=== PATIENT | female | born 1995 | race Caucasian/White ===

== ENCOUNTER → 2016-06-05 | Outpatient (CLI) | payer OTHER ==
[~2016-06-05] MED LIST: ATV5X PO; BCPILLS PO; CALC500C73 PO; CHOL1CAP85 PO; EPP3/2 IM; ERGO500037 PO; GLGKIT INJ; INSPMPNVLG; INSPMPNVLG SQ; LINA1CAP PO; LORA-741 PO; LXT PO; MRLP527 PO; MULT1CHW44 PO; ONDA-63 PO; RANI150T2 PO; SIME80CH PO; VITAMIN D2 PO; VNTHFA/IN INH; VTMD PO
[2016-06-06 07:33] LABS: ESTIMATED AVERAGE GLUCOSE 206 mg/dl; HA1C FLAG Normal (Normal)
== END | disposition home or self-care (01) ==
LOC: C.LAB1850 14:31
PROVIDERS: ATTEND Internal Medicine Endocrinology, Diabetes & Metabolism
DX: E10.9 Type 1 diabetes mellitus without complications (principal)

== ENCOUNTER 2016-06-08 11:22 | Emergency (ER) | payer OTHER ==
[~2016-06-08] VITALS: Ht 162.6 cm; Wt 57.8 kg
[2016-06-08 11:26] VITALS: TEMP 37; Ht 162.6 cm; Wt 57.8 kg
[2016-06-08] MEDS ORDERED: NovoLIN-R INSULIN PER UNIT CHARGE IV STA (11:55)
[2016-06-08] MEDS ORDERED: SODIUM CHLORIDE 0.9% 1000ML 1,000 ML IV STA ×2 (11:55)
[2016-06-08 12:14] LABS: HEMATOCRIT 40.7 % (37-47); MEAN CELL VOLUME 85.5 fL (80-100); MEAN CORPUSCULAR HEMOGLOBIN 30.5 pg (25-34); MEAN CORPUSCULAR HGB CONC 35.6 g/dl (32-36); MEAN PLATELET VOLUME 11.8 fL (7.4-10.4); PLATELET COUNT 300 K/uL (130-400); RED BLOOD COUNT 4.76 M/uL (4.2-5.4); WHITE BLOOD COUNT 8.63 K/uL (4.8-10.8)
[2016-06-08 12:28] LABS: BETA-HYDROXYBUTYRATE 17.44 mg/dL (0.2-2.81); CALCIUM 8.7 mg/dl (8.5-10.1); POTASSIUM 4.1 mmol/L (3.5-5.1)
[2016-06-08 12:31] LABS: BUN/CREATININE RATIO 11.2 (10-20)
[2016-06-08 12:33] LABS: VEN BLD GAS O2 SATURATION 93.7 %; VEN BLOOD GAS BASE EXCESS -1.9 mmol/L
[2016-06-08 13:07] LABS: URINE APPEARANCE CLEAR (CLEAR); URINE BILIRUBIN NEG (NEG); URINE COLOR YELLOW; URINE NITRITE NEG (NEG); URINE SPECIFIC GRAVITY 1.035 (1.000-1.030); UROBILINOGEN NEG (NEG)
[2016-06-08 13:30] LABS: MANUAL MICROSCOPIC REQUIRED? NO; REVIEW REQ? NO
[2016-06-08 15:52] VITALS: BP 99/64; PULSE 78; O2SAT 98
[2016-06-08] MEDS ORDERED: INSPMPNVLG SQ (17:12)
--- NOTE | 2016-06-08 17:26 | EMERGENCY ROOM VISIT NOTE ---
History Report prepared by Jesúsiblino: Red Conroy Under the Supervision of: Dr. Mick Escudero M.D. First contact with patient: 11:52 Chief Complaint: HYPERGLYCEMIA Stated Complaint: ELEVATED BLOOD SUGAR AND KETONES Nursing Triage Summary: Noted occlusion in insulin pump around 1000 this am. Adjusted pump and checked bsg. Came to ED to help with elevated bsg. HX DM 1. History of Present Illness The patient is a 20 year old female who presents to the Emergency Room with complaints of acute hyperglycemia since this morning. The patient found that her insulin pump was not functioning this morning. She changed her cartridge, checked the tubing, and changed her cannula. The patient noticed an air bubble in the tubing. The patient did not check her blood sugar last night. The patient checked her sugar this morning when her pump was not functioning, which was 505. The patient is otherwise feeling nauseous and disoriented. She did not take any extra insulin. The patient admits that she has not been keeping up with her fluids. The patient has a history of Gilbert Syndrome. Source of History: patient Onset: this morning Position: other (blood sugar) Symptom Intensity: BSG 505 Quality: other (hyperglycemia) Timing: other (acute) Associated Symptoms: + nausea Review of Systems See HPI for pertinent positives & negatives. A total of 10 systems reviewed and were otherwise negative. Past Medical & Surgical Medical Problems: (1) Anxiety (2) Bipolar 1 disorder (3) Celiac disease (4) Type I diabetes mellitus Surgical Problems: (1) Hx of cataract surgery Family History Cancer Diabetes mellitus FHx: celiac disease Gallbladder disease Heart disease Hypertension Seizures Social History Smoking Status: Never Smoker Alcohol Use: none Drug Use: none Marital Status: single Housing Status: lives with roommate Occupation Status: [employer] student Current/Historical Medications Scheduled Control Pills ( Control Pills), 1 TAB PO DAILY Insulin Aspart (novoLOG INSULIN PUMP ), 1 EA SQ UD Ranitidine HCl (Ranitidine HCl), 150-300 MG PO HS Scheduled PRN Epinephrine (Epipen), 0.3 MG IM UD PRN for ALLERGIC REACTION Glucagon (Glucagon Emergency Kit), 1 MG INJ UD PRN for HYPOGLYCEMIA PROTOCOL Lorazepam (Ativan), 0.5 MG PO Q6H PRN for Anxiety Ondansetron (Ondansetron HCl), 8 MG PO Q8 PRN for Nausea Allergies Coded Allergies: Cashew (Verified Allergy, Severe, ANAPHYLAXIS, 06/08/16) Gluten (Verified Allergy, Severe, CELIAC'S DISEASE, 06/08/16) Peanut (Verified Allergy, Severe, ANAPHYLAXIS, 06/08/16) Penicillins (Verified Allergy, Severe, ANAPHYLAXIS, 06/08/16) SHELL FISH (Verified Allergy, Severe, ANAPHYLAXIS, 06/08/16) Milk (Unverified Allergy, Unknown, SENSITIVITY, 06/08/16) Oxcarbazepine (Verified Allergy, Unknown, Rash,hives and itchiness., ) Soy Allergy (Unverified Allergy, Unknown, , 06/08/16) Physical Exam Vital Signs Date Time Temp Pulse Resp B/P Pulse Ox O2 Delivery O2 Flow Rate FiO2 06/08/16 15:52 78 16 99/64 98 Room Air 06/08/16 14:45 76 16 106/61 98 Room Air 06/08/16 13:15 86 16 102/64 97 Room Air 06/08/16 11:26 37.0 114 18 111/76 96 Room Air Physical Exam GENERAL: Patient is in no acute distress. HEENT: No acute trauma, normocephalic atraumatic, mucous membranes moist, no nasal congestion, no scleral icterus. NECK: No stridor, no adenopathy, no meningismus, trachea is midline. LUNGS: Clear to auscultation bilaterally, no wheeze, no rhonchi, breath sounds equal. HEART: Without murmurs gallops or rubs, regular rate and rhythm. ABDOMEN: Soft, nontender, bowel sounds positive, no hernias, no peritonitis. EXTREMITIES: No cyanosis or edema, full range of motion of all the joints without pain or difficulty, no signs for acute trauma. NEUROLOGIC: Oriented x 3, no acute motor or sensory deficits, no focal weakness. SKIN: No rash, no jaundice, no diaphoresis. Medical Decision & Procedures Laboratory Results 06/08/16 11:45 06/08/16 11:45 Test 06/08/16 11:45 06/08/16 12:14 06/08/16 12:39 06/08/16 15:18 Red Blood Count 4.76 M/uL (4.2-5.4) Mean Corpuscular Volume 85.5 fL (80-100) Mean Corpuscular Hemoglobin 30.5 pg (25-34) Mean Corpuscular Hemoglobin Concent 35.6 g/dl (32-36) RDW Standard Deviation 36.1 fL (36.4-46.3) RDW Coefficient of Variation 11.7 % (11.5-14.5) Mean Platelet Volume 11.8 fL (7.4-10.4) Anion Gap 15.0 mmol/L (3-11) Est Creatinine Clear Calc Drug Dose 76.9 ml/min Estimated GFR () 93.3 Estimated GFR (Non- 80.5 BUN/Creatinine Ratio 11.2 (10-20) Calcium Level 8.7 mg/dl (8.5-10.1) Beta-Hydroxybutyric Acid 17.44 mg/dL (0.2-2.81) Venous Blood pH 7.45 (7.36-7.41) Venous Blood Partial Pressure CO2 31 mmHg (38.0-50.0) Venous Blood Partial Pressure O2 69 mmHg Venous Blood HCO3 21 mmol/L Venous Blood Oxygen Saturation 93.7 % Venous Blood Base Excess -1.9 mmol/L Urine Color YELLOW Urine Appearance CLEAR (CLEAR) Urine pH 5.0 (4.5-7.5) Urine Specific [place] 1.035 (1.000-1.030) Urine Protein NEG (NEG) Urine Glucose (UA) 3+ (NEG) Urine Ketones 3+ (NEG) Urine Occult Blood NEG (NEG) Urine Nitrite NEG (NEG) Urine Bilirubin NEG (NEG) Urine Urobilinogen NEG (NEG) Urine Leukocyte Esterase NEG (NEG) Bedside Glucose 204 mg/dl (70-90) Laboratory results reviewed by me. Medications Administered Medications (Trade) Dose Ordered Sig/Freddy Route Start Time Stop Time Status Last Admin Dose Admin Sodium Chloride 1,000 ml @ 999 mls/hr Q1H1M STAT IV 06/08/16 11:55 06/08/16 12:55 DC 06/08/16 11:55 999 MLS/HR Sodium Chloride (Nss 1000ml) 1,000 ml @ 125 mls/hr Q8H STAT IV 06/08/16 11:55 06/08/16 16:35 DC 06/08/16 13:14 125 MLS/HR Insulin Human Regular (novoLIN-R U-100 PER UNIT) 10 units NOW STAT IV 06/08/16 11:55 06/08/16 11:59 DC 06/08/16 12:29 10 UNITS ED Course 1155: The patient was evaluated in room C1b. A complete history and physical exam was performed. 1155: Insulin Human Regular 10 units IV, NSS 100 ml @ 125 mls/hr, NSS 1000 ml @ 999 mls/hr. 1350: The patient is doing okay. We will keep her basal rate of insulin going. She requested something to eat. 1440: The patient is still doing well. 1545: Reassessed the patient. She is doing well. Discussed the findings with her. She verbalized understanding and agreement of the treatment plan. The patient is ready for discharge. Medical Decision Differential diagnosis includes dehydration, electrolyte imbalance, hyperglycemia, infection, DKA. There is no leukocytosis or anemia. No kidney failure. Sugar was elevated at over 400. Urinalysis showed ketones, no signs of infection. VBG does not show acidosis. The patient received IV saline, IV insulin. Her sugar is now in the upper 100s and low 200s, repeat BSGs confirmed a reasonable value. The patient has restarted her insulin pump at her basal rate. She did eat a meal here. She feels markedly improved and does think she can be discharged home. I do think discharge is reasonable. The patient's insulin pump was malfunctioning, as result her sugar angelia, things are now controlled, she is being discharged home. Impression Primary Impression: Hyperglycemia Additional Impression: Dehydration Scribe Attestation The scribe's documentation has been prepared under my direction and personally reviewed by me in its entirety. I confirm that the note above accurately reflects all work, treatment, procedures, and medical decision making performed by me. Departure Information Dispostion Home / Self-Care Referrals Jorge Mancera D.O.Int.Med. (PCP) Forms HOME CARE DOCUMENTATION FORM, IMPORTANT VISIT INFORMATION, WORK / SCHOOL INSTRUCTIONS Patient Instructions My [facility] [employer] Additional Instructions keep close watch on your sugar for the next 2 days more fluids today to increase your hydration return to the ER for vomiting, fever, or worsening sugar values Problem Qualifiers
[2016-06-08] MEDS ORDERED: LORA-741 PO (18:57)
[2016-07-31] MEDS ORDERED: GLGKIT INJ (15:25)
[2016-07-31] MEDS ORDERED: ONDA-63 PO (15:25)
[2016-07-31] MEDS ORDERED: RANI150T2 PO (15:25)
[2016-07-31] MEDS ORDERED: EPP3/2 IM (17:13)
[2016-07-31] MEDS ORDERED: VNTHFA/IN INH (18:16)
[2016-07-31] MEDS ORDERED: INSPMPNVLG (18:16)
[2016-11-27] MEDS ORDERED: LINA1CAP PO (16:44)
== END 2016-06-08 16:01 | disposition home or self-care (01) ==
LOC: C.EDB 11:24 → C.EDC 16:01
DX: E10.65 Type 1 diabetes mellitus with hyperglycemia (principal); E86.0 Dehydration; F41.9 Anxiety disorder, unspecified; F31.9 Bipolar disorder, unspecified; K90.0 Celiac disease; Z96.41 Presence of insulin pump (external) (internal)

== ENCOUNTER 2016-07-27 20:53 | Emergency (ER) | payer OTHER ==
[~2016-07-27] VITALS: Ht 162.6 cm; Wt 59.5 kg
[~2016-07-27 20:53] MED LIST changes: -ATV5X PO; -BCPILLS PO; -CALC500C73 PO; -CHOL1CAP85 PO; -EPP3/2 IM; -ERGO500037 PO; -GLGKIT INJ; -INSPMPNVLG; -LINA1CAP PO; -LXT PO; -MRLP527 PO; -MULT1CHW44 PO; -ONDA-63 PO; -RANI150T2 PO; -SIME80CH PO; -VITAMIN D2 PO; -VNTHFA/IN INH; -VTMD PO
[2016-07-27 20:59] VITALS: TEMP 37; Ht 162.6 cm; Wt 59.5 kg
[2016-07-27] MEDS ORDERED: LXT PO (21:19)
[2016-07-27] MEDS ORDERED: SODIUM CHLORIDE 0.9% 1000ML 1,000 ML IV ONE (22:00)
[2016-07-27 23:06] LABS: BASO % 0.4 %; BASO ABS # 0.03 K/uL (0-0.2); COMPLETE YES; EOS % 1.3 %; HEMATOCRIT 38.7 % (37-47); IG% 0.1 %; LYMPH % 22.4 %; LYMPH ABS # 1.73 K/uL (1.2-3.4); MEAN CELL VOLUME 90.2 fL (80-100); MEAN CORPUSCULAR HEMOGLOBIN 31.5 pg (25-34); MEAN CORPUSCULAR HGB CONC 34.9 g/dl (32-36); MEAN PLATELET VOLUME 10.8 fL (7.4-10.4); MONO % 14.2 %; NEUT % 61.6 %; PLATELET COUNT 287 K/uL (130-400); RED BLOOD COUNT 4.29 M/uL (4.2-5.4); WHITE BLOOD COUNT 7.73 K/uL (4.8-10.8)
[2016-07-27 23:06] LABS: URINE APPEARANCE CLEAR (CLEAR); URINE BILIRUBIN NEG (NEG); URINE COLOR DK YELLOW; URINE EPITHELIAL CELL AUTO >30 /lpf (0-5); URINE NITRITE NEG (NEG); URINE SPECIFIC GRAVITY 1.034 (1.000-1.030); UROBILINOGEN NEG (NEG); ZZUR CULT IF INDIC CLEAN CATCH YES
[2016-07-27 23:07] LABS: MANUAL MICROSCOPIC REQUIRED? NO; REVIEW REQ? YES
[2016-07-27 23:23] LABS: BLOOD UREA NITROGEN 12 mg/dl (7-18); CREATININE 0.59 mg/dl (0.60-1.20); GLUCOSE 112 mg/dl (70-99)
[2016-07-27 23:24] LABS: ALT/SGPT 17 U/L (12-78); AST/SGOT 10 U/L (15-37); CARBON DIOXIDE 31 mmol/L (21-32); CHLORIDE 108 mmol/L (98-107); MAGNESIUM 1.9 mg/dl (1.8-2.4); POTASSIUM 3.9 mmol/L (3.5-5.1); SODIUM 144 mmol/L (136-145)
[2016-07-27 23:27] LABS: CALCIUM 8.4 mg/dl (8.5-10.1)
[2016-07-27 23:34] LABS: ALB/GLOB RATIO 1.3 (0.9-2); ALKALINE PHOSPHATASE 65 U/L (45-117)
[2016-07-27 23:49] LABS: ACETAMINOPHEN < 2 ug/ml (10-30)
[2016-07-28 00:19] VITALS: BP 109/68; PULSE 71; O2SAT 98
[2016-07-28 01:20] LABS: BENZODIAZEPINE, URINE NEG (NEG); COCAINE,URINE NEG (NEG); PHENCYCLIDINE, URINE NEG (NEG)
--- NOTE | 2016-07-28 04:51 | EMERGENCY ROOM VISIT NOTE ---
History First contact with patient: 21:40 Chief Complaint: OVERDOSE (INTENTIONAL) Stated Complaint: LAXATIVE ABUSE, History of Present Illness The patient is a 21 year old female who presents to the Emergency Room with complaints of intentional laxative use today. The patient states that she has had some increased stressors this week. She states that she had an email this afternoon that worsened her anxiety, and she began taking an [id number] laxative. She states that she took 3 pills 6 hours ago and 5 pills 3 hours ago. The patient has not had vomiting or diarrhea at this point. She does use laxatives on a somewhat regular basis for history of diabetic gastroparesis. She does have her pill bottle with her, and it appears that she took a generic Senokot. The patient was not trying to harm herself and she does not have suicidal or homicidal ideation. She has outpatient counseling twice weekly, as well as monthly psychiatry visits. She does have Ativan that she will use when necessary. The patient has not been ill recently. She denies chance of . She is without additional symptoms. She rates her discomfort a 0/ 10. Review of Systems More than 10 systems were reviewed and otherwise negative with the exception of history of present illness. Past Medical/Surgical History Medical Problems: (1) Anxiety (2) Bipolar 1 disorder (3) Celiac disease (4) Type I diabetes mellitus Surgical Problems: (1) Hx of cataract surgery Family History Cancer Diabetes mellitus FHx: celiac disease Gallbladder disease Heart disease Hypertension Seizures Social History Smoking Status: Former Smoker Alcohol Use: none Drug Use: none Marital Status: single Housing Status: lives with roommate Occupation Status: [employer] student Current/Historical Medications Scheduled Control Pills ( Control Pills), 1 TAB PO DAILY Calcium Carbonate (Calcium), 4 TABS PO DAILY Insulin Aspart (novoLOG INSULIN PUMP ), 1 EA SQ UD Laxative (Laxative), 1 TAB PO DIRECTED Multiple Vitamins W/ Minerals (Airborne Gummies), 2 TAB PO DAILY Ranitidine HCl (Ranitidine HCl), 150-300 MG PO HS Scheduled PRN Epinephrine (Epipen), 0.3 MG IM UD PRN for ALLERGIC REACTION Glucagon (Glucagon Emergency Kit), 1 MG INJ UD PRN for HYPOGLYCEMIA PROTOCOL Lorazepam (Ativan), 0.5 MG PO Q6H PRN for Anxiety Ondansetron (Ondansetron HCl), 8 MG PO Q8 PRN for Nausea Allergies Coded Allergies: Cashew (Verified Allergy, Severe, ANAPHYLAXIS, 07/27/16) Gluten (Verified Allergy, Severe, CELIAC'S DISEASE, 07/27/16) Peanut (Verified Allergy, Severe, ANAPHYLAXIS, 07/27/16) Penicillins (Verified Allergy, Severe, ANAPHYLAXIS, 07/27/16) SHELL FISH (Verified Allergy, Severe, ANAPHYLAXIS, 07/27/16) Milk (Unverified Allergy, Unknown, SENSITIVITY, 07/27/16) Oxcarbazepine (Verified Allergy, Unknown, Rash,hives and itchiness., ) Soy Allergy (Unverified Allergy, Unknown, , 07/27/16) Physical Exam Vital Signs Date Time Temp Pulse Resp B/P Pulse Ox O2 Delivery O2 Flow Rate FiO2 07/28/16 00:19 71 16 109/68 98 07/27/16 20:59 37.0 113 18 108/74 97 Room Air Physical Exam VITALS: Vitals are noted on the nurse's note and reviewed by myself. Vital signs stable. GENERAL: Well-developed, well-nourished, white female, who is in no acute distress and resting comfortably. Patient is cooperative with the examination. HEAD: Normocephalic atraumatic. EARS: External ear normal. External auditory canals clear, tympanic membranes pearly curry without erythema or effusion bilaterally. EYES: Pupils equal round and reactive to light and accommodation. Conjunctivae without injection, sclerae without icterus. Extraocular movements intact. NOSE: Patent, turbinates without inflammation or discharge. MOUTH: Mucous membranes moist. Tonsils are not enlarged. Pharynx without erythema, blood, or exudate. Uvula midline. Airway patent. NECK: Supple without nuchal rigidity. No lymphadenopathy. No thyromegaly. Cervical spine is nontender. HEART: Regular rate and rhythm without murmurs gallops or rubs. LUNGS: Clear to auscultation bilaterally without wheezes, rales or rhonchi. No retractions or accessory muscle use. ABDOMEN: Positive normal bowel sounds x 4. Soft, nontender, without masses or organomegaly. No guarding or rebound tenderness. MUSCULOSKELETAL: No muscle atrophy, erythema, or edema noted. Full range of motion without joint tenderness in all extremities. No tenderness to palpation. Normal gait. Strength 5/5 throughout. NEURO: Patient was alert and oriented to person place and time. CN II through XII grossly intact. Deep tendon reflexes 2+ throughout. No focal neurological deficits SKIN: The skin was without rashes, erythema, edema, or bruising. Capillary reflex less than 2 seconds. Medical Decision & Procedures Laboratory Results 07/27/16 22:47 Red Blood Count 4.29, Mean Corpuscular Volume 90.2, Mean Corpuscular Hemoglobin 31.5, Mean Corpuscular Hemoglobin Concent 34.9, Mean Platelet Volume 10.8, Neutrophils (%) (Auto) 61.6, Lymphocytes (%) (Auto) 22.4, Monocytes (%) (Auto) 14.2, Eosinophils (%) (Auto) 1.3, Basophils (%) (Auto) 0.4, Neutrophils # (Auto ) 4.76, Lymphocytes # (Auto) 1.73, Monocytes # (Auto) 1.10, Eosinophils # (Auto ) 0.10, Basophils # (Auto) 0.03 07/27/16 22:47 Test 07/27/16 22:10 07/27/16 22:47 07/27/16 22:58 Urine Color DK YELLOW Urine Appearance CLEAR (CLEAR) Urine pH 6.0 (4.5-7.5) Urine Specific [place] 1.034 (1.000-1.030) Urine Protein NEG (NEG) Urine Glucose (UA) NEG (NEG) Urine Ketones TRACE (NEG) Urine Occult Blood NEG (NEG) Urine Nitrite NEG (NEG) Urine Bilirubin NEG (NEG) Urine Urobilinogen NEG (NEG) Urine Leukocyte Esterase SMALL (NEG) Urine WBC (Auto) 5-10 /hpf (0-5) Urine RBC (Auto) 0-4 /hpf (0-4) Urine Hyaline Casts (Auto) 1-5 /lpf (0-5) Urine Epithelial Cells (Auto) >30 /lpf (0-5) Urine Bacteria (Auto) 1+ (NEG) Urine Test NEG (NEG) Urine Opiates Screen NEG (NEG) Urine Methadone, Qualitative NEG (NEG) Urine Barbiturates NEG (NEG) Urine Phencyclidine (PCP) Level NEG (NEG) Ur Amphetamine/Methamphetamine NEG (NEG) MDMA (Ecstasy) Screen NEG (NEG) Urine Benzodiazepines Screen NEG (NEG) Urine Cocaine Metabolite NEG (NEG) Urine Marijuana (THC) NEG (NEG) White Blood Count 7.73 K/uL (4.8-10.8) Red Blood Count 4.29 M/uL (4.2-5.4) Hemoglobin 13.5 g/dL (12.0-16.0) Hematocrit 38.7 % (37-47) Mean Corpuscular Volume 90.2 fL (80-100) Mean Corpuscular Hemoglobin 31.5 pg (25-34) Mean Corpuscular Hemoglobin Concent 34.9 g/dl (32-36) Platelet Count 287 K/uL (130-400) Mean Platelet Volume 10.8 fL (7.4-10.4) Neutrophils (%) (Auto) 61.6 % Lymphocytes (%) (Auto) 22.4 % Monocytes (%) (Auto) 14.2 % Eosinophils (%) (Auto) 1.3 % Basophils (%) (Auto) 0.4 % Neutrophils # (Auto) 4.76 K/uL (1.4-6.5) Lymphocytes # (Auto) 1.73 K/uL (1.2-3.4) Monocytes # (Auto) 1.10 K/uL (0.11-0.59) Eosinophils # (Auto) 0.10 K/uL (0-0.5) Basophils # (Auto) 0.03 K/uL (0-0.2) RDW Standard Deviation 40.9 fL (36.4-46.3) RDW Coefficient of Variation 12.4 % (11.5-14.5) Immature Granulocyte % (Auto) 0.1 % Immature Granulocyte # (Auto) 0.01 K/uL (0.00-0.02) Anion Gap 5.0 mmol/L (3-11) Est Creatinine Clear Calc Drug Dose 129.2 ml/min Estimated GFR () > 150.0 Estimated GFR (Non- 130.1 BUN/Creatinine Ratio 21.0 (10-20) Calcium Level 8.4 mg/dl (8.5-10.1) Magnesium Level 1.9 mg/dl (1.8-2.4) Total Bilirubin 1.4 mg/dl (0.2-1) Aspartate Amino Transf (AST/SGOT) 10 U/L (15-37) Alanine Aminotransferase (ALT/SGPT) 17 U/L (12-78) Alkaline Phosphatase 65 U/L (45-117) Total Protein 7.3 gm/dl (6.4-8.2) Albumin 4.1 gm/dl (3.4-5.0) Globulin 3.2 gm/dl (2.5-4.0) Albumin/Globulin Ratio 1.3 (0.9-2) Thyroid Stimulating Hormone (TSH) 1.890 uIu/ml (0.300-4.500) Salicylates Level < 1.7 mg/dl (2.8-20) Acetaminophen Level < 2 ug/ml (10-30) Ethyl Alcohol mg/dL < 3.0 mg/dl (0-3) Bedside Glucose 100 mg/dl (70-90) Medications Administered Medications (Trade) Dose Ordered Sig/Freddy Route Start Time Stop Time Status Last Admin Dose Admin Sodium Chloride (Nss 1000ml) 1,000 ml @ 999 mls/hr Q1H1M ONCE IV 07/27/16 22:00 07/27/16 23:00 DC 07/27/16 22:58 999 MLS/HR ED Course Physical exam and history were performed. Nursing notes and EMR were reviewed. Patient appears to have taken 8 [id number] Senokot over the past 6 hours. This was not a suicidal attempt or attempt to harm herself. The patient uses laxatives due to her history of diabetic gastroparesis, and she states that she had increased anxiety today. She does not appear toxic on examination. IV access was established and labs were obtained. The patient was hydrated with normal saline. Despite taking a laxative she has not had a bowel movement. I did contact [facility], who recommended hydration and normal blood work. The patient's blood work is as above and was reviewed. She does not have a significant elevated white blood cell count or gross anemia, bandemia, or significant electrolyte imbalance. Transaminases are nondiagnostic. Tylenol and salicylate levels are negative. TSH is euthyroid. Alcohol is negative. Drug of abuse screen was also negative. At this point the patient was felt to be medically cleared. I did engage the emergency department psychiatric casework manager, who also evaluated the patient. The patient does contract for safety, and is not felt to be at high risk for self-harm. She does have appropriate outpatient services, and otherwise medically appears well. I recommended the patient drink plenty of fluids and remain well hydrated, as she will likely have a bowel movement later tonight. The patient was thoroughly evaluated back to the ER with any new, worsening, or concerning symptoms. She is to follow with her counselor and psychiatrist as scheduled next week. She voiced understanding of this and rated her discomfort a 0/10 at the time of departure. The chart was completed utilizing [employer] Voice Recognition Software. Grammatical errors, random word insertions, pronoun errors, and incomplete sentences are an occasional consequence of this system due to software limitations, ambient noise, and hardware issues. Any formal questions or concerns about the content, text, or information contained within the body of this dictation should be directly addressed to the provider for clarification. . Medical Decision Differential diagnosis: Etiologies such as mood disorder, infection, hypoglycemia, electrolyte abnormalities, cardiac sources, intracerebral event, toxicologic, neurologic, as well as others were entertained. Impression Primary Impression: Medication overdose Departure Information Referrals Jorge Mancera D.O.Int.Med. (PCP) Patient Instructions [facility]
[2016-07-31] MEDS ORDERED: ONDA-63 PO (15:25)
[2016-07-31] MEDS ORDERED: GLGKIT INJ (15:25)
[2016-07-31] MEDS ORDERED: RANI150T2 PO (15:25)
[2016-07-31] MEDS ORDERED: EPP3/2 IM (17:13)
[2016-07-31] MEDS ORDERED: VNTHFA/IN INH (18:16)
[2016-07-31] MEDS ORDERED: INSPMPNVLG (18:16)
[2016-11-27] MEDS ORDERED: LINA1CAP PO (16:44)
== END 2016-07-28 00:20 | disposition home or self-care (01) ==
LOC: C.EDB 20:53
DX: T47.4X1A Poisoning by other laxatives, accidental (unintentional), initial encounter (principal); F41.9 Anxiety disorder, unspecified; F31.9 Bipolar disorder, unspecified; K90.0 Celiac disease; Z98.49 Cataract extraction status, unspecified eye; Z83.3 Family history of diabetes mellitus; Z82.49 Family history of ischemic heart disease and other diseases of the circulatory system; Z82.0 Family history of epilepsy and other diseases of the nervous system; Z87.891 Personal history of nicotine dependence; Z79.3 Long term (current) use of hormonal contraceptives; Z79.4 Long term (current) use of insulin; Z79.899 Other long term (current) drug therapy; E10.43 Type 1 diabetes mellitus with diabetic autonomic (poly)neuropathy

== ENCOUNTER 2016-07-31 17:18 | Inpatient (IN) | payer OTHER ==
[~2016-07-31] VITALS: Ht 162.6 cm; Wt 60.6 kg
[~2016-07-31 17:18] MED LIST changes: +LXT PO
[2016-07-31] MEDS ORDERED: SODIUM CHLORIDE 0.9% 1000ML 1,000 ML IV STA ×2 (17:52→18:38)
--- NOTE | 2016-07-31 17:54 | EMERGENCY ROOM VISIT NOTE ---
History Report prepared by Jere: Karen Triana Under the Supervision of: Dr. Chau Nix M.D. First contact with patient: 17:43 Chief Complaint: HYPERGLYCEMIA Stated Complaint: NAUSEA, HYPERGLYCEMIA, DIZZY, COLD Nursing Triage Summary: Pt states got a "high" reading, has an insulin pump. Reports large amount of ketones. "[place] off this morning, but I also have a cold." Denies emesis. History of Present Illness The patient is a 21 year old female who presents to the Emergency Room with complaints of persistent hyperglycemia. The patient is a Type 1 diabetic. She reports a high reading K 12 PRINCIPAL. She does have an insulin pump. The patient mentions that she noticed large amount of ketones in her urine today. Associated symptoms include "feeling off" and being unable to regulate her temperature. She adds that she has also been experiencing cold symptoms over the past week. These symptoms include a cough and congestion. The patient has been a diabetic for 8 years. She has experienced DKA 2 times in the past. Last episode of DKA was 2 1/2 years ago. The patient denies vomiting, syncope, diarrhea, rashes, and any additional associated symptoms. Source of History: patient Onset: K 12 PRINCIPAL Position: other (Global ) Timing: other (Persistent) Modifying Factors (Relieving): other (None) Associated Symptoms: No diarrhea, No rash, No vomiting Review of Systems See HPI for pertinent positives & negatives. A total of 10 systems reviewed and were otherwise negative. Past Medical & Surgical Medical Problems: (1) Anxiety (2) Bipolar 1 disorder (3) Celiac disease (4) Type I diabetes mellitus Surgical Problems: (1) Hx of cataract surgery Family History Cancer Diabetes mellitus FHx: celiac disease Gallbladder disease Heart disease Hypertension Seizures Social History Smoking Status: Never Smoker Alcohol Use: none Drug Use: none Marital Status: single Housing Status: lives with roommate Occupation Status: student Current/Historical Medications Scheduled Control Pills ( Control Pills), 1 TAB PO DAILY Calcium Carbonate (Calcium), 2,000 MG PO DAILY Ergocalciferol (Vitamin D), 50,000 INTER.UNIT PO Q2 WEEKS Insulin Aspart (novoLOG INSULIN PUMP ), 1 EA N/A UD Multiple Vitamins W/ Minerals (Airborne Gummies), 2 TABS PO DAILY Ranitidine HCl (Ranitidine HCl), 150-300 MG PO HS Scheduled PRN Albuterol Hfa (Ventolin Hfa), 2 PUFFS INH UD PRN for Prior to Exercise Epinephrine (Epipen), 0.3 MG IM UD PRN for ALLERGIC REACTION Glucagon (Glucagon Emergency Kit), 1 MG INJ UD PRN for HYPOGLYCEMIA PROTOCOL Lorazepam (Lorazepam), 0.5 MG PO DAILY PRN for Anxiety Ondansetron (Ondansetron HCl), 8 MG PO Q8 PRN for Nausea Polyethylene (Polyethylene Glycol 3350), 17 GM PO DAILY PRN for Constipation Allergies Coded Allergies: Cashew (Verified Allergy, Severe, ANAPHYLAXIS, 07/27/16) Gluten (Verified Allergy, Severe, CELIAC'S DISEASE, 07/27/16) Peanut (Verified Allergy, Severe, ANAPHYLAXIS, 07/27/16) Penicillins (Verified Allergy, Severe, ANAPHYLAXIS, 07/27/16) SHELL FISH (Verified Allergy, Severe, ANAPHYLAXIS, 07/27/16) Milk (Unverified Allergy, Unknown, SENSITIVITY, 07/27/16) Oxcarbazepine (Verified Allergy, Unknown, Rash,hives and itchiness., ) Soy Allergy (Unverified Allergy, Unknown, , 07/27/16) Physical Exam Vital Signs Date Time Temp Pulse Resp B/P Pulse Ox O2 Delivery O2 Flow Rate FiO2 07/31/16 18:36 109 07/31/16 18:33 109 20 115/66 98 Room Air 07/31/16 17:36 36.9 114 20 106/66 96 Room Air Physical Exam GENERAL: Patient is mildly anxious appearing and in no acute distress. HEENT: No acute trauma, normocephalic atraumatic, mucous membranes dry, no nasal congestion, no scleral icterus. NECK: No stridor, no adenopathy, no meningismus, trachea is midline. LUNGS: No dyspnea. Clear to auscultation and equal bilaterally. No wheeze, no rhonchi. HEART: Tachycardic, regular rhythm. No murmurs, rubs, gallops appreciated. ABDOMEN: Soft, nontender, bowel sounds positive, no masses appreciated, no peritonitis. BACK: No midline tenderness, no CVA tenderness EXTREMITIES: Normal motion all extremities, no cyanosis, no edema. NEUROLOGIC: Alert and oriented, no acute motor or sensory deficits, no focal weakness, cranial nerves grossly intact. SKIN: No rash, no jaundice, no diaphoresis. Medical Decision & Procedures ER Provider Diagnostic Interpretation: X ray results are stated below per my interpretation and the radiologist's interpretation. SINGLE VIEW CHEST CLINICAL HISTORY: Generalized weakness. FINDINGS: An AP, portable, upright chest radiograph is compared to study dated 08/27/2015 and correlated with chest CT dated 01/23/2016. The cardiomediastinal silhouette is unremarkable. The lungs and pleural spaces are clear. No pneumothorax is seen. The bony thorax is grossly intact. IMPRESSION: No active disease in the chest. Electronically signed by: Mick Jin M.D. 07/31/2016 6:22 PM Dictated Date/Time: 07/31/2016 6:21 PM Laboratory Results 07/31/16 18:10 Red Blood Count 4.23, Mean Corpuscular Volume 90.1, Mean Corpuscular Hemoglobin 31.2, Mean Corpuscular Hemoglobin Concent 34.6, Mean Platelet Volume 11.4, Neutrophils (%) (Auto) 78.8, Lymphocytes (%) (Auto) 13.0, Monocytes (%) (Auto) 7.6, Eosinophils (%) (Auto) 0.1, Basophils (%) (Auto) 0.4, Neutrophils # (Auto) 6.29, Lymphocytes # (Auto) 1.04, Monocytes # (Auto) 0.61, Eosinophils # (Auto) 0.01, Basophils # (Auto) 0.03 07/31/16 18:10 Test 07/31/16 17:52 07/31/16 18:10 07/31/16 18:15 07/31/16 18:18 Creatine Kinase MB Ratio (0-3.0) White Blood Count 7.99 K/uL (4.8-10.8) Red Blood Count 4.23 M/uL (4.2-5.4) Hemoglobin 13.2 g/dL (12.0-16.0) Hematocrit 38.1 % (37-47) Mean Corpuscular Volume 90.1 fL (80-100) Mean Corpuscular Hemoglobin 31.2 pg (25-34) Mean Corpuscular Hemoglobin Concent 34.6 g/dl (32-36) Platelet Count 279 K/uL (130-400) Mean Platelet Volume 11.4 fL (7.4-10.4) Neutrophils (%) (Auto) 78.8 % Lymphocytes (%) (Auto) 13.0 % Monocytes (%) (Auto) 7.6 % Eosinophils (%) (Auto) 0.1 % Basophils (%) (Auto) 0.4 % Neutrophils # (Auto) 6.29 K/uL (1.4-6.5) Lymphocytes # (Auto) 1.04 K/uL (1.2-3.4) Monocytes # (Auto) 0.61 K/uL (0.11-0.59) Eosinophils # (Auto) 0.01 K/uL (0-0.5) Basophils # (Auto) 0.03 K/uL (0-0.2) RDW Standard Deviation 40.5 fL (36.4-46.3) RDW Coefficient of Variation 12.3 % (11.5-14.5) Immature Granulocyte % (Auto) 0.1 % Immature Granulocyte # (Auto) 0.01 K/uL (0.00-0.02) Est Creatinine Clear Calc Drug Dose 69.3 ml/min Estimated GFR () 82.5 Estimated GFR (Non- 71.2 BUN/Creatinine Ratio 25.1 (10-20) Estimated Average Glucose 194 mg/dl Hemoglobin A1c 8.4 % (4.5-5.6) Calcium Level 9.3 mg/dl (8.5-10.1) Phosphorus Level 3.5 mg/dl (2.5-4.9) Magnesium Level 1.9 mg/dl (1.8-2.4) Total Bilirubin 2.6 mg/dl (0.2-1) Direct Bilirubin 0.4 mg/dl (0-0.2) Aspartate Amino Transf (AST/SGOT) 28 U/L (15-37) Alanine Aminotransferase (ALT/SGPT) 25 U/L (12-78) Alkaline Phosphatase 104 U/L (45-117) Creatine Kinase MB < 0.5 ng/ml (0.5-3.6) Troponin I < 0.015 ng/ml (0-0.045) Total Protein 7.9 gm/dl (6.4-8.2) Albumin 4.2 gm/dl (3.4-5.0) Lipase 63 U/L (73-393) Beta-Hydroxybutyric Acid 61.95 mg/dL (0.2-2.81) Influenza Type A Antigen Neg for Influ A (NEG) Influenza Type B Antigen Neg for Influ B (NEG) Bedside Lactic Acid Venous 1.43 mmol/L (0.90-1.70) Test 07/31/16 18:19 07/31/16 18:25 07/31/16 18:30 Arterial Blood pH 7.33 (7.35-7.45) Arterial Blood Partial Pressure CO2 28 mmHg (35-46) Arterial Blood Partial Pressure O2 106 mm/Hg (80-95) Arterial Blood HCO3 14 mmol/L (19-24) Arterial Blood Oxygen Saturation 97.9 % (90-95) Arterial Blood Base Excess -10.1 mEq/L (-9-1.8) Arterial Blood Gas Delivery RA Todd Test POS (POS) Bedside Hemoglobin 13.6 g/dl (12.0-16.0) Bedside Hematocrit 40 % (37-47) Bedside Sodium 127 mEq/L (135-144) Bedside Potassium 4.9 mEq/L (3.3-5.0) Bedside Chloride 97 mEq/L (101-112) Bedside Total CO2 14 mEq/l (24-31) Anion Gap 22.0 mmol/L (16-25) Bedside Blood Urea Nitrogen 25 mg/dl (7-18) Bedside Creatinine 0.6 mg/dl (0.6-1.3) Bedside Glucose (other) 680 mg/dl (70-99) Bedside Ionized Calcium (Jameel) 1.15 mmol/l (1.12-1.32) Urine Color YELLOW Urine Appearance CLEAR (CLEAR) Urine pH 5.0 (4.5-7.5) Urine Specific [place] 1.027 (1.000-1.030) Urine Protein NEG (NEG) Urine Glucose (UA) 3+ (NEG) Urine Ketones 4+ (NEG) Urine Occult Blood TRACE (NEG) Urine Nitrite NEG (NEG) Urine Bilirubin NEG (NEG) Urine Urobilinogen NEG (NEG) Urine Leukocyte Esterase NEG (NEG) Urine WBC (Auto) 1-5 /hpf (0-5) Urine RBC (Auto) 0-4 /hpf (0-4) Urine Hyaline Casts (Auto) 1-5 /lpf (0-5) Urine Epithelial Cells (Auto) 20-30 /lpf (0-5) Urine Bacteria (Auto) 1+ (NEG) Urine Test NEG (NEG) Laboratory results as reviewed by me. Medications Administered Medications (Trade) Dose Ordered Sig/Freddy Route Start Time Stop Time Status Last Admin Dose Admin Sodium Chloride 1,000 ml @ 999 mls/hr Q1H1M STAT IV 07/31/16 17:52 07/31/16 18:52 DC 07/31/16 18:30 999 MLS/HR Sodium Chloride (Nss 1000ml) 1,000 ml @ 999 mls/hr Q1H1M STAT IV 07/31/16 18:38 07/31/16 19:38 DC 07/31/16 19:06 999 MLS/HR ECG Indication: nausea, toxicologic Rate (beats per minute): 103 Rhythm: sinus tachycardia Findings: no acute ischemic change, no ectopy ED Course 1744: The patient was evaluated in room C4. A complete history and physical exam was performed. 1751: Ordered Sodium Chloride 1,000 ml @ 999 mls/hr IV. 1758: Nursing supervisor costuming received a call warning that the patient has a history of bipolar disorder and eating disorder. She has previously skipped insulin doses in an attempt to lose weight. 1837: Ordered Sodium Chloride 1,000 ml @ 999 mls/hr IV. 1917: Discussed the patient's case with Dr. Quiñones ([facility] [place] The patient will be evaluated for further treatment and disposition. 1920: Dr. Quiñones ([facility] [place] is in room. Medical Decision Differential diagnosis include but are not limited to: Infection, dehydration, DKA, hyperglycemia, electrolyte imbalance. 21 yr old female with h/o DMI who has had previous episodes DKA a few years ago. Notes URI with rapid worsening of not feeling well over last 12-24 hours. Dehydrated appearing. BG > 600, Bicarb 14, mild acidosis on abg. Na consistent with hyperglycemia. Given IV fluids to initially convert and defer insulin gtt to hospitalist service. Not septic appearing. No clear evidence of bacterial infection. Stable throughout ED stay. Will need to come in for further work-up and management. Consults Time Called: 1905 Consulting Physician: Dr. Quiñones ([facility] [place]) Returned Call: 1917 Discussed the patient's case with Dr. Quiñones ([facility] [place] The patient will be evaluated for further treatment and disposition. Impression Primary Impression: DKA (diabetic ketoacidoses) Additional Impression: Dehydration Scribe Attestation The scribe's documentation has been prepared under my direction and personally reviewed by me in its entirety. I confirm that the note above accurately reflects all work, treatment, procedures, and medical decision making performed by me. Departure Information Dispostion Being Evaluated By Hospitalist Jorge Huynh D.O.Int.Med. (PCP) Patient Instructions My [facility] Problem Qualifiers Primary Impression: DKA (diabetic ketoacidoses) Diabetes mellitus type: type 1 Diabetes mellitus complication detail: without coma Qualified Codes: E10.10 - Type 1 diabetes mellitus with ketoacidosis without coma
[2016-07-31] MEDS ORDERED: MRLP527 PO (18:16)
[2016-07-31] MEDS ORDERED: VTMD PO (18:16)
[2016-07-31] MEDS ORDERED: ATV5X PO (18:16)
--- NOTE | 2016-07-31 18:23 | DIAGNOSTIC IMAGING REPORT ---
SINGLE VIEW CHEST CLINICAL HISTORY: Generalized weakness. FINDINGS: An AP, portable, upright chest radiograph is compared to study dated 08/27/2015 and correlated with chest CT dated 01/23/2016. The cardiomediastinal silhouette is unremarkable. The lungs and pleural spaces are clear. No pneumothorax is seen. The bony thorax is grossly intact. IMPRESSION: No active disease in the chest. Electronically signed by: Mick Jin M.D. 07/31/2016 6:22 PM Dictated Date/Time: 07/31/2016 6:21 PM
[2016-07-31 18:28] LABS: BASO % 0.4 %; BASO ABS # 0.03 K/uL (0-0.2); COMPLETE YES; EOS % 0.1 %; HEMATOCRIT 38.1 % (37-47); IG% 0.1 %; LYMPH ABS # 1.04 K/uL (1.2-3.4); MEAN CELL VOLUME 90.1 fL (80-100); MEAN CORPUSCULAR HEMOGLOBIN 31.2 pg (25-34); MEAN CORPUSCULAR HGB CONC 34.6 g/dl (32-36); MEAN PLATELET VOLUME 11.4 fL (7.4-10.4); MONO % 7.6 %; NEUT % 78.8 %; PLATELET COUNT 279 K/uL (130-400); RED BLOOD COUNT 4.23 M/uL (4.2-5.4); WHITE BLOOD COUNT 7.99 K/uL (4.8-10.8)
[2016-07-31 18:30] LABS: ARTERIAL BLD GAS O2 SATURATION 97.9 % (90-95); ARTERIAL BLOOD GAS BASE EXCESS -10.1 mEq/L (-9-1.8); ARTERIAL BLOOD GAS HCO3 14 mmol/L (19-24); ARTERIAL BLOOD GAS PO2 106 mm/Hg (80-95); ARTERIAL BLOOD GAS pH 7.33 (7.35-7.45)
[2016-07-31 18:31] LABS: ALLEN TEST POS (POS); O2 ADMINISTRATION RA
[2016-07-31 18:58] LABS: ALKALINE PHOSPHATASE 104 U/L (45-117); ALT/SGPT 25 U/L (12-78); AST/SGOT 28 U/L (15-37); BLOOD UREA NITROGEN 28 mg/dl (7-18); BUN/CREATININE RATIO 25.1 (10-20); CALCIUM 9.3 mg/dl (8.5-10.1); CARBON DIOXIDE 15 mmol/L (21-32); CHLORIDE 93 mmol/L (98-107); GLUCOSE 688 mg/dl (70-99); MAGNESIUM 1.9 mg/dl (1.8-2.4); PHOSPHORUS 3.5 mg/dl (2.5-4.9); POTASSIUM 4.8 mmol/L (3.5-5.1); SODIUM 128 mmol/L (136-145)
[2016-07-31] MEDS ORDERED: BCPILLS PO (18:58)
[2016-07-31 19:01] LABS: URINE APPEARANCE CLEAR (CLEAR); URINE BILIRUBIN NEG (NEG); URINE COLOR YELLOW; URINE EPITHELIAL CELL AUTO 20-30 /lpf (0-5); URINE NITRITE NEG (NEG); URINE SPECIFIC GRAVITY 1.027 (1.000-1.030); UROBILINOGEN NEG (NEG); ZZUR CULT IF INDIC CLEAN CATCH YES
[2016-07-31 19:18] LABS: MANUAL MICROSCOPIC REQUIRED? NO; REVIEW REQ? NO
[2016-07-31] MEDS ORDERED: NovoLIN-R INSULIN PER UNIT CHARGE IV STA (19:28)
[2016-07-31] MEDS ORDERED: GLUCOSE 40% GEL 15 GM TUBE PO PRN (19:30)
[2016-07-31] MEDS ORDERED: ALBUTEROL HFA 8 GM INHALER INH PRN (19:30)
[2016-07-31] MEDS ORDERED: ACETAMINOPHEN 325 MG TAB PO PRN (19:30)
[2016-07-31] MEDS ORDERED: DEXTROSE 50% 50 ML SYR IV PRN (19:30)
[2016-07-31] MEDS ORDERED: GLUCAGON FOR INJ 1 MG VIAL SQ PRN (19:30)
[2016-07-31] MEDS ORDERED: POLYETHYLENE (MIRALAX) 17 GM PACK PO PRN (19:30)
[2016-07-31] MEDS ORDERED: LORAZEPAM 0.5 MG TAB PO PRN (19:30)
[2016-07-31] MEDS ORDERED: NovoLOG INSULIN PUMP SCH (19:30)
[2016-07-31] MEDS ORDERED: ZOLPIDEM TARTRATE 5 MG TAB PO PRN (19:30)
[2016-07-31] MEDS ORDERED: GLUCOSE 10 TABS/TUBE PO PRN (19:30)
[2016-07-31 20:02] LABS: ISTAT CREATININE 0.6 mg/dl (0.6-1.3); ISTAT HEMOGLOBIN 13.6 g/dl (12.0-16.0); ISTAT IONIZED CALCIUM 1.15 mmol/l (1.12-1.32)
[2016-07-31 20:03] LABS: BETA-HYDROXYBUTYRATE 61.95 mg/dL (0.2-2.81)
[2016-07-31] MEDS: NSS + 20MEQ KCL 1000ML 1,000 ML IV SCH (20:29)
[2016-07-31] MEDS: LEVOFLOXACIN / D5W 500 MG in PREMIXED IN D5W 100 ML IV SCH (20:39)
[2016-07-31] MEDS ORDERED: LEVAQUIN 500MG / 100ML D5W ONE (20:40)
[2016-07-31] MEDS ORDERED: INSULIN REGULAR 10 UNITS in SYRINGE 9.9 ML IV SCH (20:45)
[2016-07-31 20:51] LABS: ESTIMATED AVERAGE GLUCOSE 194 mg/dl; HA1C FLAG Normal (Normal)
[2016-07-31] MEDS ORDERED: CALC500C73 PO (21:19)
[2016-07-31] MEDS ORDERED: MULT1CHW44 PO (21:19)
[2016-07-31] MEDS: CALCIUM 600MG + VIT D 400 IU TAB PO SCH (22:07)
[2016-07-31] MEDS: RANITIDINE HCL 150 MG TAB PO SCH (22:08)
--- NOTE | 2016-07-31 22:09 | History and Physical ---
History & Physical Date & Time of Service: Jul 31, 2016 at 22:09 Chief Complaint: Celiac Disease, Chronic Constipation Primary Care Physician: Jorge Mancera D.O.Int.Med. History of Present Illness Source: patient The patient is a 21-year-old female who presents to the emergency department after noting her blood sugars becoming very elevated in the outpatient setting with no obvious signs of infection. 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 Upon arrival in the emergency department today, blood sugar was 688, she felt very dehydrated, and was referred for evaluation for admission. Her main symptoms today are that of generalized weakness. Past Medical/Surgical History Medical Problems: (1) Anxiety Status: Chronic (2) Bipolar 1 disorder Status: Chronic (3) Celiac disease Status: Chronic (4) Type I diabetes mellitus Status: Chronic Surgical Problems: (1) Hx of cataract surgery Status: Resolved Family History Cancer Diabetes mellitus FHx: celiac disease Gallbladder disease Heart disease Hypertension Seizures Social History Smoking Status: Current Every Day Smoker Drug Use: none Marital Status: single Occupational Status: [employer] student Multi-Drug Resistant Organisms History of MDRO: No Allergies Coded Allergies: Cashew (Verified Allergy, Severe, ANAPHYLAXIS, 07/27/16) Gluten (Verified Allergy, Severe, CELIAC'S DISEASE, 07/27/16) Peanut (Verified Allergy, Severe, ANAPHYLAXIS, 07/27/16) Penicillins (Verified Allergy, Severe, ANAPHYLAXIS, 07/27/16) SHELL FISH (Verified Allergy, Severe, ANAPHYLAXIS, 07/27/16) Milk (Unverified Allergy, Unknown, SENSITIVITY, 07/27/16) Oxcarbazepine (Verified Allergy, Unknown, Rash,hives and itchiness., ) Soy Allergy (Unverified Allergy, Unknown, , 07/27/16) Home Medications Scheduled Control Pills ( Control Pills), 1 TAB PO DAILY Calcium Carbonate (Calcium), 2,000 MG PO DAILY Ergocalciferol (Vitamin D), 50,000 INTER.UNIT PO Q2 WEEKS Insulin Aspart (novoLOG INSULIN PUMP ), 1 EA N/A UD Multiple Vitamins W/ Minerals (Airborne Gummies), 2 TABS PO DAILY Ranitidine HCl (Ranitidine HCl), 150-300 MG PO HS Scheduled PRN Albuterol Hfa (Ventolin Hfa), 2 PUFFS INH UD PRN for Prior to Exercise Epinephrine (Epipen), 0.3 MG IM UD PRN for ALLERGIC REACTION Glucagon (Glucagon Emergency Kit), 1 MG INJ UD PRN for HYPOGLYCEMIA PROTOCOL Lorazepam (Lorazepam), 0.5 MG PO DAILY PRN for Anxiety Ondansetron (Ondansetron HCl), 8 MG PO Q8 PRN for Nausea Polyethylene (Polyethylene Glycol 3350), 17 GM PO DAILY PRN for Constipation Review of Systems The patient denies chest pain, palpitations, shortness of breath, cough, lower extremity swelling, vision change, hearing change, sore throat, fevers, chills, sweats, weight change, fatigue, nausea, vomiting, abdominal pain, pelvic pain, blood in urine or stool, dysuria, urinary frequency or urgency, lightheadedness , dizziness, headache, memory loss, rash, abnormal bruising or bleeding, imbalance, focal weakness, numbness or tingling in arms or legs, arthralgias or myalgias, back or neck pain, night sweats, or allergy symptoms. The review of systems is otherwise negative other than for that already noted above, and at least 10 systems have been reviewed. Physical Exam The patient is awake, well-developed and adequately nourished, alert and oriented 3, normocephalic and atraumatic, lying in bed and in no acute distress. HEENT--PERRL, EOMI, mucous membranes and oropharynx dry. Neck--supple, no JVD or bruits, thyroid normal, trachea midline, no adenopathy. Heart--tachycardic and regular, no extra beats, no murmurs, rubs or gallops. Lungs--clear bilaterally with good air movement, no respiratory distress, no accessory muscle use. Abdomen--normal bowel sounds and soft, nontender and nondistended, no hernias or masses, no organomegaly. Extremities--no cyanosis, clubbing or edema. There are good distal pulses b/l. Dermatologic--normal skin turgor, normal color, warm and dry, no abnormal lymph nodes, no rash. Neurologic--cranial nerves II through XII grossly intact, motor and sensory examination normal. Rheumatologic--normal range of motion, nontender, muscles and joints. Psychiatric--normal affect. Diagnostics Diagnostic Radiology Patient Name: MAYA MEYERS Unit Number: [id number] Dictated: 07/31/161820 Transcribed: 07/31/161820 EV Printed Date/Time: [~ rep prt dt]/[~ rep prt tm] [~ rep ct labl] - [~ rep ct ivnm] [facility] [place] [address] Dictated: 07/31/161820 Transcribed: 07/31/161820 EV Printed Date/Time: [~ rep prt dt]/[~ rep prt tm] [~ rep ct labl] - [~ rep ct ivnm] SINGLE VIEW CHEST CLINICAL HISTORY: Generalized weakness. FINDINGS: An AP, portable, upright chest radiograph is compared to study dated 08/27/2015 and correlated with chest CT dated 01/23/2016. The cardiomediastinal silhouette is unremarkable. The lungs and pleural spaces are clear. No pneumothorax is seen. The bony thorax is grossly intact. IMPRESSION: No active disease in the chest. Electronically signed by: Mick Jin M.D. 07/31/2016 6:22 PM Dictated Date/Time: 07/31/2016 6:21 PM The status of this report is Signed. Draft = Not yet reviewed or approved by Radiologist. Signed = Reviewed and approved by Radiologist. <AttendingPhy></AttendingPhy> <FamilyPhy>Jorge Mancera D.O.Int.Med.</ FamilyPhy> <PrimaryPhy>Jorge Mancera D.O.Int.Med.</PrimaryPhy> <UnitNumber> [id number]</UnitNumber> <VisitNumber>[id number]</VisitNumber> <PatientName> MAYA MEYERS</PatientName> <DateOfBirth>1995</DateOfBirth> <Location> [facility]</Location> <ServiceDate>07/31/16</ServiceDate> <MNE>ESINDI</MNE> < OrderingPhy>Chau Nxi M.D.</OrderingPhy> <OrderingPhyMNE>f rep ord dr mne</OrderingPhyMNE> <DictatingPhyMNE>f rep dict dr loja</DictatingPhyMNE> < CCListMNE>f rep ct freedom</CCListMNE> <AdmittingPhyMNE>f pt admit dr loja</ AdmittingPhyMNE> <AttendingPhyMNE>f pt attend dr loja</AttendingPhyMNE> <ConsultingPhyMNE>f pt consult dr loja</ConsultingPhyMNE> <FamilyPhyMNE>f pt fam dr loja</FamilyPhyMNE> <OtherPhyMNE>f pt other dr loja</OtherPhyMNE> < PrimaryPhyMNE>f pt prim care dr loja</PrimaryPhyMNE> <ReferringPhyMNE>f pt referring dr loja</ReferringPhyMNE> Impression Assessment and Plan Diabetic ketoacidosis/type 1 diabetes mellitus--patient's blood sugars were relatively normal 3 days ago, and she has no active signs of infection. I will have her continue to use her insulin pump. We'll give her 10 units of Regular Insulin IV now, place her on normal saline potassium chloride 20 milliequivalents at 250 ML's per hour. Follow blood sugar one hour later was 356. At this point, the patient will get Accu-Cheks every 2 hours, and will be allowed to adjust her blood sugars with her insulin pump. We will continue to watch her for active signs of infection. She did later on reported that she did start to develop some occasional green discharge when she blows her nose. She will therefore be started on levofloxacin 500 mg IV every 24 hours. Pseudohyponatremia--secondary to hyperglycemia. We'll follow serial BMP and magnesium levels. Celiac disease/gluten sensitive enteropathy--her diet should be that of diabetic and gluten free. Asthma--we'll have albuterol HFA available to use when necessary. Next GERD--continue ranitidine at 300 mg by mouth at bedtime. Level of Care Telemetry Advanced Directives Existing Advance Directive: No Existing Living Will: No Existing Power of Tentmaker: No Resuscitation Status FULL RESUSCITATION VTE Prophylaxis Risk Level: Low
[2016-08-01] VITALS (10 sets, daily range): BP systolic 81–113; BP diastolic 46–69; PULSE 98–121; TEMP 36.7–36.9; O2SAT 98–100; BMI 22.3
[2016-08-01] MEDS: NSS + 20MEQ KCL 1000ML 1,000 ML IV SCH ×3 (01:03→08:11)
[2016-08-01] MEDS: INSULIN ASPART 100 UNITS/ML 3 ML PEN SC SCH ×7 (02:22→21:00)
[2016-08-01] MEDS: ONDANSETRON INJ 2 MG/ML 2 ML VIAL IV PRN ×2 (02:22→08:48)
[2016-08-01] MEDS: CALCIUM 600MG + VIT D 400 IU TAB PO SCH ×2 (08:11→21:22)
[2016-08-01] MEDS ORDERED: DKA GOAL RANGE 150-250 mg/dl 1 EA ONE (08:30)
[2016-08-01] MEDS ORDERED: INSULIN IV INFUSION PROTOCOL SCH (08:37)
--- NOTE | 2016-08-01 08:37 | Family Medicine Progress Note ---
Progress Note Date of Service Aug 01, 2016. Subjective Pt evaluation today including: conversation w/ patient, physical exam, chart review, lab review, review of studies, conversation w/ [employer] consultant (Dr Morgan) , review of inpatient medication list Voiding: no voiding problems Patient was drowsy when seen this morning and complaining of abdominal pain and nausea. She has had URI Sx for the last few days with diarrhea and has been unable to control her glucose levels with her insulin pump. She called her [employer] who advise checking her urine ketones which were high therefore recommended going to the ER. She denies possibility of being and urine test was negative. She notes last admission for DKA was 2 years previously. Constitutional: No chills, No fever Respiratory: + cough, No dyspnea at rest, No dyspnea on exertion, No hemoptysis, No shortness of breath, No sputum, No wheezing Cardiovascular: No chest pain Abdomen: + diarrhea, + nausea, + pain, + vomiting, No GI bleeding, No constipation Musculoskeletal: + muscle pain (generlized sensitivity), No joint pain Female : No dysuria, No hematuria, No urinary frequency Psychiatric: + anxiety Heme: No abnormal bleeding/bruising All Other Systems: Reviewed and Negative Medications Current Inpatient Medications Medications (Trade) Dose Ordered Sig/Freddy Route Start Time Stop Time Status Last Admin Dose Admin Potassium Chloride/Sodium Chloride (Nss + 20meq KCl 1000ml) 1,000 ml @ 250 mls/hr Q4H IV 07/31/16 20:15 08/30/16 20:14 08/01/16 08:11 250 MLS/HR Acetaminophen (Tylenol Tab) 650 mg Q4H PRN PO 07/31/16 19:30 08/30/16 19:29 08/01/16 08:10 650 MG Ondansetron HCl 4 mg 4 mg Q6H PRN IV 07/31/16 19:30 08/30/16 19:29 08/01/16 02:22 4 MG Pantoprazole Sodium/Syringe (Protonix Inj/ Syringe) 10 ml @ 5 mls/min DAILY@11 IV 08/01/16 11:00 08/31/16 10:59 Insulin Aspart (novoLOG ASPART) SLIDING SCALE If C... Q2H SC 08/01/16 02:00 08/31/16 01:59 Future Hold 08/01/16 05:58 1.04 UNITS Glucose (Glucose 40% Gel) UD PRN PO 07/31/16 19:30 08/30/16 19:29 Glucose (Glucose Chew Tab) 1 tabs UD PRN PO 07/31/16 19:30 08/30/16 19:29 Dextrose (Dextrose 50% 50ML Syringe) 50 ml UD PRN IV 07/31/16 19:30 08/30/16 19:29 Glucagon (Glucagon Inj) 1 mg UD PRN SQ 07/31/16 19:30 08/30/16 19:29 Albuterol (Ventolin Hfa Inhaler) 2 puffs UD PRN INH 07/31/16 19:30 08/30/16 19:29 Insulin Aspart (novoLOG INSULIN PUMP) 1 ea UD N/A 07/31/16 19:30 08/30/16 19:29 Lorazepam (Ativan Tab) 0.5 mg DAILY PRN PO 07/31/16 19:30 08/30/16 19:29 Ranitidine HCl (zANTac TAB) 300 mg HS PO 07/31/16 21:00 08/30/16 20:59 07/31/16 22:08 300 MG Miscellaneous Information (Order Awaiting Action) 1 ea QS N/A 08/01/16 00:00 08/31/16 00:00 Miscellaneous Information (Order Awaiting Action) 1 ea QS N/A 08/01/16 00:00 08/31/16 00:00 Calcium/Vitamin D (Caltrate Plus Tab) 1 tab BID PO 07/31/16 21:00 08/30/16 20:59 08/01/16 08:11 1 TAB Polyethylene 17 gm 17 gm DAILY PRN PO 07/31/16 19:30 08/30/16 19:29 Levofloxacin/Prmx (Levaquin / D5W/ Premixed D5W) 100 ml @ 100 mls/hr Q24H IV 07/31/16 21:00 08/07/16 20:59 07/31/16 20:39 100 MLS/HR Miscellaneous (Insulin Protocol Dka Goal Range) 1 ea ONE ONCE N/A 08/01/16 08:30 08/01/16 08:31 UNV Insulin Human Regular (Insulin IV Infusion Protocol) 1 ea NOW STAT N/A 08/01/16 08:25 08/01/16 08:26 UNV Objective Vital Signs Date Time Temp Pulse Resp B/P Pulse Ox O2 Delivery O2 Flow Rate FiO2 08/01/16 07:20 36.9 121 22 100/58 98 Room Air 08/01/16 04:00 36.8 104 18 92/56 98 Room Air 08/01/16 04:00 Room Air 08/01/16 02:28 36.7 106 18 81/46 Room Air 08/01/16 01:27 101 20 91/55 100 08/01/16 00:26 105 20 92/53 100 Room Air 07/31/16 21:41 109 07/31/16 21:38 109 20 83/38 100 Room Air 07/31/16 20:30 104 20 93/50 100 Room Air 07/31/16 18:36 109 07/31/16 18:33 109 20 115/66 98 Room Air 07/31/16 17:36 36.9 114 20 106/66 96 Room Air Physical Exam General Appearance: + moderate distress (abdominal pain and nausea) Eyes: normal inspection (pupils equal) Neck: supple, no adenopathy, no JVD Respiratory/Chest: chest non-tender, lungs clear, normal breath sounds, no respiratory distress, no accessory muscle use Cardiovascular: no edema, no murmur, + tachycardia Abdomen: normal bowel sounds, soft Extremities: no pedal edema, no calf tenderness, normal capillary refill Neurologic/Psychiatric: no motor/sensory deficits (moving all 4 limbs), alert, normal mood/affect, oriented x 3 Skin: normal color, warm/dry, no rash Laboratory Results Test 07/31/16 17:52 07/31/16 18:10 07/31/16 18:15 07/31/16 18:18 Creatine Kinase MB Ratio (0-3.0) RDW Standard Deviation 40.5 fL (36.4-46.3) RDW Coefficient of Variation 12.3 % (11.5-14.5) White Blood Count 7.99 K/uL (4.8-10.8) Red Blood Count 4.23 M/uL (4.2-5.4) Hemoglobin 13.2 g/dL (12.0-16.0) Hematocrit 38.1 % (37-47) Mean Corpuscular Volume 90.1 fL (80-100) Mean Corpuscular Hemoglobin 31.2 pg (25-34) Mean Corpuscular Hemoglobin Concent 34.6 g/dl (32-36) Platelet Count 279 K/uL (130-400) Mean Platelet Volume 11.4 fL (7.4-10.4) Neutrophils (%) (Auto) 78.8 % Lymphocytes (%) (Auto) 13.0 % Monocytes (%) (Auto) 7.6 % Eosinophils (%) (Auto) 0.1 % Basophils (%) (Auto) 0.4 % Neutrophils # (Auto) 6.29 K/uL (1.4-6.5) Lymphocytes # (Auto) 1.04 K/uL (1.2-3.4) Monocytes # (Auto) 0.61 K/uL (0.11-0.59) Eosinophils # (Auto) 0.01 K/uL (0-0.5) Basophils # (Auto) 0.03 K/uL (0-0.2) Immature Granulocyte % (Auto) 0.1 % Immature Granulocyte # (Auto) 0.01 K/uL (0.00-0.02) Est Creatinine Clear Calc Drug Dose 69.3 ml/min Estimated Average Glucose 194 mg/dl Hemoglobin A1c 8.4 % (4.5-5.6) Creatine Kinase MB < 0.5 ng/ml (0.5-3.6) Troponin I < 0.015 ng/ml (0-0.045) Lipase 63 U/L (73-393) Beta-Hydroxybutyric Acid 61.95 mg/dL (0.2-2.81) Influenza Type A Antigen Neg for Influ A (NEG) Influenza Type B Antigen Neg for Influ B (NEG) Bedside Lactic Acid Venous 1.43 mmol/L (0.90-1.70) Test 07/31/16 18:19 07/31/16 18:25 07/31/16 18:30 08/01/16 04:44 Arterial Blood pH 7.33 (7.35-7.45) Arterial Blood Partial Pressure CO2 28 mmHg (35-46) Arterial Blood Partial Pressure O2 106 mm/Hg (80-95) Arterial Blood HCO3 14 mmol/L (19-24) Arterial Blood Oxygen Saturation 97.9 % (90-95) Arterial Blood Base Excess -10.1 mEq/L (-9-1.8) Arterial Blood Gas Delivery RA Todd Test POS (POS) Bedside Hemoglobin 13.6 g/dl (12.0-16.0) Bedside Hematocrit 40 % (37-47) Bedside Sodium 127 mEq/L (135-144) Bedside Potassium 4.9 mEq/L (3.3-5.0) Bedside Chloride 97 mEq/L (101-112) Bedside Total CO2 14 mEq/l (24-31) Bedside Blood Urea Nitrogen 25 mg/dl (7-18) Bedside Creatinine 0.6 mg/dl (0.6-1.3) Bedside Glucose (other) 680 mg/dl (70-99) Bedside Ionized Calcium (Jameel) 1.15 mmol/l (1.12-1.32) Urine Color YELLOW Urine Appearance CLEAR (CLEAR) Urine pH 5.0 (4.5-7.5) Urine Specific [place] 1.027 (1.000-1.030) Urine Protein NEG (NEG) Urine Glucose (UA) 3+ (NEG) Urine Ketones 4+ (NEG) Urine Occult Blood TRACE (NEG) Urine Nitrite NEG (NEG) Urine Bilirubin NEG (NEG) Urine Urobilinogen NEG (NEG) Urine Leukocyte Esterase NEG (NEG) Urine WBC (Auto) 1-5 /hpf (0-5) Urine RBC (Auto) 0-4 /hpf (0-4) Urine Hyaline Casts (Auto) 1-5 /lpf (0-5) Urine Epithelial Cells (Auto) 20-30 /lpf (0-5) Urine Bacteria (Auto) 1+ (NEG) Urine Test NEG (NEG) Test 08/01/16 07:37 08/01/16 08:24 08/01/16 08:29 Bedside Glucose 364 mg/dl (70-90) Assessment and Plan 21 yo female with T1DM (insulin pump) presented to the ER with DKA. Glucose 688. beta hydroxybutyric acid 61.95 HbA1C 8.8. pH 7.33. She has had recent URI with cough, nasal congestion + gastroenteritis symptoms with diarrhea possibly the cause of this. Patient was assessed around 8:20am at which point she was having abdominal pain with nausea and reports she is unable to control her levels with the insulin pump. She was awake and alert but slightly drowsy. She was feeling quite dry. Stat VBG and BMP with insulin IV sliding scale ordered. NSS + KCl 20 meq 250 MLS /HR running at that time. I continued on my rounds and it unfortunately appeared she refused these interventions because she was feeling unwell. By the time I returned with my attending around 10:10am she had eventually had her labs and repeat VBG pH was 7.03. She had not yet started the insulin sliding scale at this time. NSS bolus given. Additional IV site requested. Potassium from BMP came back at 8.3. EKG stat showed no hyperkalemic changes. Calcium gluconate 10 ml 10 % stat. Insulin second bolus of 10 units stat ordered. Patient was discussed with [employer] Dr Morgan given worsening DKA and hyperkalemia and advised transfer to ICU. Diabetic ketoacidosis / Type 1 diabetes - consult tag meter operator - Continue insulin sliding scale - NSS bolus, further fluids as per - no need for bicarb currently but will closely follow pH - suspect on the IV insulin her anion gap will close and can be transitioned back to her insulin pump tomorrow Hyperkalemia - 8.3 - calcium gluconate given for cardiac protection - Insulin IV bolus 10 units, continue insulin IV drip - BMP stat ordered, will be transferring to ICU for Q2H checks URI, gastroenteritis, leukocytosis - monitor for watery stool, leukocytosis on admission likely stress related but covered for pneumonia with Levaquin, continue currently due to critical illness , can probably by stopped if patient has rapid recovery and if BC negative - Follow up blood cultures Non acute issues; Hx celiac disease - gluten free diet when back on diet GERD - on ranitidine at home but suspect unable to take PO meds currently, continue IV pantoprazole VTE Prophylaxis - Heparin 5000 units Q8H SQ Code - Full Disposition - transfer to ICU History Resident Physician Supervision Note: I was present with Dr. Gould during the history and exam. I discussed the case with the resident and agree with the findings and plan as documented in the note. Any exceptions or clarifications are listed here. Pt seen and examined at bedside. Presently, feels malaise and fatigue, as well as diffuse aching abdominal pain and nausea without vomiting since admission. The patient had initially been refusing any further intervention beyond IVF ( 20meq K+) including lab studies and insulin drip. Upon arrival, intervention and completion of lab studies, the patient's K+ was 8.2. Her clinical picture was unchanged. An EKG was reviewed. CaGluc and insulin bolus atop the drip was instituted and an tag meter operator consult was called at that time for close monitoring and glucose control. General Appearance: WD/WN, mild distress Eye Exam: bilateral eye EOMI, bilateral eye PERRL Neck: non-tender, full range of motion, supple Respiratory: chest non-tender, lungs clear, normal breath sounds, no respiratory distress Cardiovascular: normal peripheral pulses, regular rate, rhythm, no edema, no murmur Gastrointestinal: normal bowel sounds, no organomegaly, guarding, tenderness ( diffuse moderate) Neurologic/Psychiatric: immigration officer II-XII nml as tested, no motor/sensory deficits, alert, normal mood/affect, oriented x 3 Skin Characteristics: normal color, warm/dry Assessment/Plan 21 y/o female h/o type 1 DM presents with DKA DKA in the setting of type 1 DM, uncontrolled w/ gastroparesis - tag meter operator consult, input appreciated - insulin drip per protocol - BMP q2hrs - will transition when acidosis/gap resolves and glucose improves Hyperkalemia - stat CaGluc and insulin bolus as noted above, s/p 2L NS bolus - aggressive hydration w/ IVF - BMP q2h - continue insulin drip Anxiety - ativan PRN Resident Tracking Resident Involvement: Resident Care Provided Care Provided: Adult Hospital Medicine
[2016-08-01 09:16] LABS: VEN BLOOD GAS BASE EXCESS -21.6 mmol/L
[2016-08-01 09:25] LABS: MAGNESIUM 1.8 mg/dl (1.8-2.4); PHOSPHORUS 2.7 mg/dl (2.5-4.9)
[2016-08-01] MEDS ORDERED: SODIUM CHLORIDE 0.9% 1000ML 1,000 ML IV STA (10:17)
[2016-08-01] MEDS ORDERED: INSULIN HUMAN REGULAR IV BOLUS 1.5 UNIT in SYRINGE 0 ML IV ONE (10:20)
[2016-08-01 10:30] LABS: HEMATOCRIT 38.8 % (37-47); MEAN CELL VOLUME 91.1 fL (80-100); MEAN CORPUSCULAR HEMOGLOBIN 30.8 pg (25-34); MEAN CORPUSCULAR HGB CONC 33.8 g/dl (32-36); MEAN PLATELET VOLUME 11.1 fL (7.4-10.4); PLATELET COUNT 380 K/uL (130-400); RED BLOOD COUNT 4.26 M/uL (4.2-5.4); WHITE BLOOD COUNT 22.39 K/uL (4.8-10.8)
[2016-08-01] MEDS ORDERED: MODERATE STRESS LEVEL ONE (10:30)
[2016-08-01 10:34] LABS: BASO % 0.1 %; BASO ABS # 0.03 K/uL (0-0.2); COMPLETE YES; IG% 0.5 %; LYMPH ABS # 0.67 K/uL (1.2-3.4); MONO % 4.6 %; NEUT % 91.8 %
[2016-08-01] MEDS: INSULIN REGULAR 250 UNITS in SODIUM CHLORIDE 0.9% 250ML 250 ML IV SCH (10:42)
[2016-08-01 10:47] LABS: BUN/CREATININE RATIO 16.5 (10-20); CALCIUM 8.6 mg/dl (8.5-10.1); CREATININE 1.1 mg/dl (0.60-1.20); MAGNESIUM 1.7 mg/dl (1.8-2.4)
[2016-08-01 10:48] LABS: POTASSIUM 8.2 mmol/L (3.5-5.1)
[2016-08-01] MEDS ORDERED: PANTOprazole INJ 40 MG in SYRINGE 0 ML IV SCH (11:00)
[2016-08-01] MEDS ORDERED: LACTATED RINGER'S 1000ML 1,000 ML IV SCH (11:00)
[2016-08-01] MEDS ORDERED: CALCIUM GLUCONATE 10% 1,000 MG in SODIUM CHLORIDE 0.9% 50ML 50 ML IV ONE (11:10)
[2016-08-01] MEDS ORDERED: NURSING VERBAL MED ORDER STA (11:12)
[2016-08-01] MEDS ORDERED: INSULIN HUMAN REGULAR PER UNIT 10 UNITS in SYRINGE 9.9 ML IV ONE (11:20)
[2016-08-01 11:36] LABS: BETA-HYDROXYBUTYRATE 78.36 mg/dL (0.2-2.81)
[2016-08-01 11:55] LABS: BLOOD UREA NITROGEN 18 mg/dl (7-18); BUN/CREATININE RATIO 20.8 (10-20); CALCIUM 7.6 mg/dl (8.5-10.1); CARBON DIOXIDE < 5 mmol/L (21-32); CHLORIDE 115 mmol/L (98-107); CREATININE 0.84 mg/dl (0.60-1.20); GLUCOSE 373 mg/dl (70-99); POTASSIUM 7.1 mmol/L (3.5-5.1); SODIUM 136 mmol/L (136-145)
[2016-08-01] MEDS ORDERED: NURSING VERBAL MED ORDER ONE ×3 (12:15→19:15)
[2016-08-01] MEDS ORDERED: SODIUM CHLORIDE 0.45% 1000ML 1,000 ML IV SCH (14:15)
[2016-08-01] MEDS ORDERED: D5W AND 1/2NSS 1,000 ML IV SCH (16:30)
[2016-08-01 16:36] LABS: VEN BLD GAS O2 SATURATION 67.7 %; VEN BLOOD GAS BASE EXCESS -19.4 mmol/L
[2016-08-01] MEDS: D5W AND 1/2NSS 1,000 ML IV SCH ×3 (16:55→21:28)
[2016-08-01 17:10] LABS: BUN/CREATININE RATIO 17.8 (10-20); CALCIUM 8.4 mg/dl (8.5-10.1); CREATININE 0.88 mg/dl (0.60-1.20); POTASSIUM 6.1 mmol/L (3.5-5.1)
[2016-08-01 17:18] LABS: BUN/CREATININE RATIO 15.4 (10-20); CALCIUM 8.4 mg/dl (8.5-10.1); CREATININE 0.94 mg/dl (0.60-1.20)
[2016-08-01 17:30] LABS: MAGNESIUM 1.7 mg/dl (1.8-2.4); PHOSPHORUS 2.8 mg/dl (2.5-4.9); POTASSIUM 6.4 mmol/L (3.5-5.1)
[2016-08-01 18:16] LABS: VEN BLD GAS O2 SATURATION 76.3 %; VEN BLOOD GAS BASE EXCESS -16.8 mmol/L
[2016-08-01 18:30] LABS: BUN/CREATININE RATIO 12.9 (10-20); CALCIUM 8.2 mg/dl (8.5-10.1); CREATININE 0.95 mg/dl (0.60-1.20); MAGNESIUM 1.7 mg/dl (1.8-2.4); PHOSPHORUS 2.6 mg/dl (2.5-4.9); POTASSIUM 5.6 mmol/L (3.5-5.1)
--- NOTE | 2016-08-01 20:07 | Critical Care Consultation ---
Critical Care Consultation Date of Consultation: Aug 01, 2016. Attending Physician: Edwin Rocha MD Reason for Consultation: Diabetic ketoacidosis History of Present Illness Patient is a pleasant 21-year-old female, with a background history of type 1 diabetes on an insulin pump who was admitted to the emergency department last night due to worsening URI symptoms. Since his ability going on 3 days prior to arrival. She notes symptoms such as cough, nasal congestion, sore throat and poor appetite. She denies having measured fevers, but does say that she felt warm on occasion. She states that her appetite and been quite poor. She denies shortness of breath, chest pain, palpitations, syncope. She denied abdominal pain or vomiting, but does state that she did have some low-grade nausea initially that did seem to have progressed over the 3 days. She stated that she had mild diarrhea for that same duration. He denies new urinary symptoms. She did continue to use her insulin pump during her acute illness and states that she was giving herself bolus doses of insulin during meals. However on the day of arrival her symptoms progressively got worse and on one occasion she checked her sugar and it read as 'high'. She did call the endocrinology educator at [facility], who instructed her to check ketones. Ketones came back as ' large', and she was told medially to go to the emergency department for further evaluation. On arrival in the emergency room she was treated with 2 L normal saline bolus and was diagnosed with DKA. Blood sugar was greater than 600 and she had an elevated anion gap with positive beta hydroxybutyrate. On admission she was treated with 10 units of regular insulin which brought her blood sugars to under 400. She notes that at this point she was told she go back to her insulin pump to manage her blood sugars and to bring in further down. Once being put back on her pump however, she is unable she was unable to bring her blood sugars down adequately using her own and throat the overnight period, she reports feeling increasing nausea, dizziness, and right-sided abdominal pain. At this point hospitalist service re-bolused her with 1 L of lactated Ringer's and 1 L normal saline. She was transferred to the ICU for further management She notes that this is her 3rd admission for DKA in her lifetime. Last admission was 2 years ago. She currently follows in Dr. Schwab's clinic. Of note she does admit to abusing laxatives in an attempt to lose weight. Does state that stressful situations bring on the urge to take laxatives. She notes that she does feel overweight. As recently admitted for laxative overdose. Patient states that she's had psychosocial stressors in her life recently, though failed to elaborate specific cause. Past Medical/Surgical History - Type 1 diabetes - Diabetic gastroparesis - Osteopenia - Vitamin D deficiency - Focal nodular hyperplasia of the liver - Amblyopia - Reactive airway disease Surgical history - Bilateral cataract with scar tissue resection - Surgical correction of exotropia Family History Cancer Diabetes mellitus FHx: celiac disease Gallbladder disease Heart disease Hypertension Seizures Social History Smoking Status: Former Smoker Drug Use: none Marital Status: single Housing Status: lives with roommate Occupation Status: student Allergies Coded Allergies: Cashew (Verified Allergy, Severe, ANAPHYLAXIS, 07/27/16) Gluten (Verified Allergy, Severe, CELIAC'S DISEASE, 07/27/16) Peanut (Verified Allergy, Severe, ANAPHYLAXIS, 07/27/16) Penicillins (Verified Allergy, Severe, ANAPHYLAXIS, 07/27/16) SHELL FISH (Verified Allergy, Severe, ANAPHYLAXIS, 07/27/16) Milk (Unverified Allergy, Unknown, SENSITIVITY, 07/27/16) Oxcarbazepine (Verified Allergy, Unknown, Rash,hives and itchiness., ) Soy Allergy (Unverified Allergy, Unknown, , 07/27/16) Home Medications Scheduled Control Pills ( Control Pills), 1 TAB PO DAILY Calcium Carbonate (Calcium), 2,000 MG PO DAILY Ergocalciferol (Vitamin D), 50,000 INTER.UNIT PO Q2 WEEKS Insulin Aspart (novoLOG INSULIN PUMP ), 1 EA N/A UD Multiple Vitamins W/ Minerals (Airborne Gummies), 2 TABS PO DAILY Ranitidine HCl (Ranitidine HCl), 150-300 MG PO HS Scheduled PRN Albuterol Hfa (Ventolin Hfa), 2 PUFFS INH UD PRN for Prior to Exercise Epinephrine (Epipen), 0.3 MG IM UD PRN for ALLERGIC REACTION Glucagon (Glucagon Emergency Kit), 1 MG INJ UD PRN for HYPOGLYCEMIA PROTOCOL Lorazepam (Lorazepam), 0.5 MG PO DAILY PRN for Anxiety Ondansetron (Ondansetron HCl), 8 MG PO Q8 PRN for Nausea Polyethylene (Polyethylene Glycol 3350), 17 GM PO DAILY PRN for Constipation Current Inpatient Medications Current Inpatient Medications Medications (Trade) Dose Ordered Sig/Freddy Route Start Time Stop Time Status Last Admin Dose Admin Acetaminophen (Tylenol Tab) 650 mg Q4H PRN PO 07/31/16 19:30 08/30/16 19:29 08/01/16 08:10 650 MG Ondansetron HCl 4 mg 4 mg Q6H PRN IV 07/31/16 19:30 08/30/16 19:29 08/01/16 08:48 4 MG Pantoprazole Sodium/Syringe (Protonix Inj/ Syringe) 10 ml @ 5 mls/min DAILY@11 IV 08/01/16 11:00 08/31/16 10:59 08/01/16 11:57 5 MLS/MIN Insulin Aspart (novoLOG ASPART) SLIDING SCALE If C... Q2H SC 08/01/16 02:00 08/31/16 01:59 Future Hold 08/01/16 05:58 1.04 UNITS Glucose (Glucose 40% Gel) UD PRN PO 07/31/16 19:30 08/30/16 19:29 Glucose (Glucose Chew Tab) 1 tabs UD PRN PO 07/31/16 19:30 08/30/16 19:29 Dextrose (Dextrose 50% 50ML Syringe) 50 ml UD PRN IV 07/31/16 19:30 08/30/16 19:29 Glucagon (Glucagon Inj) 1 mg UD PRN SQ 07/31/16 19:30 08/30/16 19:29 Albuterol (Ventolin Hfa Inhaler) 2 puffs UD PRN INH 07/31/16 19:30 08/30/16 19:29 Insulin Aspart (novoLOG INSULIN PUMP) 1 ea UD N/A 07/31/16 19:30 08/30/16 19:29 Future Hold Lorazepam (Ativan Tab) 0.5 mg DAILY PRN PO 07/31/16 19:30 08/30/16 19:29 Ranitidine HCl (zANTac TAB) 300 mg HS PO 07/31/16 21:00 08/30/16 20:59 07/31/16 22:08 300 MG Miscellaneous Information (Order Awaiting Action) 1 ea QS N/A 08/01/16 00:00 08/31/16 00:00 Miscellaneous Information (Order Awaiting Action) 1 ea QS N/A 08/01/16 00:00 08/31/16 00:00 Calcium/Vitamin D (Caltrate Plus Tab) 1 tab BID PO 07/31/16 21:00 08/30/16 20:59 08/01/16 08:11 1 TAB Polyethylene 17 gm 17 gm DAILY PRN PO 07/31/16 19:30 08/30/16 19:29 Levofloxacin 500 mg/Prmx 100 ml @ 100 mls/hr Q24H IV 07/31/16 21:00 08/07/16 20:59 07/31/16 20:39 100 MLS/HR Insulin Human Regular/Sodium Chloride (novoLIN-R/Nss 250ml) 252.5 ml @ 0 mls/hr DAILY@1130 IV 08/01/16 10:30 08/31/16 10:29 08/01/16 10:42 1.4 MLS/HR Insulin Aspart SLIDING SCALE PCHS SC 08/01/16 12:53 08/31/16 12:59 Dextrose/Sodium Chloride (D5W And 1/2nss) 1,000 ml @ 150 mls/hr Q6H40M IV 08/01/16 16:45 08/31/16 16:44 08/01/16 16:55 150 MLS/HR Review of Systems Temp review systems is otherwise negative unless stated above Physical Exam Date Time Temp Pulse Resp B/P Pulse Ox O2 Delivery O2 Flow Rate FiO2 08/01/16 18:17 98 20 88/50 100 Room Air 08/01/16 16:00 Room Air 08/01/16 16:00 108 20 96/57 100 Room Air 08/01/16 14:03 101 24 94/55 100 Room Air 08/01/16 12:00 36.8 118 24 113/69 100 Room Air 08/01/16 08:00 Room Air 08/01/16 07:20 36.9 121 22 100/58 98 Room Air 08/01/16 04:00 36.8 104 18 92/56 98 Room Air 08/01/16 04:00 Room Air 08/01/16 02:28 36.7 106 18 81/46 Room Air 08/01/16 01:27 101 20 91/55 100 08/01/16 00:26 105 20 92/53 100 Room Air 07/31/16 21:41 109 07/31/16 21:38 109 20 83/38 100 Room Air 07/31/16 20:30 104 20 93/50 100 Room Air General Appearance: mild distress Head: normocephalic, atraumatic Eyes: PERRLA, EOMI ENT: normal ear exam, normal nasal exam, normal dental exam, other (dry mucous membranes) Neck: normal range of motion, no tenderness, supple, no lymphadenopathy, no meningismus, no nuchal rigidity Respiratory: breath sounds normal, clear to auscultation, no respiratory distress Cardiovasular: regular rate/rhythm, normal S1S2, no murmur, no gallop, no JVD, other (tachycardic, rate 100-110) Abdomen: non tender, normal bowel sounds, no rebound Upper Extremities: no edema, no deformity Lower Extremities: no edema, no deformity Neuro: alert, oriented x 3, normal speech Psychiatric: normal affect Laboratory Results Last 24 Hours Test 07/31/16 21:36 08/01/16 00:17 08/01/16 01:57 08/01/16 04:00 Bedside Glucose 365 mg/dl 279 mg/dl 366 mg/dl 333 mg/dl Test 08/01/16 05:50 08/01/16 07:37 08/01/16 08:52 08/01/16 09:49 Bedside Glucose 326 mg/dl 364 mg/dl 419 mg/dl Venous Blood pH 7.06 Venous Blood Partial Pressure CO2 26 mmHg Venous Blood Partial Pressure O2 39 mmHg Venous Blood HCO3 7 mmol/L Venous Blood Oxygen Saturation 64.0 % Venous Blood Base Excess -21.6 mmol/L Phosphorus Level 2.7 mg/dl Magnesium Level 1.8 mg/dl Test 08/01/16 09:55 08/01/16 11:25 08/01/16 11:53 08/01/16 13:00 White Blood Count 22.39 K/uL Red Blood Count 4.26 M/uL Hemoglobin 13.1 g/dL Hematocrit 38.8 % Mean Corpuscular Volume 91.1 fL Mean Corpuscular Hemoglobin 30.8 pg Mean Corpuscular Hemoglobin Concent 33.8 g/dl Platelet Count 380 K/uL Mean Platelet Volume 11.1 fL Neutrophils (%) (Auto) 91.8 % Lymphocytes (%) (Auto) 3.0 % Monocytes (%) (Auto) 4.6 % Eosinophils (%) (Auto) 0.0 % Basophils (%) (Auto) 0.1 % Neutrophils # (Auto) 20.54 K/uL Lymphocytes # (Auto) 0.67 K/uL Monocytes # (Auto) 1.03 K/uL Eosinophils # (Auto) 0.00 K/uL Basophils # (Auto) 0.03 K/uL RDW Standard Deviation 40.5 fL RDW Coefficient of Variation 12.1 % Immature Granulocyte % (Auto) 0.5 % Immature Granulocyte # (Auto) 0.12 K/uL Sodium Level 134 mmol/L 136 mmol/L Potassium Level 8.2 mmol/L 7.1 mmol/L Chloride Level 110 mmol/L 115 mmol/L Carbon Dioxide Level 6 mmol/L < 5 mmol/L Anion Gap 18.0 mmol/L 17.0 mmol/L Blood Urea Nitrogen 18 mg/dl 18 mg/dl Creatinine 1.10 mg/dl 0.84 mg/dl Est Creatinine Clear Calc Drug Dose 69.3 ml/min 90.8 ml/min Estimated GFR () 82.5 114.3 Estimated GFR (Non- 71.2 98.7 BUN/Creatinine Ratio 16.5 20.8 Random Glucose 434 mg/dl 373 mg/dl Calcium Level 8.6 mg/dl 7.6 mg/dl Magnesium Level 1.7 mg/dl Total Bilirubin 1.4 mg/dl Direct Bilirubin 0.2 mg/dl Aspartate Amino Transf (AST/SGOT) 24 U/L Alanine Aminotransferase (ALT/SGPT) 23 U/L Alkaline Phosphatase 90 U/L Total Protein 7.1 gm/dl Albumin 3.8 gm/dl Beta-Hydroxybutyric Acid 78.36 mg/dL 73.00 mg/dL Venous Blood pH 7.00 Bedside Glucose 352 mg/dl 292 mg/dl Test 08/01/16 14:11 08/01/16 14:50 08/01/16 15:23 08/01/16 16:14 Bedside Glucose 248 mg/dl 201 mg/dl 206 mg/dl Venous Blood pH 7.10 Sodium Level 137 mmol/L Potassium Level 6.1 mmol/L Chloride Level 115 mmol/L Carbon Dioxide Level 7 mmol/L Anion Gap 15.0 mmol/L Blood Urea Nitrogen 16 mg/dl Creatinine 0.88 mg/dl Est Creatinine Clear Calc Drug Dose 86.6 ml/min Estimated GFR () 108.1 Estimated GFR (Non- 93.3 BUN/Creatinine Ratio 17.8 Random Glucose 249 mg/dl Calcium Level 8.4 mg/dl Test 08/01/16 16:19 08/01/16 17:05 08/01/16 17:55 08/01/16 18:01 Venous Blood pH 7.12 7.20 Venous Blood Partial Pressure CO2 27 mmHg 25 mmHg Venous Blood Partial Pressure O2 36 mmHg 41 mmHg Venous Blood HCO3 8 mmol/L 10 mmol/L Venous Blood Oxygen Saturation 67.7 % 76.3 % Venous Blood Base Excess -19.4 mmol/L -16.8 mmol/L Sodium Level 137 mmol/L 137 mmol/L Potassium Level 6.4 mmol/L 5.6 mmol/L Chloride Level 114 mmol/L 114 mmol/L Carbon Dioxide Level 8 mmol/L 10 mmol/L Anion Gap 15.0 mmol/L 13.0 mmol/L Blood Urea Nitrogen 15 mg/dl 12 mg/dl Creatinine 0.94 mg/dl 0.95 mg/dl Est Creatinine Clear Calc Drug Dose 81.1 ml/min 80.3 ml/min Estimated GFR () 99.8 98.5 Estimated GFR (Non- 86.1 85.0 BUN/Creatinine Ratio 15.4 12.9 Random Glucose 227 mg/dl 247 mg/dl Calcium Level 8.4 mg/dl 8.2 mg/dl Phosphorus Level 2.8 mg/dl 2.6 mg/dl Magnesium Level 1.7 mg/dl 1.7 mg/dl Bedside Glucose 220 mg/dl 229 mg/dl Diagnostic Results SINGLE VIEW CHEST CLINICAL HISTORY: Generalized weakness. FINDINGS: An AP, portable, upright chest radiograph is compared to study dated 08/27/2015 and correlated with chest CT dated 01/23/2016. The cardiomediastinal silhouette is unremarkable. The lungs and pleural spaces are clear. No pneumothorax is seen. The bony thorax is grossly intact. IMPRESSION: No active disease in the chest. Electronically signed by: Mick Jin M.D. 07/31/2016 6:22 PM Dictated Date/Time: 07/31/2016 6:21 PM Assessment & Plan The 21-year-old female with a history of type 1 diabetes, presents with an acute DKA. The patient unfortunately was not able to control DKA by use of her pump alone. As such, emergent decision was made up on the floor this morning to start an insulin infusion to transfer the patient down to the intensive care unit for DKA management and hemodynamic monitoring. She does note history of laxative overuse for the purposes of losing weight. Insulin also has a tendency to promote weight gain and I suspect with her at this may put her at risk of not taking her insulin appropriately. One might consider the possibility of an underlying infection given leukocytosis and tachycardia on arrival. However review of the UA, chest x-ray were both normal , so I think an infective etiology to her presentation is less likely. Her problem list includes: - Diabetic ketoacidosis - Type 1 diabetes mellitus, uncontrolled - Severe hyperkalemia - Celiac disease - Gastroparesis - Vitamin D deficiency - Osteopenia - History of laxative abuse Our plan for her is follows NEUROLOGICAL - GCS 15 - CAM-ICU negative - Continue to monitor with serial examinations daily - Anxiety Lorazepam 0.5 mg IV every 4 when necessary CARDIOVASCULAR - MAP ranging 65-70; patient does have some borderline blood pressures roughly 90/60's but holding steady - Patient is tachycardic with a rate 100-110 - This is likely secondary to intravascular volume depletion - Patient did receive 1 L of lactated Ringer's and 1 L of normal saline up on the floors prior to arrival in the ICU - The patient is currently on half-normal saline with D5 at a rate of 250 ml/ hr RESPIRATORY - Respiratory rate of 20-24; patient saturated 100% on room air - History of reactive airway disease No wheezing on clinical exam Continue albuterol inhaler when necessary for shortness of breath or wheezing GASTROINTESTINAL - Diet: Nothing by mouth - GI prophylaxis: Hold at this time, would anticipate being able to start feeding the patient within the next 24 hours History of celiac disease - 2 with gluten-free diet when patient is able to tolerate by mouth Focal nodular hyperplasia - Per patient this is monitored elsewhere History of laxative abuse - Patient currently has polyethylene glycol ordered; cautious use only as indicated for constipation GERD - Resume Zantac when patient can tolerate by mouth RENAL/GENITOURINARY/ENDOCRINE Type I Diabetes Mellitus - She does note taking excess amounts of laxatives for the purpose of weight loss and I suspect this may have been a trigger for her DKA presentation - HbA1c 8.4 reflecting lack of control - Patient received 1 L lactated Ringer's and 1 L of normal saline this morning, for a total of 2 L of fluids. Patient does remain tachycardic with borderline blood pressure. Likely needs further fluid resuscitation - Patient currently on insulin infusion if concurrent 0.45% NSS @ @250 ML per hour to provide additional fluid - Most recent labs NA 137, K3.6 chloride 114, bicarbonate 10, anion gap 13, BUN 12, creatinine 0.95, BSG 247 - Goals to allow for bridging with subcutaneous regimen for pump - Serum blood sugar less than 200; and on gap less than 12; bicarbonate greater than 15; venous pH 7.3 - Patient currently not meeting indications - Plan this evening will be to continue insulin infusion and IV fluids - Continue with serial labs: BMP, mag , phosphorus, VBG, hourly Accu-Cheks - Will not start insulin pump tonight; weight until morning; when it can be done and ended directly observe setting with daytime team Hyperkalemia - Noted this morning to be 8.2 - AGC reviewed, there is no evidence of acute EKG changes secondary to hyperkalemia - She was treated with calcium gluconate and 10 units of regular insulin IV - Improving, last BMP shows potassium is now 5 HEME/INFECTIOUS DISEASE - WBC 22 - Hemoglobin 13; hematocrit 38 - Platelets 380 - Patient is noted to have a leukocytosis with tachycardia; meets SIRS criteria - However, there is no clear nidus for infection, UA is negative, chest x-ray is negative for infection, lactate is within normal limits - I don't seen an indication to treat with antibiotics given lack of apparent nidus; leukocytosis likely reflects a stress reaction to DKA - Blood cultures are pending and we'll reassess daily; will check a pro- calcitonin DVT PROPHYLAXIS - Patient has normal renal function at this time though is in the window of being at risk given ongoing DKA - Heparin 5000 3 times a day CODE STATUS - Level I Code DISPOSITION - Remain in ICU overnight; will attempt to bridge with subcutaneous/pump tomorrow - Reassess need for OT and PT orders as clinical status improves Resident Physician Supervision Note: Dr. Cueva was resident physician during care of patient. I separately evaluated patient and did history and exam. I discussed the case with the resident and generally agree with the findings and plan. Type I diabetic with gastroenteritis presenting with worsening DKA. Pump was not able to provide adequate insulin coverage requires volume expansion. Insulin should also treat her severe hyperkalemia. I have personally spent 35 minutes of critical care time in the direct management of this patient. This is a life/limb threatening event. This includes time spent evaluating patient, direct bedside care, chart review, placing orders, interpretation of diagnostic studies, discussion with consultants, patient, and family members, as well as other required patient management activities. This time is exclusive of all separately billable procedures, and teaching time and separate from and in addition to any other critical care service time. Documented By: Darian Morgan DO Procedure Note Procedure Date Aug 01, 2016. Procedure Description Procedure Name: Limited right upper quadrant ultrasound Procedure time out: side/site verified, patient ID confirmed, correct procedure Consent obtained: verbal Time of procedure: 14:00 Performed by: attending Indications: diagnostic (right upper quadrant pain concerning for acute cholecystitis) Contraindications: none Description: Limited right upper quadrant ultrasound revealed a 3.1 cm nodular mass adjacent to the gallbladder. The patient did not exhibit a Benedict's sign the gallbladder wall was not thickened, the distance was approximately 0.14 cm. There was no pericholecystic fluid. Impression: Normal Limited right upper quadrant ultrasound without evidence of acute cholecystitis. Complications: none Patient tolerated procedure: well Post-procedure vital signs: reviewed and stable
[2016-08-01 20:09] LABS: VEN BLD GAS O2 SATURATION 86.3 %; VEN BLOOD GAS BASE EXCESS -14.1 mmol/L
[2016-08-01] MEDS ORDERED: MAGNESIUM SULFATE 1GM / D5W 1 GM in PREMIXED IN D5W 100 ML IV STA (20:25)
[2016-08-01 20:44] LABS: BUN/CREATININE RATIO 11.6 (10-20); CALCIUM 7.9 mg/dl (8.5-10.1); CREATININE 0.94 mg/dl (0.60-1.20); MAGNESIUM 1.5 mg/dl (1.8-2.4); PHOSPHORUS 2.4 mg/dl (2.5-4.9); POTASSIUM 5.2 mmol/L (3.5-5.1)
[2016-08-01] MEDS: LEVOFLOXACIN / D5W 500 MG in PREMIXED IN D5W 100 ML IV SCH (21:21)
[2016-08-01] MEDS: RANITIDINE HCL 150 MG TAB PO SCH (21:23)
[2016-08-01 22:28] LABS: VEN BLD GAS O2 SATURATION 77.4 %; VEN BLOOD GAS BASE EXCESS -12.8 mmol/L
[2016-08-01 22:31] LABS: INR 1.3 (0.9-1.1); PROTHROMBIN TIME (PATIENT) 13.5 SECONDS (9.0-12.0)
[2016-08-01 22:44] LABS: BUN/CREATININE RATIO 10.2 (10-20); CALCIUM 7.9 mg/dl (8.5-10.1); CREATININE 0.97 mg/dl (0.60-1.20); POTASSIUM 4.4 mmol/L (3.5-5.1)
[2016-08-01 22:55] LABS: BETA-HYDROXYBUTYRATE 18.55 mg/dL (0.2-2.81)
--- NOTE | 2016-08-01 23:50 | History and Physical ---
History & Physical Date & Time of Service: Aug 01, 2016 at 23:47 Chief Complaint: Dka Diabetic Ketoacidoses Primary Care Physician: Jorge Mancera D.OJaeInt.Med. History of Present Illness History and Physical Patient Name: MAYA MEYERS Admit Date: [facility] Rec: [id number] Att Phy: Jorge Mancera D.O.Int.Med. Acct ID: [id number] Alyssa Phy: Jorge Mancera D.O.Int.Med. Date: 1995 Fam Phy: Jorge Mancera D.O.Int.Med. Age: 21 Location: [facility] Sex: F Room/Bed: CC: Jorge Mancera D.O.Int.MedPaul Barrios M.D. *NOTICE TO RECEIVING CONSTITUTION PARTY/AGENCY This information is strictly Confidential and protected under [place] law. [place] law prohibits you from making any further disclosure of this information unless further disclosure is expressly permitted by the written consent of the person to whom it pertains or is authorized by law. A general authorization for the release of medical or other information is not sufficient for this purpose. Hospital accepts no responsibility if the information is made available to any other person, INCLUDING THE PATIENT. History & Physical Date & Time of Service: Jul 31, 2016 at 22:09 Chief Complaint: Celiac Disease, Chronic Constipation Primary Care Physician: Jorge Mancera D.O.Int.Med. History of Present Illness Source: patient The patient is a 21-year-old female who presents to the emergency department after noting her blood sugars becoming very elevated in the outpatient setting with no obvious signs of infection. 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 Upon arrival in the emergency department today, blood sugar was 688, she felt very dehydrated, and was referred for evaluation for admission. Her main symptoms today are that of generalized weakness. Past Medical/Surgical History Medical Problems: (1) Anxiety Status: Chronic (2) Bipolar 1 disorder Status: Chronic (3) Celiac disease Status: Chronic (4) Type I diabetes mellitus Status: Chronic Surgical Problems: (1) Hx of cataract surgery Status: Resolved Family History Cancer Diabetes mellitus FHx: celiac disease Gallbladder disease Heart disease Hypertension Seizures Social History Smoking Status: Current Every Day Smoker Drug Use: none Marital Status: single Occupational Status: [employer] student Multi-Drug Resistant Organisms History of MDRO: No Allergies Coded Allergies: Cashew (Verified Allergy, Severe, ANAPHYLAXIS, 07/27/16) Gluten (Verified Allergy, Severe, CELIAC'S DISEASE, 07/27/16) Peanut (Verified Allergy, Severe, ANAPHYLAXIS, 07/27/16) Penicillins (Verified Allergy, Severe, ANAPHYLAXIS, 07/27/16) SHELL FISH (Verified Allergy, Severe, ANAPHYLAXIS, 07/27/16) Milk (Unverified Allergy, Unknown, SENSITIVITY, 07/27/16) Oxcarbazepine (Verified Allergy, Unknown, Rash,hives and itchiness., ) Soy Allergy (Unverified Allergy, Unknown, , 07/27/16) Home Medications Scheduled Control Pills ( Control Pills), 1 TAB PO DAILY Calcium Carbonate (Calcium), 2,000 MG PO DAILY Ergocalciferol (Vitamin D), 50,000 INTER.UNIT PO Q2 WEEKS Insulin Aspart (novoLOG INSULIN PUMP ), 1 EA N/A UD Multiple Vitamins W/ Minerals (Airborne Gummies), 2 TABS PO DAILY Ranitidine HCl (Ranitidine HCl), 150-300 MG PO HS Scheduled PRN Albuterol Hfa (Ventolin Hfa), 2 PUFFS INH UD PRN for Prior to Exercise Epinephrine (Epipen), 0.3 MG IM UD PRN for ALLERGIC REACTION Glucagon (Glucagon Emergency Kit), 1 MG INJ UD PRN for HYPOGLYCEMIA PROTOCOL Lorazepam (Lorazepam), 0.5 MG PO DAILY PRN for Anxiety Ondansetron (Ondansetron HCl), 8 MG PO Q8 PRN for Nausea Polyethylene (Polyethylene Glycol 3350), 17 GM PO DAILY PRN for Constipation Review of Systems The patient denies chest pain, palpitations, shortness of breath, cough, lower extremity swelling, vision change, hearing change, sore throat, fevers, chills, sweats, weight change, fatigue, nausea, vomiting, abdominal pain, pelvic pain, blood in urine or stool, dysuria, urinary frequency or urgency, lightheadedness , dizziness, headache, memory loss, rash, abnormal bruising or bleeding, imbalance, focal weakness, numbness or tingling in arms or legs, arthralgias or myalgias, back or neck pain, night sweats, or allergy symptoms. The review of systems is otherwise negative other than for that already noted above, and at least 10 systems have been reviewed. Physical Exam The patient is awake, well-developed and adequately nourished, alert and oriented 3, normocephalic and atraumatic, lying in bed and in no acute distress. HEENT--PERRL, EOMI, mucous membranes and oropharynx dry. Neck--supple, no JVD or bruits, thyroid normal, trachea midline, no adenopathy. Heart--tachycardic and regular, no extra beats, no murmurs, rubs or gallops. Lungs--clear bilaterally with good air movement, no respiratory distress, no accessory muscle use. Abdomen--normal bowel sounds and soft, nontender and nondistended, no hernias or masses, no organomegaly. Extremities--no cyanosis, clubbing or edema. There are good distal pulses b/l. Dermatologic--normal skin turgor, normal color, warm and dry, no abnormal lymph nodes, no rash. Neurologic--cranial nerves II through XII grossly intact, motor and sensory examination normal. Rheumatologic--normal range of motion, nontender, muscles and joints. Psychiatric--normal affect. Diagnostics Diagnostic Radiology Patient Name: MAYA MEYERS Unit Number: [id number] Dictated: 07/31/161820 Transcribed: 07/31/161820 EV Printed Date/Time: / - [facility] Radiology Department [place] [id number] Dictated: 07/31/161820 Transcribed: 07/31/161820 EV Printed Date/Time: / - SINGLE VIEW CHEST CLINICAL HISTORY: Generalized weakness. FINDINGS: An AP, portable, upright chest radiograph is compared to study dated 08/27/2015 and correlated with chest CT dated 01/23/2016. The cardiomediastinal silhouette is unremarkable. The lungs and pleural spaces are clear. No pneumothorax is seen. The bony thorax is grossly intact. IMPRESSION: No active disease in the chest. Electronically signed by: Mick Jin M.D. 07/31/2016 6:22 PM Dictated Date/Time: 07/31/2016 6:21 PM The status of this report is Signed. Draft = Not yet reviewed or approved by Radiologist. Signed = Reviewed and approved by Radiologist. <AttendingPhy></AttendingPhy> <FamilyPhy>Jorge Mancera D.O.Int.Med.</ FamilyPhy> <PrimaryPhy>Jorge Mancera D.O.Int.Med.</PrimaryPhy> <UnitNumber> [id number]</UnitNumber> <VisitNumber>[id number]</VisitNumber> <PatientName> MAYA MEYERS Janet</PatientName> <DateOfBirth>1995</DateOfBirth> <Location> [facility]</Location> <ServiceDate>07/31/16</ServiceDate> <MNE>ESINDI</MNE> < OrderingPhy>Chau Nix M.D.</OrderingPhy> <OrderingPhyMNE>f rep ord dr loja</OrderingPhyMNE> <DictatingPhyMNE>f rep dict dr loja</DictatingPhyMNE> < CCListMNE>f rep ct mnlino</CCListMNE> <AdmittingPhyMNE>f pt admit dr loja</ AdmittingPhyMNE> <AttendingPhyMNE>f pt attend dr loja</AttendingPhyMNE> <ConsultingPhyMNE>f pt consult dr loja</ConsultingPhyMNE> <FamilyPhyMNE>f pt fam dr loja</FamilyPhyMNE> <OtherPhyMNE>f pt other dr loja</OtherPhyMNE> < PrimaryPhyMNE>f pt prim care dr loja</PrimaryPhyMNE> <ReferringPhyMNE>f pt referring dr loja</ReferringPhyMNE> Impression Assessment and Plan Diabetic ketoacidosis/type 1 diabetes mellitus--patient's blood sugars were relatively normal 3 days ago, and she has no active signs of infection. I will have her continue to use her insulin pump. We'll give her 10 units of Regular Insulin IV now, place her on normal saline potassium chloride 20 milliequivalents at 250 ML's per hour. Follow blood sugar one hour later was 356. At this point, the patient will get Accu-Cheks every 2 hours, and will be allowed to adjust her blood sugars with her insulin pump. We will continue to watch her for active signs of infection. She did later on reported that she did start to develop some occasional green discharge when she blows her nose. She will therefore be started on levofloxacin 500 mg IV every 24 hours. Pseudohyponatremia--secondary to hyperglycemia. We'll follow serial BMP and magnesium levels. Celiac disease/gluten sensitive enteropathy--her diet should be that of diabetic and gluten free. Asthma--we'll have albuterol HFA available to use when necessary. Next GERD--continue ranitidine at 300 mg by mouth at bedtime. Level of Care Telemetry Advanced Directives Existing Advance Directive: No Existing Living Will: No Existing Power of Iv Rn: No Resuscitation Status FULL RESUSCITATION VTE Prophylaxis Risk Level: Low Signed: Signed: The status of this report is Draft * If report status is Draft, the document has not been finalized by the responsible provider. MNE: [facility] History and Physical Template <AttendingPhy>Jorge Mancera D.O.Int.Med.</AttendingPhy><EDPhy></EDPhy> < FamilyPhy>Jorge Mancera D.O.Int.Med.</FamilyPhy> <PrimaryPhy>Jorge Mancera D.O.Int.Med.</PrimaryPhy><UnitNumber>[id number]</UnitNumber><VisitNumber> [id number]</VisitNumber><PatientName>AMANNUBIAMAYA Gonzales</PatientName>< DateOfBirth>1995</DateOfBirth><Age>21</Age><Location>[facility]</Location>< ServiceDate></ServiceDate><CC>Jorge Mancera D.O.Int.MedPaul Barrios M.D.</CC><MNE>ACUTEMED</MNE> Past Medical/Surgical History Medical Problems: (1) Anxiety Status: Chronic (2) Bipolar 1 disorder Status: Chronic (3) Celiac disease Status: Chronic (4) Type I diabetes mellitus Status: Chronic Surgical Problems: (1) Hx of cataract surgery Status: Resolved Family History Cancer Diabetes mellitus FHx: celiac disease Gallbladder disease Heart disease Hypertension Seizures Social History Smoking Status: Former Smoker Drug Use: none Marital Status: single Occupational Status: student Allergies Coded Allergies: Cashew (Verified Allergy, Severe, ANAPHYLAXIS, 07/27/16) Gluten (Verified Allergy, Severe, CELIAC'S DISEASE, 07/27/16) Peanut (Verified Allergy, Severe, ANAPHYLAXIS, 07/27/16) Penicillins (Verified Allergy, Severe, ANAPHYLAXIS, 07/27/16) SHELL FISH (Verified Allergy, Severe, ANAPHYLAXIS, 07/27/16) Milk (Unverified Allergy, Unknown, SENSITIVITY, 07/27/16) Oxcarbazepine (Verified Allergy, Unknown, Rash,hives and itchiness., ) Soy Allergy (Unverified Allergy, Unknown, , 07/27/16) Home Medications Scheduled Control Pills ( Control Pills), 1 TAB PO DAILY Calcium Carbonate (Calcium), 2,000 MG PO DAILY Ergocalciferol (Vitamin D), 50,000 INTER.UNIT PO Q2 WEEKS Insulin Aspart (novoLOG INSULIN PUMP ), 1 EA N/A UD Multiple Vitamins W/ Minerals (Airborne Gummies), 2 TABS PO DAILY Ranitidine HCl (Ranitidine HCl), 150-300 MG PO HS Scheduled PRN Albuterol Hfa (Ventolin Hfa), 2 PUFFS INH UD PRN for Prior to Exercise Epinephrine (Epipen), 0.3 MG IM UD PRN for ALLERGIC REACTION Glucagon (Glucagon Emergency Kit), 1 MG INJ UD PRN for HYPOGLYCEMIA PROTOCOL Lorazepam (Lorazepam), 0.5 MG PO DAILY PRN for Anxiety Ondansetron (Ondansetron HCl), 8 MG PO Q8 PRN for Nausea Polyethylene (Polyethylene Glycol 3350), 17 GM PO DAILY PRN for Constipation Physical Exam Vital Signs Date Time Temp Pulse Resp B/P Pulse Ox O2 Delivery O2 Flow Rate FiO2 08/01/16 22:00 106 23 111/53 99 Room Air 08/01/16 21:07 101 21 106/52 99 Room Air 08/01/16 21:06 100 98/51 100 Room Air 08/01/16 20:00 Room Air 08/01/16 18:17 98 20 88/50 100 Room Air 08/01/16 16:00 Room Air 08/01/16 16:00 108 20 96/57 100 Room Air 08/01/16 14:03 101 24 94/55 100 Room Air 08/01/16 12:00 36.8 118 24 113/69 100 Room Air 08/01/16 08:00 Room Air 08/01/16 07:20 36.9 121 22 100/58 98 Room Air 08/01/16 04:00 36.8 104 18 92/56 98 Room Air 08/01/16 04:00 Room Air 08/01/16 02:28 36.7 106 18 81/46 Room Air 08/01/16 01:27 101 20 91/55 100 08/01/16 00:26 105 20 92/53 100 Room Air Diagnostics Laboratory Results Results Past 24 Hours Test 08/01/16 00:17 08/01/16 01:57 08/01/16 04:00 08/01/16 05:50 Range/Units Bedside Glucose 279 366 333 326 70-90 mg/dl Test 08/01/16 07:37 08/01/16 08:52 08/01/16 09:49 08/01/16 09:55 Range/Units Bedside Glucose 364 419 70-90 mg/dl Venous Blood pH 7.06 7.36-7.41 Venous Blood Partial Pressure CO2 26 38.0-50.0 mmHg Venous Blood Partial Pressure O2 39 mmHg Venous Blood HCO3 7 mmol/L Venous Blood Oxygen Saturation 64.0 % Venous Blood Base Excess -21.6 mmol/L Phosphorus Level 2.7 2.5-4.9 mg/dl Magnesium Level 1.8 1.7 1.8-2.4 mg/dl White Blood Count 22.39 4.8-10.8 K/uL Red Blood Count 4.26 4.2-5.4 M/uL Hemoglobin 13.1 12.0-16.0 g/dL Hematocrit 38.8 37-47 % Mean Corpuscular Volume 91.1 80-100 fL Mean Corpuscular Hemoglobin 30.8 25-34 pg Mean Corpuscular Hemoglobin Concent 33.8 32-36 g/dl Platelet Count 380 130-400 K/uL Mean Platelet Volume 11.1 7.4-10.4 fL Neutrophils (%) (Auto) 91.8 % Lymphocytes (%) (Auto) 3.0 % Monocytes (%) (Auto) 4.6 % Eosinophils (%) (Auto) 0.0 % Basophils (%) (Auto) 0.1 % Neutrophils # (Auto) 20.54 1.4-6.5 K/uL Lymphocytes # (Auto) 0.67 1.2-3.4 K/uL Monocytes # (Auto) 1.03 0.11-0.59 K/uL Eosinophils # (Auto) 0.00 0-0.5 K/uL Basophils # (Auto) 0.03 0-0.2 K/uL RDW Standard Deviation 40.5 36.4-46.3 fL RDW Coefficient of Variation 12.1 11.5-14.5 % Immature Granulocyte % (Auto) 0.5 % Immature Granulocyte # (Auto) 0.12 0.00-0.02 K/uL Sodium Level 134 136-145 mmol/L Potassium Level 8.2 3.5-5.1 mmol/L Chloride Level 110 98-107 mmol/L Carbon Dioxide Level 6 21-32 mmol/L Anion Gap 18.0 3-11 mmol/L Blood Urea Nitrogen 18 7-18 mg/dl Creatinine 1.10 0.60-1.20 mg/dl Est Creatinine Clear Calc Drug Dose 69.3 ml/min Estimated GFR () 82.5 Estimated GFR (Non- 71.2 BUN/Creatinine Ratio 16.5 10-20 Random Glucose 434 70-99 mg/dl Calcium Level 8.6 8.5-10.1 mg/dl Total Bilirubin 1.4 0.2-1 mg/dl Direct Bilirubin 0.2 0-0.2 mg/dl Aspartate Amino Transf (AST/SGOT) 24 15-37 U/L Alanine Aminotransferase (ALT/SGPT) 23 12-78 U/L Alkaline Phosphatase 90 45-117 U/L Total Protein 7.1 6.4-8.2 gm/dl Albumin 3.8 3.4-5.0 gm/dl Beta-Hydroxybutyric Acid 78.36 0.2-2.81 mg/dL Test 08/01/16 11:25 08/01/16 11:53 08/01/16 13:00 08/01/16 14:11 Range/Units Venous Blood pH 7.00 7.36-7.41 Sodium Level 136 136-145 mmol/L Potassium Level 7.1 3.5-5.1 mmol/L Chloride Level 115 98-107 mmol/L Carbon Dioxide Level < 5 21-32 mmol/L Anion Gap 17.0 3-11 mmol/L Blood Urea Nitrogen 18 7-18 mg/dl Creatinine 0.84 0.60-1.20 mg/dl Est Creatinine Clear Calc Drug Dose 90.8 ml/min Estimated GFR () 114.3 Estimated GFR (Non- 98.7 BUN/Creatinine Ratio 20.8 10-20 Random Glucose 373 70-99 mg/dl Calcium Level 7.6 8.5-10.1 mg/dl Beta-Hydroxybutyric Acid 73.00 0.2-2.81 mg/dL Bedside Glucose 352 292 248 70-90 mg/dl Test 08/01/16 14:50 08/01/16 15:23 08/01/16 16:14 08/01/16 16:19 Range/Units Venous Blood pH 7.10 7.12 7.36-7.41 Sodium Level 137 137 136-145 mmol/L Potassium Level 6.1 6.4 3.5-5.1 mmol/L Chloride Level 115 114 98-107 mmol/L Carbon Dioxide Level 7 8 21-32 mmol/L Anion Gap 15.0 15.0 3-11 mmol/L Blood Urea Nitrogen 16 15 7-18 mg/dl Creatinine 0.88 0.94 0.60-1.20 mg/dl Est Creatinine Clear Calc Drug Dose 86.6 81.1 ml/min Estimated GFR () 108.1 99.8 Estimated GFR (Non- 93.3 86.1 BUN/Creatinine Ratio 17.8 15.4 10-20 Random Glucose 249 227 70-99 mg/dl Calcium Level 8.4 8.4 8.5-10.1 mg/dl Bedside Glucose 201 206 70-90 mg/dl Venous Blood Partial Pressure CO2 27 38.0-50.0 mmHg Venous Blood Partial Pressure O2 36 mmHg Venous Blood HCO3 8 mmol/L Venous Blood Oxygen Saturation 67.7 % Venous Blood Base Excess -19.4 mmol/L Phosphorus Level 2.8 2.5-4.9 mg/dl Magnesium Level 1.7 1.8-2.4 mg/dl Test 08/01/16 17:05 08/01/16 17:55 08/01/16 18:01 08/01/16 19:46 Range/Units Bedside Glucose 220 229 70-90 mg/dl Venous Blood pH 7.20 7.25 7.36-7.41 Venous Blood Partial Pressure CO2 25 27 38.0-50.0 mmHg Venous Blood Partial Pressure O2 41 52 mmHg Venous Blood HCO3 10 12 mmol/L Venous Blood Oxygen Saturation 76.3 86.3 % Venous Blood Base Excess -16.8 -14.1 mmol/L Sodium Level 137 137 136-145 mmol/L Potassium Level 5.6 5.2 3.5-5.1 mmol/L Chloride Level 114 114 98-107 mmol/L Carbon Dioxide Level 10 12 21-32 mmol/L Anion Gap 13.0 11.0 3-11 mmol/L Blood Urea Nitrogen 12 11 7-18 mg/dl Creatinine 0.95 0.94 0.60-1.20 mg/dl Est Creatinine Clear Calc Drug Dose 80.3 81.1 ml/min Estimated GFR () 98.5 99.8 Estimated GFR (Non- 85.0 86.1 BUN/Creatinine Ratio 12.9 11.6 10-20 Random Glucose 247 279 70-99 mg/dl Calcium Level 8.2 7.9 8.5-10.1 mg/dl Phosphorus Level 2.6 2.4 2.5-4.9 mg/dl Magnesium Level 1.7 1.5 1.8-2.4 mg/dl Test 08/01/16 20:25 08/01/16 21:33 08/01/16 22:03 08/01/16 22:44 Range/Units Bedside Glucose 253 300 324 70-90 mg/dl Prothrombin Time 13.5 9.0-12.0 SECONDS Prothromb Time International Ratio 1.3 0.9-1.1 Venous Blood pH 7.26 7.36-7.41 Venous Blood Partial Pressure CO2 30 38.0-50.0 mmHg Venous Blood Partial Pressure O2 43 mmHg Venous Blood HCO3 13 mmol/L Venous Blood Oxygen Saturation 77.4 % Venous Blood Base Excess -12.8 mmol/L Sodium Level 137 136-145 mmol/L Potassium Level 4.4 3.5-5.1 mmol/L Chloride Level 113 98-107 mmol/L Carbon Dioxide Level 15 21-32 mmol/L Anion Gap 9.0 3-11 mmol/L Blood Urea Nitrogen 10 7-18 mg/dl Creatinine 0.97 0.60-1.20 mg/dl Est Creatinine Clear Calc Drug Dose 78.6 ml/min Estimated GFR () 96.1 Estimated GFR (Non- 82.9 BUN/Creatinine Ratio 10.2 10-20 Random Glucose 344 70-99 mg/dl Calcium Level 7.9 8.5-10.1 mg/dl Beta-Hydroxybutyric Acid 18.55 0.2-2.81 mg/dL Procalcitonin 2.64 0-0.5 ng/mL Impression Advanced Directives Existing Living Will: No Existing Power of Iv Rn: No VTE Prophylaxis VTE Risk Assessment Done? Y/N: Yes Risk Level: Low
[2016-08-02] VITALS (13 sets, daily range): BP systolic 11–133; BP diastolic 37–93; PULSE 75–106; TEMP 36.9–37.1; O2SAT 97–100; Ht 162.6 cm; Wt 60.6 kg
[2016-08-02 00:13] LABS: VEN BLOOD GAS BASE EXCESS -11.8 mmol/L
[2016-08-02 00:30] LABS: BUN/CREATININE RATIO 8.6 (10-20); CALCIUM 7.8 mg/dl (8.5-10.1); CREATININE 0.96 mg/dl (0.60-1.20); POTASSIUM 4.2 mmol/L (3.5-5.1)
[2016-08-02 00:46] LABS: BETA-HYDROXYBUTYRATE 8.05 mg/dL (0.2-2.81)
[2016-08-02] MEDS: D5W AND 1/2NSS + 20MEQ KCL 1,000 ML IV SCH ×5 (01:26→21:21)
[2016-08-02 05:12] LABS: VEN BLD GAS O2 SATURATION 92.4 %; VEN BLOOD GAS BASE EXCESS -10.7 mmol/L
[2016-08-02 05:30] LABS: INR 1.3 (0.9-1.1); PROTHROMBIN TIME (PATIENT) 13.6 SECONDS (9.0-12.0)
[2016-08-02 05:48] LABS: BASO % 0.2 %; BASO ABS # 0.02 K/uL (0-0.2); COMPLETE YES; EOS % 0.3 %; HEMATOCRIT 30.8 % (37-47); IG% 0.2 %; LYMPH % 19.7 %; LYMPH ABS # 2.16 K/uL (1.2-3.4); MEAN CELL VOLUME 89.3 fL (80-100); MEAN CORPUSCULAR HEMOGLOBIN 30.4 pg (25-34); MEAN CORPUSCULAR HGB CONC 34.1 g/dl (32-36); MEAN PLATELET VOLUME 10.9 fL (7.4-10.4); MONO % 9.5 %; NEUT % 70.1 %; PLATELET COUNT 256 K/uL (130-400); RED BLOOD COUNT 3.45 M/uL (4.2-5.4); WHITE BLOOD COUNT 10.94 K/uL (4.8-10.8)
[2016-08-02] MEDS: HEPARIN SOD 5000 UNIT/0.5 ML CARP SQ SCH ×2 (06:00→18:00)
[2016-08-02 06:03] LABS: BUN/CREATININE RATIO 7.5 (10-20); CALCIUM 7.9 mg/dl (8.5-10.1); CREATININE 0.92 mg/dl (0.60-1.20); MAGNESIUM 1.5 mg/dl (1.8-2.4); POTASSIUM 4.2 mmol/L (3.5-5.1)
[2016-08-02 06:22] LABS: ALB/GLOB RATIO 1.1 (0.9-2); BETA-HYDROXYBUTYRATE 2.73 mg/dL (0.2-2.81)
[2016-08-02 06:30] LABS: PHOSPHORUS 1.3 mg/dl (2.5-4.9)
[2016-08-02] MEDS ORDERED: SODIUM PHOSPHATE 3 MMOL/1 ML INFUSION IV STA (06:34)
[2016-08-02] MEDS ORDERED: SODIUM PHOSPHATE INJ 30 MMOL in SODIUM CHLORIDE 0.9% 500ML 500 ML IV SCH (07:15)
[2016-08-02] MEDS: INSULIN ASPART 100 UNITS/ML 3 ML PEN SC SCH ×4 (07:16→20:21)
--- NOTE | 2016-08-02 08:47 | Family Medicine Progress Note ---
Progress Note Date of Service Aug 02, 2016. Subjective Pt evaluation today including: conversation w/ patient, physical exam, chart review, lab review, review of studies, review of inpatient medication list Feels much improved this morning. Reduced abdominal pain and nausea but not completely resolved. Slight light headedness when she first gets up but otherwise doing well. No coughing, shortness of breath, chest pain. Not yet had a BM. All Other Systems: Reviewed and Negative Medications Current Inpatient Medications Medications (Trade) Dose Ordered Sig/Freddy Route Start Time Stop Time Status Last Admin Dose Admin Acetaminophen (Tylenol Tab) 650 mg Q4H PRN PO 07/31/16 19:30 08/30/16 19:29 08/01/16 08:10 650 MG Ondansetron HCl 4 mg 4 mg Q6H PRN IV 07/31/16 19:30 08/30/16 19:29 08/01/16 08:48 4 MG Pantoprazole Sodium/Syringe (Protonix Inj/ Syringe) 10 ml @ 5 mls/min DAILY@11 IV 08/01/16 11:00 08/31/16 10:59 08/01/16 11:57 5 MLS/MIN Insulin Aspart (novoLOG ASPART) SLIDING SCALE If C... Q2H SC 08/01/16 02:00 08/31/16 01:59 Future Hold 08/01/16 05:58 1.04 UNITS Glucose (Glucose 40% Gel) UD PRN PO 07/31/16 19:30 08/30/16 19:29 Glucose (Glucose Chew Tab) 1 tabs UD PRN PO 07/31/16 19:30 08/30/16 19:29 Dextrose (Dextrose 50% 50ML Syringe) 50 ml UD PRN IV 07/31/16 19:30 08/30/16 19:29 Glucagon (Glucagon Inj) 1 mg UD PRN SQ 07/31/16 19:30 08/30/16 19:29 Albuterol (Ventolin Hfa Inhaler) 2 puffs UD PRN INH 07/31/16 19:30 08/30/16 19:29 Insulin Aspart (novoLOG INSULIN PUMP) 1 ea UD N/A 07/31/16 19:30 08/30/16 19:29 Future Hold Lorazepam (Ativan Tab) 0.5 mg DAILY PRN PO 07/31/16 19:30 08/30/16 19:29 Ranitidine HCl (zANTac TAB) 300 mg HS PO 07/31/16 21:00 08/30/16 20:59 08/01/16 21:23 300 MG Miscellaneous Information (Order Awaiting Action) 1 ea QS N/A 08/01/16 00:00 08/31/16 00:00 Miscellaneous Information (Order Awaiting Action) 1 ea QS N/A 08/01/16 00:00 08/31/16 00:00 Calcium/Vitamin D (Caltrate Plus Tab) 1 tab BID PO 07/31/16 21:00 08/30/16 20:59 08/01/16 21:22 1 TAB Polyethylene 17 gm 17 gm DAILY PRN PO 07/31/16 19:30 08/30/16 19:29 Levofloxacin 500 mg/Prmx 100 ml @ 100 mls/hr Q24H IV 07/31/16 21:00 08/07/16 20:59 Future Hold 08/01/16 21:21 100 MLS/HR Insulin Human Regular/Sodium Chloride (novoLIN-R/Nss 250ml) 252.5 ml @ 0 mls/hr DAILY@1130 IV 08/01/16 10:30 08/31/16 10:29 08/01/16 10:42 1.4 MLS/HR Insulin Aspart (novoLOG ASPART) SLIDING SCALE PCHS SC 08/01/16 12:53 08/31/16 12:59 Heparin Sodium (Porcine) 5000 unit 5,000 unit Q12H SQ 08/02/16 06:00 09/01/16 05:59 Potassium Chloride/Dextrose/ Sod Cl 1,000 ml @ 250 mls/hr Q4H IV 08/02/16 01:30 09/01/16 01:29 08/02/16 05:26 250 MLS/HR Sodium Phosphate/ Sodium Chloride (Sodium Phosphate Inj/Nss 500ml) 510 ml @ 102 mls/hr TODAY@0715 IV 08/02/16 07:15 08/02/16 12:14 08/02/16 07:56 102 MLS/HR Objective Vital Signs Date Time Temp Pulse Resp B/P Pulse Ox O2 Delivery O2 Flow Rate FiO2 08/02/16 08:00 87 20 99/60 98 08/02/16 08:00 Room Air 08/02/16 06:00 92 13 90/37 98 08/02/16 04:00 Room Air 08/02/16 04:00 85 18 88/53 98 Room Air 08/02/16 03:00 90 18 96/49 98 Room Air 08/02/16 02:03 106 24 98/78 99 Room Air 08/02/16 01:00 92 18 92/44 97 Room Air 08/02/16 00:05 Room Air 08/02/16 00:00 101 15 88/38 98 Room Air 08/01/16 22:00 106 23 111/53 99 Room Air 08/01/16 21:07 101 21 106/52 99 Room Air 08/01/16 21:06 100 98/51 100 Room Air 08/01/16 20:00 Room Air 08/01/16 18:17 98 20 88/50 100 Room Air 08/01/16 16:00 Room Air 08/01/16 16:00 108 20 96/57 100 Room Air 08/01/16 14:03 101 24 94/55 100 Room Air 08/01/16 12:00 36.8 118 24 113/69 100 Room Air Physical Exam General Appearance: WD/WN, no apparent distress Eyes: normal inspection (pupils equal) Neck: supple, no JVD Respiratory/Chest: chest non-tender, lungs clear, normal breath sounds, no respiratory distress, no accessory muscle use Cardiovascular: regular rate, rhythm, no murmur Abdomen: normal bowel sounds, soft, + tenderness (mild without rebound or guarding) Extremities: no pedal edema, no calf tenderness, normal capillary refill Neurologic/Psychiatric: supervisor byproducts II-XII nml as tested, no motor/sensory deficits, alert, normal mood/affect, oriented x 3 Skin: normal color, warm/dry, no rash Laboratory Results 08/02/16 05:04 Red Blood Count 3.45, Mean Corpuscular Volume 89.3, Mean Corpuscular Hemoglobin 30.4, Mean Corpuscular Hemoglobin Concent 34.1, Mean Platelet Volume 10.9, Neutrophils (%) (Auto) 70.1, Lymphocytes (%) (Auto) 19.7, Monocytes (%) (Auto) 9.5, Eosinophils (%) (Auto) 0.3, Basophils (%) (Auto) 0.2, Neutrophils # (Auto) 7.67, Lymphocytes # (Auto) 2.16, Monocytes # (Auto) 1.04, Eosinophils # (Auto) 0.03, Basophils # (Auto) 0.02 08/02/16 05:04 Test 08/01/16 09:55 08/01/16 22:03 08/02/16 04:58 08/02/16 05:04 Direct Bilirubin 0.2 mg/dl (0-0.2) Procalcitonin 2.64 ng/mL (0-0.5) Prothrombin Time 13.6 SECONDS (9.0-12.0) Prothromb Time International Ratio 1.3 (0.9-1.1) Venous Blood pH 7.29 (7.36-7.41) Venous Blood Partial Pressure CO2 32 mmHg (38.0-50.0) Venous Blood Partial Pressure O2 67 mmHg Venous Blood HCO3 15 mmol/L Venous Blood Oxygen Saturation 92.4 % Venous Blood Base Excess -10.7 mmol/L White Blood Count 10.94 K/uL (4.8-10.8) Red Blood Count 3.45 M/uL (4.2-5.4) Hemoglobin 10.5 g/dL (12.0-16.0) Hematocrit 30.8 % (37-47) Mean Corpuscular Volume 89.3 fL (80-100) Mean Corpuscular Hemoglobin 30.4 pg (25-34) Mean Corpuscular Hemoglobin Concent 34.1 g/dl (32-36) Platelet Count 256 K/uL (130-400) Mean Platelet Volume 10.9 fL (7.4-10.4) Neutrophils (%) (Auto) 70.1 % Lymphocytes (%) (Auto) 19.7 % Monocytes (%) (Auto) 9.5 % Eosinophils (%) (Auto) 0.3 % Basophils (%) (Auto) 0.2 % Neutrophils # (Auto) 7.67 K/uL (1.4-6.5) Lymphocytes # (Auto) 2.16 K/uL (1.2-3.4) Monocytes # (Auto) 1.04 K/uL (0.11-0.59) Eosinophils # (Auto) 0.03 K/uL (0-0.5) Basophils # (Auto) 0.02 K/uL (0-0.2) RDW Standard Deviation 40.2 fL (36.4-46.3) RDW Coefficient of Variation 12.4 % (11.5-14.5) Immature Granulocyte % (Auto) 0.2 % Immature Granulocyte # (Auto) 0.02 K/uL (0.00-0.02) Anion Gap 8.0 mmol/L (3-11) Est Creatinine Clear Calc Drug Dose 82.9 ml/min Estimated GFR () 102.4 Estimated GFR (Non- 88.4 BUN/Creatinine Ratio 7.5 (10-20) Calcium Level 7.9 mg/dl (8.5-10.1) Phosphorus Level 1.3 mg/dl (2.5-4.9) Magnesium Level 1.5 mg/dl (1.8-2.4) Total Bilirubin 1.4 mg/dl (0.2-1) Aspartate Amino Transf (AST/SGOT) 15 U/L (15-37) Alanine Aminotransferase (ALT/SGPT) 16 U/L (12-78) Alkaline Phosphatase 57 U/L (45-117) Total Protein 5.2 gm/dl (6.4-8.2) Albumin 2.7 gm/dl (3.4-5.0) Globulin 2.5 gm/dl (2.5-4.0) Albumin/Globulin Ratio 1.1 (0.9-2) Beta-Hydroxybutyric Acid 2.73 mg/dL (0.2-2.81) Test 08/02/16 08:18 Bedside Glucose 223 mg/dl (70-90) Assessment and Plan 21 yo female with T1DM (insulin pump) presented to the ER with DKA. Glucose 688. beta hydroxybutyric acid 61.95 HbA1C 8.8. pH 7.33. She has had recent URI with cough, nasal congestion + gastroenteritis symptoms with diarrhea possibly the cause of this. Diabetic ketoacidosis / Type 1 diabetes - anion gap closed overnight - switch to basal bolus insulin - she wishes to use SQ insulin instead of her pump for the first day - Continue IVF - switch to insulin pump tomorrow Hyperkalemia - resolved 4.2 Hypophosphatemia - 30 mmol sodium phos replacement given Hypomagnesemia - 2g Mg Sulphate IV - BMP, PO, Mg in afternoon URI, gastroenteritis, leukocytosis - blood cultures negative, stop Levaquin Non acute issues; Hx celiac disease - gluten free diet when back on diet GERD - on ranitidine at home but suspect unable to take PO meds currently, continue IV pantoprazole VTE Prophylaxis - Heparin 5000 units Q8H SQ Code - Full Disposition - transfer to ICU Resident Tracking Resident Involvement: Resident Care Provided Care Provided: Adult Hospital Medicine History Resident Physician Supervision Note: I was present with Dr. Gould during the history and exam. I discussed the case with the resident and agree with the findings and plan as documented in the note. Any exceptions or clarifications are listed here. Pt seen and examined at bedside. Pt reports improvement in diffuse abdominal pain at this time. Has had IV site changes with difficulty in placement. Discussed with patient in detail her history of insulin omission and laxative use. She states that she has omitted doses of insulin repeatedly in the past because of concern regarding gaining weight, and this has resulted in admissions for keturia in the past. She also reports near daily laxative use as both a patch for the gastroparesis and an effort to control her weight. She states that her habits and focus on body image resulted from her care as a child when her parents would use laxatives to ameliorate the symptoms of hyperglycemia and she believes that if she were to be thin and happy and have friends, she wouldn't have diabetes any more. I have encouraged her to modify these behaviors and discussed at length their potential consequences. I have encouraged her to seek further therapy for her laxative abuse and to address her feelings of insecurity regarding her medical conditions. Per her description, she carries no mental health diagnosis in regards to the circumstances described above. General Appearance: WD/WN, no apparent distress Respiratory: chest non-tender, lungs clear, normal breath sounds, no respiratory distress Cardiovascular: normal peripheral pulses, regular rate, rhythm, no edema, no murmur Gastrointestinal: normal bowel sounds, non tender, soft, no organomegaly Assessment/Plan 21 y/o female h/o type 1 DM presents with DKA DKA in the setting of type 1 DM, uncontrolled w/ gastroparesis - transition to telemetry - transition from insulin drip to lantus/aspart - repeat BMP and CBC at 1700 Laxative abuse - encouraged seeking of therapy and rehab for underlying issue Infectious process - cultures negative, d/c levofloxacin Hyperkalemia - resolved Hypokalemia - replete gently and recheck BMP in AM Hypomagnesemia - repleted, recheck in AM Hypophosphatemia - repleted, recheck in AM Anxiety - ativan PRN
[2016-08-02] MEDS ORDERED: INSULIN GLARGINE SOLOSTAR 100 UNITS/ML 3 ML PEN SC ONE (10:00)
[2016-08-02] MEDS: CALCIUM 600MG + VIT D 400 IU TAB PO SCH ×2 (10:10→20:37)
[2016-08-02] MEDS ORDERED: MAGNESIUM SULFATE 1GM / D5W 1 GM in PREMIXED IN D5W 100 ML IV ONE (11:30)
[2016-08-02] MEDS: INSULIN REGULAR 250 UNITS in SODIUM CHLORIDE 0.9% 250ML 250 ML IV SCH (12:08)
[2016-08-02] MEDS ORDERED: [UNRECOGNIZED DRUG - REMARK] ONE (16:15)
[2016-08-02 18:07] LABS: BUN/CREATININE RATIO 4.8 (10-20); CREATININE 0.67 mg/dl (0.60-1.20); MAGNESIUM 1.6 mg/dl (1.8-2.4); POTASSIUM 3.4 mmol/L (3.5-5.1)
[2016-08-02 18:10] LABS: ALB/GLOB RATIO 1.1 (0.9-2); PHOSPHORUS 1.8 mg/dl (2.5-4.9)
[2016-08-02] MEDS ORDERED: POTASSIUM PHOS 3 MMOL/1 ML INFUSION IV STA (20:16)
[2016-08-02] MEDS ORDERED: MAGNESIUM SULFATE 1GM / D5W 1 GM in PREMIXED IN D5W 100 ML IV STA (20:23)
[2016-08-02] MEDS ORDERED: POTASSIUM PHOSPHATE INJ 15 MMOL in SODIUM CHLORIDE 0.9% 250ML 250 ML IV SCH (20:30)
[2016-08-02] MEDS: RANITIDINE HCL 150 MG TAB PO SCH (20:36)
[2016-08-03] VITALS: O2SAT 100
[2016-08-03] MEDS: D5W AND 1/2NSS + 20MEQ KCL 1,000 ML IV SCH ×2 (04:31→10:53)
[2016-08-03] MEDS: INSULIN ASPART 100 UNITS/ML 3 ML PEN SC SCH ×3 (04:35→08:54)
[2016-08-03] MEDS: HEPARIN SOD 5000 UNIT/0.5 ML CARP SQ SCH ×2 (05:57→17:57)
[2016-08-03 07:19] VITALS: BP 108/74; PULSE 67; TEMP 36.6; O2SAT 99
[2016-08-03 07:38] LABS: HEMATOCRIT 30.8 % (37-47); MEAN CELL VOLUME 87.3 fL (80-100); MEAN CORPUSCULAR HEMOGLOBIN 30.6 pg (25-34); MEAN CORPUSCULAR HGB CONC 35.1 g/dl (32-36); MEAN PLATELET VOLUME 10.6 fL (7.4-10.4); PLATELET COUNT 233 K/uL (130-400); RED BLOOD COUNT 3.53 M/uL (4.2-5.4); WHITE BLOOD COUNT 5.57 K/uL (4.8-10.8)
[2016-08-03] MEDS: CALCIUM 600MG + VIT D 400 IU TAB PO SCH ×2 (07:48→19:41)
[2016-08-03 08:12] LABS: BUN/CREATININE RATIO 3.6 (10-20); CALCIUM 7.5 mg/dl (8.5-10.1); CREATININE 0.75 mg/dl (0.60-1.20); MAGNESIUM 1.7 mg/dl (1.8-2.4); POTASSIUM 3.9 mmol/L (3.5-5.1)
[2016-08-03 08:15] LABS: ALB/GLOB RATIO 1.1 (0.9-2); PHOSPHORUS 2.3 mg/dl (2.5-4.9)
[2016-08-03 08:29] LABS: COMPLETE YES; LYMPHOCYTE % 28.7 %; NEUTROPHILS % 59.1 %
[2016-08-03 08:30] VITALS: O2SAT 99
[2016-08-03] MEDS ORDERED: POTASSIUM PHOS 3 MMOL/1 ML INFUSION IV STA ×2 (10:53→18:55)
[2016-08-03] MEDS ORDERED: NovoLOG INSULIN PUMP SCH (11:00)
[2016-08-03] MEDS ORDERED: INSULIN ASPART 100 UNITS/ML VIAL SC PRN (11:00)
[2016-08-03] MEDS ORDERED: POTASSIUM PHOSPHATE INJ 9 MMOL in SODIUM CHLORIDE 0.9% 250ML 250 ML IV SCH (11:15)
[2016-08-03] MEDS ORDERED: MAGNESIUM SULFATE 1GM / D5W 1 GM in PREMIXED IN D5W 100 ML IV ONE (11:15)
[2016-08-03] MEDS: NovoLOG INSULIN PUMP SCH ×3 (12:36→20:48)
[2016-08-03 15:34] VITALS: BP 108/75; PULSE 73; TEMP 36.6; O2SAT 97
--- NOTE | 2016-08-03 16:44 | Discharge Instructions ---
Discharge Instructions Date of Service Aug 03, 2016. Admission Reason for Admission: Dka Diabetic Ketoacidoses Discharge Discharge Diagnosis / Problem: Diabetic Ketoacidosis Discharge Goals Goal(s): Improve disease control, Improve nutritional status Activity Recommendations Activity Limitations: resume your previous activity . Instructions / Follow-Up Instructions / Follow-Up You were admitted for diabetic ketoacidosis. You have now been transitioned back to your insulin pump and you should continue your previous insulin regimen bolus dosing. On discussion with Luis Eduardo Roe at the diabetes clinic we recommend you change the correction factor to 50 but continue on the same carbohydrate coverage. Follow up with the diabetic clinic with Luis Eduardo Roe PA-C as previously arranged on Saturday. [facility], [address], [place] [address] Current Hospital Diet Patient's current hospital diet: Diabetes Type 1 Diet, Low Fiber Diet, Low Fat Diet, Gluten Free Diet Discharge Diet Recommended Diet: Diabetes Type 1 Diet, Low Fiber Diet, Low Fat Diet, Gluten Free Diet Pending Studies Studies pending at discharge: no Laboratory Results Hemoglobin A1c Test 07/31/16 18:10 Range/Units Estimated Average Glucose 194 mg/dl Hemoglobin A1c 8.4 H 4.5-5.6 % Medical Emergencies . Who to Call and When: Medical Emergencies: If at any time you feel your situation is an emergency, please call 911 immediately. . Non-Emergent Contact Non-Emergency issues call your: Specialist (Filter Tank Operator) Contact Number: . . "Provider Documentation" section prepared by Saúl Gould. VTE Core Measure Inpt VTE Proph given/why not?: Refusal of treatmnt by pt
[2016-08-03 17:57] LABS: BUN/CREATININE RATIO 7.8 (10-20); CALCIUM 8.3 mg/dl (8.5-10.1); CREATININE 0.67 mg/dl (0.60-1.20); MAGNESIUM 1.6 mg/dl (1.8-2.4); POTASSIUM 3.6 mmol/L (3.5-5.1)
[2016-08-03 17:58] LABS: PHOSPHORUS 2.1 mg/dl (2.5-4.9)
[2016-08-03] MEDS: MAGNESIUM SULFATE 1GM / D5W 1 GM in PREMIXED IN D5W 100 ML IV SCH ×2 (19:40→20:56)
[2016-08-03] MEDS: POT PHOSPHATE MONOBASIC W/ SOD TAB PO SCH (19:41)
[2016-08-03] MEDS: MAGNESIUM OXIDE 400 MG TAB PO SCH (19:41)
[2016-08-03] MEDS ORDERED: POTASSIUM PHOSPHATE INJ 15 MMOL in SODIUM CHLORIDE 0.9% 250ML 250 ML IV SCH (20:30)
[2016-08-03] MEDS: RANITIDINE HCL 150 MG TAB PO SCH (20:56)
--- NOTE | 2016-08-03 20:59 | Family Medicine Progress Note ---
Progress Note Date of Service Aug 03, 2016. Subjective Pt evaluation today including: conversation w/ patient, physical exam, chart review, lab review, review of studies, review of inpatient medication list Voiding: no voiding problems Feeling better today. No problems using insulin pump and glucose levels well controlled. All Other Systems: Reviewed and Negative Medications Current Inpatient Medications Medications (Trade) Dose Ordered Sig/Freddy Route Start Time Stop Time Status Last Admin Dose Admin Acetaminophen (Tylenol Tab) 650 mg Q4H PRN PO 07/31/16 19:30 08/30/16 19:29 08/01/16 08:10 650 MG Ondansetron HCl (Zofran Inj) 4 mg Q6H PRN IV 07/31/16 19:30 08/30/16 19:29 08/01/16 08:48 4 MG Glucose (Glucose 40% Gel) UD PRN PO 07/31/16 19:30 08/30/16 19:29 Glucose (Glucose Chew Tab) 1 tabs UD PRN PO 07/31/16 19:30 08/30/16 19:29 Dextrose (Dextrose 50% 50ML Syringe) 50 ml UD PRN IV 07/31/16 19:30 08/30/16 19:29 Glucagon (Glucagon Inj) 1 mg UD PRN SQ 07/31/16 19:30 08/30/16 19:29 Albuterol (Ventolin Hfa Inhaler) 2 puffs UD PRN INH 07/31/16 19:30 08/30/16 19:29 Lorazepam (Ativan Tab) 0.5 mg DAILY PRN PO 07/31/16 19:30 08/30/16 19:29 Ranitidine HCl (zANTac TAB) 300 mg HS PO 07/31/16 21:00 08/30/16 20:59 08/02/16 20:36 300 MG Miscellaneous Information (Order Awaiting Action) 1 ea QS N/A 08/01/16 00:00 08/31/16 00:00 Miscellaneous Information (Order Awaiting Action) 1 ea QS N/A 08/01/16 00:00 08/31/16 00:00 Calcium/Vitamin D (Caltrate Plus Tab) 1 tab BID PO 07/31/16 21:00 08/30/16 20:59 08/03/16 07:48 1 TAB Polyethylene (Miralax Powder Packet) 17 gm DAILY PRN PO 07/31/16 19:30 08/30/16 19:29 Heparin Sodium (Porcine) (Heparin Sq 5000 Unit/0.5ml) 5,000 unit Q12H SQ 08/02/16 06:00 09/01/16 05:59 Heparin Sodium (Porcine) (Heparin 10 Unit/ ml 5 ml Flush) 5 ml PRN PRN FLUSH 08/02/16 17:45 09/01/16 17:44 08/03/16 17:26 5 ML Insulin Aspart (novoLOG INSULIN PUMP) 1 ea ACHS N/A 08/03/16 11:00 09/02/16 10:59 08/03/16 17:57 1 EA Insulin Aspart (novoLOG ASPART) SLIDING SCALE PRN PRN SC 08/03/16 11:00 09/02/16 10:59 Potassium Phosphate (Potassium Phosphate Replacement) 15 mmol NOW STAT IV 08/03/16 18:55 08/03/16 18:56 UNV Magnesium Oxide 400 mg 400 mg BID PO 08/03/16 20:00 09/02/16 19:59 UNV Magnesium Sulfate/ Prmx (Magnesium Sulfate/Premixed D5W) 100 ml @ 100 mls/hr NOW STAT IV 08/03/16 18:55 08/03/16 19:54 UNV Potassium/ Phosphorus/Sodium (Phospha 250 Neutral 155-852-130 Mg) 1 tab QID PO 08/03/16 20:00 09/02/16 19:59 UNV Objective Vital Signs Date Time Temp Pulse Resp B/P Pulse Ox O2 Delivery O2 Flow Rate FiO2 08/03/16 16:00 Room Air 08/03/16 15:34 36.6 73 20 108/75 97 Room Air 08/03/16 08:30 99 Room Air 08/03/16 07:19 36.6 67 16 108/74 99 Room Air 08/03/16 00:00 100 Room Air 08/02/16 23:43 36.9 75 20 102/69 100 Room Air 08/02/16 20:57 37.1 80 16 98 08/02/16 20:25 37.1 80 16 133/93 98 Room Air Physical Exam General Appearance: WD/WN, no apparent distress Respiratory/Chest: lungs clear, normal breath sounds, no respiratory distress, no accessory muscle use Cardiovascular: regular rate, rhythm, no murmur Abdomen: normal bowel sounds, non tender, soft Neurologic/Psychiatric: alert, oriented x 3 Laboratory Results 08/03/16 07:16 Red Blood Count 3.53, Mean Corpuscular Volume 87.3, Mean Corpuscular Hemoglobin 30.6, Mean Corpuscular Hemoglobin Concent 35.1, Mean Platelet Volume 10.6 08/03/16 17:23 Test 08/03/16 07:16 08/03/16 16:23 08/03/16 17:23 White Blood Count 5.57 K/uL (4.8-10.8) Red Blood Count 3.53 M/uL (4.2-5.4) Hemoglobin 10.8 g/dL (12.0-16.0) Hematocrit 30.8 % (37-47) Mean Corpuscular Volume 87.3 fL (80-100) Mean Corpuscular Hemoglobin 30.6 pg (25-34) Mean Corpuscular Hemoglobin Concent 35.1 g/dl (32-36) Platelet Count 233 K/uL (130-400) Mean Platelet Volume 10.6 fL (7.4-10.4) RDW Standard Deviation 40.5 fL (36.4-46.3) RDW Coefficient of Variation 12.6 % (11.5-14.5) Neutrophils % (Manual) 59.1 % Lymphocytes % (Manual) 28.7 % Monocytes % (Manual) 12.2 % Neutrophils # (Manual) 3.29 K/uL (1.4-6.5) Total Absolute Neutrophils 3.29 K/uL (1.4-6.5) Lymphocytes # (Manual) 1.60 K/uL (1.2-3.4) Total Absolute Lymphocytes 1.60 K/uL (1.2-3.4) Monocytes # (Manual) 0.68 K/uL (0.11-0.59) Activated Partial Thromboplast Time 27.1 SECONDS (21.0-31.0) Partial Thromboplastin Ratio 1.0 Total Bilirubin 1.0 mg/dl (0.2-1) Aspartate Amino Transf (AST/SGOT) 22 U/L (15-37) Alanine Aminotransferase (ALT/SGPT) 21 U/L (12-78) Alkaline Phosphatase 55 U/L (45-117) Total Protein 5.0 gm/dl (6.4-8.2) Albumin 2.6 gm/dl (3.4-5.0) Globulin 2.4 gm/dl (2.5-4.0) Albumin/Globulin Ratio 1.1 (0.9-2) Bedside Glucose 140 mg/dl (70-90) Anion Gap 7.0 mmol/L (3-11) Est Creatinine Clear Calc Drug Dose 113.8 ml/min Estimated GFR () 144.6 Estimated GFR (Non- 124.8 BUN/Creatinine Ratio 7.8 (10-20) Calcium Level 8.3 mg/dl (8.5-10.1) Phosphorus Level 2.1 mg/dl (2.5-4.9) Magnesium Level 1.6 mg/dl (1.8-2.4) Assessment and Plan 21 yo female with T1DM (insulin pump) presented to the ER with DKA. Glucose 688. beta hydroxybutyric acid 61.95 HbA1C 8.8. pH 7.33. She has had recent URI with cough, nasal congestion + gastroenteritis symptoms with diarrhea possibly the cause of this. Diabetic ketoacidosis / Type 1 diabetes - anion gap closed overnight - converted to her insulin pump today but changed correction from 80 to 50, carb 1:7 on advice of Luis Eduardo Roe PA-C. 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 Recommend inpatient rehab but she feels she is unable to go to this due to university/financial commitments. Borderline personality disorder with previous suicidal ideation/attempt - no current suicidal or harmful thoughts - one suicidal attempt in the past aged 15 - previous bipolar diagnosis and tried multiple SSRIs and mood stabilizers in the past - does not wish to speak to psych on this admission and has good support outpatient network Hyperkalemia - resolved 3.6, repeat BMP in morning Hypophosphatemia - repeat phosphate down after replacement, replace with 15 mmol K Phos and 8mmol tablets QID overnight Hypomagnesemia - repeat Mg 1.6 down after replacement, replace with 2g IV and mag oxide 400mg BID overnight, repeat in morning Non acute issues; Hx celiac disease - gluten free diet GERD - continue ranitidine VTE Prophylaxis - Heparin 5000 units Q8H SQ, patient currently refusing but is young and ambulatory therefore low risk Code - Full Disposition - Replace Phos and Mg overnight with oral and IV medications, keep inpatient as risk of hypophosphatemia with increasing food and insulin intake. She is also a high risk patient due to history of laxative abuse and insulin omission, aim home tomorrow Resident Tracking Resident Involvement: Resident Care Provided Care Provided: Adult Hospital Medicine History Resident Physician Supervision Note: I was present with Dr. Gould during the history and exam. I discussed the case with the resident and agree with the findings and plan as documented in the note. Any exceptions or clarifications are listed here. Pt seen and examined at bedside. Abdominal pain resolved. Tolerating insulin pump at present with parameters. Reviewed recommendations re: rehab and laxative abuse w/ friend present at patient's request and with permission to disclose psychiatry details. General Appearance: WD/WN, no apparent distress Respiratory: chest non-tender, lungs clear, normal breath sounds, no respiratory distress Cardiovascular: normal peripheral pulses, regular rate, rhythm, no edema, no murmur Gastrointestinal: normal bowel sounds, non tender, soft, no organomegaly Assessment/Plan 21 y/o female h/o type 1 DM presents with DKA DKA in the setting of type 1 DM, uncontrolled w/ gastroparesis - insulin mgmt by pump, repeat BMP and CBC at 1700 Laxative abuse - encouraged seeking of therapy and rehab for underlying issue Hypokalemia - replete and recheck BMP in AM Hypomagnesemia - replete, recheck in AM Hypophosphatemia - replete, recheck in AM Anxiety - ativan PRN Dispo: discharge when BMP Mg/PO4 stable, likely AM
[2016-08-04 00:13] VITALS: BP 120/80; PULSE 62; TEMP 36.8; O2SAT 99
[2016-08-04] MEDS: NovoLOG INSULIN PUMP SCH ×2 (06:30→11:00)
[2016-08-04 07:47] LABS: BLOOD UREA NITROGEN 5 mg/dl (7-18); BUN/CREATININE RATIO 11.1 (10-20); CALCIUM 7.7 mg/dl (8.5-10.1); CARBON DIOXIDE 25 mmol/L (21-32); CHLORIDE 115 mmol/L (98-107); CREATININE 0.46 mg/dl (0.60-1.20); GLUCOSE 54 mg/dl (70-99); MAGNESIUM 1.9 mg/dl (1.8-2.4); POTASSIUM 3.2 mmol/L (3.5-5.1); SODIUM 148 mmol/L (136-145)
[2016-08-04 07:56] LABS: PHOSPHORUS 3.9 mg/dl (2.5-4.9)
[2016-08-04 08:00] VITALS: BP 101/64; PULSE 66; TEMP 36.6; O2SAT 98
[2016-08-04] MEDS: MAGNESIUM OXIDE 400 MG TAB PO SCH (08:17)
[2016-08-04] MEDS: CALCIUM 600MG + VIT D 400 IU TAB PO SCH (08:17)
[2016-08-04] MEDS: POT PHOSPHATE MONOBASIC W/ SOD TAB PO SCH ×2 (08:17→12:20)
--- NOTE | 2016-08-04 12:48 | Discharge Summary ---
Discharge Summary Date of Service Aug 04, 2016. Discharge Summary Admission Date: Jul 31, 2016 at 19:27 Discharge Date: Aug 03, 2016 Discharge Disposition: Home Principal Diagnosis: Diabetic ketoacidosis Procedures: None Vaccinations: None Consultations: None Medication Reconciliation Continued Medications: Albuterol Hfa (Ventolin Hfa) 200 Puffs/06572 Mcg Aers 2 PUFFS INH UD PRN for Prior to Exercise INHALE 2 PUFFS 30 MINUTES PRIOR TO EXERCISE Control Pills ( Control Pills) Tab 1 TAB PO DAILY, TAB Calcium Carbonate (Calcium) 500 Mg Chw 2000 MG PO DAILY Epinephrine (Epipen) 0.3 Mg/0.3 Ml Inj 0.3 MG IM UD PRN for ALLERGIC REACTION Ergocalciferol (Vitamin D) 50,000 Interunit Cap 42891 INTER.UNIT PO Q2 WEEKS Glucagon (Glucagon Emergency Kit) 1 Mg Kit 1 MG INJ UD PRN for HYPOGLYCEMIA PROTOCOL Insulin Aspart (novoLOG INSULIN PUMP ) 1 Ea Inj 1 EA N/A UD, EA Lorazepam (Lorazepam) 0.5 Mg Tab 0.5 MG PO DAILY PRN for Anxiety Multiple Vitamins W/ Minerals (Airborne Gummies) 1 Chw Chw 2 TABS PO DAILY Ondansetron (Ondansetron HCl) 8 Mg Tab 8 MG PO Q8 PRN for Nausea Polyethylene (Polyethylene Glycol 3350) 527 Gm Soln 17 GM PO DAILY PRN for Constipation MIX 1 CAPFUL (17GM) IN 8 OUNCES OF WATER, JUICE, OR TEA AND DRINK DAILY IF NEEDED Ranitidine HCl (Ranitidine HCl) 150 Mg Tab 150-300 MG PO HS Admission Information HPI (per Admitting provider): 21-year-old female with history of insulin dependent diabetes presented to the emergency department after she noted elevated blood sugar readings in the setting of a recent upper respiratory tract infection.. Upon arrival to the emergency department her blood sugars found to be 688 mm grams per deciliter. The patient complained of generalized weakness. Her lab work was consistent with diabetic ketoacidosis and she was subsequently admitted to the hospital. In the emergency department she was treated with 2 L of normal saline bolus. The blood sugar as noted was greater than 600 with an elevated anion gap and a positive beta hydroxybutyrate. She was given 10 units of regular insulin which brought her blood sugars to less than 400 mg/dL. She was then converted back to her insulin pump however her blood glucose levels became elevated; she was re -bolused with 1 L of normal saline and admitted to the ICU. Hospital Course The patient was admitted to the intensive care unit. Insulin infusion was started and her gap closed. Electrolytes were closely monitored and she was transferred to the general medical floor. After being transferred to the general medical floor, the patient describes some generalized abdominal pain and nausea. There is difficulty obtaining IV access and as a result a midline was placed. Dr. Knight discussed with patient in detail her history of insulin omission and laxative use. The patient stated that she has omitted doses of insulin repeatedly in the past because of concern regarding gaining weight, and this has resulted in admissions for ketonuria in the past. She also reported near daily laxative use as both a patch for the gastroparesis and an effort to control her weight. She stated that her habits and focus on body image resulted from her care as a child when her parents would use laxatives to ameliorate the symptoms of hyperglycemia and she believes that if she were to be thin and happy and have friends, she wouldn't have diabetes any more. She was encouraged her to modify these behaviors and discussed at length their potential consequences. 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 The patient's magnesium, phosphorus, and potassium were supplemented. Her abdominal discomfort resolved and she began consuming her usual meals without any nausea or vomiting. On the day of discharge, she denied complaints. She did note that her menstrual cycle began overnight but otherwise she was feeling quite well. Adjustments were made to her insulin pump; basal rate is the same but she now will get 1 unit for every 50 mg/dL over her target versus the 1 unit for 80 mg/ dL prior to admission. The patient is comfortable with this change. She has all the necessary supplies and testing of Jodi at home to continue close monitoring. Additionally the patient has an appointment with her endocrinology office next Saturday; this is a previously scheduled appointment but also cervical hospital follow-up. We discussed the signs and symptoms of both hypoglycemia and hyperglycemia and the need to return to the emergency department. I also discussed the need to follow-up with her primary care physician, consider possible referral to the eating disorders clinic at the [facility]. Total time spent on discharge = This includes examination of the patient, discharge planning, medication reconciliation, and communication with other providers. Discharge Instructions As noted above Follow-up with endocrinology on Saturday of next week. Lab work Saturday or Saturday of next week to include a basic metabolic profile, magnesium, and phosphorus.
[2016-08-04 13:22] VITALS: BP 101/64; PULSE 66; TEMP 36.6; O2SAT 98
[2017-02-10] MEDS ORDERED: GLGKIT INJ (15:25)
[2017-02-10] MEDS ORDERED: RANI150T2 PO (15:25)
[2017-02-10] MEDS ORDERED: ONDA-63 PO (15:25)
[2017-02-10] MEDS ORDERED: LINA1CAP PO (16:44)
[2017-02-10] MEDS ORDERED: EPP3/2 IM (17:13)
[2017-02-10] MEDS ORDERED: VNTHFA/IN INH (18:16)
[2017-02-10] MEDS ORDERED: INSPMPNVLG (18:16)
== END 2016-08-04 13:45 | disposition home or self-care (01) | DRG 638 ==
LOC: ENRESERVTM → ENRESERVDT → C.EDB 17:19 → C.EDINP 19:27 → EEVIPCON 19:27 → C.MED 08-01 01:31 → C.MSICU 08-01 11:28 → EDBEDREQSVC 08-01 11:37 → C.4E 08-02 21:14
PROVIDERS: ADMIT Hospitalist; ATTEND Family Medicine
PROC: 05H533Z Insertion of Infusion Device into Right Subclavian Vein, Percutaneous Approach (ICD-10-PCS; principal; 2016-08-02)
DX: E10.10 Type 1 diabetes mellitus with ketoacidosis without coma (principal); E87.1 Hypo-osmolality and hyponatremia; J06.9 Acute upper respiratory infection, unspecified; E87.5 Hyperkalemia; E87.6 Hypokalemia; E83.42 Hypomagnesemia; E83.39 Other disorders of phosphorus metabolism; R00.0 Tachycardia, unspecified; K52.9 Noninfective gastroenteritis and colitis, unspecified; E10.43 Type 1 diabetes mellitus with diabetic autonomic (poly)neuropathy; K31.84 Gastroparesis; K90.0 Celiac disease; K21.9 Gastro-esophageal reflux disease without esophagitis; J45.909 Unspecified asthma, uncomplicated; M85.80 Other specified disorders of bone density and structure, unspecified site; F41.9 Anxiety disorder, unspecified; F60.3 Borderline personality disorder; F31.9 Bipolar disorder, unspecified; F55.2 Abuse of laxatives; Z53.29 Procedure and treatment not carried out because of patient's decision for other reasons; Z91.14 Patient's other noncompliance with medication regimen; Z96.41 Presence of insulin pump (external) (internal); Z87.891 Personal history of nicotine dependence; Z79.3 Long term (current) use of hormonal contraceptives; Z79.899 Other long term (current) drug therapy

== ENCOUNTER → 2016-08-06 | Outpatient (CLI) | payer OTHER ==
[~2016-08-06] MED LIST changes: +ATV5X PO; +BCPILLS PO; +CALC500C73 PO; +CHOL1CAP85 PO; +EPP3/2 IM; +ERGO500037 PO; +GLGKIT INJ; +INSPMPNVLG; -INSPMPNVLG SQ; +LINA1CAP PO; -LORA-741 PO; -LXT PO; +MRLP527 PO; +MULT1CHW44 PO; +ONDA-63 PO; +RANI150T2 PO; +SIME80CH PO; +SIME80CH12 PO; +VITAMIN D2 PO; +VNTHFA/IN INH; +VTMD PO; +ZLF/50 PO; +[UNRECOGNIZED DRUG - REMARK] INH
[2016-08-06 19:36] LABS: BLOOD UREA NITROGEN 13 mg/dl (7-18); BUN/CREATININE RATIO 20.3 (10-20); CALCIUM 8.3 mg/dl (8.5-10.1); CARBON DIOXIDE 29 mmol/L (21-32); CHLORIDE 105 mmol/L (98-107); CREATININE 0.64 mg/dl (0.60-1.20); GLUCOSE 109 mg/dl (70-99); MAGNESIUM 1.7 mg/dl (1.8-2.4); PHOSPHORUS 3.4 mg/dl (2.5-4.9); POTASSIUM 3.6 mmol/L (3.5-5.1); SODIUM 144 mmol/L (136-145)
== END | disposition home or self-care (01) ==
LOC: C.LAB 17:46
PROVIDERS: ATTEND Family Medicine
DX: E11.9 Type 2 diabetes mellitus without complications (principal)

== ENCOUNTER → 2016-11-21 | Outpatient (CLI) | payer OTHER ==
[2016-11-21 12:36] LABS: BLOOD UREA NITROGEN 8 mg/dl (7-18); BUN/CREATININE RATIO 11.1 (10-20); CALCIUM 8.8 mg/dl (8.5-10.1); CARBON DIOXIDE 28 mmol/L (21-32); CHLORIDE 105 mmol/L (98-107); CREATININE 0.76 mg/dl (0.60-1.20); GLUCOSE 302 mg/dl (70-99); POTASSIUM 4.5 mmol/L (3.5-5.1); SODIUM 137 mmol/L (136-145)
[2016-11-21 12:48] LABS: BETA-HYDROXYBUTYRATE 1.22 mg/dL (0.2-2.81)
[2016-11-21 13:01] LABS: ESTIMATED AVERAGE GLUCOSE 194 mg/dl; HA1C FLAG Normal (Normal)
[2016-11-21 13:08] LABS: RATIO 11.8 mcg/mg (0-30.0)
--- NOTE | 2016-11-29 12:14 | CODING QUERY MEDICAL NECESSITY ---
CQSUPPORTING DIAGNOSIS NEEDED A supporting diagnosis is required for the test/procedure performed on this patient in order for us to be reimbursed by the patient's insurance. Please provide a supporting diagnosis for the following test/procedure listed below next to the test name along with your signature. *If there is no additional diagnosis for this patient that would support the following test/procedure please document that below next to the test/procedure. Test(s)/Procedure(s) that require a supporting diagnosis: DOS 11/21/16 GLYCATED HEMOGLOBIN TEST ORDERED BY OZIEL MURRAY Provider Signature: Date: Thank you Ebonie Santillan Health Information Management Once completed, please kindly fax back to [phone] For questions please call [phone]
--- NOTE | 2016-11-29 12:19 | CODING QUERY MEDICAL NECESSITY ---
CQSUPPORTING DIAGNOSIS NEEDED A supporting diagnosis is required for the test/procedure performed on this patient in order for us to be reimbursed by the patient's insurance. Please provide a supporting diagnosis for the following test/procedure listed below next to the test name along with your signature. *If there is no additional diagnosis for this patient that would support the following test/procedure please document that below next to the test/procedure. Test(s)/Procedure(s) that require a supporting diagnosis: DOS 11/21/16 VITAMIN D TEST ORDERED BY OZIEL FAJARDO Provider Signature: Date: Thank you Ebonie Santillan Health Information Management Once completed, please kindly fax back to [phone] For questions please call [phone]
== END | disposition home or self-care (01) ==
LOC: C.LAB1850 10:53
PROVIDERS: ATTEND Physician Assistant
DX: E10.9 Type 1 diabetes mellitus without complications (principal); K76.89 Other specified diseases of liver; K90.0 Celiac disease; E55.9 Vitamin D deficiency, unspecified

== ENCOUNTER → 2016-11-22 | Outpatient (CLI) | payer OTHER ==
[~2016-11-22] MED LIST changes: +GADOXETATE DISODIUM (NON-WT BASED PROCEDURE) IV PRN
--- NOTE | 2016-11-22 21:09 | DIAGNOSTIC IMAGING REPORT ---
MRI OF THE ABDOMEN WITH AND WITHOUT CONTRAST LIVER PROTOCOL CLINICAL HISTORY: Focal nodular hyperplasia. COMPARISON STUDY: MRI of the abdomen October 31, [address] of the abdomen and pelvis April 10, 2016. TECHNIQUE: Utilizing a 1.5 Mabel magnet and dedicated coil, multiplanar, multiecho imaging of the abdomen was performed pre and postcontrast administration. Injection of 10 cc of Eovist IV was uneventful. Post contrast imaging was performed with dynamic enhancement. 20 minute delayed phase imaging was performed. FINDINGS: The liver morphology is normal. A 1.6 cm lesion along the falciform ligament which demonstrates loss of signal on the out of phase sequence is unchanged and consistent with focal fat. No hypervascular hepatic lesions are identified. The hypervascular focus shown on December 24, 2014 is not hypervascular on this exam. A subtle hypointense focus within segment 4 is shown on axial image 31 of 88 on the arterial phase sequence. This is less conspicuous than on exam of October 31, 2015. This is isointense to the remainder of the liver on the other pulsing sequences and has benign imaging characteristics. This is isointense to liver on the 20 minute delayed phase images. There is no biliary or pancreatic ductal dilatation. The spleen, adrenal glands and pancreas are normal. There is no abdominal adenopathy or ascites. IMPRESSION: 1. No suspicious hepatic lesions. 2. 1.6 cm lesion along the falciform ligament which is unchanged and reflects focal fat. 3. The previously described segment 4 focus is less conspicuous on this exam and does not appear to represent focal nodular hyperplasia. This has benign characteristics. No further imaging follow-up for the liver is necessary. Electronically signed by: Allen Rodríguez M.D. 11/22/2016 9:07 PM Dictated Date/Time: 11/22/2016 8:46 PM
== END ==
LOC: C.MRI 18:06
PROVIDERS: ATTEND Physician Assistant
DX: K76.89 Other specified diseases of liver (principal)

== ENCOUNTER 2016-11-27 15:43 | Emergency (ER) | payer OTHER ==
[~2016-11-27] VITALS: Ht 162.6 cm; Wt 58.1 kg
[~2016-11-27 15:43] MED LIST changes: -CHOL1CAP85 PO; -EPP3/2 IM; -ERGO500037 PO; -GADOXETATE DISODIUM (NON-WT BASED PROCEDURE) IV PRN; -GLGKIT INJ; -INSPMPNVLG; -LINA1CAP PO; -ONDA-63 PO; -RANI150T2 PO; -SIME80CH PO; -SIME80CH12 PO; -VITAMIN D2 PO; -VNTHFA/IN INH; -ZLF/50 PO; -[UNRECOGNIZED DRUG - REMARK] INH
[2016-11-27 15:48] VITALS: TEMP 36.7; Ht 162.6 cm; Wt 58.1 kg
[2016-11-27] MEDS ORDERED: SODIUM CHLORIDE 0.9% 1000ML 1,000 ML IV STA ×2 (16:10→17:56)
[2016-11-27] MEDS ORDERED: SODIUM CHLORIDE 0.9% 1000ML 1,000 ML IV ONE (16:10)
--- NOTE | 2016-11-27 16:17 | EMERGENCY ROOM VISIT NOTE ---
History First contact with patient: 15:56 Chief Complaint: HYPERGLYCEMIA Stated Complaint: HYPERGLYCEMIA Z600 - KETOSIS - HEARTBURN - NAUSEA History of Present Illness The patient is a 21 year old female who presents to the Emergency Room with complaints of hyperglycemia. The patient has a history of diabetes. She states that she has an insulin pump. The patient states that her blood sugar read high this morning and she had breakfast and took her insulin and showered and it still read high. She used her ketone test strips at home and states it was positive. This prompted her to come to the emergency department. The patient has a history of medication noncompliance. She was admitted in July for DKA. She states that on the 5th of this month she was discharged from an inpatient stay for an eating disorder at [place]. She admits that she is not 100% compliant with her insulin. She denies any suicidal or homicidal ideation. She denies any fevers. She denies any abdominal pain, nausea or vomiting. Review of Systems A 10 system review of systems was completed with positives and pertinent negatives listed in the HPI. Past Medical/Surgical History Medical Problems: (1) Anxiety (2) Bipolar 1 disorder (3) Celiac disease (4) Type I diabetes mellitus Surgical Problems: (1) Hx of cataract surgery Family History Cancer Diabetes mellitus FHx: celiac disease Gallbladder disease Heart disease Hypertension Seizures Social History Smoking Status: Never Smoker Alcohol Use: none Drug Use: none Marital Status: single Housing Status: lives with roommate Occupation Status: student Current/Historical Medications Scheduled Calcium Carbonate (Calcium), 2,000 MG PO DAILY Ergocalciferol (Vitamin D 79736 Unit), 50,000 UNIT PO [id number] Insulin Aspart (novoLOG INSULIN PUMP ), 1 EA N/A UD Linaclotide (Linzess), 145 MCG PO QAM Multiple Vitamins W/ Minerals (Airborne Gummies), 2 TABS PO DAILY Ranitidine HCl (Ranitidine HCl), 150-300 MG PO HS Simethicone (Gas-X), 80 MG PO PC & HS [Vitamin D2], 1.25 MG PO WK Scheduled PRN Albuterol Hfa (Ventolin Hfa), 2 PUFFS INH UD PRN for Prior to Exercise Epinephrine (Epipen), 0.3 MG IM UD PRN for ALLERGIC REACTION Glucagon (Glucagon Emergency Kit), 1 MG INJ UD PRN for HYPOGLYCEMIA PROTOCOL Lorazepam (Lorazepam), 0.5 MG PO DAILY PRN for Anxiety Ondansetron (Ondansetron HCl), 8 MG PO Q8 PRN for Nausea Physical Exam Vital Signs Date Time Temp Pulse Resp B/P (MAP) Pulse Ox O2 Delivery O2 Flow Rate FiO2 11/27/16 19:30 93 100/67 98 Room Air 11/27/16 18:01 81 16 112/67 100 Room Air 11/27/16 17:24 77 16 Room Air 11/27/16 17:22 67 11/27/16 15:48 36.7 92 18 120/76 96 Room Air Physical Exam VITALS: Vitals are noted on the nurse's note and reviewed by myself. Vital signs stable. GENERAL: This is a 21-year-old female, in no acute distress, nondiaphoretic, well-developed well-nourished. SKIN: The skin was without rashes, erythema, edema, or bruising. There is no tenting of the skin. Capillary reflex less than 2 seconds. HEAD: Normocephalic atraumatic. EARS: The external ears are normal in appearance. EYES: Pupils equal round and reactive to light and accommodation. Conjunctivae without injection, sclerae without icterus. Extraocular movements intact. NOSE: Patent, turbinates without inflammation or discharge. MOUTH: Mucous membranes moist. Airway patent. Tongue does not deviate. NECK: Supple without nuchal rigidity. No JVD. HEART: Regular rate and rhythm without murmurs gallops or rubs. LUNGS: Clear to auscultation bilaterally without wheezes, rales or rhonchi. No retractions or accessory muscle use. ABDOMEN: Positive bowel sounds x 4. Soft, nontender, without masses or organomegaly. Benedict sign negative. MUSCULOSKELETAL: No muscle atrophy, erythema, or edema noted. Full range of motion in all extremities. Strength 5/5 throughout. NEURO: Patient was alert and oriented to person place and time. No focal neurological deficits. Medical Decision & Procedures ER Provider Diagnostic Interpretation: CHEST ONE VIEW PORTABLE CLINICAL HISTORY: 21 years-old Female presenting with hyperglycemia. TECHNIQUE: Portable upright AP view of the chest was obtained. COMPARISON: 07/31/2016. FINDINGS: Cardiomediastinal silhouette normal. Lungs and pleural spaces clear. Osseous structures and upper abdomen normal. IMPRESSION: 1. No acute cardiopulmonary disease. Laboratory Results 11/27/16 16:52 Red Blood Count 4.40, Mean Corpuscular Volume 89.8, Mean Corpuscular Hemoglobin 30.5, Mean Corpuscular Hemoglobin Concent 33.9, Mean Platelet Volume 12.0, Neutrophils (%) (Auto) 81.6, Lymphocytes (%) (Auto) 11.9, Monocytes (%) (Auto) 5.6, Eosinophils (%) (Auto) 0.2, Basophils (%) (Auto) 0.4, Neutrophils # (Auto) 8.90, Lymphocytes # (Auto) 1.30, Monocytes # (Auto) 0.61, Eosinophils # (Auto) 0.02, Basophils # (Auto) 0.04 11/27/16 16:52 Test 11/27/16 16:45 11/27/16 16:52 11/27/16 17:48 11/27/16 19:01 Urine Color YELLOW Urine Appearance CLEAR (CLEAR) Urine pH 6.0 (4.5-7.5) Urine Specific Stanton 1.028 (1.000-1.030) Urine Protein NEG (NEG) Urine Glucose (UA) 3+ (NEG) Urine Ketones 2+ (NEG) Urine Occult Blood NEG (NEG) Urine Nitrite NEG (NEG) Urine Bilirubin NEG (NEG) Urine Urobilinogen NEG (NEG) Urine Leukocyte Esterase NEG (NEG) Urine WBC (Auto) 1-5 /hpf (0-5) Urine RBC (Auto) 0-4 /hpf (0-4) Urine Hyaline Casts (Auto) 1-5 /lpf (0-5) Urine Epithelial Cells (Auto) 10-20 /lpf (0-5) Urine Bacteria (Auto) NEG (NEG) White Blood Count 10.90 K/uL (4.8-10.8) Red Blood Count 4.40 M/uL (4.2-5.4) Hemoglobin 13.4 g/dL (12.0-16.0) Hematocrit 39.5 % (37-47) Mean Corpuscular Volume 89.8 fL (80-100) Mean Corpuscular Hemoglobin 30.5 pg (25-34) Mean Corpuscular Hemoglobin Concent 33.9 g/dl (32-36) Platelet Count 184 K/uL (130-400) Mean Platelet Volume 12.0 fL (7.4-10.4) Neutrophils (%) (Auto) 81.6 % Lymphocytes (%) (Auto) 11.9 % Monocytes (%) (Auto) 5.6 % Eosinophils (%) (Auto) 0.2 % Basophils (%) (Auto) 0.4 % Neutrophils # (Auto) 8.90 K/uL (1.4-6.5) Lymphocytes # (Auto) 1.30 K/uL (1.2-3.4) Monocytes # (Auto) 0.61 K/uL (0.11-0.59) Eosinophils # (Auto) 0.02 K/uL (0-0.5) Basophils # (Auto) 0.04 K/uL (0-0.2) RDW Standard Deviation 41.1 fL (36.4-46.3) RDW Coefficient of Variation 12.5 % (11.5-14.5) Immature Granulocyte % (Auto) 0.3 % Immature Granulocyte # (Auto) 0.03 K/uL (0.00-0.02) Anion Gap 8.0 mmol/L (3-11) Est Creatinine Clear Calc Drug Dose 76.2 ml/min Estimated GFR () 92.6 Estimated GFR (Non- 79.9 BUN/Creatinine Ratio 17.9 (10-20) Calcium Level 9.0 mg/dl (8.5-10.1) Total Bilirubin 1.9 mg/dl (0.2-1) Aspartate Amino Transf (AST/SGOT) 23 U/L (15-37) Alanine Aminotransferase (ALT/SGPT) 19 U/L (12-78) Alkaline Phosphatase 92 U/L (45-117) Total Protein 7.2 gm/dl (6.4-8.2) Albumin 3.9 gm/dl (3.4-5.0) Globulin 3.3 gm/dl (2.5-4.0) Albumin/Globulin Ratio 1.2 (0.9-2) Beta-Hydroxybutyric Acid 18.64 mg/dL (0.2-2.81) Chemistry Specimen Hemolysis Arterial Blood pH 7.42 (7.35-7.45) Arterial Blood Partial Pressure CO2 32 mmHg (35-46) Arterial Blood Partial Pressure O2 113 mm/Hg (80-95) Arterial Blood HCO3 20 mmol/L (19-24) Arterial Blood Oxygen Saturation 98.3 % (90-95) Arterial Blood Base Excess -3.5 mEq/L (-9-1.8) Arterial Blood Gas Delivery ROOM AIR Todd Test POS (POS) Bedside Glucose 345 mg/dl (70-90) Medications Administered Medications (Trade) Dose Ordered Sig/Freddy Route Start Time Stop Time Status Last Admin Dose Admin Sodium Chloride 1,000 ml @ 0 mls/hr Q0M ONCE IV 11/27/16 16:10 11/27/16 16:13 DC 11/27/16 17:16 9,999 MLS/HR Sodium Chloride 1,000 ml @ 999 mls/hr Q1H1M STAT IV 11/27/16 16:10 11/27/16 17:10 DC 11/27/16 17:15 999 MLS/HR Insulin Human Regular (novoLIN-R U-100 PER UNIT) 10 units NOW STAT IV 11/27/16 16:54 11/27/16 16:55 DC 11/27/16 17:15 10 UNITS Sodium Chloride 1,000 ml @ 999 mls/hr Q1H1M STAT IV 11/27/16 17:56 11/27/16 18:56 DC 11/27/16 17:56 999 MLS/HR Insulin Human Regular (novoLIN-R U-100 PER UNIT) 10 units NOW STAT SC 11/27/16 17:56 11/27/16 17:57 DC 11/27/16 18:09 10 UNITS Procedure The patient was monitored on a landscape laborer. They maintained a normal sinus rhythm without ectopy. ECG Indication: nausea Rate (beats per minute): 64 Rhythm: normal sinus Findings: no acute ischemic change Change: no significant change ED Course The patient was seen and examined. Previous visits were reviewed. The patient does not have a fever. She is a very mild leukocytosis of 10.9. She does not have any significant electrolyte abnormality. Beta hydroxybutyric acid was elevated 18.64. The patient's bicarbonate is normal. Her potassium is normal. Her initial glucose was 678. Urinalysis reveals 2+ urine ketones. Her pH on arterial blood gas was 7.42. The patient was hydrated with normal saline solution 2 L She was given 10 mg IV regular insulin and her glucose improved from 678-507 She was given additional 10 units subcutaneous and her glucose improved to 345 The patient is a noncompliant diabetic. She has a diagnosis of any disorder not otherwise specified. She does not take her insulin because she is concerned that it will make her gain weight. The patient is quite adamant that she is not trying to hurt herself. She does admit that she is not 100% compliant with her insulin and insulin pump. The patient does not seem to be ketotic at this time and does not have an anion gap. The patient was treated as above and her glucose had improved significantly. I am, however, concerned about the patient's noncompliance. She could not assure me that she will adhere to her regimen 100%. She was discharged discharged at the beginning of this month from an inpatient stay for her eating disorder. I discussed the case with the hospitalist service for potential admission given her hyperglycemia noncompliance. Dr. Cook evaluated the patient and felt that she is stable for discharge. The patient has her insulin pump and parts but does not have the NovoLog vial. I spoke with the pharmacist. He stated he would send the vial down. Case management had been consulted and a psychiatric evaluation was requested. At the time of sign out, psychiatric evaluation was pending. The case was signed out to Florentino Montemayor Pa-C. please see his dictation for disposition. The case was initially discussed with Dr. Escudero and then Dr. Vega who both agree with the assessment and treatment plan Medical Decision The differential diagnosis includes dehydration, urinary tract infection, DKA, medical noncompliance, hypokalemia, hyperglycemia, among others Blood Pressure Screening Patient's blood pressure: Normal blood pressure Blood pressure disposition: Did not require urgent referral Impression Primary Impression: Diabetes mellitus with hyperglycemia Additional Impression: Medical non-compliance Departure Information Referrals Tamara PalomoPJaeAJae (PCP) Patient Instructions Diabetes Half-Way Complications, ED Hyperglycemia Diabetic, My [facility] Additional Instructions Take your medication as prescribed and directed. Follow up with your family doctor and specialists Return with worsening symptoms Problem Qualifiers
[2016-11-27] MEDS ORDERED: CHOL1CAP85 PO (16:37)
[2016-11-27] MEDS ORDERED: SIME80CH PO (16:37)
[2016-11-27] MEDS ORDERED: ERGO500037 PO (16:37)
[2016-11-27] MEDS ORDERED: VITAMIN D2 PO (16:44)
--- NOTE | 2016-11-27 16:44 | DIAGNOSTIC IMAGING REPORT ---
CHEST ONE VIEW PORTABLE CLINICAL HISTORY: 21 years-old Female presenting with hyperglycemia. TECHNIQUE: Portable upright AP view of the chest was obtained. COMPARISON: 07/31/2016. FINDINGS: Cardiomediastinal silhouette normal. Lungs and pleural spaces clear. Osseous structures and upper abdomen normal. IMPRESSION: 1. No acute cardiopulmonary disease. Electronically signed by: Nayan Lin M.D. 11/27/2016 4:43 PM Dictated Date/Time: 11/27/2016 4:42 PM
[2016-11-27] MEDS ORDERED: NovoLIN-R INSULIN PER UNIT CHARGE IV STA (16:54)
[2016-11-27 16:56] LABS: URINE APPEARANCE CLEAR (CLEAR); URINE BILIRUBIN NEG (NEG); URINE COLOR YELLOW; URINE NITRITE NEG (NEG); URINE SPECIFIC GRAVITY 1.028 (1.000-1.030); UROBILINOGEN NEG (NEG); ZZUR CULT IF INDIC CLEAN CATCH NO
[2016-11-27 16:57] LABS: REVIEW REQ? NO
[2016-11-27 16:58] LABS: MANUAL MICROSCOPIC REQUIRED? NO
[2016-11-27 17:03] LABS: BASO % 0.4 %; BASO ABS # 0.04 K/uL (0-0.2); COMPLETE YES; EOS % 0.2 %; HEMATOCRIT 39.5 % (37-47); IG% 0.3 %; LYMPH % 11.9 %; MEAN CELL VOLUME 89.8 fL (80-100); MEAN CORPUSCULAR HEMOGLOBIN 30.5 pg (25-34); MEAN CORPUSCULAR HGB CONC 33.9 g/dl (32-36); MONO % 5.6 %; NEUT % 81.6 %; PLATELET COUNT 184 K/uL (130-400)
[2016-11-27 17:44] LABS: ALB/GLOB RATIO 1.2 (0.9-2); BETA-HYDROXYBUTYRATE 18.64 mg/dL (0.2-2.81); BUN/CREATININE RATIO 17.9 (10-20); POTASSIUM 4.9 mmol/L (3.5-5.1)
[2016-11-27] MEDS ORDERED: NovoLIN-R INSULIN PER UNIT CHARGE SC STA (17:56)
[2016-11-27 18:00] LABS: ARTERIAL BLD GAS O2 SATURATION 98.3 % (90-95); ARTERIAL BLOOD GAS BASE EXCESS -3.5 mEq/L (-9-1.8); ARTERIAL BLOOD GAS HCO3 20 mmol/L (19-24); ARTERIAL BLOOD GAS PO2 113 mm/Hg (80-95); ARTERIAL BLOOD GAS pH 7.42 (7.35-7.45)
[2016-11-27 18:05] LABS: ALLEN TEST POS (POS); O2 ADMINISTRATION ROOM AIR
[2016-11-27] MEDS ORDERED: INSULIN ASPART 100 UNITS/ML 3 ML PEN SC STA (19:11)
[2016-11-27] MEDS ORDERED: INSULIN ASPART 100 UNITS/ML VIAL SC SCH (19:30)
[2016-11-27 20:48] VITALS: BP 92/63; PULSE 89; O2SAT 98
[2017-02-10] MEDS ORDERED: RANI150T2 PO (15:25)
[2017-02-10] MEDS ORDERED: ONDA-63 PO (15:25)
[2017-02-10] MEDS ORDERED: GLGKIT INJ (15:25)
[2017-02-10] MEDS ORDERED: LINA1CAP PO (16:44)
[2017-02-10] MEDS ORDERED: EPP3/2 IM (17:13)
[2017-02-10] MEDS ORDERED: VNTHFA/IN INH (18:16)
[2017-02-10] MEDS ORDERED: INSPMPNVLG (18:16)
== END 2016-11-27 20:50 | disposition home or self-care (01) ==
LOC: C.EDB 15:45 → C.EDA 20:50
DX: E10.65 Type 1 diabetes mellitus with hyperglycemia (principal); F41.9 Anxiety disorder, unspecified; F31.9 Bipolar disorder, unspecified; K90.0 Celiac disease; Z83.3 Family history of diabetes mellitus; Z82.49 Family history of ischemic heart disease and other diseases of the circulatory system; Z82.0 Family history of epilepsy and other diseases of the nervous system; Z79.4 Long term (current) use of insulin

== ENCOUNTER → 2016-11-29 | Outpatient (CLI) | payer OTHER ==
[~2016-11-29] MED LIST changes: +EPP3/2 IM; +ERGO500037 PO; +GLGKIT INJ; +INSPMPNVLG; +LINA1CAP PO; -MRLP527 PO; +ONDA-63 PO; +RANI150T2 PO; +SIME80CH PO; +SIME80CH12 PO; +VITAMIN D2 PO; +VNTHFA/IN INH; -VTMD PO; +ZLF/50 PO; +[UNRECOGNIZED DRUG - REMARK] INH
== END | disposition home or self-care (01) ==
LOC: C.PAPS 15:18
PROVIDERS: ATTEND Obstetrics & Gynecology
DX: Z01.419 Encounter for gynecological examination (general) (routine) without abnormal findings (principal)

== ENCOUNTER → 2017-01-22 | Outpatient (CLI) | payer OTHER ==
[2017-01-22 10:55] LABS: BASO % 0.5 %; BASO ABS # 0.04 K/uL (0-0.2); COMPLETE YES; EOS % 1.6 %; HEMATOCRIT 42.3 % (37-47); IG% 0.1 %; LYMPH % 28.1 %; LYMPH ABS # 2.22 K/uL (1.2-3.4); MEAN CELL VOLUME 89.8 fL (80-100); MEAN CORPUSCULAR HEMOGLOBIN 31.2 pg (25-34); MEAN CORPUSCULAR HGB CONC 34.8 g/dl (32-36); MEAN PLATELET VOLUME 12.1 fL (7.4-10.4); MONO % 9.6 %; NEUT % 60.1 %; PLATELET COUNT 313 K/uL (130-400); RED BLOOD COUNT 4.71 M/uL (4.2-5.4)
[2017-01-22 11:15] LABS: BLOOD UREA NITROGEN 18 mg/dl (7-18); CALCIUM 9.1 mg/dl (8.5-10.1); CARBON DIOXIDE 28 mmol/L (21-32); CHLORIDE 102 mmol/L (98-107); GLUCOSE 179 mg/dl (70-99); POTASSIUM 4.3 mmol/L (3.5-5.1); SODIUM 137 mmol/L (136-145)
[2017-01-22 11:26] LABS: ALB/GLOB RATIO 1.1 (0.9-2); ALKALINE PHOSPHATASE 68 U/L (45-117); ALT/SGPT 17 U/L (12-78); AST/SGOT 14 U/L (15-37); CHOLESTEROL 144 mg/dl (0-200); CHOLESTEROL/HDL RATIO 2.4; HDL CHOLESTEROL 59 mg/dl; LDL CHOLESTEROL CALCULATED 59 mg/dl; TRIGLYCERIDES 129 mg/dl (0-150); VERY LOW DENSITY LIPOPROT CALC 26 mg/dl
== END | disposition home or self-care (01) ==
LOC: C.LABBC 07:17
PROVIDERS: ATTEND Physician Assistant
DX: Z00.00 Encounter for general adult medical examination without abnormal findings (principal); E10.9 Type 1 diabetes mellitus without complications; K90.0 Celiac disease; E55.9 Vitamin D deficiency, unspecified; M85.80 Other specified disorders of bone density and structure, unspecified site; E80.4 Gilbert syndrome

== ENCOUNTER 2017-02-10 21:04 | Emergency (ER) | payer OTHER ==
[~2017-02-10] VITALS: Ht 162.6 cm; Wt 56.4 kg
[~2017-02-10 21:04] MED LIST changes: -BCPILLS PO; -SIME80CH12 PO; -ZLF/50 PO; -[UNRECOGNIZED DRUG - REMARK] INH
[2017-02-10 21:15] VITALS: Ht 162.6 cm; Wt 56.4 kg
[2017-02-10] MEDS ORDERED: SODIUM CHLORIDE 0.9% 1000ML 1,000 ML, SODIUM CHLORIDE 0.9% 1000ML 1,000 ML IV ONE (22:00)
[2017-02-10 22:16] LABS: URINE APPEARANCE CLEAR (CLEAR); URINE BILIRUBIN NEG (NEG); URINE COLOR YELLOW; URINE NITRITE NEG (NEG); URINE PH 5.5 (4.5-7.5); URINE SPECIFIC GRAVITY 1.039 (1.000-1.030); UROBILINOGEN NEG (NEG); ZZUR CULT IF INDIC CLEAN CATCH NO
[2017-02-10 22:19] LABS: MANUAL MICROSCOPIC REQUIRED? NO; REVIEW REQ? NO
[2017-02-10 22:26] LABS: BASO % 0.4 %; BASO ABS # 0.03 K/uL (0-0.2); COMPLETE YES; EOS % 0.6 %; HEMATOCRIT 37.8 % (37-47); IG% 0.2 %; LYMPH % 16.1 %; LYMPH ABS # 1.32 K/uL (1.2-3.4); MEAN CELL VOLUME 88.1 fL (80-100); MEAN CORPUSCULAR HGB CONC 35.2 g/dl (32-36); MEAN PLATELET VOLUME 11.4 fL (7.4-10.4); NEUT % 73.7 %; PLATELET COUNT 265 K/uL (130-400); RED BLOOD COUNT 4.29 M/uL (4.2-5.4); WHITE BLOOD COUNT 8.19 K/uL (4.8-10.8)
[2017-02-10 22:51] LABS: BUN/CREATININE RATIO 21.1 (10-20); CALCIUM 9.1 mg/dl (8.5-10.1); CREATININE 0.92 mg/dl (0.60-1.20); POTASSIUM 4.2 mmol/L (3.5-5.1)
[2017-02-10] MEDS ORDERED: ZLF/50 PO (22:54)
[2017-02-10] MEDS ORDERED: SIME80CH12 PO (22:54)
[2017-02-10] MEDS ORDERED: BCPILLS PO (22:54)
[2017-02-10 22:55] LABS: VENOUS BLOOD GAS PCO2 37 mmHg (38.0-50.0); VENOUS BLOOD GAS PO2 22 mmHg
[2017-02-10] MEDS ORDERED: [UNRECOGNIZED DRUG - REMARK] INH (22:55)
[2017-02-10 22:57] LABS: VEN BLD GAS O2 SATURATION < 60.0 %
[2017-02-10 23:02] LABS: BETA-HYDROXYBUTYRATE 16.02 mg/dL (0.2-2.81)
[2017-02-10] MEDS ORDERED: NovoLIN-R INSULIN PER UNIT CHARGE IV STA (23:37)
[2017-02-11 00:52] VITALS: BP 95/65; PULSE 78; TEMP 37; O2SAT 99
--- NOTE | 2017-02-11 04:16 | EMERGENCY ROOM VISIT NOTE ---
History First contact with patient: 21:45 Chief Complaint: HYPERGLYCEMIA Stated Complaint: HYPERGLYCEMIA, LG KETONES, MILD NAUSEA, UTI? Nursing Triage Summary: Pt reports she has an Insulin pump. She thinks the injection site bent today and now her Blood sugar is 598. Pt has ketones and does not feel good. History of Present Illness The patient is a 21 year old female who presents to the Emergency Room with complaints of elevated blood sugar at home. The patient is a type I diabetic and uses an insulin pump. The patient changed her site first thing this morning , and started feeling well this evening. She reports excessive urination and thirst. The patient checked her blood sugar tonight about one hour ago, and states it was 598. She replaced the tubing and site of her insulin pump, which appears to be functioning appropriately. The patient has not had recent fever or chills. No recent illness. She rates her current discomfort a 2/10. Review of Systems More than 10 systems were reviewed and otherwise negative with the exception of history of present illness. Past Medical/Surgical History Medical Problems: (1) Anxiety (2) Bipolar 1 disorder (3) Celiac disease (4) Type I diabetes mellitus Surgical Problems: (1) Hx of cataract surgery Family History Cancer Diabetes mellitus FHx: celiac disease Gallbladder disease Heart disease Hypertension Seizures Social History Smoking Status: Former Smoker Alcohol Use: none Drug Use: none Marital Status: single Housing Status: lives with roommate Occupation Status: student Current/Historical Medications Scheduled Control Pills ( Control Pills), 1 TAB PO DAILY Insulin Aspart (novoLOG INSULIN PUMP ), 1 EA N/A UD Linaclotide (Linzess), 145 MCG PO QAM Ranitidine HCl (Ranitidine HCl), 300 MG PO HS Sertraline HCl (Sertraline HCl), 50 MG PO HS Simethicone (Mylicon), 80 MG PO PCHS [Unknown Inhaler], 2 PUFFS INH QAM Scheduled PRN Albuterol Hfa (Ventolin Hfa), 2 PUFFS INH UD PRN for Prior to Exercise Epinephrine (Epipen), 0.3 MG IM UD PRN for ALLERGIC REACTION Glucagon (Glucagon Emergency Kit), 1 MG INJ UD PRN for HYPOGLYCEMIA PROTOCOL Ondansetron (Ondansetron HCl), 8 MG PO Q8 PRN for Nausea Physical Exam Vital Signs Date Time Temp Pulse Resp B/P (MAP) Pulse Ox O2 Delivery O2 Flow Rate FiO2 02/11/17 00:52 37.0 78 18 95/65 99 02/10/17 22:52 80 18 117/70 97 Room Air 02/10/17 21:15 37.0 106 20 106/70 97 Room Air Physical Exam VITALS: Vitals are noted on the nurse's note and reviewed by myself. Vital signs stable. GENERAL: Well-developed, well-nourished, white female, who is in no acute distress and resting comfortably. Patient is cooperative with the examination. MOUTH: Mucous membranes mildly dry. Tonsils are not enlarged. Pharynx without erythema, blood, or exudate. Uvula midline. Airway patent. NECK: Supple without nuchal rigidity. No lymphadenopathy. No thyromegaly. Cervical spine is nontender. HEART: Regular rate and rhythm without murmurs gallops or rubs. LUNGS: Clear to auscultation bilaterally without wheezes, rales or rhonchi. No retractions or accessory muscle use. ABDOMEN: Positive normal bowel sounds x 4. Soft, nontender, without masses or organomegaly. No guarding or rebound tenderness. MUSCULOSKELETAL: No muscle atrophy, erythema, or edema noted. Full range of motion without joint tenderness in all extremities. No tenderness to palpation. Normal gait. Strength 5/5 throughout. Medical Decision & Procedures Laboratory Results 02/10/17 22:10 Red Blood Count 4.29, Mean Corpuscular Volume 88.1, Mean Corpuscular Hemoglobin 31.0, Mean Corpuscular Hemoglobin Concent 35.2, Mean Platelet Volume 11.4, Neutrophils (%) (Auto) 73.7, Lymphocytes (%) (Auto) 16.1, Monocytes (%) (Auto) 9.0, Eosinophils (%) (Auto) 0.6, Basophils (%) (Auto) 0.4, Neutrophils # (Auto) 6.03, Lymphocytes # (Auto) 1.32, Monocytes # (Auto) 0.74, Eosinophils # (Auto) 0.05, Basophils # (Auto) 0.03 02/10/17 22:10 Test 02/10/17 22:05 02/10/17 22:10 02/10/17 22:48 02/11/17 00:20 Urine Color YELLOW Urine Appearance CLEAR (CLEAR) Urine pH 5.5 (4.5-7.5) Urine Specific [place] 1.039 (1.000-1.030) Urine Protein NEG (NEG) Urine Glucose (UA) 3+ (NEG) Urine Ketones 3+ (NEG) Urine Occult Blood NEG (NEG) Urine Nitrite NEG (NEG) Urine Bilirubin NEG (NEG) Urine Urobilinogen NEG (NEG) Urine Leukocyte Esterase NEG (NEG) Urine Test NEG (NEG) White Blood Count 8.19 K/uL (4.8-10.8) Red Blood Count 4.29 M/uL (4.2-5.4) Hemoglobin 13.3 g/dL (12.0-16.0) Hematocrit 37.8 % (37-47) Mean Corpuscular Volume 88.1 fL (80-100) Mean Corpuscular Hemoglobin 31.0 pg (25-34) Mean Corpuscular Hemoglobin Concent 35.2 g/dl (32-36) Platelet Count 265 K/uL (130-400) Mean Platelet Volume 11.4 fL (7.4-10.4) Neutrophils (%) (Auto) 73.7 % Lymphocytes (%) (Auto) 16.1 % Monocytes (%) (Auto) 9.0 % Eosinophils (%) (Auto) 0.6 % Basophils (%) (Auto) 0.4 % Neutrophils # (Auto) 6.03 K/uL (1.4-6.5) Lymphocytes # (Auto) 1.32 K/uL (1.2-3.4) Monocytes # (Auto) 0.74 K/uL (0.11-0.59) Eosinophils # (Auto) 0.05 K/uL (0-0.5) Basophils # (Auto) 0.03 K/uL (0-0.2) RDW Standard Deviation 37.5 fL (36.4-46.3) RDW Coefficient of Variation 11.7 % (11.5-14.5) Immature Granulocyte % (Auto) 0.2 % Immature Granulocyte # (Auto) 0.02 K/uL (0.00-0.02) Anion Gap 9.0 mmol/L (3-11) Est Creatinine Clear Calc Drug Dose 82.9 ml/min Estimated GFR () 102.4 Estimated GFR (Non- 88.4 BUN/Creatinine Ratio 21.1 (10-20) Calcium Level 9.1 mg/dl (8.5-10.1) Total Bilirubin 2.0 mg/dl (0.2-1) Aspartate Amino Transf (AST/SGOT) 20 U/L (15-37) Alanine Aminotransferase (ALT/SGPT) 21 U/L (12-78) Alkaline Phosphatase 81 U/L (45-117) Total Protein 7.7 gm/dl (6.4-8.2) Albumin 3.8 gm/dl (3.4-5.0) Globulin 3.9 gm/dl (2.5-4.0) Albumin/Globulin Ratio 1.0 (0.9-2) Lipase 142 U/L (73-393) Beta-Hydroxybutyric Acid 16.02 mg/dL (0.2-2.81) Venous Blood pH 7.43 (7.36-7.41) Venous Blood Partial Pressure CO2 37 mmHg (38.0-50.0) Venous Blood Partial Pressure O2 22 mmHg Venous Blood HCO3 24 mmol/L Venous Blood Oxygen Saturation < 60.0 % Venous Blood Base Excess 0.0 mEq/L Bedside Glucose 251 mg/dl (70-90) Medications Administered Medications (Trade) Dose Ordered Sig/Freddy Route Start Time Stop Time Status Last Admin Dose Admin Sodium Chloride/ Sodium Chloride 2,000 ml @ 999 mls/hr Q2H1M ONCE IV 02/10/17 22:00 02/11/17 00:00 DC 02/10/17 22:13 999 MLS/HR Insulin Human Regular (novoLIN-R U-100 PER UNIT) 10 units NOW STAT IV 02/10/17 23:37 02/10/17 23:38 DC 02/10/17 23:43 10 UNITS ED Course Physical exam and history were performed. Nursing notes, EMR, and Medication List were personally reviewed. Patient appears to have elevated glucose levels at home after malfunction of her insulin pump. The patient does not appear toxic on examination. IV access was established and labs were obtained. The patient was hydrated with 2 L normal saline. The patient's blood work is as above and was reviewed. She had initial bed side glucose levels greater than 500. She does not have a significant elevated white blood cell count or additional gross electrolyte imbalance. She was not acidotic, but was ketotic. Because of this we did provide her 10 mg IV regular insulin. Recheck of her sugar showed a decrease to the mid 200s. Overall the patient does appear well for discharge home. She had been monitored for sometime here in the department and I suspect her elevated blood sugar is secondary to the insulin pump malfunction. The patient is to follow with her primary care physician with any ongoing symptoms. She was otherwise invited back to the ER with any new, worsening, or concerning symptoms. The chart was completed utilizing [employer] Speech Voice Recognition Software. Grammatical errors, random word insertions, pronoun errors, and incomplete sentences are an occasional consequence of this system due to software limitations, ambient noise, and hardware issues. Any formal questions or concerns about the content, text, or information contained within the body of this dictation should be directly addressed to the provider for clarification. . Medical Decision Differential diagnosis: Etiologies such as metabolic, infection, hypo/hyperglycemia, electrolyte abnormalities, cardiac sources, intracerebral event, toxicologic, neurologic, as well as others were entertained. Impression Primary Impression: Hyperglycemia Departure Information Dispostion Home / Self-Care Condition GOOD Forms HOME CARE DOCUMENTATION FORM, School Instructions, Additional Instructions: Patient was seen and evaluated in the emergency department for medica care. Return to school on 02/12/2017. Please excuse. IMPORTANT VISIT INFORMATION Patient Instructions My [facility] Additional Instructions You were seen and evaluated today on an emergency basis only. This is not a substitute for, or an effort to provide, complete comprehensive medical care. It is not possible to recognize and treat all injuries or illnesses in a single emergency department visit. For this reason it is recommended that you followup with your primary care physician this week for ongoing care and evaluation. Continue to monitor your blood glucose at home. Drink plenty of water and remain well hydrated. You are welcome to return to the emergency department anytime with new, worsening, or concerning symptoms. School Instructions Additional School Instructions: Patient was seen and evaluated in the emergency department for medical care. Return to school on 02/12/2017. Please excuse.
== END 2017-02-11 00:52 | disposition home or self-care (01) ==
LOC: C.EDB 21:06 → C.EDC 02-11 00:52
DX: T85.614A Breakdown (mechanical) of insulin pump, initial encounter (principal); Y84.8 Other medical procedures as the cause of abnormal reaction of the patient, or of later complication, without mention of misadventure at the time of the procedure; E10.65 Type 1 diabetes mellitus with hyperglycemia; K90.0 Celiac disease; F41.9 Anxiety disorder, unspecified; F31.9 Bipolar disorder, unspecified; Z96.41 Presence of insulin pump (external) (internal); Z98.49 Cataract extraction status, unspecified eye; Z80.9 Family history of malignant neoplasm, unspecified; Z82.49 Family history of ischemic heart disease and other diseases of the circulatory system; Z82.0 Family history of epilepsy and other diseases of the nervous system; Z87.891 Personal history of nicotine dependence; Z79.4 Long term (current) use of insulin; Z79.899 Other long term (current) drug therapy

== ENCOUNTER → 2017-02-20 | Outpatient (CLI) | payer OTHER ==
[~2017-02-20] MED LIST changes: -ATV5X PO; +BCPILLS PO; -CALC500C73 PO; -ERGO500037 PO; -MULT1CHW44 PO; -SIME80CH PO; +SIME80CH12 PO; -VITAMIN D2 PO; +ZLF/50 PO; +[UNRECOGNIZED DRUG - REMARK] INH
[2017-02-20 11:50] LABS: THYROID STIMULATING HORMONE 2.65 uIu/ml (0.300-4.500)
[2017-02-20 12:20] LABS: ESTIMATED AVERAGE GLUCOSE 209 mg/dl; HA1C FLAG Normal (Normal)
[2017-02-21 14:22] LABS: MICROSOMAL AB 2 IU/ML (<9)
== END | disposition home or self-care (01) ==
LOC: C.LABBC 08:18
PROVIDERS: ATTEND Physician Assistant
DX: E10.9 Type 1 diabetes mellitus without complications (principal)

== ENCOUNTER → 2017-03-21 | Outpatient (CLI) | payer OTHER | END | disposition home or self-care (01) | LOC: C.MAMM 07:48 | PROVIDERS: ATTEND Physician Assistant | DX: K90.0 Celiac disease (principal); M85.89 Other specified disorders of bone density and structure, multiple sites ==

== ENCOUNTER 2017-04-30 12:45 | Emergency (ER) | payer OTHER ==
[~2017-04-30] VITALS: Ht 162.6 cm; Wt 57.3 kg
[~2017-04-30 12:45] MED LIST changes: -SIME80CH12 PO; +SIME80CH13 PO
[2017-04-30 13:07] VITALS: Ht 162.6 cm; Wt 57.3 kg
[2017-04-30] MEDS ORDERED: GI COCKTAIL PO ONE (14:15)
[2017-04-30] MEDS ORDERED: ALUMINUM/MAGNESIUM SUSP 30 ML UDC ONE (14:16)
[2017-04-30] MEDS ORDERED: LIDOCAINE HCL 2% VISC SOLN 20 ML UDC ONE (14:17)
[2017-04-30] MEDS ORDERED: MOME16.7 INH (14:37)
[2017-04-30] MEDS ORDERED: NAPR1TAB9 PO (14:37)
[2017-04-30] MEDS ORDERED: CLR10 PO (14:37)
[2017-04-30] MEDS ORDERED: CALC600T37 PO (14:37)
[2017-04-30] MEDS ORDERED: LINA72CA PO (14:37)
[2017-04-30] MEDS ORDERED: ZLF/100 PO (14:37)
--- NOTE | 2017-04-30 14:40 | DIAGNOSTIC IMAGING REPORT ---
LEFT FOOT 3 VIEWS HISTORY: L 2nd and 5th toe pain COMPARISON: None. FINDINGS: There is no fracture or dislocation. Soft tissues are unremarkable. No radiopaque foreign bodies. No erosions identified. The Lisfranc joint is intact. IMPRESSION: Unremarkable left foot. Electronically signed by: Roger Myrick M.D. 04/30/2017 2:38 PM Dictated Date/Time: 04/30/2017 2:29 PM
[2017-04-30 16:02] VITALS: BP 88/57; PULSE 97; TEMP 36.7; O2SAT 96
--- NOTE | 2017-05-01 10:40 | EMERGENCY ROOM VISIT NOTE ---
ED Visit Note First contact with patient: 13:57 Chief Complaint: Left toe pain. History of Present Illness: Ms. Cota is a 21-year-old white female who ambulates into the ED complaining of left second and fifth toe pain and heartburn. Patient reports that yesterday she dropped a wine bottle on her left second toe and then a few hours later she stopped the fifth toe on a piece of furniture. She goes on to report that since her injuries she is taken 4 Aleve tablets for her pain. Then as she was getting in the car to come to the hospital she developed heartburn; she describes this as an epigastric burning sensation that goes through the chest and into the posterior pharyngeal area. Currently she describes her toe pain as a sharp and throbbing sensations over both toes. She rates her discomfort 4/10. Her pain is nonradiating. Her pain worsens with the push off phase of ambulation and palpation. She has not identified any alleviating factors related to the pain. She denies any associated ankle pain, other foot pain, toe weakness/numbness/tingling. Currently she describes her burning sensation as previously noted in the epigastric area extending into the posterior pharyngeal area. She rates this discomfort 6/10. She has not identified any aggravating or alleviating factors related to this discomfort. She has not taken any medication for this discomfort prior to arrival at the hospital. She denies any associated symptoms including fevers, chills, sweats, skin eruptions, skin color changes, upper respiratory tract symptoms, difficulty swallowing, voice changes, cough, wheezing, shortness of breath, nausea, vomiting. Review of Systems: As noted above in history of present illness. 8 body systems were reviewed and found to be negative as noted above. Past Medical History: Celiac disease, gastroparesis, diabetes, asthma, pneumonia , dyspepsia, anxiety, bipolar disorder, unspecified eye surgery. Current Medications: Medications Dose Route/Sig Max Daily Dose Days Date Category Dose Instructions Aleve (Naproxen) 220 Mg Tab 440 Mg PO DAILY PRN 04/30/17 Reported Claritin (Loratadine) 10 Mg Tab 10 Mg PO DAILY 04/30/17 Reported Calcium 600 Mg Tab 600 Mg PO DAILY 04/30/17 Reported Asmanex Hfa (Mometasone Furoate (Inhalation) 100 Mcg/Act Aer 1 Puff INH DAILY PRN 04/30/17 Reported Linzess (Linaclotide) 72 Mcg Cap 72 Mcg PO DAILY 04/30/17 Reported Sertraline HCl 100 Mg Tab 100 Mg PO DAILY 04/30/17 Reported Control Pills (Miscellaneous) Tab 1 Tab PO DAILY 02/10/17 Reported novoLOG INSULIN PUMP (Insulin Aspart) 1 Ea Inj 1 Ea N/A UD 07/31/16 Reported Ventolin Hfa (Albuterol) 200 Puffs/51073 Mcg Aers 2 Puffs INH UD PRN 07/31/16 Reported INHALE 2 PUFFS 30 MINUTES PRIOR TO EXERCISE Ranitidine HCl 150 Mg Tab 150 Mg PO HS 12/31/15 Reported Glucagon Emergency Kit (Glucagon) 1 Mg Kit 1 Mg INJ UD PRN 12/31/15 Reported Epipen (Epinephrine) 0.3 Mg/0.3 Ml Inj 0.3 Mg IM UD PRN 12/23/14 Reported Allergies to Medications: Penicillin, oxcarbazepine. Social History: Patient is not employed; she feels safe in her home environment ; she denies tobacco use and admits to alcohol use. Physical Examination: Vital Signs: Date Time Temp Pulse Resp B/P (MAP) Pulse Ox O2 Delivery O2 Flow Rate FiO2 04/30/17 16:02 36.7 97 14 88/57 96 04/30/17 13:32 36.7 97 14 88/57 96 Room Air 04/30/17 13:07 36.7 97 14 120/83 96 Room Air GENERAL: 21-year-old female in mild distress due to pain, nontoxic-appearing, afebrile and hemodynamically stable. NEUROLOGICAL: Awake, alert and oriented to person, place and time. Answering questions appropriately and following commands. Normal gait. Good hand eye coordination. SKIN: Warm, dry and pink. No soft tissue open trauma noted. HEENT: Atraumatic and normocephalic. No drainage from naris. Oral cavity moist and pink. Airway patent. Uvula is midline. Pharynx is nonerythematous or edematous. Speech normal. No lymphadenopathy. Trachea midline. No jugular venous distention. THORAX: Lungs sounds are clear to auscultation and equal bilaterally with symmetrical chest wall. No wheezing, rales or rhonchi. HEART: Regular rate and rhythm. No gallops, rubs or murmurs are appreciated. ABDOMEN: Flat and soft with mild tenderness in the epigastric area. Positive bowel sounds in all quadrants. No guarding, rigidity or organomegaly. EXTREMITIES: Moves all extremities well on command and with purpose. All distal neurovascular statuses are intact and equal bilaterally. No calf tenderness or cords. Left Foot: No gross bony deformities. Mild tenderness over the second toe with a small blood blister on the tip of the toe. Mild tenderness over the PIP and DIP joints without bony deformity or crepitus. Skin was warm and pink and capillary refill was brisk and she was able to distinguish light sensations through all dermatomes of the toe. Fifth toe shows no gross bony deformities. There is tenderness throughout the toe with mild swelling but no bruising. I do not appreciate any bony crepitus. Skin was warm and pink and capillary refill is brisk. She is able to distinguish light sensations through all dermatomes of the little toe. ED Course: Patient is assessed as noted above. Patient's medication list was reviewed. Left Foot X-Rays: Was read by myself and the radiologist showing no acute fractures or dislocations. Patient was given a GI cocktail for her heartburn; she was offered Tylenol for her other pain and refused. Patient was placed in a postop shoe. Patient was educated about today's findings and instructed on her treatment plan ; she verbalized understanding and agreement with this plan. Clinical Impression: Pain in the left toes. Gastric reflux. Disposition: Patient discharged home in stable condition; prior to departure she was feeling much better and rated her overall discomfort 1/10. Plan: Patient was encouraged use 650 mg of acetaminophen every 6 hours as needed for pain in the avoid NSAIDs as well as other stomach irritants. Patient was encouraged to continue her ranitidine as prescribed. Other comfort measures including ice, rest and postop shoe were discussed with the patient. Patient was encouraged to follow-up with her PCP and/or her step down specialist for her reflux. Patient was encouraged to follow-up with business development specialist if no improvement over toe pain in 6-7 days. Patient was encouraged return ED for worsening toe pain, worsening reflux, abdominal pain, vomiting, bloody stools, bloody vomiting or any new/concerning symptoms.
== END 2017-04-30 16:03 | disposition home or self-care (01) ==
LOC: C.EDB 12:47 → C.EDD 16:03
DX: M79.675 Pain in left toe(s) (principal); K21.9 Gastro-esophageal reflux disease without esophagitis; E11.9 Type 2 diabetes mellitus without complications; K90.0 Celiac disease; F31.9 Bipolar disorder, unspecified; J45.909 Unspecified asthma, uncomplicated; Z79.3 Long term (current) use of hormonal contraceptives; Z79.4 Long term (current) use of insulin; Z79.899 Other long term (current) drug therapy; Z87.01 Personal history of pneumonia (recurrent); Z87.19 Personal history of other diseases of the digestive system

== ENCOUNTER → 2017-05-29 | Outpatient (CLI) | payer OTHER ==
[~2017-05-29] MED LIST changes: +CALC600T37 PO; +CLR10 PO; -LINA1CAP PO; +LINA72CA PO; +MOME16.7 INH; +NAPR1TAB9 PO; -ONDA-63 PO; -SIME80CH13 PO; +ZLF/100 PO; -ZLF/50 PO; -[UNRECOGNIZED DRUG - REMARK] INH
[2017-05-30 06:46] LABS: HEMOGLOBIN A1C 11.9 % (4.5-5.6)
== END | disposition home or self-care (01) ==
LOC: C.LAB1850 16:37
PROVIDERS: ATTEND Physician Assistant Medical
DX: E10.9 Type 1 diabetes mellitus without complications (principal); E55.9 Vitamin D deficiency, unspecified

== ENCOUNTER → 2017-08-27 | Outpatient (CLI) | payer OTHER ==
[2017-08-27 09:58] LABS: HEMOGLOBIN A1C 11.4 % (4.5-5.6)
== END | disposition home or self-care (01) ==
LOC: C.LAB 07:48
PROVIDERS: ATTEND Physician Assistant
DX: E10.65 Type 1 diabetes mellitus with hyperglycemia (principal)

== ENCOUNTER → 2017-11-21 | Outpatient (CLI) | payer OTHER ==
[~2017-11-21] MED LIST changes: +ALBU18002 INH; +CHOL2000 PO; +FLUT0.15 INH; +GADAVIST IV PRN; +LORA-741 PO; -MOME16.7 INH; -NAPR1TAB9 PO; +ONDA8TAB12 PO; +PRLSR20 PO; +PROP1TAB PO
--- NOTE | 2017-11-21 09:34 | DIAGNOSTIC IMAGING REPORT ---
MRI OF THE BRAIN WITHOUT AND WITH IV CONTRAST CLINICAL HISTORY: Headaches. History of head trauma. COMPARISON STUDY: Head CT November 15, 2017. TECHNIQUE: Utilizing a 1.5 Mabel magnet and dedicated coil, multiplanar, multiecho imaging of the brain was performed pre and postcontrast administration. IV administration of 6 mL of Gadavist contrast was uneventful. FINDINGS: There are no foci of restricted diffusion. No acute intracranial hemorrhage, midline shift or mass effect is present. Brain volume is normal. Ventricular system is normal. Basilar cisterns are patent. Flow-voids for the major intracranial vessels are present. There is no intracranial mass or pathologic enhancement. Note is made of a 4 mm T2 hyperintense focus within the right matter of the right frontal lobe shown on coronal FLAIR image . No additional foci of signal abnormality are present. No intracranial masses noted. Note is made of a developmental venous anomaly within the right internal capsule. Calvarial signal is maintained. Orbits and sinuses are unremarkable. There is no fluid within mastoid air cells. IMPRESSION: 1. No acute intracranial findings. 2. No intracranial mass. 3. Developmental venous anomaly within the right internal capsule, a finding of no clinical significance. 4. Punctate white matter T2 hyperintense focus within the right frontal lobe which is of doubtful significance. Electronically signed by: Allen Rodríguez M.D. 11/21/2017 9:33 AM Dictated Date/Time: 11/21/2017 9:23 AM
== END | disposition home or self-care (01) ==
LOC: C.MRIBC 08:36
PROVIDERS: ATTEND Physician Assistant
DX: R51 Headache (principal)

== ENCOUNTER → 2017-11-27 | Outpatient (CLI) | payer OTHER ==
[~2017-11-27] MED LIST changes: -GADAVIST IV PRN
--- NOTE | 2017-11-27 13:04 | DIAGNOSTIC IMAGING REPORT ---
Nuclear gastric emptying study: CLINICAL HISTORY: Diabetic gastroparesis associated with type 1 diabetes. COMPARISON STUDY: Gastric emptying study December 14, 2015. TECHNIQUE: Following the oral administration of 1.1 mCi of technetium 99m sulfur colloid in egg sandwich and 8 ounces of water, static abdominal images were obtained anteriorly and posteriorly at 0 minutes, 1 hour, 2 hour, and 4 hour time intervals. Gastric emptying was calculated utilizing the geometric mean method. FINDINGS: There is approximately 75% gastric activity remaining at the 1 hour time interval (normal is less than 90%), 40% at the 2 hour time interval (normal is less than 60%), and 4% remaining at the 4 hour time interval (normal is less than 10%). IMPRESSION: No evidence for delayed gastric emptying. Electronically signed by: Allen Rodríguez M.D. 11/27/2017 1:03 PM Dictated Date/Time: 11/27/2017 1:02 PM
== END | disposition home or self-care (01) ==
LOC: C.NUCL 08:14
PROVIDERS: ATTEND Physician Assistant
DX: E10.43 Type 1 diabetes mellitus with diabetic autonomic (poly)neuropathy (principal)

== ENCOUNTER → 2017-12-19 | Outpatient (CLI) | payer OTHER ==
[2017-12-20 06:36] LABS: HEMOGLOBIN A1C 10.7 % (4.5-5.6)
== END | disposition home or self-care (01) ==
LOC: C.LABBC 14:18
PROVIDERS: ATTEND Physician Assistant
DX: E10.65 Type 1 diabetes mellitus with hyperglycemia (principal)

== ENCOUNTER → 2017-12-27 | Outpatient (CLI) | payer OTHER ==
--- NOTE | 2017-12-27 12:05 | DIAGNOSTIC IMAGING REPORT ---
LUMBAR SPINE W/O CONTRAST CLINICAL HISTORY: 22 years-old Female presenting with M54.16 Lumbar radiculopathy. TECHNIQUE: Multisequence, multiplanar MR imaging of the lumbar spine was performed without the use of intravenous contrast. IV contrast: None. COMPARISON: CT of abdomen pelvis from 04/10/2016. FINDINGS: Localizer images: Unremarkable. Normal lumbar lordosis. Vertebral bodies maintain normal height, alignment, and bone marrow signal intensity. Intervertebral discs preserved. No annular fissures. No disc bulges. No neural foraminal or spinal canal narrowing. No epidural collection. Spinal cord ends in good position at the superior endplate of L1. Cauda equina normal in morphology. Paraspinal musculature normal without evidence of edema. Remaining visualized structures demonstrate a suspected small intramural uterine fibroid. Moderate stool burden in the rectum. IMPRESSION: Normal MR examination of the lumbar spine. No spinal canal or neural foraminal stenosis. Electronically signed by: Nayan Lin M.D. 12/27/2017 12:04 PM Dictated Date/Time: 12/27/2017 11:59 AM
--- NOTE | 2017-12-27 12:38 | DIAGNOSTIC IMAGING REPORT ---
MRI OF THE CERVICAL SPINE WITHOUT IV CONTRAST CLINICAL HISTORY: Cervical radiculopathy. COMPARISON STUDY: No priors. TECHNIQUE: MRI of the cervical spine is performed utilizing various T1 and T2 sequences in the axial and sagittal planes. IV contrast was not administered for this examination. FINDINGS: Cervical spine: Vertebral body height and alignment are maintained throughout the cervical spine. Normal marrow signal intensity is preserved throughout the visualized bony structures. The atlantodental articulation is maintained. The spinous processes are intact. No destructive osseous lesion is seen. Intervertebral discs: Normal in height and signal intensity. Spinal cord: The cervical spinal cord is normal in morphology and signal intensity. C2-C3: Unremarkable. C3-C4: Unremarkable. C4-C5: Unremarkable. C5-C6: Unremarkable. C6-C7: Unremarkable. C7-T1: Unremarkable. Soft tissues: The prevertebral and paraspinous soft tissues are normal in appearance. Brain parenchyma: The partially imaged brain parenchyma at the skull base is within normal limits. IMPRESSION: 1. There is no disc herniation, central canal stenosis, or neural foraminal narrowing seen throughout the cervical spine. 2. No destructive bony process is identified. Dictated: 12/27/2017 11:54 AM Transcribed: 12/27/2017 12:37 PM LAUR[facility] Electronically signed by: Mick Jin M.D. 12/27/2017 12:47 PM Dictated Date/Time: 12/27/2017 11:54 AM
== END | disposition home or self-care (01) ==
LOC: C.MRIBC 10:02
PROVIDERS: ATTEND Physician Assistant
DX: M54.16 Radiculopathy, lumbar region (principal)

== ENCOUNTER 2019-04-25 18:09 | Inpatient (IN) ==
[2019-04-25] MEDS ORDERED: SODIUM CHLORIDE 0.9% 1000ML 1,000 ML IV ONE (18:31)
[2019-04-25] MEDS ORDERED: ONDANSETRON INJ 2 MG/ML 2 ML VIAL IV STA (18:31)
[2019-04-25 18:59] LABS: Appearance Urine Clear (Clear); Bilirubin Urine Negative (Negative); Blood Urine Negative (Negative); Color Urine Yellow; Glucose Urine UA 3+ (Negative); Leukocyte Esterase Urine Negative (Negative); Nitrite Urine Negative (Negative); Protein Urine Negative (Negative); Specific Gravity Urine 1.035 (1.000-1.030); Urobilinogen Urine Negative (Negative)
[2019-04-25] MEDS ORDERED: NovoLIN-R INSULIN PER UNIT CHARGE IV STA (19:09)
[2019-04-25 19:13] LABS: Basophils # (auto) 0.05 K/uL (0-0.2); Basophils % (auto) 0.7 %; Eosinophils # (auto) 0.12 K/uL (0-0.5); Eosinophils % (auto) 1.6 %; Immature Granulocytes # (auto) 0.01 K/uL (0.00-0.02); Immature Granulocytes % (auto) 0.1 %; Lymphocytes # (auto) 2.02 K/uL (1.2-3.4); Lymphocytes % (auto) 27.3 %; Mean Corpuscular Hemoglobin 30.5 pg (25-34); Mean Corpuscular Hgb Conc 34.7 g/dL (32-36); Mean Platelet Volume 10.9 fL (7.4-10.4); Monocytes # (auto) 0.77 K/uL (0.11-0.59); Monocytes % (auto) 10.4 %; Neutrophils # (auto) 4.42 K/uL (1.4-6.5); Neutrophils % (auto) 59.9 %; Platelet Count 340 K/uL (130-400); RDW Coefficient of Variation 11.9 % (11.5-14.5); RDW Standard Deviation 38.1 fL (36.4-46.3); White Blood Count 7.39 K/uL (4.8-10.8)
[2019-04-25 19:17] LABS: Pregnancy Test, Urine Negative (Negative)
[2019-04-25 19:21] LABS: Ketones Urine 4+ (Negative)
[2019-04-25 19:40] LABS: Alanine Aminotransferase 22 U/L (12-78); Albumin Globulin Ratio 0.8 (0.9-2); Albumin Level 3.6 gm/dl (3.4-5.0); Alkaline Phosphatase 123 U/L (45-117); Aspartate Aminotransferase 13 U/L (15-37); Blood Urea Nitrogen 16 mg/dl (7-18); Calcium 9.4 mg/dl (8.5-10.1); Carbon Dioxide 17 mmol/L (21-32); Chloride 99 mmol/L (98-107); Globulin 4.3 gm/dl (2.5-4.0); Glucose 496 mg/dl (70-99); Lipase 102 U/L (73-393); Potassium 4.3 mmol/L (3.5-5.1); Sodium 130 mmol/L (136-145); Total Protein 7.9 gm/dl (6.4-8.2)
[2019-04-25] MEDS ORDERED: ED DKA INSULIN DRIP ONE (19:46)
[2019-04-25] MEDS ORDERED: GLUCOSE 40% GEL 15 GM TUBE PO PRN ×2 (19:46→22:45)
[2019-04-25] MEDS ORDERED: GLUCAGON FOR INJ 1 MG VIAL SQ PRN (19:46)
[2019-04-25] MEDS ORDERED: GLUCOSE 10 TABS/TUBE PO PRN ×2 (19:46→22:45)
[2019-04-25] MEDS ORDERED: DEXTROSE 50% 50 ML SYRINGE IV PRN ×2 (19:46→22:45)
[2019-04-25] MEDS ORDERED: CARBOHYDRATES FOR HYPOGLYCEMIA PO PRN ×2 (19:46→22:45)
[2019-04-25] MEDS ORDERED: DKA GOAL RANGE 150-250 mg/dl ONE ×2 (19:46→22:09)
[2019-04-25] MEDS ORDERED: SODIUM CHLORIDE 0.9% 1000ML 1,000 ML IV SCH (20:15)
[2019-04-25] MEDS: INSULIN REGULAR 250 UNITS in SODIUM CHLORIDE 0.9% 247.5 ML IV SCH (20:16)
[2019-04-25 20:58] LABS: Magnesium 1.4 mg/dl (1.8-2.4)
[2019-04-25] MEDS ORDERED: INSULIN ASPART 100 UNITS/ML 3 ML PEN SC SCH (21:00)
[2019-04-25 21:01] LABS: Base Excess VBG -8.3 mEq/L; HCO3 VBG 17 mmol/L; Oxygen Saturation VBG < 60.0 %; PCO2 VBG 36 mmHg (38-50); PO2 VBG 69 mmHg
[2019-04-25] MEDS ORDERED: PENDING 1/2NSS+20mEq KCL IVF SCH (22:00)
[2019-04-25] MEDS ORDERED: PENDING D5 1/2NS+20mEq KCL IVF SCH (22:00)
--- NOTE | 2019-04-25 22:07 | History & Physical Report ---
Date of Service April 25, 2019 Assessment & Plan (1) DKA (diabetic ketoacidosis): Patient with type 1 diabetes, insulin pump in place, presenting with DKA. pH = 7.3, anion gap = 14, blood sugar on arrival = 496. Patient appears comfortable and is relatively asymptomatic. She is afebrile and hemodynamically stable, nontoxic in appearance. Admit to PCU Continue IV fluid with Normosol at 125 mL/h Insulin drip per DKA protocol Q. hourly blood glucose monitoring Labs every 4 hours to monitor gap Consult diabetes education Present on Admission?: Yes (2) Gastroparesis: Patient with history of gastroparesis secondary to her diabetes. She reports that her symptoms are typically relieved with Zofran. She does not seem to be on any promotility agents at home. Continue Zofran as needed Consider Reglan as needed if nausea persists Present on Admission?: Yes (3) Depression with anxiety: Patient reports history of depression, anxiety and borderline personality disorder as well as body image issues with an active eating disorder. She is in therapy for these issues. -Continue home Ativan 0.5mg po daily. It does not appear that patient is on a SSRI/SNRI or mood stabilizer. -Continued Psychiatric followup Present on Admission?: Yes (4) Chronic constipation: Chronic. Patient with recent diarrhea We will hold Linzess for now as patient has been having diarrhea Continue to monitor Present on Admission?: Yes (5) Asthma: Patient with history of asthma. Presently denies cough/shortness of breath. Pulmonary exam is unremarkable Continue loratadine daily Continue albuterol as needed Present on Admission?: Yes (6) Acid reflux disease: Chronic. Stable. Continue omeprazole p.o. daily F/E/N -hydration with Normosol, monitor electrolytes and replete as needed, n.p.o. for now Prophylaxislow risk for DVT Codefull Dispositionadmit to PCU Present on Admission?: Yes History of Present Illness Chief Complaint: DKA Primary Care Provider: Tamara Palomo PA-C [place] is a 23-year-old female with history of type 1 d iabetes presenting with DKA. Patient states that she woke Saturday morning at 0300 with nausea/vomiting and diarrhea. Symptoms persisted throughout the day. She took Zofran and diclofenac for pain. She reports increased thirst as well as persistent nausea as well as increased nausea after meals. Diarrhea has resolved. Patient has history of gastroparesis and restricts herself largely to pured diet with minced meats. She had a continuous glucose monitor in the past however, that is no longer in place. She reports that there was a delay in the delivery of her diabetic testing supplies, therefore, she was unable to check her blood sugar since Saturday. She has an insulin pump in place and reports that she has given herself a couple extra boluses of insulin over the last few days. She presents today in mild DKA. Blood sugar = 496, anion gap = 14, beta hydroxybutyrate positive at 43.1. UA is positive for glucose and ketones. Patient with poorly controlled diabetes, last hemoglobin A1c = 12.8 ER course: Insulin drip and normal saline solution Allergies Allergy/AdvReac Type Severity Reaction Status Date / Time cashew nut Allergy Severe ANAPHYLAXIS Verified 04/25/19 18:41 gluten Allergy Severe CELIAC'S Verified 04/25/19 18:41 DISEASE peanut Allergy Severe ANAPHYLAXIS Verified 04/25/19 18:41 Penicillins Allergy Severe ANAPHYLAXIS Verified 04/25/19 18:41 shellfish derived Allergy Severe ANAPHYLAXIS Verified 04/25/19 18:41 apple Allergy Intermediate THROAT Verified 04/25/19 18:41 SWELLS house dust Allergy Intermediate Hives Verified 04/25/19 18:41 oxcarbazepine Allergy Intermediate Rash,hives Verified 04/25/19 18:41 and itchiness. milk Allergy Unknown SENSITIVITY Verified 04/25/19 18:41 lactose AdvReac Intermediate Gatrointestinal Verified 04/25/19 18:41 Upset sumatriptan [From Imitrex] AdvReac Intermediate INTENSIFIES Verified 04/25/19 18:41 HEADACHE Home Medications Home Medications Medication Instructions Recorded Confirmed Type epinephrine 0.3 mg/0.3 mL 0.3 mg IM DIRECTED PRN 01/21/18 04/25/19 History injection, auto-injector fluticasone propionate 50 1 sprays INTNAS DAILY PRN 01/21/18 04/25/19 History mcg/actuation nasal spray,suspension lorazepam 0.5 mg tablet 0.5 mg PO DAILY 01/21/18 04/25/19 History ondansetron HCl 8 mg tablet 8 mg PO DAILY PRN tab 01/21/18 04/25/19 History diclofenac sodium 50 mg 50 mg PO DIRECTED PRN tab 01/22/18 04/25/19 History tablet,delayed release eszopiclone 1 mg tablet 1 mg PO HS PRN tab MDD 1 MG 01/22/18 04/25/19 History insulin glargine 100 unit/mL (3 19 units SQ DAILY PRN ml 11/26/18 04/25/19 History mL) subcutaneous pen vitamin E succinate 400 unit tablet 400 units PO DAILY tab 11/26/18 04/25/19 History acetone (urine) test #100 ea 03/23/19 04/22/19 Rx insulin aspart U-100 100 100 See Rx Instructions SQ DAILY #30 ml 03/23/19 04/25/19 Rx unit/mL subcutaneous solution omeprazole 40 mg PO DAILYBB 03/23/19 04/25/19 History linaclotide 145 mcg capsule 145 mcg PO DAILY #30 cap 03/24/19 04/25/19 Rx albuterol sulfate 90 mcg/actuation 2 puffs INH Q4H PRN #18 gm 03/27/19 04/25/19 Rx aerosol inhaler inhalational spacing device #1 ea 03/27/19 04/22/19 Rx cholecalciferol (vitamin D3) See Rx Instructions PO .COMPLEX 04/01/19 04/25/19 Rx 50,000 unit tablet #14 tab loratadine 10 mg tablet 10 mg PO DAILY #30 tab 04/16/19 04/25/19 Rx fluticasone propionate [Flovent 1 puff INHALATION BID 04/25/19 04/25/19 History HFA] propranolol 60 mg PO HS 04/25/19 04/25/19 History Past Med/Surg History Medical History (Updated 04/25/19 @ 22:20 by Tata Bates DO) Acid reflux disease Adverse food reaction Allergic rhinitis Anxiety (Chronic) Asthma (Chronic) Bipolar 1 disorder (Chronic) Body image disorder Borderline personality disorder Cataract (lens) fragments in eye following cataract surgery, bilateral (Acute) Cervical pain (Chronic) Cervical radiculopathy Chronic constipation Depression (Chronic) Depression with anxiety (Chronic) Diabetes Diabetes mellitus type 1, uncontrolled (Chronic) Diabetic gastroparesis associated with type 1 diabetes mellitus Gilbert's syndrome IBS (irritable bowel syndrome) Lazy eye of right side (Acute) Low bone mass (Chronic) Lumbar pain (Chronic) Lumbar radiculopathy Migraines (Chronic) Vitamin D deficiency (Chronic) Surgical History (Updated 04/25/19 @ 22:13 by Tata Bates DO) History of cataract surgery Social History Preferred Language: Croatian Communication Ability: Effective Hearing Ability: Normal Last Sorter Required: No marital status: Single Current Living Situation: Alone current occupational status: employed current occupation: Part-time- [employer] Feels Safe at Home: Yes Smoking Status: Never smoker Hx Alcohol Use: Yes (OCC) Alcohol type: beer and wine Hx Substance Use: No Review of Systems Review of Systems: All systems reviewed & are unremarkable except as noted in HPI & below Patient denies fever/chills/malaise/body aches. Denies chest pain/shortness of breath/palpitations/cough/wheeze. Denies abdominal pain. Physical Exam Physical Exam: General: patient resting comfortably, NAD, non-toxic in appearance, AA&O x 4 Skin: warm, dry, intact, no rashes or lesions HEENT: NC/AT, PERRL, EOMI, anicteric sclera, conjunctiva without injection, external ear normal to inspection and nontender, nares patent, moist mucus me mbranes, dentition intact, no oropharyngeal lesions, neck supple, trachea midline, no LAD, no thyromegaly, no JVD Heart: +S1/S2, regular, no m/r/g Lungs: equal air entry bilaterally, no rales/rhonchi/wheezes Abd: +BS, soft, NT/ND, no masses/organomegaly/ascites Ext: warm, 2+ pulses in UE/LE bilaterally, no clubbing/cyanosis or edema Neuro: nonfocal, patient AA&O x 4, speech intact, no facial droop, moving all extremities on command with equal strength 5/5 Results & Data Vital Signs (Past 12 Hours) Vital Signs Temp Pulse Pulse Resp BP BP Pulse Ox 04/25/19 21:23 97 H 18 91/66 L 97 04/25/19 20:22 83 18 98/73 L 99 04/25/19 19:10 85 16 102/67 97 04/25/19 18:35 97 04/25/19 18:13 37.1 C 99 H 16 101/67 97 Laboratory Results Lab Results 04/25/19 04/25/19 04/25/19 Range/Units 18:44 18:44 19:02 WBC (4.8-10.8) K/uL RBC (4.2-5.4) M/uL Hgb (12.0-16.0) g/dL Hct (37-47) % MCV (80-100) fL MCH (25-34) pg MCHC (32-36) g/dL RDW Std Deviation (36.4-46.3) fL RDW Coeff of Keanu (11.5-14.5) % Plt Count (130-400) K/uL MPV (7.4-10.4) fL Immature Gran % (Auto) % Neut % (Auto) % Lymph % (Auto) % [place] % (Auto) % Eos % (Auto) % Baso % (Auto) % Immature Gran # (Auto) (0.00-0.02) K/uL Neut # (Auto) (1.4-6.5) K/uL Lymph # (Auto) (1.2-3.4) K/uL [place] # (Auto) (0.11-0.59) K/uL Eos # (Auto) (0-0.5) K/uL Baso # (Auto) (0-0.2) K/uL VBG pH (7.36-7.41) VBG pCO2 (38-50) mmHg VBG pO2 mmHg VBG HCO3 mmol/L VBG O2 Saturation % VBG Base Excess mEq/L Barometric Pressure mm/Hg Sodium (136-145) mmol/L Potassium (3.5-5.1) mmol/L Chloride (98-107) mmol/L Carbon Dioxide (21-32) mmol/L Anion Gap (3-11) BUN (7-18) mg/dl Creatinine (0.6-1.2) mg/dl Est Cr Clr Drug Dosing ml/min Est GFR ( Amer) Est GFR (Non-Af Amer) BUN/Creatinine Ratio (10-20) Glucose (70-99) mg/dl POC Glucose 520 H* (70-99) Calcium (8.5-10.1) mg/dl Phosphorus (2.5-4.9) mg/dl Magnesium (1.8-2.4) mg/dl Total Bilirubin (0.2-1) mg/dl AST (15-37) U/L ALT (12-78) U/L Alkaline Phosphatase (45-117) U/L Total Protein (6.4-8.2) gm/dl Albumin (3.4-5.0) gm/dl Globulin (2.5-4.0) gm/dl Albumin/Globulin Ratio (0.9-2) Lipase (73-393) U/L Beta-Hydroxybutyric Acd (0.2-2.81) mg/dl Urine Color Yellow Urine Appearance Clear (Clear) Urine pH 5.0 (4.5-7.5) Ur Specific [place] 1.035 H (1.000-1.030) Urine Protein Negative (Negative) Urine Glucose (UA) 3+ H (Negative) Urine Ketones 4+ H (Negative) Urine Blood Negative (Negative) Urine Nitrite Negative (Negative) Urine Bilirubin Negative (Negative) Urine Urobilinogen Negative (Negative) Ur Leukocyte Esterase Negative (Negative) Urine Test Negative (Negative) 04/25/19 04/25/19 04/25/19 Range/Units 19:04 19:05 19:05 WBC 7.39 (4.8-10.8) K/uL RBC 4.65 (4.2-5.4) M/uL Hgb 14.2 (12.0-16.0) g/dL Hct 40.9 (37-47) % MCV 88.0 (80-100) fL MCH 30.5 (25-34) pg MCHC 34.7 (32-36) g/dL RDW Std Deviation 38.1 (36.4-46.3) fL RDW Coeff of Keanu 11.9 (11.5-14.5) % Plt Count 340 (130-400) K/uL MPV 10.9 H (7.4-10.4) fL Immature Gran % (Auto) 0.1 % Neut % (Auto) 59.9 % Lymph % (Auto) 27.3 % [place] % (Auto) 10.4 % Eos % (Auto) 1.6 % Baso % (Auto) 0.7 % Immature Gran # (Auto) 0.01 (0.00-0.02) K/uL Neut # (Auto) 4.42 (1.4-6.5) K/uL Lymph # (Auto) 2.02 (1.2-3.4) K/uL [place] # (Auto) 0.77 H (0.11-0.59) K/uL Eos # (Auto) 0.12 (0-0.5) K/uL Baso # (Auto) 0.05 (0-0.2) K/uL VBG pH (7.36-7.41) VBG pCO2 (38-50) mmHg VBG pO2 mmHg VBG HCO3 mmol/L VBG O2 Saturation % VBG Base Excess mEq/L Barometric Pressure mm/Hg Sodium 130 L (136-145) mmol/L Potassium 4.3 (3.5-5.1) mmol/L Chloride 99 (98-107) mmol/L Carbon Dioxide 17 L (21-32) mmol/L Anion Gap 14.0 H (3-11) BUN 16 (7-18) mg/dl Creatinine 0.87 (0.6-1.2) mg/dl Est Cr Clr Drug Dosing 86.1 ml/min Est GFR ( Amer) 108.1 Est GFR (Non-Af Amer) 93.2 BUN/Creatinine Ratio 18.0 (10-20) Glucose 496 H* (70-99) mg/dl POC Glucose 453 H* (70-99) Calcium 9.4 (8.5-10.1) mg/dl Phosphorus 4.0 (2.5-4.9) mg/dl Magnesium 1.4 L (1.8-2.4) mg/dl Total Bilirubin 1.0 (0.2-1) mg/dl AST 13 L (15-37) U/L ALT 22 (12-78) U/L Alkaline Phosphatase 123 H (45-117) U/L Total Protein 7.9 (6.4-8.2) gm/dl Albumin 3.6 (3.4-5.0) gm/dl Globulin 4.3 H (2.5-4.0) gm/dl Albumin/Globulin Ratio 0.8 L (0.9-2) Lipase 102 (73-393) U/L Beta-Hydroxybutyric Acd 43.10 H (0.2-2.81) mg/dl Urine Color Urine Appearance (Clear) Urine pH (4.5-7.5) Ur Specific [place] (1.000-1.030) Urine Protein (Negative) Urine Glucose (UA) (Negative) Urine Ketones (Negative) Urine Blood (Negative) Urine Nitrite (Negative) Urine Bilirubin (Negative) Urine Urobilinogen (Negative) Ur Leukocyte Esterase (Negative) Urine Test (Negative) 04/25/19 04/25/19 04/25/19 Range/Units 20:14 20:51 21:13 WBC (4.8-10.8) K/uL RBC (4.2-5.4) M/uL Hgb (12.0-16.0) g/dL Hct (37-47) % MCV (80-100) fL MCH (25-34) pg MCHC (32-36) g/dL RDW Std Deviation (36.4-46.3) fL RDW Coeff of Keanu (11.5-14.5) % Plt Count (130-400) K/uL MPV (7.4-10.4) fL Immature Gran % (Auto) % Neut % (Auto) % Lymph % (Auto) % [place] % (Auto) % Eos % (Auto) % Baso % (Auto) % Immature Gran # (Auto) (0.00-0.02) K/uL Neut # (Auto) (1.4-6.5) K/uL Lymph # (Auto) (1.2-3.4) K/uL [place] # (Auto) (0.11-0.59) K/uL Eos # (Auto) (0-0.5) K/uL Baso # (Auto) (0-0.2) K/uL VBG pH 7.30 L (7.36-7.41) VBG pCO2 36 L (38-50) mmHg VBG pO2 69 mmHg VBG HCO3 17 mmol/L VBG O2 Saturation < 60.0 % VBG Base Excess -8.3 mEq/L Barometric Pressure 741.8 mm/Hg Sodium (136-145) mmol/L Potassium (3.5-5.1) mmol/L Chloride (98-107) mmol/L Carbon Dioxide (21-32) mmol/L Anion Gap (3-11) BUN (7-18) mg/dl Creatinine (0.6-1.2) mg/dl Est Cr Clr Drug Dosing ml/min Est GFR ( Amer) Est GFR (Non-Af Amer) BUN/Creatinine Ratio (10-20) Glucose (70-99) mg/dl POC Glucose 358 H* 319 H* (70-99) Calcium (8.5-10.1) mg/dl Phosphorus (2.5-4.9) mg/dl Magnesium (1.8-2.4) mg/dl Total Bilirubin (0.2-1) mg/dl AST (15-37) U/L ALT (12-78) U/L Alkaline Phosphatase (45-117) U/L Total Protein (6.4-8.2) gm/dl Albumin (3.4-5.0) gm/dl Globulin (2.5-4.0) gm/dl Albumin/Globulin Ratio (0.9-2) Lipase (73-393) U/L Beta-Hydroxybutyric Acd (0.2-2.81) mg/dl Urine Color Urine Appearance (Clear) Urine pH (4.5-7.5) Ur Specific [place] (1.000-1.030) Urine Protein (Negative) Urine Glucose (UA) (Negative) Urine Ketones (Negative) Urine Blood (Negative) Urine Nitrite (Negative) Urine Bilirubin (Negative) Urine Urobilinogen (Negative) Ur Leukocyte Esterase (Negative) Urine Test (Negative) Code Status & VTE Plan Code Status Full code PG Care Time/CCT Total # of Minutes Spent Total Time Spent with Patient: Total time spent is greater than 50% in coordination of care (as documented) at patient's floor/unit and/or counseling patient: (1) DKA (diabetic ketoacidosis) Diabetes mellitus complication detail: without coma Diabetes mellitus type: type 1 Qualified Code(s): E10.10 - Type 1 diabetes mellitus with ketoacidosis without coma (2) Asthma Asthma severity: mild Asthma persistence: intermittent Asthma complication type: uncomplicated Qualified Code(s): J45.20 - Mild intermittent asthma, uncomplicated (3) Acid reflux disease Esophagitis presence: esophagitis presence not specified Qualified Code(s): K21.9 - Gastro-esophageal reflux disease without esophagitis
[2019-04-25] MEDS ORDERED: ACETAMINOPHEN 325 MG TAB PO PRN (22:09)
[2019-04-25] MEDS ORDERED: ESZOPICLONE 1 MG TAB PO PRN (22:09)
[2019-04-25] MEDS ORDERED: ONDANSETRON INJ 2 MG/ML 2 ML VIAL IV PRN (22:09)
[2019-04-25] MEDS ORDERED: INSULIN REGULAR 250 UNITS in SODIUM CHLORIDE 0.9% 247.5 ML IV SCH (22:09)
[2019-04-25] MEDS ORDERED: NORMOSOL-R 1,000 ML IV SCH (22:09)
[2019-04-25] MEDS ORDERED: FLUTICASONE PROPIONATE NA SPR 16 GM BTL NAE PRN (22:09)
[2019-04-25] MEDS ORDERED: DC ALL PREVIOUSLY ORDERED DIABETES MEDS ONE (22:09)
[2019-04-25] MEDS ORDERED: ALBUTEROL HFA 8 GM INHALER INH PRN (22:09)
[2019-04-25] MEDS ORDERED: DICLOFENAC SODIUM 25 MG TABDR PO PRN (22:27)
[2019-04-25] MEDS ORDERED: GLUCAGON FOR INJ 1 MG VIAL IM PRN (22:45)
[2019-04-25 22:48] LABS: BUN Creatinine Ratio 19.3 (10-20); Calcium 8.7 mg/dl (8.5-10.1); Creatinine Clr Calc Pharmacy 94.8 ml/min; Magnesium 1.3 mg/dl (1.8-2.4)
[2019-04-25 22:49] LABS: Phosphorus 2.5 mg/dl (2.5-4.9); Potassium 3.6 mmol/L (3.5-5.1)
[2019-04-25] MEDS: D5W AND 1/2NSS + 20MEQ KCL 20 MEQ/1,000 ML BAG IV SCH (23:14)
[2019-04-25] MEDS: FLUTICASONE HFA 220 MCG INHALER INH SCH (23:15)
[2019-04-25] MEDS: PROPRANOLOL HCL 60 MG LA CAP PO SCH (23:16)
[2019-04-25] MEDS ORDERED: MAGNESIUM SULFATE / D5W 1 GM/100 ML BAG IV ONE (23:45)
[2019-04-26 02:32] LABS: BUN Creatinine Ratio 20.8 (10-20); Blood Urea Nitrogen 13 mg/dl (7-18); Carbon Dioxide 20 mmol/L (21-32); Chloride 107 mmol/L (98-107); Glucose 240 mg/dl (70-99); Magnesium 1.6 mg/dl (1.8-2.4); Potassium 3.8 mmol/L (3.5-5.1); Sodium 135 mmol/L (136-145)
[2019-04-26 02:43] LABS: Phosphorus 3.4 mg/dl (2.5-4.9)
[2019-04-26] MEDS ORDERED: MAGNESIUM SULFATE / D5W 1 GM/100 ML BAG IV ONE (03:30)
[2019-04-26 06:35] LABS: BUN Creatinine Ratio 17.1 (10-20); Creatinine Clr Calc Pharmacy 108.6 ml/min; Est GFR (African American) 141.2; Est GFR (Non-African American) 121.8; Magnesium 1.8 mg/dl (1.8-2.4); Phosphorus 3.3 mg/dl (2.5-4.9)
[2019-04-26] MEDS: D5W AND 1/2NSS + 20MEQ KCL 20 MEQ/1,000 ML BAG IV SCH (06:38)
[2019-04-26] MEDS: PANTOprazole 40 MG TAB PO SCH (06:39)
[2019-04-26] MEDS: INSULIN ASPART 100 UNITS/ML 3 ML PEN SC SCH ×4 (08:41→21:38)
[2019-04-26] MEDS ORDERED: PHARMACY GLYCEMIC MGMT CONSULT PRN (08:58)
[2019-04-26] MEDS ORDERED: NON-FORMULARY MEDICATION (Linaclotide [Linzess] 145 MCG) PO SCH (09:00)
[2019-04-26] MEDS ORDERED: [UNRECOGNIZED DRUG - OTHER] PO SCH (09:00)
[2019-04-26] MEDS: LORazepam 0.5 MG TAB PO SCH (09:37)
[2019-04-26] MEDS: FLUTICASONE HFA 220 MCG INHALER INH SCH ×2 (09:37→21:34)
[2019-04-26] MEDS: LORATADINE 10 MG TAB PO SCH (09:37)
[2019-04-26 10:26] LABS: BUN Creatinine Ratio 14.1 (10-20); Calcium 8.2 mg/dl (8.5-10.1); Creatinine Clr Calc Pharmacy 118.9 ml/min; Est GFR (African American) 145.5; Est GFR (Non-African American) 125.5; Magnesium 1.6 mg/dl (1.8-2.4); Potassium 4.2 mmol/L (3.5-5.1)
[2019-04-26 10:27] LABS: Phosphorus 2.9 mg/dl (2.5-4.9)
[2019-04-26] MEDS ORDERED: INSULIN GLARGINE SOLOSTAR 100 UNITS/ML 3 ML PEN SC ONE (11:00)
[2019-04-26] MEDS: MAGNESIUM SULFATE / D5W 1 GM/100 ML BAG IV SCH ×4 (12:40→22:30)
--- NOTE | 2019-04-26 13:11 | Emergency Department Note ---
Entered by Kasey Sands acting as a scribe for Ryder Bryant MD History of Present Illness General Chief complaint: Nausea Stated complaint: MILD-MODERATE NAUSEA, UNABLE TO EAT OR DRINK MUCH Time Seen by Provider: 04/25/19 18:17 History of Present Illness Provider complaint: nausea Onset (ago): day(s) 3 Pain Consistency: + other (episode) Maximum Pain Intensity: 0 Quality: + other (nausea) Relieved By: + medication (Zofran) Exacerbated By: + eating Associated symptoms: + denies other symptoms (recent travel, antibiotic use, sick contact, abdominal pain, alcohol use, stream/well water ingestion), + nausea/vomiting and + other (diarrhea, concern for DKA but blood sugar was 289, not eating much, lost Zofran prescription 2 days ago) The patient is a 23 year old white female w/ PMHx of acid reflux disease, IBS, diabetes, and anxiety who presents to the ED w/ CC of an episode of nausea beginning 3 days ago. The patient states that she woke up on Saturday and had 2 episodes of vomiting and diarrhea. The patient states that she was concerned for DKA so she went to her PCP and her sugar levels were 289. The patient states that she took anti-nausea and migraine medication after her appointment and slept the rest of the day. The patient states that ever since Saturday, she has nausea that is exacerbated by eating. The patient states that she has not been eating much because she is afraid that she will vomit or have diarrhea. The patient states that Zofran has helped her nausea, but she lost her prescription while at work 2 days ago. The patient denies recent travel, antibiotic use, sick contact, abdominal pain, alcohol use and stream/well water ingestion. Home Medications Home Medications Medication Instructions Recorded Confirmed Type epinephrine 0.3 mg/0.3 mL 0.3 mg IM DIRECTED PRN 01/21/18 04/25/19 History injection, auto-injector fluticasone propionate 50 1 sprays INTNAS DAILY PRN 01/21/18 04/25/19 History mcg/actuation nasal spray,suspension lorazepam 0.5 mg tablet 0.5 mg PO DAILY 01/21/18 04/25/19 History ondansetron HCl 8 mg tablet 8 mg PO DAILY PRN tab 01/21/18 04/25/19 History diclofenac sodium 50 mg 50 mg PO DIRECTED PRN tab 01/22/18 04/25/19 History tablet,delayed release eszopiclone 1 mg tablet 1 mg PO HS PRN tab MDD 1 MG 01/22/18 04/25/19 History insulin glargine 100 unit/mL (3 19 units SQ DAILY PRN ml 11/26/18 04/25/19 History mL) subcutaneous pen vitamin E succinate 400 unit tablet 400 units PO DAILY tab 11/26/18 04/25/19 History acetone (urine) test #100 ea 03/23/19 04/22/19 Rx insulin aspart U-100 100 100 See Rx Instructions SQ DAILY #30 ml 03/23/1904/06 Rx unit/mL subcutaneous solution omeprazole 40 mg PO DAILYBB 03/23/19 04/25/19 History linaclotide 145 mcg capsule 145 mcg PO DAILY #30 cap 03/24/19 04/25/19 Rx albuterol sulfate 90 mcg/actuation 2 puffs INH Q4H PRN #18 gm 03/27/19 04/25/19 Rx aerosol inhaler inhalational spacing device #1 ea 03/27/19 04/22/19 Rx cholecalciferol (vitamin D3) See Rx Instructions PO .COMPLEX 04/01/19 04/25/19 Rx 50,000 unit tablet #14 tab loratadine 10 mg tablet 10 mg PO DAILY #30 tab 04/16/19 04/25/19 Rx fluticasone propionate [Flovent 1 puff INHALATION BID 04/25/19 04/25/19 History HFA] propranolol 60 mg PO HS 04/25/19 04/25/19 History Allergies Allergy/AdvReac Type Severity Reaction Status Date / Time cashew nut Allergy Severe ANAPHYLAXIS Verified 04/25/19 18:41 gluten Allergy Severe CELIAC'S Verified 04/25/19 18:41 DISEASE peanut Allergy Severe ANAPHYLAXIS Verified 04/25/19 18:41 Penicillins Allergy Severe ANAPHYLAXIS Verified 04/25/19 18:41 shellfish derived Allergy Severe ANAPHYLAXIS Verified 04/25/19 18:41 apple Allergy Intermediate THROAT Verified 04/25/19 18:41 SWELLS house dust Allergy Intermediate Hives Verified 04/25/19 18:41 oxcarbazepine Allergy Intermediate Rash,hives Verified 04/25/19 18:41 and itchiness. milk Allergy Unknown SENSITIVITY Verified 04/25/19 18:41 lactose AdvReac Intermediate Gatrointestinal Verified 04/25/19 18:41 Upset sumatriptan [From Imitrex] AdvReac Intermediate INTENSIFIES Verified 04/25/19 18:41 HEADACHE Past Med/Surg History Medical History (Updated 04/25/19 @ 22:20 by Tata Bates DO) Acid reflux disease Adverse food reaction Allergic rhinitis Anxiety (Chronic) Asthma (Chronic) Bipolar 1 disorder (Chronic) Body image disorder Borderline personality disorder Cataract (lens) fragments in eye following cataract surgery, bilateral (Acute) Cervical pain (Chronic) Cervical radiculopathy Chronic constipation Depression (Chronic) Depression with anxiety (Chronic) Diabetes Diabetes mellitus type 1, uncontrolled (Chronic) Diabetic gastroparesis associated with type 1 diabetes mellitus Gilbert's syndrome IBS (irritable bowel syndrome) Lazy eye of right side (Acute) Low bone mass (Chronic) Lumbar pain (Chronic) Lumbar radiculopathy Migraines (Chronic) Vitamin D deficiency (Chronic) Surgical History (Updated 04/25/19 @ 22:13 by Tata Bates DO) History of cataract surgery Social History Preferred Language: [place] Communication Ability: Effective Hearing Ability: Normal Rental Management Trainee Required: No Beliefs That Will Affect Care: None marital status: Single Current Living Situation: Alone current occupational status: employed current occupation: Part-time- [employer] Other Information That Helps Us Care for You: No Feels Safe at Home: Yes Safety Concerns: Feels Safe At This Time Smoking Status: Never smoker Do You Dip or Chew Tobacco: No ; Second Hand Ex posure: No ; Tobacco Cessation Education Requested by Patient: No Hx Alcohol Use: No Hx Substance Use: No Review of Systems See HPI for pertinent positives & negatives. and A total of 10 systems reviewed and were otherwise negative Physical Exam Vital Signs Vital Signs - 24 hr 04/25/19 18:13 04/25/19 18:35 04/25/19 19:10 Temperature 37.1 C Temperature Source Oral Pulse Rate 99 H Pulse Rate [Apical] 85 Respiratory Rate 16 16 Respiratory Effort / Characteristics Non-Labored Respiratory Depth Normal Blood Pressure 101/67 Blood Pressure [Left Arm] 102/67 Blood Pressure Mean 78 Blood Pressure Mean [Left Arm] 78 Pulse Oximetry 97 97 97 Oxygen Delivery Method Room Air Room Air Sepsis Recent Fever Within 48 Hours No Sepsis New/Unexplained Change in Mental Status No Sepsis Action Taken by Nursing No Action Required 04/25/19 20:22 Temperature Temperature Source Pulse Rate Pulse Rate [Apical] 83 Respiratory Rate 18 Respiratory Effort / Characteristics Non-Labored Spontaneous Respiratory Depth Normal Blood Pressure Blood Pressure [Left Arm] 98/73 L Blood Pressure Mean Blood Pressure Mean [Left Arm] 81 Pulse Oximetry 99 Oxygen Delivery Method Room Air Sepsis Recent Fever Within 48 Hours Sepsis New/Unexplained Change in Mental Status Sepsis Action Taken by Nursing GENERAL: NAD, non-toxic. EYE EXAM: Normal conjunctiva. PERRL, no anisocoria and EOM's grossly intact w/o pain. OROPHARYNX: Dry mucous membranes. Grossly normal dentition. NECK: Supple, no nuchal rigidity, no adenopathy, non-tender. No signs of meningismus. LUNGS: Clear to auscultation. Normal chest wall mechanics. HEART: NSR, no MRG. ABDOMEN: Abdomen soft, non-tender, normo-active bowel sounds, no masses, no rebound or guarding. BACK: No CVA TTP. SKIN: No rashes and no bruising. UPPER EXTREMITIES: Upper extremities are grossly normal. LOWER EXTREMITIES: No pitting edema. No calf pain. Insulin pump to the left posterior thigh without redness, swelling or drainage. NEURO EXAM: A&O x3, cranial nerves II-XII grossly intact, normal speech, moves all 4 extremities on command w/o issue. Course Course 182: Past medical records reviewed. The patient was evaluated in room C10. A complete history and physical exam was performed. 1830: The patient was put on a quality assurance monitor body at this time. 1957: I discussed the patient's case with Dr. Deluca [facility] Hospitalist. She will evaluate the patient for further management. Consultations Consultation #1: I discussed the patient's case with Dr. Deluca [facility] Hospitalist. She will evaluate the patient for further management. Time: 19:58 Administered Medications Dextrose (Dextrose 50%) 25 - 50 ml IV UD PRN; Protocol PRN Reason: Hypoglycemia Protocol Stop: 05/25/19 22:44 Last Admin: 04/26/19 01:09 Dose: 25 ml Documented by: [id number] Fluticasone Propionate (Flovent Hfa 220mcg) 1 puffs INH BID RANDOLPH Stop: 05/25/19 22:08 Last Admin: 04/26/19 09:37 Dose: 1 puffs Documented by: [id number] Admin: 04/25/19 23:15 Dose: 1 puffs Documented by: [id number] Insulin Human Regular 250 (units/ Sodium Chloride) 250 mls @ 2 mls/hr IV .Q24H RANDOLPH; Protocol Stop: 05/25/19 19:59 Last Titration: 04/26/19 10:34 Dose: 2 units/hr, 2 mls/hr Documented by: [id number] Cosigned by: [id number] Titration: 04/26/19 08:42 Dose: 2 units/hr, 2 mls/hr Documented by: [id number] Cosigned by: [id number] Titration: 04/26/19 07:30 Dose: 2 units/hr, 2 mls/hr Documented by: [id number] Cosigned by: [id number] Titration: 04/26/19 07:15 Dose: 0 units/hr, 0 mls/hr Documented by: [id number] Cosigned by: [id number] Titration: 04/26/19 06:55 Dose: 0 units/hr, 0 mls/hr Documented by: [id number] Cosigned by: [id number] Titration: 04/26/19 06:37 Dose: 0 units/hr, 0 mls/hr Documented by: [id number] Cosigned by: [id number] Titration: 04/26/19 04:30 Dose: 2.5 units/hr, 2.5 mls/hr Documented by: [id number] Cosigned by: [id number] Titration: 04/26/19 03:30 Dose: 2.5 units/hr, 2.5 mls/hr Documented by: [id number] Cosigned by: [id number] Titration: 04/26/19 02:32 Dose: 2.5 units/hr, 2.5 mls/hr Documented by: [id number] Cosigned by: [id number] Titration: 04/26/19 01:26 Dose: 2.5 units/hr, 2.5 mls/hr Documented by: [id number] Cosigned by: [id number] Titration: 04/26/19 01:07 Dose: 0 units/hr, 0 mls/hr Documented by: [id number] Cosigned by: [id number] Titration: 04/26/19 00:44 Dose: 0 units/hr, 0 mls/hr Documented by: [id number] Cosigned by: [id number] Titration: 04/26/19 00:27 Dose: 0 units/hr, 0 mls/hr Documented by: [id number] Cosigned by: [id number] Titration: 04/26/19 00:05 Dose: 0 units/hr, 0 mls/hr Documented by: [id number] Cosigned by: [id number] Titration: 04/25/19 23:00 Dose: 4.1 units/hr, 4.1 mls/hr Documented by: [id number] Cosigned by: [id number] Titration: 04/25/19 22:26 Dose: 0 units/hr, 0 mls/hr Documented by: [id number] Cosigned by: [id number] Admin: 04/25/19 20:16 Dose: 6.3 units/hr, 6.3 mls/hr Documented by: [id number] Cosigned by: [id number] Potassium Chloride/Dextrose/Sod Cl (D5w And 1/2nss + 20meq Kcl) 20 meq in 1,000 mls @ 125 mls/hr IV .Q8H RANDOLPH Stop: 05/25/19 22:44 Last Admin: 04/26/19 06:38 Dose: 125 mls/hr Documented by: [id number] Infusion: 04/26/19 06:38 Dose: 125 mls/hr Documented by: [id number] Admin: 04/25/19 23:14 Dose: 125 mls/hr Documented by: [id number] Magnesium Sulfate/Dextrose (Magnesium Sulfate / D5w) 1 gm in 100 mls @ 100 mls/hr IV Q1H RANDOLPH Stop: 04/26/19 14:29 Last Admin: 04/26/19 12:40 Dose: 100 mls/hr Documented by: [id number] Insulin Aspart (Novolog Flexpen) 0 units SC ACHS RANDOLPH Stop: 04/26/19 16:29 Last Admin: 04/26/19 08:41 Dose: Not Given Documented by: [id number] Cosigned by: [id number] Loratadine (Claritin) 10 mg PO DAILY RANDOLPH Stop: 05/26/19 08:59 Last Admin: 04/26/19 09:37 Dose: 10 mg Documented by: [id number] Lorazepam (Ativan) 0.5 mg PO DAILY RANDOLPH Stop: 05/26/19 08:59 Last Admin: 04/26/19 09:37 Dose: 0.5 mg Documented by: [id number] Pantoprazole Sodium (Protonix) 40 mg PO DAILYBB [facility] Stop: 05/26/19 06:29 Last Admin: 04/26/19 06:39 Dose: 40 mg Documented by: [id number] Propranolol HCl (Inderal La) 60 mg PO HS [facility] Stop: 05/25/19 22:29 Last Admin: 04/25/19 23:16 Dose: Not Given Documented by: [id number] Discontinued Medications Sodium Chloride (Nss 1000ml) 1,000 mls @ 999 mls/hr IV .Q1H1M ONE Stop: 04/25/19 19:31 Last Infusion: 04/26/19 09:22 Dose: 0 mls/hr Documented by: [id number] Admin: 04/25/19 19:06 Dose: 999 mls/hr Documented by: [id number] Magnesium Sulfate/Dextrose (Magnesium Sulfate / D5w) 1 gm in 100 mls @ 100 mls/hr IV ONE ONE Stop: 04/26/19 00:44 Last Infusion: 04/26/19 01:58 Dose: 0 mls/hr Documented by: [id number] Admin: 04/25/19 23:53 Dose: 100 mls/hr Documented by: [id number] Magnesium Sulfate/Dextrose (Magnesium Sulfate / D5w) 1 gm in 100 mls @ 100 mls/hr IV ONE ONE Stop: 04/26/19 04:29 Last Infusion: 04/26/19 04:46 Dose: 0 mls/hr Documented by: [id number] Admin: 04/26/19 03:46 Dose: 100 mls/hr Documented by: [id number] Insulin Glargine (Lantus Solostar Pen) 15 units SC ONCE ONE Stop: 04/26/19 11:01 Last Admin: 04/26/19 10:44 Dose: 15 units Documented by: [id number] Cosigned by: [id number] Insulin Human Regular (Novolin R U-100 Per Unit) 5 units IV NOW STA Stop: 04/25/19 19:10 Last Admin: 04/25/19 19:15 Dose: 5 units Documented by: [id number] Cosigned by: [id number] Ondansetron HCl (Zofran) 4 mg IV NOW STA Stop: 04/25/19 18:32 Last Admin: 04/25/19 19:06 Dose: 4 mg Documented by: [id number] Critical Care Time Critical Care Time: Yes Total Critical Care Time: 55 I have personally spent 55 minutes of critical care time in direct management of this patient. This includes bedside care, interpretation of diagnostic studies, and testing, discussion with consultants, patient, and family members, and other require inpatient management activities of [facility]. This 55 minutes is in excess of all separately billable procedures. Medical Decision Making Differential Diagnosis Differential diagnosis: Etiologies such as gastroenteritis, food borne illness, infections, appendicitis, diverticulitis, inflammatory bowel disease, obstruction, GI bleed, biliary pathology, cardiac process, intracranial process, as well as others were entertained. Medical Records Attestation: I reviewed the patient's medical records. Home Medications Current Medication List: was personally reviewed by me Laboratory Data Attestation: I reviewed the patient's lab results. Result diagrams: 04/25/19 19:05 04/26/19 09:51 Lab Results 04/25/19 04/25/19 04/25/19 Range/Units 18:44 18:44 19:02 WBC (4.8-10.8) K/uL RBC (4.2-5.4) M/uL Hgb (12.0-16.0) g/dL Hct (37-47) % MCV (80-100) fL MCH (25-34) pg MCHC (32-36) g/dL RDW Std Deviation (36.4-46.3) fL RDW Coeff of Keanu (11.5-14.5) % Plt Count (130-400) K/uL MPV (7.4-10.4) fL Immature Gran % (Auto) % Neut % (Auto) % Lymph % (Auto) % [place] % (Auto) % Eos % (Auto) % Baso % (Auto) % Immature Gran # (Auto) (0.00-0.02) K/uL Neut # (Auto) (1.4-6.5) K/uL Lymph # (Auto) (1.2-3.4) K/uL [place] # (Auto) (0.11-0.59) K/uL Eos # (Auto) (0-0.5) K/uL Baso # (Auto) (0-0.2) K/uL Sodium (136-145) mmol/L Potassium (3.5-5.1) mmol/L Chloride (98-107) mmol/L Carbon Dioxide (21-32) mmol/L Anion Gap (3-11) BUN (7-18) mg/dl Creatinine (0.6-1.2) mg/dl Est Cr Clr Drug Dosing ml/min Est GFR ( Amer) Est GFR (Non-Af Amer) BUN/Creatinine Ratio (10-20) Glucose (70-99) mg/dl POC Glucose 520 H* (70-99) Calcium (8.5-10.1) mg/dl Phosphorus (2.5-4.9) mg/dl Magnesium (1.8-2.4) mg/dl Total Bilirubin (0.2-1) mg/dl AST (15-37) U/L ALT (12-78) U/L Alkaline Phosphatase (45-117) U/L Total Protein (6.4-8.2) gm/dl Albumin (3.4-5.0) gm/dl Globulin (2.5-4.0) gm/dl Albumin/Globulin Ratio (0.9-2) Lipase (73-393) U/L Beta-Hydroxybutyric Acd (0.2-2.81) mg/dl Urine Color Yellow Urine Appearance Clear (Clear) Urine pH 5.0 (4.5-7.5) Ur Specific [place] 1.035 H (1.000-1.030) Urine Protein Negative (Negative) Urine Glucose (UA) 3+ H (Negative) Urine Ketones 4+ H (Negative) Urine Blood Negative (Negative) Urine Nitrite Negative (Negative) Urine Bilirubin Negative (Negative) Urine Urobilinogen Negative (Negative) Ur Leukocyte Esterase Negative (Negative) Urine Test Negative (Negative) 04/25/19 04/25/19 04/25/19 Range/Units 19:04 19:05 19:05 WBC 7.39 (4.8-10.8) K/uL RBC 4.65 (4.2-5.4) M/uL Hgb 14.2 (12.0-16.0) g/dL Hct 40.9 (37-47) % MCV 88.0 (80-100) fL MCH 30.5 (25-34) pg MCHC 34.7 (32-36) g/dL RDW Std Deviation 38.1 (36.4-46.3) fL RDW Coeff of Keanu 11.9 (11.5-14.5) % Plt Count 340 (130-400) K/uL MPV 10.9 H (7.4-10.4) fL Immature Gran % (Auto) 0.1 % Neut % (Auto) 59.9 % Lymph % (Auto) 27.3 % [place] % (Auto) 10.4 % Eos % (Auto) 1.6 % Baso % (Auto) 0.7 % Immature Gran # (Auto) 0.01 (0.00-0.02) K/uL Neut # (Auto) 4.42 (1.4-6.5) K/uL Lymph # (Auto) 2.02 (1.2-3.4) K/uL [place] # (Auto) 0.77 H (0.11-0.59) K/uL Eos # (Auto) 0.12 (0-0.5) K/uL Baso # (Auto) 0.05 (0-0.2) K/uL Sodium 130 L (136-145) mmol/L Potassium 4.3 (3.5-5.1) mmol/L Chloride 99 (98-107) mmol/L Carbon Dioxide 17 L (21-32) mmol/L Anion Gap 14.0 H (3-11) BUN 16 (7-18) mg/dl Creatinine 0.87 (0.6-1.2) mg/dl Est Cr Clr Drug Dosing 86.1 ml/min Est GFR ( Amer) 108.1 Est GFR (Non-Af Amer) 93.2 BUN/Creatinine Ratio 18.0 (10-20) Glucose 496 H* (70-99) mg/dl POC Glucose 453 H* (70-99) Calcium 9.4 (8.5-10.1) mg/dl Phosphorus 4.0 (2.5-4.9) mg/dl Magnesium 1.4 L (1.8-2.4) mg/dl Total Bilirubin 1.0 (0.2-1) mg/dl AST 13 L (15-37) U/L ALT 22 (12-78) U/L Alkaline Phosphatase 123 H (45-117) U/L Total Protein 7.9 (6.4-8.2) gm/dl Albumin 3.6 (3.4-5.0) gm/dl Globulin 4.3 H (2.5-4.0) gm/dl Albumin/Globulin Ratio 0.8 L (0.9-2) Lipase 102 (73-393) U/L Beta-Hydroxybutyric Acd 43.10 H (0.2-2.81) mg/dl Urine Color Urine Appearance (Clear) Urine pH (4.5-7.5) Ur Specific [place] (1.000-1.030) Urine Protein (Negative) Urine Glucose (UA) (Negative) Urine Ketones (Negative) Urine Blood (Negative) Urine Nitrite (Negative) Urine Bilirubin (Negative) Urine Urobilinogen (Negative) Ur Leukocyte Esterase (Negative) Urine Test (Negative) 04/25/19 Range/Units 20:14 WBC (4.8-10.8) K/uL RBC (4.2-5.4) M/uL Hgb (12.0-16.0) g/dL Hct (37-47) % MCV (80-100) fL MCH (25-34) pg MCHC (32-36) g/dL RDW Std Deviation (36.4-46.3) fL RDW Coeff of Keanu (11.5-14.5) % Plt Count (130-400) K/uL MPV (7.4-10.4) fL Immature Gran % (Auto) % Neut % (Auto) % Lymph % (Auto) % [place] % (Auto) % Eos % (Auto) % Baso % (Auto) % Immature Gran # (Auto) (0.00-0.02) K/uL Neut # (Auto) (1.4-6.5) K/uL Lymph # (Auto) (1.2-3.4) K/uL [place] # (Auto) (0.11-0.59) K/uL Eos # (Auto) (0-0.5) K/uL Baso # (Auto) (0-0.2) K/uL Sodium (136-145) mmol/L Potassium (3.5-5.1) mmol/L Chloride (98-107) mmol/L Carbon Dioxide (21-32) mmol/L Anion Gap (3-11) BUN (7-18) mg/dl Creatinine (0.6-1.2) mg/dl Est Cr Clr Drug Dosing ml/min Est GFR ( Amer) Est GFR (Non-Af Amer) BUN/Creatinine Ratio (10-20) Glucose (70-99) mg/dl POC Glucose 358 H* (70-99) Calcium (8.5-10.1) mg/dl Phosphorus (2.5-4.9) mg/dl Magnesium (1.8-2.4) mg/dl Total Bilirubin (0.2-1) mg/dl AST (15-37) U/L ALT (12-78) U/L Alkaline Phosphatase (45-117) U/L Total Protein (6.4-8.2) gm/dl Albumin (3.4-5.0) gm/dl Globulin (2.5-4.0) gm/dl Albumin/Globulin Ratio (0.9-2) Lipase (73-393) U/L Beta-Hydroxybutyric Acd (0.2-2.81) mg/dl Urine Color Urine Appearance (Clear) Urine pH (4.5-7.5) Ur Specific [place] (1.000-1.030) Urine Protein (Negative) Urine Glucose (UA) (Negative) Urine Ketones (Negative) Urine Blood (Negative) Urine Nitrite (Negative) Urine Bilirubin (Negative) Urine Urobilinogen (Negative) Ur Leukocyte Esterase (Negative) Urine Test (Negative) Blood Pressure Blood Pressure Findings: Normal blood pressure Blood Pressure Disposition: did not require urgent referral MDM Narrative Patient was seen and evaluated the bedside. The patient does relate that she is an insulin-dependent diabetic and has had some worsening nausea over the last several days. The patient felt this way earlier in the week and did see her primary care physician at which point patient's blood sugar was in the 200s. The patient not checked her sugar since then. BSG was 520. Patient did a blood work completed along with IV fluids IV insulin and additional blood work was obtained. Was concern initially for DKA. Potassium is normal. The patient do es have pseudohyponatremia given the patient's elevated blood glucose. Given the elevated anion gap and low bicarb insulin drip was started. I did order order a VBG. I did speak the on-call hospitalist agreed to further evaluate treat the patient. Patient was subsequently admitted to the medicine service. Impression & Plan DKA (diabetic ketoacidosis), Dehydration, Nausea Discharge Plan Visit Data *Final* Discharge Date/Time: 04/25/19 21:23 Chief Complaint: Nausea Stated Complaint: MILD-MODERATE NAUSEA, UNABLE TO EAT OR DRINK MUCH ED Provider: Ryder Bryant Discharge Problem: DKA (diabetic ketoacidosis), Dehydration, Nausea Patient Disposition: Admitted As Inpatient Discharge Instructions Interventions: ED Discharge Assessment Last Done: 04/25/19 21:23 Discharge Problem: DKA (diabetic ketoacidosis) Qualifiers: Diabetes mellitus type: type 1 Diabetes mellitus complication detail: without coma Qualified Code(s): E10.10 - Type 1 diabetes mellitus with ketoacidosis without coma The scribe's documentation has been prepared under my direction and personally reviewed by me in its entirety. I confirm that the note above accurately reflects all work, treatment, procedures, and medical decision making performed by me.
--- NOTE | 2019-04-26 13:47 | Pharmacy Report ---
Glycemic Control Consultation - Date of Service April 26, 2019 - Scope Scope: Glycemic Pharmacist consulted by Josefina Sanderson PA-C on 04/26/19 for glycemic control and to write orders per [facility] inpatient glycemic control protocol - Objective Weight: 63.9 kg Accuchecks BSG (last 24hrs): 04/25/19 04/25/19 04/25/19 19:02 19:04 19:05 Glucose 496 H* POC Glucose 520 H* 453 H* 04/25/19 04/25/19 04/25/19 20:14 21:13 22:19 Glucose POC Glucose 358 H* 319 H* 212 H 04/25/19 04/26/19 04/26/19 22:20 00:02 00:20 Glucose 211 H POC Glucose 124 H 135 H 04/26/19 04/26/19 04/26/19 00:43 01:01 01:25 Glucose POC Glucose 142 H 138 H 226 H 04/26/19 04/26/19 04/26/19 02:03 02:28 03:32 Glucose 240 H POC Glucose 217 H 192 H 04/26/19 04/26/19 04/26/19 04:31 05:54 06:31 Glucose 142 H POC Glucose 165 H 127 H 04/26/19 04/26/19 04/26/19 06:54 07:13 07:26 Glucose POC Glucose 123 H 128 H 142 H 04/26/19 04/26/19 04/26/19 08:38 09:39 09:51 Glucose 201 H POC Glucose 158 H 191 H 04/26/19 04/26/19 10:30 12:32 Glucose POC Glucose 170 H 179 H Laboratory Data (last 24hrs): 04/25/19 04/25/19 04/26/19 19:05 22:20 02:03 Potassium 4.3 3.6 D 3.8 Carbon Dioxide 17 L 22 20 L Anion Gap 14.0 H 8.0 8.0 Creatinine 0.87 0.79 0.64 Est Cr Clr Drug Dosing 86.1 94.8 117.0 Beta-Hydroxybutyric Acd 43.10 H 04/26/19 04/26/19 05:54 09:51 Potassium 4.0 4.2 Carbon Dioxide 25 23 Anion Gap 3.0 6.0 Creatinine 0.69 0.63 Est Cr Clr Drug Dosing 108.6 118.9 Beta-Hydroxybutyric Acd - Recent Pertinent Medications Outpatient Anti-diabetic Regimen: * Novolog pump * 7373-9517 0.8 units/hr * 4209-2293 0.85 units/hr * 6986-7657 0.76 units/hr * 7912-4778 0.76 units/hr * 3954-7659 0.8 units/hr * CR = 8 * CR = 45 (50 from 0900 onwards) * if pump fails, patient to use Lantus 19 units daily + CR of 8 * A1c = 12.8 % 03/18/19 Risk Factors for Insulin Resistance: * IVF: D51/2NS at 125 cc/hr subsequently d/c'ed at around 1300 * Diet: diet started at lunch time - Assessment & Plan Assessment & Plan: ASSESSMENT: * Ms Cota is a 23 y/o F with a PMH of T1DM with an elevated HbA1C. Patient admitted in DKA. Continuous glucose monitor stopped working last week and patient did not use her meter at home to check blood sugars. Became sick with N/V/D on Saturday. She has gastroparesis. Subsequently admitted in DKA. * Pharmacy was consulted this morning. Patient started on insulin infusion and electrolytes had normalized. Patient's infusion running around 2 units/hr this morning. After conversation with patient, it was determined that she has had much difficult with diet - she consumes a pureed diet. She has hypoglycemia at 1000 and 1400. She has struggled in the past with not using insulin when blood sugars are high to prevent weight gain. Patient's HbA1C most likely inflated due to this. She will take all insulin we give her. * Since patient has been having low blood sugars, I am concerned that 19 units may be too aggressive. PLUS patient's PO intake is variable at this point. Will use 15 units for now. Loosely base CF/CR on home regimen. Stop insulin infusion prior to dinner. * life educator in to see patient and discuss transition with pump from basal bolus. Patient does not have anyone to bring supplies in. PLAN FOR INPATIENT GLYCEMIC CONTROL: * Basal insulin * Lantus 15 units SQ x 1 * Bolus insulin * NovoLog per scale ACHS or Q6hrs while NPO * Goal Range: Low 120 mg/dL - High 160 mg/dL * Correction Factor: 45 mg/dL/unit * Nutritional / Prandial insulin per carb ratio of 1 unit per 10 grams CHO consumed * Please note that the plan above was derived based on current level of insulin resistance and hospital stress. These recommendations are appropriate for inpatient admission only. Plan of care upon discharge will need to be reassessed to avoid potential outpatient hypo/hyperglycemia. Thank you.
[2019-04-26 14:49] LABS: BUN Creatinine Ratio 10.8 (10-20); Calcium 8.4 mg/dl (8.5-10.1); Est GFR (African American) 148.7; Est GFR (Non-African American) 128.3
[2019-04-26 15:09] LABS: Phosphorus 1.9 mg/dl (2.5-4.9)
--- NOTE | 2019-04-26 15:10 | Hospitalist Progress Note ---
Date of Service April 26, 2019 Assessment & Plan (1) DKA (diabetic ketoacidosis): * Improving, gap closed, glucose controlled * Secondary to noncompliance with meds. No evidence of infection * Patient with type 1 diabetes, insulin pump in place, presenting with DKA. pH = 7.3, anion gap = 14, blood sugar on arrival = 496. Patient appears comfortable and is relatively asymptomatic. She is afebrile and hemodynamically stable, nontoxic in appearance. * Given IVF with Normosol at 125ml/hr and then converted to D5W + 1/2NS w/ KCl, Insulin gtt, Q1h bs checks, labs q4h -- IVF discontinued, but if patient not taking in adequate PO, will have to resume * Diabetes education -- most recent A1c 12.8 -- some component of non-compliance as patient does not want to gain weight * Pharmacy consult for glycemic management * As blood sugars less than 200 since this morning, will transition from insulin gtt to basal/bolus insulin -- patient will need to go home with basal/bolus until able to use insulin pump * pH 7.41, anion gap 8.0 * Continue to monitor and replace lytes as needed (2) Gastroparesis: * Patient with history of gastroparesis secondary to her diabetes. She reports that her symptoms are typically relieved with Zofran. She does not seem to be on any promotility agents at home. * Continue Zofran as needed * Consider Reglan as needed if nausea persists (3) Depression with anxiety: * Patient reports history of depression, anxiety and borderline personality disorder as well as body image issues with an active eating disorder. She is in therapy for these issues. Seems that sugars run on high side in order to prevent weight gain. * Continue home Ativan 0.5mg po daily. It does not appear that patient is on a SSRI/SNRI or mood stabilizer. * Continued Psychiatric followup (4) Chronic constipation: * Chronic. Patient with recent diarrhea * Hold Linzess for now * Continue to monitor (5) Asthma: * Patient with history of asthma. Presently denies cough/shortness of breath. Pulmonary exam is unremarkable * Continue loratadine daily * Continue albuterol as needed (6) Acid reflux disease: * Chronic. Stable. * Continue omeprazole p.o. daily -- may contribute to low mag (7) Hypomagnesemia: * Chronic- patient states her mother also suffers from low magnesium * Of note, patient has been taking omeprazole over the past year -- may be contributing * If continues to be low in AM, would consider addition of PO supplements but would be cautious as to not worsen diarrhea * Mag 1.6 -- given additional 2gm today -- continue to monitor q4h (8) Hypophosphatemia: * Mag 1.3 on admit - given IV replacement * Most recent 1.6 -- give additional replacement * Continue to monitor (9) DVT prophylaxis: * Low risk -- ambulation encouraged Dispo: discharge in Am with basal/bolus until she is able to transfer to pump Supervising Physician Co-Signing Physician Notes PA Supervision Note: I did not personally see or examine the patient today, but I verified all patel points of OZIEL Sanderson's assessment and plan with the following exceptions/additions: None Subjective Patient evaluate in bed this morning. States she had last checked her BSG at appointment on Saturday, and had no received her device equipment in the mail yet due to delay in delivery. Patient denies any continued nausea, vomiting or diarrhea. Appetite and would like to eat. States she ran out of equipment for her pump and the last time she checked her sugar was Saturday at her dr appt. She has been giving herself bolus dosing since that time with worsening of diarrhea and nausea which caused her come to the hospital. Denies chest pain, shortness of breath, n/v/d, fever, chills, dysuria at this time. Medical equipment to be delivered tomorrow. Review of Systems Review of Systems: All systems reviewed & are unremarkable except as noted in HPI & below Physical Exam Constitutional: WD/WN, vitals as above no acute distress Eyes: + anicteric sclerae and PERRL ENMT: mm pink, moist Respiratory: normal respiratory effort, lungs clear to auscultation Cardiovascular: RRR, no murmur, no edema Gastrointestinal (Abdomen): Percussion/Palpation: + abdomen tender (minimal tenderness diffusely); no guarding, abdomen not rigid and no hepatosplenomegaly bs present in all quadrants, hypoactive Skin: left upper back scar from biopsy Neurologic: moves all extremities and awake Speech / Cognition: normal speech Psychiatric: Orientation: alert and oriented x 3 Lymphatic: no cervical or axillary lymphadenopathy Results & Data Vital Signs (Past 12 Hours) Vital Signs Temp Pulse Resp BP Pulse Ox 04/26/19 12:10 36.9 C 78 16 109/68 96 04/26/19 07:15 36.7 C 75 18 94/60 L 98 04/26/19 03:30 36.8 C 78 18 91/51 L 96 Laboratory Results 04/26/19 04/26/19 04/26/19 Range/Units 14:32 14:11 14:11 WBC (4.8-10.8) K/uL RBC (4.2-5.4) M/uL Hgb (12.0-16.0) g/dL Hct (37-47) % MCV (80-100) fL MCH (25-34) pg MCHC (32-36) g/dL RDW Std Deviation (36.4-46.3) fL RDW Coeff of Keanu (11.5-14.5) % Plt Count (130-400) K/uL MPV (7.4-10.4) fL Immature Gran % (Auto) % Neut % (Auto) % Lymph % (Auto) % [place] % (Auto) % Eos % (Auto) % Baso % (Auto) % Immature Gran # (Auto) (0.00-0.02) K/uL Neut # (Auto) (1.4-6.5) K/uL Lymph # (Auto) (1.2-3.4) K/uL [place] # (Auto) (0.11-0.59) K/uL Eos # (Auto) (0-0.5) K/uL Baso # (Auto) (0-0.2) K/uL VBG pH 7.41 (7.36-7.41) VBG pCO2 (38-50) mmHg VBG pO2 mmHg VBG HCO3 mmol/L VBG O2 Saturation % VBG Base Excess mEq/L Barometric Pressure mm/Hg Sodium 137 (136-145) mmol/L Potassium (3.5-5.1) mmol/L Chloride 107 (98-107) mmol/L Carbon Dioxide 22 (21-32) mmol/L Anion Gap 8.0 (3-11) BUN 6 L (7-18) mg/dl Creatinine 0.59 L (0.6-1.2) mg/dl Est Cr Clr Drug Dosing 127.0 ml/min Est GFR ( Amer) 148.7 Est GFR (Non-Af Amer) 128.3 BUN/Creatinine Ratio 10.8 (10-20) Glucose 203 H (70-99) mg/dl POC Glucose 198 H (70-99) Estimat Average Glucose Hemoglobin A1c Calcium 8.4 L (8.5-10.1) mg/dl Phosphorus 1.9 L D (2.5-4.9) mg/dl Magnesium (1.8-2.4) mg/dl Total Bilirubin (0.2-1) mg/dl AST (15-37) U/L ALT (12-78) U/L Alkaline Phosphatase (45-117) U/L Total Protein (6.4-8.2) gm/dl Albumin (3.4-5.0) gm/dl Globulin (2.5-4.0) gm/dl Albumin/Globulin Ratio (0.9-2) Lipase (73-393) U/L Beta-Hydroxybutyric Acd (0.2-2.81) mg/dl Urine Color Urine Appearance (Clear) Urine pH (4.5-7.5) Ur Specific Damon (1.000-1.030) Urine Protein (Negative) Urine Glucose (UA) (Negative) Urine Ketones (Negative) Urine Blood (Negative) Urine Nitrite (Negative) Urine Bilirubin (Negative) Urine Urobilinogen (Negative) Ur Leukocyte Esterase (Negative) Urine Test (Negative) 04/26/19 04/26/19 04/26/19 Range/Units 12:32 10:30 09:51 WBC (4.8-10.8) K/uL RBC (4.2-5.4) M/uL Hgb (12.0-16.0) g/dL Hct (37-47) % MCV (80-100) fL MCH (25-34) pg MCHC (32-36) g/dL RDW Std Deviation (36.4-46.3) fL RDW Coeff of Keanu (11.5-14.5) % Plt Count (130-400) K/uL MPV (7.4-10.4) fL Immature Gran % (Auto) % Neut % (Auto) % Lymph % (Auto) % [place] % (Auto) % Eos % (Auto) % Baso % (Auto) % Immature Gran # (Auto) (0.00-0.02) K/uL Neut # (Auto) (1.4-6.5) K/uL Lymph # (Auto) (1.2-3.4) K/uL [place] # (Auto) (0.11-0.59) K/uL Eos # (Auto) (0-0.5) K/uL Baso # (Auto) (0-0.2) K/uL VBG pH 7.41 (7.36-7.41) VBG pCO2 (38-50) mmHg VBG pO2 mmHg VBG HCO3 mmol/L VBG O2 Saturation % VBG Base Excess mEq/L Barometric Pressure mm/Hg Sodium (136-145) mmol/L Potassium (3.5-5.1) mmol/L Chloride (98-107) mmol/L Carbon Dioxide (21-32) mmol/L Anion Gap (3-11) BUN (7-18) mg/dl Creatinine (0.6-1.2) mg/dl Est Cr Clr Drug Dosing ml/min Est GFR ( Amer) Est GFR (Non-Af Amer) BUN/Creatinine Ratio (10-20) Glucose (70-99) mg/dl POC Glucose 179 H 170 H (70-99) Estimat Average Glucose Hemoglobin A1c Calcium (8.5-10.1) mg/dl Phosphorus (2.5-4.9) mg/dl Magnesium (1.8-2.4) mg/dl Total Bilirubin (0.2-1) mg/dl AST (15-37) U/L ALT (12-78) U/L Alkaline Phosphatase (45-117) U/L Total Protein (6.4-8.2) gm/dl Albumin (3.4-5.0) gm/dl Globulin (2.5-4.0) gm/dl Albumin/Globulin Ratio (0.9-2) Lipase (73-393) U/L Beta-Hydroxybutyric Acd (0.2-2.81) mg/dl Urine Color Urine Appearance (Clear) Urine pH (4.5-7.5) Ur Specific Damon (1.000-1.030) Urine Protein (Negative) Urine Glucose (UA) (Negative) Urine Ketones (Negative) Urine Blood (Negative) Urine Nitrite (Negative) Urine Bilirubin (Negative) Urine Urobilinogen (Negative) Ur Leukocyte Esterase (Negative) Urine Test (Negative) 04/26/19 04/26/19 04/26/19 Range/Units 09:51 09:39 08:38 WBC (4.8-10.8) K/uL RBC (4.2-5.4) M/uL Hgb (12.0-16.0) g/dL Hct (37-47) % MCV (80-100) fL MCH (25-34) pg MCHC (32-36) g/dL RDW Std Deviation (36.4-46.3) fL RDW Coeff of Keanu (11.5-14.5) % Plt Count (130-400) K/uL MPV (7.4-10.4) fL Immature Gran % (Auto) % Neut % (Auto) % Lymph % (Auto) % [place] % (Auto) % Eos % (Auto) % Baso % (Auto) % Immature Gran # (Auto) (0.00-0.02) K/uL Neut # (Auto) (1.4-6.5) K/uL Lymph # (Auto) (1.2-3.4) K/uL [place] # (Auto) (0.11-0.59) K/uL Eos # (Auto) (0-0.5) K/uL Baso # (Auto) (0-0.2) K/uL VBG pH (7.36-7.41) VBG pCO2 (38-50) mmHg VBG pO2 mmHg VBG HCO3 mmol/L VBG O2 Saturation % VBG Base Excess mEq/L Barometric Pressure mm/Hg Sodium 137 (136-145) mmol/L Potassium 4.2 (3.5-5.1) mmol/L Chloride 108 H (98-107) mmol/L Carbon Dioxide 23 (21-32) mmol/L Anion Gap 6.0 (3-11) BUN 9 (7-18) mg/dl Creatinine 0.63 (0.6-1.2) mg/dl Est Cr Clr Drug Dosing 118.9 ml/min Est GFR ( Amer) 145.5 Est GFR (Non-Af Amer) 125.5 BUN/Creatinine Ratio 14.1 (10-20) Glucose 201 H (70-99) mg/dl POC Glucose 191 H 158 H (70-99) Estimat Average Glucose Hemoglobin A1c Calcium 8.2 L (8.5-10.1) mg/dl Phosphorus 2.9 (2.5-4.9) mg/dl Magnesium 1.6 L (1.8-2.4) mg/dl Total Bilirubin (0.2-1) mg/dl AST (15-37) U/L ALT (12-78) U/L Alkaline Phosphatase (45-117) U/L Total Protein (6.4-8.2) gm/dl Albumin (3.4-5.0) gm/dl Globulin (2.5-4.0) gm/dl Albumin/Globulin Ratio (0.9-2) Lipase (73-393) U/L Beta-Hydroxybutyric Acd (0.2-2.81) mg/dl Urine Color Urine Appearance (Clear) Urine pH (4.5-7.5) Ur Specific Damon (1.000-1.030) Urine Protein (Negative) Urine Glucose (UA) (Negative) Urine Ketones (Negative) Urine Blood (Negative) Urine Nitrite (Negative) Urine Bilirubin (Negative) Urine Urobilinogen (Negative) Ur Leukocyte Esterase (Negative) Urine Test (Negative) 04/26/19 04/26/19 04/26/19 Range/Units 07:26 07:13 06:54 WBC (4.8-10.8) K/uL RBC (4.2-5.4) M/uL Hgb (12.0-16.0) g/dL Hct (37-47) % MCV (80-100) fL MCH (25-34) pg MCHC (32-36) g/dL RDW Std Deviation (36.4-46.3) fL RDW Coeff of Keanu (11.5-14.5) % Plt Count (130-400) K/uL MPV (7.4-10.4) fL Immature Gran % (Auto) % Neut % (Auto) % Lymph % (Auto) % [place] % (Auto) % Eos % (Auto) % Baso % (Auto) % Immature Gran # (Auto) (0.00-0.02) K/uL Neut # (Auto) (1.4-6.5) K/uL Lymph # (Auto) (1.2-3.4) K/uL [place] # (Auto) (0.11-0.59) K/uL Eos # (Auto) (0-0.5) K/uL Baso # (Auto) (0-0.2) K/uL VBG pH (7.36-7.41) VBG pCO2 (38-50) mmHg VBG pO2 mmHg VBG HCO3 mmol/L VBG O2 Saturation % VBG Base Excess mEq/L Barometric Pressure mm/Hg Sodium (136-145) mmol/L Potassium (3.5-5.1) mmol/L Chloride (98-107) mmol/L Carbon Dioxide (21-32) mmol/L Anion Gap (3-11) BUN (7-18) mg/dl Creatinine (0.6-1.2) mg/dl Est Cr Clr Drug Dosing ml/min Est GFR ( Amer) Est GFR (Non-Af Amer) BUN/Creatinine Ratio (10-20) Glucose (70-99) mg/dl POC Glucose 142 H 128 H 123 H (70-99) Estimat Average Glucose Hemoglobin A1c Calcium (8.5-10.1) mg/dl Phosphorus (2.5-4.9) mg/dl Magnesium (1.8-2.4) mg/dl Total Bilirubin (0.2-1) mg/dl AST (15-37) U/L ALT (12-78) U/L Alkaline Phosphatase (45-117) U/L Total Protein (6.4-8.2) gm/dl Albumin (3.4-5.0) gm/dl Globulin (2.5-4.0) gm/dl Albumin/Globulin Ratio (0.9-2) Lipase (73-393) U/L Beta-Hydroxybutyric Acd (0.2-2.81) mg/dl Urine Color Urine Appearance (Clear) Urine pH (4.5-7.5) Ur Specific Damon (1.000-1.030) Urine Protein (Negative) Urine Glucose (UA) (Negative) Urine Ketones (Negative) Urine Blood (Negative) Urine Nitrite (Negative) Urine Bilirubin (Negative) Urine Urobilinogen (Negative) Ur Leukocyte Esterase (Negative) Urine Test (Negative) 04/26/19 04/26/19 04/26/19 Range/Units 06:31 05:54 05:54 WBC (4.8-10.8) K/uL RBC (4.2-5.4) M/uL Hgb (12.0-16.0) g/dL Hct (37-47) % MCV (80-100) fL MCH (25-34) pg MCHC (32-36) g/dL RDW Std Deviation (36.4-46.3) fL RDW Coeff of Keanu (11.5-14.5) % Plt Count (130-400) K/uL MPV (7.4-10.4) fL Immature Gran % (Auto) % Neut % (Auto) % Lymph % (Auto) % [place] % (Auto) % Eos % (Auto) % Baso % (Auto) % Immature Gran # (Auto) (0.00-0.02) K/uL Neut # (Auto) (1.4-6.5) K/uL Lymph # (Auto) (1.2-3.4) K/uL [place] # (Auto) (0.11-0.59) K/uL Eos # (Auto) (0-0.5) K/uL Baso # (Auto) (0-0.2) K/uL VBG pH 7.33 L (7.36-7.41) VBG pCO2 (38-50) mmHg VBG pO2 mmHg VBG HCO3 mmol/L VBG O2 Saturation % VBG Base Excess mEq/L Barometric Pressure mm/Hg Sodium 137 (136-145) mmol/L Potassium 4.0 (3.5-5.1) mmol/L Chloride 109 H (98-107) mmol/L Carbon Dioxide 25 (21-32) mmol/L Anion Gap 3.0 (3-11) BUN 12 (7-18) mg/dl Creatinine 0.69 (0.6-1.2) mg/dl Est Cr Clr Drug Dosing 108.6 ml/min Est GFR ( Amer) 141.2 Est GFR (Non-Af Amer) 121.8 BUN/Creatinine Ratio 17.1 (10-20) Glucose 142 H (70-99) mg/dl POC Glucose 127 H (70-99) Estimat Average Glucose Hemoglobin A1c Calcium 8.0 L (8.5-10.1) mg/dl Phosphorus 3.3 (2.5-4.9) mg/dl Magnesium 1.8 (1.8-2.4) mg/dl Total Bilirubin (0.2-1) mg/dl AST (15-37) U/L ALT (12-78) U/L Alkaline Phosphatase (45-117) U/L Total Protein (6.4-8.2) gm/dl Albumin (3.4-5.0) gm/dl Globulin (2.5-4.0) gm/dl Albumin/Globulin Ratio (0.9-2) Lipase (73-393) U/L Beta-Hydroxybutyric Acd (0.2-2.81) mg/dl Urine Color Urine Appearance (Clear) Urine pH (4.5-7.5) Ur Specific Damon (1.000-1.030) Urine Protein (Negative) Urine Glucose (UA) (Negative) Urine Ketones (Negative) Urine Blood (Negative) Urine Nitrite (Negative) Urine Bilirubin (Negative) Urine Urobilinogen (Negative) Ur Leukocyte Esterase (Negative) Urine Test (Negative) 04/26/19 04/26/19 04/26/19 Range/Units 04:31 03:32 02:28 WBC (4.8-10.8) K/uL RBC (4.2-5.4) M/uL Hgb (12.0-16.0) g/dL Hct (37-47) % MCV (80-100) fL MCH (25-34) pg MCHC (32-36) g/dL RDW Std Deviation (36.4-46.3) fL RDW Coeff of Keanu (11.5-14.5) % Plt Count (130-400) K/uL MPV (7.4-10.4) fL Immature Gran % (Auto) % Neut % (Auto) % Lymph % (Auto) % [place] % (Auto) % Eos % (Auto) % Baso % (Auto) % Immature Gran # (Auto) (0.00-0.02) K/uL Neut # (Auto) (1.4-6.5) K/uL Lymph # (Auto) (1.2-3.4) K/uL [place] # (Auto) (0.11-0.59) K/uL Eos # (Auto) (0-0.5) K/uL Baso # (Auto) (0-0.2) K/uL VBG pH (7.36-7.41) VBG pCO2 (38-50) mmHg VBG pO2 mmHg VBG HCO3 mmol/L VBG O2 Saturation % VBG Base Excess mEq/L Barometric Pressure mm/Hg Sodium (136-145) mmol/L Potassium (3.5-5.1) mmol/L Chloride (98-107) mmol/L Carbon Dioxide (21-32) mmol/L Anion Gap (3-11) BUN (7-18) mg/dl Creatinine (0.6-1.2) mg/dl Est Cr Clr Drug Dosing ml/min Est GFR ( Amer) Est GFR (Non-Af Amer) BUN/Creatinine Ratio (10-20) Glucose (70-99) mg/dl POC Glucose 165 H 192 H 217 H (70-99) Estimat Average Glucose Hemoglobin A1c Calcium (8.5-10.1) mg/dl Phosphorus (2.5-4.9) mg/dl Magnesium (1.8-2.4) mg/dl Total Bilirubin (0.2-1) mg/dl AST (15-37) U/L ALT (12-78) U/L Alkaline Phosphatase (45-117) U/L Total Protein (6.4-8.2) gm/dl Albumin (3.4-5.0) gm/dl Globulin (2.5-4.0) gm/dl Albumin/Globulin Ratio (0.9-2) Lipase (73-393) U/L Beta-Hydroxybutyric Acd (0.2-2.81) mg/dl Urine Color Urine Appearance (Clear) Urine pH (4.5-7.5) Ur Specific Damon (1.000-1.030) Urine Protein (Negative) Urine Glucose (UA) (Negative) Urine Ketones (Negative) Urine Blood (Negative) Urine Nitrite (Negative) Urine Bilirubin (Negative) Urine Urobilinogen (Negative) Ur Leukocyte Esterase (Negative) Urine Test (Negative) 04/26/19 04/26/19 04/26/19 Range/Units 02:03 02:03 01:25 WBC (4.8-10.8) K/uL RBC (4.2-5.4) M/uL Hgb (12.0-16.0) g/dL Hct (37-47) % MCV (80-100) fL MCH (25-34) pg MCHC (32-36) g/dL RDW Std Deviation (36.4-46.3) fL RDW Coeff of Keanu (11.5-14.5) % Plt Count (130-400) K/uL MPV (7.4-10.4) fL Immature Gran % (Auto) % Neut % (Auto) % Lymph % (Auto) % [place] % (Auto) % Eos % (Auto) % Baso % (Auto) % Immature Gran # (Auto) (0.00-0.02) K/uL Neut # (Auto) (1.4-6.5) K/uL Lymph # (Auto) (1.2-3.4) K/uL [place] # (Auto) (0.11-0.59) K/uL Eos # (Auto) (0-0.5) K/uL Baso # (Auto) (0-0.2) K/uL VBG pH 7.33 L (7.36-7.41) VBG pCO2 (38-50) mmHg VBG pO2 mmHg VBG HCO3 mmol/L VBG O2 Saturation % VBG Base Excess mEq/L Barometric Pressure mm/Hg Sodium 135 L (136-145) mmol/L Potassium 3.8 (3.5-5.1) mmol/L Chloride 107 (98-107) mmol/L Carbon Dioxide 20 L (21-32) mmol/L Anion Gap 8.0 (3-11) BUN 13 (7-18) mg/dl Creatinine 0.64 (0.6-1.2) mg/dl Est Cr Clr Drug Dosing 117.0 ml/min Est GFR ( Amer) 144.8 Est GFR (Non-Af Amer) 124.9 BUN/Creatinine Ratio 20.8 H (10-20) Glucose 240 H (70-99) mg/dl POC Glucose 226 H (70-99) Estimat Average Glucose Hemoglobin A1c Calcium 8.0 L (8.5-10.1) mg/dl Phosphorus 3.4 (2.5-4.9) mg/dl Magnesium 1.6 L (1.8-2.4) mg/dl Total Bilirubin (0.2-1) mg/dl AST (15-37) U/L ALT (12-78) U/L Alkaline Phosphatase (45-117) U/L Total Protein (6.4-8.2) gm/dl Albumin (3.4-5.0) gm/dl Globulin (2.5-4.0) gm/dl Albumin/Globulin Ratio (0.9-2) Lipase (73-393) U/L Beta-Hydroxybutyric Acd (0.2-2.81) mg/dl Urine Color Urine Appearance (Clear) Urine pH (4.5-7.5) Ur Specific Damon (1.000-1.030) Urine Protein (Negative) Urine Glucose (UA) (Negative) Urine Ketones (Negative) Urine Blood (Negative) Urine Nitrite (Negative) Urine Bilirubin (Negative) Urine Urobilinogen (Negative) Ur Leukocyte Esterase (Negative) Urine Test (Negative) 04/26/19 04/26/19 04/26/19 Range/Units 01:01 00:43 00:20 WBC (4.8-10.8) K/uL RBC (4.2-5.4) M/uL Hgb (12.0-16.0) g/dL Hct (37-47) % MCV (80-100) fL MCH (25-34) pg MCHC (32-36) g/dL RDW Std Deviation (36.4-46.3) fL RDW Coeff of Keanu (11.5-14.5) % Plt Count (130-400) K/uL MPV (7.4-10.4) fL Immature Gran % (Auto) % Neut % (Auto) % Lymph % (Auto) % [place] % (Auto) % Eos % (Auto) % Baso % (Auto) % Immature Gran # (Auto) (0.00-0.02) K/uL Neut # (Auto) (1.4-6.5) K/uL Lymph # (Auto) (1.2-3.4) K/uL [place] # (Auto) (0.11-0.59) K/uL Eos # (Auto) (0-0.5) K/uL Baso # (Auto) (0-0.2) K/uL VBG pH (7.36-7.41) VBG pCO2 (38-50) mmHg VBG pO2 mmHg VBG HCO3 mmol/L VBG O2 Saturation % VBG Base Excess mEq/L Barometric Pressure mm/Hg Sodium (136-145) mmol/L Potassium (3.5-5.1) mmol/L Chloride (98-107) mmol/L Carbon Dioxide (21-32) mmol/L Anion Gap (3-11) BUN (7-18) mg/dl Creatinine (0.6-1.2) mg/dl Est Cr Clr Drug Dosing ml/min Est GFR ( Amer) Est GFR (Non-Af Amer) BUN/Creatinine Ratio (10-20) Glucose (70-99) mg/dl POC Glucose 138 H 142 H 135 H (70-99) Estimat Average Glucose Hemoglobin A1c Calcium (8.5-10.1) mg/dl Phosphorus (2.5-4.9) mg/dl Magnesium (1.8-2.4) mg/dl Total Bilirubin (0.2-1) mg/dl AST (15-37) U/L ALT (12-78) U/L Alkaline Phosphatase (45-117) U/L Total Protein (6.4-8.2) gm/dl Albumin (3.4-5.0) gm/dl Globulin (2.5-4.0) gm/dl Albumin/Globulin Ratio (0.9-2) Lipase (73-393) U/L Beta-Hydroxybutyric Acd (0.2-2.81) mg/dl Urine Color Urine Appearance (Clear) Urine pH (4.5-7.5) Ur Specific Damon (1.000-1.030) Urine Protein (Negative) Urine Glucose (UA) (Negative) Urine Ketones (Negative) Urine Blood (Negative) Urine Nitrite (Negative) Urine Bilirubin (Negative) Urine Urobilinogen (Negative) Ur Leukocyte Esterase (Negative) Urine Test (Negative) 04/26/19 04/25/19 04/25/19 Range/Units 00:02 22:20 22:20 WBC (4.8-10.8) K/uL RBC (4.2-5.4) M/uL Hgb (12.0-16.0) g/dL Hct (37-47) % MCV (80-100) fL MCH (25-34) pg MCHC (32-36) g/dL RDW Std Deviation (36.4-46.3) fL RDW Coeff of Keanu (11.5-14.5) % Plt Count (130-400) K/uL MPV (7.4-10.4) fL Immature Gran % (Auto) % Neut % (Auto) % Lymph % (Auto) % [place] % (Auto) % Eos % (Auto) % Baso % (Auto) % Immature Gran # (Auto) (0.00-0.02) K/uL Neut # (Auto) (1.4-6.5) K/uL Lymph # (Auto) (1.2-3.4) K/uL [place] # (Auto) (0.11-0.59) K/uL Eos # (Auto) (0-0.5) K/uL Baso # (Auto) (0-0.2) K/uL VBG pH 7.34 L (7.36-7.41) VBG pCO2 (38-50) mmHg VBG pO2 mmHg VBG HCO3 mmol/L VBG O2 Saturation % VBG Base Excess mEq/L Barometric Pressure mm/Hg Sodium 137 D (136-145) mmol/L Potassium 3.6 D (3.5-5.1) mmol/L Chloride 107 (98-107) mmol/L Carbon Dioxide 22 (21-32) mmol/L Anion Gap 8.0 (3-11) BUN 15 (7-18) mg/dl Creatinine 0.79 (0.6-1.2) mg/dl Est Cr Clr Drug Dosing 94.8 ml/min Est GFR ( Amer) 121.4 Est GFR (Non-Af Amer) 104.8 BUN/Creatinine Ratio 19.3 (10-20) Glucose 211 H (70-99) mg/dl POC Glucose 124 H (70-99) Estimat Average Glucose Hemoglobin A1c Calcium 8.7 (8.5-10.1) mg/dl Phosphorus 2.5 D (2.5-4.9) mg/dl Magnesium 1.3 L (1.8-2.4) mg/dl Total Bilirubin (0.2-1) mg/dl AST (15-37) U/L ALT (12-78) U/L Alkaline Phosphatase (45-117) U/L Total Protein (6.4-8.2) gm/dl Albumin (3.4-5.0) gm/dl Globulin (2.5-4.0) gm/dl Albumin/Globulin Ratio (0.9-2) Lipase (73-393) U/L Beta-Hydroxybutyric Acd (0.2-2.81) mg/dl Urine Color Urine Appearance (Clear) Urine pH (4.5-7.5) Ur Specific Damon (1.000-1.030) Urine Protein (Negative) Urine Glucose (UA) (Negative) Urine Ketones (Negative) Urine Blood (Negative) Urine Nitrite (Negative) Urine Bilirubin (Negative) Urine Urobilinogen (Negative) Ur Leukocyte Esterase (Negative) Urine Test (Negative) 04/25/19 04/25/19 04/25/19 Range/Units 22:19 21:13 20:51 WBC (4.8-10.8) K/uL RBC (4.2-5.4) M/uL Hgb (12.0-16.0) g/dL Hct (37-47) % MCV (80-100) fL MCH (25-34) pg MCHC (32-36) g/dL RDW Std Deviation (36.4-46.3) fL RDW Coeff of Keanu (11.5-14.5) % Plt Count (130-400) K/uL MPV (7.4-10.4) fL Immature Gran % (Auto) % Neut % (Auto) % Lymph % (Auto) % Piute % (Auto) % Eos % (Auto) % Baso % (Auto) % Immature Gran # (Auto) (0.00-0.02) K/uL Neut # (Auto) (1.4-6.5) K/uL Lymph # (Auto) (1.2-3.4) K/uL Piute # (Auto) (0.11-0.59) K/uL Eos # (Auto) (0-0.5) K/uL Baso # (Auto) (0-0.2) K/uL VBG pH 7.30 L (7.36-7.41) VBG pCO2 36 L (38-50) mmHg VBG pO2 69 mmHg VBG HCO3 17 mmol/L VBG O2 Saturation < 60.0 % VBG Base Excess -8.3 mEq/L Barometric Pressure 741.8 mm/Hg Sodium (136-145) mmol/L Potassium (3.5-5.1) mmol/L Chloride (98-107) mmol/L Carbon Dioxide (21-32) mmol/L Anion Gap (3-11) BUN (7-18) mg/dl Creatinine (0.6-1.2) mg/dl Est Cr Clr Drug Dosing ml/min Est GFR ( Amer) Est GFR (Non-Af Amer) BUN/Creatinine Ratio (10-20) Glucose (70-99) mg/dl POC Glucose 212 H 319 H* (70-99) Estimat Average Glucose Hemoglobin A1c Calcium (8.5-10.1) mg/dl Phosphorus (2.5-4.9) mg/dl Magnesium (1.8-2.4) mg/dl Total Bilirubin (0.2-1) mg/dl AST (15-37) U/L ALT (12-78) U/L Alkaline Phosphatase (45-117) U/L Total Protein (6.4-8.2) gm/dl Albumin (3.4-5.0) gm/dl Globulin (2.5-4.0) gm/dl Albumin/Globulin Ratio (0.9-2) Lipase (73-393) U/L Beta-Hydroxybutyric Acd (0.2-2.81) mg/dl Urine Color Urine Appearance (Clear) Urine pH (4.5-7.5) Ur Specific Damon (1.000-1.030) Urine Protein (Negative) Urine Glucose (UA) (Negative) Urine Ketones (Negative) Urine Blood (Negative) Urine Nitrite (Negative) Urine Bilirubin (Negative) Urine Urobilinogen (Negative) Ur Leukocyte Esterase (Negative) Urine Test (Negative) 04/25/19 04/25/19 04/25/19 Range/Units 20:14 19:05 19:05 WBC (4.8-10.8) K/uL RBC (4.2-5.4) M/uL Hgb (12.0-16.0) g/dL Hct (37-47) % MCV (80-100) fL MCH (25-34) pg MCHC (32-36) g/dL RDW Std Deviation (36.4-46.3) fL RDW Coeff of Keanu (11.5-14.5) % Plt Count (130-400) K/uL MPV (7.4-10.4) fL Immature Gran % (Auto) % Neut % (Auto) % Lymph % (Auto) % Piute % (Auto) % Eos % (Auto) % Baso % (Auto) % Immature Gran # (Auto) (0.00-0.02) K/uL Neut # (Auto) (1.4-6.5) K/uL Lymph # (Auto) (1.2-3.4) K/uL Piute # (Auto) (0.11-0.59) K/uL Eos # (Auto) (0-0.5) K/uL Baso # (Auto) (0-0.2) K/uL VBG pH (7.36-7.41) VBG pCO2 (38-50) mmHg VBG pO2 mmHg VBG HCO3 mmol/L VBG O2 Saturation % VBG Base Excess mEq/L Barometric Pressure mm/Hg Sodium 130 L (136-145) mmol/L Potassium 4.3 (3.5-5.1) mmol/L Chloride 99 (98-107) mmol/L Carbon Dioxide 17 L (21-32) mmol/L Anion Gap 14.0 H (3-11) BUN 16 (7-18) mg/dl Creatinine 0.87 (0.6-1.2) mg/dl Est Cr Clr Drug Dosing 86.1 ml/min Est GFR ( Amer) 108.1 Est GFR (Non-Af Amer) 93.2 BUN/Creatinine Ratio 18.0 (10-20) Glucose 496 H* (70-99) mg/dl POC Glucose 358 H* (70-99) Estimat Average Glucose Pending Hemoglobin A1c Pending Calcium 9.4 (8.5-10.1) mg/dl Phosphorus 4.0 (2.5-4.9) mg/dl Magnesium 1.4 L (1.8-2.4) mg/dl Total Bilirubin 1.0 (0.2-1) mg/dl AST 13 L (15-37) U/L ALT 22 (12-78) U/L Alkaline Phosphatase 123 H (45-117) U/L Total Protein 7.9 (6.4-8.2) gm/dl Albumin 3.6 (3.4-5.0) gm/dl Globulin 4.3 H (2.5-4.0) gm/dl Albumin/Globulin Ratio 0.8 L (0.9-2) Lipase 102 (73-393) U/L Beta-Hydroxybutyric Acd 43.10 H (0.2-2.81) mg/dl Urine Color Urine Appearance (Clear) Urine pH (4.5-7.5) Ur Specific Damon (1.000-1.030) Urine Protein (Negative) Urine Glucose (UA) (Negative) Urine Ketones (Negative) Urine Blood (Negative) Urine Nitrite (Negative) Urine Bilirubin (Negative) Urine Urobilinogen (Negative) Ur Leukocyte Esterase (Negative) Urine Test (Negative) 04/25/19 04/25/19 04/25/19 Range/Units 19:05 19:04 19:02 WBC 7.39 (4.8-10.8) K/uL RBC 4.65 (4.2-5.4) M/uL Hgb 14.2 (12.0-16.0) g/dL Hct 40.9 (37-47) % MCV 88.0 (80-100) fL MCH 30.5 (25-34) pg MCHC 34.7 (32-36) g/dL RDW Std Deviation 38.1 (36.4-46.3) fL RDW Coeff of Keanu 11.9 (11.5-14.5) % Plt Count 340 (130-400) K/uL MPV 10.9 H (7.4-10.4) fL Immature Gran % (Auto) 0.1 % Neut % (Auto) 59.9 % Lymph % (Auto) 27.3 % Piute % (Auto) 10.4 % Eos % (Auto) 1.6 % Baso % (Auto) 0.7 % Immature Gran # (Auto) 0.01 (0.00-0.02) K/uL Neut # (Auto) 4.42 (1.4-6.5) K/uL Lymph # (Auto) 2.02 (1.2-3.4) K/uL Piute # (Auto) 0.77 H (0.11-0.59) K/uL Eos # (Auto) 0.12 (0-0.5) K/uL Baso # (Auto) 0.05 (0-0.2) K/uL VBG pH (7.36-7.41) VBG pCO2 (38-50) mmHg VBG pO2 mmHg VBG HCO3 mmol/L VBG O2 Saturation % VBG Base Excess mEq/L Barometric Pressure mm/Hg Sodium (136-145) mmol/L Potassium (3.5-5.1) mmol/L Chloride (98-107) mmol/L Carbon Dioxide (21-32) mmol/L Anion Gap (3-11) BUN (7-18) mg/dl Creatinine (0.6-1.2) mg/dl Est Cr Clr Drug Dosing ml/min Est GFR ( Amer) Est GFR (Non-Af Amer) BUN/Creatinine Ratio (10-20) Glucose (70-99) mg/dl POC Glucose 453 H* 520 H* (70-99) Estimat Average Glucose Hemoglobin A1c Calcium (8.5-10.1) mg/dl Phosphorus (2.5-4.9) mg/dl Magnesium (1.8-2.4) mg/dl Total Bilirubin (0.2-1) mg/dl AST (15-37) U/L ALT (12-78) U/L Alkaline Phosphatase (45-117) U/L Total Protein (6.4-8.2) gm/dl Albumin (3.4-5.0) gm/dl Globulin (2.5-4.0) gm/dl Albumin/Globulin Ratio (0.9-2) Lipase (73-393) U/L Beta-Hydroxybutyric Acd (0.2-2.81) mg/dl Urine Color Urine Appearance (Clear) Urine pH (4.5-7.5) Ur Specific Damon (1.000-1.030) Urine Protein (Negative) Urine Glucose (UA) (Negative) Urine Ketones (Negative) Urine Blood (Negative) Urine Nitrite (Negative) Urine Bilirubin (Negative) Urine Urobilinogen (Negative) Ur Leukocyte Esterase (Negative) Urine Test (Negative) 04/25/19 04/25/19 Range/Units 18:44 18:44 WBC (4.8-10.8) K/uL RBC (4.2-5.4) M/uL Hgb (12.0-16.0) g/dL Hct (37-47) % MCV (80-100) fL MCH (25-34) pg MCHC (32-36) g/dL RDW Std Deviation (36.4-46.3) fL RDW Coeff of Keanu (11.5-14.5) % Plt Count (130-400) K/uL MPV (7.4-10.4) fL Immature Gran % (Auto) % Neut % (Auto) % Lymph % (Auto) % Piute % (Auto) % Eos % (Auto) % Baso % (Auto) % Immature Gran # (Auto) (0.00-0.02) K/uL Neut # (Auto) (1.4-6.5) K/uL Lymph # (Auto) (1.2-3.4) K/uL Piute # (Auto) (0.11-0.59) K/uL Eos # (Auto) (0-0.5) K/uL Baso # (Auto) (0-0.2) K/uL VBG pH (7.36-7.41) VBG pCO2 (38-50) mmHg VBG pO2 mmHg VBG HCO3 mmol/L VBG O2 Saturation % VBG Base Excess mEq/L Barometric Pressure mm/Hg Sodium (136-145) mmol/L Potassium (3.5-5.1) mmol/L Chloride (98-107) mmol/L Carbon Dioxide (21-32) mmol/L Anion Gap (3-11) BUN (7-18) mg/dl Creatinine (0.6-1.2) mg/dl Est Cr Clr Drug Dosing ml/min Est GFR ( Amer) Est GFR (Non-Af Amer) BUN/Creatinine Ratio (10-20) Glucose (70-99) mg/dl POC Glucose (70-99) Estimat Average Glucose Hemoglobin A1c Calcium (8.5-10.1) mg/dl Phosphorus (2.5-4.9) mg/dl Magnesium (1.8-2.4) mg/dl Total Bilirubin (0.2-1) mg/dl AST (15-37) U/L ALT (12-78) U/L Alkaline Phosphatase (45-117) U/L Total Protein (6.4-8.2) gm/dl Albumin (3.4-5.0) gm/dl Globulin (2.5-4.0) gm/dl Albumin/Globulin Ratio (0.9-2) Lipase (73-393) U/L Beta-Hydroxybutyric Acd (0.2-2.81) mg/dl Urine Color Yellow Urine Appearance Clear (Clear) Urine pH 5.0 (4.5-7.5) Ur Specific Damon 1.035 H (1.000-1.030) Urine Protein Negative (Negative) Urine Glucose (UA) 3+ H (Negative) Urine Ketones 4+ H (Negative) Urine Blood Negative (Negative) Urine Nitrite Negative (Negative) Urine Bilirubin Negative (Negative) Urine Urobilinogen Negative (Negative) Ur Leukocyte Esterase Negative (Negative) Urine Test Negative (Negative) PG Care Time/CCT Total # of Minutes Spent Total Time Spent with Patient: Total time spent is greater than 50% in coordination of care (as documented) at patient's floor/unit and/or counseling patient: (1) DKA (diabetic ketoacidosis) Diabetes mellitus complication detail: without coma Diabetes mellitus type: type 1 Qualified Code(s): E10.10 - Type 1 diabetes mellitus with ketoacidosis without coma (2) Acid reflux disease Esophagitis presence: esophagitis presence not specified Qualified Code(s): K21.9 - Gastro-esophageal reflux disease without esophagitis (3) Asthma Asthma complication type: uncomplicated Asthma persistence: intermittent Asthma severity: mild Qualified Code(s): J45.20 - Mild intermittent asthma, uncomplicated
[2019-04-26] MEDS ORDERED: POTASSIUM PHOS 3 MMOL/1 ML INFUSION IV STA (15:16)
[2019-04-26 15:29] LABS: Potassium 3.9 mmol/L (3.5-5.1)
[2019-04-26 15:30] LABS: Magnesium 2.2 mg/dl (1.8-2.4)
[2019-04-26] MEDS ORDERED: POTASSIUM PHOSPHATE 15 MMOL in SODIUM CHLORIDE 0.9% 250 ML IV ONE (15:45)
[2019-04-26] MEDS ORDERED: DC IV INSULIN INFUSION 1 EA DEVI ONE (16:30)
[2019-04-26] MEDS ORDERED: POTASSIUM CHLORIDE 20 MEQ TABCR PO STA (16:53)
[2019-04-26 18:27] LABS: BUN Creatinine Ratio 8.1 (10-20); Calcium 8.3 mg/dl (8.5-10.1); Creatinine Clr Calc Pharmacy 93.6 ml/min; Est GFR (African American) 119.6; Est GFR (Non-African American) 103.2; Magnesium 1.6 mg/dl (1.8-2.4); Potassium 4.3 mmol/L (3.5-5.1)
[2019-04-26 18:28] LABS: Phosphorus 3.5 mg/dl (2.5-4.9)
[2019-04-26] MEDS: PROPRANOLOL HCL 60 MG LA CAP PO SCH (21:34)
[2019-04-27 07:06] LABS: Estimated Average Glucose 263 mg/dl; Hemoglobin A1C 10.8 % (4.5-5.6)
[2019-04-27] MEDS: INSULIN ASPART 100 UNITS/ML 3 ML PEN SC SCH ×4 (07:40→16:49)
[2019-04-27] MEDS ORDERED: INSULIN HUMAN REGULAR IV BOLUS 3 UNITS in SYRINGE 0 ML IV ONE (08:00)
[2019-04-27] MEDS ORDERED: INSULIN GLARGINE SOLOSTAR 100 UNITS/ML 3 ML PEN SC SCH (08:00)
[2019-04-27] MEDS: INSULIN REGULAR 250 UNITS in SODIUM CHLORIDE 0.9% 247.5 ML IV SCH (08:16)
[2019-04-27] MEDS: FLUTICASONE HFA 220 MCG INHALER INH SCH (08:23)
[2019-04-27] MEDS: LORATADINE 10 MG TAB PO SCH (08:23)
[2019-04-27] MEDS: PANTOprazole 40 MG TAB PO SCH (08:23)
[2019-04-27] MEDS: LORazepam 0.5 MG TAB PO SCH (08:28)
[2019-04-27] MEDS ORDERED: CHOLECALCIFEROL (VITAMIN D) 400 UNITS TABLET PO SCH (09:00)
[2019-04-27 09:04] LABS: Creatinine Clr Calc Pharmacy 89.2 ml/min; Est GFR (African American) 112.7; Est GFR (Non-African American) 97.3; Potassium 4.4 mmol/L (3.5-5.1)
[2019-04-27 09:18] LABS: Beta-Hydroxybutyrate 16.55 mg/dl (0.2-2.81)
--- NOTE | 2019-04-27 13:50 | Pharmacy Report ---
Glycemic Control Progress Note - Date of Service April 27, 2019 - Scope Glycemic Pharmacist consulted for glycemic control to write orders per [facility] inpatient glycemic control protocol. - Objective Accuchecks BSG(last 24 hours):: 04/26/19 04/26/19 04/26/19 14:11 14:32 15:56 Glucose 203 H POC Glucose 198 H 209 H 04/26/19 04/26/19 04/26/19 16:44 18:02 19:52 Glucose 280 H POC Glucose 194 H 240 H 04/27/19 04/27/19 04/27/19 07:21 07:23 08:29 Glucose 440 H* POC Glucose 501 H* 498 H* 04/27/19 04/27/19 09:22 11:31 Glucose POC Glucose 341 H* 283 H HbA1c:: Hemoglobin A1c 10.8 % (4.5-5.6) H 04/25/19 19:05 - Recent Pertinent Medications The patient is currently receiving: * Basal insulin: Lantus 15 units every 24 hours * Correctional Insulin: Novolog Correction per scale ACHS Goal Range: Low 140 mg/dL - High 180 mg/dL Correction Factor: 45 mg/dL/unit * Prandial insulin: Per carb ratio of 1 unit per 10 grams CHO consumed - Outpatient Anti-Diabetic Meds insulin pump see note from 04/26/19 for settings - Assessment & Plan ASSESSMENT: * See progress note from 04/26/19 for more background info, in short: * Pt receiving SQ basal bolus insulin regimen for hyperglycemia secondary to baseline DM (outpatient regimen on hold). * Patient is currently receiving an average of 26 units of insulin per day + insulin infusion until 1630 on 04/26/19 * 15 units of basal insulin * 11 units of prandial/correctional insulin * BSGs ranging 135 - 280 mg/dl over the past 24hrs * Changes needed to insulin regimen: * AM Fasting BSG = 480 mg/dl. This is above goal range for patient based on inpatient targets and co-morbidities. Therefore Basal insulin will be increased back to home dose of 19 units of basal. * Post-prandial BSGs are decreasing appropriately today therefore will continue. * Total daily dose = ~30-50 units depending on PO intake. PLAN FOR INPATIENT GLYCEMIC CONTROL: * Increasing Lantus to 19 units SQ daily * Continuing correction factor of 45 mg/dl/unit * Continuing carb ratio of 1 unit per 10 grams CHO consumed * Continuing goal range of Low 120 mg/dL - High 160 mg/dL RECOMMENDATIONS FOR DISCHARGE: * Patient follows closely with special events planner. HbA1C is improving. Recommend to continue to follow-up with them. * Please note that the plan above was derived based on current level of insulin resistance and hospital stress. These recommendations are appropriate for inpatient admission only. Plan of care upon discharge will need to be reassessed to avoid potential outpatient hypo/hyperglycemia. Thank you.
--- NOTE | 2019-04-27 15:03 | Discharge Summary ---
Date of Service April 27, 2019 Admission HPI Per Admitting Provider Bon Cota is a 23-year-old female with history of type 1 diabetes presenting with DKA. Patient states that she woke Saturday morning at 0300 with nausea/vomiting and diarrhea. Symptoms persisted throughout the day. She took Zofran and diclofenac for pain. She reports increased thirst as well as persistent nausea as well as increased nausea after meals. Diarrhea has resolved. Patient has history of gastroparesis and restricts herself largely to pured diet with minced meats. She had a continuous glucose monitor in the past however, that is no longer in place. She reports that there was a delay in the delivery of her diabetic testing supplies, therefore, she was unable to check her blood sugar since Saturday. She has an insulin pump in place and reports that she has given herself a couple extra boluses of insulin over the last few days. She presents today in mild DKA. Blood sugar = 496, anion gap = 14, beta hydroxybutyrate positive at 43.1. UA is positive for glucose and ketones. Patient with poorly controlled diabetes, last hemoglobin A1c = 12.8 ER course: Insulin drip and normal saline solution Principal Diagnosis DKA Discharge Exam Constitutional WD/WN, vitals as above Respiratory normal respiratory effort, lungs clear to auscultation Cardiovascular RRR, no murmur, no edema Gastrointestinal (Abdomen) Inspection/Auscultation: abdomen normal to inspection and normal bowel sounds; abdomen not distended Percussion/Palpation: + abdomen tender; + abdomen not soft Musculoskeletal no cyanosis or clubbing, extremities motor strength 5/5 Skin no rashes, warm and dry Neurologic moves all extremities and awake Psychiatric A+Ox3, euthymic affect Discharge Data Allergies Allergy/AdvReac Type Severity Reaction Status Date / Time gluten Allergy Severe CELIAC'S Verified 04/25/19 18:41 DISEASE Penicillins Allergy Severe ANAPHYLAXIS Verified 04/25/19 18:41 shellfish derived Allergy Severe ANAPHYLAXIS Verified 04/25/19 18:41 apple Allergy Intermediate THROAT Verified 04/25/19 18:41 SWELLS house dust Allergy Intermediate Hives Verified 04/25/19 18:41 oxcarbazepine Allergy Intermediate Rash,hives Verified 04/25/19 18:41 and itchiness. milk Allergy Unknown SENSITIVITY Verified 04/25/19 18:41 lactose AdvReac Intermediate Gatrointestinal Verified 04/25/19 18:41 Upset sumatriptan [From Imitrex] AdvReac Intermediate INTENSIFIES Verified 04/25/19 18:41 HEADACHE Consultations 04/25/19 19:52 ED Decision to Admit Stat Hospital Course (1) DKA (diabetic ketoacidosis): * Improving, gap closed, glucose controlled * Secondary to home monitoring difficulty - patient has a continuous blood sugar monitor at home which was not working. She has anxiety around self sticking for blood sugar tests and so was not checking her sugars. * Patient with type 1 diabetes, insulin pump in place, presenting with DKA. pH = 7.3, anion gap = 14, blood sugar on arrival = 496. ed, but if patient not taking in adequate PO, will have to resume * Diabetes education -- A1c 10.8 which is an improvement -- some component of non-compliance as patient does not want to gain weight * Pharmacy consult for glycemic management * transitioned off of insulin gtt 04/26 * Discussed discharge plans - patient has received notification that her blood sugar monitor was delivered to her house. She has all necessary diabetic supplies including back up insulin and syringes and testing strips. No change to her current regimen as DKA was a result of compliance issues. She will wait to start her basal dosing until tomorrow after 24 hours from last insulin glargine dosing. (2) Gastroparesis: * Patient with history of gastroparesis secondary to her diabetes. She reports that her symptoms are typically relieved with Zofran. She does not seem to be on any promotility agents at home (3) Depression with anxiety: * Patient reports history of depression, anxiety and borderline personality disorder as well as body image issues with an active eating disorder. She is in therapy for these issues. Seems that sugars run on high side in order to prevent weight gain. * Continue home Ativan 0.5mg po daily. It does not appear that patient is on a SSRI/SNRI or mood stabilizer. * Continued Psychiatric followup (4) Chronic constipation: * Chronic. Patient with recent diarrhea * Held Linzess for diarrhea on admission, can resume on discharge (5) Asthma: * Patient with history of asthma. Presently denies cough/shortness of breath. Pulmonary exam is unremarkable * Continue loratadine daily * Continue albuterol as needed (6) Acid reflux disease: * Chronic. Stable. * Continue omeprazole p.o. daily -- may contribute to low mag (7) Hypomagnesemia: * Chronic- patient states her mother also suffers from low magnesium * Of note, patient has been taking omeprazole over the past year -- may be contributing * Mag 1.6 -- give another 2gm today and start po supplementation * follow up with outpatient provider (8) Hypophosphatemia: resolved (9) DVT prophylaxis: * Low risk -- ambulation encouraged Dispo: discharge to home Total Time Total Time Spent Total Time Spent (In Minutes): greater than 30 minutes Discharge Plan Discharge Items Patient Disposition: Home - Self-Care Reason For Visit: DKA Discharge Diagnosis: DKA Activity: Resume your previous activity Non-emergency contact: Primary Care Provider Call non-emergency contact if: you have any medication questions and your symptoms worsen Follow-up/Referrals: [facility] [place] [facility] [place] (Please, follow up at [facility]. *A nurse from this office will call you to arrange this appoitnment. The office is located in [address] of [facility], next to [facility]. If you have any questions, call the office at [phone].) Tamara Palomo PA-C [Primary Care Provider] - 05/04/19 11:00 am (Please, follow up with Tamara Palomo on SaturdayMay 04 at 11:00 am. *If you need to change this appointment, call the office at [phone].) Diet: Carb Consistent or DM2 and Gluten Free Addtl Attending Provider Instructions: (1) DKA (diabetic ketoacidosis): Resume your insulin pump and home glucose monitoring as usual except you should hold your basal dosing until tomorrow to account for the dose of insulin glargine today given at 8:30 am. Please let your provider know if your sugars are running above 250 or below 70. Please make sure you are checking your blood sugars before meals and before bed with a glucometer if your glucose monitor is not working again so that you can maintain controls of your blood sugars. Your A1c was 10.8 (2) Hypomagnesemia: Please take 400 mg of magnesium twice per day. Please tell your provider if this causes diarrhea Pending Studies at Discharge: No Stand-Alone Forms: My [facility], Smoking Cessation Medications and DC Order Prescriptions: New magnesium oxide 400 mg (241.3 mg magnesium) Tablet 400 mg PO BID Qty: 60 RF: 0 cholecalciferol (vitamin D3) [Vitamin D3] 10 mcg (400 unit) Tablet 400 unit PO QAM Qty: 30 RF: 0 Continued ondansetron HCl [Zofran] 8 mg tablet 8 mg PO DAILY PRN (Reason: Nausea) RF: 0 lorazepam [Ativan] 0.5 mg tablet 0.5 mg PO DAILY RF: 0 epinephrine [EpiPen] 0.3 mg/0.3 mL auto-injector 0.3 mg IM DIRECTED PRN (Reason: Anaphylaxis) RF: 0 fluticasone propionate [Flonase Allergy Relief] 50 mcg/actuation spray,suspension 1 sprays INTNAS DAILY PRN (Reason: Allergy Symptoms) RF: 0 diclofenac sodium 50 mg tablet,delayed release (DR/EC) 50 mg PO DIRECTED PRN (Reason: Migraine Headache) RF: 0 eszopiclone [Lunesta] 1 mg tablet 1 mg PO HS MDD 1 MG PRN (Reason: Sleep) RF: 0 Basaglar KwikPen U-100 Insulin 100 unit/mL (3 mL) insulin pen 19 units SQ DAILY PRN (Reason: Novolog Pump Failure) RF: 0 Novolog U-100 Insulin aspart 100 unit/mL solution See Rx Instructions SQ DAILY Qty: 30 RF: 5 (DME) Ketostix strip See Rx Instructions .ROUTE .MEDSUPPLY Qty: 100 RF: 2 cholecalciferol (vitamin D3) 50,000 unit tablet See Rx Instructions PO .COMPLEX Qty: 14 RF: 0 loratadine [Claritin] 10 mg tablet 10 mg PO DAILY Qty: 30 RF: 6 vitamin E succinate 400 unit tablet 400 units PO DAILY RF: 0 albuterol sulfate [Ventolin HFA] 90 mcg/actuation HFA aerosol inhaler 2 puffs INH Q4H PRN (Reason: Shortness Of Breath Or Wheezing) Qty: 18 RF: 5 (DME) Aerochamber MV spacer See Rx Instructions .ROUTE .MEDSUPPLY Qty: 1 RF: 0 Linzess 145 mcg capsule 145 mcg PO DAILY Qty: 30 RF: 11 omeprazole 40 mg capsule,delayed release(DR/EC) 40 mg PO DAILYBB RF: 0 Flovent HFA 220 mcg/actuation HFA aerosol inhaler 1 puff INHALATION BID RF: 0 propranolol 60 mg capsule,extended release 24 hr 60 mg PO HS RF: 0 Discharge Orders: Discharge Order (Routine); Ordered 04/27/19 Ordered By: Amelie Aparicio Admission Data Admit Date/Time: 04/25/19 20:51 Attending Provider: Enrike Ayala Admit Provider: Tata Bates Primary Care Provider: Tamara Palomo Other Providers: Enrike Ayala Supervising Physician Co-Signing Physician Notes I supervised Amelie Aparicio NP on this patient's care. I examined the patient today independently of her. I discussed the plan of care with her with the plan being as written in her note except for any following changes/exceptions: None. In no distress today. Gets into trouble because she won't check her sugar with fingersticks when her continuous glucose monitor stops working. Discussed that this isn't a great idea. She is hoping to get a needle-less glucose testing device, but isn't sure if her insurance will pay for it. I encouraged her to keep up with her insulin regimen whether or not her monitor is working and do fingersticks as needed.
[2019-04-27] MEDS ORDERED: MAGNESIUM OXIDE 400 MG TAB PO SCH (15:15)
[2019-04-27 15:53] VITALS: PULSE 84; TEMP 97.9; O2SAT 96
[2019-04-27] MEDS: MAGNESIUM SULFATE / D5W 1 GM/100 ML BAG IV SCH ×2 (16:01→16:51)
[2019-04-27 16:39] VITALS: BP 105/65
[2019-05-05 06:07] LABS: Est GFR (Non-African American) 120.8
[2019-05-05 06:08] LABS: Est GFR (African American) 145.7; Est GFR (Non-African American) 125.7
[2019-05-05 06:09] LABS: Hematocrit (blood only) 40.9 % (37-52); Hemoglobin 14.2 g/dL (12.0-18.0); Red Blood Count 4.65 M/uL (4.2-6.1)
[2019-05-05 06:09] LABS: Est GFR (African American) > 150.0
== END 2019-04-27 18:39 | disposition home or self-care (01) | DRG 639 ==
LOC: EDSEX → ED 18:09 → 2E 20:51 → SUATTDRO 20:51 → 2E 21:23

== ENCOUNTER 2019-11-18 17:04 | Inpatient (IN) ==
[2019-11-18 18:02] LABS: Appearance Urine Clear (Clear); Bacteria Urine Automated 2+ (Negative); Bilirubin Urine Negative (Negative); Blood Urine Negative (Negative); Color Urine Yellow; Epithelial Cell Urine Auto >30 /lpf (0-5); Glucose Urine UA Trace (Negative); Ketones Urine Negative (Negative); Leukocyte Esterase Urine 3+ (Negative); Nitrite Urine Negative (Negative); Protein Urine Negative (Negative); Urobilinogen Urine Negative (Negative)
[2019-11-18 18:19] LABS: Basophils # (auto) 0.03 K/uL (0-0.2); Basophils % (auto) 0.4 %; Eosinophils % (auto) 1.4 %; Hematocrit (blood only) 41.6 % (37-47); Hemoglobin 14.6 g/dL (12.0-16.0); Immature Granulocytes # (auto) 0.01 K/uL (0.00-0.02); Immature Granulocytes % (auto) 0.1 %; Lymphocytes # (auto) 2.32 K/uL (1.2-3.4); Lymphocytes % (auto) 32.9 %; Mean Corpuscular Hemoglobin 31.1 pg (25-34); Mean Corpuscular Hgb Conc 35.1 g/dL (32-36); Mean Corpuscular Volume 88.5 fL (80-100); Mean Platelet Volume 11.5 fL (7.4-10.4); Monocytes # (auto) 0.72 K/uL (0.11-0.59); Monocytes % (auto) 10.2 %; Neutrophils # (auto) 3.87 K/uL (1.4-6.5); Platelet Count 286 K/uL (130-400); RDW Coefficient of Variation 11.9 % (11.5-14.5); RDW Standard Deviation 38.2 fL (36.4-46.3); White Blood Count 7.05 K/uL (4.8-10.8)
[2019-11-18 18:35] LABS: Alanine Aminotransferase 16 U/L (12-78); Albumin Level 3.8 gm/dl (3.4-5.0); Aspartate Aminotransferase 12 U/L (15-37); Blood Urea Nitrogen 5 mg/dl (7-18); Calcium 8.8 mg/dl (8.5-10.1); Carbon Dioxide 29 mmol/L (21-32); Chloride 108 mmol/L (98-107); Est GFR (African American) 134.9; Est GFR (Non-African American) 116.4; Glucose 154 mg/dl (70-99); Potassium 4.3 mmol/L (3.5-5.1); Sodium 142 mmol/L (136-145)
[2019-11-18 18:46] LABS: Alkaline Phosphatase 89 U/L (45-117); Bilirubin,Total 1.7 mg/dl (0.2-1); Globulin 3.8 gm/dl (2.5-4.0); Total Protein 7.6 gm/dl (6.4-8.2)
[2019-11-18 18:58] LABS: Acetaminophen < 2 ug/ml (10-30); Salicylate < 1.7 mg/dl (2.8-20)
[2019-11-18 19:05] LABS: Amphetamines+Metham, Urine Neg (Neg); Barbiturates, Urine Neg (Neg); Benzodiazepine, Urine Neg (Neg); Cocaine, Urine Neg (Neg); MDMA (Ecstacy), Urine Neg (Neg); Methadone, Urine Neg (Neg); Opiate, Urine Neg (Neg); Phencyclidine, Urine Neg (Neg)
--- NOTE | 2019-11-18 19:23 | Emergency Department Note ---
Impression & Plan Mood disorder, Suicidal ideation ED Provider Note INFORMANT: [Patient] ED PROVIDER(S): Florentino Bernal MD CHIEF COMPLAINT: Suicidal PLAN: Disposition: Admitted Condition: [Good] MEDICAL DECISION MAKING: Patient presented with ongoing suicidal ideation that has escalated. Her outpatient therapist referred her to the emergency department for evaluation and inpatient treatment. The patient is voluntary. She has been admitted before, once here, and once that [place]. The patient had an unremarkable CBC and chemistry panel. Slight hyperglycemia although she is a diabetic. The patient toxicology screen was unremarkable. She does have an abnormal findings on urinalysis but has no urinary symptoms. Urine culture will be performed. The patient notes an ongoing long history with migraines. She notes a migraine currently but denies any changes and declines any medication for this. Given the suicidal ideation and her psychiatric history coupled with a concern from her outpatient provider inpatient treatment was felt to be most appropriate. The patient was evaluated by the ED psychiatric transplant case manager. Referrals made. Patient was accepted by [address] [place] [address] for inpatient treatment. Triage Nursing notes reviewed and agree them. Vital Signs: reviewed and remarkable for [no significant abnormalities] Differential diagnosis: Mood disorder, infection, hypoglycemia, electrolyte abnormalities, cardiac sources, intracerebral event, toxicologic, trauma, neurologic, as well as other pathologies. Diagnostics interpreted by me: Imaging studies: Deferred Consultation(s): [none] HPI: The patient is a 24 year old female who presents to the Emergency Room with complaints of suicidal ideation. This started several weeks ago and is is escalating. The patient also notes the following associated symptoms, recurrent migraines and fluctuating blood sugars. The patient is a type I diabetic. She has a history of mood disorder and has been admitted twice before. Her outpatient therapist was concerned by her escalating suicide ideation and directed her to the emergency department for inpatient treatment. The patient is voluntary at this point. The patient does have a history of migraines and does note having migraines on a daily basis. She feels that the stress she is under is contributing to the migraines. The patient has found no relieving factors. Current pain is rated as 4/10. Pt denies LOC, fevers, chills, diaphoresis, visual changes, neck pain, chest pain, breathing difficulties, nausea, vomiting, abdominal pain, back pain, melena, hematochezia, urinary symptoms, numbness, weakness, lymphadenopathy, rash, or other complaints. ROS: See above HPI for pertinent positives & negatives. A total of [10] systems reviewed and were otherwise negative. PAST MEDICAL HISTORY:[See Below] bipolar disorder, IBS, diabetes PAST SURGICAL HISTORY:[See Below] FAMILY HISTORY:[See Below] SOCIAL HISTORY:[See Below] single HOME MEDICATIONS:[See Below] ALLERGIES:[See Below] VITALS:[See Below] PHYSICAL EXAMINATION: GENERAL: Awake, alert, well appearing, no distress HENT: Normocephalic, atraumatic. EYES: PERRL. EOMI. Normal conjunctiva. Sclera non-icteric. NECK: Supple. Normal inspection. No nuchal rigidity. FROM. No JVD or bruit. RESPIRATORY: Clear. Breath sounds equal. No wheezes. No rhonchi. Normal respiratory effort. CARDIAC: Normal rate. Regular rhythm. No murmurs. No rubs. No JVD. ABDOMEN: Soft, non distended. No tenderness to palpation. No rebound or guarding. No masses. MUSCULOSKELETAL: Unremarkable. No edema. No discoloration. Gross motor strength symmetric. NEURO: Cranial nerves 2-12 grossly intact. Normal sensorium. No sensory or motor deficits noted. Speech normal. No pronator drift. SKIN: No rash or jaundice noted. LYMPH: No adenopathy. PSYCH: Flat affect, depressed mood. Positive suicidal ideation by overdose of pills. No homicidal ideation. ED COURSE: [Critical Care:] [None] Florentino Bernal MD Past Med/Surg History Medical History (Updated 11/18/19 @ 19:19 by Florentino Bernal MD) Acid reflux disease (~2013) Allergic rhinitis Asthma (Chronic) Bipolar 1 disorder (Chronic) Followed by [facility] Body image disorder (Chronic) Borderline personality disorder Cataract (lens) fragments in eye following cataract surgery, bilateral Celiac disease Depression with anxiety (Chronic) Diabetic gastroparesis associated with type 1 diabetes mellitus (~2017) Gilbert's syndrome IBS (irritable bowel syndrome) Irritable bowel syndrome with constipation Lazy eye of right side (Acute) Low bone mass Lumbar radiculopathy Migraines (Chronic) Vitamin D deficiency Surgical History History of cataract surgery Social History (Updated 11/12/19 @ 13:45 by Kalani L Brobeck) Preferred Language: Greenlandic Communication Ability: Effective Hearing Ability: Normal 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 Required: No Beliefs That Will Affect Care: None marital status: Single Current Living Situation: Alone current occupational status: employed current occupation: [employer] Feels Safe at Home: Yes Smoking Status: Never smoker Tobacco Type: cigars ; Age Started Using Tobacco: 18 ; Age Quit Using Tobacco: 20 ; Cigarettes Per Day: 1 per month ; Second Hand Exposure: Yes ; Hx Alcohol Use: Yes Alcohol type: beer and wine Alcohol Intake Frequency: Rarely Hx Substance Use: Yes Childhood Exposure to Second-Hand Smoke: Yes caffeine: Yes Dental Care, Regularly: Yes Physical Activity Frequency: 3-4 Times per Week Physical Activity Frequency Comment: walks Seatbelt Use: always Sunscreen Use: Yes (when in the sun for an extended time) Allergies Allergies Allergy/AdvReac Type Severity Reaction Status Date / Time gluten Allergy Severe CELIAC'S Verified 11/12/19 13:36 DISEASE Penicillins Allergy Severe ANAPHYLAXIS Verified 11/12/19 13:36 shellfish derived Allergy Severe ANAPHYLAXIS Verified 11/12/19 13:36 apple Allergy Intermediate THROAT Verified 11/12/19 13:36 SWELLS house dust Allergy Intermediate Hives Verified 11/12/19 13:36 oxcarbazepine Allergy Intermediate Rash,hives Verified 11/12/19 13:36 and itchiness. milk Allergy Unknown SENSITIVITY Verified 11/12/19 13:36 lactose AdvReac Intermediate Gatrointestinal Verified 11/12/19 13:36 Upset sumatriptan [From Imitrex] AdvReac Intermediate INTENSIFIES Verified 11/12/19 13:36 HEADACHE Home Meds Home Medications Medication Instructions Recorded Confirmed lorazepam 0.5 mg tablet 0.5 mg PO DAILY PRN 01/21/18 11/18/19 ondansetron HCl 8 mg tablet 8 mg PO DAILY PRN tab 01/21/18 11/18/19 insulin glargine 100 unit/mL (3 19 units SQ DAILY PRN ml 11/26/18 11/18/19 mL) subcutaneous pen Flovent HFA 1 puff INHALATION BID 04/25/19 11/18/19 sertraline 100 mg PO DAILY 07/01/19 11/18/19 Previous Rx's Medication Instructions Recorded acetone (urine) test #100 ea 03/23/19 insulin aspart U-100 100 unit/mL See Rx Instructions SQ DAILY #30 ml 03/23/19 subcutaneous solution linaclotide 145 mcg capsule 145 mcg PO DAILY #30 cap 03/24/19 albuterol sulfate 90 mcg/actuation 2 puffs INH Q4H PRN #18 gm 03/27/19 aerosol inhaler inhalational spacing device #1 ea 03/27/19 cholecalciferol (vitamin D3) 1,250 See Rx Instructions PO .COMPLEX 04/01/19 mcg (50,000 unit) tablet #14 tab azelastine 137 mcg (0.1 %) nasal 2 spray INTNAS DAILY #30 ml 06/26/19 spray aerosol glucagon HCl 1 mg solution for 1 mg IM Q20M PRN #1 ea 07/06/19 injection omeprazole 40 mg capsule,delayed See Rx Instructions .ROUTE 07/13/19 release .COMPLEX #90 capsule propranolol 60 mg capsule,24 60 mg PO HS #90 cap 08/05/19 hr,extended release epinephrine 0.3 mg/0.3 mL 0.3 mg IM DIRECTED PRN #2 ea 09/11/19 injection, auto-injector ketorolac 10 mg tablet 10 mg PO Q6H PRN #6 tab 11/12/19 Results & Data (ED) Vital Signs Vital Signs - 24 hr 11/18/19 17:13 11/18/19 20:39 Temperature 37 C Temperature Source Oral Pulse Rate 88 Pulse Rate [Finger] 69 Respiratory Rate 18 17 Respiratory Effort / Characteristics Non-Labored Respiratory Depth Normal Blood Pressure 103/73 Blood Pressure [Left Arm] 99/67 L Blood Pressure Mean 83 Blood Pressure Mean [Left Arm] 77 Pulse Oximetry 97 99 Oxygen Delivery Method Room Air Room Air Sepsis Recent Fever Within 48 Hours No Sepsis New/Unexplained Change in Mental Status No Sepsis Action Taken by Nursing No Action Required Laboratory Data Result diagrams: 11/18/19 18:01 11/18/19 18:01 Lab Results 11/18/19 11/18/19 11/18/19 Range/Units 17:30 17:30 18:01 WBC 7.05 (4.8-10.8) K/uL RBC 4.70 (4.2-5.4) M/uL Hgb 14.6 (12.0-16.0) g/dL Hct 41.6 (37-47) % MCV 88.5 (80-100) fL MCH 31.1 (25-34) pg MCHC 35.1 (32-36) g/dL RDW Std Deviation 38.2 (36.4-46.3) fL RDW Coeff of Keanu 11.9 (11.5-14.5) % Plt Count 286 (130-400) K/uL MPV 11.5 H (7.4-10.4) fL Immature Gran % (Auto) 0.1 % Neut % (Auto) 55.0 % Lymph % (Auto) 32.9 % [place] % (Auto) 10.2 % Eos % (Auto) 1.4 % Baso % (Auto) 0.4 % Neut # (Auto) 3.87 (1.4-6.5) K/uL Lymph # (Auto) 2.32 (1.2-3.4) K/uL [place] # (Auto) 0.72 H (0.11-0.59) K/uL Eos # (Auto) 0.10 (0-0.5) K/uL Baso # (Auto) 0.03 (0-0.2) K/uL Immature Gran # (Auto) 0.01 (0.00-0.02) K/uL Sodium (136-145) mmol/L Potassium (3.5-5.1) mmol/L Chloride (98-107) mmol/L Carbon Dioxide (21-32) mmol/L Anion Gap (3-11) BUN (7-18) mg/dl Creatinine (0.6-1.2) mg/dl Est Cr Clr Drug Dosing Est GFR ( Amer) Est GFR (Non-Af Amer) BUN/Creatinine Ratio (10-20) Glucose (70-99) mg/dl Calcium (8.5-10.1) mg/dl Total Bilirubin (0.2-1) mg/dl AST (15-37) U/L ALT (12-78) U/L Alkaline Phosphatase (45-117) U/L Total Protein (6.4-8.2) gm/dl Albumin (3.4-5.0) gm/dl Globulin (2.5-4.0) gm/dl Albumin/Globulin Ratio (0.9-2) TSH (0.300-4.500) uIu/ml Urine Color Yellow Urine Appearance Clear (Clear) Urine pH 8.0 H (4.5-7.5) Ur Specific [place] 1.010 (1.000-1.030) Urine Protein Negative (Negative) Urine Glucose (UA) Trace H (Negative) Urine Ketones Negative (Negative) Urine Blood Negative (Negative) Urine Nitrite Negative (Negative) Urine Bilirubin Negative (Negative) Urine Urobilinogen Negative (Negative) Ur Leukocyte Esterase 3+ H (Negative) Urine WBC (Auto) 5-10 H (0-5) /hpf Urine RBC (Auto) 5-10 H (0-4) /hpf U Hyaline Cast (Auto) 1-5 (0-5) /lpf U Epithel Cells (Auto) >30 H (0-5) /lpf Urine Bacteria (Auto) 2+ H (Negative) Salicylates (2.8-20) mg/dl Urine Opiates Screen Neg (Neg) Ur Methadone, Qual Neg (Neg) Acetaminophen (10-30) ug/ml Urine Barbiturates Neg (Neg) Ur Phencyclidine (PCP) Neg (Neg) U Amphetamin/Meth Scrn Neg (Neg) MDMA (Ecstasy) Screen Neg (Neg) U Benzodiazepines Scrn Neg (Neg) Ur Cocaine Metabolite Neg (Neg) U Marijuana (THC) Screen Neg (Neg) Ethyl Alcohol mg/dL (0-3) mg/dl 11/18/19 11/18/19 11/18/19 Range/Units 18:01 18:01 18:01 WBC (4.8-10.8) K/uL RBC (4.2-5.4) M/uL Hgb (12.0-16.0) g/dL Hct (37-47) % MCV (80-100) fL MCH (25-34) pg MCHC (32-36) g/dL RDW Std Deviation (36.4-46.3) fL RDW Coeff of Keanu (11.5-14.5) % Plt Count (130-400) K/uL MPV (7.4-10.4) fL Immature Gran % (Auto) % Neut % (Auto) % Lymph % (Auto) % [place] % (Auto) % Eos % (Auto) % Baso % (Auto) % Neut # (Auto) (1.4-6.5) K/uL Lymph # (Auto) (1.2-3.4) K/uL [place] # (Auto) (0.11-0.59) K/uL Eos # (Auto) (0-0.5) K/uL Baso # (Auto) (0-0.2) K/uL Immature Gran # (Auto) (0.00-0.02) K/uL Sodium 142 (136-145) mmol/L Potassium 4.3 (3.5-5.1) mmol/L Chloride 108 H (98-107) mmol/L Carbon Dioxide 29 (21-32) mmol/L Anion Gap 5.0 (3-11) BUN 5 L (7-18) mg/dl Creatinine 0.72 (0.6-1.2) mg/dl Est Cr Clr Drug Dosing Not Reportable Est GFR ( Amer) 134.9 Est GFR (Non-Af Amer) 116.4 BUN/Creatinine Ratio 7.0 L (10-20) Glucose 154 H (70-99) mg/dl Calcium 8.8 (8.5-10.1) mg/dl Total Bilirubin 1.7 H (0.2-1) mg/dl AST 12 L (15-37) U/L ALT 16 (12-78) U/L Alkaline Phosphatase 89 (45-117) U/L Total Protein 7.6 (6.4-8.2) gm/dl Albumin 3.8 (3.4-5.0) gm/dl Globulin 3.8 (2.5-4.0) gm/dl Albumin/Globulin Ratio 1.0 (0.9-2) TSH 2.380 (0.300-4.500) uIu/ml Urine Color Urine Appearance (Clear) Urine pH (4.5-7.5) Ur Specific [place] (1.000-1.030) Urine Protein (Negative) Urine Glucose (UA) (Negative) Urine Ketones (Negative) Urine Blood (Negative) Urine Nitrite (Negative) Urine Bilirubin (Negative) Urine Urobilinogen (Negative) Ur Leukocyte Esterase (Negative) Urine WBC (Auto) (0-5) /hpf Urine RBC (Auto) (0-4) /hpf U Hyaline Cast (Auto) (0-5) /lpf U Epithel Cells (Auto) (0-5) /lpf Urine Bacteria (Auto) (Negative) Salicylates < 1.7 L (2.8-20) mg/dl Urine Opiates Screen (Neg) Ur Methadone, Qual (Neg) Acetaminophen < 2 L (10-30) ug/ml Urine Barbiturates (Neg) Ur Phencyclidine (PCP) (Neg) U Amphetamin/Meth Scrn (Neg) MDMA (Ecstasy) Screen (Neg) U Benzodiazepines Scrn (Neg) Ur Cocaine Metabolite (Neg) U Marijuana (THC) Screen (Neg) Ethyl Alcohol mg/dL < 3.0 (0-3) mg/dl Discharge Plan Visit Data Chief Complaint: Mental Health Evaluation Stated Complaint: MENTAL HEALTH EVAL ED Provider: Florentino Bernal Discharge Problem: Mood disorder, Suicidal ideation Discharge Instructions Interventions: ED Discharge Assessment Last Done: 11/18/19 21:04
[2019-11-18] MEDS ORDERED: ACETAMINOPHEN 325 MG TAB PO PRN (20:25)
[2019-11-18] MEDS ORDERED: SODIUM CHLORIDE 0.65% NA SOLN 45 ML (OCEAN) PRN (20:25)
[2019-11-18] MEDS ORDERED: BISMUTH SUBSALICYLATE PER ML OMNICELL CHARGE PO PRN (20:25)
[2019-11-18] MEDS ORDERED: ALUMINUM/MAGNESIUM SUSP 30 ML UDC PO PRN (20:25)
[2019-11-18] MEDS ORDERED: MAGNESIUM HYDROXIDE SUSP 30 ML UDC PO PRN (20:25)
[2019-11-18] MEDS ORDERED: NON-FORMULARY MEDICATION (Glucagon Hcl [Glucagon (Hcl) Emergency Kit] 1 MG) IM PRN (21:23)
[2019-11-18] MEDS ORDERED: ALBUTEROL HFA 8 GM INHALER INH PRN (21:23)
[2019-11-18] MEDS ORDERED: ONDANSETRON 8MG OD TAB PO PRN (21:23)
[2019-11-18] MEDS ORDERED: LORazepam 0.5 MG TAB PO PRN (21:23)
[2019-11-18] MEDS ORDERED: PHARMACY GLYCEMIC MGMT CONSULT PRN (22:32)
[2019-11-18] MEDS: PROPRANOLOL HCL 60 MG LA CAP PO SCH (22:44)
[2019-11-18] MEDS ORDERED: INSULIN GLARGINE SOLOSTAR 100 UNITS/ML 3 ML PEN SC ONE (22:45)
[2019-11-18] MEDS: INSULIN ASPART 100 UNITS/ML 3 ML PEN SC SCH (22:54)
[2019-11-19] MEDS: LINZESS: ORDER AWAITING ACTION SCH ×2 (01:43→09:28)
[2019-11-19] MEDS: AZELASTINE: ORDER AWAITING ACTION SCH ×2 (01:43→09:27)
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
[2019-11-19] MEDS ORDERED: PHARMACY GLYCEMIC MGMT CONSULT STA (08:30)
[2019-11-19] MEDS ORDERED: SERTRALINE HCL 50 MG TABLET PO SCH (09:00)
[2019-11-19] MEDS ORDERED: INSULIN GLARGINE SOLOSTAR 100 UNITS/ML 3 ML PEN SC SCH ×2 (09:00)
[2019-11-19] MEDS ORDERED: SERTRALINE HCL 100 MG TABLET PO SCH (09:00)
[2019-11-19] MEDS: INSULIN ASPART 100 UNITS/ML 3 ML PEN SC SCH ×4 (09:15→21:10)
[2019-11-19] MEDS: PANTOprazole 40 MG TAB PO SCH (09:17)
[2019-11-19] MEDS: FLUTICASONE FUROATE 200MCG 14 PUFFS/INHALER INH SCH (09:18)
--- NOTE | 2019-11-19 11:13 | Pharmacy Report ---
Glycemic Control Consultation - Date of Service November 19, 2019 - Scope Scope: Glycemic Pharmacist consulted for glycemic control and to write orders per [facility] inpatient glycemic control protocol. - Objective Weight: 59 kg Accuchecks BSG (last 24hrs): 11/18/19 11/18/19 11/19/19 18:01 22:52 08:04 Glucose 154 H POC Glucose 168 H 374 H* 11/19/19 08:07 Glucose POC Glucose 379 H* Laboratory Data (last 24hrs): 11/18/19 18:01 Potassium 4.3 Carbon Dioxide 29 Anion Gap 5.0 Creatinine 0.72 Est Cr Clr Drug Dosing Not Reportable - Recent Pertinent Medications Outpatient Anti-diabetic Regimen: * Novolog pump; CF of 45 and CR of 8 ; goal 110 00-04 ; 0.9 units/hr 04-09 ; 0.75 units/hr 09-12 ; 0.8 units/hr 12-18 ; 0.85 units/hr 18-21 ; 0.8 units/hr 21-00 ; 0.95 units/hr * A1c = 9.0 % 10/13/19 Risk Factors for Insulin Resistance: * Diet: t1dm - Assessment & Plan Assessment & Plan: ASSESSMENT: * 24 year old admitted to [facility]. Type 1 diabetic managed on novolog pump at home. Follows [facility] * Transitioned off insulin pump last night / given 10 units of basal insulin to help with transition * Appears home insulin pump is ~20 units/day of basal / fasting BSG this AM elevated at 379, likely due to not enough basal given last evening * Plan to given 15 units x 1 now - will add scale for Lantus for HS if BSGs still elevated PLAN FOR INPATIENT GLYCEMIC CONTROL: * Basal insulin * Lantus 15 x 1 * Lantus HS 0 units for BSG < 220, 5 units for BSG 220 or greater * Bolus insulin * NovoLog per scale ACHS or Q6hrs while NPO * Goal Range: Low 110 mg/dL - High 140 mg/dL * Correction Factor: 45 mg/dL/unit * Nutritional / Prandial insulin per carb ratio of 1 unit per 8 grams CHO consumed * Please note that the plan above was derived based on current level of insulin resistance and hospital stress. These recommendations are appropriate for inpatient admission only. Plan of care upon discharge will need to be reassessed to avoid potential outpatient hypo/hyperglycemia. Thank you.
--- NOTE | 2019-11-19 11:18 | Pharmacy Report ---
Pharmacy Glycemic Short Note 2 - Date of Service November 19, 2019 - Glycemic Short BSG Results (Last 24 hours): 11/18/19 11/18/19 11/19/19 18:01 22:52 08:04 Glucose 154 H POC Glucose 168 H 374 H* 11/19/19 08:07 Glucose POC Glucose 379 H* OUTPATIENT ANTIDIABETIC REGIMEN: * ASSESSMENT: * PLAN FOR INPATIENT GLYCEMIC CONTROL: * Hold outpatient oral diabetes medications * Basal insulin * Lantus [] units SQ BID * Bolus insulin * NovoLog per scale ACHS or Q6hrs while NPO * Goal Range: Low [] mg/dL - High [] mg/dL * Correction Factor: [] mg/dL/unit * Nutritional / Prandial insulin per carb ratio of 1 unit per [] grams CHO consumed PLAN FOR DISCHARGE: *
[2019-11-19] MEDS ORDERED: KETOROLAC TROMETHAMINE 10 MG TABLET PO PRN (12:53)
[2019-11-19] MEDS ORDERED: KETOROLAC TROMETHAMINE 10 MG TABLET PO ONE (13:00)
[2019-11-19] MEDS: PROPRANOLOL HCL 60 MG LA CAP PO SCH (21:05)
[2019-11-19] MEDS: INSULIN GLARGINE SOLOSTAR 100 UNITS/ML 3 ML PEN SC SCH (21:06)
[2019-11-20] MEDS: AZELASTINE: ORDER AWAITING ACTION SCH ×2 (00:23→09:00)
[2019-11-20] MEDS: LINZESS: ORDER AWAITING ACTION SCH ×2 (00:23→09:01)
[2019-11-20] MEDS: PANTOprazole 40 MG TAB PO SCH (08:55)
[2019-11-20] MEDS: FLUTICASONE FUROATE 200MCG 14 PUFFS/INHALER INH SCH (08:56)
[2019-11-20] MEDS: INSULIN ASPART 100 UNITS/ML 3 ML PEN SC SCH ×4 (08:57→20:57)
[2019-11-20] MEDS ORDERED: SERTRALINE HCL 50 MG TABLET PO SCH (09:00)
--- NOTE | 2019-11-20 09:03 | Psychiatric Progress Note ---
Date of Service November 20, 2019 Impression / Recommendations Impression 24-year-old single individual, biologically female but identifies as non-binary - preferring pronouns "they", "them", and "their". Pt lives alone in [place], has a history of borderline personality disorder and is in DBT at the [facility] psych clinic, as well as depression, anxiety NOS, eating disorder, self-injurious behavior, and chronic suicidality who presents on referral from their DBT therapist after endorsing active suicidal thoughts with a plan to overdose, having made a goodbye video on their phone yesterday. They endorsed multiple psychosocial stressors which have contributed to worsening mood in the past week, poor support, and feels overwhelmed by stressors. Pt has been noncompliant with their SSRI, and has not been taking it for weeks-months. Pt signed in voluntarily for treatment, and sertraline has been resumed in addition to prescription for as needed Ativan. Pt has a history of trauma but appears to be benefiting from DBT, coordination with outpatient clinicians will be helpful. Pt is participating appropriately in group programming, but continues to endorse episodes of active SI and remains unable to contract for safety outside of the inpatient hospital setting. Inpatient treatment is medically necessary due to the severity of symptoms and risk for suicide if discharge. (1) Suicidal ideation: 11/18 -continue voluntary hospitalization, suicide checks for safety. -SI is chronic, with a longstanding plan to overdose and access to multiple medications as well as a bottle of Tylenol they have specifically for that purpose. Ideally, safety plan would involve someone else holding medications during periods of instability; unfortunately, pt states they have no supports and that there is no one they would be willing to involve in her safety plan. Pt is in DBT and outpatient therapist is aware of chronic SI. 11/19 - Reports mild improvement in severity of SI, but thoughts continue with greater intensity than patient feels they could safely manage outside of the hospital setting - Recognizes complete resolution of SI is likely not an obtainable goal during this acute hospitalization, given history of chronic SI for most of their life; however, feels SI continues to be too active to be able to contract for safety if discharged (2) Borderline personality disorder: 11/18 -coordinate care with outpatient clinicians at the [facility], and obtain records to clarify diagnoses. -Consistent boundaries. Continue DBT upon discharge. 11/19 - Demonstrating decent insight into BPD diagnosis and behavioral tendencies related to this condition. - Continue DBT groups and individual counseling (3) Depression with anxiety: 11/18 -patient reports sertraline has been beneficial in the past, but has been noncompliant with it recently. Resume 50 mg daily and titrate as tolerated. Psychoeducation provided regarding importance of medication adherence for optimal effect, and potential for need for a higher dose to adequately treat anxiety. Pt has been diagnosed with anxiety NOS in the past, with symptoms of NESHA, panic, and PTSD. -Continue home dose of lorazepam as needed. 11/19 - Titrate sertraline to 100mg starting tomorrow morning - would recommend target dose of at least 150mg, patient reports being on that dose for only a few weeks before stopping medications. Need for additional titration can be discussed with outpatient psychiatric provider - Reports mild improvement in episodes of heightened anxiety; however, baseline anxiety remains a 11/12 (10=most intense) - Discussed utilization of hydroxyzine as needed for anxiety/sleep - adjust dosing as needed, patient reports history of excessive sedation. Lorazepam remains available as needed - Pt openly discusses history of "dissociation" and "flashbacks", often triggered by childhood memories - treatment trajectory remains appropriate, but higher suspicion of PTSD is present (4) Eating disorder: 11/18 -history of diagnosis of eating disorder NOS, recently restricting with 10 pound weight loss. Although not a focus of treatment here, will provide education regarding the importance of good nutrition for optimal functioning and health, monitor p.o. intake. -Vital signs stable, no electrolyte abnormalities (5) Type I diabetes mellitus: 11/18 -continue home medications, diabetic/gluten-free diet, and consult diabetic pharmacist. (6) Migraines: 11/18 -acetaminophen as needed, if ineffective may use Toradol. Patient reports a bad reaction to Imitrex. -Follow-up with neurology (appointment scheduled next month). 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 Chief Complaint "Yesterday wasn't horrendous, I just noticed a lot of anxiety." Review of Systems Notes Constitutional: reports fatigue and poor sleep last evening Cardiovascular: denied Respiratory: denied Gastrointestinal: denied Neurological: denied Psychiatric: denies symptoms other than stated above Total of at least 10 systems reviewed, pertinent positives as above and in HPI. Sleep Information Total Hours of Sleep: 5.25 Meal Information Percent Meal Consumed - Breakfast: 100 Percent Meal Consumed - Lunch: 100 Percent Meal Consumed - Dinner: 75 Subjective Subjective [Documentation in this particular progress note will reflect patient's non- binary gender status - preferred pronouns are "they", "them", and "their"]. Patient was seen & assessed and interval progress reviewed with treatment team. Staff report the patient has been attending group programming and participating appropriately. Pt is noted to be somewhat withdrawn, but has opened up to staff during individual sessions. Pt was seen today to assess progress since admission. Pt states that they continue to have difficulty sleeping, which is not a new issue. Pt notes that "yesterday wasn't horrendous, I just noticed a lot of anxiety." Pt states that anxiety at baseline is "a 7 out of 10" (10=most intense), but states that it has continued to be elevated beyond that level re lated to numerous stressors. Pt states that they are committed to titrating sertraline to an effective dose, but recognizes that it may take several weeks before benefits are observed. Pt does report frustration related to treatment, stating they are not seeing the anticipated benefit of their numerous treatment efforts which often leads the patient to feeling defeated. We discussed recommendation to continue to lean further into treatment during those periods of time rather than withdraw. Pt states that there are no identifiable supports outside of their profession network. Pt states even their therapist is new to them and they are still working to build rapport. Pt remains committed to treatment at this time, and is willing to follow-up with currently established providers as recommended. Pt is agreeable with increasing sertraline to 100mg daily starting tomorrow morning. Pt does inquire about medications to assist with episodic anxiety, and use of hydroxyzine and home prescription for lorazepam were reviewed. Pt does endorse ongoing SI, primarily passive but with episodes of active thoughts with plan to overdose. Pt is able to reasonably discuss that a goal for complete resolution of SI is unlikely during this hospitalization, but does feel that current thoughts continue to be too severe to allow the patient to be able to contract for safety outside of the hospital at this time. Pt denied additional needs or concerns at this time. Physical Exam Psychiatric Orientation: alert, oriented x 3 and cooperative (and pleasant ) Apperance: appropriately dressed (casually; wearing jeans and a flannel shirt), appropriately groomed (wearing corrective lenses, numerous facial and ear piercings) and appeared stated age Eye Contact: good eye contact Motor Behavior: steady gait and station and no abnormal motor movements Speech: normal rate/rhythm/volume of speech Affect: + anxious affect and mood congruent with affect Mood: + depressed mood and + anxious mood ("The anxiety is still a lot higher than I'm used to") Thought Process: goal directed thought process, clear/coherent thought process and thought association intact Thought Content: reality based without delusions, + hopelessness (episodically, generally linked with SI), + worthlessness and + loneliness (reporting limited to no outpatient supports) Suicidal Thoughts: + reports suicidal thoughts and + reports suicidal plan (co nsistent plan to overdose on medications) Pt reports SI is more passive overall, but they continue to experience episodes of active SI on the unit. Unable to contract for safety outside of the hospital setting. Homicidal Thoughts: denies homicidal thoughts Hallucinations: no auditory hallucinations and no visual hallucinations Cognition: recent memory grossly intact, attention grossly intact and language grossly intact Estimated Intelligence: consistent with education level Insight: good insight Judgement: + fair judgement Vital Signs (Past 24 Hours) Last Vital Signs Temp 36.6 C 11/20/19 05:49 Pulse 98 H 11/20/19 05:49 Resp 16 11/20/19 05:49 BP 104/66 11/20/19 05:49 Pulse Ox 99 11/18/19 21:31 Results & Data ([facility]) Laboratory Results Laboratory Results - last 24 hr 11/19/19 11/19/19 11/19/19 12:33 16:57 19:49 POC Glucose 164 H 202 H 63 L* 11/19/19 11/19/19 11/20/19 19:51 20:17 08:28 POC Glucose 64 L* 126 H 268 H Current Inpatient Medications Current Inpatient Medications: Current Inpatient Medications Acetaminophen (Tylenol) 650 mg PO Q4H PRN PRN Reason: Headache or Minor Fever Stop: 12/18/19 20:24 Al Hydrox/Mg Hydrox/Simethicone (Maalox) 30 ml PO Q4H PRN PRN Reason: GI Upset Stop: 12/18/19 20:24 Albuterol (Ventolin Hfa) 2 puffs INH Q4H PRN PRN Reason: Shortness Of Breath Or Wheezing Stop: 12/18/19 21:22 Bismuth Subsalicylate (Kaopectate) 15 ml PO PRN PRN PRN Reason: Loose Stool Stop: 12/18/19 20:24 Fluticasone Furoate (Arnuity Ellipta 200mcg) 1 puffs INH DAILY RANDOLPH Stop: 12/19/19 08:59 Last Admin: 11/20/19 08:56 Dose: 1 puffs Documented by: Hydroxyzine HCl (Vistaril) 50 mg PO HSZ PRN PRN Reason: Insomnia Stop: 12/18/19 20:24 Hydroxyzine HCl (Vistaril) 25 mg PO Q4H PRN PRN Reason: Anxiety Stop: 12/18/19 20:24 Insulin Aspart (Novolog Flexpen) 0 units SC ACHS [facility]; Protocol Stop: 12/18/19 22:44 Last Admin: 11/20/19 08:57 Dose: 9 units Documented by: Insulin Glargine (Lantus Solostar Pen) 15 units SC QAM [facility]; Protocol Stop: 12/19/19 08:59 Last Admin: 11/19/19 09:17 Dose: 15 units Documented by: Insulin Glargine (Lantus Solostar Pen) 0 units SC HS [facility]; Protocol Stop: 12/19/19 21:59 Last Admin: 11/19/19 21:06 Dose: Not Given Documented by: Ketorolac Tromethamine (Toradol) 10 mg PO Q6H PRN PRN Reason: pain Stop: 11/24/19 12:52 Lorazepam (Ativan) 0.5 mg PO HS PRN PRN Reason: Anxiety Stop: 12/18/19 21:22 Magnesium Hydroxide (Milk Of Magnesia) 30 ml PO DAILY PRN PRN Reason: Constipation Stop: 12/18/19 20:24 Miscellaneous (Order Awaiting Action) 1 ea N/A QS RANDOLPH Stop: 12/19/19 00:00 Last Admin: 11/20/19 09:00 Dose: Not Given Documented by: Miscellaneous (Order Awaiting Action) 1 ea N/A QS RANDOLPH Stop: 12/19/19 00:00 Last Admin: 11/20/19 09:01 Dose: Not Given Documented by: Miscellaneous Information (Consult Glycemic Management Pharmacy) 1 ea N/A UD PRN PRN Reason: Consult Stop: 12/18/19 22:31 Ondansetron HCl (Zofran Odt) 8 mg PO DAILY PRN PRN Reason: Nausea Stop: 12/18/19 21:22 Pantoprazole Sodium (Protonix) 40 mg PO DAILY RANDOLPH Stop: 12/19/19 08:59 Last Admin: 11/20/19 08:55 Dose: 40 mg Documented by: Propranolol HCl (Inderal La) 60 mg PO HS RANDOLPH Stop: 12/18/19 21:59 Last Admin: 11/19/19 21:05 Dose: 60 mg Documented by: Sertraline HCl (Zoloft) 50 mg PO DAILY RANDOLPH Stop: 12/20/19 08:59 Last Admin: 11/20/19 08:55 Dose: 50 mg Documented by: Sodium Chloride (Dunlo Nasal) 1 - 2 sprays NA PRN PRN PRN Reason: Nasal Dryness/Congestion Stop: 12/18/19 20:24 Mental Health & Subst Abuse Tx Therapist Name of Therapist: Cary Levin Post Discharge Appointments Primary Care Physician Name Of Family Doctor: Dr. Darian Murray and Tamara Palomo PA-C Other #1: Name of Aftercare Appointment: [facility] - DBT Group Phone Number of Aftercare Appointment: [phone] Date of Aftercare Appointment: 11/25/19 Time of Aftercare Appointment: 3:30 p.m. Aftercare Appointment Comment: [address] [facility], [place] [address]
[2019-11-20] MEDS ORDERED: LORazepam 0.5 MG TAB PO PRN (09:47)
[2019-11-20] MEDS ORDERED: INSULIN GLARGINE SOLOSTAR 100 UNITS/ML 3 ML PEN SC ONE (11:30)
--- NOTE | 2019-11-20 14:32 | Pharmacy Report ---
Pharmacy Glycemic Short Note 2 - Date of Service November 20, 2019 - Glycemic Short BSG Results (Last 24 hours): 11/19/19 11/19/19 11/19/19 16:57 19:49 19:51 POC Glucose 202 H 63 L* 64 L* 11/19/19 11/20/19 11/20/19 20:17 08:28 13:00 POC Glucose 126 H 268 H 230 H OUTPATIENT ANTIDIABETIC REGIMEN: * Novolog pump; CF of 45 and CR of 8 ; goal 110 00-04 ; 0.9 units/hr 04-09 ; 0.75 units/hr 09-12 ; 0.8 units/hr 12-18 ; 0.85 units/hr 18-21 ; 0.8 units/hr 21-00 ; 0.95 units/hr * A1c = 9.0 % 10/13/19 ASSESSMENT: 11/20/19 * Fasting blood sugar 268mg/dl this AM, increase basal to home dose of 20 units daily (given late today at 1300). * Patient did have hypoglycemia yesterday prior to HS check, possibly d/t gastroparesis and analog insulin use, will consider changing Novolog to Regular insulin if this happens again. 11/19/19 * 24 year old admitted to [facility]. Type 1 diabetic managed on novolog pump at home. Follows [facility] * Transitioned off insulin pump last night / given 10 units of basal insulin to help with transition * Appears home insulin pump is ~20 units/day of basal / fasting BSG this AM elevated at 379, likely due to not enough basal given last evening * Plan to given 15 units x 1 now - will add scale for Lantus for HS if BSGs still elevated PLAN FOR INPATIENT GLYCEMIC CONTROL: * Basal insulin - increase * Lantus 20 units SQ daily * Bolus insulin * NovoLog per scale ACHS or Q6hrs while NPO * Goal Range: Low 110 mg/dL - High 140 mg/dL * Correction Factor: 45 mg/dL/unit * Nutritional / Prandial insulin per carb ratio of 1 unit per 8 grams CHO consumed
[2019-11-20] MEDS: INSULIN GLARGINE SOLOSTAR 100 UNITS/ML 3 ML PEN SC SCH (21:00)
[2019-11-20] MEDS: PROPRANOLOL HCL 60 MG LA CAP PO SCH (21:02)
[2019-11-21] MEDS ORDERED: SERTRALINE HCL 100 MG TABLET PO SCH (09:00)
[2019-11-21] MEDS: FLUTICASONE FUROATE 200MCG 14 PUFFS/INHALER INH SCH (09:35)
[2019-11-21] MEDS: PANTOprazole 40 MG TAB PO SCH (09:35)
[2019-11-21] MEDS: INSULIN GLARGINE SOLOSTAR 100 UNITS/ML 3 ML PEN SC SCH (09:38)
[2019-11-21] MEDS: INSULIN ASPART 100 UNITS/ML 3 ML PEN SC SCH ×4 (09:39→21:12)
--- NOTE | 2019-11-21 10:37 | Psychiatric Progress Note ---
Date of Service November 21, 2019 Impression / Recommendations Impression 24-year-old single individual, biologically female but identifies as non-binary - preferring pronouns "they", "them", and "their," and goes by "Minh," who lives alone in [place], has a history of borderline personality disorder and is in DBT at the [facility] psych clinic, as well as depression, anxiety NOS, eating disorder, self-injurious behavior, and chronic suicidality. Referred by DBT therapist after endorsing active suicidal thoughts with a plan to overdose, and making a goodbye video on their phone. They endorsed multiple psychosocial stressors which have contributed to worsening mood in the past week, poor support, and feels overwhelmed by stressors. Pt has been noncompliant with sertraline, and has not been taking it for weeks-months. Sertraline has been resumed in addition to prn Ativan and hydroxyzine. Pt is participating appropriately in group programming, but continues to endorse SI and remains unable to contract for safety outside of the inpatient hospital setting. Inpatient treatment is medically necessary due to the severity of symptoms and risk for suicide if discharged. (1) Suicidal ideation: 11/18 -continue voluntary hospitalization, suicide checks for safety. -SI is chronic, with a longstanding plan to overdose and access to multiple medications as well as a bottle of Tylenol they have specifically for that purpose. Ideally, safety plan would involve someone else holding medications during periods of instability; unfortunately, pt states they have no supports and that there is no one they would be willing to involve in a safety plan. Pt is in DBT and outpatient therapist is aware of chronic SI. 11/19 - Reports mild improvement in severity of SI, but thoughts continue with greater intensity than patient feels they could safely manage outside of the hospital setting - Recognizes complete resolution of SI is likely not an obtainable goal during this acute hospitalization, given history of chronic SI for most of their life; however, feels SI continues to be too active to be able to contract for safety if discharged 11/20 -Suicidal thoughts and urges to self injure continue, patient working on coping strategies. (2) Borderline personality disorder: 11/18 -coordinate care with outpatient clinicians at the [facility] psych clinic, and obtain records to clarify diagnoses. -Consistent boundaries. Continue DBT upon discharge. 11/19 - Demonstrating decent insight into BPD diagnosis and behavioral tendencies related to this condition. - Continue DBT groups and individual counseling (3) Depression with anxiety: 11/18 -patient reports sertraline has been beneficial in the past, but has been noncompliant with it recently. Resume 50 mg daily and titrate as tolerated. Psychoeducation provided regarding importance of medication adherence for optimal effect, and potential for need for a higher dose to adequately treat anxiety. Pt has been diagnosed with anxiety NOS in the past, with symptoms of NESHA, panic, and PTSD. -Continue home dose of lorazepam as needed. 11/19 - Titrate sertraline to 100mg starting tomorrow morning - would recommend target dose of at least 150mg, patient reports being on that dose for only a few weeks before stopping medications. Need for additional titration can be discussed with outpatient psychiatric provider - Reports mild improvement in episodes of heightened anxiety; however, baseline anxiety remains a 11/12 (10=most intense) - Discussed utilization of hydroxyzine as needed for anxiety/sleep - adjust dosing as needed, patient reports history of excessive sedation. Lorazepam remains available as needed - Pt openly discusses history of "dissociation" and "flashbacks", often tri ggered by childhood memories - treatment trajectory remains appropriate, but higher suspicion of PTSD is present 11/20 -Sertraline increased to 100 mg daily, consider further titration over the next several days. Continue lorazepam and hydroxyzine as needed. (4) Eating disorder: 11/18 -history of diagnosis of eating disorder NOS, recently restricting with 10 pound weight loss. Although not a focus of treatment here, will provide education regarding the importance of good nutrition for optimal functioning and health, monitor p.o. intake. -Vital signs stable, no electrolyte abnormalities 11/20 -eating well here, continue to focus on good nutrition for optimal functioning, mentally and physically. (5) Type I diabetes mellitus: 11/18 -continue home medications, diabetic/gluten-free diet, and consult diabetic pharmacist. (6) Migraines: 11/18 -acetaminophen as needed, if ineffective may use Toradol. Patient reports a bad reaction to Imitrex. -Follow-up with neurology (appointment scheduled next month). 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 Chief Complaint "I'm here (sighs loudly)". Review of Systems Notes Daily mild headaches, improved with caffeine Sleep Information Total Hours of Sleep: 7.5 Meal Information Percent Meal Consumed - Breakfast: 100 Percent Meal Consumed - Lunch: 100 Percent Meal Consumed - Dinner: 75 Subjective Subjective Patient was seen & assessed and interval progress reviewed with nursing and social work. Staff report the patient has been struggling on the unit, left group because a peer was talking about the devil which was overwhelming, and expressed concerns about the potential for getting into confrontations with peers. Reported to treatment goal of working on managing anxiety, attending all groups and working on discharge safety plan. Having frequent one-to-one sessions with staff, talked about seeing the world in black and white and a tendency to jump from one crisis to another. Talked about pattern of stopping medications when feeling "worthless," which then precipitates a diabetic and/or psychiatric crisis. On my assessment, patient reports feeling overwhelmed by the other patients, "triggered" by a patient expressing persecutory beliefs, related to fear of anger. Notes "my instinct is to run, hide," and feels the need "a timeout, space." Also reports a difficult conversation with employer, who wanted to know why patient was in the hospital, which they felt uncomfortable about. Sleep was better with hydroxyzine 25 mg, felt able to relax and fall asleep better, but woke up overnight and was unable to fall asleep after being awoken for vital signs this morning. Tolerating sertraline 100 mg daily well. Physical Exam Psychiatric Orientation: alert, oriented x 3 and cooperative Apperance: appropriately dressed, appropriately groomed and appeared stated age Petite, dressed in black pants and a black "[place]" t-shirt. Long brown hair that appears clean and brushed, facial piercings, wearing glasses, seated in no acute distress on the edge of the bed. Eye Contact: + fair eye contact Motor Behavior: steady gait and station and no abnormal motor movements Speech: normal rate/rhythm/volume of speech Affect: + depressed affect, + anxious affect and mood congruent with affect Mood: + depressed mood and + anxious mood Thought Process: goal directed thought process Thought Content: + cognitive distortions Suicidal Thoughts: + reports suicidal thoughts Ongoing suicidal thoughts and urges to self injure, but has not acted on them here. Homicidal Thoughts: denies homicidal thoughts Hallucinations: no auditory hallucinations and no visual hallucinations Cognition: recent memory grossly intact, attention grossly intact and language grossly intact Estimated Intelligence: consistent with education level Insight: + fair insight Judgement: + fair judgement Vital Signs (Past 24 Hours) Last Vital Signs Temp 36.7 C 11/21/19 06:31 Pulse 68 11/21/19 06:32 Resp 18 11/21/19 06:31 BP 84/56 L 11/21/19 06:32 Pulse Ox 99 11/18/19 21:31 Results & Data ([facility]) Laboratory Results Laboratory Results - last 24 hr 11/20/19 11/20/19 11/20/19 13:00 16:36 20:49 POC Glucose 230 H 89 155 H 11/21/19 08:02 POC Glucose 197 H Current Inpatient Medications Current Inpatient Medications: Current Inpatient Medications Acetaminophen (Tylenol) 650 mg PO Q4H PRN PRN Reason: Headache or Minor Fever Stop: 12/18/19 20:24 Al Hydrox/Mg Hydrox/Simethicone (Maalox) 30 ml PO Q4H PRN PRN Reason: GI Upset Stop: 12/18/19 20:24 Albuterol (Ventolin Hfa) 2 puffs INH Q4H PRN PRN Reason: Shortness Of Breath Or Wheezing Stop: 12/18/19 21:22 Bismuth Subsalicylate (Kaopectate) 15 ml PO PRN PRN PRN Reason: Loose Stool Stop: 12/18/19 20:24 Fluticasone Furoate (Arnuity Ellipta 200mcg) 1 puffs INH DAILY [facility] Stop: 12/19/19 08:59 Last Admin: 11/21/19 09:35 Dose: 1 puffs Documented by: Hydroxyzine HCl (Vistaril) 50 mg PO HSZ PRN PRN Reason: Insomnia Stop: 12/18/19 20:24 Last Admin: 11/20/19 21:03 Dose: 50 mg Documented by: Hydroxyzine HCl (Vistaril) 25 mg PO Q4H PRN PRN Reason: Anxiety Stop: 12/18/19 20:24 Insulin Aspart (Novolog Flexpen) 0 units SC ACHS [facility]; Protocol Stop: 12/18/19 22:44 Last Admin: 11/21/19 09:39 Dose: 10 units Documented by: Insulin Glargine (Lantus Solostar Pen) 20 units SC QAM [facility]; Protocol Stop: 12/21/19 08:59 Last Admin: 11/21/19 09:38 Dose: 20 units Documented by: Ketorolac Tromethamine (Toradol) 10 mg PO Q6H PRN PRN Reason: pain Stop: 11/24/19 12:52 Lorazepam (Ativan) 0.5 mg PO DAILY PRN PRN Reason: Anxiety Stop: 12/18/19 21:22 Magnesium Hydroxide (Milk Of Magnesia) 30 ml PO DAILY PRN PRN Reason: Constipation Stop: 12/18/19 20:24 Miscellaneous Information (Consult Glycemic Management Pharmacy) 1 ea N/A UD PRN PRN Reason: Consult Stop: 12/18/19 22:31 Ondansetron HCl (Zofran Odt) 8 mg PO DAILY PRN PRN Reason: Nausea Stop: 12/18/19 21:22 Pantoprazole Sodium (Protonix) 40 mg PO DAILY [facility] Stop: 12/19/19 08:59 Last Admin: 11/21/19 09:35 Dose: 40 mg Documented by: Propranolol HCl (Inderal La) 60 mg PO HS [facility] Stop: 12/18/19 21:59 Last Admin: 11/20/19 21:02 Dose: 60 mg Documented by: Sertraline HCl (Zoloft) 100 mg PO DAILY [facility] Stop: 12/21/19 08:59 Last Admin: 11/21/19 09:35 Dose: 100 mg Documented by: Sodium Chloride (Story Nasal) 1 - 2 sprays NA PRN PRN PRN Reason: Nasal Dryness/Congestion Stop: 12/18/19 20:24 Mental Health & Subst Abuse Tx Psychiatrist Name of Psychiatrist: [facility] - Dr. Sahu Psychiatrist's Date of Appointment with Psychiatrist: 12/01/19 Time of Appointment with Psychiatrist: 9:00 a.m. Psychiatric Appointment Comment: [address] [place] [address] Therapist Name of Therapist: [facility] - Cary Levin Therapist's Date of Therapist Appointment: 11/26/19 Time of Therapist Appointment: 3:00 p.m. Therapy Appointment Comment: [address] [place] [address] Post Discharge Appointments Primary Care Physician [place] Of [place] [facility] [place] Darian Murray Primary Care Provider Appointment Comment: [address] [place] [address] Contact Information Discharge Discharge [address]: [address] [place] [id number]
[2019-11-21] MEDS ORDERED: GLUCAGON FOR INJ 1 MG VIAL IM PRN (12:45)
[2019-11-21] MEDS ORDERED: GLUCOSE 10 TABS/TUBE PO PRN (12:45)
[2019-11-21] MEDS ORDERED: CARBOHYDRATES FOR HYPOGLYCEMIA PO PRN (12:45)
[2019-11-21] MEDS ORDERED: INSULIN HUMAN REGULAR SC SCH (12:45)
[2019-11-21] MEDS ORDERED: DEXTROSE 50% 50 ML SYRINGE IV PRN (12:45)
[2019-11-21] MEDS ORDERED: GLUCOSE 40% GEL 15 GM TUBE PO PRN (12:45)
--- NOTE | 2019-11-21 15:07 | Pharmacy Report ---
Pharmacy Glycemic Short Note 2 - Date of Service November 21, 2019 - Glycemic Short BSG Results (Last 24 hours): 11/20/19 11/20/19 11/21/19 16:36 20:49 08:02 POC Glucose 89 155 H 197 H 11/21/19 11/21/19 11/21/19 12:13 12:32 14:40 POC Glucose 60 L* 85 97 OUTPATIENT ANTIDIABETIC REGIMEN: * Novolog pump; CF of 45 and CR of 8 ; goal 110 00-04 ; 0.9 units/hr 04-09 ; 0.75 units/hr 09-12 ; 0.8 units/hr 12-18 ; 0.85 units/hr 18-21 ; 0.8 units/hr 21-00 ; 0.95 units/hr * A1c = 9.0 % 10/13/19 ASSESSMENT: 11/21/19 * Fasting BSG continues to improve at 197 mg/dL this AM, continue home basal dose * Lunch time BSG trending down to 60 mg/dl - per nurse patient given orange juice and on recheck 85 mg/dL , loosened CR slightly 11/20/19 * Fasting blood sugar 268mg/dl this AM, increase basal to home dose of 20 units daily (given late today at 1300). * Patient did have hypoglycemia yesterday prior to HS check, possibly d/t gastroparesis and analog insulin use, will consider changing Novolog to Regular insulin if this happens again. 11/19/19 * 24 year old admitted to [facility]. Type 1 diabetic managed on novolog pump at home. Follows [facility] * Transitioned off insulin pump last night / given 10 units of basal insulin to help with transition * Appears home insulin pump is ~20 units/day of basal / fasting BSG this AM elevated at 379, likely due to not enough basal given last evening * Plan to given 15 units x 1 now - will add scale for Lantus for HS if BSGs still elevated PLAN FOR INPATIENT GLYCEMIC CONTROL: * Basal insulin - continue * Lantus 20 units SQ daily * Bolus insulin - loosen * NovoLog per scale ACHS or Q6hrs while NPO * Goal Range: Low 110 mg/dL - High 140 mg/dL * Correction Factor: 45 mg/dL/unit * Nutritional / Prandial insulin per carb ratio of 1 unit per 10 grams CHO consumed
[2019-11-21] MEDS: PROPRANOLOL HCL 60 MG LA CAP PO SCH (21:15)
--- NOTE | 2019-11-22 08:34 | Psychiatric Progress Note ---
Date of Service November 22, 2019 Impression / Recommendations Impression 24-year-old single individual, biologically female but identifies as non-binary - preferring pronouns "they", "them", and "their," and goes by "Minh," who lives alone in [place], has a history of borderline personality disorder and is in DBT at the [facility] psych clinic, as well as depression, anxiety NOS, eating disorder, self-injurious behavior, and chronic suicidality. Referred by DBT therapist after endorsing active suicidal thoughts with a plan to overdose, and making a goodbye video. Patient endorsed multiple psychosocial stressors which have contributed to worsening mood in the past week, poor support, and feeling overwhelmed by stressors. Chronic medication noncompliance with sertraline, and had not been taking it for weeks-months. Sertraline was resumed in addition to prn Ativan and hydroxyzine. Patient is participating appropriately in group programming, but continues to endorse SI and remains unable to contract for safety outside of the inpatient hospital setting. Inpatient treatment is medically necessary due to the severity of symptoms and risk for suicide if discharged. (1) Suicidal ideation: 11/18 -continue voluntary hospitalization, suicide checks for safety. -SI is chronic, with a longstanding plan to overdose and access to multiple medications as well as a bottle of Tylenol they have specifically for that purpose. Ideally, safety plan would involve someone else holding medications during periods of instability; unfortunately, pt states they have no supports and that there is no one they would be willing to involve in a safety plan. Pt is in DBT and outpatient therapist is aware of chronic SI. 11/19 - Reports mild improvement in severity of SI, but thoughts continue with greater intensity than patient feels they could safely manage outside of the hospital setting - Recognizes complete resolution of SI is likely not an obtainable goal during this acute hospitalization, given history of chronic SI for most of their life; however, feels SI continues to be too active to be able to contract for safety if discharged 11/20 -Suicidal thoughts and urges to self injure continue, patient working on coping strategies. (2) Borderline personality disorder: 11/18 -coordinate care with outpatient clinicians at the [facility] psych clinic, and obtain records to clarify diagnoses. -Consistent boundaries. Continue DBT upon discharge. 11/19 - Demonstrating decent insight into BPD diagnosis and behavioral tendencies related to this condition. - Continue DBT groups and individual counseling (3) Depression with anxiety: 11/18 -patient reports sertraline has been beneficial in the past, but has been noncompliant with it recently. Resume 50 mg daily and titrate as tolerated. Psychoeducation provided regarding importance of medication adherence for optimal effect, and potential for need for a higher dose to adequately treat anxiety. Pt has been diagnosed with anxiety NOS in the past, with symptoms of NESHA, panic, and PTSD. -Continue home dose of lorazepam as needed. 11/19 - Titrate sertraline to 100mg starting tomorrow morning - would recommend target dose of at least 150mg, patient reports being on that dose for only a few weeks before stopping medications. Need for additional titration can be discussed with outpatient psychiatric provider - Reports mild improvement in episodes of heightened anxiety; however, baseline anxiety remains a 11/12 (10=most intense) - Discussed utilization of hydroxyzine as needed for anxiety/sleep - adjust dosing as needed, patient reports history of excessive sedation. Lorazepam remains available as needed - Pt openly discusses history of "dissociation" and "flashbacks", often siobhan ered by childhood memories - treatment trajectory remains appropriate, but higher suspicion of PTSD is present 11/20 -Sertraline increased to 100 mg daily, consider further titration over the next several days. Continue lorazepam and hydroxyzine as needed. 11/21 -Reduce sertraline to 75 mg at patient's request due to concerns for nausea. Continue to offer ondansetron as needed (4) Eating disorder: 11/18 -history of diagnosis of eating disorder NOS, recently restricting with 10 pound weight loss. Although not a focus of treatment here, will provide education regarding the importance of good nutrition for optimal functioning and health, monitor p.o. intake. -Vital signs stable, no electrolyte abnormalities 11/20 -eating well here, continue to focus on good nutrition for optimal functioning, mentally and physically. 11/21 -patient would benefit from working with a zipper measurer; states she has seen one at [facility] but treatment was not eating disorder focused. (5) Type I diabetes mellitus: 11/18 -continue home medications, diabetic/gluten-free diet, and consult diabetic pharmacist. (6) Migraines: 11/18 -acetaminophen as needed, if ineffective may use Toradol. Patient reports a bad reaction to Imitrex. -Follow-up with neurology (appointment scheduled next month). 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 Chief Complaint " Just more BS from other patients". Review of Systems Sleep Information Total Hours of Sleep: 6.5 Meal Information Percent Meal Consumed - Breakfast: 100 Percent Meal Consumed - Lunch: 50 Percent Meal Consumed - Dinner: 60 Subjective Subjective Patient was seen & assessed and interval progress reviewed with nursing and social work. Staff report the patient continues to report SI and although feels safe in the hospital, does not feel safe outside the hospital. Her aunt called the unit, as she had called the police and reported the patient missing. They spoke on the phone, but patient did not want to involve and in treatment and would not allow staff to talk to her. Axel also called and the patient did not want to talk to her and didn't want staff to talk to her. The patient reported nausea, glucose was 60, and received ondansetron 8 mg. The patient had an individual counseling session and reported feeling emotionally and physically anxious and exhausted, discussed difficult childhood with no support from family, and current lack of supports/friends. Requested another one-to-one session last evening, and wanted to discuss emotions after a male patient asked if she was single, which the patient felt was inappropriate. Staff assisted with practicing assertiveness and to confront the peer, and patient was able to talk to the peer, but did not feel that he understood. Requested and received hydroxyzine 25 mg last night. On my assessment, the patient reports anxiety related to interactions with peers, some of whom she feels have inappropriate behavior. Reported feeling stuck as wants to communicate better, but often does not do this as fears that emotions will be dismissed or rejected, saying people "make me feel guilty for even bringing up an issue of another person," so then holds it in and feels worse. Reports anxiety about food, stating she does not like food to touch, "I hate it," and it bothers her if other people's food is touching as well. If food is touching on the plate, she will not eat any of it, and notes she did not eat most of her dinner because of this. She says she is eating more here than she would at home as she does not want to have to stay in the hospital longer. States "I just want to be in average 24-year-old." Request to decrease sertraline to 75 mg due to concerns for nausea. Discussed frustration that there are many groups and programs available through the [place], but only for [facility] students, so patient cannot access them, and feels this is not fair. Physical Exam Psychiatric Orientation: alert, oriented x 3 and cooperative Apperance: appropriately dressed, appropriately groomed and appeared stated age Casually dressed in black pants and a black shirt. Long brown hair that is appears clean and brushed. Wearing glasses, multiple facial piercings. Eye Contact: + fair eye contact Motor Behavior: steady gait and station and no abnormal motor movements Speech: normal rate/rhythm/volume of speech Affect: + depressed affect, + anxious affect and mood congruent with affect Mood: + depressed mood and + anxious mood Thought Process: goal directed thought process Thought Content: + cognitive distortions, + hopelessness, + worthlessness and + loneliness Suicidal Thoughts: + reports suicidal thoughts Homicidal Thoughts: denies homicidal thoughts Hallucinations: no auditory hallucinations Cognition: recent memory grossly intact, attention grossly intact and language grossly intact Insight: + fair insight Judgement: + fair judgement Vital Signs (Past 24 Hours) Last Vital Signs Temp 36.7 C 11/22/19 06:42 Pulse 90 11/22/19 06:42 Resp 18 11/22/19 06:42 BP 93/61 L 11/22/19 06:42 Pulse Ox 99 11/18/19 21:31 Results & Data ([facility]) Laboratory Results Laboratory Results - last 24 hr 11/21/19 11/21/19 11/21/19 12:13 12:32 14:40 POC Glucose 60 L* 85 97 11/21/19 11/21/19 11/22/19 16:55 20:51 08:27 POC Glucose 98 101 H 179 H Current Inpatient Medications Current Inpatient Medications: Current Inpatient Medications Acetaminophen (Tylenol) 650 mg PO Q4H PRN PRN Reason: Headache or Minor Fever Stop: 12/18/19 20:24 Al Hydrox/Mg Hydrox/Simethicone (Maalox) 30 ml PO Q4H PRN PRN Reason: GI Upset Stop: 12/18/19 20:24 Albuterol (Ventolin Hfa) 2 puffs INH Q4H PRN PRN Reason: Shortness Of Breath Or Wheezing Stop: 12/18/19 21:22 Bismuth Subsalicylate (Kaopectate) 15 ml PO PRN PRN PRN Reason: Loose Stool Stop: 12/18/19 20:24 Dextrose (Dextrose 50%) 25 - 50 ml IV UD PRN; Protocol PRN Reason: Hypoglycemia Protocol Stop: 12/21/19 12:44 Fluticasone Furoate (Arnuity Ellipta 200mcg) 1 puffs INH DAILY [facility] Stop: 12/19/19 08:59 Last Admin: 11/21/19 09:35 Dose: 1 puffs Documented by: Glucagon (Glucagen) 1 mg IM UD PRN; Protocol PRN Reason: Hypoglycemia Protocol Stop: 12/21/19 12:44 Glucose (Glucose 40%) 15 - 30 gm PO UD PRN; Protocol PRN Reason: Hypoglycemia Protocol Stop: 12/21/19 12:44 Glucose (Dex4 Glucose) 4 - 8 tabs PO UD PRN; Protocol PRN Reason: Hypoglycemia Protocol Stop: 12/21/19 12:44 Hydroxyzine HCl (Vistaril) 50 mg PO HSZ PRN PRN Reason: Insomnia Stop: 12/18/19 20:24 Last Admin: 11/20/19 21:03 Dose: 50 mg Documented by: Hydroxyzine HCl (Vistaril) 25 mg PO Q4H PRN PRN Reason: Anxiety Stop: 12/18/19 20:24 Last Admin: 11/21/19 22:19 Dose: 25 mg Documented by: Insulin Aspart (Novolog Flexpen) 0 units SC ACHS [facility]; Protocol Stop: 12/21/19 12:29 Last Admin: 11/21/19 21:12 Dose: 2 units Documented by: Insulin Glargine (Lantus Solostar Pen) 20 units SC [facility]; Protocol Stop: 12/21/19 08:59 Last Admin: 11/21/19 09:38 Dose: 20 units Documented by: Ketorolac Tromethamine (Toradol) 10 mg PO Q6H PRN PRN Reason: pain Stop: 11/24/19 12:52 Lorazepam (Ativan) 0.5 mg PO DAILY PRN PRN Reason: Anxiety Stop: 12/18/19 21:22 Magnesium Hydroxide (Milk Of Magnesia) 30 ml PO DAILY PRN PRN Reason: Constipation Stop: 12/18/19 20:24 Miscellaneous (Carbohydrates For Hypoglycemia) 15 - 30 gm PO UD PRN PRN Reason: Hypoglycemia Treatment Stop: 12/21/19 12:44 Miscellaneous Information (Consult Glycemic Management Pharmacy) 1 ea N/A UD PRN PRN Reason: Consult Stop: 12/18/19 22:31 Ondansetron HCl (Zofran Odt) 8 mg PO DAILY PRN PRN Reason: Nausea Stop: 12/18/19 21:22 Last Admin: 11/21/19 12:29 Dose: 8 mg Documented by: Pantoprazole Sodium (Protonix) 40 mg PO DAILY [facility] Stop: 12/19/19 08:59 Last Admin: 11/21/19 09:35 Dose: 40 mg Documented by: Propranolol HCl (Inderal La) 60 mg PO HS [facility] Stop: 12/18/19 21:59 Last Admin: 11/21/19 21:15 Dose: 60 mg Documented by: Sertraline HCl (Zoloft) 100 mg PO DAILY [facility] Stop: 12/21/19 08:59 Last Admin: 11/21/19 09:35 Dose: 100 mg Documented by: Sodium Chloride (Honomu Nasal) 1 - 2 sprays NA PRN PRN PRN Reason: Nasal Dryness/Congestion Stop: 12/18/19 20:24 Mental Health & Subst Abuse Tx Psychiatrist Name of Psychiatrist: [facility] - Dr. Adelina Rosarioist's Date of Appointment with Psychiatrist: 12/01/19 Time of Appointment with Psychiatrist: 9:00 a.m. Psychiatric Appointment Comment: [address] [place] [phone] Therapist Name of Therapist: [facility] - [facility] Levin Therapist's Date of Therapist Appointment: 11/26/19 Time of Therapist Appointment: 3:00 p.m. Therapy Appointment Comment: [address] [facility], [place] [address] Post Discharge Appointments Primary Care Physician Name Of Family Doctor: TARAH Murray Primary Care Provider Appointment Comment: [address] [place] [address] Contact Information Discharge Discharge Address: [address] [place] [address], [place] [address]
[2019-11-22] MEDS: FLUTICASONE FUROATE 200MCG 14 PUFFS/INHALER INH SCH (09:31)
[2019-11-22] MEDS: PANTOprazole 40 MG TAB PO SCH (09:31)
[2019-11-22] MEDS: SERTRALINE HCL 50 MG TABLET PO SCH (09:32)
[2019-11-22] MEDS: INSULIN ASPART 100 UNITS/ML 3 ML PEN SC SCH ×4 (09:33→22:00)
[2019-11-22] MEDS: INSULIN GLARGINE SOLOSTAR 100 UNITS/ML 3 ML PEN SC SCH (09:37)
--- NOTE | 2019-11-22 09:38 | Pharmacy Report ---
Pharmacy Glycemic Short Note 2 - Date of Service November 22, 2019 - Glycemic Short BSG Results (Last 24 hours): 11/21/19 11/21/19 11/21/19 12:13 12:32 14:40 POC Glucose 60 L* 85 97 11/21/19 11/21/19 11/22/19 16:55 20:51 08:27 POC Glucose 98 101 H 179 H OUTPATIENT ANTIDIABETIC REGIMEN: * Novolog pump; CF of 45 and CR of 8 ; goal 110 00-04 ; 0.9 units/hr 04-09 ; 0.75 units/hr 09-12 ; 0.8 units/hr 12-18 ; 0.85 units/hr 18-21 ; 0.8 units/hr 21-00 ; 0.95 units/hr * A1c = 9.0 % 10/13/19 ASSESSMENT: 11/22/19 * Patient required 34 units of insulin yesterday, of which 20 were basal insulin * Fasting BSG slightly improved to 179 mg/dL this AM, continues home basal * BSGs yesterday on lower end of range will loosen CR this AM with breakfast. Unclear why BSG had been lower at lunch yesterday, however hopefully loosening CR at breakfast will help to prevent this * Patient with gastroparesis so had originally tried to change to regular insulin yesterday, however patient refusing to use. States she thinks she was on it before once in the past and had trouble with managing BSGs 11/21/19 * Fasting BSG continues to improve at 197 mg/dL this AM, continue home basal dose * Lunch time BSG trending down to 60 mg/dl - per nurse patient given orange juice and on recheck 85 mg/dL , loosened CR slightly 11/20/19 * Fasting blood sugar 268mg/dl this AM, increase basal to home dose of 20 units daily (given late today at 1300). * Patient did have hypoglycemia yesterday prior to HS check, possibly d/t gastroparesis and analog insulin use, will consider changing Novolog to Regular insulin if this happens again. PLAN FOR INPATIENT GLYCEMIC CONTROL: * Basal insulin - continue * Lantus 20 units SQ daily * Bolus insulin - loosen * NovoLog per scale ACHS or Q6hrs while NPO * Goal Range: Low 110 mg/dL - High 140 mg/dL * Correction Factor: 45 mg/dL/unit * Nutritional / Prandial insulin per carb ratio of 1 unit per 12 grams CHO consumed - tighten back to 10 at lunch DISCHARGE PLAN: * A1C = 9% on 10/12, goal <7% * Follows [facility] Endocrinology for diabetes management, last appt 10/12/19 - would resume home novolog pump on discharge as long as no contraindications and recommend continued care Endocrinology for further management
[2019-11-22] MEDS: PROPRANOLOL HCL 60 MG LA CAP PO SCH (23:17)
[2019-11-23] MEDS: FLUTICASONE FUROATE 200MCG 14 PUFFS/INHALER INH SCH (09:01)
[2019-11-23] MEDS: INSULIN GLARGINE SOLOSTAR 100 UNITS/ML 3 ML PEN SC SCH (09:01)
[2019-11-23] MEDS: PANTOprazole 40 MG TAB PO SCH (09:02)
[2019-11-23] MEDS: SERTRALINE HCL 50 MG TABLET PO SCH (09:03)
[2019-11-23] MEDS: INSULIN ASPART 100 UNITS/ML 3 ML PEN SC SCH ×4 (09:04→22:14)
--- NOTE | 2019-11-23 09:37 | Psychiatric Progress Note ---
Date of Service November 23, 2019 Impression / Recommendations Impression 24-year-old single individual, biologically female but identifies as non-binary - preferring pronouns "they", "them", and "their," and goes by "Yola," who lives alone in [place], has a history of borderline personality disorder and is in DBT at the [facility] psych clinic, as well as depression, anxiety NOS, eating disorder, self-injurious behavior, and chronic suicidality. Referred by DBT therapist after endorsing active suicidal thoughts with a plan to overdose, and making a goodbye video. Patient endorsed multiple psychosocial stressors which have contributed to worsening mood in the past week, poor support, and feeling overwhelmed by stressors. Chronic medication noncompliance with sertraline, and had not been taking it for weeks-months. Sertraline was resumed in addition to prn Ativan and hydroxyzine. Patient is participating appropriately in group programming, but continues to endorse SI and remains unable to contract for safety outside of the inpatient hospital setting. Inpatient treatment is medically necessary due to the severity of symptoms and risk for suicide if discharged. (1) Suicidal ideation: 11/18 -continue voluntary hospitalization, suicide checks for safety. -SI is chronic, with a longstanding plan to overdose and access to multiple medications as well as a bottle of Tylenol they have specifically for that purpose. Ideally, safety plan would involve someone else holding medications during periods of instability; unfortunately, pt states they have no supports and that there is no one they would be willing to involve in a safety plan. Pt is in DBT and outpatient therapist is aware of chronic SI. 11/19 - Reports mild improvement in severity of SI, but thoughts continue with greater intensity than patient feels they could safely manage outside of the hospital setting - Recognizes complete resolution of SI is likely not an obtainable goal during this acute hospitalization, given history of chronic SI for most of their life; however, feels SI continues to be too active to be able to contract for safety if discharged 11/20 -Suicidal thoughts and urges to self injure continue, patient working on coping strategies. 11/22 - Pt able to come to staff this morning and present items they had considered using to self-harm (several long socks, toothbrush, hairbrush). Pt continues to experience intermittent active SI - States they are able to contract for safety here in the hospital, but is not so sure they would be able to avoid potentially harmful items/medications if they were discharged (2) Borderline personality disorder: 11/18 -coordinate care with outpatient clinicians at the [facility] psych clinic, and obtain records to clarify diagnoses. -Consistent boundaries. Continue DBT upon discharge. 11/19 - Demonstrating decent insight into BPD diagnosis and behavioral tendencies related to this condition. - Continue DBT groups and individual counseling (3) Depression with anxiety: 11/18 -patient reports sertraline has been beneficial in the past, but has been noncompliant with it recently. Resume 50 mg daily and titrate as tolerated. Psychoeducation provided regarding importance of medication adherence for optimal effect, and potential for need for a higher dose to adequately treat anxiety. Pt has been diagnosed with anxiety NOS in the past, with symptoms of NESHA, panic, and PTSD. -Continue home dose of lorazepam as needed. 11/19 - Titrate sertraline to 100mg starting tomorrow morning - would recommend target dose of at least 150mg, patient reports being on that dose for only a few weeks before stopping medications. Need for additional titration can be discussed with outpatient psychiatric provider - Reports mild improvement in episodes of heightened anxiety; however, baseline anxiety remains a 11/12 (10=most intense) - Discussed utilization of hydroxyzine as needed for anxiety/sleep - adjust dosi ng as needed, patient reports history of excessive sedation. Lorazepam remains available as needed - Pt openly discusses history of "dissociation" and "flashbacks", often triggered by childhood memories - treatment trajectory remains appropriate, but higher suspicion of PTSD is present 11/20 -Sertraline increased to 100 mg daily, consider further titration over the next several days. Continue lorazepam and hydroxyzine as needed. 11/21 -Reduce sertraline to 75 mg at patient's request due to concerns for nausea. Continue to offer ondansetron as needed 11/22 - Reports resolution of nausea, requesting and willing to increase sertraline back to 100mg tomorrow morning. Pt continues to have prn ondansetron available as needed - Discussed indications to request prn medication for anxiety, and will reduce hydroxyzine daytime dosing to 10mg q4h prn as patient reports one barrier to requesting the medication has been the concern it will be overly sedating - HS dosing reduced to 25mg qHS with one repeat dose available is needed - Pt continues to endorse suicidality with inability to contract for safety outside of the hospital setting. They have been processing during 1:1 sessions with counselors. - Self-harm urges are ongoing, patient able to present concerning items to staff. (4) Eating disorder: 11/18 -history of diagnosis of eating disorder NOS, recently restricting with 10 pound weight loss. Although not a focus of treatment here, will provide education regarding the importance of good nutrition for optimal functioning and health, monitor p.o. intake. -Vital signs stable, no electrolyte abnormalities 11/20 -eating well here, continue to focus on good nutrition for optimal functioning, mentally and physically. 11/21 -patient would benefit from working with a packing machine inspector; states they has seen one at [facility] but treatment was not eating disorder focused. (5) Type I diabetes mellitus: 11/18 -continue home medications, diabetic/gluten-free diet, and consult diabetic pharmacist. (6) Migraines: 11/18 -acetaminophen as needed, if ineffective may use Toradol. Patient reports a bad reaction to Imitrex. -Follow-up with neurology (appointment scheduled next month). 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 Chief Complaint "It was a long weekend." Review of Systems Notes Constitutional: denied Cardiovascular: denied Respiratory: denied Gastrointestinal: reports resolution of nausea; constipation since day of admission Neurological: denied Psychiatric: denies symptoms other than stated above Total of at least 10 systems reviewed, pertinent positives as above and in HPI. Sleep Information Total Hours of Sleep: 5.5 Meal Information Percent Meal Consumed - Breakfast: 80 Percent Meal Consumed - Lunch: 70 Percent Meal Consumed - Dinner: 50 Subjective Subjective [Documentation in this particular progress note will reflect patient's non-b inary gender status - preferred pronouns are "they", "them", and "their"]. Patient was seen & assessed and interval progress reviewed with treatment team. Staff report the patient had received numerous 1:1 counseling sessions over the weekend. Continues to struggle with distorted thoughts consistent with BPD, simultaneously reporting desire to have a support network, and then verbalizing frustrations when people overstep 'boundaries' and attempt to offer support. Pt was seen today to assess progress since admission. It was reported to this provider by staff that the patient had verbalized thoughts to use items in their room to harm themselves, and also had self-injured by scratching their upper thigh with their fingernails. Pt had handed staff numerous socks with reported thoughts to tie them together to hang themselves. At time of interaction with this provider, the patient states the thoughts are more passive and not associated at this time with feelings of hopelessness - "just there." Pt states they feeling "it was a long weekend", but did appreciate several 1:1 sessions with staff. They state they felt they have been able to dive deeper into some topics that have been discussed during their DBT groups, which has been helpful. Pt specifically mentions feeling that many of their coping skills are related to having not allowed themselves to grieve certain situations, but also that "radical acceptance" is very hard. Pt states they have difficulty "just accepting things to be the way they are, and being ok with that." Pt admits they are now tolerating medications, but does report difficulty knowing when to request as needed medication for anxiety. Pt states the idea of a "traffic light" or "[id number]" has been discussed in their DBT group when it comes to identifying escalating emotions. We discussed further evaluation of this work, with intent to determine at what stage patient may consider addition a medication to their 'toolbox' of coping skills/interventions. In order to facilitate this, daytime dosing of hydroxyzine was reduced - as patient reported concern for taking a medication that may lead to excessive fatigue. Pt does req uest to increase sertraline back to 100mg tomorrow morning, as they report nausea has resolved. Pt continues to be unable to contract for safety outside of the inpatient setting. They did request prn dosing of Colace, related to being unable to get non-formulary Linzess. Otherwise, the patient denied additional needs or concerns at this time. Physical Exam Psychiatric Orientation: alert, oriented x 3 and cooperative Apperance: appropriately dressed (casually, in t-shirt and jeans), appropriately groomed (long brown hair, appears clean - multiple facial piercings) and appeared stated age Eye Contact: good eye contact Motor Behavior: no abnormal motor movements (observed while seated at table) Speech: normal rate/rhythm/volume of speech Affect: + blunted affect Mood: + depressed mood and + anxious mood Thought Process: goal directed thought process, clear/coherent thought process and thought association intact Thought Content: no hopelessness (at time of encounter, but is present intermittently ) Suicidal Thoughts: + reports suicidal thoughts, + reports suicidal plan and + reports suicidal intent Pt presented numerous socks to staff this morning, having verbalize SI with thoughts to tie them together to hang self. Pt able to contract for safety on the unit after items were removed from room Homicidal Thoughts: denies homicidal thoughts Hallucinations: no auditory hallucinations and no visual hallucinations Cognition: recent memory grossly intact, attention grossly intact and language grossly intact Estimated Intelligence: consistent with education level Insight: + fair insight Judgement: + fair judgement Vital Signs (Past 24 Hours) Last Vital Signs Temp 36.7 C 11/23/19 06:34 Pulse 92 H 11/23/19 06:35 Resp 18 11/23/19 06:34 BP 93/62 L 11/23/19 06:35 Pulse Ox 99 11/18/19 21:31 Results & Data ([facility]) Laboratory Results Laboratory Results - last 24 hr 11/22/19 11/22/19 11/22/19 12:26 15:20 15:33 POC Glucose 219 H 68 L* 108 H 11/22/19 11/22/19 11/23/19 17:24 20:37 08:28 POC Glucose 90 248 H 210 H Current Inpatient Medications Current Inpatient Medications: Current Inpatient Medications Acetaminophen (Tylenol) 650 mg PO Q4H PRN PRN Reason: Headache or Minor Fever Stop: 12/18/19 20:24 Al Hydrox/Mg Hydrox/Simethicone (Maalox) 30 ml PO Q4H PRN PRN Reason: GI Upset Stop: 12/18/19 20:24 Albuterol (Ventolin Hfa) 2 puffs INH Q4H PRN PRN Reason: Shortness Of Breath Or Wheezing Stop: 12/18/19 21:22 Bismuth Subsalicylate (Kaopectate) 15 ml PO PRN PRN PRN Reason: Loose Stool Stop: 12/18/19 20:24 Dextrose (Dextrose 50%) 25 - 50 ml IV UD PRN; Protocol PRN Reason: Hypoglycemia Protocol Stop: 12/21/19 12:44 Fluticasone Furoate (Arnuity Ellipta 200mcg) 1 puffs INH DAILY RANDOLPH Stop: 12/19/19 08:59 Last Admin: 11/23/19 09:01 Dose: 1 puffs Documented by: Glucagon (Glucagen) 1 mg IM UD PRN; Protocol PRN Reason: Hypoglycemia Protocol Stop: 12/21/19 12:44 Glucose (Glucose 40%) 15 - 30 gm PO UD PRN; Protocol PRN Reason: Hypoglycemia Protocol Stop: 12/21/19 12:44 Glucose (Dex4 Glucose) 4 - 8 tabs PO UD PRN; Protocol PRN Reason: Hypoglycemia Protocol Stop: 12/21/19 12:44 Hydroxyzine HCl (Vistaril) 50 mg PO HSZ PRN PRN Reason: Insomnia Stop: 12/18/19 20:24 Last Admin: 11/20/19 21:03 Dose: 50 mg Documented by: Hydroxyzine HCl (Vistaril) 25 mg PO Q4H PRN PRN Reason: Anxiety Stop: 12/18/19 20:24 Last Admin: 11/22/19 22:02 Dose: 25 mg Documented by: Insulin Aspart (Novolog Flexpen) 0 units SC [facility]; Protocol Stop: 12/21/19 12:29 Last Admin: 11/23/19 09:04 Dose: 7 units Documented by: Insulin Glargine (Lantus Solostar Pen) 20 units SC [facility]; Protocol Stop: 12/21/19 08:59 Last Admin: 11/23/19 09:01 Dose: 20 units Documented by: Ketorolac Tromethamine (Toradol) 10 mg PO Q6H PRN PRN Reason: pain Stop: 11/24/19 12:52 Lorazepam (Ativan) 0.5 mg PO DAILY PRN PRN Reason: Anxiety Stop: 12/18/19 21:22 Magnesium Hydroxide (Milk Of Magnesia) 30 ml PO DAILY PRN PRN Reason: Constipation Stop: 12/18/19 20:24 Miscellaneous (Carbohydrates For Hypoglycemia) 15 - 30 gm PO UD PRN PRN Reason: Hypoglycemia Treatment Stop: 12/21/19 12:44 Miscellaneous Information (Consult Glycemic Management Pharmacy) 1 ea N/A UD PRN PRN Reason: Consult Stop: 12/18/19 22:31 Ondansetron HCl (Zofran Odt) 8 mg PO DAILY PRN PRN Reason: Nausea Stop: 12/18/19 21:22 Last Admin: 11/21/19 12:29 Dose: 8 mg Documented by: Pantoprazole Sodium (Protonix) 40 mg PO DAILY RANDOLPH Stop: 12/19/19 08:59 Last Admin: 11/23/19 09:02 Dose: 40 mg Documented by: Propranolol HCl (Inderal La) 60 mg PO HS RANDOLPH Stop: 12/18/19 21:59 Last Admin: 11/22/19 23:17 Dose: 60 mg Documented by: Sertraline HCl (Zoloft) 75 mg PO DAILY RANDOLPH Stop: 12/22/19 09:14 Last Admin: 11/23/19 09:03 Dose: 75 mg Documented by: Sodium Chloride (Clayton Nasal) 1 - 2 sprays NA PRN PRN PRN Reason: Nasal Dryness/Congestion Stop: 12/18/19 20:24 Mental Health & Subst Abuse Tx Psychiatrist Name of Psychiatrist: [facility] - Dr. Sahu Psychiatrist's Date of Appointment with Psychiatrist: 12/01/19 Time of Appointment with Psychiatrist: 9:00 a.m. Psychiatric Appointment Comment: [address] [place] [address] Therapist Name of Therapist: [facility] - Cary Levin Therapist's Date of Therapist Appointment: 11/26/19 Time of Therapist Appointment: 3:00 p.m. Therapy Appointment Comment: [address] [place] [address] Post Discharge Appointments Primary Care Physician Name Of Family Doctor: [facility] - Dr. Darian Murray Primary Care Provider Appointment Comment: [address] [place] [address] Other #1: Name of Aftercare Appointment: [facility] - DBT Group Phone Number of Aftercare Appointment: [phone] Date of Aftercare Appointment: 11/25/19 Time of Aftercare Appointment: 3:30 p.m. Aftercare Appointment Comment: [address] [facility], [place] [address] Contact Information Discharge Discharge Address: [address] [place] [address], [place] [address]
[2019-11-23] MEDS ORDERED: hydrOXYzine HCl 10 MG TAB PO PRN (12:05)
[2019-11-23] MEDS: PROPRANOLOL HCL 60 MG LA CAP PO SCH (22:02)
[2019-11-24] MEDS: SERTRALINE HCL 100 MG TABLET PO SCH (09:11)
[2019-11-24] MEDS: DOCUSATE SODIUM 100 MG CAP PO PRN ×2 (09:11→21:01)
[2019-11-24] MEDS: PANTOprazole 40 MG TAB PO SCH (09:11)
[2019-11-24] MEDS: FLUTICASONE FUROATE 200MCG 14 PUFFS/INHALER INH SCH (09:11)
[2019-11-24] MEDS: INSULIN GLARGINE SOLOSTAR 100 UNITS/ML 3 ML PEN SC SCH (09:28)
[2019-11-24] MEDS: INSULIN ASPART 100 UNITS/ML 3 ML PEN SC SCH ×4 (09:30→21:08)
--- NOTE | 2019-11-24 11:13 | Psychiatric Progress Note ---
Date of Service November 24, 2019 Impression / Recommendations Impression 24-year-old single individual, biologically female but identifies as non-binary - preferring pronouns "they", "them", and "their," and goes by "Yola," who lives alone in [place], has a history of borderline personality disorder and is in DBT at the [facility] psych clinic, as well as depression, anxiety NOS, eating disorder, self-injurious behavior, and chronic suicidality. Referred by DBT therapist after endorsing active suicidal thoughts with a plan to overdose, and making a goodbye video. Patient endorsed multiple psychosocial stressors which have contributed to worsening mood in the past week, poor support, and feeling overwhelmed by stressors. Chronic medication noncompliance with sertraline, and had not been taking it for weeks-months. Sertraline was resumed in addition to prn Ativan and hydroxyzine. Patient is participating appropriately in group programming, but continues to endorse SI and remains unable to contract for safety outside of the inpatient hospital setting. Inpatient treatment is medically necessary due to the severity of symptoms and risk for suicide if discharged. (1) Suicidal ideation: 11/18 -continue voluntary hospitalization, suicide checks for safety. -SI is chronic, with a longstanding plan to overdose and access to multiple medications as well as a bottle of Tylenol they have specifically for that purpose. Ideally, safety plan would involve someone else holding medications during periods of instability; unfortunately, pt states they have no supports and that there is no one they would be willing to involve in a safety plan. Pt is in DBT and outpatient therapist is aware of chronic SI. 11/19 - Reports mild improvement in severity of SI, but thoughts continue with greater intensity than patient feels they could safely manage outside of the hospital setting - Recognizes complete resolution of SI is likely not an obtainable goal during this acute hospitalization, given history of chronic SI for most of their life; however, feels SI continues to be too active to be able to contract for safety if discharged 11/20 -Suicidal thoughts and urges to self injure continue, patient working on coping strategies. 11/22 - Pt able to come to staff this morning and present items they had considered using to self-harm (several long socks, toothbrush, hairbrush). Pt continues to experience intermittent active SI - States they are able to contract for safety here in the hospital, but is not so sure they would be able to avoid potentially harmful items/medications if they were discharged 11/23 - Not yet able to convincingly contract for safety outside of the hospital setting; however, SI today has been passive and less overwhelming. - Continue to encourage patient to come to staff with any acute safety concerns (2) Borderline personality disorder: 11/18 -coordinate care with outpatient clinicians at the [facility] psych clinic, and obtain records to clarify diagnoses. -Consistent boundaries. Continue DBT upon discharge. 11/19 - Demonstrating decent insight into BPD diagnosis and behavioral tendencies related to this condition. - Continue DBT groups and individual counseling 11/23 - Continue to offer support and encouragement while maintaining appropriate boundaries. - Re-orient attention toward specific treatment goals (3) Depression with anxiety: 11/18 -patient reports sertraline has been beneficial in the past, but has been noncompliant with it recently. Resume 50 mg daily and titrate as tolerated. Psychoeducation provided regarding importance of medication adherence for optimal effect, and potential for need for a higher dose to adequately treat anxiety. Pt has been diagnosed with anxiety NOS in the past, with symptoms of NESHA, panic, and PTSD. -Continue home dose of lorazepam as needed. 11/19 - Titrate sertraline to 100mg starting tomorrow morning - would recommend target dose of at least 150mg, patient reports being on that dose for only a few weeks before stopping medications. Need for additional titration can be discussed with outpatient psychiatric provider - Reports mild improvement in episodes of heightened anxiety; however, baseline anxiety remains a 10 (10=most intense) - Discussed utilization of hydroxyzine as needed for anxiety/sleep - adjust dosing as needed, patient reports history of excessive sedation. Lorazepam remains available as needed - Pt openly discusses history of "dissociation" and "flashbacks", often triggered by childhood memories - treatment trajectory remains appropriate, but higher suspicion of PTSD is present 11/20 -Sertraline increased to 100 mg daily, consider further titration over the next several days. Continue lorazepam and hydroxyzine as needed. 11/21 -Reduce sertraline to 75 mg at patient's request due to concerns for nausea. Continue to offer ondansetron as needed 11/22 - Reports resolution of nausea, requesting and willing to increase sertraline back to 100mg tomorrow morning. Pt continues to have prn ondansetron available as needed - Discussed indications to request prn medication for anxiety, and will reduce hydroxyzine daytime dosing to 10mg q4h prn as patient reports one barrier to requesting the medication has been the concern it will be overly sedating - HS dosing reduced to 25mg qHS with one repeat dose available is needed - Pt continues to endorse suicidality with inability to contract for safety outside of the hospital setting. They have been processing during 1:1 sessions with counselors. - Self-harm urges are ongoing, patient able to present concerning items to staff. 11/23 - Tolerated titration of sertraline to 100mg - likely to require further titration to a dose of 150mg or even higher on an outpatient basis; however, concern for nausea with rapid titration - Continuing to find group programming and individual counseling sessions to be beneficial - Processing self-harm urges with staff, reporting suicidal ideation at this time is passive - though not yet able to contract for safety outside of the hospital setting - Pt reports she is not yet ready for discharge, but is hopeful to leave in time to meet with her individual therapist the afternoon of 11/25 (4) Eating disorder: 11/18 -history of diagnosis of eating disorder NOS, recently restricting with 10 pound weight loss. Although not a focus of treatment here, will provide education regarding the importance of good nutrition for optimal functioning and health, monitor p.o. intake. -Vital signs stable, no electrolyte abnormalities 11/20 -eating well here, continue to focus on good nutrition for optimal functioning, mentally and physically. 11/21 -patient would benefit from working with a buffer operator; states they has seen one at [facility] but treatment was not eating disorder focused. (5) Type I diabetes mellitus: 11/18 -continue home medications, diabetic/gluten-free diet, and consult diabetic pharmacist. (6) Migraines: 11/18 -acetaminophen as needed, if ineffective may use Toradol. Patient reports a bad reaction to Imitrex. -Follow-up with neurology (appointment scheduled next month). 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 Chief Complaint "Eh, I've been trying to stay out of my room. It's a bit triggering today." Review of Systems Notes Constitutional: denied Cardiovascular: denied Respiratory: denied Gastrointestinal: denied; specifically denying nausea related to medication adjustments Neurological: denied Psychiatric: denies symptoms other than stated above Total of at least 10 systems reviewed, pertinent positives as above and in HPI. Sleep Information Total Hours of Sleep: 5 Sleep Comments: pt ANTONY @0430 and thereafter. pt on q-15 minute checks Meal Information Percent Meal Consumed - Breakfast: 50 Percent Meal Consumed - Lunch: 75 Percent Meal Consumed - Dinner: 75 Subjective Subjective Patient was seen & assessed and interval progress reviewed with nursing and social work. Staff report the patient had come to staff on numerous occasions yesterday with reports of self harm (scratching upper thigh with fingernails) and ability to communication concern for other temptations to self-harm. Pt appropriately processed these feelings with staff and was encouraged to continue open communication. Pt was seen today to assess progress since admission. Pt states that she is trying to stay out of her room today, specifically her bat hroom as "it's a bit triggering today." Pt shares that she had self-harmed in the bathroom yesterday by scratching her upper thighs. Pt shares with this provider that "seeing the aftermath" if often "triggering" and brings out "my quiet competitive nature." When asked to elaborate on this thought, the patient states "I see something like the alfonso I leave and it makes me think 'I could do that better, or make it deeper' and that in itself sometimes leads me to self- harm. We spent a rather significant amount of time discussing these urges, behaviors that can replace the more harmful tendencies over time, and even the underlying protective factors. Pt states "as much as I know it's not good, if the self-harm keeps me from having suicidal thoughts I think that's better." Pt had a rather reality-based conversation about these treatment goals as well as realistic timeline of this progress. Pt states that her SI has been consistently passive since yesterday, with discussed working on maintaining this and progressing toward ability to contract for safety outside of the hospital. Pt admits she is not yet ready for discharge, but is hopeful to be released in time to attend her individual therapy appointment on 11/25. She denies other needs or concerns at this time. Physical Exam Psychiatric Orientation: alert, oriented x 3 and cooperative Apperance: appropriately dressed, appropriately groomed and appeared stated age Eye Contact: good eye contact Motor Behavior: steady gait and station and no abnormal motor movements Speech: normal rate/rhythm/volume of speech Affect: euthymic affect Mood: + anxious mood (though reports some improvement today) Thought Process: goal directed thought process, clear/coherent thought process and thought association intact Thought Content: + cognitive distortions (consistent with BPD diagnosis, but invested in challenging thoughts); no hopelessness and no worthlessness Suicidal Thoughts: denies suicidal intent; + reports suicidal thoughts (reporting passive SI today) Homicidal Thoughts: denies homicidal thoughts Hallucinations: no auditory hallucinations and no visual hallucinations Cognition: recent memory grossly intact, attention grossly intact and language grossly intact Estimated Intelligence: consistent with education level Insight: + fair insight Judgement: + fair judgement Vital Signs (Past 24 Hours) Last Vital Signs Temp 36.9 C 11/24/19 06:49 Pulse 81 11/24/19 06:50 Resp 18 11/24/19 06:49 BP 88/59 L 11/24/19 06:50 Pulse Ox 99 11/18/19 21:31 Results & Data ([facility]) Laboratory Results Laboratory Results - last 24 hr 11/23/19 11/23/19 11/23/19 12:54 15:42 21:38 POC Glucose 149 H 70 182 H 11/24/19 08:48 POC Glucose 200 H Current Inpatient Medications Current Inpatient Medications: Current Inpatient Medications Acetaminophen (Tylenol) 650 mg PO Q4H PRN PRN Reason: Headache or Minor Fever Stop: 12/18/19 20:24 Al Hydrox/Mg Hydrox/Simethicone (Maalox) 30 ml PO Q4H PRN PRN Reason: GI Upset Stop: 12/18/19 20:24 Albuterol (Ventolin Hfa) 2 puffs INH Q4H PRN PRN Reason: Shortness Of Breath Or Wheezing Stop: 12/18/19 21:22 Bismuth Subsalicylate (Kaopectate) 15 ml PO PRN PRN PRN Reason: Loose Stool Stop: 12/18/19 20:24 Dextrose (Dextrose 50%) 25 - 50 ml IV UD PRN; Protocol PRN Reason: Hypoglycemia Protocol Stop: 12/21/19 12:44 Docusate Sodium (Colace) 100 mg PO BID PRN PRN Reason: constipation Stop: 12/23/19 20:59 Last Admin: 11/24/19 09:11 Dose: 100 mg Documented by: Fluticasone Furoate (Arnuity Ellipta 200mcg) 1 puffs INH DAILY RANDOLPH Stop: 12/19/19 08:59 Last Admin: 11/24/19 09:11 Dose: 1 puffs Documented by: Glucagon (Glucagen) 1 mg IM UD PRN; Protocol PRN Reason: Hypoglycemia Protocol Stop: 12/21/19 12:44 Glucose (Glucose 40%) 15 - 30 gm PO UD PRN; Protocol PRN Reason: Hypoglycemia Protocol Stop: 12/21/19 12:44 Glucose (Dex4 Glucose) 4 - 8 tabs PO UD PRN; Protocol PRN Reason: Hypoglycemia Protocol Stop: 12/21/19 12:44 Hydroxyzine HCl (Vistaril) 10 mg PO Q4H PRN PRN Reason: Anxiety Stop: 12/18/19 20:24 Hydroxyzine HCl (Vistaril) 25 mg PO HSZ PRN PRN Reason: Insomnia Stop: 12/18/19 20:24 Last Admin: 11/23/19 22:02 Dose: 25 mg Documented by: Insulin Aspart (Novolog Flexpen) 0 units [facility]; Protocol Stop: 12/21/19 12:29 Last Admin: 11/24/19 09:30 Dose: 6 units Documented by: Insulin Glargine (Lantus Solostar Pen) 21 units SC [facility]; Protocol Stop: 12/24/19 08:59 Last Admin: 11/24/19 09:28 Dose: 21 units Documented by: Ketorolac Tromethamine (Toradol) 10 mg PO Q6H PRN PRN Reason: pain Stop: 11/24/19 12:52 Lorazepam (Ativan) 0.5 mg PO DAILY PRN PRN Reason: Anxiety Stop: 12/18/19 21:22 Magnesium Hydroxide (Milk Of Magnesia) 30 ml PO DAILY PRN PRN Reason: Constipation Stop: 12/18/19 20:24 Miscellaneous (Carbohydrates For Hypoglycemia) 15 - 30 gm PO UD PRN PRN Reason: Hypoglycemia Treatment Stop: 12/21/19 12:44 Miscellaneous Information (Consult Glycemic Management Pharmacy) 1 ea N/A UD PRN PRN Reason: Consult Stop: 12/18/19 22:31 Ondansetron HCl (Zofran Odt) 8 mg PO DAILY PRN PRN Reason: Nausea Stop: 12/18/19 21:22 Last Admin: 11/21/19 12:29 Dose: 8 mg Documented by: Pantoprazole Sodium (Protonix) 40 mg PO DAILY RANDOLPH Stop: 12/19/19 08:59 Last Admin: 11/24/19 09:11 Dose: 40 mg Documented by: Propranolol HCl (Inderal La) 60 mg PO HS RANDOLPH Stop: 12/18/19 21:59 Last Admin: 11/23/19 22:02 Dose: 60 mg Documented by: Sertraline HCl (Zoloft) 100 mg PO DAILY RANDOLPH Stop: 12/24/19 08:59 Last Admin: 11/24/19 09:11 Dose: 100 mg Documented by: Sodium Chloride ([place] Nasal) 1 - 2 sprays NA PRN PRN PRN Reason: Nasal Dryness/Congestion Stop: 12/18/19 20:24 Mental Health & Subst Abuse Tx Psychiatrist Name of Psychiatrist: [facility] - Dr. Sahu Psychiatrist's Date of Appointment with Psychiatrist: 12/01/19 Time of Appointment with Psychiatrist: 9:00 a.m. Psychiatric Appointment Comment: [address] [place] [address] Therapist Name of Therapist: [facility] - Cary Levin Therapist's Date of Therapist Appointment: 11/26/19 Time of Therapist Appointment: 3:00 p.m. Therapy Appointment Comment: [address] [place] [address] Post Discharge Appointments Primary Care Phys[facility] Primary Care Provider Appointment Comment: [address], [place] [address] Other #1: Name of Aftercare Appointment: [facility] - DBT Group Phone Number of Aftercare Appointment: [phone] Date of Aftercare Appointment: 11/25/19 Time of Aftercare Appointment: 3:30 p.m. Aftercare Appointment Comment: [address] [facility] [place] [address] Contact Information Discharge Discharge Address: [address] [facility], [place] [address]
--- NOTE | 2019-11-24 13:54 | Pharmacy Report ---
Glycemic Control Progress Note - Date of Service November 24, 2019 - Scope Glycemic Pharmacist consulted for glycemic control to write orders per [facility] inpatient glycemic control protocol. - Objective Accuchecks BSG(last 24 hours):: 11/23/19 11/23/19 11/24/19 15:42 21:38 08:48 POC Glucose 70 182 H 200 H 11/24/19 11/24/19 12:22 12:25 POC Glucose 225 H 218 H - Recent Pertinent Medications The patient is currently receiving: * Basal insulin: Lantus 20 units every 24 hours * Correctional Insulin: Novolog Correction per scale ACHS Goal Range: Low 110 mg/dL - High 140 mg/dL Correction Factor: 45 mg/dL/unit * Prandial insulin: Per carb ratio of 1 unit per 11 grams CHO consumed - Outpatient Anti-Diabetic Meds Novolog pump - Assessment & Plan ASSESSMENT: * See progress note from 11/19/2019 for more background info, in short: * Pt receiving SQ basal bolus insulin regimen for hyperglycemia secondary to baseline DM (outpatient regimen on hold). * Patient is currently receiving an average of 37 units of insulin per day * 20 units of basal insulin * 17 units of prandial/correctional insulin * BSGs ranging 70 - 210 mg/dl over the past 24hrs * Changes needed to insulin regimen: * AM Fasting BSG = 200 mg/dl. This is above goal range for patient based on inpatient targets and co-morbidities and has been trending steady for the past couple of days. The patient's pump basal rate is 19 units/day. She is currently receiving 20 units/day. Will increase by 1 more unit as it appears patient is basal deficient. When off of pump, patients can require more basal insulin. * Post-prandial BSGs have been fluctuating. Will increase goal range to 80- 160 mg/dL to provide wider range for where patient does not receive correction factor. It appears that she does need carbohydrates covered but correction factor may become too aggressive. Tighten carbohydrate ratio slightly. * Total daily dose = ~35-40 units. * Additional notes / comments: continue to hold off on pump for right now PLAN FOR INPATIENT GLYCEMIC CONTROL: * INCREASING Lantus to 21 units SQ qAM * Continuing correction factor of 45 mg/dl/unit * TIGHTENING carb ratio to 1 unit per 10 grams CHO consumed * CHANGING goal range to Low 80 mg/dL - High 160 mg/dL RECOMMENDATIONS FOR DISCHARGE: * Recommend patient continue outpatient regimen at this time. HbA1C is not at goal but would want to utilize best strategy for patient and continue to work on improved glucose control as an outpatient. Thank you.
[2019-11-24] MEDS: PROPRANOLOL HCL 60 MG LA CAP PO SCH (20:58)
--- NOTE | 2019-11-25 09:24 | Pharmacy Report ---
Pharmacy Glycemic Short Note 2 - Date of Service November 25, 2019 - Glycemic Short BSG Results (Last 24 hours): 11/24/19 11/24/19 11/24/19 12:22 12:25 16:57 POC Glucose 225 H 218 H 113 H 11/24/19 11/24/19 11/25/19 20:24 20:47 08:33 POC Glucose 67 L* 122 H 189 H OUTPATIENT ANTIDIABETIC REGIMEN: * Novolog pump; CF of 45 and CR of 8 ; goal 110 00-04 ; 0.9 units/hr 04-09 ; 0.75 units/hr 09-12 ; 0.8 units/hr 12-18 ; 0.85 units/hr 18-21 ; 0.8 units/hr 21-00 ; 0.95 units/hr * A1c = 9.0 % 10/13/19 ASSESSMENT: 11/24 * Patient received total of 38 units of insulin yesterday, of which 21 were basal insulin * Fasting BSG 189 mg/dL - continue same basal insulin * BSGs decreasing yesterday throughout the day from [id number] at HS. Given orange juice for BSG <70 mg/dL per nurse notes * Plan to provider looser CR at lunch to hopefully maintain higher BSGs second half of day PLAN FOR INPATIENT GLYCEMIC CONTROL: * Basal insulin - continue * Lantus 21 units SQ daily * Bolus insulin - loosen * NovoLog per scale ACHS or Q6hrs while NPO * Goal Range: Low 110 mg/dL - High 140 mg/dL * Correction Factor: 45 mg/dL/unit * Nutritional / Prandial insulin per carb ratio of 1 unit per 11 grams CHO consumed - loosen at lunch to CR of 15 DISCHARGE PLAN: * A1C = 9% on 10/12, goal <7% * Follows [facility] Endocrinology for diabetes management, last appt 10/12/19 - would resume home novolog pump on discharge as long as no contraindications and recommend continued care Endocrinology for further management
[2019-11-25] MEDS: FLUTICASONE FUROATE 200MCG 14 PUFFS/INHALER INH SCH (09:26)
[2019-11-25] MEDS: SERTRALINE HCL 100 MG TABLET PO SCH (09:27)
[2019-11-25] MEDS: PANTOprazole 40 MG TAB PO SCH (09:27)
[2019-11-25] MEDS: INSULIN GLARGINE SOLOSTAR 100 UNITS/ML 3 ML PEN SC SCH (09:28)
[2019-11-25] MEDS: INSULIN ASPART 100 UNITS/ML 3 ML PEN SC SCH ×4 (09:29→20:43)
[2019-11-25] MEDS: DOCUSATE SODIUM 100 MG CAP PO PRN ×2 (10:32→21:11)
--- NOTE | 2019-11-25 10:35 | Psychiatric Progress Note ---
Date of Service November 25, 2019 Impression / Recommendations Impression 24-year-old single individual, biologically female but identifies as non-binary - preferring pronouns "they", "them", and "their," and goes by "Yola," who lives alone in [place], has a history of borderline personality disorder and is in DBT at the [facility] psych clinic, as well as depression, anxiety NOS, eating disorder, self-injurious behavior, and chronic suicidality. Referred by DBT therapist after endorsing active suicidal thoughts with a plan to overdose, and making a goodbye video. Patient endorsed multiple psychosocial stressors which have contributed to worsening mood in the past week, poor support, and feeling overwhelmed by stressors. Chronic medication noncompliance with sertraline, and had not been taking it for weeks-months. Sertraline was resumed in addition to prn Ativan and hydroxyzine. Patient is participating appropriately in group programming, but continues to endorse SI and remains unable to contract for safety outside of the inpatient hospital setting. Inpatient treatment is medically necessary due to the severity of symptoms and risk for suicide if discharged. (1) Suicidal ideation: 11/18 -continue voluntary hospitalization, suicide checks for safety. -SI is chronic, with a longstanding plan to overdose and access to multiple medications as well as a bottle of Tylenol they have specifically for that purpose. Ideally, safety plan would involve someone else holding medications during periods of instability; unfortunately, pt states they have no supports and that there is no one they would be willing to involve in a safety plan. Pt is in DBT and outpatient therapist is aware of chronic SI. 11/19 - Reports mild improvement in severity of SI, but thoughts continue with greater intensity than patient feels they could safely manage outside of the hospital setting - Recognizes complete resolution of SI is likely not an obtainable goal during this acute hospitalization, given history of chronic SI for most of their life; however, feels SI continues to be too active to be able to contract for safety if discharged 11/20 -Suicidal thoughts and urges to self injure continue, patient working on coping strategies. 11/22 - Pt able to come to staff this morning and present items they had considered using to self-harm (several long socks, toothbrush, hairbrush). Pt continues to experience intermittent active SI - States they are able to contract for safety here in the hospital, but is not so sure they would be able to avoid potentially harmful items/medications if they were discharged 11/23 - Not yet able to convincingly contract for safety outside of the hospital setting; however, SI today has been passive and less overwhelming. - Continue to encourage patient to come to staff with any acute safety concerns (2) Borderline personality disorder: 11/18 -coordinate care with outpatient clinicians at the [facility] psych clinic, and obtain records to clarify diagnoses. -Consistent boundaries. Continue DBT upon discharge. 11/19 - Demonstrating decent insight into BPD diagnosis and behavioral tendencies related to this condition. - Continue DBT groups and individual counseling 11/23 - Continue to offer support and encouragement while maintaining appropriate boundaries. - Re-orient attention toward specific treatment goals (3) Depression with anxiety: 11/18 -patient reports sertraline has been beneficial in the past, but has been noncompliant with it recently. Resume 50 mg daily and titrate as tolerated. Psychoeducation provided regarding importance of medication adherence for optimal effect, and potential for need for a higher dose to adequately treat anxiety. Pt has been diagnosed with anxiety NOS in the past, with symptoms of NESHA, panic, and PTSD. -Continue home dose of lorazepam as needed. 11/19 - Titrate sertraline to 100mg starting tomorrow morning - would recommend target dose of at least 150mg, patient reports being on that dose for only a few weeks before stopping medications. Need for additional titration can be discussed with outpatient psychiatric provider - Reports mild improvement in episodes of heightened anxiety; however, baseline anxiety remains a 10 (10=most intense) - Discussed utilization of hydroxyzine as needed for anxiety/sleep - adjust dosing as needed, patient reports history of excessive sedation. Lorazepam remains available as needed - Pt openly discusses history of "dissociation" and "flashbacks", often triggered by childhood memories - treatment trajectory remains appropriate, but higher suspicion of PTSD is present 11/20 -Sertraline increased to 100 mg daily, consider further titration over the next several days. Continue lorazepam and hydroxyzine as needed. 11/21 -Reduce sertraline to 75 mg at patient's request due to concerns for nausea. Continue to offer ondansetron as needed 11/22 - Reports resolution of nausea, requesting and willing to increase sertraline back to 100mg tomorrow morning. Pt continues to have prn ondansetron available as needed - Discussed indications to request prn medication for anxiety, and will reduce hydroxyzine daytime dosing to 10mg q4h prn as patient reports one barrier to requesting the medication has been the concern it will be overly sedating - HS dosing reduced to 25mg qHS with one repeat dose available is needed - Pt continues to endorse suicidality with inability to contract for safety outside of the hospital setting. They have been processing during 1:1 sessions with counselors. - Self-harm urges are ongoing, patient able to present concerning items to staff. 11/23 - Tolerated titration of sertraline to 100mg - likely to require further titration to a dose of 150mg or even higher on an outpatient basis; however, concern for nausea with rapid titration - Continuing to find group programming and individual counseling sessions to be beneficial - Processing self-harm urges with staff, reporting suicidal ideation at this time is passive - though not yet able to contract for safety outside of the hospital setting - Pt reports she is not yet ready for discharge, but is hopeful to leave in time to meet with her individual therapist the afternoon of 11/25 11/24 - Continue sertraline 100mg - Continue to encourage group participate and 1:1 counseling to further develop confidence in using healthy and effective coping strategies and solidify a safety plan - Discussed plan for discharge tomorrow, and can then get to outpatient individual therapy appointment (4) Eating disorder: 11/18 -history of diagnosis of eating disorder NOS, recently restricting with 10 pound weight loss. Although not a focus of treatment here, will provide education regarding the importance of good nutrition for optimal functioning and health, monitor p.o. intake. -Vital signs stable, no electrolyte abnormalities 11/20 -eating well here, continue to focus on good nutrition for optimal functioning, mentally and physically. 11/21 -patient would benefit from working with a chemist internship; states they has seen one at [facility] but treatment was not eating disorder focused. (5) Type I diabetes mellitus: 11/18 -continue home medications, diabetic/gluten-free diet, and consult diabetic pharmacist. (6) Migraines: 11/18 -acetaminophen as needed, if ineffective may use Toradol. Patient reports a bad reaction to Imitrex. -Follow-up with neurology (appointment scheduled next month). 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 Chief Complaint "Can I ask a stupid question? I saw security up here, and wanted to make sure it had nothing to do with me." Review of Systems Notes Constitutional: denied Cardiovascular: denied Respiratory: denied Gastrointestinal: denied Neurological: denied Psychiatric: denies symptoms other than stated above Total of at least 10 systems reviewed, pertinent positives as above and in HPI. Sleep Information Total Hours of Sleep: 7.5 Sleep Comments: pt ANTONY @0430 and thereafter. pt on q-15 minute checks Meal Information Percent Meal Consumed - Breakfast: 50 Percent Meal Consumed - Lunch: 75 Percent Meal Consumed - Dinner: 90 Subjective Subjective [Documentation in this particular progress note will reflect patient's non- binary gender status - preferred pronouns are "they", "them", and "their"]. Patient was seen & assessed and interval progress reviewed with treatment team. Staff report the patient has continued to participate in group programming. Pt rated their mood a 5/10 and "tired." Pt was seen today to assess progress since admission. Pt initially inquires about a "stupid question", questioning "I saw security up here, and wanted to make sure it had nothing to do with me." Pt reports running into a guard rail in June and was concerned that the police were here to meet with them. Pt was reassured that security's presence had nothing to do with them. Pt did admit that anxiety was significantly higher today compared to yesterday, and that they had difficulty sleeping related to anxiety. We discussed potential for discharge today, and patient admitted they had no intention of attending DBT group therapy this afternoon, and would prefer to get settled at home. Pt paused for a moment, and then admitted that they were having very strong urges to self harm and "discharge would be an excuse to leave here so I could do that." Pt was reminded that while this is not the direct focus of our treatment, that there may be things they can continue to gain from programming that can encourage healthy and effective coping strategies on discharge. We reviewed the additional benefit of being able to meet with their individual therapist on the day of discharge to process this with their usual therapist. Processed with patient whether or not there would be benefit in staying another day. Ultimately, patient did decide that staying an additional day would help to solidify safety planning and build confidence with coping skills. Pt was able to process ways staff could assist with this today and offered helpful tips. Pt denied other needs or concerns at this time. Physical Exam Psychiatric Orientation: alert, oriented x 3 and cooperative (and pleasant) Apperance: appropriately dressed (casually, in jeans and a flannel shirt), appropriately groomed (long hair, corrective lenses, and multiple facial piercings) and appeared stated age Eye Contact: good eye contact Motor Behavior: steady gait and station and no abnormal motor movements Speech: normal rate/rhythm/volume of speech Affect: + anxious affect and mood congruent with affect Mood: + anxious mood ("A lot more anxiety today, yesterday was a better day") Thought Process: goal directed thought process and clear/coherent thought process Thought Content: + preoccupation (reporting increased focus on anxiety, and increased self-harm urges) and reality based without delusions; no hopelessness Suicidal Thoughts: denies suicidal thoughts (denies active SI - admits to intermittent passive SI) and denies suicidal intent Homicidal Thoughts: denies homicidal thoughts Hallucinations: no auditory hallucinations and no visual hallucinations Cognition: recent memory grossly intact, attention grossly intact and language grossly intact Estimated Intelligence: consistent with education level Insight: + fair insight Judgement: + fair judgement Vital Signs (Past 24 Hours) Last Vital Signs Temp 36.6 C 11/25/19 06:32 Pulse 79 11/25/19 06:33 Resp 18 11/25/19 06:32 BP 76/58 L 11/25/19 06:33 Pulse Ox 99 11/18/19 21:31 Results & Data (U) Laboratory Results Laboratory Results - last 24 hr 11/24/19 11/24/19 11/24/19 12:22 12:25 16:57 POC Glucose 225 H 218 H 113 H 11/24/19 11/24/19 11/25/19 20:24 20:47 08:33 POC Glucose 67 L* 122 H 189 H Current Inpatient Medications Current Inpatient Medications: Current Inpatient Medications Acetaminophen (Tylenol) 650 mg PO Q4H PRN PRN Reason: Headache or Minor Fever Stop: 12/18/19 20:24 Al Hydrox/Mg Hydrox/Simethicone (Maalox) 30 ml PO Q4H PRN PRN Reason: GI Upset Stop: 12/18/19 20:24 Albuterol (Ventolin Hfa) 2 puffs INH Q4H PRN PRN Reason: Shortness Of Breath Or Wheezing Stop: 12/18/19 21:22 Bismuth Subsalicylate (Kaopectate) 15 ml PO PRN PRN PRN Reason: Loose Stool Stop: 12/18/19 20:24 Dextrose (Dextrose 50%) 25 - 50 ml IV UD PRN; Protocol PRN Reason: Hypoglycemia Protocol Stop: 12/21/19 12:44 Docusate Sodium (Colace) 100 mg PO BID PRN PRN Reason: constipation Stop: 12/23/19 20:59 Last Admin: 11/24/19 21:01 Dose: 100 mg Documented by: Fluticasone Furoate (Arnuity Ellipta 200mcg) 1 puffs INH DAILY RANDOLPH Stop: 12/19/19 08:59 Last Admin: 11/25/19 09:26 Dose: 1 puffs Documented by: Glucagon (Glucagen) 1 mg IM UD PRN; Protocol PRN Reason: Hypoglycemia Protocol Stop: 12/21/19 12:44 Glucose (Glucose 40%) 15 - 30 gm PO UD PRN; Protocol PRN Reason: Hypoglycemia Protocol Stop: 12/21/19 12:44 Glucose (Dex4 Glucose) 4 - 8 tabs PO UD PRN; Protocol PRN Reason: Hypoglycemia Protocol Stop: 12/21/19 12:44 Hydroxyzine HCl (Vistaril) 10 mg PO Q4H PRN PRN Reason: Anxiety Stop: 12/18/19 20:24 Hydroxyzine HCl (Vistaril) 25 mg PO HSZ PRN PRN Reason: Insomnia Stop: 12/18/19 20:24 Last Admin: 11/24/19 21:01 Dose: 25 mg Documented by: Insulin Aspart (Novolog Flexpen) 0 units SC ACHS [facility]; Protocol Stop: 12/21/19 12:29 Last Admin: 11/25/19 09:29 Dose: 8 units Documented by: Insulin Glargine (Lantus Solostar Pen) 21 units SC QAM [facility]; Protocol Stop: 12/24/19 08:59 Last Admin: 11/25/19 09:28 Dose: 21 units Documented by: Lorazepam (Ativan) 0.5 mg PO DAILY PRN PRN Reason: Anxiety Stop: 12/18/19 21:22 Magnesium Hydroxide (Milk Of Magnesia) 30 ml PO DAILY PRN PRN Reason: Constipation Stop: 12/18/19 20:24 Miscellaneous (Carbohydrates For Hypoglycemia) 15 - 30 gm PO UD PRN PRN Reason: Hypoglycemia Treatment Stop: 12/21/19 12:44 Miscellaneous Information (Consult Glycemic Management Pharmacy) 1 ea N/A UD PRN PRN Reason: Consult Stop: 12/18/19 22:31 Ondansetron HCl (Zofran Odt) 8 mg PO DAILY PRN PRN Reason: Nausea Stop: 12/18/19 21:22 Last Admin: 11/21/19 12:29 Dose: 8 mg Documented by: Pantoprazole Sodium (Protonix) 40 mg PO DAILY [facility] Stop: 12/19/19 08:59 Last Admin: 11/25/19 09:27 Dose: 40 mg Documented by: Propranolol HCl (Inderal La) 60 mg PO [facility] Stop: 12/18/19 21:59 Last Admin: 11/24/19 20:58 Dose: 60 mg Documented by: Sertraline HCl (Zoloft) 100 mg PO DAILY [facility] Stop: 12/24/19 08:59 Last Admin: 11/25/19 09:27 Dose: 100 mg Documented by: Sodium Chloride (Kerr Nasal) 1 - 2 sprays NA PRN PRN PRN Reason: Nasal Dryness/Congestion Stop: 12/18/19 20:24 Mental Health & Subst Abuse Tx Psychiatrist Name of Psychiatrist: [facility] - Dr. Sahu Psychiatrist's Date of Appointment with Psychiatrist: 12/01/19 Time of Appointment with Psychiatrist: 9:00 a.m. Psychiatric Appointment Comment: [address] [place] [address] Therapist Name of Therapist: [facility] - Cary Levin Therapist's Date of Therapist Appointment: 11/26/19 Time of Therapist Appointment: 3:00 p.m. Therapy Appointment Comment: [address] [place] [address] Post Discharge Appointments Primary Care Physician Name Of Family Doctor: TARAH Murray Primary Care Provider Appointment Comment: [address] [place] [address] Other #1: Name of Aftercare Appointment: [facility] - DBT Group Phone Number of Aftercare Appointment: [phone] Date of Aftercare Appointment: 12/02/19 Time of Aftercare Appointment: 3:30 p.m. Aftercare Appointment Comment: [address] [place] [address] Contact Information Discharge Discharge Address: [address] [place] [address], [place] [address]
[2019-11-25] MEDS: PROPRANOLOL HCL 60 MG LA CAP PO SCH (20:47)
[2019-11-26] MEDS ORDERED: INSULIN ASPART 100 UNITS/ML 3 ML PEN SC SCH ×2 (08:00→12:00)
--- NOTE | 2019-11-26 08:39 | Discharge Summary ---
Date of Service November 26, 2019 History of Present Illness Patient presented to the ER on referral from her therapist at the [facility] after she endorsed suicidal thoughts with a plan to overdose on prescription medications, and stated she had access to a lot of medications that she could use. In the ER, she appeared depressed and anxious, said she had been noncompliant with her medications, and endorsed multiple stressors including financial, fears about her future, pain, job, and mental health. She reported frequent crying spells, helplessness, hopelessness, poor motivation, anhedonia, erratic sleeping patterns, decreased appetite, and social isolation. She reported daily anxiety with shortness of breath, impaired sleep, irritability, and palpitations. She reported a history of superficial cutting since age 12, last episode 2 weeks ago. Admission labs were unremarkable with the exception of elevated glucose and contaminated UA, and she signed in voluntarily. On my assessment, she states that mood has been poor for some time, describing it as "rough for a while, since September,," and that it worsened acutely in the past week in the context of multiple stressors, including work stress and financial problems, feeling overwhelmed and unable to cope. She says mood worsened in the spring in the context of "losing a therapist I'd worked with for 4 years," getting a new job, and then COVID pandemic. 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 She is also had recent financial difficulties as she received multiple bills that she cannot pay. She felt she was dealing with the first 1 by calling and making a plan to address it, but then received a second unexpected bill and felt overwhelmed and hopeless. "I was trying to take responsibility for it, and it was like a big fuck you. Can't take a step forward without taking 10 steps back." She states she always has suicidal thoughts for as long as she can remember, "they just change from passive to active." She reports they have been "active" over the past week, and that yesterday she made a "goodbye video" on her phone, with a plan to leave her phone unlocked next to her is that whoever found her would find the video. Reports a longstanding plan to her life by overdose, stating she has lots of medications she could take, and has also had a bottle of Tylenol for the past year which she kept with intent to use it to end her life. She decided not to go through with the plan yesterday and instead to tell her therapist how she was feeling, and called to tell her she was not coming to DBT group as it felt overwhelming, ultimately agreeing to come to the ER after their discussion. She reports severe and constant anxiety, with restl essness, feeling on edge, unable to relax, more frequent migraines, for which she takes Ativan as needed. She also reports a 10 pound weight loss in the past few months which she attributes to restricting her p.o. intake. She notes a long standing desire to lose weight, stating her goal weight is 90 pounds, which she recognizes is unhealthy. He says she would actually like to get down to 68 pounds, as that is how much she weighed when she was first diagnosed with diabetes and "that she had hit the fan" in her life, and thinks that if she could "get back to that weight, everything that happened in the meantime would be erased." She admits this is a "fantasy thought," but states there is also part of her that is constantly telling herself to "try harder" to lose weight. Denies binging and purging. Reports self injury by cutting, alleviated by drawing. Denies symptoms consistent with victor manuel and psychosis; note she was previously diagnosed with bipolar disorder, but thinks that BPD is a better fit. Reports poor adherence with sertraline, last filled a 30-day supply 4 months ago and has taken it sporadically. Says she has taken it consistently in the past and that it helped with mood and anxiety, but after 6 months or so seemed to lose effect, so then she got frustrated and decided to stop taking it. Reports poor treatment adherence due to feeling overwhelmed with her medical problems and "everything I need to do for my health," with them stopped all of her medications except for her insulin. She would like to resume sertraline, and took 50 mg this morning. She reports no friends or supports, and no contact with family. Physical Exam Psychiatric Orientation: alert, oriented x 3 and cooperative Apperance: appropriately dressed, appropriately groomed and appeared stated age Eye Contact: good eye contact Motor Behavior: steady gait and station and no abnormal motor movements Speech: normal rate/rhythm/volume of speech Affect: euthymic affect and mood congruent with affect mildly anxious "okay." Thought Process: goal directed thought process Thought Content: reality based without delusions Suicidal Thoughts: denies suicidal thoughts although reports chronic, intermittent, passive SI (thoughts that it would be better if she weren't alive), with no plan or intent to harm herself. Also reports chronic thoughts to self injure by scratching or cutting when distressed. Homicidal Thoughts: denies homicidal thoughts Hallucinations: no auditory hallucinations and no visual hallucinations Cognition: recent memory grossly intact, attention grossly intact and language grossly intact Estimated Intelligence: consistent with education level Insight: + fair insight Judgement: + fair judgement Vital Signs (Past 24 Hours) Last Vital Signs Temp 37 C 11/26/19 06:38 Pulse 81 11/26/19 06:40 Resp 18 11/26/19 06:38 BP 91/62 L 11/26/19 06:40 Pulse Ox 99 11/18/19 21:31 Principal Diagnosis Borderline personality disorder Depression not otherwise specified Anxiety not otherwise specified Unspecified eating disorder (restriction) Psychiatric Data Patient was hospitalized for 8 days. Sertraline was resumed and re-titrated to 100 mg daily; mild nausea occurred but resolved within several days. Hydroxyzine 25 mg at bedtime was utilized effectively for sleep. The patient participated in groups and therapy, had frequent one-to-one sessions with staff to process stressors and work on coping skills, and was cooperative and engaged in treatment. Patient reported 1 episode of self injury by superficially scratching her thighs with her fingernails when feeling anxious, and approach staff to hand in belongings that could be used in self-harm or for strangulation when having suicidal thoughts/urges to self injure (long socks, hairbrush). At one time the patient endorsed thoughts to drink shampoo, so handed and hair care products to staff. Good p.o. intake was observed, patient reported eating more than usual while in the hospital. Yola's aunt and landlord both called, but the patient declined to involve either of them in treatment, and did not want to sign releases for staff to get collateral information. She did sign releases for outpatient clinicians, who were advised of her admission. Patient spoke to staff about her desire to have a mother and failed attempts to ask other people to fulfill this role, most recently a teacher at [employer] who initially agreed, then said she could be a support, but not in a mother role. Patient recognized struggles with rejection sensitivity, with leads to difficulty asking for support. She also processed stressors involving her job, lack of friends or community supports, and questioning identity and sexuality. Patient expressed guilt and confusion, related to being raised as a [employer]. Patient was able to identify and utilize healthy coping skills in place of self injury. Although a family meeting was recommended, patient declined. Day of Discharge Assessment Staff reports the patient rated mood 5/10 yesterday, stating that is baseline mood. Although SI and urges to self injure have been intermittent throughout hospitalization, yesterday patient denied any suicidal thoughts, and reported some urges to cut, but denied acting on self-injurious thoughts for the past 2 days. Patient attended all groups yesterday with minimal prompting from staff, and spent free time walking the halls and talking to peers. On my assessment, patient states mood has improved from admission, suicidal thoughts have decreased to baseline level, as have urges to self-harm or cut. Patient is able to review healthy coping skills and feels ready to be discharged and return to outpatient treatment. Side effects to sertraline have resolved, and patient would like to remain at the 100 mg dose for now, with the understanding that it may need to be increased in the future. Hydroxyzine 25 mg at bedtime has been helpful for insomnia, and patient would like a prescription at discharge. Patient is able to review discharge safety plan, has a therapy appointment today, and psychiatric appointment in 5 days. Patient denies any acute safety concerns with discharge. Transition of Care Transition Of Care Record: was reviewed with the patient Advance Directives Advance Directives Information Provided: No Advance Directives: No Mental Health Advance Directive: No Advance Directives on File: No Living Will: No Power of Watch Repairer Apprentice: No Advance Directives Reason:: Declines as Mental Health Visit. Risk Factors Assessment Risk factors mitigated by admission to the inpatient unit, use of medications to target mood and anxiety symptoms, involvement in groups and therapy, working on healthy coping skills and a discharge safety plan, processing stressors, psychoeducation about diagnoses and recommended treatment, coordination with outpatient providers, and recommendations for a family meeting, which the patient declined. Mood and anxiety have improved, patient is complying with medications and stating willingness to follow-up with outpatient treatment, is eating and sleeping well, and performing ADLs independently. Suicidal thoughts and urges to self injure have returned to baseline levels, and the patient is able to identify healthy coping skills to use when these thoughts occur. The patient is requesting discharge, and is no longer at acute risk of harm to self, so can be managed as an outpatient at this time. There are not significant risk factors for harm to others. Male: No : Yes Do You Have Access To A Gun?: No Health Problems: Yes Mental Health Diagnoses: Yes Substance Use Disorders: No Previous Attempt: Yes Family History of Suicide: No Previous Psychiatric Hospitalization: Yes Hopelessness: Yes Smoker: No Protective Factors Assessment Worship Beliefs: No : No Responsible for Young Children: No Employed: Yes ([employer]) Stable Relationships: No Supportive Family: No Good Rapport with Provider: Yes Tobacco Cessation at Discharge Tobacco Cessation Medication Prescribed at Discharge: Not Applicable/Non-Smoker Total Time Total Time Spent: Greater Than 30 Minutes Total Time Includes: Examination of the patient, Discharge Planning and Medication Reconciliation Discharge Data Lab Results 11/18/19 11/18/19 11/18/19 17:30 17:30 18:01 WBC 7.05 RBC 4.70 Hgb 14.6 Hct 41.6 MCV 88.5 MCH 31.1 MCHC 35.1 RDW Std Deviation 38.2 RDW Coeff of Keanu 11.9 Plt Count 286 MPV 11.5 H Immature Gran % (Auto) 0.1 Neut % (Auto) 55.0 Lymph % (Auto) 32.9 Hand % (Auto) 10.2 Eos % (Auto) 1.4 Baso % (Auto) 0.4 Neut # (Auto) 3.87 Lymph # (Auto) 2.32 Hand # (Auto) 0.72 H Eos # (Auto) 0.10 Baso # (Auto) 0.03 Immature Gran # (Auto) 0.01 Sodium Potassium Chloride Carbon Dioxide Anion Gap BUN Creatinine Est Cr Clr Drug Dosing Est GFR ( Amer) Est GFR (Non-Af Amer) BUN/Creatinine Ratio Glucose POC Glucose Calcium Total Bilirubin AST ALT Alkaline Phosphatase Total Protein Albumin Globulin Albumin/Globulin Ratio TSH Urine Color Yellow Urine Appearance Clear Urine pH 8.0 H Ur Specific [place] 1.010 Urine Protein Negative Urine Glucose (UA) Trace H Urine Ketones Negative Urine Blood Negative Urine Nitrite Negative Urine Bilirubin Negative Urine Urobilinogen Negative Ur Leukocyte Esterase 3+ H Urine WBC (Auto) 5-10 H Urine RBC (Auto) 5-10 H U Hyaline Cast (Auto) 1-5 U Epithel Cells (Auto) >30 H Urine Bacteria (Auto) 2+ H Salicylates Urine Opiates Screen Neg Ur Methadone, Qual Neg Acetaminophen Urine Barbiturates Neg Ur Phencyclidine (PCP) Neg U Amphetamin/Meth Scrn Neg MDMA (Ecstasy) Screen Neg U Benzodiazepines Scrn Neg Ur Cocaine Metabolite Neg U Marijuana (THC) Screen Neg Ethyl Alcohol mg/dL 11/18/19 11/18/19 11/18/19 18:01 18:01 18:01 WBC RBC Hgb Hct MCV MCH MCHC RDW Std Deviation RDW Coeff of Keanu Plt Count MPV Immature Gran % (Auto) Neut % (Auto) Lymph % (Auto) Hand % (Auto) Eos % (Auto) Baso % (Auto) Neut # (Auto) Lymph # (Auto) Hand # (Auto) Eos # (Auto) Baso # (Auto) Immature Gran # (Auto) Sodium 142 Potassium 4.3 Chloride 108 H Carbon Dioxide 29 Anion Gap 5.0 BUN 5 L Creatinine 0.72 Est Cr Clr Drug Dosing Not Reportable Est GFR ( Amer) 134.9 Est GFR (Non-Af Amer) 116.4 BUN/Creatinine Ratio 7.0 L Glucose 154 H POC Glucose Calcium 8.8 Total Bilirubin 1.7 H AST 12 L ALT 16 Alkaline Phosphatase 89 Total Protein 7.6 Albumin 3.8 Globulin 3.8 Albumin/Globulin Ratio 1.0 TSH 2.380 Urine Color Urine Appearance Urine pH Ur Specific [place] Urine Protein Urine Glucose (UA) Urine Ketones Urine Blood Urine Nitrite Urine Bilirubin Urine Urobilinogen Ur Leukocyte Esterase Urine WBC (Auto) Urine RBC (Auto) U Hyaline Cast (Auto) U Epithel Cells (Auto) Urine Bacteria (Auto) Salicylates < 1.7 L Urine Opiates Screen Ur Methadone, Qual Acetaminophen < 2 L Urine Barbiturates Ur Phencyclidine (PCP) U Amphetamin/Meth Scrn MDMA (Ecstasy) Screen U Benzodiazepines Scrn Ur Cocaine Metabolite U Marijuana (THC) Screen Ethyl Alcohol mg/dL < 3.0 11/18/19 11/19/19 11/19/19 22:52 08:04 08:07 WBC RBC Hgb Hct MCV MCH MCHC RDW Std Deviation RDW Coeff of Keanu Plt Count MPV Immature Gran % (Auto) Neut % (Auto) Lymph % (Auto) Hand % (Auto) Eos % (Auto) Baso % (Auto) Neut # (Auto) Lymph # (Auto) Hand # (Auto) Eos # (Auto) Baso # (Auto) Immature Gran # (Auto) Sodium Potassium Chloride Carbon Dioxide Anion Gap BUN Creatinine Est Cr Clr Drug Dosing Est GFR ( Amer) Est GFR (Non-Af Amer) BUN/Creatinine Ratio Glucose POC Glucose 168 H 374 H* 379 H* Calcium Total Bilirubin AST ALT Alkaline Phosphatase Total Protein Albumin Globulin Albumin/Globulin Ratio TSH Urine Color Urine Appearance Urine pH Ur Specific [place] Urine Protein Urine Glucose (UA) Urine Ketones Urine Blood Urine Nitrite Urine Bilirubin Urine Urobilinogen Ur Leukocyte Esterase Urine WBC (Auto) Urine RBC (Auto) U Hyaline Cast (Auto) U Epithel Cells (Auto) Urine Bacteria (Auto) Salicylates Urine Opiates Screen Ur Methadone, Qual Acetaminophen Urine Barbiturates Ur Phencyclidine (PCP) U Amphetamin/Meth Scrn MDMA (Ecstasy) Screen U Benzodiazepines Scrn Ur Cocaine Metabolite U Marijuana (THC) Screen Ethyl Alcohol mg/dL 11/19/19 11/19/19 11/19/19 12:33 16:57 19:49 WBC RBC Hgb Hct MCV MCH MCHC RDW Std Deviation RDW Coeff of Keanu Plt Count MPV Immature Gran % (Auto) Neut % (Auto) Lymph % (Auto) Hand % (Auto) Eos % (Auto) Baso % (Auto) Neut # (Auto) Lymph # (Auto) Hand # (Auto) Eos # (Auto) Baso # (Auto) Immature Gran # (Auto) Sodium Potassium Chloride Carbon Dioxide Anion Gap BUN Creatinine Est Cr Clr Drug Dosing Est GFR ( Amer) Est GFR (Non-Af Amer) BUN/Creatinine Ratio Glucose POC Glucose 164 H 202 H 63 L* Calcium Total Bilirubin AST ALT Alkaline Phosphatase Total Protein Albumin Globulin Albumin/Globulin Ratio TSH Urine Color Urine Appearance Urine pH Ur Specific [place] Urine Protein Urine Glucose (UA) Urine Ketones Urine Blood Urine Nitrite Urine Bilirubin Urine Urobilinogen Ur Leukocyte Esterase Urine WBC (Auto) Urine RBC (Auto) U Hyaline Cast (Auto) U Epithel Cells (Auto) Urine Bacteria (Auto) Salicylates Urine Opiates Screen Ur Methadone, Qual Acetaminophen Urine Barbiturates Ur Phencyclidine (PCP) U Amphetamin/Meth Scrn MDMA (Ecstasy) Screen U Benzodiazepines Scrn Ur Cocaine Metabolite U Marijuana (THC) Screen Ethyl Alcohol mg/dL 11/19/19 11/19/19 11/20/19 19:51 20:17 08:28 WBC RBC Hgb Hct MCV MCH MCHC RDW Std Deviation RDW Coeff of Keanu Plt Count MPV Immature Gran % (Auto) Neut % (Auto) Lymph % (Auto) Hand % (Auto) Eos % (Auto) Baso % (Auto) Neut # (Auto) Lymph # (Auto) Hand # (Auto) Eos # (Auto) Baso # (Auto) Immature Gran # (Auto) Sodium Potassium Chloride Carbon Dioxide Anion Gap BUN Creatinine Est Cr Clr Drug Dosing Est GFR ( Amer) Est GFR (Non-Af Amer) BUN/Creatinine Ratio Glucose POC Glucose 64 L* 126 H 268 H Calcium Total Bilirubin AST ALT Alkaline Phosphatase Total Protein Albumin Globulin Albumin/Globulin Ratio TSH Urine Color Urine Appearance Urine pH Ur Specific [place] Urine Protein Urine Glucose (UA) Urine Ketones Urine Blood Urine Nitrite Urine Bilirubin Urine Urobilinogen Ur Leukocyte Esterase Urine WBC (Auto) Urine RBC (Auto) U Hyaline Cast (Auto) U Epithel Cells (Auto) Urine Bacteria (Auto) Salicylates Urine Opiates Screen Ur Methadone, Qual Acetaminophen Urine Barbiturates Ur Phencyclidine (PCP) U Amphetamin/Meth Scrn MDMA (Ecstasy) Screen U Benzodiazepines Scrn Ur Cocaine Metabolite U Marijuana (THC) Screen Ethyl Alcohol mg/dL 11/20/19 11/20/19 11/20/19 13:00 16:36 20:49 WBC RBC Hgb Hct MCV MCH MCHC RDW Std Deviation RDW Coeff of Keanu Plt Count MPV Immature Gran % (Auto) Neut % (Auto) Lymph % (Auto) Hand % (Auto) Eos % (Auto) Baso % (Auto) Neut # (Auto) Lymph # (Auto) Hand # (Auto) Eos # (Auto) Baso # (Auto) Immature Gran # (Auto) Sodium Potassium Chloride Carbon Dioxide Anion Gap BUN Creatinine Est Cr Clr Drug Dosing Est GFR ( Amer) Est GFR (Non-Af Amer) BUN/Creatinine Ratio Glucose POC Glucose 230 H 89 155 H Calcium Total Bilirubin AST ALT Alkaline Phosphatase Total Protein Albumin Globulin Albumin/Globulin Ratio TSH Urine Color Urine Appearance Urine pH Ur Specific [place] Urine Protein Urine Glucose (UA) Urine Ketones Urine Blood Urine Nitrite Urine Bilirubin Urine Urobilinogen Ur Leukocyte Esterase Urine WBC (Auto) Urine RBC (Auto) U Hyaline Cast (Auto) U Epithel Cells (Auto) Urine Bacteria (Auto) Salicylates Urine Opiates Screen Ur Methadone, Qual Acetaminophen Urine Barbiturates Ur Phencyclidine (PCP) U Amphetamin/Meth Scrn MDMA (Ecstasy) Screen U Benzodiazepines Scrn Ur Cocaine Metabolite U Marijuana (THC) Screen Ethyl Alcohol mg/dL 11/21/19 11/21/19 11/21/19 08:02 12:13 12:32 WBC RBC Hgb Hct MCV MCH MCHC RDW Std Deviation RDW Coeff of Keanu Plt Count MPV Immature Gran % (Auto) Neut % (Auto) Lymph % (Auto) Hand % (Auto) Eos % (Auto) Baso % (Auto) Neut # (Auto) Lymph # (Auto) Hand # (Auto) Eos # (Auto) Baso # (Auto) Immature Gran # (Auto) Sodium Potassium Chloride Carbon Dioxide Anion Gap BUN Creatinine Est Cr Clr Drug Dosing Est GFR ( Amer) Est GFR (Non-Af Amer) BUN/Creatinine Ratio Glucose POC Glucose 197 H 60 L* 85 Calcium Total Bilirubin AST ALT Alkaline Phosphatase Total Protein Albumin Globulin Albumin/Globulin Ratio TSH Urine Color Urine Appearance Urine pH Ur Specific [place] Urine Protein Urine Glucose (UA) Urine Ketones Urine Blood Urine Nitrite Urine Bilirubin Urine Urobilinogen Ur Leukocyte Esterase Urine WBC (Auto) Urine RBC (Auto) U Hyaline Cast (Auto) U Epithel Cells (Auto) Urine Bacteria (Auto) Salicylates Urine Opiates Screen Ur Methadone, Qual Acetaminophen Urine Barbiturates Ur Phencyclidine (PCP) U Amphetamin/Meth Scrn MDMA (Ecstasy) Screen U Benzodiazepines Scrn Ur Cocaine Metabolite U Marijuana (THC) Screen Ethyl Alcohol mg/dL 11/21/19 11/21/1911/20/20 14:40 16:55 20:51 WBC RBC Hgb Hct MCV MCH MCHC RDW Std Deviation RDW Coeff of Keanu Plt Count MPV Immature Gran % (Auto) Neut % (Auto) Lymph % (Auto) Hand % (Auto) Eos % (Auto) Baso % (Auto) Neut # (Auto) Lymph # (Auto) Hand # (Auto) Eos # (Auto) Baso # (Auto) Immature Gran # (Auto) Sodium Potassium Chloride Carbon Dioxide Anion Gap BUN Creatinine Est Cr Clr Drug Dosing Est GFR ( Amer) Est GFR (Non-Af Amer) BUN/Creatinine Ratio Glucose POC Glucose 97 98 101 H Calcium Total Bilirubin AST ALT Alkaline Phosphatase Total Protein Albumin Globulin Albumin/Globulin Ratio TSH Urine Color Urine Appearance Urine pH Ur Specific [place] Urine Protein Urine Glucose (UA) Urine Ketones Urine Blood Urine Nitrite Urine Bilirubin Urine Urobilinogen Ur Leukocyte Esterase Urine WBC (Auto) Urine RBC (Auto) U Hyaline Cast (Auto) U Epithel Cells (Auto) Urine Bacteria (Auto) Salicylates Urine Opiates Screen Ur Methadone, Qual Acetaminophen Urine Barbiturates Ur Phencyclidine (PCP) U Amphetamin/Meth Scrn MDMA (Ecstasy) Screen U Benzodiazepines Scrn Ur Cocaine Metabolite U Marijuana (THC) Screen Ethyl Alcohol mg/dL 11/22/19 11/22/19 11/22/19 08:27 12:26 15:20 WBC RBC Hgb Hct MCV MCH MCHC RDW Std Deviation RDW Coeff of Keanu Plt Count MPV Immature Gran % (Auto) Neut % (Auto) Lymph % (Auto) Hand % (Auto) Eos % (Auto) Baso % (Auto) Neut # (Auto) Lymph # (Auto) Hand # (Auto) Eos # (Auto) Baso # (Auto) Immature Gran # (Auto) Sodium Potassium Chloride Carbon Dioxide Anion Gap BUN Creatinine Est Cr Clr Drug Dosing Est GFR ( Amer) Est GFR (Non-Af Amer) BUN/Creatinine Ratio Glucose POC Glucose 179 H 219 H 68 L* Calcium Total Bilirubin AST ALT Alkaline Phosphatase Total Protein Albumin Globulin Albumin/Globulin Ratio TSH Urine Color Urine Appearance Urine pH Ur Specific [place] Urine Protein Urine Glucose (UA) Urine Ketones Urine Blood Urine Nitrite Urine Bilirubin Urine Urobilinogen Ur Leukocyte Esterase Urine WBC (Auto) Urine RBC (Auto) U Hyaline Cast (Auto) U Epithel Cells (Auto) Urine Bacteria (Auto) Salicylates Urine Opiates Screen Ur Methadone, Qual Acetaminophen Urine Barbiturates Ur Phencyclidine (PCP) U Amphetamin/Meth Scrn MDMA (Ecstasy) Screen U Benzodiazepines Scrn Ur Cocaine Metabolite U Marijuana (THC) Screen Ethyl Alcohol mg/dL 11/22/19 11/22/19 11/22/19 15:33 17:24 20:37 WBC RBC Hgb Hct MCV MCH MCHC RDW Std Deviation RDW Coeff of Keanu Plt Count MPV Immature Gran % (Auto) Neut % (Auto) Lymph % (Auto) Hand % (Auto) Eos % (Auto) Baso % (Auto) Neut # (Auto) Lymph # (Auto) Hand # (Auto) Eos # (Auto) Baso # (Auto) Immature Gran # (Auto) Sodium Potassium Chloride Carbon Dioxide Anion Gap BUN Creatinine Est Cr Clr Drug Dosing Est GFR ( Amer) Est GFR (Non-Af Amer) BUN/Creatinine Ratio Glucose POC Glucose 108 H 90 248 H Calcium Total Bilirubin AST ALT Alkaline Phosphatase Total Protein Albumin Globulin Albumin/Globulin Ratio TSH Urine Color Urine Appearance Urine pH Ur Specific [place] Urine Protein Urine Glucose (UA) Urine Ketones Urine Blood Urine Nitrite Urine Bilirubin Urine Urobilinogen Ur Leukocyte Esterase Urine WBC (Auto) Urine RBC (Auto) U Hyaline Cast (Auto) U Epithel Cells (Auto) Urine Bacteria (Auto) Salicylates Urine Opiates Screen Ur Methadone, Qual Acetaminophen Urine Barbiturates Ur Phencyclidine (PCP) U Amphetamin/Meth Scrn MDMA (Ecstasy) Screen U Benzodiazepines Scrn Ur Cocaine Metabolite U Marijuana (THC) Screen Ethyl Alcohol mg/dL 11/23/19 11/23/19 11/23/19 08:28 12:54 15:42 WBC RBC Hgb Hct MCV MCH MCHC RDW Std Deviation RDW Coeff of Keanu Plt Count MPV Immature Gran % (Auto) Neut % (Auto) Lymph % (Auto) Hand % (Auto) Eos % (Auto) Baso % (Auto) Neut # (Auto) Lymph # (Auto) Hand # (Auto) Eos # (Auto) Baso # (Auto) Immature Gran # (Auto) Sodium Potassium Chloride Carbon Dioxide Anion Gap BUN Creatinine Est Cr Clr Drug Dosing Est GFR ( Amer) Est GFR (Non-Af Amer) BUN/Creatinine Ratio Glucose POC Glucose 210 H 149 H 70 Calcium Total Bilirubin AST ALT Alkaline Phosphatase Total Protein Albumin Globulin Albumin/Globulin Ratio TSH Urine Color Urine Appearance Urine pH Ur Specific [place] Urine Protein Urine Glucose (UA) Urine Ketones Urine Blood Urine Nitrite Urine Bilirubin Urine Urobilinogen Ur Leukocyte Esterase Urine WBC (Auto) Urine RBC (Auto) U Hyaline Cast (Auto) U Epithel Cells (Auto) Urine Bacteria (Auto) Salicylates Urine Opiates Screen Ur Methadone, Qual Acetaminophen Urine Barbiturates Ur Phencyclidine (PCP) U Amphetamin/Meth Scrn MDMA (Ecstasy) Screen U Benzodiazepines Scrn Ur Cocaine Metabolite U Marijuana (THC) Screen Ethyl Alcohol mg/dL 11/23/19 11/24/19 11/24/19 21:38 08:48 12:22 WBC RBC Hgb Hct MCV MCH MCHC RDW Std Deviation RDW Coeff of Keanu Plt Count MPV Immature Gran % (Auto) Neut % (Auto) Lymph % (Auto) Hand % (Auto) Eos % (Auto) Baso % (Auto) Neut # (Auto) Lymph # (Auto) Hand # (Auto) Eos # (Auto) Baso # (Auto) Immature Gran # (Auto) Sodium Potassium Chloride Carbon Dioxide Anion Gap BUN Creatinine Est Cr Clr Drug Dosing Est GFR ( Amer) Est GFR (Non-Af Amer) BUN/Creatinine Ratio Glucose POC Glucose 182 H 200 H 225 H Calcium Total Bilirubin AST ALT Alkaline Phosphatase Total Protein Albumin Globulin Albumin/Globulin Ratio TSH Urine Color Urine Appearance Urine pH Ur Specific [place] Urine Protein Urine Glucose (UA) Urine Ketones Urine Blood Urine Nitrite Urine Bilirubin Urine Urobilinogen Ur Leukocyte Esterase Urine WBC (Auto) Urine RBC (Auto) U Hyaline Cast (Auto) U Epithel Cells (Auto) Urine Bacteria (Auto) Salicylates Urine Opiates Screen Ur Methadone, Qual Acetaminophen Urine Barbiturates Ur Phencyclidine (PCP) U Amphetamin/Meth Scrn MDMA (Ecstasy) Screen U Benzodiazepines Scrn Ur Cocaine Metabolite U Marijuana (THC) Screen Ethyl Alcohol mg/dL 11/24/19 11/24/19 11/24/19 12:25 16:57 20:24 WBC RBC Hgb Hct MCV MCH MCHC RDW Std Deviation RDW Coeff of Keanu Plt Count MPV Immature Gran % (Auto) Neut % (Auto) Lymph % (Auto) Hand % (Auto) Eos % (Auto) Baso % (Auto) Neut # (Auto) Lymph # (Auto) Hand # (Auto) Eos # (Auto) Baso # (Auto) Immature Gran # (Auto) Sodium Potassium Chloride Carbon Dioxide Anion Gap BUN Creatinine Est Cr Clr Drug Dosing Est GFR ( Amer) Est GFR (Non-Af Amer) BUN/Creatinine Ratio Glucose POC Glucose 218 H 113 H 67 L* Calcium Total Bilirubin AST ALT Alkaline Phosphatase Total Protein Albumin Globulin Albumin/Globulin Ratio TSH Urine Color Urine Appearance Urine pH Ur Specific [place] Urine Protein Urine Glucose (UA) Urine Ketones Urine Blood Urine Nitrite Urine Bilirubin Urine Urobilinogen Ur Leukocyte Esterase Urine WBC (Auto) Urine RBC (Auto) U Hyaline Cast (Auto) U Epithel Cells (Auto) Urine Bacteria (Auto) Salicylates Urine Opiates Screen Ur Methadone, Qual Acetaminophen Urine Barbiturates Ur Phencyclidine (PCP) U Amphetamin/Meth Scrn MDMA (Ecstasy) Screen U Benzodiazepines Scrn Ur Cocaine Metabolite U Marijuana (THC) Screen Ethyl Alcohol mg/dL 11/24/19 11/25/19 11/25/19 20:47 08:33 12:12 WBC RBC Hgb Hct MCV MCH MCHC RDW Std Deviation RDW Coeff of Keanu Plt Count MPV Immature Gran % (Auto) Neut % (Auto) Lymph % (Auto) Hand % (Auto) Eos % (Auto) Baso % (Auto) Neut # (Auto) Lymph # (Auto) Hand # (Auto) Eos # (Auto) Baso # (Auto) Immature Gran # (Auto) Sodium Potassium Chloride Carbon Dioxide Anion Gap BUN Creatinine Est Cr Clr Drug Dosing Est GFR ( Amer) Est GFR (Non-Af Amer) BUN/Creatinine Ratio Glucose POC Glucose 122 H 189 H 193 H Calcium Total Bilirubin AST ALT Alkaline Phosphatase Total Protein Albumin Globulin Albumin/Globulin Ratio TSH Urine Color Urine Appearance Urine pH Ur Specific [place] Urine Protein Urine Glucose (UA) Urine Ketones Urine Blood Urine Nitrite Urine Bilirubin Urine Urobilinogen Ur Leukocyte Esterase Urine WBC (Auto) Urine RBC (Auto) U Hyaline Cast (Auto) U Epithel Cells (Auto) Urine Bacteria (Auto) Salicylates Urine Opiates Screen Ur Methadone, Qual Acetaminophen Urine Barbiturates Ur Phencyclidine (PCP) U Amphetamin/Meth Scrn MDMA (Ecstasy) Screen U Benzodiazepines Scrn Ur Cocaine Metabolite U Marijuana (THC) Screen Ethyl Alcohol mg/dL 11/25/19 11/25/19 11/26/19 16:05 20:18 07:48 WBC RBC Hgb Hct MCV MCH MCHC RDW Std Deviation RDW Coeff of Keanu Plt Count MPV Immature Gran % (Auto) Neut % (Auto) Lymph % (Auto) Hand % (Auto) Eos % (Auto) Baso % (Auto) Neut # (Auto) Lymph # (Auto) Hand # (Auto) Eos # (Auto) Baso # (Auto) Immature Gran # (Auto) Sodium Potassium Chloride Carbon Dioxide Anion Gap BUN Creatinine Est Cr Clr Drug Dosing Est GFR ( Amer) Est GFR (Non-Af Amer) BUN/Creatinine Ratio Glucose POC Glucose 89 104 H 161 H Calcium Total Bilirubin AST ALT Alkaline Phosphatase Total Protein Albumin Globulin Albumin/Globulin Ratio TSH Urine Color Urine Appearance Urine pH Ur Specific [place] Urine Protein Urine Glucose (UA) Urine Ketones Urine Blood Urine Nitrite Urine Bilirubin Urine Urobilinogen Ur Leukocyte Esterase Urine WBC (Auto) Urine RBC (Auto) U Hyaline Cast (Auto) U Epithel Cells (Auto) Urine Bacteria (Auto) Salicylates Urine Opiates Screen Ur Methadone, Qual Acetaminophen Urine Barbiturates Ur Phencyclidine (PCP) U Amphetamin/Meth Scrn MDMA (Ecstasy) Screen U Benzodiazepines Scrn Ur Cocaine Metabolite U Marijuana (THC) Screen Ethyl Alcohol mg/dL Hospital Course (1) Suicidal ideation: 11/18 -continue voluntary hospitalization, suicide checks for safety. -SI is chronic, with a longstanding plan to overdose and access to multiple medications as well as a bottle of Tylenol they have specifically for that purpose. Ideally, safety plan would involve someone else holding medications during periods of instability; unfortunately, pt states they have no supports and that there is no one they would be willing to involve in a safety plan. Pt is in DBT and outpatient therapist is aware of chronic SI. 11/19 - Reports mild improvement in severity of SI, but thoughts continue with greater intensity than patient feels they could safely manage outside of the hospital se tting - Recognizes complete resolution of SI is likely not an obtainable goal during this acute hospitalization, given history of chronic SI for most of their life; however, feels SI continues to be too active to be able to contract for safety if discharged 11/20 -Suicidal thoughts and urges to self injure continue, patient working on coping strategies. 11/22 - Pt able to come to staff this morning and present items they had considered using to self-harm (several long socks, toothbrush, hairbrush). Pt continues to experience intermittent active SI - States they are able to contract for safety here in the hospital, but is not so sure they would be able to avoid potentially harmful items/medications if they were discharged 11/23 - Not yet able to convincingly contract for safety outside of the hospital setting; however, SI today has been passive and less overwhelming. - Continue to encourage patient to come to staff with any acute safety concerns 11/25 -Patient reports SI has returned to baseline levels, denies intent or plan currently, and is able to review discharge safety plan. Urges to self injure by cutting or scratching continue, are intermittent, and are at baseline levels. (2) Borderline personality disorder: 11/18 -coordinate care with outpatient clinicians at the [facility] psych clinic, and obtain records to clarify diagnoses. -Consistent boundaries. Continue DBT upon discharge. 11/19 - Demonstrating decent insight into BPD diagnosis and behavioral tendencies related to this condition. - Continue DBT groups and individual counseling 11/23 - Continue to offer support and encouragement while maintaining appropriate boundaries. - Re-orient attention toward specific treatment goals 11/25 -Follow-up with individual therapist today, and return to weekly DBT group next week. (3) Depression with anxiety: 11/18 -patient reports sertraline has been beneficial in the past, but has been noncompliant with it recently. Resume 50 mg daily and titrate as tolerated. Psychoeducation provided regarding importance of medication adherence for optimal effect, and potential for need for a higher dose to adequately treat anxiety. Pt has been diagnosed with anxiety NOS in the past, with symptoms of NESHA, panic, and PTSD. -Continue home dose of lorazepam as needed. 11/19 - Titrate sertraline to 100mg starting tomorrow morning - would recommend target dose of at least 150mg, patient reports being on that dose for only a few weeks before stopping medications. Need for additional titration can be discussed with outpatient psychiatric provider - Reports mild improvement in episodes of heightened anxiety; however, baseline anxiety remains a 7/10 (10=most intense) - Discussed utilization of hydroxyzine as needed for anxiety/sleep - adjust dosing as needed, patient reports history of excessive sedation. Lorazepam remains available as needed - Pt openly discusses history of "dissociation" and "flashbacks", often triggered by childhood memories - treatment trajectory remains appropriate, but higher suspicion of PTSD is present 11/20 -Sertraline increased to 100 mg daily, consider further titration over the next several days. Continue lorazepam and hydroxyzine as needed. 11/21 -Reduce sertraline to 75 mg at patient's request due to concerns for nausea. Continue to offer ondansetron as needed 11/22 - Reports resolution of nausea, requesting and willing to increase sertraline back to 100mg tomorrow morning. Pt continues to have prn ondansetron available as needed - Discussed indications to request prn medication for anxiety, and will reduce hydroxyzine daytime dosing to 10mg q4h prn as patient reports one barrier to requesting the medication has been the concern it will be overly sedating - HS dosing reduced to 25mg qHS with one repeat dose available is needed - Pt continues to endorse suicidality with inability to contract for safety outside of the hospital setting. They have been processing during 1:1 sessions with counselors. - Self-harm urges are ongoing, patient able to present concerning items to staff. 11/23 - Tolerated titration of sertraline to 100mg - likely to require further titration to a dose of 150mg or even higher on an outpatient basis; however, concern for nausea with rapid titration - Continuing to find group programming and individual counseling sessions to be beneficial - Processing self-harm urges with staff, reporting suicidal ideation at this time is passive - though not yet able to contract for safety outside of the ospital setting - Pt reports she is not yet ready for discharge, but is hopeful to leave in time to meet with her individual therapist the afternoon of 11/25 11/24 - Continue sertraline 100mg - Continue to encourage group participate and 1:1 counseling to further develop confidence in using healthy and effective coping strategies and solidify a safety plan - Discussed plan for discharge tomorrow, and can then get to outpatient individual therapy appointment 11/25 -Continue sertraline 100 mg; patient has prescription at home. Patient requested prescription for hydroxyzine 25 mg at bedtime as needed insomnia. -Follow-up with NAVDEEP Kerns, PhD on 12/01/2019. (4) Eating disorder: 11/18 -history of diagnosis of eating disorder NOS, recently restricting with 10 pound weight loss. Although not a focus of treatment here, will provide education regarding the importance of good nutrition for optimal functioning and health, monitor p.o. intake. -Vital signs stable, no electrolyte abnormalities 11/20 -eating well here, continue to focus on good nutrition for optimal functioning, mentally and physically. 11/21 -patient would benefit from working with a fur designer; states they have seen one at [facility] but treatment was not eating disorder focused. (5) Type I diabetes mellitus: 11/18 -continue home medications, diabetic/gluten-free diet, and consult diabetic pharmacist. (6) Migraines: 11/18 -acetaminophen as needed, if ineffective may use Toradol. Patient reports a bad reaction to Imitrex. -Follow-up with neurology (appointment scheduled next month). Mental Health & Subst Abuse Tx Psychiatrist Name of Psychiatrist: [facility] - Dr. Sahu Psychiatrist's Date of Appointment with Psychiatrist: 12/01/19 Time of Appointment with Psychiatrist: 9:00 a.m. Psychiatric Appointment Comment: [address] [place] [address] Therapist Name of Therapist: [facility] - Cary Levin Therapist's Date of Therapist Appointment: 11/26/19 Time of Therapist Appointment: 3:00 p.m. Therapy Appointment Comment: [address] [place] [address] Post Discharge Appointments [facility] Time of Appointment with PCP: Please follow up as needed Provider Appointment Comment: [address] [place] [address] Smoking Cessation Counseling Tobacco Cessation Medication Prescribed at Discharge: Not Applicable/Non-Smoker Contact Information Discharge Discharge Address: [address] [place] [id number] Discharge Plan Discharge Items Patient Disposition: Home - Self-Care Reason For Visit: MOOD DISORDER Discharge Diagnosis: Depression Activity: Per Instructions section Non-emergency contact: Psychiatrist and Therapist Call non-emergency contact if: you have any medication questions and your symptoms worsen Follow-up/Referrals: Darian Murray, [Primary Care Provider] - Diet: Carb Count or DM1 and Gluten Free Addtl Attending Provider Instructions: SPECIAL CARE INSTRUCTIONS: 1. Follow through with your scheduled aftercare appointments. If unable to keep an appointment, please call to reschedule. 2. Take your medication only as prescribed. Medication should not be changed or stopped without the approval of your doctor. In the event of worsening symptoms or concerns about side effects, contact your doctor immediately. 3. Utilize new healthy coping skills, anger management skills, and stress management skills learned during your hospitalization. Journal feelings and process them with a support person. Identify stressors or situations that may result in relapse, deterioration or inappropriate behaviors and develop a plan to deal with those issues. 4. If your coping skills are ineffective and you are in crisis, contact your outpatient providers for direction. If unable to reach your providers, please call the CAN HELP LINE AT or go to the closest Emergency Room. 5. Avoid alcohol and un-prescribed drugs. 6. You have been provided with the Mental Health Advance Directives Pamphlet for your review. AFTERCARE APPOINTMENTS: * Please call your insurance company prior to your scheduled appointment to confirm your aftercare providers are covered. Take your insurance information to your appointments. WHO TO CALL AND WHEN: Medical Emergencies: For questions or emergencies related to your hospital stay, please contact the Inpatient Behavioral Health Unit at [phone]. A health clinician is on-call 26/11 for the Behavioral Health Unit for emergencies At any time you feel your situation is an emergency, you may also call 911 immediately. Your Doctors Instructions noted above were prepared by provider Nata Blackburn MD. Pending Studies at Discharge: No Stand-Alone Forms: My [facility] [employer] [place], Smoking Cessation, Suicide Prevention Resources Medications and DC Order Prescriptions: New hydroxyzine HCl 25 mg Tablet 25 mg PO HSZ PRN (Reason: insomnia) Qty: 7 RF: 0 Continued ondansetron HCl [Zofran] 8 mg tablet 8 mg PO DAILY PRN (Reason: Nausea) RF: 0 lorazepam [Ativan] 0.5 mg tablet 0.5 mg PO DAILY PRN (Reason: Anxiety) RF: 0 Basaglar KwikPen U-100 Insulin 100 unit/mL (3 mL) insulin pen 19 units SQ DAILY PRN (Reason: Novolog Pump Failure) RF: 0 Novolog U-100 Insulin aspart 100 unit/mL solution See Rx Instructions SQ DAILY Qty: 30 RF: 5 (DME) Ketostix strip See Rx Instructions .ROUTE .MEDSUPPLY Qty: 100 RF: 2 cholecalciferol (vitamin D3) 50,000 unit tablet See Rx Instructions PO .COMPLEX Qty: 14 RF: 0 azelastine 137 mcg (0.1 %) aerosol,spray 2 spray INTNAS DAILY Qty: 30 RF: 11 omeprazole 40 mg capsule,delayed release(DR/EC) See Rx Instructions .ROUTE .COMPLEX Qty: 90 RF: 3 propranolol 60 mg capsule,extended release 24 hr 60 mg PO HS Qty: 90 RF: 3 Glucagon (HCl) Emergency Kit 1 mg recon soln 1 mg IM Q20M PRN (Reason: hypoglycemia) Qty: 1 RF: 3 albuterol sulfate [Ventolin HFA] 90 mcg/actuation HFA aerosol inhaler 2 puffs INH Q4H PRN (Reason: Shortness Of Breath Or Wheezing) Qty: 18 RF: 5 (DME) Aerochamber MV spacer See Rx Instructions .ROUTE .MEDSUPPLY Qty: 1 RF: 0 ketorolac 10 mg tablet 10 mg PO Q6H PRN (Reason: pain) Qty: 6 RF: 0 Linzess 145 mcg capsule 145 mcg PO DAILY Qty: 30 RF: 11 epinephrine [EpiPen] 0.3 mg/0.3 mL auto-injector 0.3 mg IM DIRECTED PRN (Reason: Anaphylaxis) Qty: 2 RF: 0 sertraline 100 mg tablet 100 mg PO DAILY RF: 0 Flovent HFA 220 mcg/actuation HFA aerosol inhaler 1 puff INHALATION BID RF: 0 Discharge Orders: Discharge Order (Routine); Ordered 11/26/19 Ordered By: Nata Blackburn Admission Data Admit Date/Time: 11/18/19 21:13 Attending Provider: Nata Blackburn Admit Provider: Uriel Starr Primary Care Provider: Darian Murray Other Interventions: PSY Interdisciplinary Discharge Planning Last Done: 11/25/19 11:26 Coding Level of Care Code 33488 D/C day mgmt > 30 min Diagnoses Suicidal ideation R45.851 Borderline personality disorder F60.3 Depression with anxiety F41.8 Eating disorder F50.9 Type I diabetes mellitus E10.9 Migraines G43.909
[2019-11-26] MEDS: FLUTICASONE FUROATE 200MCG 14 PUFFS/INHALER INH SCH (08:57)
[2019-11-26] MEDS: PANTOprazole 40 MG TAB PO SCH (08:58)
[2019-11-26] MEDS: SERTRALINE HCL 100 MG TABLET PO SCH (08:58)
[2019-11-26] MEDS: INSULIN GLARGINE SOLOSTAR 100 UNITS/ML 3 ML PEN SC SCH (09:17)
[2019-12-27] MEDS ORDERED: ALUMINUM/MAGNESIUM SUSP 30 ML UDC PO PRN (18:30)
[2019-12-27] MEDS ORDERED: SODIUM CHLORIDE 0.65% NA SOLN 45 ML (OCEAN) PRN (18:30)
[2019-12-27] MEDS ORDERED: ACETAMINOPHEN 325 MG TAB PO PRN (18:30)
[2019-12-27] MEDS ORDERED: MAGNESIUM HYDROXIDE SUSP 30 ML UDC PO PRN (18:30)
[2019-12-27] MEDS ORDERED: BISMUTH SUBSALICYLATE PER ML OMNICELL CHARGE PO PRN (18:30)
== END 2019-11-26 09:45 | disposition home or self-care (01) | DRG 883 ==
LOC: ED 17:04 → 3S 21:04

== ENCOUNTER 2019-12-27 15:35 | Inpatient (IN) ==
[2019-12-27 16:21] LABS: Appearance Urine Clear (Clear); Bacteria Urine Automated Negative (Negative); Bilirubin Urine Negative (Negative); Blood Urine Negative (Negative); Color Urine Yellow; Epithelial Cell Urine Auto >30 /lpf (0-5); Glucose Urine UA Trace (Negative); Ketones Urine Negative (Negative); Leukocyte Esterase Urine 1+ (Negative); Nitrite Urine Negative (Negative); Protein Urine Negative (Negative); RBC Urine Automated 0-4 /hpf (0-4); Specific Gravity Urine 1.013 (1.000-1.030); Urobilinogen Urine Negative (Negative); pH Urine 5.5 (4.5-7.5)
[2019-12-27 16:34] LABS: Basophils # (auto) 0.03 K/uL (0-0.2); Basophils % (auto) 0.4 %; Eosinophils # (auto) 0.06 K/uL (0-0.5); Eosinophils % (auto) 0.7 %; Hematocrit (blood only) 45.1 % (37-47); Hemoglobin 15.5 g/dL (12.0-16.0); Immature Granulocytes # (auto) 0.02 K/uL (0.00-0.02); Immature Granulocytes % (auto) 0.2 %; Lymphocytes # (auto) 1.83 K/uL (1.2-3.4); Lymphocytes % (auto) 22.2 %; Mean Corpuscular Hemoglobin 31.3 pg (25-34); Mean Corpuscular Hgb Conc 34.4 g/dL (32-36); Mean Corpuscular Volume 90.9 fL (80-100); Monocytes # (auto) 0.68 K/uL (0.11-0.59); Monocytes % (auto) 8.3 %; Neutrophils # (auto) 5.61 K/uL (1.4-6.5); Neutrophils % (auto) 68.2 %; Platelet Count 377 K/uL (130-400); Red Blood Count 4.96 M/uL (4.2-5.4); White Blood Count 8.23 K/uL (4.8-10.8)
[2019-12-27 16:35] LABS: Amphetamines+Metham, Urine Neg (Neg); Barbiturates, Urine Neg (Neg); Benzodiazepine, Urine Neg (Neg); Cocaine, Urine Neg (Neg); MDMA (Ecstacy), Urine Neg (Neg); Methadone, Urine Neg (Neg); Opiate, Urine Neg (Neg); Phencyclidine, Urine Neg (Neg)
[2019-12-27 16:51] LABS: Albumin Level 4.3 gm/dl (3.4-5.0); Calcium 9.3 mg/dl (8.5-10.1); Creatinine Clr Calc Pharmacy 85.4 ml/min; Est GFR (African American) 107.3; Est GFR (Non-African American) 92.6; Potassium 4.4 mmol/L (3.5-5.1)
[2019-12-27 16:58] LABS: Pregnancy Test, Serum Negative (Negative)
[2019-12-27 17:01] LABS: Bilirubin,Total 2.2 mg/dl (0.2-1); Globulin 4.2 gm/dl (2.5-4.0); Thyroid Stimulating Hormone 1.47 uIu/ml (0.300-4.500); Total Protein 8.5 gm/dl (6.4-8.2)
--- NOTE | 2019-12-27 17:04 | Emergency Department Note ---
Impression & Plan Depression with suicidal ideation ED Provider Note Provider: Ti Walden MD DATE OF SERVICE: 12/27/2019 CHIEF COMPLAINT: Mental health evaluation HISTORY OF PRESENT ILLNESS: Patient is a 24-year-old non-binary presenting today with complaint of depression and suicidal thoughts. Patient does have a significant past medical history of type 1 diabetes with gastroparesis, IBS, borderline personality sort of chronic suicidal ideation, celiac disease, depression anxiety, eating disorder issues, Gilbert syndrome, lumbar radiculopathy, migraines. Was referred here today from the crisis center. Patient states that she has had some chronic issues with depression in the past. Worsening last several weeks due to work and life issues. Patient states that she has had issues with sleeping too much and not enough. Patient states that she always has suicidal ideations but has now formed a plan. REVIEW OF SYSTEMS: A total of 10 review of systems was obtained and negative except as stated above in the HPI. PAST MEDICAL HISTORY: As noted above MEDICATIONS: Reviewed home medication list SOCIAL HISTORY: Former smoker, lives in apartment. No family in area. PHYSICAL EXAM: GENERAL: alert and oriented in no acute distress on stretcher Head: normocephalic and atraumatic EYES: No injection, discharge or icterus. Right strabismus ENT: Mucous membranes pink and moist. LUNGS: Airway patent. No retractions. Breath sounds clear HEART: Regular rate and rhythm. No chest wall tenderness ABDOMEN: Soft and non-tender, without guarding or rebound. Insulin pump in place on left side. SKIN: Acyanotic, warm, dry. EXTREMITIES: Without swelling, tenderness or deformity except for 2 small partially healed abrasions of the left distal forearm. No evidence of cellulitis or crepitus. No evidence of tendon injury and intact finger strength. NEUROLOGICAL: No focal deficits. No aphasia. No facial droop or slurred speech. Ambulatory. EK bpm normal sinus rhythm without PVC or PAC. No acute ST segment elevation or depression. QTC 425. Patient's hypertension was referred to PCP HOSPITAL COURSE: 1558 Patient was first seen and H&P performed. 1850 Accepted to for further inpatient care. Patient's laboratory studies and imaging reviewed. Differential includes Mood disorder, infection, hypoglycemia, electrolyte abnormalities, cardiac sources, intracerebral event, toxicologic, trauma, neurologic, as well as other pathologies. IMPRESSION/MEDICAL DECISION MAKING: Patient presents here stating depression with suicidal elation now with furtherance of plan. Concern for her safety. States he took an extra dose of Zofran but states she did not take the extra propranolol as she had planned. Not bradycardic. No QTC prolongation. Medical clearance complete with additional laboratory studies. Patient does have a small abrasion on the left wrist she states she scratched and picked open. No evidence of deep or tendon injury or superinfection. Basic wound care would be sufficient here. Did see with the hospice case manager. Believe given the active furtherance and plan the patient requires further psychiatric evaluation and treatment. Bed search made. Accepted to on 201 for further care. DIAGNOSIS: Depression with suicidal ideation DISPOSITION: Inpatient psychiatric care Past Med/Surg History Medical History (Updated 12/27/19 @ 18:46 by Ti Walden M.D.) Acid reflux disease (~2013) Allergic rhinitis Asthma Body image disorder Borderline personality disorder Cataract (lens) fragments in eye following cataract surgery, bilateral Celiac disease Depression with anxiety Diabetic gastroparesis associated with type 1 diabetes mellitus (~2016) Eating disorder Gilbert's syndrome IBS (irritable bowel syndrome) Irritable bowel syndrome with constipation Lazy eye of right side Low bone mass Lumbar radiculopathy Migraines Vitamin D deficiency Surgical History History of cataract surgery Family History Mother Alcohol abuse Celiac disease Seizure Adult celiac disease Osteoporosis Father Alcohol abuse Drug abuse Anxiety Seizure Skin cancer squamous cell Grandfather Alcohol abuse Uncle Alcohol abuse Drug abuse Brother Drug abuse Unknown Cancer Grandmother Diabetes Celiac disease Colorectal cancer Grandmother Type 1 diabetes Other Bipolar 1 disorder Denies family history of Ovarian cancer Prostate cancer Myocardial infarction Breast cancer Lung cancer Hypertension Social History Smoking Status: Former smoker Age Started Using Tobacco: 18; Age Quit Using Tobacco: 20; Cigarettes Per Day: 1 per month; Second Hand Exposure: Yes; Hx Alcohol Use: Yes Alcohol type: beer and wine Hx Substance Use: Yes Preferred Language: Georgian Communication Ability: Effective Hearing Ability: Normal Commodity Analyst Required: No Beliefs That Will Affect Care: None marital status: Single Current Living Situation: Alone current occupational status: employed current occupation: [employer] Feels Safe at Home: Yes Childhood Exposure to Second-Hand Smoke: Yes caffeine: Yes Dental Care, Regularly: Yes Physical Activity Frequency: 3-4 Times per Week Physical Activity Frequency Comment: walks Seatbelt Use: always Sunscreen Use: Yes (when in the sun for an extended time) Allergies Allergies Allergy/AdvReac Type Severity Reaction Status Date / Time gluten Allergy Severe CELIAC'S Verified 12/27/19 16:08 DISEASE Penicillins Allergy Severe ANAPHYLAXIS Verified 12/27/19 16:08 shellfish derived Allergy Severe ANAPHYLAXIS Verified 12/27/19 16:08 apple Allergy Intermediate THROAT Verified 12/27/19 16:08 SWELLS house dust Allergy Intermediate Hives Verified 12/27/19 16:08 oxcarbazepine Allergy Intermediate Rash,hives Verified 12/27/19 16:08 and itchiness. milk Allergy Unknown SENSITIVITY Verified 12/27/19 16:08 lactose AdvReac Intermediate Gatrointestinal Verified 12/27/19 16:08 Upset sumatriptan [From Imitrex] AdvReac Intermediate INTENSIFIES Verified 12/27/19 16:08 HEADACHE Home Meds Home Medications Medication Instructions Recorded Confirmed lorazepam 0.5 mg tablet 0.5 mg PO DAILY PRN 01/21/18 12/27/19 insulin glargine 100 unit/mL (3 19 units SQ DAILY PRN ml 11/26/18 12/27/19 mL) subcutaneous pen Flovent HFA 1 puff INHALATION BID PRN 04/25/19 12/27/19 sertraline 100 mg PO DAILY 07/01/19 12/27/19 albuterol sulfate 2 puff INHALATION Q4H PRN 12/27/19 12/27/19 epinephrine 0.3 mg IM DIRECTED PRN 12/27/19 12/27/19 insulin pump controller 12/27/19 12/27/19 Previous Rx's Medication Instructions Recorded acetone (urine) test #100 ea 03/23/19 insulin aspart U-100 100 unit/mL See Rx Instructions SQ DAILY #30 ml 03/23/19 subcutaneous solution linaclotide 145 mcg capsule 145 mcg PO DAILY #30 cap 03/24/19 inhalational spacing device #1 ea 03/27/19 glucagon HCl 1 mg solution for 1 mg IM Q20M PRN #1 ea 07/06/19 injection omeprazole 40 mg capsule,delayed See Rx Instructions .ROUTE 07/13/19 release .COMPLEX #90 capsule propranolol 60 mg capsule,24 60 mg PO HS #90 cap 08/05/19 hr,extended release hydroxyzine HCl 25 mg PO HSZ PRN #7 tab 11/26/19 galcanezumab-gnlm 120 mg/mL 120 mg SQ MONTHLY #1 ml 12/14/19 subcutaneous pen injector ketorolac 10 mg tablet 10 mg PO Q6H PRN #12 tab 12/14/19 ondansetron HCl 8 mg tablet 8 mg PO DAILY PRN #30 tab 12/14/19 galcanezumab-gnlm 120 mg/mL 240 mg SUBCUT .COMPLEX #2 ml 12/23/19 subcutaneous pen injector Results & Data (ED) Vital Signs Vital Signs - 24 hr 12/27/19 15:38 Temperature 37.1 C Temperature Source Oral Pulse Rate 85 Respiratory Rate 16 Respiratory Effort / Characteristics Non-Labored Spontaneous Blood Pressure 101/68 Blood Pressure Mean 79 Blood Pressure Position Sitting Pulse Oximetry 96 Oxygen Delivery Method Room Air Sepsis Recent Fever Within 48 Hours No Sepsis New/Unexplained Change in Mental Status No Sepsis Action Taken by Nursing No Action Required Laboratory Data Result diagrams: 12/27/19 16:16 12/27/19 16:16 Lab Results 12/27/19 12/27/19 12/27/19 Range/Units 15:55 15:55 16:16 WBC 8.23 (4.8-10.8) K/uL RBC 4.96 (4.2-5.4) M/uL Hgb 15.5 (12.0-16.0) g/dL Hct 45.1 (37-47) % MCV 90.9 (80-100) fL MCH 31.3 (25-34) pg MCHC 34.4 (32-36) g/dL RDW Std Deviation 40.0 (36.4-46.3) fL RDW Coeff of Keanu 12.0 (11.5-14.5) % Plt Count 377 (130-400) K/uL MPV 11.0 H (7.4-10.4) fL Immature Gran % (Auto) 0.2 % Neut % (Auto) 68.2 % Lymph % (Auto) 22.2 % Gre[place] % (Auto) 8.3 % Eos % (Auto) 0.7 % Baso % (Auto) 0.4 % Neut # (Auto) 5.61 (1.4-6.5) K/uL Lymph # (Auto) 1.83 (1.2-3.4) K/uL Greer # (Auto) 0.68 H (0.11-0.59) K/uL Eos # (Auto) 0.06 (0-0.5) K/uL Baso # (Auto) 0.03 (0-0.2) K/uL Immature Gran # (Auto) 0.02 (0.00-0.02) K/uL Sodium (136-145) mmol/L Potassium (3.5-5.1) mmol/L Chloride (98-107) mmol/L Carbon Dioxide (21-32) mmol/L Anion Gap (3-11) BUN (7-18) mg/dl Creatinine (0.6-1.2) mg/dl Est Cr Clr Drug Dosing ml/min Est GFR ( Amer) Est GFR (Non-Af Amer) BUN/Creatinine Ratio (10-20) Glucose (70-99) mg/dl Calcium (8.5-10.1) mg/dl Total Bilirubin (0.2-1) mg/dl AST (15-37) U/L ALT (12-78) U/L Alkaline Phosphatase (45-117) U/L Total Protein (6.4-8.2) gm/dl Albumin (3.4-5.0) gm/dl Globulin (2.5-4.0) gm/dl Albumin/Globulin Ratio (0.9-2) TSH (0.300-4.500) uIu/ml HCG, Qual (Negative) Urine Color Yellow Urine Appearance Clear (Clear) Urine pH 5.5 (4.5-7.5) Ur Specific [place] 1.013 (1.000-1.030) Urine Protein Negative (Negative) Urine Glucose (UA) Trace H (Negative) Urine Ketones Negative (Negative) Urine Blood Negative (Negative) Urine Nitrite Negative (Negative) Urine Bilirubin Negative (Negative) Urine Urobilinogen Negative (Negative) Ur Leukocyte Esterase 1+ H (Negative) Urine WBC (Auto) 5-10 H (0-5) /hpf Urine RBC (Auto) 0-4 (0-4) /hpf U Hyaline Cast (Auto) 1-5 (0-5) /lpf U Epithel Cells (Auto) >30 H (0-5) /lpf Urine Bacteria (Auto) Negative (Negative) Salicylates (2.8-20) mg/dl Urine Opiates Screen Neg (Neg) Ur Methadone, Qual Neg (Neg) Acetaminophen (10-30) ug/ml Urine Barbiturates Neg (Neg) Ur Phencyclidine (PCP) Neg (Neg) U Amphetamin/Meth Scrn Neg (Neg) MDMA (Ecstasy) Screen Neg (Neg) U Benzodiazepines Scrn Neg (Neg) Ur Cocaine Metabolite Neg (Neg) U Marijuana (THC) Screen Neg (Neg) Ethyl Alcohol mg/dL (0-3) mg/dl 12/27/19 12/27/19 12/27/19 Range/Units 16:16 16:16 16:16 WBC (4.8-10.8) K/uL RBC (4.2-5.4) M/uL Hgb (12.0-16.0) g/dL Hct (37-47) % MCV (80-100) fL MCH (25-34) pg MCHC (32-36) g/dL RDW Std Deviation (36.4-46.3) fL RDW Coeff of Keanu (11.5-14.5) % Plt Count (130-400) K/uL MPV (7.4-10.4) fL Immature Gran % (Auto) % Neut % (Auto) % Lymph % (Auto) % Greer % (Auto) % Eos % (Auto) % Baso % (Auto) % Neut # (Auto) (1.4-6.5) K/uL Lymph # (Auto) (1.2-3.4) K/uL Greer # (Auto) (0.11-0.59) K/uL Eos # (Auto) (0-0.5) K/uL Baso # (Auto) (0-0.2) K/uL Immature Gran # (Auto) (0.00-0.02) K/uL Sodium 137 (136-145) mmol/L Potassium 4.4 (3.5-5.1) mmol/L Chloride 104 (98-107) mmol/L Carbon Dioxide 28 (21-32) mmol/L Anion Gap 5.0 (3-11) BUN 5 L (7-18) mg/dl Creatinine 0.87 (0.6-1.2) mg/dl Est Cr Clr Drug Dosing 85.4 ml/min Est GFR ( Amer) 107.3 Est GFR (Non-Af Amer) 92.6 BUN/Creatinine Ratio 6.0 L (10-20) Glucose 142 H (70-99) mg/dl Calcium 9.3 (8.5-10.1) mg/dl Total Bilirubin 2.2 H (0.2-1) mg/dl AST 12 L (15-37) U/L ALT 14 (12-78) U/L Alkaline Phosphatase 87 (45-117) U/L Total Protein 8.5 H (6.4-8.2) gm/dl Albumin 4.3 (3.4-5.0) gm/dl Globulin 4.2 H (2.5-4.0) gm/dl Albumin/Globulin Ratio 1.0 (0.9-2) TSH 1.470 (0.300-4.500) uIu/ml HCG, Qual (Negative) Urine Color Urine Appearance (Clear) Urine pH (4.5-7.5) Ur Specific [place] (1.000-1.030) Urine Protein (Negative) Urine Glucose (UA) (Negative) Urine Ketones (Negative) Urine Blood (Negative) Urine Nitrite (Negative) Urine Bilirubin (Negative) Urine Urobilinogen (Negative) Ur Leukocyte Esterase (Negative) Urine WBC (Auto) (0-5) /hpf Urine RBC (Auto) (0-4) /hpf U Hyaline Cast (Auto) (0-5) /lpf U Epithel Cells (Auto) (0-5) /lpf Urine Bacteria (Auto) (Negative) Salicylates (2.8-20) mg/dl Urine Opiates Screen (Neg) Ur Methadone, Qual (Neg) Acetaminophen (10-30) ug/ml Urine Barbiturates (Neg) Ur Phencyclidine (PCP) (Neg) U Amphetamin/Meth Scrn (Neg) MDMA (Ecstasy) Screen (Neg) U Benzodiazepines Scrn (Neg) Ur Cocaine Metabolite (Neg) U Marijuana (THC) Screen (Neg) Ethyl Alcohol mg/dL < 3.0 (0-3) mg/dl 08/23/20 Range/Units 16:16 WBC (4.8-10.8) K/uL RBC (4.2-5.4) M/uL Hgb (12.0-16.0) g/dL Hct (37-47) % MCV (80-100) fL MCH (25-34) pg MCHC (32-36) g/dL RDW Std Deviation (36.4-46.3) fL RDW Coeff of Keanu (11.5-14.5) % Plt Count (130-400) K/uL MPV (7.4-10.4) fL Immature Gran % (Auto) % Neut % (Auto) % Lymph % (Auto) % Gre[place] % (Auto) % Eos % (Auto) % Baso % (Auto) % Neut # (Auto) (1.4-6.5) K/uL Lymph # (Auto) (1.2-3.4) K/uL Greer # (Auto) (0.11-0.59) K/uL Eos # (Auto) (0-0.5) K/uL Baso # (Auto) (0-0.2) K/uL Immature Gran # (Auto) (0.00-0.02) K/uL Sodium (136-145) mmol/L Potassium (3.5-5.1) mmol/L Chloride (98-107) mmol/L Carbon Dioxide (21-32) mmol/L Anion Gap (3-11) BUN (7-18) mg/dl Creatinine (0.6-1.2) mg/dl Est Cr Clr Drug Dosing ml/min Est GFR ( Amer) Est GFR (Non-Af Amer) BUN/Creatinine Ratio (10-20) Glucose (70-99) mg/dl Calcium (8.5-10.1) mg/dl Total Bilirubin (0.2-1) mg/dl AST (15-37) U/L ALT (12-78) U/L Alkaline Phosphatase (45-117) U/L Total Protein (6.4-8.2) gm/dl Albumin (3.4-5.0) gm/dl Globulin (2.5-4.0) gm/dl Albumin/Globulin Ratio (0.9-2) TSH (0.300-4.500) uIu/ml HCG, Qual Negative (Negative) Urine Color Urine Appearance (Clear) Urine pH (4.5-7.5) Ur Specific [place] (1.000-1.030) Urine Protein (Negative) Urine Glucose (UA) (Negative) Urine Ketones (Negative) Urine Blood (Negative) Urine Nitrite (Negative) Urine Bilirubin (Negative) Urine Urobilinogen (Negative) Ur Leukocyte Esterase (Negative) Urine WBC (Auto) (0-5) /hpf Urine RBC (Auto) (0-4) /hpf U Hyaline Cast (Auto) (0-5) /lpf U Epithel Cells (Auto) (0-5) /lpf Urine Bacteria (Auto) (Negative) Salicylates (2.8-20) mg/dl Urine Opiates Screen (Neg) Ur Methadone, Qual (Neg) Acetaminophen (10-30) ug/ml Urine Barbiturates (Neg) Ur Phencyclidine (PCP) (Neg) U Amphetamin/Meth Scrn (Neg) MDMA (Ecstasy) Screen (Neg) U Benzodiazepines Scrn (Neg) Ur Cocaine Metabolite (Neg) U Marijuana (THC) Screen (Neg) Ethyl Alcohol mg/dL (0-3) mg/dl Discharge Plan Visit Data Chief Complaint: Mental Health Evaluation Stated Complaint: mental health eval ED Provider: Ti Walden Discharge Problem: Depression with suicidal ideation Patient Disposition: Admitted As Inpatient Discharge Instructions Interventions: ED Discharge Assessment Last Done: 12/27/19 19:05
[2019-12-27] MEDS ORDERED: SODIUM CHLORIDE 0.65% NA SOLN 45 ML (OCEAN) PRN (18:21)
[2019-12-27] MEDS ORDERED: BISMUTH SUBSALICYLATE PER ML OMNICELL CHARGE PO PRN (18:21)
[2019-12-27] MEDS ORDERED: ACETAMINOPHEN 325 MG TAB PO PRN (18:21)
[2019-12-27] MEDS ORDERED: MAGNESIUM HYDROXIDE SUSP 30 ML UDC PO PRN (18:21)
[2019-12-27] MEDS ORDERED: ALUMINUM/MAGNESIUM SUSP 30 ML UDC PO PRN (18:21)
[2019-12-27] MEDS ORDERED: NON-FORMULARY MEDICATION (Glucagon Hcl [Glucagon (Hcl) Emergency Kit] 1 MG) IM PRN (18:22)
[2019-12-27] MEDS ORDERED: LORazepam 0.5 MG TAB PO PRN (18:22)
[2019-12-27] MEDS ORDERED: ALBUTEROL HFA 8 GM INHALER INH PRN (18:22)
[2019-12-27] MEDS ORDERED: EPINEPHRINE ADULT AUTO-INJECT 0.3 MG SYR IM PRN (18:22)
--- NOTE | 2019-12-27 18:49 | Progress Note ---
Date of Service December 27, 2019 Subjective admission complicated by Type I DM on insulin pump, celiac, identifies transgend er ([facility]) and took extra Zofran. Dr. Walden's note reviewed, EKG reviewed. Patient to have insulin pump removed, her "pump failure" medications are non- formulary. Reviewed pharmacy note from last admit, covered with basal lantus. Glycemic pharmacy consult. Spoke with pharmacist directly and confirmed orders would be addressed tonight. Nursing staff updated. Pantoprazole substitute for omeprazole (also NF). Holding zofran for now (has gastroparesis). Results & Data ([facility]) Vital Signs (Past 12 Hours) Vital Signs Temp Pulse Resp BP Pulse Ox 12/27/19 15:38 37.1 C 85 16 101/68 96
[2019-12-27] MEDS ORDERED: PHARMACY GLYCEMIC MGMT CONSULT PRN (19:27)
[2019-12-27] MEDS ORDERED: GLUCOSE 10 TABS/TUBE PO PRN (19:45)
[2019-12-27] MEDS ORDERED: GLUCAGON FOR INJ 1 MG VIAL IM PRN (19:45)
[2019-12-27] MEDS ORDERED: GLUCOSE 40% GEL 15 GM TUBE PO PRN (19:45)
[2019-12-27] MEDS ORDERED: CARBOHYDRATES FOR HYPOGLYCEMIA PO PRN (19:45)
[2019-12-27] MEDS ORDERED: DEXTROSE 50% 50 ML SYRINGE IV PRN (19:45)
--- NOTE | 2019-12-27 19:59 | Pharmacy Report ---
Glycemic Control Consultation - Date of Service December 27, 2019 - Scope Scope: Glycemic Pharmacist consulted for glycemic control and to write orders per [facility] inpatient glycemic control protocol. - Objective Weight: 58.8 kg Accuchecks BSG (last 24hrs): 12/27/19 16:16 Glucose 142 H Laboratory Data (last 24hrs): 12/27/19 16:16 Potassium 4.4 Carbon Dioxide 28 Anion Gap 5.0 Creatinine 0.87 Est Cr Clr Drug Dosing 85.4 - Recent Pertinent Medications Outpatient Anti-diabetic Regimen: * Novolog Pump * [id number] = 0.85 u/hr * [id number] = 0.75 u/hr * [id number] = 0.75 u/hr * [id number] = 0.85 u/hr * [id number] = 0.80 u/hr * [id number] = 0.85 u/hr * TOTAL BASAL = 19.45 u/day * CORRECTION = 1 UNIT PER EVERY 50 POINTS OVER 110 * CARB RATIO = 1 UNIT PER 8 GRAMS * A1c = 9.0% (10/13/2019) Risk Factors for Insulin Resistance: * Diet: T1DM - Assessment & Plan Assessment & Plan: ASSESSMENT: * 24 yo F admitted secondary to depression with suicidal ideation. Pharmacy is consulted for inpatient glycemic management. * BSG upon admission was 142 mg/dL. Patient removed her insulin pump in the emergency department and will be managed via basal-bolus insulin for now. * She did have an uncovered meal in the emergency department. * Will utilize previous admission data to help design insulin regimen for this admission. PLAN FOR INPATIENT GLYCEMIC CONTROL: * Basal insulin * Lantus 20 units SQ HS * Bolus insulin * NovoLog per scale ACHS or Q6hrs while NPO * Goal Range: Low 110 mg/dL - High 140 mg/dL * Correction Factor: 45 mg/dL/unit * Nutritional / Prandial insulin per carb ratio of 1 unit per 15 grams CHO consumed * Please note that the plan above was derived based on current level of insulin resistance and hospital stress. These recommendations are appropriate for inpa tient admission only. Plan of care upon discharge will need to be reassessed to avoid potential outpatient hypo/hyperglycemia. Thank you.
[2019-12-27] MEDS: INSULIN ASPART 100 UNITS/ML 3 ML PEN SC SCH ×2 (22:07→22:42)
[2019-12-27] MEDS: INSULIN GLARGINE SOLOSTAR 100 UNITS/ML 3 ML PEN SC SCH (22:11)
[2019-12-27] MEDS: PROPRANOLOL HCL 60 MG LA CAP PO SCH (22:12)
[2019-12-28] MEDS ORDERED: INSULIN ASPART 100 UNITS/ML 3 ML PEN SC SCH ×2 (08:00→12:00)
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
[2019-12-28] MEDS: FLUTICASONE FUROATE 200MCG 14 PUFFS/INHALER INH SCH (08:58)
[2019-12-28] MEDS: PANTOprazole 40 MG TAB PO SCH (08:58)
[2019-12-28] MEDS: INSULIN ASPART 100 UNITS/ML 3 ML PEN SC SCH ×4 (08:59→21:48)
[2019-12-28] MEDS ORDERED: SERTRALINE HCL 100 MG TABLET PO SCH (09:00)
--- NOTE | 2019-12-28 10:09 | Electrocardiogram Report ---
Test Reason : Blood Pressure : / mmHG Vent. Rate : 082 BPM Atrial Rate : 082 BPM P-R Int : 122 ms QRS Dur : 066 ms QT Int : 364 ms P-R-T Axes : 077 080 067 degrees QTc Int : 425 ms Normal sinus rhythm Normal ECG When compared with ECG of 15-NOV-2017 19:03, No significant change was found Confirmed by Jam Joshi ([id number]) on 12/28/2019 10:08:41 AM Referred By: REFERRED SELF Confirmed By:Jam Joshi
[2019-12-28] MEDS ORDERED: SERTRALINE HCL 50 MG TABLET PO ONE (10:37)
[2019-12-28] MEDS ORDERED: PHARMACY GLYCEMIC MGMT CONSULT STA (10:38)
[2019-12-28] MEDS ORDERED: DOCUSATE SODIUM 100 MG CAP PO PRN (10:40)
--- NOTE | 2019-12-28 14:06 | Pharmacy Report ---
Glycemic Control Progress Note - Date of Service December 28, 2019 - Scope Glycemic Pharmacist consulted for glycemic control to write orders per [facility] inpatient glycemic control protocol. - Objective Accuchecks BSG(last 24 hours):: 12/27/19 12/27/19 12/28/19 16:16 21:59 08:28 Glucose 142 H POC Glucose 298 H 68 L* - Recent Pertinent Medications The patient is currently receiving: * Basal insulin: Lantus 20 units every 24 hours * Correctional Insulin: Novolog Correction per scale ACHS Goal Range: Low 110 mg/dL - High 140 mg/dL Correction Factor: 45 mg/dL/unit * Prandial insulin: Per carb ratio of 1 unit per 15 grams CHO consumed - Outpatient Anti-Diabetic Meds Novolog pump - Assessment & Plan ASSESSMENT: * See progress note from 12/27/19 for more background info, in short: * Pt receiving SQ basal bolus insulin regimen for hyperglycemia secondary to ba seline DM (outpatient regimen on hold). * Patient is currently receiving an average of ~25 units of insulin per day (this represents only half a day's admission) * 20 units of basal insulin * 5 units of prandial/correctional insulin * BSGs ranging 142 - 298 mg/dl over the past 24hrs * Changes needed to insulin regimen: * AM Fasting BSG = 68 mg/dl. This is below goal range for patient based on inpatient targets and co-morbidities. Spoke with the patient about their insulin coverage. They are happy with this dose for now. * Post-prandial BSGs have been erratic. Discussed with the patient and they expressed that the pump setting is typically a CR of 8. Will set that for all meals. Loosened CF to reflect a tighter carbohydrate ratio. Loosened goal range as well per discussion with patient. Of note they do have gastroparesis. * Total daily dose = ? units. Will be determined. * Additional notes / comments: Patient has their own Dexcom on -- psychiatrist okay with using this. Patient expressed they did not want to be stuck all the time while here. Agreed to utilize Dexcom since fluid status/dietary intake will not be changing with patient. Will need changed again in 10 days. PLAN FOR INPATIENT GLYCEMIC CONTROL: * Continuing Lantus 20 units SQ HS * Changing correction factor to 50 mg/dl/unit * Changing carb ratio to 1 unit per 8 grams CHO consumed * Changing goal range to Low 80 mg/dL - High 180 mg/dL RECOMMENDATIONS FOR DISCHARGE: * continue insulin pump and follow-up with outpatient staff trainer Thank you.
[2019-12-28] MEDS: INSULIN GLARGINE SOLOSTAR 100 UNITS/ML 3 ML PEN SC SCH (21:50)
[2019-12-28] MEDS: PROPRANOLOL HCL 60 MG LA CAP PO SCH (21:52)
[2019-12-29] MEDS ORDERED: SERTRALINE HCL 50 MG TABLET PO SCH (09:00)
[2019-12-29] MEDS: FLUTICASONE FUROATE 200MCG 14 PUFFS/INHALER INH SCH (09:08)
[2019-12-29] MEDS: PANTOprazole 40 MG TAB PO SCH (09:08)
--- NOTE | 2019-12-29 09:14 | Psychiatric Progress Note ---
Date of Service December 29, 2019 Impression / Recommendations Impression 24-year-old single female with a history of borderline personality disorder, depression, anxiety, and multiple medical problems who was hospitalized 1 month ago for SIB/SI, and re-presents with the same in the context of multiple psychosocial stressors. She is estranged from her family who abandoned her as a child, and has very little support, other than [facility]. She is on an SSRI for depression and anxiety, and we will cautiously titrate the dose while monitoring for exacerbation of her GI symptoms/activation. Although she has a history of a bipolar diagnosis, her sy mptoms are more consistent with borderline personality disorder. Inpatient treatment is medically necessary due to the severity of symptoms and risk for suicide if discharged. (1) Borderline personality disorder: 12/27 -continue inpatient treatment, coordinate care with outpatient clinicians at the [facility] psychological clinic. -DBT. (2) Generalized anxiety disorder: 12/27 -increase sertraline to target mood and anxiety symptoms. Patient is worried about exacerbation of GI issues, so will increase slightly by 25 mg daily and monitor for side effects. -Continue lorazepam and hydroxyzine as needed. -Work on behavioral techniques for managing anxiety. (3) Depression: 12/27 -titrate SSRI as above. (4) Eating disorder: 12/27 -not a focus of treatment here. BMI 22.3, within the normal range. Encourage good nutrition for optimal mental and physical health. (5) Type I diabetes mellitus: 12/27 -consult diabetic pharmacist for assistance with insulin/glucose management. Insulin pump held. Blood sugar twice daily. Diabetic/gluten-free diet. (6) Irritable bowel syndrome with constipation: 12/27 -patient requesting Colace as needed. Continue home dose of linaclotide (7) Migraines: 12/27 -ketorolac and ondansetron as needed. Recently started monthly injection (Emgality) from neurology, which has been helpful. (8) Acid reflux disease: 12/27 -substitute pantoprazole for omeprazole, as nonformulary. (9) Asthma: 12/27 -continue Flovent and albuterol as needed Risk Factors Assessment Male: No : Yes Do You Have Access To A Gun?: No Health Problems: Yes Mental Health Diagnoses: Yes Substance Use Disorders: No Previous Attempt: Yes Previous Attempt; Highly Lethal: No Family History of Suicide: No Previous Psychiatric Hospitalization: No Hopelessness: Yes Smoker: No Protective Factors Assessment Sikhism Beliefs: No : No Responsible for Young Children: No Employed: Yes ([employer]) Stable Relationships: No Supportive Family: No Good Rapport with Provider: Yes Interval History Chief Complaint "[]". Review of Systems Sleep Information Total Hours of Sleep: 5 Sleep Comments: pt on q-15 minute checks Meal Information Percent Meal Consumed - Lunch: 60 Percent Meal Consumed - Dinner: 50 Subjective Subjective Patient was seen & assessed and interval progress reviewed with [treatment team] [nursing and social work] Physical Exam Vital Signs (Past 24 Hours) Last Vital Signs Temp 36.8 C 12/29/19 06:45 Pulse 86 12/29/19 06:46 Resp 18 12/29/19 06:45 BP 82/53 L 12/29/19 06:46 Pulse Ox 98 12/27/19 21:41 Results & Data ([facility]) Current Inpatient Medications Current Inpatient Medications: Current Inpatient Medications Acetaminophen (Acetaminophen 325 Mg Tab) 650 mg PO Q4H PRN PRN Reason: Headache or Minor Fever Stop: 01/26/20 18:20 Al Hydrox/Mg Hydrox/Simethicone (Aluminum/Magnesium Susp 30 Ml Udc) 30 ml PO Q4H PRN PRN Reason: GI Upset Stop: 01/26/20 18:20 Albuterol (Albuterol Hfa 8 Gm Inhaler) 2 puffs INH Q4H PRN PRN Reason: asthma Stop: 01/26/20 18:21 Bismuth Subsalicylate (Bismuth Subsalicylate Per Ml Omnicell Charge) 15 ml PO PRN PRN PRN Reason: Loose Stool Stop: 01/26/20 18:20 Dextrose (Dextrose 50% 50 Ml Syringe) 25 - 50 ml IV UD PRN; Protocol PRN Reason: Hypoglycemia Protocol Stop: 01/26/20 19:44 Docusate Sodium (Docusate Sodium 100 Mg Cap) 100 mg PO BID PRN PRN Reason: constipation Stop: 01/27/20 20:59 Fluticasone Furoate (Fluticasone Furoate 200mcg 14 Puffs/Inhaler) 1 puffs INH DAILY RANDOLPH Stop: 01/27/20 08:59 Last Admin: 12/29/19 09:08 Dose: 1 puffs Documented by: Glucagon (Glucagon For Inj 1 Mg Vial) 1 mg IM UD PRN; Protocol PRN Reason: Hypoglycemia Protocol Stop: 01/26/20 19:44 Glucose (Glucose 40% Gel 15 Gm Tube) 15 - 30 gm PO UD PRN; Protocol PRN Reason: Hypoglycemia Protocol Stop: 01/26/20 19:44 Glucose (Glucose 10 Tabs/Tube) 4 - 8 tabs PO UD PRN; Protocol PRN Reason: Hypoglycemia Protocol Stop: 01/26/20 19:44 Hydroxyzine HCl (Hydroxyzine Hcl 25 Mg Tab) 25 mg PO Q4H PRN PRN Reason: Anxiety Stop: 01/26/20 18:20 Last Admin: 12/28/19 21:58 Dose: 25 mg Documented by: Hydroxyzine HCl (Hydroxyzine Hcl 25 Mg Tab) 25 mg PO HSZ PRN PRN Reason: insomnia Stop: 01/26/20 18:21 Last Admin: 12/27/19 22:26 Dose: 25 mg Documented by: Insulin Aspart (Insulin Aspart 100 Units/Ml 3 Ml Pen) 0 units SC [facility] Stop: 01/27/20 17:14 Last Admin: 12/28/19 21:48 Dose: 1 units Documented by: Insulin Glargine (Insulin Glargine Solostar 100 Units/Ml 3 Ml Pen) 16 units SC [facility]; Protocol Stop: 01/28/20 21:59 Lorazepam (Lorazepam 0.5 Mg Tab) 0.5 mg PO DAILY PRN PRN Reason: Anxiety Stop: 01/26/20 18:21 Magnesium Hydroxide (Magnesium Hydroxide Susp 30 Ml Udc) 30 ml PO DAILY PRN PRN Reason: Constipation Stop: 01/26/20 18:20 Miscellaneous ((Linaclotide [Linzess] 145 Mcg): Order Awaiting Action) 1 ea N/A QS RANDOLPH Stop: 01/27/20 00:00 Last Admin: 12/29/19 09:08 Dose: Not Given Documented by: Miscellaneous (Carbohydrates For Hypoglycemia ) 15 - 30 gm PO UD PRN PRN Reason: Hypoglycemia Treatment Stop: 01/26/20 19:44 Last Admin: 12/29/19 04:42 Dose: 33 gm Documented by: Miscellaneous Information (Pharmacy Glycemic Mgmt Consult) 1 ea N/A UD PRN PRN Reason: Consult Stop: 01/26/20 19:26 Pantoprazole Sodium (Pantoprazole 40 Mg Tab) 40 mg PO DAILY RANDOLPH Stop: 01/27/20 08:59 Last Admin: 12/29/19 09:08 Dose: 40 mg Documented by: Propranolol HCl (Propranolol Hcl 60 Mg [place]) 60 mg PO HS RANDOLPH Stop: 01/26/20 20:59 Last Admin: 12/28/19 21:52 Dose: 60 mg Documented by: Sertraline HCl (Sertraline Hcl 50 Mg Tablet) 125 mg PO DAILY RANDOLPH Stop: 01/28/20 08:59 Last Admin: 12/29/19 09:07 Dose: 125 mg Documented by: Sodium Chloride (Sodium Chloride 0.65% Na Soln 45 Ml ([place])) 1 - 2 sprays NA PRN PRN PRN Reason: Nasal Dryness/Congestion Stop: 01/26/20 18:20 Mental Health & Subst Abuse Tx Psychiatrist Name of Psychiatrist: [facility] - Dr. Sahu Psychiatrist's Psychiatric Appointment Comment: Orlando Manrique [address] [place] [address], [place] [address] Therapist Name of Therapist: [facility] - Cary Levin Therapist's Date of Therapist Appointment: 12/31/19 Time of Therapist Appointment: 3:00 p.m. Therapy Appointment Comment: Orlando Manrique [address] [place] [address], [place] [address] Post Discharge Appointments Primary Care Physician Name Of Family Doctor: Dr. Darian Mercado and Tamara Alejandre PAJero Other #1: Name of Aftercare Appointment: [facility] Phone Number of Aftercare Appointment: Time of Aftercare Appointment: Wednesdays at 3 p.m. Aftercare Appointment Comment: Orlando Manrique [address] [place] [address], [place] [address] Contact Information Discharge Discharge Address: [address] [place] [address], [place] [address] (1) Acid reflux disease Esophagitis presence: esophagitis presence not specified Qualified Code(s): K21.9 - Gastro-esophageal reflux disease without esophagitis (2) Asthma Asthma complication type: uncomplicated Asthma persistence: intermittent Asthma severity: mild Qualified Code(s): J45.20 - Mild intermittent asthma, uncomplicated
[2019-12-29] MEDS: INSULIN ASPART 100 UNITS/ML 3 ML PEN SC SCH ×4 (09:40→21:04)
--- NOTE | 2019-12-29 12:52 | Psychiatric Progress Note ---
Date of Service December 29, 2019 Impression / Recommendations Impression 24-year-old single female with a history of borderline personality disorder, depression, anxiety, and multiple medical problems who was hospitalized 1 month ago for SIB/SI, and re-presents with the same in the context of multiple psychosocial stressors. She is estranged from her family who abandoned her as a child, and has very little support, other than outpatient clinicians at the [facility] psych clinic. She is on an SSRI for depression and anxiety, and we will cautiously titrate the dose while monitoring for exacerbation of her GI symptoms/activation. Although she has a history of a bipolar diagnosis, her sy mptoms are more consistent with borderline personality disorder. Inpatient treatment is medically necessary due to the severity of symptoms and risk for suicide if discharged. (1) Borderline personality disorder: 12/27 -continue inpatient treatment, coordinate care with outpatient clinicians at the [facility] psychological clinic. -DBT. 12/28 - care coordinated w/ OP providers at the [facility] (2) Generalized anxiety disorder: 12/27 -increase sertraline to target mood and anxiety symptoms. Patient is worried about exacerbation of GI issues, so will increase slightly by 25 mg daily and monitor for side effects. -Continue lorazepam and hydroxyzine as needed. -Work on behavioral techniques for managing anxiety. 12/28 - Increase sertraline to 150mg (3) Depression: 12/27 -titrate SSRI as above. (4) Eating disorder: 12/27 -not a focus of treatment here. BMI 22.3, within the normal range. Encourage good nutrition for optimal mental and physical health. (5) Type I diabetes mellitus: 12/27 -consult diabetic pharmacist for assistance with insulin/glucose management. Insulin pump held. Blood sugar twice daily. Diabetic/gluten-free diet. (6) Irritable bowel syndrome with constipation: 12/27 -patient requesting Colace as needed. Continue home dose of linaclotide (7) Migraines: 12/27 -ketorolac and ondansetron as needed. Recently started monthly injection (Emgality) from neurology, which has been helpful. (8) Acid reflux disease: 12/27 -substitute pantoprazole for omeprazole, as nonformulary. (9) Asthma: 12/27 -continue Flovent and albuterol as needed Risk Factors Assessment Male: No : Yes Do You Have Access To A Gun?: No Health Problems: Yes Mental Health Diagnoses: Yes Substance Use Disorders: No Previous Attempt: Yes Previous Attempt; Highly Lethal: No Family History of Suicide: No Previous Psychiatric Hospitalization: No Hopelessness: Yes Smoker: No Protective Factors Assessment Moravian Beliefs: No : No Responsible for Young Children: No Employed: Yes ([employer]) Stable Relationships: No Supportive Family: No Good Rapport with Provider: Yes Interval History Chief Complaint "Better than yesterday." Review of Systems Sleep Information Total Hours of Sleep: 5 Sleep Comments: pt on q-15 minute checks Meal Information Percent Meal Consumed - Breakfast: 100 Percent Meal Consumed - Lunch: 60 Percent Meal Consumed - Dinner: 50 Subjective Subjective Patient was seen & assessed and interval progress reviewed with nursing and social work. Staff report therapist was contacted and provided collateral information: Patient has had thoughts to overdose for years, has always struggled with utilizing healthy coping skills, in therapy with her since September. Treatment is often push/pull, use of SI as a way to feel in control, and wanting intervention from others to show that they care. Has been going to therapy consistently, but missed last [address] Sahu. Therapist suggested giving only a 1/2 week prescription for medications at a time due to suicide risk. On my assessment, patient reports mood has improved from admission, "it helps to talk to others," stating there is "a good patient community" on the [facility] right now. States "it's weird to ask for help and validation, but I'm trying to, although I fear rejection." "It's still very foreign to ask for help, but still feel validated while struggling." She reports difficulty falling asleep after an "intense conversation" with the counselor. She reports SI is less intense, urges to self injure continue, but has not acted on them. Denies side effects to SSRI. Spoke w/ Annette SETHI, PhD who sees her at [facility] to coordinate care and she agreed to continue to prescribe 2 week supply of meds at a time. Physical Exam Psychiatric Orientation: alert and cooperative Apperance: appropriately dressed, appropriately groomed and appeared stated age Eye Contact: good eye contact Speech: normal rate/rhythm/volume of speech Affect: euthymic affect and mood congruent with affect "better" Thought Process: goal directed thought process help seeking/rejecting Thought Content: + cognitive distortions Suicidal Thoughts: + reports suicidal thoughts less intense. Ongoing urges to self injure, has not acted on them Homicidal Thoughts: denies homicidal thoughts Hallucinations: no auditory hallucinations Insight: + limited insight Judgement: + fair judgement Vital Signs (Past 24 Hours) Last Vital Signs Temp 36.8 C 12/29/19 06:45 Pulse 86 12/29/19 06:46 Resp 18 12/29/19 06:45 BP 82/53 L 12/29/19 06:46 Pulse Ox 98 12/27/19 21:41 Results & Data ([facility]) Current Inpatient Medications Current Inpatient Medications: Current Inpatient Medications Acetaminophen (Acetaminophen 325 Mg Tab) 650 mg PO Q4H PRN PRN Reason: Headache or Minor Fever Stop: 01/26/20 18:20 Al Hydrox/Mg Hydrox/Simethicone (Aluminum/Magnesium Susp 30 Ml Udc) 30 ml PO Q4H PRN PRN Reason: GI Upset Stop: 01/26/20 18:20 Albuterol (Albuterol Hfa 8 Gm Inhaler) 2 puffs INH Q4H PRN PRN Reason: asthma Stop: 01/26/20 18:21 Bismuth Subsalicylate (Bismuth Subsalicylate Per Ml Omnicell Charge) 15 ml PO PRN PRN PRN Reason: Loose Stool Stop: 01/26/20 18:20 Dextrose (Dextrose 50% 50 Ml Syringe) 25 - 50 ml IV UD PRN; Protocol PRN Reason: Hypoglycemia Protocol Stop: 01/26/20 19:44 Docusate Sodium (Docusate Sodium 100 Mg Cap) 100 mg PO BID PRN PRN Reason: constipation Stop: 01/27/20 20:59 Fluticasone Furoate (Fluticasone Furoate 200mcg 14 Puffs/Inhaler) 1 puffs INH DAILY RANDOLPH Stop: 01/27/20 08:59 Last Admin: 12/29/19 09:08 Dose: 1 puffs Documented by: Glucagon (Glucagon For Inj 1 Mg Vial) 1 mg IM UD PRN; Protocol PRN Reason: Hypoglycemia Protocol Stop: 01/26/20 19:44 Glucose (Glucose 40% Gel 15 Gm Tube) 15 - 30 gm PO UD PRN; Protocol PRN Reason: Hypoglycemia Protocol Stop: 01/26/20 19:44 Glucose (Glucose 10 Tabs/Tube) 4 - 8 tabs PO UD PRN; Protocol PRN Reason: Hypoglycemia Protocol Stop: 01/26/20 19:44 Hydroxyzine HCl (Hydroxyzine Hcl 25 Mg Tab) 25 mg PO Q4H PRN PRN Reason: Anxiety Stop: 01/26/20 18:20 Last Admin: 12/28/19 21:58 Dose: 25 mg Documented by: Hydroxyzine HCl (Hydroxyzine Hcl 25 Mg Tab) 25 mg PO HSZ PRN PRN Reason: insomnia Stop: 01/26/20 18:21 Last Admin: 12/27/19 22:26 Dose: 25 mg Documented by: Insulin Aspart (Insulin Aspart 100 Units/Ml 3 Ml Pen) 0 units SC ACHS RANDOLPH Stop: 01/27/20 17:14 Last Admin: 12/29/19 09:40 Dose: 6 units Documented by: Insulin Glargine (Insulin Glargine Solostar 100 Units/Ml 3 Ml Pen) 16 units SC HS RANDOLPH; Protocol Stop: 01/28/20 21:59 Lorazepam (Lorazepam 0.5 Mg Tab) 0.5 mg PO DAILY PRN PRN Reason: Anxiety Stop: 01/26/20 18:21 Magnesium Hydroxide (Magnesium Hydroxide Susp 30 Ml Udc) 30 ml PO DAILY PRN PRN Reason: Constipation Stop: 01/26/20 18:20 Miscellaneous ((Linaclotide [Linzess] 145 Mcg): Order Awaiting Action) 1 ea N/A QS RANDOLPH Stop: 01/27/20 00:00 Last Admin: 12/29/19 09:08 Dose: Not Given Documented by: Miscellaneous (Carbohydrates For Hypoglycemia ) 15 - 30 gm PO UD PRN PRN Reason: Hypoglycemia Treatment Stop: 01/26/20 19:44 Last Admin: 12/29/19 04:42 Dose: 33 gm Documented by: Miscellaneous Information (Pharmacy Glycemic Mgmt Consult) 1 ea N/A UD PRN PRN Reason: Consult Stop: 01/26/20 19:26 Pantoprazole Sodium (Pantoprazole 40 Mg Tab) 40 mg PO DAILY RANDOLPH Stop: 01/27/20 08:59 Last Admin: 12/29/19 09:08 Dose: 40 mg Documented by: Propranolol HCl (Propranolol Hcl 60 Mg La [place]) 60 mg PO HS RANDOLPH Stop: 01/26/20 20:59 Last Admin: 12/28/19 21:52 Dose: 60 mg Documented by: Sertraline HCl (Sertraline Hcl 50 Mg Tablet) 150 mg PO DAILY RANDOLPH Stop: 01/29/20 08:59 Sodium Chloride (Sodium Chloride 0.65% Na Soln 45 Ml ([place])) 1 - 2 sprays NA PRN PRN PRN Reason: Nasal Dryness/Congestion Stop: 01/26/20 18:20 Mental Health & Subst Abuse Tx Psychiatrist Name of Psychiatrist: [facility] - Dr. Sahu Psychiatrist's Date of Appointment with Psychiatrist: 01/05/20 Time of Appointment with Psychiatrist: 11:00 a.m. Psychiatric Appointment Comment: Orlando Manrique [address] [place] [address] Therapist Name of Therapist: [facility] - Cary Levni Therapist's Date of Therapist Appointment: 12/31/19 Time of Therapist Appointment: 3:00 p.m. Therapy Appointment Comment: Orlando Manrique [address] [facility], [place] [address] Post Discharge Appointments Primary Care Physician Name Of Family Doctor: Dr. Darian Mercado and Tamara Alejandre PA-C Contact Information Discharge Discharge Address: [address] [place] [address] (1) Acid reflux disease Esophagitis presence: esophagitis presence not specified Qualified Code(s): K21.9 - Gastro-esophageal reflux disease without esophagitis (2) Asthma Asthma complication type: uncomplicated Asthma persistence: intermittent Asthma severity: mild Qualified Code(s): J45.20 - Mild intermittent asthma, uncomplicated
--- NOTE | 2019-12-29 15:18 | Pharmacy Report ---
Pharmacy Glycemic Short Note 2 - Date of Service December 29, 2019 - Glycemic Short OUTPATIENT ANTIDIABETIC REGIMEN: * Novolog pump ASSESSMENT: * Bon received 32 units of insulin yesterday (20 units of basal and 12 units of bolus) * Fasting BSG of 68 mg/dL is below goal. Decrease basal insulin by 20%. * Post prandial BSGs were trending downward yesterday fater tightening carb ratio. Will continue the same for now until additional BSG data is available. May require tighter parameters with breakfast since lunch appears to be the highest BSG of the day. PLAN FOR INPATIENT GLYCEMIC CONTROL: * Basal insulin * Lantus 16 units SQ qHS * Bolus insulin * NovoLog per scale ACHS or Q6hrs while NPO * Goal Range: Low 110 mg/dL - High 140 mg/dL * Correction Factor: 50 mg/dL/unit * Nutritional / Prandial insulin per carb ratio of 1 unit per 8 grams CHO consumed * From 12/28/19: Additional notes / comments: Patient has their own Dexcom on -- psychiatrist okay with using this. Patient expressed they did not want to be stuck all the time while here. Agreed to utilize Dexcom since fluid status/dietary intake will not be changing with patient. Will need changed again in 10 days. RECOMMENDATIONS FOR DISCHARGE: * continue insulin pump and follow-up with outpatient sole layer Thank you.
[2019-12-29] MEDS: PROPRANOLOL HCL 60 MG LA CAP PO SCH (21:02)
[2019-12-29] MEDS ORDERED: INSULIN GLARGINE SOLOSTAR 100 UNITS/ML 3 ML PEN SC SCH (22:00)
[2019-12-30] MEDS ORDERED: INSULIN ASPART 100 UNITS/ML 3 ML PEN SC ONE (05:00)
[2019-12-30] MEDS: PANTOprazole 40 MG TAB PO SCH (09:05)
[2019-12-30] MEDS: FLUTICASONE FUROATE 200MCG 14 PUFFS/INHALER INH SCH (09:05)
[2019-12-30] MEDS: SERTRALINE HCL 50 MG TABLET PO SCH (09:05)
[2019-12-30] MEDS: INSULIN ASPART 100 UNITS/ML 3 ML PEN SC SCH ×7 (09:29→21:47)
--- NOTE | 2019-12-30 13:21 | Psychiatric Progress Note ---
Date of Service December 30, 2019 Impression / Recommendations (1) Borderline personality disorder: 12/27 -continue inpatient treatment, coordinate care with outpatient clinicians at the [facility] psychological clinic. -DBT. 12/28 - care coordinated w/ OP providers at the [facility] 12/29 - Continue to engage in group programming, patient will continue with DBT groups through [facility] - Pt hopeful for discharge tomorrow to allow for prompt follow-up with individual therapist (2) Generalized anxiety disorder: 12/27 -increase sertraline to target mood and anxiety symptoms. Patient is worried about exacerbation of GI issues, so will increase slightly by 25 mg daily and monitor for side effects. -Continue lorazepam and hydroxyzine as needed. -Work on behavioral techniques for managing anxiety. 12/28 - Increase sertraline to 150mg 12/29 - Continue as above, tolerating sertraline - Continue to encourage utilization of healthy coping strategies - Family meeting with aunt via phone (3) Depression: 12/27 -titrate SSRI as above. (4) Eating disorder: 12/27 -not a focus of treatment here. BMI 22.3, within the normal range. Encourage good nutrition for optimal mental and physical health. (5) Type I diabetes mellitus: 12/27 -consult diabetic pharmacist for assistance with insulin/glucose management. Insulin pump held. Blood sugar twice daily. Diabetic/gluten-free diet. (6) Irritable bowel syndrome with constipation: 12/27 -patient requesting Colace as needed. Continue home dose of linaclotide (7) Migraines: 12/27 -ketorolac and ondansetron as needed. Recently started monthly injection (Emgality) from neurology, which has been helpful. (8) Acid reflux disease: 12/27 -substitute pantoprazole for omeprazole, as nonformulary. (9) Asthma: 12/27 -continue Flovent and albuterol as needed Risk Factors Assessment Male: No : Yes Do You Have Access To A Gun?: No Health Problems: Yes Mental Health Diagnoses: Yes Substance Use Disorders: No Previous Attempt: Yes Previous Attempt; Highly Lethal: No Family History of Suicide: No Previous Psychiatric Hospitalization: No Hopelessness: Yes Smoker: No Protective Factors Assessment Cheondoism Beliefs: No : No Responsible for Young Children: No Employed: Yes ([employer]) Stable Relationships: No Supportive Family: No Good Rapport with Provider: Yes Interval History Identifying Information MAYA MEYERS is a 24-year-old biological female who identifies as non-binary and goes by "Yola", preferring "they/them" pronouns, currently lives in [place], has a history of depression, borderline personality disorder, NESHA, unspecified eating disorder, type 1 diabetes, IBS, and other medical conditions, and was admitted on 12/27/19 18:21 on a 201 voluntary commitment for suicidality. Chief Complaint "Um, ok. Group was hard this morning." Review of Systems Notes Constitutional: denied Cardiovascular: denied Respiratory: denied Gastrointestinal: denied Neurological: denied Psychiatric: denies symptoms other than stated above Total of at least 10 systems reviewed, pertinent positives as above and in HPI. Sleep Information Total Hours of Sleep: 4.75 Sleep Comments: pt awoke x1 and had difficulty falling back asleep. pt on q-15 minute checks. pt remained in room most of the night. Meal Information Percent Meal Consumed - Breakfast: 50 Percent Meal Consumed - Lunch: 100 Percent Meal Consumed - Dinner: 100 Subjective Subjective Patient was seen & assessed and interval progress reviewed with treatment team. Staff report the patient has been attending group programming. They continue to make efforts to maintain "personal safety" by utilizing coping strategies to avoid self-harm. Pt agreed to a family meeting with their aunt this morning. Pt was seen today to assess progress since admission. Pt states they are "ok" and reports "group was hard this morning. Initially no one was talking, and then everyone started to open up. I think I opened up about some things and ended up triggering myself." Pt states they continue to struggle with history of past traumas and issues with family dynamics. They struggled today, in particular, with desiring an apology for perceived past hurt, but "I know I'll never get that." We discussed topics of forgiveness and grief, patient benefitting from validation of thoughts and emotions. They reports ongoing self-harm urges, but so far have been able to refrain from acting with use of other coping skills. Pt denies active SI and continues to verbalize readiness for discharge tomorrow in order to attend an individual therapy appointment. Pt reports they are tolerating increased dose of sertraline. They felt family meeting with aunt was "actually really productive" this morning, and felt the most impactful part of the meeting was "my aunt's verbal reassurance that she won't stop loving me." Pt was able to share current coping strategies they are hoping to continue practicing when they are discharged. They denied other needs or concerns today. Physical Exam Psychiatric Orientation: alert, oriented x 3 and cooperative Apperance: appropriately dressed, appropriately groomed and appeared stated age Eye Contact: good eye contact Motor Behavior: steady gait and station and no abnormal motor movements Speech: normal rate/rhythm/volume of speech Affect: + blunted affect and mood congruent with affect Mood: + depressed mood and + anxious mood but mood reported to be closer to baseline Thought Process: goal directed thought process and clear/coherent thought process Thought Content: + cognitive distortions (most consistent with BPD diagnosis, able to process with staff); not paranoid, no hopelessness and no worthlessness Suicidal Thoughts: denies suicidal thoughts, denies suicidal plan and denies suicidal intent Ongoing urges/thoughts to self-harm, but denies intent to act and has been utilizing alternative coping strategies Homicidal Thoughts: denies homicidal thoughts Hallucinations: no auditory hallucinations and no visual hallucinations Cognition: recent memory grossly intact, attention grossly intact and language grossly intact Estimated Intelligence: consistent with education level Insight: + fair insight Judgement: + fair judgement Vital Signs (Past 24 Hours) Last Vital Signs Temp 36.6 C 12/30/19 06:56 Pulse 85 12/30/19 06:57 Resp 18 12/30/19 06:56 BP 85/57 L 12/30/19 06:57 Pulse Ox 98 12/27/19 21:41 Results & Data ([facility]) Current Inpatient Medications Current Inpatient Medications: Current Inpatient Medications Acetaminophen (Acetaminophen 325 Mg Tab) 650 mg PO Q4H PRN PRN Reason: Headache or Minor Fever Stop: 01/26/20 18:20 Al Hydrox/Mg Hydrox/Simethicone (Aluminum/Magnesium Susp 30 Ml Udc) 30 ml PO Q4H PRN PRN Reason: GI Upset Stop: 01/26/20 18:20 Albuterol (Albuterol Hfa 8 Gm Inhaler) 2 puffs INH Q4H PRN PRN Reason: asthma Stop: 01/26/20 18:21 Bismuth Subsalicylate (Bismuth Subsalicylate Per Ml Omnicell Charge) 15 ml PO PRN PRN PRN Reason: Loose Stool Stop: 01/26/20 18:20 Dextrose (Dextrose 50% 50 Ml Syringe) 25 - 50 ml IV UD PRN; Protocol PRN Reason: Hypoglycemia Protocol Stop: 01/26/20 19:44 Docusate Sodium (Docusate Sodium 100 Mg Cap) 100 mg PO BID PRN PRN Reason: constipation Stop: 01/27/20 20:59 Last Admin: 12/29/19 22:04 Dose: 100 mg Documented by: Fluticasone Furoate (Fluticasone Furoate 200mcg 14 Puffs/Inhaler) 1 puffs INH DAILY RANDOLPH Stop: 01/27/20 08:59 Last Admin: 12/30/19 09:05 Dose: 1 puffs Documented by: Glucagon (Glucagon For Inj 1 Mg Vial) 1 mg IM UD PRN; Protocol PRN Reason: Hypoglycemia Protocol Stop: 01/26/20 19:44 Glucose (Glucose 40% Gel 15 Gm Tube) 15 - 30 gm PO UD PRN; Protocol PRN Reason: Hypoglycemia Protocol Stop: 01/26/20 19:44 Glucose (Glucose 10 Tabs/Tube) 4 - 8 tabs PO UD PRN; Protocol PRN Reason: Hypoglycemia Protocol Stop: 01/26/20 19:44 Hydroxyzine HCl (Hydroxyzine Hcl 25 Mg Tab) 25 mg PO Q4H PRN PRN Reason: Anxiety Stop: 01/26/20 18:20 Last Admin: 12/29/19 21:15 Dose: 25 mg Documented by: Hydroxyzine HCl (Hydroxyzine Hcl 25 Mg Tab) 25 mg PO HSZ PRN PRN Reason: insomnia Stop: 01/26/20 18:21 Last Admin: 12/27/19 22:26 Dose: 25 mg Documented by: Insulin Aspart (Insulin Aspart 100 Units/Ml 3 Ml Pen) 0 units SC DAILY@0800 [facility] Stop: 01/29/20 07:59 Last Admin: 12/30/19 09:29 Dose: 8 units Documented by: Insulin Aspart (Insulin Aspart 100 Units/Ml 3 Ml Pen) 0 units SC 1200,1715,2200 RANDOLPH Stop: 01/29/20 11:59 Insulin Glargine (Insulin Glargine Solostar 100 Units/Ml 3 Ml Pen) 16 units SC HS RANDOLPH; Protocol Stop: 01/28/20 21:59 Last Admin: 12/29/19 21:03 Dose: 16 units Documented by: Lorazepam (Lorazepam 0.5 Mg Tab) 0.5 mg PO DAILY PRN PRN Reason: Anxiety Stop: 01/26/20 18:21 Magnesium Hydroxide (Magnesium Hydroxide Susp 30 Ml Udc) 30 ml PO DAILY PRN PRN Reason: Constipation Stop: 01/26/20 18:20 Miscellaneous ((Linaclotide [Linzess] 145 Mcg): Order Awaiting Action) 1 ea N/A QS RANDOLPH Stop: 01/27/20 00:00 Last Admin: 12/30/19 09:28 Dose: Not Given Documented by: Miscellaneous (Carbohydrates For Hypoglycemia ) 15 - 30 gm PO UD PRN PRN Reason: Hypoglycemia Treatment Stop: 01/26/20 19:44 Last Admin: 12/29/19 04:42 Dose: 33 gm Documented by: Miscellaneous Information (Pharmacy Glycemic Mgmt Consult) 1 ea N/A UD PRN PRN Reason: Consult Stop: 01/26/20 19:26 Pantoprazole Sodium (Pantoprazole 40 Mg Tab) 40 mg PO DAILY RANDOLPH Stop: 01/27/20 08:59 Last Admin: 12/30/19 09:05 Dose: 40 mg Documented by: Propranolol HCl (Propranolol Hcl 60 Mg [place]) 60 mg PO HS RNADOLPH Stop: 01/26/20 20:59 Last Admin: 12/29/19 21:02 Dose: 60 mg Documented by: Sertraline HCl (Sertraline Hcl 50 Mg Tablet) 150 mg PO DAILY RANDOLPH Stop: 01/29/20 08:59 Last Admin: 12/30/19 09:05 Dose: 150 mg Documented by: Sodium Chloride (Sodium Chloride 0.65% Na Soln 45 Ml (Nikolai)) 1 - 2 sprays NA PRN PRN PRN Reason: Nasal Dryness/Congestion Stop: 01/26/20 18:20 Mental Health & Subst Abuse Tx Psychiatrist Name of Psychiatrist: [facility] - Dr. Sahu Psychiatrist's Date of Appointment with Psychiatrist: 01/05/20 Time of Appointment with Psychiatrist: 11:00 a.m. Psychiatric Appointment Comment: Orlando Man[address], [address], [place] [address] Therapist Name of Therapist: [facility] - Cary Levin Therapist's Date of Therapist Appointment: 12/31/19 Time of Therapist Appointment: 3:00 p.m. Therapy Appointment Comment: Orlando Manrique, [address] [facility], [place] [address] Post Discharge Appointments Primary Care Physician Name Of Family Doctor: Dr. Darian Mercado and Tamara Alejandre PA-C Other #1: Name of Aftercare Appointment: [facility] D[facility] Groups Phone Number of Aftercare Appointment: Time of Aftercare Appointment: Wednesdays at 3 p.m. Aftercare Appointment Comment: Orlando Manrique, [address] [facility], [place], [place] [address] Contact Information Discharge Discharge Address: [address] [place] [address], [place] [address] (1) Acid reflux disease Esophagitis presence: esophagitis presence not specified Qualified Code(s): K21.9 - Gastro-esophageal reflux disease without esophagitis (2) Asthma Asthma complication type: uncomplicated Asthma persistence: intermittent Asthma severity: mild Qualified Code(s): J45.20 - Mild intermittent asthma, uncomplicated
--- NOTE | 2019-12-30 14:33 | Pharmacy Report ---
Pharmacy Glycemic Short Note 2 - Date of Service December 30, 2019 - Glycemic Short OUTPATIENT ANTIDIABETIC REGIMEN: * Novolog pump ASSESSMENT: 12/29: * Bon received 36 units of insulin yesterday * 16 units of basal * 20 units of bolus * BSGs: 68, 218, 82, 87 mg/dL * Fasting BSG = 237 mg/dL. This is a drastic change compared to previous fasting of 68 mg/dL x 2 days. Perhaps dose reduction yesterday was too significant. I will increase basal insulin. Confirmed patient was not snacking overnight. * Lunch BSG continues to be elevated. I will schedule tighter carb coverage with breakfast to avoid BSG spike with lunch and loosen carb coverage with other meals since her evening BSGs were below goal yesterday. 12/28: * Bon received 32 units of insulin yesterday (20 units of basal and 12 units of bolus) * Fasting BSG of 68 mg/dL is below goal. Decrease basal insulin by 20%. * Post prandial BSGs were trending downward yesterday fater tightening carb ratio. Will continue the same for now until additional BSG data is available. May require tighter parameters with breakfast since lunch appears to be the highest BSG of the day. PLAN FOR INPATIENT GLYCEMIC CONTROL: * Basal insulin * Lantus 18 units SQ qHS * Bolus insulin * NovoLog per scale ACHS or Q6hrs while NPO * Goal Range: Low 110 mg/dL - High 140 mg/dL Breakfast: * Correction Factor: 50 mg/dL/unit * Nutritional / Prandial insulin per carb ratio of 1 unit per 8 grams CHO consumed Lunch/Dinner/HS: * Correction Factor: 50 mg/dL/unit * Nutritional / Prandial insulin per carb ratio of 1 unit per 12 grams CHO consumed * From 12/28/19: Additional notes / comments: Patient has their own Dexcom on -- psychiatrist okay with using this. Patient expressed they did not want to be stuck all the time while here. Agreed to utilize Dexcom since fluid status/dietary intake will not be changing with patient. Will need changed again in 10 days. RECOMMENDATIONS FOR DISCHARGE: * continue insulin pump and follow-up with outpatient transitions rn care coordinator Thank you.
[2019-12-30] MEDS: PROPRANOLOL HCL 60 MG LA CAP PO SCH (20:57)
[2019-12-30] MEDS ORDERED: INSULIN GLARGINE SOLOSTAR 100 UNITS/ML 3 ML PEN SC SCH ×2 (22:00)
[2019-12-31] MEDS: INSULIN ASPART 100 UNITS/ML 3 ML PEN SC SCH ×4 (01:43→13:10)
[2019-12-31] MEDS: FLUTICASONE FUROATE 200MCG 14 PUFFS/INHALER INH SCH (08:43)
[2019-12-31] MEDS: SERTRALINE HCL 50 MG TABLET PO SCH (08:43)
[2019-12-31] MEDS: PANTOprazole 40 MG TAB PO SCH (08:43)
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
== END 2019-12-31 13:40 | disposition home or self-care (01) | DRG 883 ==
LOC: ED 15:35 → 3S 18:21 → SUATTDRO 18:21 → 3S 19:05

== ENCOUNTER 2020-03-04 14:51 | Inpatient (IN) ==
[2020-03-04] MEDS ORDERED: SODIUM CHLORIDE 0.9% 1000ML 1,000 ML IV SCH (15:15)
--- NOTE | 2020-03-04 15:23 | XRay Report ---
XR chest 1V portable HISTORY: weakness COMPARISON: Chest 07/01/2019. FINDINGS: The lungs are clear. Cardiac silhouette is normal in size. No pleural effusions. No pneumot horax. IMPRESSION: No acute process. ACT 112: Negative or not required by law. Electronically signed by: Roger Myrick M.D. 03/04/2020 3:22 PM
--- NOTE | 2020-03-04 15:25 | Emergency Department Note ---
Impression & Plan DKA (diabetic ketoacidoses) ED Provider Note NAME: MAYA MEYERS AGE: 24 SEX: F : 1995 ARRIVES VIA: Walk-In INFORMANT: Patient, ED PROVIDER(S): Edgardo Benedict DO CHIEF COMPLAINT: Hyperglycemia HPI: The patient is a 24-year-old insulin-dependent diabetic who presented to the emergency department with polyuria and polydipsia. The patient states she has a longstanding history of insulin-dependent diabetes. She does use a continuous glucose monitor as well as an insulin pump. She last changed her insulin pump site 3 days ago. She thought this would be the cause of her symptoms so she changed the site this morning. Over the last 24 hours she has noticed polyuria and polydipsia. She denies having any urinary symptoms otherwise. She denies any dysuria. She denies having any hematuria or painful urination. She denies having any vaginal discharge. The patient denies having any cough or fever. She states she did have some nausea and generalized weakness. She called her cordwainer and was referred to the emergency department. She states that she has been monitoring her blood sugar and the last 3 readings have been over 500. She denies having any recent traveling or exposure to COVID-19. The patient did dip her urine at home and was found to have high ketones. She did take nausea medication at home with significant improvement of her nausea symptoms. ROS: See above HPI for pertinent positives & negatives. A total of 10 systems reviewed and were otherwise negative. PAST MEDICAL HISTORY: See Below PAST SURGICAL HISTORY: See Below FAMILY HISTORY: See Below SOCIAL HISTORY: See Below HOME MEDICATIONS: See Below ALLERGIES: See Below VITALS: See Below PHYSICAL EXAMINATION: GENERAL: Patient is awake alert in no acute distress patient is resting comfortably and showing no signs of anxiety EYES: The conjunctivae are clear. The pupils are round and reactive. EARS, NOSE, MOUTH AND THROAT: The nose is without any evidence of any deformity. Mucous members are dry. NECK: The neck is nontender and supple. RESPIRATORY: Normal respiratory effort is noted there is no evidence of wheezing rhonchi or rales CARDIOVASCULAR: Tachycardic rate with regular rhythm was noted. There was no definite murmur. GASTROINTESTINAL: The abdomen is soft. Abdomen is nontender. MUSCULOSKELETAL/EXTREMITIES: There is no evidence of gross deformity full range of motion is noted in the hips and shoulders. SKIN: There is no obvious evidence of any rash. There are no petechiae, pallor or cyanosis noted. NEUROLOGIC: Patient is awake alert and oriented x3 strength is symmetric patellar reflexes are 2+ bilaterally MEDICAL DECISION MAKING: The patient is a 24-year-old female who presented to the emergency department for an evaluation of elevated blood sugar. The patient was found to have elevated blood sugar in the emergency department. She was initially treated with IV fluids. Further evaluation revealed a low pH on venous blood gas as well as elevated blood sugar and significant ketones. The patient was then started on IV insulin. She received significant IV fluid boluses as well as IV insulin drip. Patient was reevaluated multiple times. At this time I do feel she may require further inpatient management to further treat her ongoing DKA. Triage Nursing notes reviewed. Prior medical records reviewed Vital Signs: reviewed and remarkable for hypotension and tachycardia. Differential diagnosis: Infection, dehydration, metabolic abnormality, hypo/hyperglycemia, electrolyte disturbance, anemia, hypoxia, cardiac sources, intracerebral event, toxicologic, neurologic, as well as other pathologies. ER treatment provided: See below Diagnostics interpreted by me: ECG: none Cardiac Monitoring: An order was placed for continuous cardiac monitoring. The monitor shows a rate of 110 bpm with sinus tachycardia rhythm. Laboratory studies: As stated above and show below. Imaging studies: See below Consultation(s): 7022: I discussed this case with Dr. Gould. He will evaluate the patient in the emergency department for further management and disposition. ED COURSE: Procedures: none PDMP:reviewed and no issues Critical Care: I have personally spent greater than 45 minutes of critical care time in the direct management of this patient. This includes bedside care, interpretation of diagnostic studies, and testing, discussion with consultants, patient, and family members, and other required patient management activities. This 45 minutes is in excess of all separately billable procedures. Past Med/Surg History Medical History (Updated 03/04/20 @ 17:01 by Edgardo Benedict DO) Acid reflux disease (~2013) Allergic rhinitis Asthma well controlled with daily inhaler Borderline personality disorder follows with therapy & psychiatrist Celiac disease Chronic joint pain Depression Diabetic gastroparesis associated with type 1 diabetes mellitus (~2016) Generalized anxiety disorder Gilbert's syndrome Irritable bowel syndrome with constipation Lumbar radiculopathy Migraines Osteopenia Osteoporosis Sinus tachycardia reason propranolol Type I diabetes mellitus (~2013) Followed by Endocrinology Surgical History History of cataract surgery bilateral History of colonoscopy History of esophagogastroduodenoscopy (EGD) History of strabismus surgery right Family History Mother Alcohol abuse Adult celiac disease Osteoporosis Seizure Celiac disease Father Skin cancer squamous cell Drug abuse Alcohol abuse Anxiety Seizure Grandfather Alcohol abuse Uncle Drug abuse Alcohol abuse Brother Drug abuse Unknown Cancer Grandmother Diabetes Colorectal cancer Celiac disease Grandmother Type 1 diabetes Other Bipolar 1 disorder No family history of adverse response to anesthesia Denies family history of Ovarian cancer Prostate cancer Myocardial infarction Breast cancer Lung cancer Hypertension Social History Smoking Status: Former smoker Age Started Using Tobacco: 18; Age Quit Using Tobacco: 20; Cigarettes Per Day: 1 per month; Second Hand Exposure: Yes; Hx Alcohol Use: Yes Alcohol type: beer and wine Hx Substance Use: Yes Preferred Language: Chinese Communication Ability: Effective Hearing Ability: Normal 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 Beliefs That Will Affect Care: None marital status: Single Current Living Situation: Alone Current Living Situation Comment: friend current occupational status: employed current occupation: [employer] Feels Safe at Home: Yes Childhood Exposure to Second-Hand Smoke: Yes caffeine: Yes Dental Care, Regularly: Yes Physical Activity Frequency: 3-4 Times per Week Physical Activity Frequency Comment: walks Seatbelt Use: always Sunscreen Use: Yes (when in the sun for an extended time) Assistive Devices: Glasses Allergies Allergies Allergy/AdvReac Type Severity Reaction Status Date / Time gluten Allergy Severe CELIAC'S Verified 03/04/20 15:42 DISEASE Penicillins Allergy Severe ANAPHYLAXIS Verified 03/04/20 15:42 shellfish derived Allergy Severe ANAPHYLAXIS Verified 03/04/20 15:42 apple Allergy Intermediate THROAT Verified 03/04/20 15:42 SWELLS house dust Allergy Intermediate Hives Verified 03/04/20 15:42 oxcarbazepine Allergy Intermediate Rash,hives Verified 03/04/20 15:42 and itchiness. milk Allergy Unknown SENSITIVITY Verified 03/04/20 15:42 lactose AdvReac Intermediate Gatrointestinal Verified 03/04/20 15:42 Upset sumatriptan [From Imitrex] AdvReac Intermediate INTENSIFIES Verified 03/04/20 15:42 HEADACHE Home Meds Home Medications Medication Instructions Recorded Confirmed lorazepam 0.5 mg tablet 0.5 mg PO DAILY PRN 01/21/18 03/04/20 insulin glargine 100 unit/mL (3 19 units SQ DAILY PRN ml 11/26/18 03/04/20 mL) subcutaneous pen Flovent HFA 1 puff INHALATION QAM 04/25/19 03/04/20 albuterol sulfate 2 puff INHALATION Q4H PRN 12/27/19 03/04/20 epinephrine 0.3 mg IM DIRECTED PRN 12/27/19 03/04/20 insulin pump controller 12/27/19 03/04/20 Linzess 145 mcg PO HS PRN 02/19/20 03/04/20 hydroxyzine HCl 25 mg PO HS 02/19/20 03/04/20 omeprazole 40 mg PO QAM 02/19/20 03/04/20 sertraline 150 mg PO QAM 02/19/20 03/04/20 vitamin E 400 unit PO BID 02/19/20 03/04/20 Previous Rx's Medication Instructions Recorded acetone (urine) test #100 ea 03/23/19 insulin aspart U-100 100 unit/mL See Rx Instructions SQ DAILY #30 ml 03/23/19 subcutaneous solution inhalational spacing device #1 ea 03/27/19 glucagon HCl 1 mg solution for 1 mg IM Q20M PRN #1 ea 07/06/19 injection propranolol 60 mg capsule,24 60 mg PO HS #90 cap 08/05/19 hr,extended release ketorolac 10 mg tablet 10 mg PO Q6H PRN #12 tab 12/14/19 ondansetron HCl 8 mg tablet 8 mg PO DAILY PRN #30 tab 12/14/19 galcanezumab-gnlm 120 mg/mL 120 mg SQ MONTHLY #1 ml 01/13/20 subcutaneous pen injector Results & Data (ED) Vital Signs Vital Signs - 24 hr 03/04/20 15:00 03/04/20 15:34 03/04/20 16:29 Temperature 36.8 C Temperature Source Oral Oral Pulse Rate 107 H Pulse Rhythm Regular Pulse Strength Normal Respiratory Rate 20 Respiratory Effort / Characteristics Non-Labored Spontaneous Respiratory Depth Normal Respiratory Pattern Regular Blood Pressure 90/59 L Blood Pressure Mean 69 Blood Pressure Position Sitting Pulse Oximetry 96 Oxygen Delivery Method Room Air Room Air Sepsis Recent Fever Within 48 Hours No Sepsis New/Unexplained Change in Mental Status N/A Sepsis Action Taken by Nursing No Action Required Home Medications Current Medication List: was personally reviewed by me Laboratory Data Attestation: I reviewed the patient's lab results. Result diagrams: 03/04/20 15:45 03/04/20 15:45 Lab Results 03/04/20 03/04/20 03/04/20 Range/Units 14:57 15:45 15:45 WBC 10.51 (4.8-10.8) K/uL RBC 4.50 (4.2-5.4) M/uL Hgb 13.9 (12.0-16.0) g/dL Hct 39.7 (37-47) % MCV 88.2 (80-100) fL MCH 30.9 (25-34) pg MCHC 35.0 (32-36) g/dL RDW Std Deviation 37.9 (36.4-46.3) fL RDW Coeff of Keanu 11.8 (11.5-14.5) % Plt Count 321 (130-400) K/uL MPV 12.1 H (7.4-10.4) fL Immature Gran % (Auto) 0.2 % Neut % (Auto) 80.8 % Lymph % (Auto) 11.7 % Camp % (Auto) 7.0 % Eos % (Auto) 0.0 % Baso % (Auto) 0.3 % Neut # (Auto) 8.49 H (1.4-6.5) K/uL Lymph # (Auto) 1.23 (1.2-3.4) K/uL Camp # (Auto) 0.74 H (0.11-0.59) K/uL Eos # (Auto) 0.00 (0-0.5) K/uL Baso # (Auto) 0.03 (0-0.2) K/uL Immature Gran # (Auto) 0.02 (0.00-0.02) K/uL VBG pH (7.36-7.41) VBG pCO2 (38-50) mmHg VBG pO2 mmHg VBG HCO3 mmol/L VBG O2 Saturation % VBG Base Excess mEq/L Barometric Pressure mm/Hg Sodium 127 L (136-145) mmol/L Potassium 4.9 (3.5-5.1) mmol/L Chloride 97 L (98-107) mmol/L Carbon Dioxide 16 L (21-32) mmol/L Anion Gap 14.0 H (3-11) BUN 19 H (7-18) mg/dl Creatinine 1.04 (0.6-1.2) mg/dl Est Cr Clr Drug Dosing 71.4 ml/min Est GFR ( Amer) 86.5 Est GFR (Non-Af Amer) 74.6 BUN/Creatinine Ratio 18.3 (10-20) Glucose 485 H* (70-99) mg/dl POC Glucose 504 H* (70-99) mg/dl Calcium 9.4 (8.5-10.1) mg/dl Total Bilirubin 1.7 H (0.2-1) mg/dl AST 16 (15-37) U/L ALT 16 (12-78) U/L Alkaline Phosphatase 108 (45-117) U/L Total Protein 8.5 H (6.4-8.2) gm/dl Albumin 4.2 (3.4-5.0) gm/dl Globulin 4.2 H (2.5-4.0) gm/dl Albumin/Globulin Ratio 1.0 (0.9-2) Beta-Hydroxybutyric Acd 44.56 H (0.2-2.81) mg/dl TSH 0.416 (0.300-4.500) uIu/ml HCG, Qual (Negative) Specimen Hemolysis 03/04/20 03/04/20 03/04/20 Range/Units 15:45 15:45 17:06 WBC (4.8-10.8) K/uL RBC (4.2-5.4) M/uL Hgb (12.0-16.0) g/dL Hct (37-47) % MCV (80-100) fL MCH (25-34) pg MCHC (32-36) g/dL RDW Std Deviation (36.4-46.3) fL RDW Coeff of Keanu (11.5-14.5) % Plt Count (130-400) K/uL MPV (7.4-10.4) fL Immature Gran % (Auto) % Neut % (Auto) % Lymph % (Auto) % Camp % (Auto) % Eos % (Auto) % Baso % (Auto) % Neut # (Auto) (1.4-6.5) K/uL Lymph # (Auto) (1.2-3.4) K/uL Camp # (Auto) (0.11-0.59) K/uL Eos # (Auto) (0-0.5) K/uL Baso # (Auto) (0-0.2) K/uL Immature Gran # (Auto) (0.00-0.02) K/uL VBG pH 7.26 L (7.36-7.41) VBG pCO2 38 (38-50) mmHg VBG pO2 40 mmHg VBG HCO3 17 mmol/L VBG O2 Saturation 68.7 % VBG Base Excess -9.5 mEq/L Barometric Pressure 736.3 mm/Hg Sodium (136-145) mmol/L Potassium (3.5-5.1) mmol/L Chloride (98-107) mmol/L Carbon Dioxide (21-32) mmol/L Anion Gap (3-11) BUN (7-18) mg/dl Creatinine (0.6-1.2) mg/dl Est Cr Clr Drug Dosing ml/min Est GFR ( Amer) Est GFR (Non-Af Amer) BUN/Creatinine Ratio (10-20) Glucose (70-99) mg/dl POC Glucose 429 H* (70-99) mg/dl Calcium (8.5-10.1) mg/dl Total Bilirubin (0.2-1) mg/dl AST (15-37) U/L ALT (12-78) U/L Alkaline Phosphatase (45-117) U/L Total Protein (6.4-8.2) gm/dl Albumin (3.4-5.0) gm/dl Globulin (2.5-4.0) gm/dl Albumin/Globulin Ratio (0.9-2) Beta-Hydroxybutyric Acd (0.2-2.81) mg/dl TSH (0.300-4.500) uIu/ml HCG, Qual Negative (Negative) Specimen Hemolysis Administered Medications Discontinued Medications Sodium Chloride (Nss 1000ml) 1,000 mls @ 999 mls/hr IV .Q1H1M RANDOLPH Stop: 03/04/20 16:15 Last Admin: 03/04/20 16:28 Dose: 999 mls/hr Documented by: [id number] Imaging Data Radiologist's Impression: Patient: MAYA MEYERS Admit Date: 03/04/20 MR#: [id number] Address1: [address] [place] [address] Acct ID:[id number] Address2: Date: 1995 [facility] Zip: [place] [address] Age: 24 Location: ED Sex: F Room/Bed: Att Phy: Diagnosis: HYPERGLYCEMIA,NAUSEA,LARGE AMOUNT OF KEYTONES Alyssa Phy: Darian Murray DO Service Date: 03/04/20 Fam Phy: Interpreting Phy: Roger Myrick MD Admit Phy: Ordering Phy: Edgardo Benedict DO cc: ~ XR chest 1V portable HISTORY: weakness COMPARISON: Chest 07/01/2019. FINDINGS: The lungs are clear. Cardiac silhouette is normal in size. No pleural effusions. No pneumothorax. IMPRESSION: No acute process. ACT 112: Negative or not required by law. Electronically signed by: Roger Myrick M.D. 03/04/2020 3:22 PM Dictated: 03/04/20 1521 Transcribed: 03/04/20 1521 Blood Pressure Blood Pressure Findings: Low blood pressure Discharge Plan Visit Data Chief Complaint: Hyperglycemia Stated Complaint: HYPERGLYCEMIA,NAUSEA,LARGE AMOUNT OF KEYTONES ED Provider: Edgardo Benedict Discharge Problem: DKA (diabetic ketoacidoses) Patient Disposition: Being Evaluated by Hospitalist Condition: Good Forms Stand Alone Forms: My [facility] Prescriptions Prescriptions: No Action lorazepam [Ativan] 0.5 mg tablet 0.5 mg PO DAILY PRN (Reason: Anxiety) RF: 0 Basaglar KwikPen U-100 Insulin 100 unit/mL (3 mL) insulin pen 19 units SQ DAILY PRN (Reason: Novolog Pump Failure) RF: 0 Novolog U-100 Insulin aspart 100 unit/mL solution See Rx Instructions SQ DAILY Qty: 30 RF: 5 (DME) Ketostix strip See Rx Instructions .ROUTE .MEDSUPPLY Qty: 100 RF: 2 propranolol 60 mg capsule,extended release 24 hr 60 mg PO HS Qty: 90 RF: 3 Emgality Pen 120 mg/mL pen injector 120 mg SQ MONTHLY Qty: 1 RF: 5 Glucagon (HCl) Emergency Kit 1 mg recon soln 1 mg IM Q20M PRN (Reason: hypoglycemia) Qty: 1 RF: 3 (DME) Aerochamber MV spacer See Rx Instructions .ROUTE .MEDSUPPLY Qty: 1 RF: 0 ketorolac 10 mg tablet 10 mg PO Q6H PRN (Reason: pain) Qty: 12 RF: 2 ondansetron HCl [Zofran] 8 mg tablet 8 mg PO DAILY PRN (Reason: Nausea) Qty: 30 RF: 2 omeprazole 40 mg capsule,delayed release(DR/EC) 40 mg PO QAM RF: 0 hydroxyzine HCl 25 mg tablet 25 mg PO HS RF: 0 sertraline 50 mg tablet 150 mg PO QAM RF: 0 Linzess 145 mcg capsule 145 mcg PO HS PRN (Reason: Gastrointestinal Spasms Or Cramping) RF: 0 vitamin E 400 unit Capsule 400 unit PO BID RF: 0 Flovent HFA 220 mcg/actuation HFA aerosol inhaler 1 puff INHALATION QAM RF: 0 albuterol sulfate 90 mcg/actuation Hfa Aerosol Inhaler 2 puff INHALATION Q4H PRN (Reason: asthma) RF: 0 epinephrine 0.3 mg/0.3 mL Auto-Injector 0.3 mg IM DIRECTED PRN (Reason: Anaphylaxis) RF: 0 (DME) insulin pump controller Misc MISCELLANEOUS RF: 0 Referrals Referrals: Darian Murray DO [Primary Care Provider] - Discharge Problem: DKA (diabetic ketoacidoses) Qualifiers: Diabetes mellitus type: type 1 Diabetes mellitus complication detail: without coma Qualified Code(s): E10.10 - Type 1 diabetes mellitus with ketoacidosis wi thout coma
[2020-03-04 16:04] LABS: Basophils # (auto) 0.03 K/uL (0-0.2); Basophils % (auto) 0.3 %; Hematocrit (blood only) 39.7 % (37-47); Hemoglobin 13.9 g/dL (12.0-16.0); Immature Granulocytes # (auto) 0.02 K/uL (0.00-0.02); Immature Granulocytes % (auto) 0.2 %; Lymphocytes # (auto) 1.23 K/uL (1.2-3.4); Lymphocytes % (auto) 11.7 %; Mean Corpuscular Hemoglobin 30.9 pg (25-34); Mean Corpuscular Volume 88.2 fL (80-100); Mean Platelet Volume 12.1 fL (7.4-10.4); Monocytes # (auto) 0.74 K/uL (0.11-0.59); Neutrophils # (auto) 8.49 K/uL (1.4-6.5); Neutrophils % (auto) 80.8 %; Platelet Count 321 K/uL (130-400); RDW Coefficient of Variation 11.8 % (11.5-14.5); RDW Standard Deviation 37.9 fL (36.4-46.3); White Blood Count 10.51 K/uL (4.8-10.8)
[2020-03-04 16:14] LABS: Base Excess VBG -9.5 mEq/L; Oxygen Saturation VBG 68.7 %; pH VBG 7.26 (7.36-7.41)
[2020-03-04 16:28] LABS: Pregnancy Test, Serum Negative (Negative)
[2020-03-04] MEDS ORDERED: SODIUM CHLORIDE 0.9% 1000ML 1,000 ML IV ONE ×2 (16:29→16:49)
[2020-03-04 16:46] LABS: Albumin Level 4.2 gm/dl (3.4-5.0); BUN Creatinine Ratio 18.3 (10-20); Bilirubin,Total 1.7 mg/dl (0.2-1); Calcium 9.4 mg/dl (8.5-10.1); Creatinine Clr Calc Pharmacy 71.4 ml/min; Est GFR (African American) 86.5; Est GFR (Non-African American) 74.6; Globulin 4.2 gm/dl (2.5-4.0); Potassium 4.9 mmol/L (3.5-5.1); Thyroid Stimulating Hormone 0.416 uIu/ml (0.300-4.500); Total Protein 8.5 gm/dl (6.4-8.2)
[2020-03-04 16:48] LABS: Beta-Hydroxybutyrate 44.56 mg/dl (0.2-2.81)
[2020-03-04] MEDS ORDERED: GLUCAGON FOR INJ 1 MG VIAL SQ PRN (16:49)
[2020-03-04] MEDS ORDERED: DEXTROSE 50% 50 ML SYRINGE IV PRN (16:49)
[2020-03-04] MEDS ORDERED: DKA GOAL RANGE 150-250 mg/dl ONE ×2 (16:49→20:33)
[2020-03-04] MEDS ORDERED: GLUCOSE 40% GEL 15 GM TUBE PO PRN (16:49)
[2020-03-04] MEDS ORDERED: ED DKA INSULIN DRIP ONE (16:49)
[2020-03-04] MEDS ORDERED: GLUCOSE 10 TABS/TUBE PO PRN (16:49)
[2020-03-04] MEDS ORDERED: CARBOHYDRATES FOR HYPOGLYCEMIA PO PRN (16:49)
[2020-03-04] MEDS ORDERED: NovoLIN-R BOLUS FROM BAG IV ONE (17:00)
[2020-03-04] MEDS: INSULIN REGULAR 250 UNITS in SODIUM CHLORIDE 0.9% 247.5 ML IV SCH (17:52)
[2020-03-04] MEDS ORDERED: FAMOTIDINE 20MG IV PUSH 20 MG/5 ML SYR IV STA (18:40)
[2020-03-04] MEDS ORDERED: ONDANSETRON 8MG OD TAB PO PRN (20:33)
[2020-03-04] MEDS ORDERED: NON-FORMULARY MEDICATION (Galcanezumab-Gnlm [Emgality Pen] 120 mg/mL pen injector) SQ SCH (20:33)
[2020-03-04] MEDS ORDERED: KETOROLAC TROMETHAMINE 10 MG TABLET PO PRN (20:33)
[2020-03-04] MEDS ORDERED: LORazepam 0.5 MG TAB PO PRN (20:33)
[2020-03-04] MEDS ORDERED: ACETAMINOPHEN 325 MG TAB PO PRN (20:33)
[2020-03-04] MEDS ORDERED: NON-FORMULARY MEDICATION (Glucagon Hcl [Glucagon (Hcl) Emergency Kit] 1 mg recon soln) IM PRN (20:33)
[2020-03-04] MEDS ORDERED: ALBUTEROL HFA 8 GM INHALER INH PRN (20:33)
[2020-03-04] MEDS ORDERED: MAGNESIUM HYDROXIDE SUSP 30 ML UDC PO PRN (20:33)
[2020-03-04] MEDS ORDERED: NORMOSOL-R 1,000 ML IV SCH (20:33)
[2020-03-04] MEDS ORDERED: DC ALL PREVIOUSLY ORDERED DIABETES MEDS ONE (20:33)
[2020-03-04] MEDS ORDERED: NON-FORMULARY MEDICATION (Inhalational Spacing Device [Aerochamber Mv] spacer) SCH (20:33)
[2020-03-04] MEDS ORDERED: EPINEPHrine ADULT AUTO-INJECT 0.3 MG SYR IM PRN (20:33)
[2020-03-04] MEDS ORDERED: PENDING D5 1/2NS+20mEq KCL IVF SCH (20:33)
[2020-03-04] MEDS ORDERED: [UNRECOGNIZED DRUG - OTHER] SCH (20:33)
[2020-03-04] MEDS ORDERED: ALUMINUM/MAGNESIUM SUSP 30 ML UDC PO PRN (20:33)
[2020-03-04] MEDS ORDERED: PENDING 1/2NSS+20mEq KCL IVF SCH (20:33)
[2020-03-04] MEDS ORDERED: INSULIN REGULAR 250 UNITS in SODIUM CHLORIDE 0.9% 247.5 ML IV SCH (20:33)
[2020-03-04] MEDS ORDERED: ONDANSETRON INJ 2 MG/ML 2 ML VIAL IV PRN (20:33)
[2020-03-04] MEDS ORDERED: INFLUENZA ADMINISTRATION CHARGE ONE (20:43)
[2020-03-04] MEDS ORDERED: INFLUENZA VIRUS QUAD VACCINE 0.5 ML SYR IM ONE (20:43)
--- NOTE | 2020-03-04 20:49 | History & Physical Report ---
Date of Service March 04, 2020 Assessment & Plan (1) DKA (diabetic ketoacidoses): no clear inciting factor; fortunately came in fairly quickly. -fluids, IV insulin, follow closel -serial exams for any infectious triggers although none noted at this time (2) Type I diabetes mellitus: as above, once off gtt will transition back to pump check A1c (3) Depression: home meds (4) Acid reflux disease: with additional nausea at this time PPI, H2, zofran prn (5) DVT prophylaxis: ambulation (6) Discharge planning issues: admit to telemetry Admission and Anticipated Discharge Date Admission Date: March 04, 2020 History of Present Illness Chief Complaint: DKA Primary Care Provider: Darian Murray, DO doesnt' really clearly note a trigger - not feeling ill no fevers no urinary sx no cellulitis no pneumonia sx - but did note that she maybe had changed diet some in the last week after mouth ulcer - but HPI most acutely starts early this AM - she was noting an onset of polyuria and dry mouth that persisted and worsened as the day progressed. checked sugar and saw ~500 range and then had instructions on how to try to correct w insulin and oral rehydration - but noted that she was still feeling worse ongoing polyuria and sugars not improving - pl us some GI distress was preventing her from being able to drink enough fluids to even try to keep up - so came to ER - found to be in DKA Allergies Allergy/AdvReac Type Severity Reaction Status Date / Time gluten Allergy Severe CELIAC'S Verified 03/04/20 15:42 DISEASE Penicillins Allergy Severe ANAPHYLAXIS Verified 03/04/20 15:42 shellfish derived Allergy Severe ANAPHYLAXIS Verified 03/04/20 15:42 apple Allergy Intermediate THROAT Verified 03/04/20 15:42 SWELLS house dust Allergy Intermediate Hives Verified 03/04/20 15:42 oxcarbazepine Allergy Intermediate Rash,hives Verified 03/04/20 15:42 and itchiness. milk Allergy Unknown SENSITIVITY Verified 03/04/20 15:42 lactose AdvReac Intermediate Gatrointestinal Verified 03/04/20 15:42 Upset sumatriptan [From Imitrex] AdvReac Intermediate INTENSIFIES Verified 03/04/20 15:42 HEADACHE Home Medications Home Medications Medication Instructions Recorded Confirmed Type lorazepam 0.5 mg tablet 0.5 mg PO DAILY PRN 01/21/18 03/04/20 History insulin glargine 100 unit/mL (3 19 units SQ DAILY PRN ml 11/26/18 03/04/20 History mL) subcutaneous pen acetone (urine) test #100 ea 03/23/19 03/04/20 Rx insulin aspart U-100 100 unit/mL See Rx Instructions SQ DAILY #30 ml 03/23/19 03/04/20 Rx subcutaneous solution inhalational spacing device #1 ea 03/27/19 03/04/20 Rx Flovent HFA 1 puff INHALATION QAM 04/25/19 03/04/20 History glucagon HCl 1 mg solution for 1 mg IM Q20M PRN #1 ea 07/06/19 03/04/20 Rx injection propranolol 60 mg capsule,24 60 mg PO HS #90 cap 08/05/19 03/04/20 Rx hr,extended release ketorolac 10 mg tablet 10 mg PO Q6H PRN #12 tab 12/14/19 03/04/20 Rx ondansetron HCl 8 mg tablet 8 mg PO DAILY PRN #30 tab 12/14/19 03/04/20 Rx albuterol sulfate 2 puff INHALATION Q4H PRN 12/27/19 03/04/20 History epinephrine 0.3 mg IM DIRECTED PRN 12/27/19 03/04/20 History insulin pump controller 12/27/19 03/04/20 History galcanezumab-gnlm 120 mg/mL 120 mg SQ MONTHLY #1 ml 01/13/20 03/04/20 Rx subcutaneous pen injector Linzess 145 mcg PO HS PRN 02/19/20 03/04/20 History hydroxyzine HCl 25 mg PO HS 02/19/20 03/04/20 History omeprazole 40 mg PO QAM 02/19/20 03/04/20 History sertraline 150 mg PO QAM 02/19/20 03/04/20 History vitamin E 400 unit PO BID 02/19/20 03/04/20 History Past Med/Surg History Medical History (Updated 03/04/20 @ 20:47 by Mikhail Middleton DO) Acid reflux disease (~2013) Allergic rhinitis Asthma well controlled with daily inhaler Borderline personality disorder follows with therapy & psychiatrist Celiac disease Chronic joint pain Depression Diabetic gastroparesis associated with type 1 diabetes mellitus (~2016) Generalized anxiety disorder Jossuebert's syndrome Irritable bowel syndrome with constipation Lumbar radiculopathy Migraines Osteopenia Osteoporosis Sinus tachycardia reason propranolol Type I diabetes mellitus (~2013) Followed by Endocrinology Surgical History History of cataract surgery bilateral History of colonoscopy History of esophagogastroduodenoscopy (EGD) History of strabismus surgery right Family History Mother Alcohol abuse Adult celiac disease Osteoporosis Seizure Celiac disease Father Skin cancer squamous cell Drug abuse Alcohol abuse Anxiety Seizure Grandfather Alcohol abuse Uncle Drug abuse Alcohol abuse Brother Drug abuse Unknown Cancer Grandmother Diabetes Colorectal cancer Celiac disease Grandmother Type 1 diabetes Other Bipolar 1 disorder No family history of adverse response to anesthesia Denies family history of Ovarian cancer Prostate cancer Myocardial infarction Breast cancer Lung cancer Hypertension Social History Smoking Status: Former smoker Age Started Using Tobacco: 18; Age Quit Using Tobacco: 20; Cigarettes Per Day: 1 per month; Second Hand Exposure: Yes; Hx Alcohol Use: Yes Alcohol type: beer and wine Hx Substance Use: No Preferred Language: Bengali Communication Ability: Effective Hearing Ability: Normal Client Relation Specialist Required: Yes Beliefs That Will Affect Care: None marital status: Single Current Living Situation: Alone Current Living Situation Comment: friend current occupational status: employed current occupation: [employer] Other Information That Helps Us Care for You: No Feels Safe at Home: Yes Safety Concerns: Feels Safe At This Time Childhood Exposure to Second-Hand Smoke: Yes caffeine: Yes Dental Care, Regularly: Yes Physical Activity Frequency: 3-4 Times per Week Physical Activity Frequency Comment: walks Seatbelt Use: always Sunscreen Use: Yes (when in the sun for an extended time) Assistive Devices: Glasses Review of Systems Review of Systems: All systems reviewed & are unremarkable except as noted in HPI & below Physical Exam Physical Exam: gen aaox3 pleasant nad heent nc at mm sl dry neck full ROM cardio reg no r/m/g lungs cta b/l no r/r/w good effort no accessory muscles no conversational dyspn ea abd soft nd nt no masses or organomegaly ext no c/c/e no calf tenderness neuro cn2-12 grossly intact gross motor/sensory intact no noted deficits skin no rashes no erythema no pallor no icterus mental good recent and remote recall normal mood and affect good judgement and insight Results & Data Results & Data ([facility]) Vital Signs (Past 12 Hours) Vital Signs Temp Pulse Resp BP Pulse Ox 03/04/20 19:01 96 H 22 03/04/20 19:00 89 23 81/46 L 03/04/20 18:30 93 H 20 92/51 L 03/04/20 18:01 99 H 19 03/04/20 18:00 93 H 22 95/54 L 03/04/20 17:53 95 H 21 90/51 L 03/04/20 17:31 86 26 H 03/04/20 17:30 84 22 80/54 L 03/04/20 17:01 81 23 03/04/20 17:00 79 24 99/57 L 03/04/20 16:31 89 20 03/04/20 16:30 86 23 94/59 L 03/04/20 16:20 81 26 H 03/04/20 16:17 82 27 H 97/64 L 03/04/20 15:00 98.2 F 107 H 20 90/59 L 96 PG Care Time/CCT Total # of Minutes Spent Total Time Spent with Patient: Total time spent is greater than 50% in coordination of care (as documented) at patient's floor/unit and/or counseling patient: Coding Level of Care Code 21327 Initial Inpt Care Lvl 3 Diagnoses DKA (diabetic ketoacidoses) E10.10 Diabetes mellitus complication detail: without coma Diabetes mellitus type: type 1 Type I diabetes mellitus E10.9 Depression F32.9 Acid reflux disease K21.9 Esophagitis presence: esophagitis presence not specified DVT prophylaxis Z29.9 Discharge planning issues Z02.9 (1) DKA (diabetic ketoacidoses) Diabetes mellitus complication detail: without coma Diabetes mellitus type: type 1 Qualified Code(s): E10.10 - Type 1 diabetes mellitus with ketoacidosis without coma (2) Acid reflux disease Esophagitis presence: esophagitis presence not specified Qualified Code(s): K21.9 - Gastro-esophageal reflux disease without esophagitis
[2020-03-04] MEDS: D5W AND 1/2NSS + 20MEQ KCL 20 MEQ/1,000 ML BAG IV SCH (20:56)
[2020-03-04] MEDS ORDERED: FAMOTIDINE 20 MG in SYRINGE 3 ML IV ONE (21:00)
[2020-03-04] MEDS ORDERED: hydrOXYzine HCl 25 MG TAB PO SCH (21:00)
[2020-03-04] MEDS ORDERED: PROPRANOLOL HCL 60 MG LA CAP PO SCH (21:00)
[2020-03-04] MEDS ORDERED: INSULIN ASPART 100 UNITS/ML 3 ML PEN SC SCH (21:00)
[2020-03-04 21:29] LABS: Creatinine Clr Calc Pharmacy 87.4 ml/min; Est GFR (African American) 110.4; Est GFR (Non-African American) 95.2; Potassium 4.3 mmol/L (3.5-5.1)
[2020-03-04] MEDS: TOCOPHERYL, DL-ALPHA 400 UNITS CAP PO SCH (22:00)
[2020-03-04] MEDS: INSULIN ASPART 100 UNITS/ML 3 ML PEN SC SCH (22:00)
[2020-03-05] MEDS: LINZESS: ORDER AWAITING ACTION SCH ×3 (01:35→16:27)
[2020-03-05] MEDS: D5W AND 1/2NSS + 20MEQ KCL 20 MEQ/1,000 ML BAG IV SCH ×2 (02:16→08:11)
[2020-03-05] MEDS: INSULIN ASPART 100 UNITS/ML 3 ML PEN SC SCH ×3 (08:09→16:34)
[2020-03-05] MEDS: TOCOPHERYL, DL-ALPHA 400 UNITS CAP PO SCH (08:11)
[2020-03-05 08:53] LABS: Estimated Average Glucose 209 mg/dl; Hemoglobin A1C 8.9 % (4.5-5.6)
[2020-03-05] MEDS ORDERED: FLUTICASONE FUROATE 100MCG 14 PUFFS/INHALER INH SCH (09:00)
[2020-03-05] MEDS ORDERED: PANTOprazole 40 MG TAB PO SCH (09:00)
[2020-03-05] MEDS ORDERED: SERTRALINE HCL 100 MG TABLET PO SCH (09:00)
[2020-03-05 09:53] LABS: BUN Creatinine Ratio 7.3 (10-20); Calcium 7.6 mg/dl (8.5-10.1); Creatinine Clr Calc Pharmacy 110.8 ml/min; Est GFR (African American) 141.6; Est GFR (Non-African American) 122.2; Potassium 5.2 mmol/L (3.5-5.1)
[2020-03-05 10:03] LABS: Beta-Hydroxybutyrate 18.42 mg/dl (0.2-2.81)
[2020-03-05] MEDS: D5W AND 1/2NSS 1,000 ML IV SCH ×2 (10:34→16:30)
[2020-03-05 11:25] LABS: BUN Creatinine Ratio 9.1 (10-20); Creatinine Clr Calc Pharmacy 114.3 ml/min; Est GFR (Non-African American) 123.4; Potassium 4.2 mmol/L (3.5-5.1)
[2020-03-05] MEDS ORDERED: SODIUM CHLORIDE 0.45 % 1,000 ML IV SCH (16:30)
[2020-03-05] MEDS: INSULIN REGULAR 250 UNITS in SODIUM CHLORIDE 0.9% 247.5 ML IV SCH (16:34)
--- NOTE | 2020-03-05 18:13 | Discharge Summary ---
Date of Service March 05, 2020 Admission HPI Per Admitting Provider doesnt' really clearly note a trigger - not feeling ill no fevers no urinary sx no cellulitis no pneumonia sx - but did note that she maybe had changed diet some in the last week after mouth ulcer - but HPI most acutely starts early this AM - she was noting an onset of polyuria and dry mouth that persisted and worsened as the day progressed. checked sugar and saw ~500 range and then had instructions on how to try to correct w insulin and oral rehydration - but noted that she was still feeling worse ongoing polyuria and sugars not improving - plus some GI distress was preventing her from being able to drink enough fluids to even try to keep up - so came to ER - found to be in DKA Principal Diagnosis DKA Discharge Exam gen aaox3 pleasant nad heent nc at mmm breathing unlabored no accessory muscles good effort skin no rashes no pallor or icterus neuro no focal deficits, gait steady and stable. Discharge Data Allergies Allergy/AdvReac Type Severity Reaction Status Date / Time gluten Allergy Severe CELIAC'S Verified 03/04/20 15:42 DISEASE Penicillins Allergy Severe ANAPHYLAXIS Verified 03/04/20 15:42 shellfish derived Allergy Severe ANAPHYLAXIS Verified 03/04/20 15:42 apple Allergy Intermediate THROAT Verified 03/04/20 15:42 SWELLS house dust Allergy Intermediate Hives Verified 03/04/20 15:42 oxcarbazepine Allergy Intermediate Rash,hives Verified 03/04/20 15:42 and itchiness. milk Allergy Unknown SENSITIVITY Verified 03/04/20 15:42 lactose AdvReac Intermediate Gatrointestinal Verified 03/04/20 15:42 Upset sumatriptan [From Imitrex] AdvReac Intermediate INTENSIFIES Verified 03/04/20 15:42 HEADACHE Consultations 03/04/20 17:12 ED Decision to Admit Stat Hospital Course (1) DKA (diabetic ketoacidoses): no clear inciting factor; fortunately came in fairly quickly. -fluids, IV insulin -- improved. safe/stable for home (2) Type I diabetes mellitus: A1c 8.9 -- still higher than desired but lowest on record. discussed barriers/obstacles. also discussed that she might get some utility out of checking postprandial glucoses to eval for insulin/carb mismatch. ongoing outpt endocrine f/u (3) Depression: home meds (4) Acid reflux disease: home meds (5) DVT prophylaxis: ambulation utilized during her stay (6) Discharge planning issues: home *of note, she relates persistent and recurrent lightheadedness when standing and inappropriate tachycardia frequently - and longstanding - not just now/when in DKA/dehydrated. wondered about POTS. discussed that currently due to the dehydration/etc associated w DKA this would not be an accurate time for assessment - will ask for referral to cardiology to eval this more in depth. Total Time Total Time Spent Total Time Spent (In Minutes): >30 Discharge Plan Discharge Items Patient Disposition: Home - Self-Care Reason For Visit: DKA Discharge Diagnosis: DKA - improved Condition on Discharge: Good Activity: Resume your previous activity Non-emergency contact: Primary Care Provider and Specialist Call non-emergency contact if: you have any medication questions and your symptoms worsen Follow-up/Referrals: Darian Murray DO [Primary Care Provider] - Diet: Carb Count or DM1 Addtl Attending Provider Instructions: follow up with endocrine later this coming week we'll be working on a referral for dr barnett to evaluate for any true signs of POTS Pending Studies at Discharge: No Stand-Alone Forms: My [employer] Work/School Release (Inpt), Smoking Cessation Medications and DC Order Prescriptions: Continued lorazepam [Ativan] 0.5 mg tablet 0.5 mg PO DAILY PRN (Reason: Anxiety) RF: 0 Basaglar KwikPen U-100 Insulin 100 unit/mL (3 mL) insulin pen 19 units SQ DAILY PRN (Reason: Novolog Pump Failure) RF: 0 Novolog U-100 Insulin aspart 100 unit/mL solution See Rx Instructions SQ DAILY Qty: 30 RF: 5 (DME) Ketostix strip See Rx Instructions .ROUTE .MEDSUPPLY Qty: 100 RF: 2 propranolol 60 mg capsule,extended release 24 hr 60 mg PO HS Qty: 90 RF: 3 Emgality Pen 120 mg/mL pen injector 120 mg SQ MONTHLY Qty: 1 RF: 5 Glucagon (HCl) Emergency Kit 1 mg recon soln 1 mg IM Q20M PRN (Reason: hypoglycemia) Qty: 1 RF: 3 (DME) Aerochamber MV spacer See Rx Instructions .ROUTE .MEDSUPPLY Qty: 1 RF: 0 ketorolac 10 mg tablet 10 mg PO Q6H PRN (Reason: pain) Qty: 12 RF: 2 ondansetron HCl [Zofran] 8 mg tablet 8 mg PO DAILY PRN (Reason: Nausea) Qty: 30 RF: 2 omeprazole 40 mg capsule,delayed release(DR/EC) 40 mg PO QAM RF: 0 hydroxyzine HCl 25 mg tablet 25 mg PO HS RF: 0 sertraline 50 mg tablet 150 mg PO QAM RF: 0 Linzess 145 mcg capsule 145 mcg PO HS PRN (Reason: Gastrointestinal Spasms Or Cramping) RF: 0 vitamin E 400 unit Capsule 400 unit PO BID RF: 0 Flovent HFA 220 mcg/actuation HFA aerosol inhaler 1 puff INHALATION QAM RF: 0 albuterol sulfate 90 mcg/actuation Hfa Aerosol Inhaler 2 puff INHALATION Q4H PRN (Reason: asthma) RF: 0 epinephrine 0.3 mg/0.3 mL Auto-Injector 0.3 mg IM DIRECTED PRN (Reason: Anaphylaxis) RF: 0 (DME) insulin pump controller Misc MISCELLANEOUS RF: 0 Discharge Orders: Discharge Order (Routine); Ordered 03/05/20 Ordered By: Mikhail Petersen/Other Patient Handouts: Managing Type 1 Diabetes, Diabetes: Sick-Day Plan Admission Data Admit Date/Time: 03/04/20 18:46 Attending Provider: Mikhail Middleton Admit Provider: Mikhail Middleton Primary Care Provider: Darian Murray Other Providers: Saúl Gould Coding Level of Care Code D/C Day Management >30 mins Diagnoses DKA (diabetic ketoacidoses) E10.10 Diabetes mellitus complication detail: without coma Diabetes mellitus type: type 1 Type I diabetes mellitus E10.9 Depression F32.9 Acid reflux disease K21.9 Esophagitis presence: esophagitis presence not specified DVT prophylaxis Z29.9 Discharge planning issues Z02.9
== END 2020-03-05 18:48 | disposition home or self-care (01) | DRG 639 ==
LOC: ED 14:51 → 2S 18:46

== ENCOUNTER 2020-07-15 23:14 | Inpatient (IN) ==
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
[2020-07-15 23:58] LABS: Pregnancy Test, Urine Negative (Negative)
[2020-07-16 00:01] LABS: Appearance Urine Cloudy (Clear); Bacteria Urine Automated 3+ (Negative); Bilirubin Urine Negative (Negative); Blood Urine Negative (Negative); Color Urine Yellow; Epithelial Cell Urine Auto >30 /lpf (0-5); Glucose Urine UA Negative (Negative); Ketones Urine Negative (Negative); Leukocyte Esterase Urine 3+ (Negative); Nitrite Urine Negative (Negative); Protein Urine Negative (Negative); Specific Gravity Urine 1.012 (1.000-1.030); Urobilinogen Urine Negative (Negative); WBC Urine Automated >30 /hpf (0-5); pH Urine 7.5 (4.5-7.5)
[2020-07-16 00:02] LABS: Basophils # (auto) 0.03 K/uL (0-0.2); Basophils % (auto) 0.3 %; Eosinophils # (auto) 0.12 K/uL (0-0.5); Eosinophils % (auto) 1.2 %; Hematocrit (blood only) 41.4 % (37-47); Hemoglobin 14.5 g/dL (12.0-16.0); Immature Granulocytes # (auto) 0.02 K/uL (0.00-0.02); Immature Granulocytes % (auto) 0.2 %; Lymphocytes # (auto) 2.08 K/uL (1.2-3.4); Mean Corpuscular Hemoglobin 30.7 pg (25-34); Mean Corpuscular Volume 87.7 fL (80-100); Mean Platelet Volume 11.8 fL (7.4-10.4); Monocytes # (auto) 0.91 K/uL (0.11-0.59); Monocytes % (auto) 9.2 %; Neutrophils # (auto) 6.73 K/uL (1.4-6.5); Neutrophils % (auto) 68.1 %; Platelet Count 317 K/uL (130-400); RDW Standard Deviation 38.5 fL (36.4-46.3); Red Blood Count 4.72 M/uL (4.2-5.4); White Blood Count 9.89 K/uL (4.8-10.8)
[2020-07-16 00:26] LABS: Amphetamines+Metham, Urine Neg (Neg); Barbiturates, Urine Neg (Neg); Benzodiazepine, Urine Neg (Neg); Cocaine, Urine Neg (Neg); MDMA (Ecstacy), Urine Neg (Neg); Methadone, Urine Neg (Neg); Opiate, Urine Neg (Neg); Phencyclidine, Urine Neg (Neg)
[2020-07-16 00:34] LABS: Albumin Globulin Ratio 1.1 (0.9-2); Albumin Level 4.4 gm/dl (3.4-5.0); BUN Creatinine Ratio 14.5 (10-20); Bilirubin,Total 1.6 mg/dl (0.2-1); Calcium 9.7 mg/dl (8.5-10.1); Creatinine Clr Calc Pharmacy 90.9 ml/min; Est GFR (African American) 116.2; Est GFR (Non-African American) 100.2; Potassium 4.1 mmol/L (3.5-5.1); Thyroid Stimulating Hormone 2.26 uIu/ml (0.300-4.500); Total Protein 8.4 gm/dl (6.4-8.2)
[2020-07-16 00:38] LABS: Acetaminophen < 2 ug/ml (10-30); Salicylate < 1.7 mg/dl (2.8-20)
[2020-07-16 00:57] LABS: Cast Urine Automated 0 /lpf (0-5); RBC Urine Automated 0-4 /hpf (0-4)
[2020-07-16] MEDS ORDERED: MAGNESIUM HYDROXIDE SUSP 30 ML UDC PO PRN (04:26)
[2020-07-16] MEDS ORDERED: ACETAMINOPHEN 325 MG TAB PO PRN (04:26)
[2020-07-16] MEDS ORDERED: ALUMINUM/MAGNESIUM SUSP 30 ML UDC PO PRN (04:26)
[2020-07-16] MEDS ORDERED: BISMUTH SUBSALICYLATE LIQD 236 ML PO PRN (04:26)
[2020-07-16] MEDS ORDERED: hydrOXYzine HCl 25 MG TAB PO PRN ×3 (04:26→18:56)
[2020-07-16] MEDS ORDERED: SODIUM CHLORIDE 0.65% NA SOLN 45 ML (OCEAN) PRN (04:26)
[2020-07-16] MEDS ORDERED: LORazepam 0.5 MG TAB PO PRN (04:33)
[2020-07-16] MEDS ORDERED: CYCLOBENZAPRINE HCL 5 MG TAB PO PRN (04:33)
[2020-07-16] MEDS ORDERED: EPINEPHrine ADULT AUTO-INJECT 0.3 MG SYR IM PRN (04:33)
[2020-07-16] MEDS ORDERED: PHARMACY GLYCEMIC MGMT CONSULT PRN (05:13)
[2020-07-16] MEDS ORDERED: CARBOHYDRATES FOR HYPOGLYCEMIA PO PRN (05:45)
[2020-07-16] MEDS ORDERED: GLUCOSE 10 TABS/TUBE PO PRN (05:45)
[2020-07-16] MEDS ORDERED: GLUCOSE 40% GEL 15 GM TUBE PO PRN (05:45)
[2020-07-16] MEDS ORDERED: DEXTROSE 50% 50 ML SYRINGE IV PRN (05:45)
[2020-07-16] MEDS ORDERED: GLUCAGON FOR INJ 1 MG VIAL SQ PRN (05:45)
[2020-07-16] MEDS: INSULIN GLARGINE SOLOSTAR 100 UNITS/ML 3 ML PEN SC SCH (06:39)
[2020-07-16] MEDS: INSULIN ASPART 100 UNITS/ML 3 ML PEN SC SCH ×5 (06:40→21:23)
[2020-07-16] MEDS ORDERED: FLUTICASONE FUROATE 100MCG 14 PUFFS/INHALER INH SCH (09:00)
[2020-07-16] MEDS: CHOLECALCIFEROL 1,000 UNITS 25 MCG TAB PO SCH (09:49)
[2020-07-16] MEDS: PANTOprazole 40 MG TAB PO SCH (09:49)
--- NOTE | 2020-07-16 12:10 | Electrocardiogram Report ---
Test Reason : Blood Pressure : / mmHG Vent. Rate : 087 BPM Atrial Rate : 087 BPM P-R Int : 116 ms QRS Dur : 068 ms QT Int : 362 ms P-R-T Axes : 079 080 062 degrees QTc Int : 435 ms Normal sinus rhythm Possible Left atrial enlargement Borderline ECG When compared with ECG of 27-DEC-2019 16:24, No significant change was found Confirmed by Edgardo Sadler ([id number]) on 07/16/2020 12:10:08 PM Referred By: REFERRED SELF Confirmed By:Edgardo Sadler
[2020-07-16] MEDS ORDERED: LINACLOTIDE 145 MCG CAPSULE PO PRN (13:15)
[2020-07-16] MEDS: SERTRALINE HCL 100 MG TABLET PO SCH (13:40)
--- NOTE | 2020-07-16 13:53 | Pharmacy Report ---
Pharmacy Glycemic Short Note 2 - Date of Service July 16, 2020 - Glycemic Short BSG Results (Last 24 hours): 07/15/20 07/16/20 07/16/20 23:47 06:35 06:37 Glucose 130 H POC Glucose 349 H* 343 H* 07/16/20 07/16/20 09:28 12:36 Glucose POC Glucose 221 H 143 H OUTPATIENT ANTIDIABETIC REGIMEN: * Novolog insulin pump * ~19-20 units of basal * Correction Factor: 1 unit per 50 points over 110 mg/dL * Carb Ratio: 1 unit per 8 grams of CHO * HbA1c: 7.8% (06/15/20) ASSESSMENT: * TRINIDAD is a 25 yo female who presented to ED late last evening for evaluation of suicidal ideation * Patient has T1DM and uses Novolog insulin pump * Pharmacy has been consulted for glycemic management in the past, patient has had reasonable control when utilizing SC insulin * Will use SC insulin while inpatient * Insulin pump was removed upon admission - BSG of 343 mg/dL this morning * Patient given full daily basal dose of 20 units this morning in the form of Lantus * Will utilize outpatient carb ratio and correction factor PLAN FOR INPATIENT GLYCEMIC CONTROL: * Hold outpatient oral diabetes medications * Basal insulin * Lantus 20 units SC daily * Bolus insulin * NovoLog per scale ACHS or Q6hrs while NPO * Goal Range: Low 110 mg/dL - High 140 mg/dL * Correction Factor: 50 mg/dL/unit * Nutritional / Prandial insulin per carb ratio of 1 unit per 8 grams CHO consumed
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
[2020-07-16] MEDS ORDERED: PROPRANOLOL HCL 60 MG LA CAP PO SCH (21:00)
[2020-07-16] MEDS: hydrOXYzine HCl 25 MG TAB PO SCH (21:14)
[2020-07-16] MEDS: PROPRANOLOL HCL 60 MG LA CAP PO SCH (21:14)
--- NOTE | 2020-07-17 08:08 | Psychiatric Progress Note ---
Date of Service July 17, 2020 Impression / Recommendations (1) Borderline personality disorder: 07/16 -continue inpatient treatment, coordinate care with outpatient clinicians at the [facility] psychological clinic. 07/17 - Continue as above. Maintain appropriate boundaries while supporting patient with treatment goals. (2) Generalized anxiety disorder: 07/16 -increase sertraline to 200mg a day to target mood and anxiety symptoms. -maintain hydroxyzine at 25mg hs and add 25mg prn hs for insomnia dose as well -Continue lorazepam as needed with pt using quite rarely -Work on behavioral techniques for managing anxiety. 07/17 - Continue current medication regimen - encourage group attendance and processing stressors with staff as needed (3) Depression with suicidal ideation: 07/16 as above 07/17 - Pt admits to ongoing depression with SI - able to contract for safety on the unit in general, though admits to difficulty tolerating emotional distress (did mention thoughts that they could swallow a staple if they felt overwhelmed and staff was unable to meet with them to process thoughts). - Reviewed conversations from yesterday regarding medication options. Discussed risks and benefits, as well as appropriate timeline, of initiating lithium. Pt wishes to continue to think about this - Pt is reporting considering a case management referral, trying to address the negative stigma and emphasize the support this service would offer - Continue to encourage group attendance. (4) Orthostatic hypotension: 07/16 - encoruage full po intake of food and liquids, and monitor vitals - lower propranolol CR to 60mg a day as pt BP reported to be quite low at times and an PN from 2 months ago indicated med was still at 60mg qday at cardiology appt 07/17 - Continue as above - BP low today at 85/57 (5) Sinus tachycardia: 07/16 - monitor pulse with propranolol cr at 60mg a day 07/17 - Pulse stable today; continue medications as above (6) Type I diabetes mellitus: 07/16 - insulin management of DM 07/17 - Continue as above; glycemic pharmacist consultation for recommendations (7) Migraines: - monthly emgality injection (8) Asthma: - flovent continued (9) Eating disorder: 07/17 - Monitor behaviors and nutritional intake - At this point, not a primary focus of treatment but will continue to monitor (10) Acid reflux disease: 07/16 - continued med management bt convert to formulary option of Prevacid while inpt Risk Factors Assessment Do You Have Access To A Gun?: No Protective Factors Assessment Employed: Yes ([employer]) Interval History Identifying Information MAYA MEYERS is a 24-year-old biological female who identifies as nonbinary and goes by "Yola"; prefers they/them pronouns, currently lives in [place], has a history of depression, borderline personality disorder, NESHA, unspecified eating disorder, type 1 diabetes, IBS, and other medical conditions, and was admitted on 07/16/20 04:27 on a 201 voluntary for acute suicidality concerns. Chief Complaint "Well, I'm here." Review of Systems Notes Constitutional: denied Cardiovascular: denied Respiratory: denied Gastrointestinal: denied Neurological: denied Psychiatric: denies symptoms other than stated above Total of at least 10 systems reviewed, pertinent positives as above and in HPI. Sleep Information Total Hours of Sleep: 6.5 Sleep Comments: . Meal Information Percent Meal Consumed - Breakfast: 10 Percent Meal Consumed - Lunch: 90 Percent Meal Consumed - Dinner: 100 Subjective Subjective Patient was seen & assessed and interval progress reviewed with nursing and social work. Staff reports the patient has been interactive and participating on groups. Displaying a cheerful and bright affect, incongruent with their reported mood last evening - mood was a 2/10 and "a lot." Pt was seen today to assess progress since admission. Conversation was productive and beneficial, but lengthy - reviewing medication considerations suggested yesterday and addressing patient's questions and concerns. They seem to continue to be interested in restarting lithium, but are uncertain of the appropriate timeline and reports concern related to history of hypothyroidism believed to be due to lithium in the past. Pt did process significant frustration with medications and feeling as though none of the medication changes have worked for long, and frustrated with the time it takes to see results. Although patient is not yet interested in making adjustments beyond titration of sertraline that was discussed yesterday, the conversation did seem to be productive. Pt admits to ongoing SI with inability to contract for safety outside of the hospital setting. On the unit in general, the patient feels safe but did state that if they became emotionally distressed they might be tempted to swallow a staple. Pt did admit to feeling they could come to staff before acting on this, but then stated "but if no one was available to speak with me right away, I might then just go to my room and swallow a staple anyway." Encouraged the patient to think of alternative plans, which they were able to do. They also requested to discuss case management, and processed feeling the stigma of this service and feeling "when people suggest a child welfare caseworker that they are really telling me I'm stupid." Pt denied other needs or concerns after our extensive conversation today. Physical Exam Psychiatric Orientation: alert, oriented x 3 and cooperative Apperance: appropriately dressed, appropriately groomed and appeared stated age Eye Contact: good eye contact Motor Behavior: steady gait and station and no abnormal motor movements Speech: normal rate/rhythm/volume of speech Affect: + anxious affect and + constricted affect Mood: + depressed mood and + anxious mood Thought Process: goal directed thought process and clear/coherent thought process Thought Content: + cognitive distortions (consistent with personality disorder diagnosis), + hopelessness, + worthlessness and + self deprecation Suicidal Thoughts: + reports suicidal thoughts and + reports suicidal intent in general, patient is able to contract for safety on the unit - though did mention they thought they could swallow a staple if they became emotionally distressed Homicidal Thoughts: denies homicidal thoughts Hallucinations: no auditory hallucinations and no visual hallucinations Cognition: recent memory grossly intact, attention grossly intact and language grossly intact Estimated Intelligence: consistent with education level Insight: + fair insight Judgement: + limited judgement Vital Signs (Past 24 Hours) Last Vital Signs Temp 36.6 C 07/17/20 06:44 Pulse 82 07/17/20 06:45 Resp 16 07/17/20 06:44 BP 85/57 L 07/17/20 06:45 Pulse Ox 99 07/16/20 05:00 Results & Data ([facility]) Laboratory Results Laboratory Results - last 24 hr 07/16/20 07/16/20 07/16/20 09:28 12:36 17:12 POC Glucose 221 H 143 H 273 H 07/16/20 19:43 POC Glucose 256 H Current Inpatient Medications Current Inpatient Medications: Current Inpatient Medications Acetaminophen (Acetaminophen 325 Mg Tab) 650 mg PO Q4H PRN PRN Reason: Headache or Minor Fever Stop: 08/15/20 04:25 Al Hydrox/Mg Hydrox/Simethicone (Aluminum/Magnesium Susp 30 Ml Udc) 30 ml PO Q4H PRN PRN Reason: GI Upset Stop: 08/15/20 04:25 Bismuth Subsalicylate (Bismuth Subsalicylate Liqd 236 Ml) 15 ml PO PRN PRN PRN Reason: Loose Stool Stop: 08/15/20 04:25 Cyclobenzaprine HCl (Cyclobenzaprine Hcl 5 Mg Tab) 5 mg PO BID PRN PRN Reason: muscle spasm Stop: 08/15/20 04:32 Dextrose (Dextrose 50% 50 Ml Syringe) 25 - 50 ml IV UD PRN; Protocol PRN Reason: Hypoglycemia Protocol Stop: 08/15/20 05:44 Fluticasone Propionate (Fluticasone Hfa 220 Mcg Inhaler) 1 puffs INH QAM [facility]OL[facility] Stop: 08/16/20 08:59 Glucagon (Glucagon For Inj 1 Mg Vial) 1 mg SQ UD PRN; Protocol PRN Reason: Hypoglycemia Protocol Stop: 08/15/20 05:44 Glucose (Glucose 40% Gel 15 Gm Tube) 15 - 30 gm PO UD PRN; Protocol PRN Reason: Hypoglycemia Protocol Stop: 08/15/20 05:44 Glucose (Glucose 10 Tabs/Tube) 4 - 8 tabs PO UD PRN; Protocol PRN Reason: Hypoglycemia Protocol Stop: 08/15/20 05:44 Hydroxyzine HCl (Hydroxyzine Hcl 25 Mg Tab) 25 mg PO HS [facility] Stop: 08/15/20 20:59 Last Admin: 07/16/20 21:14 Dose: 25 mg Documented by: Hydroxyzine HCl (Hydroxyzine Hcl 25 Mg Tab) 25 mg PO Q4H PRN PRN Reason: Anxiety/Insomnia Stop: 08/15/20 04:25 Insulin Aspart (Insulin Aspart 100 Units/Ml 3 Ml Pen) 0 units SC ACHS [facility] Stop: 08/15/20 05:44 Last Admin: 07/16/20 21:23 Dose: 3 units Documented by: Insulin Glargine (Insulin Glargine Solostar 100 Units/Ml 3 Ml Pen) 20 units SC DAILY [facility] Stop: 08/15/20 05:44 Last Admin: 07/16/20 06:39 Dose: 20 units Documented by: Linaclotide (Linaclotide 145 Mcg Capsule) 145 mcg PO DAILY PRN PRN Reason: GI Upset Stop: 08/15/20 13:14 Lorazepam (Lorazepam 0.5 Mg Tab) 0.5 mg PO DAILY PRN PRN Reason: Anxiety Stop: 08/15/20 04:32 Magnesium Hydroxide (Magnesium Hydroxide Susp 30 Ml Udc) 30 ml PO DAILY PRN PRN Reason: Constipation Stop: 08/15/20 04:25 Miscellaneous (Emgality~Order Awaiting Action) 1 ea N/A QS [facility] Stop: 08/15/20 07:59 Last Admin: 07/17/20 01:26 Dose: Not Given Documented by: Miscellaneous (Carbohydrates For Hypoglycemia ) 15 - 30 gm PO UD PRN PRN Reason: Hypoglycemia Treatment Stop: 08/15/20 05:44 Miscellaneous Information (Pharmacy Glycemic Mgmt Consult) 1 ea N/A UD PRN PRN Reason: Consult Stop: 08/15/20 05:12 Pantoprazole Sodium (Pantoprazole 40 Mg Tab) 40 mg PO QAM [place] Stop: 08/15/20 08:59 Last Admin: 07/16/20 09:49 Dose: 40 mg Documented by: Propranolol HCl (Propranolol Hcl 60 Mg [place]) 60 mg PO HS [facility] Stop: 08/15/20 21:59 Last Admin: 07/16/20 21:14 Dose: 60 mg Documented by: Sertraline HCl (Sertraline Hcl 100 Mg Tablet) 200 mg PO QAM [facility] Stop: 08/15/20 12:14 Last Admin: 07/16/20 13:40 Dose: 200 mg Documented by: Sodium Chloride (Sodium Chloride 0.65% Na Soln 45 Ml ([place])) 1 - 2 sprays NA PRN PRN PRN Reason: Nasal Dryness/Congestion Stop: 08/15/20 04:25 Vitamin D (Cholecalciferol 1,000 Units 25 Mcg Tab) 2,000 units PO DAILY [facility] Stop: 08/15/20 08:59 Last Admin: 07/16/20 09:49 Dose: 2,000 units Documented by: Mental Health & Subst Abuse Tx Psychiatrist Name of Psychiatrist: [facility] - Dr. Sahu Therapist Name of Therapist: [facility] - [place] Date of Therapist Appointment: 07/20/20 Time of Therapist Appointment: 5:00 p.m. [employer] Name of [employer]: None Post Discharge Appointments Primary Care Physician Name Of Family Doctor: TARAH Murray Contact Information Discharge Discharge Address: [address] [place] [address] (1) Acid reflux disease Esophagitis presence: esophagitis presence not specified Qualified Code(s): K21.9 - Gastro-esophageal reflux disease without esophagitis (2) Asthma Asthma complication type: uncomplicated Asthma persistence: intermittent Asthma severity: mild Qualified Code(s): J45.20 - Mild intermittent asthma, uncomplicated
[2020-07-17] MEDS: SERTRALINE HCL 100 MG TABLET PO SCH (09:23)
[2020-07-17] MEDS: CHOLECALCIFEROL 1,000 UNITS 25 MCG TAB PO SCH (09:23)
[2020-07-17] MEDS: PANTOprazole 40 MG TAB PO SCH (09:23)
[2020-07-17] MEDS: FLUTICASONE HFA 220 MCG INHALER INH SCH (09:26)
[2020-07-17] MEDS: INSULIN ASPART 100 UNITS/ML 3 ML PEN SC SCH ×4 (09:27→21:10)
[2020-07-17] MEDS: INSULIN GLARGINE SOLOSTAR 100 UNITS/ML 3 ML PEN SC SCH (09:29)
[2020-07-17] MEDS: hydrOXYzine HCl 25 MG TAB PO SCH (21:07)
[2020-07-17] MEDS: PROPRANOLOL HCL 60 MG LA CAP PO SCH (21:08)
[2020-07-18] MEDS: PANTOprazole 40 MG TAB PO SCH (08:34)
[2020-07-18] MEDS: CHOLECALCIFEROL 1,000 UNITS 25 MCG TAB PO SCH (08:35)
[2020-07-18] MEDS: SERTRALINE HCL 100 MG TABLET PO SCH (08:35)
[2020-07-18] MEDS: FLUTICASONE HFA 220 MCG INHALER INH SCH (08:36)
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
[2020-07-18] MEDS: INSULIN GLARGINE SOLOSTAR 100 UNITS/ML 3 ML PEN SC SCH (09:03)
[2020-07-18] MEDS: INSULIN ASPART 100 UNITS/ML 3 ML PEN SC SCH ×4 (09:05→22:14)
[2020-07-18] MEDS ORDERED: hydrOXYzine HCl 25 MG TAB PO PRN (10:41)
--- NOTE | 2020-07-18 10:41 | Pharmacy Report ---
Pharmacy Glycemic Short Note 2 - Date of Service July 18, 2020 - Glycemic Short BSG Results (Last 24 hours): 07/17/20 07/17/20 07/17/20 12:28 15:48 16:04 POC Glucose 150 H 51 L* 77 07/17/20 07/18/20 20:28 08:22 POC Glucose 210 H 136 H OUTPATIENT ANTIDIABETIC REGIMEN: * Novolog insulin pump * ~19-20 units of basal * Correction Factor: 1 unit per 50 points over 110 mg/dL * Carb Ratio: 1 unit per 8 grams of CHO * HbA1c: 7.8% (06/15/20) ASSESSMENT: 07/18 * Patient received total of 35 units of insulin yesterday, of which 20 units were basal insulin * Fasting BSG this AM 136 mg/dl - continue same dosing * BSGs trending down yesterday at dinner. Called and spoke with patient and she feels that she was more active yesterday so typically she does see BSGs trend down during the day if that's the case * She prefer to keep same insulin parameters for today as she notes when things are changed frequently her BSGs tend to get out of control * Will continue same parameters for now, however if we see BSGs trending downward may need to loosen 07/17 * TRINIDAD is a 25 yo female who presented to ED late last evening for evaluation of suicidal ideation * Patient has T1DM and uses Novolog insulin pump * Pharmacy has been consulted for glycemic management in the past, patient has had reasonable control when utilizing SC insulin * Will use SC insulin while inpatient * Insulin pump was removed upon admission - BSG of 343 mg/dL this morning * Patient given full daily basal dose of 20 units this morning in the form of Lantus * Will utilize outpatient carb ratio and correction factor PLAN FOR INPATIENT GLYCEMIC CONTROL: * Hold outpatient oral diabetes medications * Basal insulin * Lantus 20 units SC daily * Bolus insulin * NovoLog per scale ACHS or Q6hrs while NPO * Goal Range: Low 110 mg/dL - High 140 mg/dL * Correction Factor: 50 mg/dL/unit * Nutritional / Prandial insulin per carb ratio of 1 unit per 8 grams CHO consumed
[2020-07-18] MEDS: LITHIUM CARBONATE 300 MG TAB PO SCH (12:21)
[2020-07-18] MEDS: PROPRANOLOL HCL 60 MG LA CAP PO SCH (22:18)
[2020-07-18] MEDS: hydrOXYzine HCl 25 MG TAB PO SCH (22:18)
[2020-07-19] MEDS: INSULIN ASPART 100 UNITS/ML 3 ML PEN SC SCH ×4 (09:56→20:44)
[2020-07-19] MEDS: CHOLECALCIFEROL 1,000 UNITS 25 MCG TAB PO SCH (09:56)
[2020-07-19] MEDS: PANTOprazole 40 MG TAB PO SCH (09:57)
[2020-07-19] MEDS: SERTRALINE HCL 100 MG TABLET PO SCH (09:57)
[2020-07-19] MEDS: LITHIUM CARBONATE 300 MG TAB PO SCH (09:57)
[2020-07-19] MEDS: FLUTICASONE HFA 220 MCG INHALER INH SCH (10:01)
[2020-07-19] MEDS: INSULIN GLARGINE SOLOSTAR 100 UNITS/ML 3 ML PEN SC SCH (10:05)
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
[2020-07-19] MEDS ORDERED: ONDANSETRON 8MG OD TAB PO PRN (12:56)
[2020-07-19] MEDS: hydrOXYzine HCl 25 MG TAB PO SCH (22:08)
[2020-07-19] MEDS: PROPRANOLOL HCL 60 MG LA CAP PO SCH (22:08)
[2020-07-20] MEDS ORDERED: INSULIN ASPART 100 UNITS/ML 3 ML PEN SC SCH
[2020-07-20] MEDS: CHOLECALCIFEROL 1,000 UNITS 25 MCG TAB PO SCH (09:36)
[2020-07-20] MEDS: LITHIUM CARBONATE 300 MG TAB PO SCH (09:37)
[2020-07-20] MEDS: SERTRALINE HCL 100 MG TABLET PO SCH (09:38)
[2020-07-20] MEDS: PANTOprazole 40 MG TAB PO SCH (09:38)
[2020-07-20] MEDS: INSULIN GLARGINE SOLOSTAR 100 UNITS/ML 3 ML PEN SC SCH (09:43)
[2020-07-20] MEDS: INSULIN ASPART 100 UNITS/ML 3 ML PEN SC SCH (09:44)
[2020-07-20] MEDS: FLUTICASONE HFA 220 MCG INHALER INH SCH (09:47)
--- NOTE | 2020-07-20 11:30 | Discharge Summary ---
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 Leukocyte Esterase Urine WBC (Auto) Urine RBC (Auto) U Hyaline Cast (Auto) U Epithel Cells (Auto) Urine Bacteria (Auto) Urine Yeast Urine Test Salicylates Urine Opiates Screen Ur Methadone, Qual Acetaminophen Urine Barbiturates Ur Phencyclidine (PCP) U Amphetamin/Meth Scrn MDMA (Ecstasy) Screen U Benzodiazepines Scrn Ur Cocaine Metabolite U Marijuana (THC) Screen Ethyl Alcohol mg/dL COVID-19 Eval Order SARS-CoV-2, RNA, NAAT Hospital Course (1) Borderline personality disorder: 07/16 -continue inpatient treatment, coordinate care with outpatient clinicians at the [facility] clinic. 07/17 - Continue as above. Maintain appropriate boundaries while supporting patient with treatment goals. 07/18 - Initiating low-dose lithium to target emotional lability as well as chronic suicidality. - Allowed patient to process frustrations regarding the discharge of a peer she had connected with during her stay 07/20 -Mood is improved, suicidal thoughts have improved and are at baseline, denies current plan or intent to harm self, and able to review discharge safety plan. -Tolerating lithium well, prescription issued for 7-days with 2 refills to limit access to large amounts of pills given chronic risk of suicide/overdose. Lab slip provided for lithium trough level to be drawn on or after 07/22/2020, with results sent to Annette Sahu, PhD at the [facility], where she has follow-up for 721. -Patient requesting discharge and is no longer at acute risk of harm to herself, so can be managed as an outpatient at this time. She was referred for case management through [facility], and has follow-up with individual therapy and DBT at the [facility] clinic. (2) Generalized anxiety disorder: 07/16 -increase sertraline to 200mg a day to target mood and anxiety symptoms. -maintain hydroxyzine at 25mg hs and add 25mg prn hs for insomnia dose as well -Continue lorazepam as needed with pt using quite rarely -Work on behavioral techniques for managing anxiety. 07/17 - Continue current medication regimen - encourage group attendance and processing stressors with staff as needed (3) Depression with suicidal ideation: 07/16 as above 07/17 - Pt admits to ongoing depression with SI - able to contract for safety on the unit in general, though admits to difficulty tolerating emotional distress (did mention thoughts that they could swallow a staple if they felt overwhelmed and staff was unable to meet with them to process thoughts). - Reviewed conversations from yesterday regarding medication options. Discussed risks and benefits, as well as appropriate timeline, of initiating lithium. Pt wishes to continue to think about this - Pt is reporting considering a case management referral, trying to address the negative stigma and emphasize the support this service would offer - Continue to encourage group attendance. 07/18 - Ongoing SI - able to contract for safety on unit, not yet feeling safe to leave the hospital. Continue to encourage participation with group programing. - Continue sertraline at 200mg qAM - after extensive conversation with admitting psychiatrist and follow-up conversations with this provider, patient is interested in starting low-dose lithium to target residual depressive symptoms, emotional lability, and chronic suicidality. Will initiate at 150mg after discussion with patient (believes previous dose was 300-450mg daily). Reviewed the numerous medical considerations (symptoms of toxicity, concern regarding effects on thyroid function, etc) and safety considerations (patient had been aware of lethality in overdose - risks and benefits discussed multiple times with multiple providers regarding chronic suicidality). Anticipate patient being prescribed limited supplies of this medication with refills on discharge. - Will order lithium level for 5 days - may need to convert to outpatient lab order depending on discharge timeline - Pt reports willingness for case management referral - Confirm outpatient appointments. 07/19 - Pt admits to occasional SI, but now describing as "pop up thoughts" and denies feeling intent to act. Feels they could possibly be ready for discharge as soon as tomorrow, given desire to attend outpatient individual therapy appointment. - Continue current medication regimen unchanged. (4) Orthostatic hypotension: 07/16 - encoruage full po intake of food and liquids, and monitor vitals - lower propranolol CR to 60mg a day as pt BP reported to be quite low at times and an PN from 2 months ago indicated med was still at 60mg qday at cardiology appt 07/17 - Continue as above - BP low today at 85/57 (5) Sinus tachycardia: 07/16 - monitor pulse with propranolol cr at 60mg a day 07/17 - Pulse stable today; continue medications as above (6) Type I diabetes mellitus: 07/16 - insulin management of DM 07/17 - Continue as above; glycemic pharmacist consultation for recommendations (7) Migraines: - monthly emgality injection (8) Asthma: - flovent continued (9) Eating disorder: 07/17 - Monitor behaviors and nutritional intake - At this point, not a primary focus of treatment but will continue to monitor (10) Acid reflux disease: 07/16 - continued med management bt convert to formulary option of Prevacid while inpt Mental Health & Subst Abuse [facility]x Psychiatrist Name of Psychiatrist: [facility] - Dr. Sahu Psychiatrist's Date of Appointment with Psychiatrist: 08/10/20 Time of Appointment with Psychiatrist: 10:30 a.m. Psychiatric Appointment Comment: [address] [place] [address] [facility] Psychiatrist Release of Information: Obtained, Reviewed and Signed Therapist Name of Therapist: [facility] [place] Therapist's Date of Therapist Appointment: 07/20/20 Time of Therapist Appointment: 5:00 p.m. Therapy Appointment Comment: [facility] Therapist Release of Information: Obtained, Reviewed and Signed [employer] T[employer] Name of [employer] Imp[employer]ating Range Tender: Rose Duran Phone Number for [employer] Tender: [phone] Case Management Appointment Comment: He will call you after discharge to schedule [employer] Release of Information: Obtained, Reviewed and Signed Post Discharge Appointments Primary Care Physician Name Of Family Doctor: TARAH Murray Primary Care Provider Appointment Comment: [address], [place] [address] Primary Care Release of Information: Obtained, Reviewed and Signed Smoking Cessation Counseling Tobacco Cessation Medication Prescribed at Discharge: Not Applicable/Non-Smoker Contact Information Discharge Discharge Address: [address] [place] [address], [place] [address] Discharge Plan Discharge Items Patient Disposition: Home - Self-Care Reason For Visit: SI, DEP Discharge Diagnosis: Borderline personality disorder Activity: Per Instructions section Non-emergency contact: Primary Care Provider, Psychiatrist, Therapist and Income Tax Consultant Call non-emergency contact if: you have any medication questions and your symptoms worsen Follow-up/Referrals: Darian Murray, [Primary Care Provider] - Diet: Carb Count or DM1, Gluten Free and Lactose Intolerant Addtl Attending Provider Instructions: SPECIAL CARE INSTRUCTIONS: 1. Follow through with your scheduled aftercare appointments. If unable to keep an appointment, please call to reschedule. 2. Take your medication only as prescribed. Medication should not be changed or stopped without the approval of your doctor. In the event of worsening symptoms or concerns about side effects, contact your doctor immediately. 3. Utilize new healthy coping skills, anger management skills, and stress management skills learned during your hospitalization. Journal feelings and process them with a support person. Identify stressors or situations that may result in relapse, deterioration or inappropriate behaviors and develop a plan to deal with those issues. 4. If your coping skills are ineffective and you are in crisis, contact your outpatient providers for direction. If unable to reach your providers, please call the [facility] CRISIS LINE AT , go to the [facility] walk-in center at [address], [address], [place], or go to the closest Emergency Room. 5. Avoid alcohol and un-prescribed drugs. 6. You have been provided with the Mental Health Advance Directives Pamphlet for your review. AFTERCARE APPOINTMENTS: * Please call your insurance company prior to your scheduled appointment to confirm your aftercare providers are covered. Take your insurance information to your appointments. WHO TO CALL AND WHEN: Medical Emergencies: For questions or emergencies related to your hospital stay, please contact the Inpatient Behavioral Health Unit at [phone]. A paper sorter is on-call 26/11 for the Behavioral Health Unit for emergencies At any time you feel your situation is an emergency, you may also call 911 immediately. Pending Studies at Discharge: No Stand-Alone Forms: My [facility], Smoking Cessation Medications and DC Order Prescriptions: New sertraline 100 mg Tablet 200 mg PO QAM Qty: 42 RF: 0 lithium carbonate 150 mg capsule 150 mg PO HS Qty: 7 RF: 2 Continued lorazepam [Ativan] 0.5 mg tablet 0.5 mg PO DAILY PRN (Reason: Anxiety) RF: 0 Basaglar KwikPen U-100 Insulin 100 unit/mL (3 mL) insulin pen 19 units SQ DAILY PRN (Reason: Novolog Pump Failure) RF: 0 (DME) Ketostix Strip See Rx Instructions .ROUTE .MEDSUPPLY Qty: 100 RF: 2 Novolog U-100 Insulin aspart 100 unit/mL solution See Rx Instructions SQ DAILY Qty: 30 RF: 5 Glucagon (HCl) Emergency Kit 1 mg recon soln 1 mg IM Q20M PRN (Reason: hypoglycemia) Qty: 1 RF: 3 (DME) Aerochamber MV spacer See Rx Instructions .ROUTE .MEDSUPPLY Qty: 1 RF: 0 propranolol 60 mg capsule,extended release 24 hr 120 mg PO HS RF: 0 cyclobenzaprine 5 mg tablet 5 mg PO BID PRN (Reason: muscle spasm) Qty: 20 RF: 0 cholecalciferol (vitamin D3) 50 mcg (2,000 unit) capsule 50 mcg PO DAILY RF: 0 Emgality Pen 120 mg/mL pen injector 120 mg SQ MONTHLY Qty: 1 RF: 5 ketorolac 10 mg tablet 10 mg PO Q6H PRN (Reason: pain) Qty: 12 RF: 6 omeprazole 40 mg capsule,delayed release(DR/EC) 40 mg PO QAM RF: 0 hydroxyzine HCl 25 mg tablet 25 mg PO HS RF: 0 Flovent HFA 220 mcg/actuation HFA aerosol inhaler 1 puff INHALATION QAM RF: 0 epinephrine 0.3 mg/0.3 mL Auto-Injector 0.3 mg IM DIRECTED PRN (Reason: Anaphylaxis) RF: 0 (DME) insulin pump controller Misc MISCELLANEOUS RF: 0 Linzess 145 mcg capsule 145 mcg PO DAILY PRN (Reason: Gi Upset) RF: 0 ondansetron HCl 8 mg tablet 8 mg PO DAILY PRN (Reason: Nausea) RF: 0 Discontinued sertraline 50 mg tablet 150 mg PO QAM RF: 0 Discharge Orders: Discharge Order (Routine); Ordered 07/20/20 Ordered By: Nata Blackburn Admission Data Admit Date/Time: 07/16/20 04:27 Attending Provider: Chaparro Diaz I. Admit Provider: Chaparro Diaz I. Primary Care Provider: Darian Murray Other Interventions: Discharge Summary Assessment (RN) Last Done: 07/20/20 12:00 PSY Interdisciplinary Discharge Planning Last Done: 07/20/20 12:03 Coding Level of Care Code 34433 D/C day mgmt > 30 min Diagnoses Borderline personality disorder F60.3 Generalized anxiety disorder F41.1 Depression with suicidal ideation F32.9; R45.851 Orthostatic hypotension I95.1 Sinus tachycardia R00.0 Type I diabetes mellitus E10.9 Migraines G43.909 Asthma J45.20 Asthma complication type: uncomplicated Asthma persistence: intermittent Asthma severity: mild Eating disorder F50.9 Acid reflux disease K21.9 Esophagitis presence: esophagitis presence not specified
== END 2020-07-20 12:22 | disposition home or self-care (01) | DRG 881 ==
LOC: ED 23:14 → 3S 07-16 04:27

== ENCOUNTER 2020-11-12 08:37 | Observation (INO) ==
[2020-11-12] MEDS ORDERED: ONDANSETRON INJ 2 MG/ML 2 ML VIAL IV STA (09:12)
[2020-11-12] MEDS ORDERED: NovoLIN-R INSULIN PER UNIT CHARGE IV STA ×2 (09:12→10:48)
[2020-11-12] MEDS ORDERED: SODIUM CHLORIDE 0.9% 1000ML 1,000 ML IV SCH (09:15)
--- NOTE | 2020-11-12 09:16 | Emergency Department Note ---
Impression & Plan DKA (diabetic ketoacidosis), Acute dehydration, Nausea, Hypomagnesemia ED Provider Note NAME: MAYA MEYERS AGE: 25 SEX: F : 1995 ARRIVES VIA: Walk-In INFORMANT: [Patient] ED PROVIDER(S): [Mick Escudero MD] CHIEF COMPLAINT: Hyperglycemia HISTORY OF PRESENT ILLNESS: The patient is a 25-year-old female presents to the ER with high blood sugars. Last evening around 9 PM, basically 12 hours ago, she began to feel nauseated and noticed her heart rate was quick. She had a funny taste in her mouth and had a decreased appetite. She felt weak. She felt like she might be in DKA. She has been in DKA before. There has been no urinary complaint. No cough or cold or congestion. No fever. She has been dealing with a canker sore but really, that is the only thing out of the ordinary. Patient believes that her insulin pump is functioning well. Her site is on her right thigh. REVIEW OF SYSTEMS: See HPI for pertinent positives and negatives. A total of ten systems were reviewed and were otherwise negative. PMHx/PSHx: See Below SOCIAL HISTORY: See Below. PHYSICAL EXAM: GENERAL: Patient is in no acute distress. HEENT: No acute trauma, normocephalic atraumatic, mucous membranes moist, no nasal congestion, no scleral icterus. NECK: No stridor, no adenopathy, no meningismus, trachea is midline. LUNGS: Clear to auscultation bilaterally, no wheeze, no rhonchi, breath sounds equal. HEART: Mildly tachycardic, regular rhythm, no murmurs. ABDOMEN: Soft, nontender, bowel sounds positive, no hernias, no peritonitis. EXTREMITIES: No cyanosis or edema, full range of motion of all the joints without pain or difficulty, no signs for acute trauma. NEUROLOGIC: Oriented x 3, no acute motor or sensory deficits, no focal weakness. SKIN: No rash, no jaundice, no diaphoresis. DIFFERENTIAL DIAGNOSIS: Infection, dehydration, metabolic abnormality, DKA, hypo/hyperglycemia, electrolyte disturbance, anemia, hypoxia, cardiac sources, intracerebral event, toxicologic issues, as well as other pathologies. EMERGENCY DEPARTMENT COURSE/PROCEDURES: ECG: Indication was weakness. The ECG shows a sinus tachycardia with a rate of 111. There is no ST elevation, no PVCs. The QTc is 476. Continuous Cardiac Monitoring: An order was placed for continuous cardiac monitoring. The monitor shows a rate of 102 with sinus tachycardia. MEDICAL DECISION MAKING: There is no leukocytosis or concerning anemia. There is a normal platelet count. VBG does show an acidosis. Sodium was low at 130, sugar was high at over 500. No kidney failure. Magnesium noted to be low at 1.7. No liver enzyme elevation. Patient appeared to be in a euthyroid state. testing was negative. Urinalysis showed ketones, no infection. Chest film did not show pneumonia or CHF. On exam, the patient was interactive, mildly tachycardic and complained of some nausea. Patient was given 2 L of IV saline for hydration. She was given a bolus of IV insulin and then a second bolus of IV insulin. She received IV Zofran for nausea, she was given IV and oral magnesium. Despite the above treatment, patient's sugar is still high. She still feels nauseated. I did repeat a VBG and she is still acidotic. I do think a hospitalization with an insulin drip is warranted. Patient is in DKA, she is in need of a hospital stay to control her acidosis and hyperglycemia. I did speak with the patient and case management. The on-call hospitalist was consulted. Despite the patient's belief that her insulin pump is functioning normally, I suspect the pump may be malfunctioning as I can find no other reason for her findings. Past Med/Surg History Medical History Acid reflux disease (~2013) Allergic rhinitis Asthma . Borderline personality disorder . Celiac disease Chronic joint pain Depression Diabetic gastroparesis associated with type 1 diabetes mellitus (~2017) DKA (diabetic ketoacidoses) Generalized anxiety disorder Gilbert's syndrome Irritable bowel syndrome with constipation Lumbar radiculopathy Migraines Osteopenia Osteoporosis Type I diabetes mellitus (~2013) Followed by Endocrinology Surgical History History of cataract surgery bilateral History of colonoscopy History of esophagogastroduodenoscopy (EGD) History of strabismus surgery right Family History Mother Alcohol abuse Adult celiac disease Osteoporosis Seizure Celiac disease Father Skin cancer squamous cell Drug abuse Alcohol abuse Anxiety Seizure Grandfather Alcohol abuse Uncle Drug abuse Alcohol abuse Brother Drug abuse Unknown Cancer Grandmother Diabetes Colorectal cancer Celiac disease Grandmother Type 1 diabetes Other Bipolar 1 disorder No family history of adverse response to anesthesia Denies family history of Ovarian cancer Prostate cancer Myocardial infarction Breast cancer Lung cancer Hypertension Social History Smoking Status: Former smoker Age Started Using Tobacco: 18; Age Quit Using Tobacco: 20; Cigarettes Per Day: 1 per month; Second Hand Exposure: Yes; Hx Alcohol Use: Yes Alcohol type: beer and wine Hx Substance Use: No Preferred Language: Greek Communication Ability: Effective Hearing Ability: Normal Securities Broker Required: Yes Beliefs That Will Affect Care: None and Spiritual Spiritual Healthcare Practices: Protective bracelet marital status: Single Current Living Situation: Alone Current Living Situation Comment: friend current occupational status: employed current occupation: [employer] Feels Safe at Home: Yes Childhood Exposure to Second-Hand Smoke: Yes caffeine: Yes Dental Care, Regularly: Yes Physical Activity Frequency: 3-4 Times per Week Physical Activity Frequency Comment: walks Seatbelt Use: always Sunscreen Use: Yes (when in the sun for an extended time) Assistive Devices: Glasses Allergies Allergies Allergy/AdvReac Type Severity Reaction Status Date / Time gluten Allergy Severe CELIAC'S Verified 11/12/20 10:06 DISEASE Penicillins Allergy Severe ANAPHYLAXIS Verified 11/12/20 10:06 shellfish derived Allergy Severe ANAPHYLAXIS Verified 11/12/20 10:06 apple Allergy Intermediate THROAT Verified 11/12/20 10:06 SWELLS house dust Allergy Intermediate Hives Verified 11/12/20 10:06 oxcarbazepine Allergy Intermediate Rash,hives Verified 11/12/20 10:06 and itchiness. lactose AdvReac Intermediate Gatrointestinal Verified 11/12/20 10:06 Upset sumatriptan [From Imitrex] AdvReac Intermediate INTENSIFIES Verified 11/12/20 10:06 HEADACHE Home Meds Home Medications Medication Instructions Recorded Confirmed lorazepam 0.5 mg tablet 0.5 mg PO DAILY PRN 01/21/18 11/12/20 insulin glargine 100 unit/mL (3 19 units SQ DAILY PRN ml 11/26/18 11/12/20 mL) subcutaneous pen Flovent HFA 1 puff INHALATION QAM 04/25/19 11/12/20 epinephrine 0.3 mg IM DIRECTED PRN 12/27/19 11/12/20 insulin pump controller 12/27/19 11/12/20 hydroxyzine HCl 25 mg PO HS 02/19/20 11/12/20 omeprazole 40 mg PO QAM 02/19/20 11/12/20 Linzess 145 mcg PO DAILY PRN 07/16/20 11/12/20 cholecalciferol (vitamin D3) 50 4,000 unit PO QAM cap 10/18/20 11/12/20 mcg (2,000 unit) capsule prednisolone acetate [Pred Forte] 1 drp OPB TID 11/12/20 11/12/20 Previous Rx's Medication Instructions Recorded inhalational spacing device #1 ea 03/27/19 galcanezumab-gnlm 120 mg/mL 120 mg SQ MONTHLY #1 ml 04/05/20 subcutaneous pen injector ketorolac 10 mg tablet 10 mg PO Q6H PRN #12 tab 04/05/20 cyclobenzaprine 5 mg tablet 5 mg PO BID PRN #20 tab 06/15/20 acetone (urine) test #100 ea 06/16/20 insulin aspart U-100 100 unit/mL See Rx Instructions SQ DAILY #30 ml 06/16/20 subcutaneous solution sertraline 200 mg PO QAM #42 tab 07/20/20 glucagon HCl 1 mg solution for 1 mg IM Q20M PRN #1 ea 08/05/20 injection ondansetron HCl 8 mg tablet 8 mg PO DAILY PRN #30 tab 08/29/20 propranolol 60 mg capsule,24 60 mg PO HS #90 cap 08/29/20 hr,extended release comp.stocking,thigh,short,smal #2 ea 09/21/20 Results & Data (ED) Vital Signs Vital Signs - 24 hr 11/12/20 08:41 11/12/20 09:20 11/12/20 11:42 Temperature 36.8 C Temperature Source Temporal Artery Scan Pulse Rate 124 H 105 H Pulse Rate [Apical] 99 H Pulse Rhythm Regular Respiratory Rate 18 20 Respiratory Effort / Characteristics Non-Labored Respiratory Depth Normal Respiratory Pattern Regular Blood Pressure 103/68 Blood Pressure [Right Arm] 96/59 L Blood Pressure Mean 79 Blood Pressure Mean [Right Arm] 71 Blood Pressure Position Sitting Blood Pressure Position [Right Arm] Lying Pulse Oximetry 96 98 96 Oxygen Delivery Method Room Air Room Air Room Air Sepsis Recent Fever Within 48 Hours No Sepsis New/Unexplained Change in Mental Status No Sepsis Action Taken by Nursing No Action Required 11/12/20 13:12 Temperature Temperature Source Pulse Rate Pulse Rate [Apical] 89 Pulse Rhythm Respiratory Rate 20 Respiratory Effort / Characteristics Respiratory Depth Respiratory Pattern Blood Pressure Blood Pressure [Right Arm] 94/57 L Blood Pressure Mean Blood Pressure Mean [Right Arm] 69 Blood Pressure Position Blood Pressure Position [Right Arm] Pulse Oximetry 98 Oxygen Delivery Method Room Air Sepsis Recent Fever Within 48 Hours Sepsis New/Unexplained Change in Mental Status Sepsis Action Taken by Group Home Medications Current Medication List: was personally reviewed by me Laboratory Data Attestation: I reviewed the patient's lab results. Result diagrams: 11/12/20 09:05 11/12/20 09:05 Lab Results 11/12/20 11/12/20 11/12/20 Range/Units 08:49 09:05 09:05 WBC 8.88 (4.8-10.8) K/uL RBC 4.32 (4.2-5.4) M/uL Hgb 13.1 (12.0-16.0) g/dL Hct 38.8 (37-47) % MCV 89.8 (80-100) fL MCH 30.3 (25-34) pg MCHC 33.8 (32-36) g/dL RDW Std Deviation 38.8 (36.4-46.3) fL RDW Coeff of Keanu 11.8 (11.5-14.5) % Plt Count 272 (130-400) K/uL MPV 11.7 H (7.4-10.4) fL Immature Gran % (Auto) 0.2 % Neut % (Auto) 73.6 % Lymph % (Auto) 17.8 % [place] % (Auto) 7.8 % Eos % (Auto) 0.3 % Baso % (Auto) 0.3 % Neut # (Auto) 6.53 H (1.4-6.5) K/uL Lymph # (Auto) 1.58 (1.2-3.4) K/uL [place] # (Auto) 0.69 H (0.11-0.59) K/uL Eos # (Auto) 0.03 (0-0.5) K/uL Baso # (Auto) 0.03 (0-0.2) K/uL Immature Gran # (Auto) 0.02 (0.00-0.02) K/uL VBG pH (7.36-7.41) VBG pCO2 (38-50) mmHg VBG pO2 mmHg VBG HCO3 mmol/L VBG O2 Saturation % VBG Base Excess mEq/L Barometric Pressure mm/Hg Sodium 130 L (136-145) mmol/L Potassium 4.6 (3.5-5.1) mmol/L Chloride 98 (98-107) mmol/L Carbon Dioxide 19 L (21-32) mmol/L Anion Gap 13.0 H (3-11) BUN 18 (7-18) mg/dl Creatinine 0.92 (0.6-1.2) mg/dl Est Cr Clr Drug Dosing 80.0 ml/min Est GFR ( Amer) 99.6 ml/min Est GFR (Non-Af Amer) 85.9 ml/min BUN/Creatinine Ratio 19.7 (10-20) Glucose 516 H* (70-99) mg/dl POC Glucose 518 H* (70-99) mg/dl Calcium 9.1 (8.5-10.1) mg/dl Magnesium 1.7 L (1.8-2.4) mg/dl Total Bilirubin 2.4 H (0.2-1) mg/dl AST 13 L (15-37) U/L ALT 14 (12-78) U/L Alkaline Phosphatase 84 (45-117) U/L Total Protein 7.5 (6.4-8.2) gm/dl Albumin 4.1 (3.4-5.0) gm/dl Globulin 3.4 (2.5-4.0) gm/dl Albumin/Globulin Ratio 1.2 (0.9-2) Beta-Hydroxybutyric Acd 50.51 H (0.2-2.81) mg/dl TSH 1.150 (0.300-4.500) uIu/ml HCG, Qual (Negative) Urine Color Urine Appearance (Clear) Urine pH (4.5-7.5) Ur Specific [place] (1.000-1.030) Urine Protein (Negative) Urine Glucose (UA) (Negative) Urine Ketones (Negative) Urine Blood (Negative) Urine Nitrite (Negative) Urine Bilirubin (Negative) Urine Urobilinogen (Negative) Ur Leukocyte Esterase (Negative) Urine WBC (Auto) (0-5) /hpf Urine RBC (Auto) (0-4) /hpf U Hyaline Cast (Auto) (0-5) /lpf U Epithel Cells (Auto) (0-5) /lpf Urine Bacteria (Auto) (Negative) 11/12/20 11/12/20 11/12/20 Range/Units 09:05 09:23 10:33 WBC (4.8-10.8) K/uL RBC (4.2-5.4) M/uL Hgb (12.0-16.0) g/dL Hct (37-47) % MCV (80-100) fL MCH (25-34) pg MCHC (32-36) g/dL RDW Std Deviation (36.4-46.3) fL RDW Coeff of Keanu (11.5-14.5) % Plt Count (130-400) K/uL MPV (7.4-10.4) fL Immature Gran % (Auto) % Neut % (Auto) % Lymph % (Auto) % [place] % (Auto) % Eos % (Auto) % Baso % (Auto) % Neut # (Auto) (1.4-6.5) K/uL Lymph # (Auto) (1.2-3.4) K/uL [place] # (Auto) (0.11-0.59) K/uL Eos # (Auto) (0-0.5) K/uL Baso # (Auto) (0-0.2) K/uL Immature Gran # (Auto) (0.00-0.02) K/uL VBG pH 7.33 L (7.36-7.41) VBG pCO2 35 L (38-50) mmHg VBG pO2 40 mmHg VBG HCO3 18 mmol/L VBG O2 Saturation 73.5 % VBG Base Excess -7.4 mEq/L Barometric Pressure 733.6 mm/Hg Sodium (136-145) mmol/L Potassium (3.5-5.1) mmol/L Chloride (98-107) mmol/L Carbon Dioxide (21-32) mmol/L Anion Gap (3-11) BUN (7-18) mg/dl Creatinine (0.6-1.2) mg/dl Est Cr Clr Drug Dosing ml/min Est GFR ( Amer) ml/min Est GFR (Non-Af Amer) ml/min BUN/Creatinine Ratio (10-20) Glucose (70-99) mg/dl POC Glucose 340 H* (70-99) mg/dl Calcium (8.5-10.1) mg/dl Magnesium (1.8-2.4) mg/dl Total Bilirubin (0.2-1) mg/dl AST (15-37) U/L ALT (12-78) U/L Alkaline Phosphatase (45-117) U/L Total Protein (6.4-8.2) gm/dl Albumin (3.4-5.0) gm/dl Globulin (2.5-4.0) gm/dl Albumin/Globulin Ratio (0.9-2) Beta-Hydroxybutyric Acd (0.2-2.81) mg/dl TSH (0.300-4.500) uIu/ml HCG, Qual Negative (Negative) Urine Color Urine Appearance (Clear) Urine pH (4.5-7.5) Ur Specific [place] (1.000-1.030) Urine Protein (Negative) Urine Glucose (UA) (Negative) Urine Ketones (Negative) Urine Blood (Negative) Urine Nitrite (Negative) Urine Bilirubin (Negative) Urine Urobilinogen (Negative) Ur Leukocyte Esterase (Negative) Urine WBC (Auto) (0-5) /hpf Urine RBC (Auto) (0-4) /hpf U Hyaline Cast (Auto) (0-5) /lpf U Epithel Cells (Auto) (0-5) /lpf Urine Bacteria (Auto) (Negative) 11/12/20 11/12/20 11/12/20 Range/Units 10:40 12:42 13:05 WBC (4.8-10.8) K/uL RBC (4.2-5.4) M/uL Hgb (12.0-16.0) g/dL Hct (37-47) % MCV (80-100) fL MCH (25-34) pg MCHC (32-36) g/dL RDW Std Deviation (36.4-46.3) fL RDW Coeff of Keanu (11.5-14.5) % Plt Count (130-400) K/uL MPV (7.4-10.4) fL Immature Gran % (Auto) % Neut % (Auto) % Lymph % (Auto) % [place] % (Auto) % Eos % (Auto) % Baso % (Auto) % Neut # (Auto) (1.4-6.5) K/uL Lymph # (Auto) (1.2-3.4) K/uL [place] # (Auto) (0.11-0.59) K/uL Eos # (Auto) (0-0.5) K/uL Baso # (Auto) (0-0.2) K/uL Immature Gran # (Auto) (0.00-0.02) K/uL VBG pH 7.34 L (7.36-7.41) VBG pCO2 36 L (38-50) mmHg VBG pO2 33 mmHg VBG HCO3 19 mmol/L VBG O2 Saturation 65.2 % VBG Base Excess -6.1 mEq/L Barometric Pressure 733.7 mm/Hg Sodium (136-145) mmol/L Potassium (3.5-5.1) mmol/L Chloride (98-107) mmol/L Carbon Dioxide (21-32) mmol/L Anion Gap (3-11) BUN (7-18) mg/dl Creatinine (0.6-1.2) mg/dl Est Cr Clr Drug Dosing ml/min Est GFR ( Amer) ml/min Est GFR (Non-Af Amer) ml/min BUN/Creatinine Ratio (10-20) Glucose (70-99) mg/dl POC Glucose 230 H (70-99) mg/dl Calcium (8.5-10.1) mg/dl Magnesium (1.8-2.4) mg/dl Total Bilirubin (0.2-1) mg/dl AST (15-37) U/L ALT (12-78) U/L Alkaline Phosphatase (45-117) U/L Total Protein (6.4-8.2) gm/dl Albumin (3.4-5.0) gm/dl Globulin (2.5-4.0) gm/dl Albumin/Globulin Ratio (0.9-2) Beta-Hydroxybutyric Acd (0.2-2.81) mg/dl TSH (0.300-4.500) uIu/ml HCG, Qual (Negative) Urine Color Yellow Urine Appearance Clear (Clear) Urine pH 5.0 (4.5-7.5) Ur Specific [place] 1.026 (1.000-1.030) Urine Protein Negative (Negative) Urine Glucose (UA) 3+ H (Negative) Urine Ketones 4+ H (Negative) Urine Blood Negative (Negative) Urine Nitrite Negative (Negative) Urine Bilirubin Negative (Negative) Urine Urobilinogen Negative (Negative) Ur Leukocyte Esterase Trace H (Negative) Urine WBC (Auto) 5-10 H (0-5) /hpf Urine RBC (Auto) 0-4 (0-4) /hpf U Hyaline Cast (Auto) 1-5 (0-5) /lpf U Epithel Cells (Auto) >30 H (0-5) /lpf Urine Bacteria (Auto) 1+ H (Negative) 11/12/20 11/12/20 Range/Units 14:03 14:38 WBC (4.8-10.8) K/uL RBC (4.2-5.4) M/uL Hgb (12.0-16.0) g/dL Hct (37-47) % MCV (80-100) fL MCH (25-34) pg MCHC (32-36) g/dL RDW Std Deviation (36.4-46.3) fL RDW Coeff of Keanu (11.5-14.5) % Plt Count (130-400) K/uL MPV (7.4-10.4) fL Immature Gran % (Auto) % Neut % (Auto) % Lymph % (Auto) % [place] % (Auto) % Eos % (Auto) % Baso % (Auto) % Neut # (Auto) (1.4-6.5) K/uL Lymph # (Auto) (1.2-3.4) K/uL [place] # (Auto) (0.11-0.59) K/uL Eos # (Auto) (0-0.5) K/uL Baso # (Auto) (0-0.2) K/uL Immature Gran # (Auto) (0.00-0.02) K/uL VBG pH (7.36-7.41) VBG pCO2 (38-50) mmHg VBG pO2 mmHg VBG HCO3 mmol/L VBG O2 Saturation % VBG Base Excess mEq/L Barometric Pressure mm/Hg Sodium (136-145) mmol/L Potassium (3.5-5.1) mmol/L Chloride (98-107) mmol/L Carbon Dioxide (21-32) mmol/L Anion Gap (3-11) BUN (7-18) mg/dl Creatinine (0.6-1.2) mg/dl Est Cr Clr Drug Dosing ml/min Est GFR ( Amer) ml/min Est GFR (Non-Af Amer) ml/min BUN/Creatinine Ratio (10-20) Glucose (70-99) mg/dl POC Glucose 239 H 269 H (70-99) mg/dl Calcium (8.5-10.1) mg/dl Magnesium (1.8-2.4) mg/dl Total Bilirubin (0.2-1) mg/dl AST (15-37) U/L ALT (12-78) U/L Alkaline Phosphatase (45-117) U/L Total Protein (6.4-8.2) gm/dl Albumin (3.4-5.0) gm/dl Globulin (2.5-4.0) gm/dl Albumin/Globulin Ratio (0.9-2) Beta-Hydroxybutyric Acd (0.2-2.81) mg/dl TSH (0.300-4.500) uIu/ml HCG, Qual (Negative) Urine Color Urine Appearance (Clear) Urine pH (4.5-7.5) Ur Specific [place] (1.000-1.030) Urine Protein (Negative) Urine Glucose (UA) (Negative) Urine Ketones (Negative) Urine Blood (Negative) Urine Nitrite (Negative) Urine Bilirubin (Negative) Urine Urobilinogen (Negative) Ur Leukocyte Esterase (Negative) Urine WBC (Auto) (0-5) /hpf Urine RBC (Auto) (0-4) /hpf U Hyaline Cast (Auto) (0-5) /lpf U Epithel Cells (Auto) (0-5) /lpf Urine Bacteria (Auto) (Negative) Administered Medications Insulin Human Regular 250 (units/ Sodium Chloride) 250 mls @ 5 mls/hr IV .Q24H [facility]; Protocol Stop: 12/12/20 14:29 Last Admin: 11/12/20 14:36 Dose: 5 units/hr, 5 mls/hr Documented by: [id number] Cosigned by: [id number] Discontinued Medications Sodium Chloride (Nss 1000ml) 1,000 mls @ 999 mls/hr IV .Q1H1M RANDOLPH Stop: 11/12/20 10:15 Last Infusion: 11/12/20 10:30 Dose: 0 mls/hr Documented by: [id number] Admin: 11/12/20 09:27 Dose: 999 mls/hr Documented by: [id number] Sodium Chloride (Nss 1000ml) 1,000 mls @ 999 mls/hr IV .Q1H1M ONE Stop: 11/12/20 11:10 Last Infusion: 11/12/20 12:32 Dose: 0 mls/hr Documented by: [id number] Admin: 11/12/20 11:29 Dose: 999 mls/hr Documented by: [id number] Magnesium Sulfate/Dextrose (Magnesium Sulfate / D5w) 1 gm in 100 mls @ 100 mls/hr IV NOW STA Stop: 11/12/20 12:12 Last Infusion: 11/12/20 12:32 Dose: 0 mls/hr Documented by: [id number] Admin: 11/12/20 11:29 Dose: 100 mls/hr Documented by: [id number] Insulin Human Regular (Novolin-R Insulin Per Unit Charge) 10 units IV NOW STA Stop: 11/12/20 09:13 Last Admin: 11/12/20 09:27 Dose: 10 units Documented by: [id number] Cosigned by: [id number] Insulin Human Regular (Novolin-R Insulin Per Unit Charge) 8 units IV NOW STA Stop: 11/12/20 10:49 Last Admin: 11/12/20 11:17 Dose: 8 units Documented by: [id number] Cosigned by: [id number] Magnesium Oxide (Magnesium Oxide 400 Mg Tab) 400 mg PO NOW STA Stop: 11/12/20 11:14 Last Admin: 11/12/20 11:29 Dose: 400 mg Documented by: [id number] Ondansetron HCl (Ondansetron Inj 2 Mg/Ml 2 Ml Vial) 4 mg IV NOW STA Stop: 11/12/20 09:13 Last Admin: 11/12/20 09:27 Dose: 4 mg Documented by: [id number] Imaging Data Radiologist's Impression: Chest X-Ray 11/12/20 09:12 XR chest 1V portable CLINICAL HISTORY: weakness COMPARISON STUDY: No previous studies for comparison. FINDINGS: No pneumothorax. No pleural effusion. No large infiltrates or consolidative lesions are seen. Cardiomediastinal silhouette is within normal limits in size. No significant pulmonary vascular congestion.. Osseous structures: unremarkable IMPRESSION: 1. No acute pulmonary process. ACT 112: Negative or not required by law. The above report was generated using voice recognition software. It may contain grammatical, syntax or spelling errors. Electronically signed by: Susanne Anderson DO 11/12/2020 10:12 AM Discharge Plan Visit Data Chief Complaint: Hyperglycemia Stated Complaint: DKA SYMPTOMS ED Provider: Mick Escudero Discharge Problem: DKA (diabetic ketoacidosis), Acute dehydration, Nausea, Hypomagnesemia Patient Disposition: Admitted As Inpatient Condition: Fair Forms Stand Alone Forms: [facility] [place] [employer] Prescriptions Prescriptions: No Action lorazepam [Ativan] 0.5 mg tablet 0.5 mg PO DAILY PRN (Reason: Anxiety) RF: 0 Basaglar KwikPen U-100 Insulin 100 unit/mL (3 mL) insulin pen 19 units SQ DAILY PRN (Reason: Novolog Pump Failure) RF: 0 (DME) Ketostix Strip See Rx Instructions .ROUTE .MEDSUPPLY Qty: 100 RF: 2 Novolog U-100 Insulin aspart 100 unit/mL solution See Rx Instructions SQ DAILY Qty: 30 RF: 5 Glucagon (HCl) Emergency Kit 1 mg recon soln 1 mg IM Q20M PRN (Reason: hypoglycemia) Qty: 1 RF: 3 propranolol 60 mg capsule,extended release 24 hr 60 mg PO HS Qty: 90 RF: 3 ondansetron HCl 8 mg tablet 8 mg PO DAILY PRN (Reason: Nausea) Qty: 30 RF: 0 cholecalciferol (vitamin D3) [Vitamin D3] 50 mcg (2,000 unit) capsule 4,000 unit PO QAM RF: 0 (DME) Aerochamber MV spacer See Rx Instructions .ROUTE .MEDSUPPLY Qty: 1 RF: 0 cyclobenzaprine 5 mg tablet 5 mg PO BID PRN (Reason: muscle spasm) Qty: 20 RF: 0 Emgality Pen 120 mg/mL pen injector 120 mg SQ MONTHLY Qty: 1 RF: 5 ketorolac 10 mg tablet 10 mg PO Q6H PRN (Reason: pain) Qty: 12 RF: 6 (DME) comp.stocking,thigh,short,smal Misc See Rx Instructions .ROUTE .MEDSUPPLY Qty: 2 RF: 1 omeprazole 40 mg capsule,delayed release(DR/EC) 40 mg PO QAM RF: 0 hydroxyzine HCl 25 mg tablet 25 mg PO HS RF: 0 Flovent HFA 220 mcg/actuation HFA aerosol inhaler 1 puff INHALATION QAM RF: 0 epinephrine 0.3 mg/0.3 mL Auto-Injector 0.3 mg IM DIRECTED PRN (Reason: Anaphylaxis) RF: 0 (DME) insulin pump controller Misc MISCELLANEOUS RF: 0 Linzess 145 mcg capsule 145 mcg PO DAILY PRN (Reason: Gi Upset) RF: 0 sertraline 100 mg Tablet 200 mg PO QAM Qty: 42 RF: 0 prednisolone acetate [Pred Forte] 1 % drops,suspension 1 drp OPB TID RF: 0 Referrals Referrals: Darian Murray DO [Primary Care Provider] - Discharge Problem: DKA (diabetic ketoacidosis) Qualifiers: Diabetes mellitus type: type 1 Diabetes mellitus complication detail: without coma Qualified Code(s): E10.10 - Type 1 diabetes mellitus with ketoacidosis with out coma
[2020-11-12 09:26] LABS: Basophils # (auto) 0.03 K/uL (0-0.2); Basophils % (auto) 0.3 %; Eosinophils # (auto) 0.03 K/uL (0-0.5); Eosinophils % (auto) 0.3 %; Hematocrit (blood only) 38.8 % (37-47); Hemoglobin 13.1 g/dL (12.0-16.0); Immature Granulocytes # (auto) 0.02 K/uL (0.00-0.02); Immature Granulocytes % (auto) 0.2 %; Lymphocytes # (auto) 1.58 K/uL (1.2-3.4); Lymphocytes % (auto) 17.8 %; Mean Corpuscular Hemoglobin 30.3 pg (25-34); Mean Corpuscular Hgb Conc 33.8 g/dL (32-36); Mean Corpuscular Volume 89.8 fL (80-100); Mean Platelet Volume 11.7 fL (7.4-10.4); Monocytes # (auto) 0.69 K/uL (0.11-0.59); Monocytes % (auto) 7.8 %; Neutrophils # (auto) 6.53 K/uL (1.4-6.5); Neutrophils % (auto) 73.6 %; Platelet Count 272 K/uL (130-400); RDW Coefficient of Variation 11.8 % (11.5-14.5); RDW Standard Deviation 38.8 fL (36.4-46.3); Red Blood Count 4.32 M/uL (4.2-5.4); White Blood Count 8.88 K/uL (4.8-10.8)
[2020-11-12 09:45] LABS: Pregnancy Test, Serum Negative (Negative)
[2020-11-12 09:46] LABS: Base Excess VBG -7.4 mEq/L; Oxygen Saturation VBG 73.5 %; pH VBG 7.33 (7.36-7.41)
[2020-11-12 09:59] LABS: Albumin Globulin Ratio 1.2 (0.9-2); Albumin Level 4.1 gm/dl (3.4-5.0); BUN Creatinine Ratio 19.7 (10-20); Bilirubin,Total 2.4 mg/dl (0.2-1); Calcium 9.1 mg/dl (8.5-10.1); Est GFR (African American) 99.6 ml/min; Est GFR (Non-African American) 85.9 ml/min; Globulin 3.4 gm/dl (2.5-4.0); Magnesium 1.7 mg/dl (1.8-2.4); Potassium 4.6 mmol/L (3.5-5.1); Thyroid Stimulating Hormone 1.15 uIu/ml (0.300-4.500); Total Protein 7.5 gm/dl (6.4-8.2)
[2020-11-12] MEDS ORDERED: SODIUM CHLORIDE 0.9% 1000ML 1,000 ML IV ONE (10:10)
--- NOTE | 2020-11-12 10:14 | XRay Report ---
XR chest 1V portable CLINICAL HISTORY: weakness COMPARISON STUDY: No previous studies for comparison. FINDINGS: No pneumothorax. No pleural effusion. No large infiltrates or consolidative lesions are seen. Cardiomediastinal silhouette is within normal limits in size. No significant pulmonary vascular congestion.. Osseous structures: unremarkable IMPRESSION: 1. No acute pulmonary process. ACT 112: Negative or not required by law. The above report was generated using voice recognition software. It may contain grammatical, syntax o r spelling errors. Electronically signed by: Susanne Anderson DO 11/12/2020 10:12 AM
[2020-11-12 10:28] LABS: Beta-Hydroxybutyrate 50.51 mg/dl (0.2-2.81)
--- NOTE | 2020-11-12 10:30 | Electrocardiogram Report ---
Test Reason : Blood Pressure : / mmHG Vent. Rate : 111 BPM Atrial Rate : 111 BPM P-R Int : 134 ms QRS Dur : 070 ms QT Int : 350 ms P-R-T Axes : 066 077 045 degrees QTc Int : 476 ms Sinus tachycardia Otherwise normal ECG When compared with ECG of 15-JUL-2020 23:55, Nonspecific T wave abnormality no longer evident in Anterior leads Confirmed by Edwin Elliott ([id number]) on 11/12/2020 10:29:38 AM Referred By: Confirmed By:Ramiro Elliott
[2020-11-12 11:04] LABS: Appearance Urine Clear (Clear); Bacteria Urine Automated 1+ (Negative); Bilirubin Urine Negative (Negative); Blood Urine Negative (Negative); Color Urine Yellow; Epithelial Cell Urine Auto >30 /lpf (0-5); Glucose Urine UA 3+ (Negative); Ketones Urine 4+ (Negative); Leukocyte Esterase Urine Trace (Negative); Nitrite Urine Negative (Negative); Protein Urine Negative (Negative); RBC Urine Automated 0-4 /hpf (0-4); Specific Gravity Urine 1.026 (1.000-1.030); Urobilinogen Urine Negative (Negative)
[2020-11-12] MEDS ORDERED: MAGNESIUM OXIDE 400 MG TAB PO STA (11:13)
[2020-11-12] MEDS ORDERED: MAGNESIUM SULFATE / D5W 1 GM/100 ML BAG IV STA (11:13)
[2020-11-12 13:14] LABS: Base Excess VBG -6.1 mEq/L; Oxygen Saturation VBG 65.2 %; pH VBG 7.34 (7.36-7.41)
[2020-11-12] MEDS ORDERED: INSULIN REGULAR 250 UNITS in SODIUM CHLORIDE 0.9% 247.5 ML IV SCH ×2 (14:30→18:20)
--- NOTE | 2020-11-12 15:03 | History & Physical Report ---
Date of Service November 12, 2020 Assessment & Plan (1) DKA (diabetic ketoacidosis): Impression: Is a 25-year-old female with a history of type 1 diabetes diagnosed at age 13. At age 18 the patient began using insulin pump. The patient was working last evening and had weakness and some nausea. She was unable to get her sugars under control with boluses from the pump. This appears to be a pump failure. Patient will be started on insulin drip in the emergency department per the e mergency room physician. BMP will be obtained at 1800 this evening. If anion gap is closed, will discontinue insulin drip and give 19 units of Lantus subcu. If this occurs, patient can have diabetic heart healthy diet for dinner as tolerated. Patient is a process of getting new insulin supplies but most likely will not be able to use the pump until mid week. Anticipate discharging the patient on Lantus 19 units HS with NovoLog sliding scale. Follow labs every 4 hours until anion gap is closed Outpatient follow-up with Luis Eduardo Morton at the endocrine office. (2) Type I diabetes mellitus: See above under DKA (3) Diabetic gastroparesis associated with type 1 diabetes mellitus: Patient with some nausea associated with elevated anion gap Continue Linzess 145 mcg daily as needed No current issues or abdominal pain (4) Acid reflux disease: Patient currently on omeprazole daily Will substitute pantoprazole while inpatient and discharge on home med of om eprazole (5) Hypomagnesemia: Received 1 g of magnesium sulfate in the emergency department as well as oral supplementation Check repeat magnesium every 4 Replete as necessary Potassium is currently stable at 4.6 (6) Generalized anxiety disorder: Continue usual home medications including propanolol and sertraline (7) Asthma: Mild stable Not on any inhalers at home No bronchospasm on exam Follow clinically (8) Migraines: No headache at this time. Clinical management as needed (9) DVT prophylaxis: No chemical prophylaxis at this time SCDs and NIEVES borges History of Present Illness Primary Care Provider: Darian Murray DO Attending: Dr. Paul Vallceillo This is a 25-year-old female with a history of type 1 diabetes diagnosed at age 13, chronic orthostatic hypotension, recurrent DKA, dysphagia, gastroparesis secondary diabetes, celiac disease's, IBS, borderline personality disorder, asthma, GERD, history of migraines, history of tobacco abuse (quit smoking in 2016). The patient has an insulin pump which apparently quit working last night. 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 She tried to bolus several times with the pump with no success in reducing BSG. She has had some nausea but no vomiting. No fever. No abdominal pain. No diarrhea. She states that she has frequent urinary tract infections but does not have any symptoms at this time. She had no lethargy or loss of consciousness. She has no palpitations. She has no chest pain or tightness. The patient was diagnosed with her diabetes type 1 at age 13. She was on long- term insulin until age 18 when she had the insulin pump. She follows regularly with Luis Eduardo Morton at the endocrinology office. Her hemoglobin A1c October was 8.4. When her insulin pump is failed in the past she uses Lantus 19 units HS and NovoLog sliding scale coverage. At this point it looks as though she will not have equipment needed to resume insulin pump until the middle of the week. The patient lives alone and is single. She is estranged from her parents. Decision-makers would be aunt and uncle who live in another state. We talked about the benefit of establishing a power of associate attorney. Patient wishes to be a level 1 full resuscitation. Allergies Allergy/AdvReac Type Severity Reaction Status Date / Time gluten Allergy Severe CELIAC'S Verified 11/12/20 10:06 DISEASE Penicillins Allergy Severe ANAPHYLAXIS Verified 11/12/20 10:06 shellfish derived Allergy Severe ANAPHYLAXIS Verified 11/12/20 10:06 apple Allergy Intermediate THROAT Verified 11/12/20 10:06 SWELLS house dust Allergy Intermediate Hives Verified 11/12/20 10:06 oxcarbazepine Allergy Intermediate Rash,hives Verified 11/12/20 10:06 and itchiness. lactose AdvReac Intermediate Gatrointestinal Verified 11/12/20 10:06 Upset sumatriptan [From Imitrex] AdvReac Intermediate INTENSIFIES Verified 11/12/20 10:06 HEADACHE Home Medications Medication Instructions Recorded Confirmed Type lorazepam 0.5 mg tablet 0.5 mg PO DAILY PRN 01/21/18 11/12/20 History insulin glargine 100 unit/mL (3 19 units SQ DAILY PRN ml 11/26/18 11/12/20 History mL) subcutaneous pen inhalational spacing device #1 ea 03/27/19 11/12/20 Rx Flovent HFA 1 puff INHALATION QAM 04/25/19 11/12/20 History epinephrine 0.3 mg IM DIRECTED PRN 12/27/19 11/12/20 History insulin pump controller 12/27/19 11/12/20 History hydroxyzine HCl 25 mg PO HS 02/19/20 11/12/20 History omeprazole 40 mg PO QAM 02/19/20 11/12/20 History galcanezumab-gnlm 120 mg/mL 120 mg SQ MONTHLY #1 ml 04/05/20 11/12/20 Rx subcutaneous pen injector ketorolac 10 mg tablet 10 mg PO Q6H PRN #12 tab 04/05/20 11/12/20 Rx cyclobenzaprine 5 mg tablet 5 mg PO BID PRN #20 tab 06/15/20 11/12/20 Rx acetone (urine) test #100 ea 06/16/20 11/12/20 Rx insulin aspart U-100 100 unit/mL See Rx Instructions SQ DAILY #30 ml 06/16/20 11/12/20 Rx subcutaneous solution Linzess 145 mcg PO DAILY PRN 07/16/20 11/12/20 History sertraline 200 mg PO QAM #42 tab 07/20/20 11/12/20 Rx glucagon HCl 1 mg solution for 1 mg IM Q20M PRN #1 ea 08/05/20 11/12/20 Rx injection ondansetron HCl 8 mg tablet 8 mg PO DAILY PRN #30 tab 08/29/20 11/12/20 Rx propranolol 60 mg capsule,24 60 mg PO HS #90 cap 08/29/20 11/12/20 Rx hr,extended release comp.stocking,thigh,short,smal #2 ea 09/21/20 11/12/20 Rx cholecalciferol (vitamin D3) 50 4,000 unit PO QAM cap 10/18/20 11/12/20 History mcg (2,000 unit) capsule prednisolone acetate [Pred Forte] 1 drp OPB TID 11/12/20 11/12/20 History Past Med/Surg History Medical History Acid reflux disease (~2013) Allergic rhinitis Asthma . Borderline personality disorder . Celiac disease Chronic joint pain Depression Diabetic gastroparesis associated with type 1 diabetes mellitus (~2016) DKA (diabetic ketoacidoses) Generalized anxiety disorder Gilbert's syndrome Irritable bowel syndrome with constipation Lumbar radiculopathy Migraines Osteopenia Osteoporosis Type I diabetes mellitus (~2013) Followed by Endocrinology Surgical History History of cataract surgery bilateral History of colonoscopy History of esophagogastroduodenoscopy (EGD) History of strabismus surgery right Family History Mother Alcohol abuse Adult celiac disease Osteoporosis Seizure Celiac disease Father Skin cancer squamous cell Drug abuse Alcohol abuse Anxiety Seizure Grandfather Alcohol abuse Uncle Drug abuse Alcohol abuse Brother Drug abuse Unknown Cancer Grandmother Diabetes Colorectal cancer Celiac disease Grandmother Type 1 diabetes Other Bipolar 1 disorder No family history of adverse response to anesthesia Denies family history of Ovarian cancer Prostate cancer Myocardial infarction Breast cancer Lung cancer Hypertension Social History Smoking Status: Never smoker Age Started Using Tobacco: 18; Age Quit Using Tobacco: 20; Cigarettes Per Day: 1 per month; Second Hand Exposure: Yes; Hx Alcohol Use: No Hx Substance Use: No Preferred Language: Maori Communication Ability: Effective Hearing Ability: Normal Weight And Balance Control Agent Required: No Beliefs That Will Affect Care: None and Spiritual Spiritual Healthcare Practices: Protective bracelet marital status: Single Current Living Situation: Alone Current Living Situation Comment: friend current occupational status: employed current occupation: [employer] Feels Safe at Home: Yes Childhood Exposure to Second-Hand Smoke: Yes caffeine: Yes Dental Care, Regularly: Yes Physical Activity Frequency: 3-4 Times per Week Physical Activity Frequency Comment: walks Seatbelt Use: always Sunscreen Use: Yes (when in the sun for an extended time) Assistive Devices: None Review of Systems Review of Systems: All systems reviewed & are unremarkable except as noted in HPI & below Physical Exam Physical Exam: GENERAL : No acute distress. Patient is pleasant and talkative. EYES: No icterus, gaze conjugate. Pupils equal round and reactive to light NOSE: No evidence of epistaxis. MOUTH: No lesions or candidiasis identified. Patient does state that it feels as though she has a canker sore in the buccal area on the right side. I did not see this. NECK: Supple. No stridor or carotid bruits LUNGS: CTA B/L, no wheezes, rales or rhonchi. HEART: Regular, rate controlled. No appreciation of murmurs gallops or rubs. ABDOMEN: Soft, NT, ND, BS Present EXTREMITIES: No LE edema, pedal pulses intact NEURO: A&OX3. Cranial nerves II through XII appear grossly intact with no focal deficit. Gait and Romberg are deferred. Results & Data Results & Data ([facility]) Vital Signs (Past 12 Hours) Vital Signs Temp Pulse Pulse Resp BP BP Pulse Ox 11/12/20 13:12 89 20 94/57 L 98 11/12/20 11:42 99 H 20 96/59 L 96 11/12/20 09:20 105 H 98 11/12/20 08:41 36.8 C 124 H 18 103/68 96 Laboratory Results 11/12/20 09:05 11/12/20 09:05 11/12/20 11/12/20 09:23 13:05 VBG pH 7.33 L 7.34 L VBG pCO2 35 L 36 L VBG pO2 40 33 VBG HCO3 18 19 VBG O2 Saturation 73.5 65.2 VBG Base Excess -7.4 -6.1 Diagnostic Findings XR chest 1V portable CLINICAL HISTORY: weakness COMPARISON STUDY: No previous studies for comparison. FINDINGS: No pneumothorax. No pleural effusion. No large infiltrates or consolidative lesions are seen. Cardiomediastinal silhouette is within normal limits in size. No significant pulmonary vascular congestion.. Osseous structures: unremarkable IMPRESSION: 1. No acute pulmonary process. ACT 112: Negative or not required by law. The above report was generated using voice recognition software. It may contain grammatical, syntax or spelling errors. Electronically signed by: Susanne Anderson DO 11/12/2020 10:12 AM ECG Additional Comments: Blood Pressure : / mmHG Vent. Rate : 111 BPM Atrial Rate : 111 BPM P-R Int : 134 ms QRS Dur : 070 ms QT Int : 350 ms P-R-T Axes : 066 077 045 degrees QTc Int : 476 ms Sinus tachycardia Otherwise normal ECG When compared with ECG of 15-JUL-2020 23:55, Nonspecific T wave abnormality no longer evident in Anterior leads Confirmed by Edwin Elliott ([id number]) on 11/12/2020 10:29:38 AM Code Status & VTE Plan Code Status Level 1: Full resuscitation VTE Prophylaxis Plan VTE Prophylaxis will be ordered: Yes Supervising Physician Co-Signing Physician Notes Attending addendum: I have physically seen this patient, have supervised the SHUN's activities, and agree with the H&P unless as otherwise noted. Assessment and Plan: DKA- Likely secondary to her insulin pump failure. No active signs of infection or symptoms to suggest such. She did not respond well to IV regular insulin IV fluids in ED, hence, the patient was placed on an insulin drip. Plan is to repeat laboratories at 5 PM to follow anion gap, give Lantus 19 units subcu at that time, and stop insulin drip 1 hour later. After that, NovoLog coverage per scale will be followed. Diabetic gastroparesis/GERD- Continue Linzess 145 mcg daily and omeprazole/pantoprazole daily Remaining orders and notations as noted PG Care Time/CCT Total # of Minutes Spent Total Time Spent with Patient: Total time spent is greater than 50% in coordination of care (as documented) at patient's floor/unit and/or counseling patient: 60 minutes Coding Level of Care Code 09785 OBS Care - Level 3 Diagnoses DKA (diabetic ketoacidosis) E10.10 Diabetes mellitus complication detail: without coma Diabetes mellitus type: type 1 Type I diabetes mellitus E10.9 Diabetic gastroparesis associated with type 1 diabetes mellitus E10.43; K31.84 Acid reflux disease K21.9 Esophagitis presence: esophagitis presence not specified Hypomagnesemia E83.42 Generalized anxiety disorder F41.1 Asthma J45.20 Asthma complication type: uncomplicated Asthma persistence: intermittent Asthma severity: mild Migraines G43.909 DVT prophylaxis Z29.9 Time Spent (min) 60 (1) DKA (diabetic ketoacidosis) Diabetes mellitus complication detail: without coma Diabetes mellitus type: type 1 Qualified Code(s): E10.10 - Type 1 diabetes mellitus with ketoacidosis without coma (2) Acid reflux disease Esophagitis presence: esophagitis presence not specified Qualified Code(s): K21.9 - Gastro-esophageal reflux disease without esophagitis (3) Asthma Asthma complication type: uncomplicated Asthma persistence: intermittent Asthma severity: mild Qualified Code(s): J45.20 - Mild intermittent asthma, uncomplicated
[2020-11-12] MEDS ORDERED: INSULIN ASPART 100 UNITS/ML 3 ML PEN SC SCH ×2 (16:30→18:20)
[2020-11-12] MEDS ORDERED: LORazepam 0.5 MG TAB PO PRN (18:20)
[2020-11-12] MEDS ORDERED: NORMOSOL-R 1,000 ML IV SCH (18:20)
[2020-11-12] MEDS ORDERED: STAT IV Infusion **Titration per Protocol STA (18:20)
[2020-11-12] MEDS ORDERED: DKA GOAL RANGE 150-250 mg/dl ONE (18:20)
[2020-11-12] MEDS ORDERED: POLYETHYLENE (MIRALAX) 17 GM PACK PO PRN (18:20)
[2020-11-12] MEDS ORDERED: ACETAMINOPHEN 325 MG TAB PO PRN (18:20)
[2020-11-12] MEDS ORDERED: INSULIN GLARGINE SOLOSTAR 100 UNITS/ML 3 ML PEN SC ONE (18:20)
[2020-11-12] MEDS ORDERED: ONDANSETRON INJ 2 MG/ML 2 ML VIAL IV PRN (18:20)
[2020-11-12] MEDS ORDERED: PENDING D5 1/2NS+20mEq KCL IVF SCH (18:20)
[2020-11-12] MEDS ORDERED: CYCLOBENZAPRINE HCL 5 MG TAB PO PRN (18:20)
[2020-11-12] MEDS ORDERED: LINACLOTIDE 145 MCG CAPSULE PO PRN (18:28)
[2020-11-12 19:21] LABS: BUN Creatinine Ratio 16.8 (10-20); Calcium 8.3 mg/dl (8.5-10.1); Creatinine Clr Calc Pharmacy 111.5 ml/min; Est GFR (African American) 141.3 ml/min; Est GFR (Non-African American) 121.9 ml/min; Magnesium 1.9 mg/dl (1.8-2.4); Phosphorus 3.2 mg/dl (2.5-4.9); Potassium 4.5 mmol/L (3.5-5.1)
[2020-11-12] MEDS ORDERED: KETOROLAC TROMETHAMINE 10 MG TABLET PO ONE (19:30)
[2020-11-12] MEDS: INSULIN ASPART 100 UNITS/ML 3 ML PEN SC SCH ×2 (20:31→21:44)
[2020-11-12] MEDS ORDERED: hydrOXYzine HCl 25 MG TAB PO SCH (21:00)
[2020-11-12] MEDS ORDERED: PROPRANOLOL HCL 60 MG LA CAP PO SCH (21:00)
[2020-11-12 22:45] LABS: BUN Creatinine Ratio 16.6 (10-20); Calcium 8.4 mg/dl (8.5-10.1); Creatinine Clr Calc Pharmacy 118.7 ml/min; Est GFR (African American) 144.2 ml/min; Est GFR (Non-African American) 124.4 ml/min; Magnesium 1.7 mg/dl (1.8-2.4); Phosphorus 3.1 mg/dl (2.5-4.9); Potassium 4.6 mmol/L (3.5-5.1)
[2020-11-13 02:24] LABS: BUN Creatinine Ratio 14.4 (10-20); Calcium 8.2 mg/dl (8.5-10.1); Creatinine Clr Calc Pharmacy 111.5 ml/min; Est GFR (African American) 141.3 ml/min; Est GFR (Non-African American) 121.9 ml/min; Magnesium 1.7 mg/dl (1.8-2.4); Potassium 4.6 mmol/L (3.5-5.1)
[2020-11-13] MEDS ORDERED: KETOROLAC TROMETHAMINE 10 MG TABLET PO PRN (03:30)
[2020-11-13 06:46] LABS: BUN Creatinine Ratio 17.2 (10-20); Blood Urea Nitrogen 9 mg/dl (7-18); Carbon Dioxide 23 mmol/L (21-32); Chloride 111 mmol/L (98-107); Creatinine Clr Calc Pharmacy 138.9 ml/min; Est GFR (African American) > 150.0 ml/min; Glucose 170 mg/dl (70-99); Magnesium 1.6 mg/dl (1.8-2.4); Phosphorus 2.8 mg/dl (2.5-4.9); Potassium 4.2 mmol/L (3.5-5.1); Sodium 138 mmol/L (136-145)
[2020-11-13] MEDS ORDERED: PHARMACY GLYCEMIC MGMT CONSULT PRN (08:38)
[2020-11-13] MEDS: INSULIN ASPART 100 UNITS/ML 3 ML PEN SC SCH ×2 (08:56→12:53)
[2020-11-13] MEDS ORDERED: PANTOprazole 40 MG TAB PO SCH (09:00)
[2020-11-13] MEDS ORDERED: FLUTICASONE FUROATE 100MCG 14 PUFFS/INHALER INH SCH (09:00)
[2020-11-13] MEDS ORDERED: SERTRALINE HCL 100 MG TABLET PO SCH (09:00)
--- NOTE | 2020-11-13 10:37 | Pharmacy Report ---
Pharmacy Glycemic Short Note 2 - Date of Service November 13, 2020 - Glycemic Short BSG Results (Last 24 hours): 11/12/20 11/12/20 11/12/20 10:33 12:42 14:03 Glucose POC Glucose 340 H* 230 H 239 H 11/12/20 11/12/20 11/12/20 14:38 15:58 17:00 Glucose POC Glucose 269 H 221 H 160 H 11/12/20 11/12/20 11/12/20 18:00 18:50 19:22 Glucose 151 H POC Glucose 132 H 168 H 11/12/20 11/12/20 11/13/20 21:42 22:12 01:56 Glucose 219 H 229 H POC Glucose 203 H 11/13/20 11/13/20 06:15 07:47 Glucose 170 H POC Glucose 138 H OUTPATIENT ANTIDIABETIC REGIMEN: * Insulin pump ASSESSMENT: * [place] is a 25 y/o T1DM on insulin pump who presents in DKA. Patient initially started on insulin infusion and then given home dose of Lantus 19 units last night. Fasting BSG today is 138 mg/dL. * Spoke with patient via telephone. Patient does not have supplies for CGM until midweek so could set pump up then. * Continue current regimen as reviewed with patient. PLAN FOR INPATIENT GLYCEMIC CONTROL: * Hold outpatient oral diabetes medications * Basal insulin * Lantus 19 units SQ HS * Bolus insulin * NovoLog per scale ACHS or Q6hrs while NPO * Goal Range: Low 110 mg/dL - High 150 mg/dL * Correction Factor: 50 mg/dL/unit * Nutritional / Prandial insulin per carb ratio of 1 unit per 8 grams CHO consumed PLAN FOR DISCHARGE: * Continue current regimen as an outpatient. HbA1C is much improved and patient working closely with endocrinology. * When starting pump, start about 22 hours after last dose of Lantus to allow for 2 hours of overlap.
[2020-11-13] MEDS ORDERED: GLUCOSE 10 TABS/TUBE PO PRN (10:45)
[2020-11-13] MEDS ORDERED: CARBOHYDRATES FOR HYPOGLYCEMIA PO PRN (10:45)
[2020-11-13] MEDS ORDERED: DEXTROSE 50% 50 ML SYRINGE IV PRN (10:45)
[2020-11-13] MEDS ORDERED: GLUCOSE 40% GEL 15 GM TUBE PO PRN (10:45)
[2020-11-13] MEDS ORDERED: GLUCAGON FOR INJ 1 MG VIAL IM PRN (10:45)
[2020-11-13 11:20] LABS: BUN Creatinine Ratio 11.8 (10-20); Calcium 8.5 mg/dl (8.5-10.1); Creatinine Clr Calc Pharmacy 109.9 ml/min; Est GFR (African American) 140.6 ml/min; Est GFR (Non-African American) 121.3 ml/min; Magnesium 1.7 mg/dl (1.8-2.4); Potassium 3.9 mmol/L (3.5-5.1)
[2020-11-13 12:09] LABS: Phosphorus 2.1 mg/dl (2.5-4.9)
--- NOTE | 2020-11-13 12:48 | Discharge Summary ---
Date of Service November 13, 2020 Admission HPI Per Admitting Provider Attending: Dr. Paul Vallecillo This is a 25-year-old female with a history of type 1 diabetes diagnosed at age 13, chronic orthostatic hypotension, recurrent DKA, dysphagia, gastroparesis secondary diabetes, celiac disease's, IBS, borderline personality disorder, asthma, GERD, history of migraines, history of tobacco abuse (quit smoking in 2016). The patient has an insulin pump which apparently quit working last night. 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 She tried to bolus several times with the pump with no success in reducing BSG. She has had some nausea but no vomiting. No fever. No abdominal pain. No diarrhea. She states that she has frequent urinary tract infections but does not have any symptoms at this time. She had no lethargy or loss of consciousness. She has no palpitations. She has no chest pain or tightness. The patient was diagnosed with her diabetes type 1 at age 13. She was on long- term insulin until age 18 when she had the insulin pump. She follows regularly with Luis Eduardo Morton at the endocrinology office. Her hemoglobin A1c October was 8.4. When her insulin pump is failed in the past she uses Lantus 19 units HS and NovoLog sliding scale coverage. At this point it looks as though she will not have equipment needed to resume insulin pump until the middle of the week. The patient lives alone and is single. She is estranged from her parents. Decision-makers would be aunt and uncle who live in another state. We talked about the benefit of establishing a power of trial attorney. Patient wishes to be a level 1 full resuscitation. Principal Diagnosis Diabetic ketoacidosis Discharge Exam Constitutional WD/WN, vitals as above well developed and well nourished ENMT external ear and nose normal, oropharynx normal Respiratory normal respiratory effort, lungs clear to auscultation Cardiovascular RRR, no murmur, no edema Gastrointestinal (Abdomen) Inspection/Auscultation: abdomen normal to inspection Skin no rashes, warm and dry Neurologic moves all extremities Psychiatric A+Ox3, euthymic affect Discharge Data Allergies Allergy/AdvReac Type Severity Reaction Status Date / Time gluten Allergy Severe CELIAC'S Verified 11/12/20 10:06 DISEASE Penicillins Allergy Severe ANAPHYLAXIS Verified 11/12/20 10:06 shellfish derived Allergy Severe ANAPHYLAXIS Verified 11/12/20 10:06 apple Allergy Intermediate THROAT Verified 11/12/20 10:06 SWELLS house dust Allergy Intermediate Hives Verified 11/12/20 10:06 oxcarbazepine Allergy Intermediate Rash,hives Verified 11/12/20 10:06 and itchiness. lactose AdvReac Intermediate Gatrointestinal Verified 11/12/20 10:06 Upset sumatriptan [From Imitrex] AdvReac Intermediate INTENSIFIES Verified 11/12/20 10:06 HEADACHE Consultations 11/12/20 14:36 ED Decision to Admit Stat Hospital Course (1) DKA (diabetic ketoacidosis): Impression: Is a 25-year-old female with a history of type 1 diabetes diagnosed at age 13. At age 18 the patient began using insulin pump. The patient was working last evening and had weakness and some nausea. She was unable to get her sugars under control with boluses from the pump. This appears to be a pump failure. On admission: Patient will be started on insulin drip in the emergency department per the emergency room physician. BMP will be obtained at 1800 this evening. If anion gap is closed, will discontinue insulin drip and give 19 units of Lantus subcu. If this occurs, patient can have diabetic heart healthy diet for dinner as tolerated. Patient is a process of getting new insulin supplies but most likely will not be able to use the pump until mid week. Anticipate discharging the patient on Lantus 19 units HS with NovoLog sliding scale. Follow labs every 4 hours until anion gap is closed Outpatient follow-up with Luis Eduardo Morton at the endocrine office. At discharge: Patient's anion gap closed on evenign day of admission and had 19 units of lantus. On day of discharge, patient was asymptomatic and blood sugar was controlled. Patient tolerating diet. Patient will resume home meds and will followup with anatomical embalmer and PCP in 1-2 weeks. Will resume home regimen at discharge. (2) Type I diabetes mellitus: See above under DKA (3) Diabetic gastroparesis associated with type 1 diabetes mellitus: Patient with some nausea associated with elevated anion gap Continue Linzess 145 mcg daily as needed No current issues or abdominal pain (4) Acid reflux disease: Patient currently on omeprazole daily Will substitute pantoprazole while inpatient and discharge on home med of omeprazole (5) Hypomagnesemia: Received 1 g of magnesium sulfate in the emergency department as well as oral supplementation Check repeat magnesium every 4 Replete as necessary Potassium is currently stable at 4.6 (6) Generalized anxiety disorder: Continue usual home medications including propanolol and sertraline (7) Asthma: Mild stable Not on any inhalers at home No bronchospasm on exam Follow clinically (8) Migraines: No headache at this time. Clinical management as needed (9) DVT prophylaxis: No chemical prophylaxis at this time SCDs and NIEVES borges Total Time Total Time Spent Total Time Spent (In Minutes): 32 Total Time Includes: Examination of the Patient, Discharge Planning and Medication Reconciliation Discharge Plan Discharge Items Patient Disposition: Home - Self-Care Reason For Visit: DKA, TYPE 1 DIABETES Discharge Diagnosis: DKA type 1 Diabetes Condition on Discharge: Fair Activity: Resume your previous activity Non-emergency contact: Primary Care Provider Call non-emergency contact if: you have any medication questions Follow-up/Referrals: Darian Murray, [Primary Care Provider] - Diet: Carb Count or DM1 Addtl Attending Provider Instructions: morenita recommend you resume your home regimen. And followup closely with your anatomical embalmer Pending Studies at Discharge: No Stand-Alone Forms: My PlanStan, Smoking Cessation Medications and DC Order Prescriptions: Continued lorazepam [Ativan] 0.5 mg tablet 0.5 mg PO DAILY PRN (Reason: Anxiety) RF: 0 Basaglar KwikPen U-100 Insulin 100 unit/mL (3 mL) insulin pen 19 units SQ DAILY PRN (Reason: Novolog Pump Failure) RF: 0 (DME) Ketostix Strip See Rx Instructions .ROUTE .MEDSUPPLY Qty: 100 RF: 2 Novolog U-100 Insulin aspart 100 unit/mL solution See Rx Instructions SQ DAILY Qty: 30 RF: 5 Glucagon (HCl) Emergency Kit 1 mg recon soln 1 mg IM Q20M PRN (Reason: hypoglycemia) Qty: 1 RF: 3 propranolol 60 mg capsule,extended release 24 hr 60 mg PO HS Qty: 90 RF: 3 ondansetron HCl 8 mg tablet 8 mg PO DAILY PRN (Reason: Nausea) Qty: 30 RF: 0 cholecalciferol (vitamin D3) [Vitamin D3] 50 mcg (2,000 unit) capsule 4,000 unit PO QAM RF: 0 (DME) Aerochamber MV spacer See Rx Instructions .ROUTE .MEDSUPPLY Qty: 1 RF: 0 cyclobenzaprine 5 mg tablet 5 mg PO BID PRN (Reason: muscle spasm) Qty: 20 RF: 0 Emgality Pen 120 mg/mL pen injector 120 mg SQ MONTHLY Qty: 1 RF: 5 ketorolac 10 mg tablet 10 mg PO Q6H PRN (Reason: pain) Qty: 12 RF: 6 (DME) comp.stocking,thigh,short,smal Misc See Rx Instructions .ROUTE .MEDSUPPLY Qty: 2 RF: 1 omeprazole 40 mg capsule,delayed release(DR/EC) 40 mg PO QAM RF: 0 hydroxyzine HCl 25 mg tablet 25 mg PO HS RF: 0 Flovent HFA 220 mcg/actuation HFA aerosol inhaler 1 puff INHALATION QAM RF: 0 epinephrine 0.3 mg/0.3 mL Auto-Injector 0.3 mg IM DIRECTED PRN (Reason: Anaphylaxis) RF: 0 (DME) insulin pump controller Misc MISCELLANEOUS RF: 0 Linzess 145 mcg capsule 145 mcg PO DAILY PRN (Reason: Gi Upset) RF: 0 sertraline 100 mg Tablet 200 mg PO QAM Qty: 42 RF: 0 prednisolone acetate [Pred Forte] 1 % drops,suspension 1 drp OPB TID RF: 0 Discharge Orders: Discharge Order (Routine); Ordered 11/13/20 Ordered By: Dipesh Donis Admission Data Admit Date/Time: 11/12/20 15:27 Attending Provider: Dipesh Donis Admit Provider: Paul Quiñones Primary Care Provider: Darian Murray Other Providers: Paul Quiñones Other Interventions: Discharge Summary Assessment (RN) Last Done: 11/13/20 12:51 Coding Level of Care Code 16985 OBS Care - Discharge Diagnoses DKA (diabetic ketoacidosis) E10.10 Diabetes mellitus complication detail: without coma Diabetes mellitus type: type 1 Type I diabetes mellitus E10.9 Diabetic gastroparesis associated with type 1 diabetes mellitus E10.43; K31.84 Acid reflux disease K21.9 Esophagitis presence: esophagitis presence not specified Hypomagnesemia E83.42 Generalized anxiety disorder F41.1 Asthma J45.20 Asthma complication type: uncomplicated Asthma persistence: intermittent Asthma severity: mild Migraines G43.909 DVT prophylaxis Z29.9
[2020-11-13] MEDS ORDERED: INSULIN GLARGINE SOLOSTAR 100 UNITS/ML 3 ML PEN SC SCH (21:00)
== END 2020-11-13 13:20 | disposition home or self-care (01) ==
LOC: ED 08:37 → 2N 08:37 → SUATTDRO 15:27 → 2N 18:02

== ENCOUNTER 2020-12-07 16:27 | Inpatient (IN) ==
--- NOTE | 2020-12-07 17:16 | Emergency Department Note ---
History of Present Illness General Chief Complaint: Mental Health Evaluation Stated Complaint: MENTAL HEALTH EVAL Time Seen by Provider: 12/07/20 17:13 Source: patient Mode of arrival: ambulatory Limitations: no limitations History of Present Illness Provider complaint: suicidal ideation Onset (ago): week(s) Duration: getting worse History of same: Yes Relieved By: + none Exacerbated By: + none Context: + significant life stressor (Work has been stressful); no recent alcohol abuse, no recent drug abuse, no not taking psychiatric medications or no new medication(s) Associated psychiatric symptoms: + depression and + suicidal ideation; no homicidal ideation, no racing thoughts, no auditory hallucinations, no visual hallucinations or no delusions Associated symptoms: no confusion, no shortness of breath or no nausea Treatments prior to arrival: + none If self harm: + admits thoughts of self harm and + has plan; no has acted on plan, no intentional overdose, no self-inflicted trauma or no gunshot Home Medications Medication Instructions Recorded Confirmed Type lorazepam 0.5 mg tablet (Ativan) 0.5 mg PO DAILY PRN 01/21/18 12/07/20 History insulin glargine 100 unit/mL (3 19 units SQ DAILY PRN ml 11/26/18 12/07/20 History mL) subcutaneous pen (Basaglar KwikPen U-100 Insulin) inhalational spacing device #1 ea 03/27/19 12/07/20 Rx (Aerochamber MV) fluticasone propionate 220 1 puff INHALATION QAM 04/25/19 12/07/20 History mcg/actuation HFA aerosol inhaler (Flovent HFA) epinephrine 0.3 mg/0.3 mL 0.3 mg IM DIRECTED PRN 12/27/19 12/07/20 History injection, auto-injector insulin pump controller 12/27/19 12/07/20 History omeprazole 40 mg capsule,delayed 40 mg PO QAM 02/19/20 12/07/20 History release galcanezumab-gnlm 120 mg/mL 120 mg SQ MONTHLY #1 ml 04/05/20 12/07/20 Rx subcutaneous pen injector (Emgality Pen) ketorolac 10 mg tablet 10 mg PO Q6H PRN #12 tab 04/05/20 12/07/20 Rx cyclobenzaprine 5 mg tablet 5 mg PO BID PRN #20 tab 06/15/20 12/07/20 Rx acetone (urine) test (Ketostix) #100 ea 06/16/20 12/07/20 Rx insulin aspart U-100 100 unit/mL See Rx Instructions SQ DAILY #30 ml 06/16/20 12/07/20 Rx subcutaneous solution (Novolog U-100 Insulin aspart) linaclotide 145 mcg capsule 145 mcg PO DAILY PRN 07/16/20 12/07/20 History (Linzess) sertraline 100 mg tablet 200 mg PO QAM #42 tab 07/20/20 12/07/20 Rx glucagon HCl 1 mg solution for 1 mg IM Q20M PRN #1 ea 08/05/20 12/07/20 Rx injection (Glucagon (HCl) Emergency Kit) ondansetron HCl 8 mg tablet 8 mg PO DAILY PRN #30 tab 08/29/20 12/07/20 Rx propranolol 60 mg capsule,24 60 mg PO HS #90 cap 08/29/20 12/07/20 Rx hr,extended release comp.stocking,thigh,short,smal #2 ea 09/21/20 12/07/20 Rx cholecalciferol (vitamin D3) 50 4,000 unit PO QAM cap 10/18/20 12/07/20 History mcg (2,000 unit) capsule (Vitamin D3) prednisolone acetate 1 % eye 1 drp OPB TID 11/12/20 12/07/20 History drops,suspension (Pred Forte) aripiprazole 5 mg tablet 5 mg PO DAILY 12/07/20 12/07/20 History trazodone 50 mg tablet 50 mg PO HS 12/07/20 12/07/20 History Allergies Allergy/AdvReac Type Severity Reaction Status Date / Time gluten Allergy Severe CELIAC'S Verified 12/02/20 14:49 DISEASE Penicillins Allergy Severe ANAPHYLAXIS Verified 12/02/20 14:49 shellfish derived Allergy Severe ANAPHYLAXIS Verified 12/02/20 14:49 apple Allergy Intermediate THROAT Verified 12/02/20 14:49 SWELLS house dust Allergy Intermediate Hives Verified 12/02/20 14:49 oxcarbazepine Allergy Intermediate Rash,hives Verified 12/02/20 14:49 and itchiness. lactose AdvReac Intermediate Gatrointestinal Verified 12/02/20 14:49 Upset sumatriptan [From Imitrex] AdvReac Intermediate INTENSIFIES Verified 12/02/20 14:49 HEADACHE Past Med/Surg History Medical History Acid reflux disease (~2013) Allergic rhinitis Asthma . Borderline personality disorder . Celiac disease Chronic joint pain Depression Diabetic gastroparesis associated with type 1 diabetes mellitus (~2016) DKA (diabetic ketoacidoses) Generalized anxiety disorder Gilbert's syndrome Irritable bowel syndrome with constipation Lumbar radiculopathy Migraines Osteopenia Osteoporosis Type I diabetes mellitus (~2013) Followed by Endocrinology Surgical History History of cataract surgery bilateral History of colonoscopy History of esophagogastroduodenoscopy (EGD) History of strabismus surgery right Family History Mother Alcohol abuse Adult celiac disease Osteoporosis Seizure Celiac disease Father Skin cancer squamous cell Drug abuse Alcohol abuse Anxiety Seizure Grandfather Alcohol abuse Uncle Drug abuse Alcohol abuse Brother Drug abuse Unknown Cancer Grandmother Diabetes Colorectal cancer Celiac disease Grandmother Type 1 diabetes Other Bipolar 1 disorder No family history of adverse response to anesthesia Denies family history of Ovarian cancer Prostate cancer Myocardial infarction Breast cancer Lung cancer Hypertension Social History Smoking Status: Former smoker Age Started Using Tobacco: 18; Age Quit Using Tobacco: 20; Cigarettes Per Day: 1 per month; Second Hand Exposure: Yes; Hx Alcohol Use: No Hx Substance Use: No Preferred Language: Vietnamese Communication Ability: Effective Hearing Ability: Normal Cephalometric Technician Required: No Beliefs That Will Affect Care: None and Spiritual Spiritual Healthcare Pract ices: Protective bracelet marital status: Single Current Living Situation: Alone Current Living Situation Comment: friend current occupational status: employed current occupation: [employer] Feels Safe at Home: Yes Childhood Exposure to Second-Hand Smoke: Yes caffeine: Yes Dental Care, Regularly: Yes Physical Activity Frequency: 3-4 Times per Week Physical Activity Frequency Comment: walks Seatbelt Use: always Sunscreen Use: Yes (when in the sun for an extended time) Assistive Devices: None Review of Systems See HPI for pertinent positives & negatives. and A total of 10 systems reviewed and were otherwise negative Physical Exam Vital Signs Vital Signs - 24 hr 12/07/20 16:30 Temperature 36.9 C Temperature Source Temporal Artery Scan Pulse Rate 74 Respiratory Rate 20 Respiratory Effort / Characteristics Non-Labored Spontaneous Respiratory Depth Normal Respiratory Pattern Regular Blood Pressure 89/64 L Blood Pressure Mean 72 Blood Pressure Position Sitting Pulse Oximetry 96 Oxygen Delivery Method Room Air Sepsis Recent Fever Within 48 Hours No Sepsis New/Unexplained Change in Mental Status N/A Sepsis Action Taken by Nursing No Action Required GENERAL: Wearing glasses and a mask. NAD, non-toxic. EYE EXAM: Normal conjunctiva. PERRL, no anisocoria and EOM's grossly intact w/o pain. NECK: Supple, no nuchal rigidity, no adenopathy, non-tender. No signs of meningismus. LUNGS: Clear to auscultation. Normal chest wall mechanics. HEART: NSR, no MRG. ABDOMEN: Abdomen soft, non-tender, normo-active bowel sounds, no masses, no rebound or guarding. BACK: No CVA TTP. SKIN: No rashes and no bruising. UPPER EXTREMITIES: Upper extremities are grossly normal. LOWER EXTREMITIES: Grossly normal, no edema. NEURO EXAM: A&O x3, cranial nerves II-XII grossly intact, normal speech, moves all 4 extremities on command w/o issue. Psych: Positive SI with plan, negative HI or AVH. Course Administered Medications Insulin Aspart (Insulin Aspart 100 Units/Ml 3 Ml Pen) 0 units [facility] Stop: 01/06/21 21:59 Last Admin: 12/07/20 22:41 Dose: 4 units Documented by: [id number] Cosigned by: [id number] Propranolol HCl (Propranolol Hcl 60 Mg [place]) [address] [facility] Stop: 01/06/21 21:44 Last Admin: 12/07/20 22:47 Dose: Not Given Documented by: [id number] Admin: 12/07/20 22:20 Dose: Not Given Documented by: [id number] Trazodone HCl (Trazodone Hcl 50 Mg Tab) [address] [facility] Stop: 01/06/21 21:44 Last Admin: 12/07/20 22:47 Dose: Not Given Documented by: [id number] Admin: 12/07/20 22:21 Dose: 50 mg Documented by: [id number] Medical Decision Making Differential Diagnosis Mood disorder, infection, hypoglycemia, electrolyte abnormalities, cardiac sources, intracerebral event, toxicologic, trauma, neurologic, as well as other pathologies. Medical Records Attestation: I reviewed the patient's medical records. Home Medications Current Medication List: was personally reviewed by me Laboratory Data Attestation: I reviewed the patient's lab results. Result diagrams: 12/07/20 17:56 12/07/20 17:56 Lab Results 12/07/20 12/07/20 12/07/20 Range/Units 17:14 17:14 17:14 WBC (4.8-10.8) K/uL RBC (4.2-5.4) M/uL Hgb (12.0-16.0) g/dL Hct (37-47) % MCV (80-100) fL MCH (25-34) pg MCHC (32-36) g/dL RDW Std Deviation (36.4-46.3) fL RDW Coeff of Keanu (11.5-14.5) % Plt Count (130-400) K/uL MPV (7.4-10.4) fL Immature Gran % (Auto) % Neut % (Auto) % Lymph % (Auto) % [place] % (Auto) % Eos % (Auto) % Baso % (Auto) % Neut # (Auto) (1.4-6.5) K/uL Lymph # (Auto) (1.2-3.4) K/uL [place] # (Auto) (0.11-0.59) K/uL Eos # (Auto) (0-0.5) K/uL Baso # (Auto) (0-0.2) K/uL Immature Gran # (Auto) (0.00-0.02) K/uL Sodium (136-145) mmol/L Potassium (3.5-5.1) mmol/L Chloride (98-107) mmol/L Carbon Dioxide (21-32) mmol/L Anion Gap (3-11) BUN (7-18) mg/dl Creatinine (0.6-1.2) mg/dl Est Cr Clr Drug Dosing ml/min Est GFR ( Amer) ml/min Est GFR (Non-Af Amer) ml/min BUN/Creatinine Ratio (10-20) Glucose (70-99) mg/dl Calcium (8.5-10.1) mg/dl Total Bilirubin (0.2-1) mg/dl AST (15-37) U/L ALT (12-78) U/L Alkaline Phosphatase (45-117) U/L Total Protein (6.4-8.2) gm/dl Albumin (3.4-5.0) gm/dl Globulin (2.5-4.0) gm/dl Albumin/Globulin Ratio (0.9-2) TSH (0.300-4.500) uIu/ml Urine Color Yellow Urine Appearance Clear (Clear) Urine pH 8.5 H (4.5-7.5) Ur Specific [place] 1.006 (1.000-1.030) Urine Protein Negative (Negative) Urine Glucose (UA) Negative (Negative) Urine Ketones Negative (Negative) Urine Blood Negative (Negative) Urine Nitrite Negative (Negative) Urine Bilirubin Negative (Negative) Urine Urobilinogen Negative (Negative) Ur Leukocyte Esterase Trace H (Negative) Urine WBC (Auto) 1-5 (0-5) /hpf Urine RBC (Auto) 0-4 (0-4) /hpf U Hyaline Cast (Auto) 0 (0-5) /lpf U Epithel Cells (Auto) 5-10 H (0-5) /lpf Urine Bacteria (Auto) Negative (Negative) Urine Test Negative (Negative) Salicylates (2.8-20) mg/dl Urine Opiates Screen Neg (Neg) Ur Methadone, Qual Neg (Neg) Acetaminophen (10-30) ug/ml Urine Barbiturates Neg (Neg) Ur Phencyclidine (PCP) Neg (Neg) U Amphetamin/Meth Scrn Neg (Neg) MDMA (Ecstasy) Screen Neg (Neg) U Benzodiazepines Scrn Neg (Neg) Ur Cocaine Metabolite Neg (Neg) U Marijuana (THC) Screen Neg (Neg) Ethyl Alcohol mg/dL (0-3) mg/dl COVID-19 Eval Order SARS-CoV-2, RNA, NAAT (NEGATIVE) 12/07/20 12/07/20 12/07/20 Range/Units 17:56 17:56 17:56 WBC 6.58 (4.8-10.8) K/uL RBC 4.15 L (4.2-5.4) M/uL Hgb 12.9 (12.0-16.0) g/dL Hct 37.8 (37-47) % MCV 91.1 (80-100) fL MCH 31.1 (25-34) pg MCHC 34.1 (32-36) g/dL RDW Std Deviation 40.1 (36.4-46.3) fL RDW Coeff of Keanu 11.9 (11.5-14.5) % Plt Count 318 (130-400) K/uL MPV 10.5 H (7.4-10.4) fL Immature Gran % (Auto) 0.2 % Neut % (Auto) 64.6 % Lymph % (Auto) 25.2 % [place] % (Auto) 9.1 % Eos % (Auto) 0.6 % Baso % (Auto) 0.3 % Neut # (Auto) 4.25 (1.4-6.5) K/uL Lymph # (Auto) 1.66 (1.2-3.4) K/uL [place] # (Auto) 0.60 H (0.11-0.59) K/uL Eos # (Auto) 0.04 (0-0.5) K/uL Baso # (Auto) 0.02 (0-0.2) K/uL Immature Gran # (Auto) 0.01 (0.00-0.02) K/uL Sodium 140 (136-145) mmol/L Potassium 4.6 (3.5-5.1) mmol/L Chloride 109 H (98-107) mmol/L Carbon Dioxide 27 (21-32) mmol/L Anion Gap 3.0 (3-11) BUN 8 (7-18) mg/dl Creatinine 0.69 (0.6-1.2) mg/dl Est Cr Clr Drug Dosing 106.7 ml/min Est GFR ( Amer) 139.2 ml/min Est GFR (Non-Af Amer) 120.1 ml/min BUN/Creatinine Ratio 11.0 (10-20) Glucose 94 (70-99) mg/dl Calcium 9.7 (8.5-10.1) mg/dl Total Bilirubin 1.4 H (0.2-1) mg/dl AST 11 L (15-37) U/L ALT 16 (12-78) U/L Alkaline Phosphatase 62 (45-117) U/L Total Protein 7.5 (6.4-8.2) gm/dl Albumin 3.9 (3.4-5.0) gm/dl Globulin 3.6 (2.5-4.0) gm/dl Albumin/Globulin Ratio 1.1 (0.9-2) TSH 1.350 (0.300-4.500) uIu/ml Urine Color Urine Appearance (Clear) Urine pH (4.5-7.5) Ur Specific [place] (1.000-1.030) Urine Protein (Negative) Urine Glucose (UA) (Negative) Urine Ketones (Negative) Urine Blood (Negative) Urine Nitrite (Negative) Urine Bilirubin (Negative) Urine Urobilinogen (Negative) Ur Leukocyte Esterase (Negative) Urine WBC (Auto) (0-5) /hpf Urine RBC (Auto) (0-4) /hpf U Hyaline Cast (Auto) (0-5) /lpf U Epithel Cells (Auto) (0-5) /lpf Urine Bacteria (Auto) (Negative) Urine Test (Negative) Salicylates < 1.7 L (2.8-20) mg/dl Urine Opiates Screen (Neg) Ur Methadone, Qual (Neg) Acetaminophen < 2 L (10-30) ug/ml Urine Barbiturates (Neg) Ur Phencyclidine (PCP) (Neg) U Amphetamin/Meth Scrn (Neg) MDMA (Ecstasy) Screen (Neg) U Benzodiazepines Scrn (Neg) Ur Cocaine Metabolite (Neg) U Marijuana (THC) Screen (Neg) Ethyl Alcohol mg/dL (0-3) mg/dl COVID-19 Eval Order SARS-CoV-2, RNA, NAAT (NEGATIVE) 12/07/20 12/07/20 12/07/20 Range/Units 17:56 18:08 18:08 WBC (4.8-10.8) K/uL RBC (4.2-5.4) M/uL Hgb (12.0-16.0) g/dL Hct (37-47) % MCV (80-100) fL MCH (25-34) pg MCHC (32-36) g/dL RDW Std Deviation (36.4-46.3) fL RDW Coeff of Keanu (11.5-14.5) % Plt Count (130-400) K/uL MPV (7.4-10.4) fL Immature Gran % (Auto) % Neut % (Auto) % Lymph % (Auto) % [place] % (Auto) % Eos % (Auto) % Baso % (Auto) % Neut # (Auto) (1.4-6.5) K/uL Lymph # (Auto) (1.2-3.4) K/uL [place] # (Auto) (0.11-0.59) K/uL Eos # (Auto) (0-0.5) K/uL Baso # (Auto) (0-0.2) K/uL Immature Gran # (Auto) (0.00-0.02) K/uL Sodium (136-145) mmol/L Potassium (3.5-5.1) mmol/L Chloride (98-107) mmol/L Carbon Dioxide (21-32) mmol/L Anion Gap (3-11) BUN (7-18) mg/dl Creatinine (0.6-1.2) mg/dl Est Cr Clr Drug Dosing ml/min Est GFR ( Amer) ml/min Est GFR (Non-Af Amer) ml/min BUN/Creatinine Ratio (10-20) Glucose (70-99) mg/dl Calcium (8.5-10.1) mg/dl Total Bilirubin (0.2-1) mg/dl AST (15-37) U/L ALT (12-78) U/L Alkaline Phosphatase (45-117) U/L Total Protein (6.4-8.2) gm/dl Albumin (3.4-5.0) gm/dl Globulin (2.5-4.0) gm/dl Albumin/Globulin Ratio (0.9-2) TSH (0.300-4.500) uIu/ml Urine Color Urine Appearance (Clear) Urine pH (4.5-7.5) Ur Specific [place] (1.000-1.030) Urine Protein (Negative) Urine Glucose (UA) (Negative) Urine Ketones (Negative) Urine Blood (Negative) Urine Nitrite (Negative) Urine Bilirubin (Negative) Urine Urobilinogen (Negative) Ur Leukocyte Esterase (Negative) Urine WBC (Auto) (0-5) /hpf Urine RBC (Auto) (0-4) /hpf U Hyaline Cast (Auto) (0-5) /lpf U Epithel Cells (Auto) (0-5) /lpf Urine Bacteria (Auto) (Negative) Urine Test (Negative) Salicylates (2.8-20) mg/dl Urine Opiates Screen (Neg) Ur Methadone, Qual (Neg) Acetaminophen (10-30) ug/ml Urine Barbiturates (Neg) Ur Phencyclidine (PCP) (Neg) U Amphetamin/Meth Scrn (Neg) MDMA (Ecstasy) Screen (Neg) U Benzodiazepines Scrn (Neg) Ur Cocaine Metabolite (Neg) U Marijuana (THC) Screen (Neg) Ethyl Alcohol mg/dL < 3.0 (0-3) mg/dl COVID-19 Eval Order Covid19 IDNow [facility]MD[facility] SARS-CoV-2, RNA, NAAT NEGATIVE (NEGATIVE) MDM Narrative Patient was seen due to concern for SI with plan. The patient had thought of overdosing on Zofran. The patient does not take anything inappropriate today. The patient has had worsening thoughts of SI with plan due to increasing work- related stressors. The patient has had okay appetite but poor sleep. Patient does live with her landlady and does potentially have access to guns. Patient denies any HI or AVH. Patient is currently working. Patient has had some changes in medications but without improvement in symptoms. Patient did have blood work completed was deemed medically cleared and was seen and evaluated by the social work case manager. Referral was made and the patient was admitted to [facility] for voluntary inpatient treatment. Impression & Plan Depression with suicidal ideation Discharge Plan Visit Data Chief Complaint: Mental Health Evaluation Stated Complaint: MENTAL HEALTH EVAL ED Provider: Ryder Bryant Discharge Problem: Depression with suicidal ideation Patient Disposition: Admitted As Inpatient Discharge Instructions Interventions: ED Discharge Assessment Last Done: 12/07/20 20:52
[2020-12-07 17:27] LABS: Appearance Urine Clear (Clear); Bacteria Urine Automated Negative (Negative); Bilirubin Urine Negative (Negative); Blood Urine Negative (Negative); Cast Urine Automated 0 /lpf (0-5); Color Urine Yellow; Glucose Urine UA Negative (Negative); Ketones Urine Negative (Negative); Leukocyte Esterase Urine Trace (Negative); Nitrite Urine Negative (Negative); Protein Urine Negative (Negative); RBC Urine Automated 0-4 /hpf (0-4); Specific Gravity Urine 1.006 (1.000-1.030); Urobilinogen Urine Negative (Negative); pH Urine 8.5 (4.5-7.5)
[2020-12-07 17:29] LABS: Pregnancy Test, Urine Negative (Negative)
[2020-12-07 17:59] LABS: Amphetamines+Metham, Urine Neg (Neg); Barbiturates, Urine Neg (Neg); Benzodiazepine, Urine Neg (Neg); Cocaine, Urine Neg (Neg); MDMA (Ecstacy), Urine Neg (Neg); Methadone, Urine Neg (Neg); Opiate, Urine Neg (Neg); Phencyclidine, Urine Neg (Neg)
[2020-12-07 18:10] LABS: Basophils # (auto) 0.02 K/uL (0-0.2); Basophils % (auto) 0.3 %; Eosinophils # (auto) 0.04 K/uL (0-0.5); Eosinophils % (auto) 0.6 %; Hematocrit (blood only) 37.8 % (37-47); Hemoglobin 12.9 g/dL (12.0-16.0); Immature Granulocytes # (auto) 0.01 K/uL (0.00-0.02); Immature Granulocytes % (auto) 0.2 %; Lymphocytes # (auto) 1.66 K/uL (1.2-3.4); Lymphocytes % (auto) 25.2 %; Mean Corpuscular Hemoglobin 31.1 pg (25-34); Mean Corpuscular Hgb Conc 34.1 g/dL (32-36); Mean Corpuscular Volume 91.1 fL (80-100); Mean Platelet Volume 10.5 fL (7.4-10.4); Monocytes % (auto) 9.1 %; Neutrophils # (auto) 4.25 K/uL (1.4-6.5); Neutrophils % (auto) 64.6 %; Platelet Count 318 K/uL (130-400); RDW Coefficient of Variation 11.9 % (11.5-14.5); RDW Standard Deviation 40.1 fL (36.4-46.3); Red Blood Count 4.15 M/uL (4.2-5.4); White Blood Count 6.58 K/uL (4.8-10.8)
[2020-12-07 18:26] LABS: Albumin Level 3.9 gm/dl (3.4-5.0); Calcium 9.7 mg/dl (8.5-10.1); Creatinine Clr Calc Pharmacy 106.7 ml/min; Est GFR (African American) 139.2 ml/min; Est GFR (Non-African American) 120.1 ml/min; Potassium 4.6 mmol/L (3.5-5.1)
[2020-12-07 18:37] LABS: Albumin Globulin Ratio 1.1 (0.9-2); Bilirubin,Total 1.4 mg/dl (0.2-1); Globulin 3.6 gm/dl (2.5-4.0); Thyroid Stimulating Hormone 1.35 uIu/ml (0.300-4.500); Total Protein 7.5 gm/dl (6.4-8.2)
[2020-12-07 18:38] LABS: Salicylate < 1.7 mg/dl (2.8-20)
[2020-12-07 18:39] LABS: Acetaminophen < 2 ug/ml (10-30)
[2020-12-07] MEDS ORDERED: ALUMINUM/MAGNESIUM SUSP 30 ML UDC PO PRN (20:30)
[2020-12-07] MEDS ORDERED: BISMUTH SUBSALICYLATE LIQD 236 ML PO PRN (20:30)
[2020-12-07] MEDS ORDERED: hydrOXYzine HCl 25 MG TAB PO PRN (20:30)
[2020-12-07] MEDS ORDERED: SODIUM CHLORIDE 0.65% NA SOLN 45 ML (OCEAN) PRN (20:30)
[2020-12-07] MEDS ORDERED: MAGNESIUM HYDROXIDE SUSP 30 ML UDC PO PRN (20:30)
[2020-12-07] MEDS ORDERED: ACETAMINOPHEN 325 MG TAB PO PRN (20:30)
[2020-12-07] MEDS ORDERED: CYCLOBENZAPRINE HCL 5 MG TAB PO PRN (20:33)
[2020-12-07] MEDS ORDERED: LORazepam 0.5 MG TAB PO PRN (20:33)
[2020-12-07] MEDS ORDERED: EPINEPHrine INJ 1 MG/ML AMP IM PRN (21:27)
[2020-12-07] MEDS ORDERED: LINACLOTIDE 145 MCG CAPSULE PO PRN (21:30)
[2020-12-07] MEDS ORDERED: ONDANSETRON 8MG OD TAB PO PRN (21:31)
[2020-12-07] MEDS ORDERED: PHARMACY GLYCEMIC MGMT CONSULT PRN (21:32)
[2020-12-07] MEDS ORDERED: GLUCOSE 40% GEL 15 GM TUBE PO PRN (21:45)
[2020-12-07] MEDS ORDERED: GLUCOSE 10 TABS/TUBE PO PRN (21:45)
[2020-12-07] MEDS ORDERED: DEXTROSE 50% 50 ML SYRINGE IV PRN (21:45)
[2020-12-07] MEDS ORDERED: GLUCAGON FOR INJ 1 MG VIAL IM PRN (21:45)
[2020-12-07] MEDS ORDERED: INSULIN GLARGINE SOLOSTAR 100 UNITS/ML 3 ML PEN SC SCH (22:00)
[2020-12-07] MEDS: PROPRANOLOL HCL 60 MG LA CAP PO SCH ×2 (22:20→22:47)
[2020-12-07] MEDS: traZODone HCL 50 MG TAB PO SCH ×2 (22:21→22:47)
[2020-12-07] MEDS: INSULIN ASPART 100 UNITS/ML 3 ML PEN SC SCH (22:41)
[2020-12-08] MEDS: CARBOHYDRATES FOR HYPOGLYCEMIA PO PRN (03:13)
[2020-12-08] MEDS ORDERED: ARIPiprazole 5 MG TAB PO SCH (09:00)
[2020-12-08] MEDS: CHOLECALCIFEROL 1,000 UNITS 25 MCG TAB PO SCH (09:12)
[2020-12-08] MEDS: PANTOprazole 40 MG TAB PO SCH (09:12)
[2020-12-08] MEDS: FLUTICASONE FUROATE 200MCG 14 PUFFS/INHALER INH SCH ×2 (09:13→15:06)
[2020-12-08] MEDS: INSULIN GLARGINE SOLOSTAR 100 UNITS/ML 3 ML PEN SC SCH (09:17)
[2020-12-08] MEDS: INSULIN ASPART 100 UNITS/ML 3 ML PEN SC SCH ×4 (09:27→20:58)
--- NOTE | 2020-12-08 11:31 | Pharmacy Report ---
Pharmacy Glycemic Short Note 2 - Date of Service December 08, 2020 - Glycemic Short BSG Results (Last 24 hours): 12/07/20 12/08/20 17:56 08:55 Glucose 94 POC Glucose 217 H OUTPATIENT ANTIDIABETIC REGIMEN: * Novolog insulin pump ~ 20 units basal/day, CF 45-50, Carb ratio 1:8 ASSESSMENT: * 25 year old type 1 diabetic, dx at age 13, PMH eating disorders, depression, admitted for suicidal ideation. * Patient's latest visit with endocrinology 12/02/20. * Dexcom still connected with blood sugar readings going to patient's phone, nursing aware of need to do accuchecks for our administration of insulin per policy. * Patient took Lantus 19 units CHIROPRACTOR ASSISTANT yesterday and removed pump, will continue on daily Lantus dosing for basal needs. * CF/CR doses as with pump and adjust as needed. PLAN FOR INPATIENT GLYCEMIC CONTROL: * Hold outpatient insulin pump * Basal insulin * Lantus 20 units SQ daily * Bolus insulin * NovoLog per scale ACHS or Q6hrs while NPO * Goal Range: Low 110 mg/dL - High 140 mg/dL * Correction Factor: 50 mg/dL/unit * Nutritional / Prandial insulin per carb ratio of 1 unit per 8 grams CHO consumed PLAN FOR DISCHARGE: * continue to follow with endocrinology as outpatient.
[2020-12-08] MEDS ORDERED: KETOROLAC TROMETHAMINE 10 MG TABLET PO PRN (13:42)
--- NOTE | 2020-12-08 14:37 | History & Physical ---
Date of Service December 08, 2020 Impression / Recommendations Impression 25 yo non-binary genetic female with depressed mood and recurrent suicidal ideation due to depression superimposed on underlying borderline personality disorder. Patient on high risk medications should they overdose and has limited support system outside of treatment team. (1) Depression with suicidal ideation: (2) Borderline personality disorder: (3) Type I diabetes mellitus: Diabetes mellitus complication status: with other specified complication Qualified Code(s): E10.69 - Type 1 diabetes mellitus with other specified complication 12/08/20--The patient was admitted to the [facility] ([facility] mental [facility] unit) on q15 min checks (behavioral with suicide precautions) for safety. The patient will participate in group, recreational, and milieu therapies and will be offered additional individual and family sessions as clinically appropriate. They are refusing metabolic screening labs. Reprots HgbA1c as outpatient endocrine last month. risks/benefits/alternatives reviewed re: various augmentation strategies vs restart lithium vs trial of Trilafon 2 mg Bid as recommended by outpatient prescriber. Patient considering options. Insulin pump removed, glycemic management by pharmacy, behavioral douglas around dexcom/hospital policies to avoid splitting. Inventory Assets Strengths: connected to outpatient providers, knowledgeable re: diabetes Needs: decision around work Risk Factors Assessment : Yes Do You Have Access To A Gun?: No Health Problems: Yes Mental Health Diagnoses: Yes Substance Use Disorders: No Previous Attempt: Yes (gesture) Protective Factors Assessment Employed: Yes Good Rapport with Provider: Yes Psychiatric History Identifying Data MAYA MEYERS is a 25-year-old F who currently lives in [place] alone, has a history of recent hospitalizations for SI, and was admitted on 12/07/20 20:30 on a 201 voluntary commitment for same. Identifies as non-binary "Minh" and prefers they/them pronouns. Chief Complaint "I've had obsessive thoughts about suicide since I was 8 year old". History of Present Illness Last admitted to 07/16-07/20/20 for suicidal ideation with starting to carry out 3 step suicide plan. Patient is an insulin dependent diabetic with an insulin pump. They starts by counting pills, considering taking extra Zofran to keep from vomiting before ingesting i medications that have more cardiovascular side effects--like propranolol. 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 Reports being mis-gendered by staff there now they are "out". In general when asked about appetite, sleep, energy, states "everything is a shit show". Reports concerns about ability to use Dexcom continuous glucose monitoring while on unit. Notes longstanding issues with focus are worse. Feels they can only focus well for 2-3 hours on caffeine, admitted poor PO intake, sometimes restricting. Denies purging. Apparently did report seeing shadows in peripheral vision at times. Relates that lithium is one of few helpful meds in the past and disappointed it started to affect TSH (stopped last month for TSH >4) and prescriber attempted to replace with Rexulti but insurance required Abilify. Patient relates feeling more suicidal on Abilify and increase in overall depression and self-discontinued it just prior to her last med check. Also endorses high level of anxiety "8/10 for like ever" with breakthrough restlessness and chest discomfort several times a week. Also reports lack of focus alternating with hyperfocus, amotivation toward less preferred tasks, inability to finish tasks they start. Had testing in high school for dyscalculia and identified as having some issues with working memory, considering retesting. Past Psychiatric History Previous Psych History: bipolar vs borderline personality disorder (identifies with latter, mood dx when younger) Outpatient Services: FARHANA Osorio, therapist Rochelle and NAVDEEP Alfred,PhD at psych clinic. Previous Psych Admissions: per last admission: During 2014 hospitalization here, she was diagnosed with bipolar 1, anxiety NOS with symptoms of NESHA, panic, and PTSD that did not meet full criteria for anyone condition, and narcotic and cannabis abuse in remission. During her hospitalization last month, she was diagnosed with borderline personality disorder, NESHA, depression, and eating disorder NOS. Current Psychiatric Diagnosis: BPD, NESHA, eating disorder, unspecified and depression Outpatient Services: NAVDEEP Kerns, PhD at the [facility] psychological clinic. Therapist, Cary Levin at the [facility] psychological clinic. ABHISHEK. FARHANA at the [facility]: Ora Previous Psych Admissions: [facility] for 3 days in 2014 for SI. 11/2019 for depression, SI, and SIB. 2012 in [place] for suicide attempt by toxic ingestion. Do You Have Access To A Gun?: No History of Previous Suicide Attempt: Yes Describe Attempts in the Past: Overdose 3x, last week, June, and age 15 Past Medication Trials: Lamotrigine -started here in 2014 Zolpidem Geodon Lunesta Depakote Trileptal -allergic Lorazepam -as needed for anxiety [place] Lamotrigine Sertraline Hydroxyzine for sleep buspar Current Psychiatric Diagnosis: Borderline Personality Disorder, NESHA Do You Have Access To A Gun?: No Describe Attempts in the Past: 07/2018 - "step one of plan" and again on 07/2020 step one of plan Do You Have Access To A Gun?: No Describe Attempts in the Past: OD in the past Additional Notes: confirmed history as above Allergies Allergy/AdvReac Type Severity Reaction Status Date / Time gluten Allergy Severe CELIAC'S Verified 12/02/20 14:49 DISEASE Penicillins Allergy Severe ANAPHYLAXIS Verified 12/02/20 14:49 shellfish derived Allergy Severe ANAPHYLAXIS Verified 12/02/20 14:49 apple Allergy Intermediate THROAT Verified 12/02/20 14:49 SWELLS house dust Allergy Intermediate Hives Verified 12/02/20 14:49 oxcarbazepine Allergy Intermediate Rash,hives Verified 12/02/20 14:49 and itchiness. lactose AdvReac Intermediate Gatrointestinal Verified 12/02/20 14:49 Upset sumatriptan [From Imitrex] AdvReac Intermediate INTENSIFIES Verified 12/02/20 14:49 HEADACHE Home Medications Medication Instructions Recorded Confirmed Type lorazepam 0.5 mg tablet (Ativan) 0.5 mg PO DAILY PRN 01/21/18 12/07/20 History insulin glargine 100 unit/mL (3 19 units SQ DAILY PRN ml 11/26/18 12/07/20 History mL) subcutaneous pen (Basaglar KwikPen U-100 Insulin) inhalational spacing device #1 ea 03/27/19 12/07/20 Rx (Aerochamber MV) fluticasone propionate 220 1 puff INHALATION QAM 04/25/19 12/07/20 History mcg/actuation HFA aerosol inhaler (Flovent HFA) epinephrine 0.3 mg/0.3 mL 0.3 mg IM DIRECTED PRN 12/27/19 12/07/20 History injection, auto-injector insulin pump controller 12/27/19 12/07/20 History omeprazole 40 mg capsule,delayed 40 mg PO QAM 02/19/20 12/07/20 History release galcanezumab-gnlm 120 mg/mL 120 mg SQ MONTHLY #1 ml 04/05/20 12/07/20 Rx subcutaneous pen injector (Emgality Pen) ketorolac 10 mg tablet 10 mg PO Q6H PRN #12 tab 04/05/20 12/07/20 Rx cyclobenzaprine 5 mg tablet 5 mg PO BID PRN #20 tab 06/15/20 12/07/20 Rx acetone (urine) test (Ketostix) #100 ea 06/16/20 12/07/20 Rx insulin aspart U-100 100 unit/mL See Rx Instructions SQ DAILY #30 ml 06/16/20 12/07/20 Rx subcutaneous solution (Novolog U-100 Insulin aspart) linaclotide 145 mcg capsule 145 mcg PO DAILY PRN 07/16/20 12/07/20 History (Linzess) sertraline 100 mg tablet 200 mg PO QAM #42 tab 07/20/20 12/07/20 Rx glucagon HCl 1 mg solution for 1 mg IM Q20M PRN #1 ea 08/05/20 12/07/20 Rx injection (Glucagon (HCl) Emergency Kit) ondansetron HCl 8 mg tablet 8 mg PO DAILY PRN #30 tab 08/29/20 12/07/20 Rx propranolol 60 mg capsule,24 60 mg PO HS #90 cap 08/29/20 12/07/20 Rx hr,extended release comp.stocking,thigh,short,smal #2 ea 09/21/20 12/07/20 Rx cholecalciferol (vitamin D3) 50 4,000 unit PO QAM cap 10/18/20 12/07/20 History mcg (2,000 unit) capsule (Vitamin D3) prednisolone acetate 1 % eye 1 drp OPB TID 11/12/20 12/07/20 History drops,suspension (Pred Forte) trazodone 50 mg tablet 50 mg PO HS 12/07/20 12/07/20 History perphenazine 2 mg tablet 2 mg PO BID 12/08/20 12/08/20 History Family History Family History of: Depression and Alcoholism/Drug Abuse Alcohol History Hx of Alcohol Use Over the Past 12 Months: No AUDIT Total Score: 1 Smoking Use Have You Smoked or Used Tobacco Products in the Last 30 Days: No tobacco type: cigarettes Smoking Status: Former smoker Substance History Hx of Prescription Med Misuse Over the Past 12 Months: No Hx of Over the Counter Med Misuse Over the Past 12 Months: No Hx of Inhalent Misuse Over the Past 12 Months: No Hx of Organic Substance Use Over the Past 12 Months: No Hx of Illegal Substances/Street Drug Use Over Past 12 Months: No Problems as a Result of Past Substance Use: None Identified Personal History Living Arrangements: Apartment Highest Grade Completed: Vocational Training Employment Status: [employer] Employed Marital Status: Single Number Of Children: 0 Beliefs That Will Affect Care: None and Spiritual Current Legal Problems: No Hx Traumatic Life Events: Yes Patient History Medical History Acid reflux disease (~2013) Allergic rhinitis Asthma . Borderline personality disorder . Celiac disease Chronic joint pain Depression Diabetic gastroparesis associated with type 1 diabetes mellitus (~2016) DKA (diabetic ketoacidoses) Generalized anxiety disorder Gilbert's syndrome Irritable bowel syndrome with constipation Lumbar radiculopathy Migraines Osteopenia Osteoporosis Type I diabetes mellitus (~2013) Followed by Endocrinology Surgical History History of cataract surgery bilateral History of colonoscopy History of esophagogastroduodenoscopy (EGD) History of strabismus surgery right Family History Mother Alcohol abuse Adult celiac disease Osteoporosis Seizure Celiac disease Father Skin cancer squamous cell Drug abuse Alcohol abuse Anxiety Seizure Grandfather Alcohol abuse Uncle Drug abuse Alcohol abuse Brother Drug abuse Unknown Cancer Grandmother Diabetes Colorectal cancer Celiac disease Grandmother Type 1 diabetes Other Bipolar 1 disorder No family history of adverse response to anesthesia Denies family history of Ovarian cancer Prostate cancer Myocardial infarction Breast cancer Lung cancer Hypertension Social History Smoking Status: Former smoker Age Started Using Tobacco: 18; Age Quit Using Tobacco: 20; Cigarettes Per Day: 1 per month; Second Hand Exposure: Yes; Hx Alcohol Use: No Hx Substance Use: No Preferred Language: Vietnamese Communication Ability: Effective Hearing Ability: Normal Flux Mixer Required: No Beliefs That Will Affect Care: None and Spiritual Spiritual Healthcare Practices: Protective bracelet marital status: Single Current Living Situation: Alone Current Living Situation Comment: friend current occupational status: employed current occupation: [employer] Feels Safe at Home: Yes Childhood Exposure to Second-Hand Smoke: Yes caffeine: Yes Dental Care, Regularly: Yes Physical Activity Frequency: 3-4 Times per Week Physical Activity Frequency Comment: walks Seatbelt Use: always Sunscreen Use: Yes (when in the sun for an extended time) Assistive Devices: None Review of Systems Review of Systems: All systems reviewed & are unremarkable except as noted in HPI & below Physical Exam Psychiatric: Orientation: alert and oriented x 3 Apperance: appropriately dressed and appropriately groomed Eye Contact: good eye contact Motor Behavior: no abnormal motor movements Speech: normal rate/rhythm/volume of speech Affect: euthymic affect Mood: + depressed mood Thought Process: goal directed thought process Thought Content: reality based without delusions Suicidal Thoughts: denies suicidal thoughts Homicidal Thoughts: denies homicidal thoughts Hallucinations: no auditory hallucinations and no visual hallucinations Cognition: attention grossly intact and language grossly intact Estimated Intelligence: consistent with education level Insight: + limited insight Judgement: + limited judgement Vital Signs (Past 24 Hours): Last Vital Signs Temp 36.6 C 12/08/20 06:45 Pulse 93 H 12/08/20 06:46 Resp 16 12/08/20 06:45 BP 81/52 L 12/08/20 06:46 Pulse Ox 98 12/07/20 21:08 Exam Statement: A physical exam was performed in the ED by Dr. Bryant for the purposes of medical clearance. I accept that physical as correct and adequate for the purposes of the inpatient physical exam. Results & Data ([facility]) Laboratory Results Laboratory Results - last 24 hr 12/07/20 12/07/20 12/07/20 17:14 17:14 17:14 WBC RBC Hgb Hct MCV MCH MCHC RDW Std Deviation RDW Coeff of Keanu Plt Count MPV Immature Gran % (Auto) Neut % (Auto) Lymph % (Auto) [place] % (Auto) Eos % (Auto) Baso % (Auto) Neut # (Auto) Lymph # (Auto) [place] # (Auto) Eos # (Auto) Baso # (Auto) Immature Gran # (Auto) Sodium Potassium Chloride Carbon Dioxide Anion Gap BUN Creatinine Est Cr Clr Drug Dosing Est GFR ( Amer) Est GFR (Non-Af Amer) BUN/Creatinine Ratio Glucose POC Glucose Calcium Total Bilirubin AST ALT Alkaline Phosphatase Total Protein Albumin Globulin Albumin/Globulin Ratio TSH Urine Color Yellow Urine Appearance Clear Urine pH 8.5 H Ur Specific [place] 1.006 Urine Protein Negative Urine Glucose (UA) Negative Urine Ketones Negative Urine Blood Negative Urine Nitrite Negative Urine Bilirubin Negative Urine Urobilinogen Negative Ur Leukocyte Esterase Trace H Urine WBC (Auto) 1-5 Urine RBC (Auto) 0-4 U Hyaline Cast (Auto) 0 U Epithel Cells (Auto) 5-10 H Urine Bacteria (Auto) Negative Urine Test Negative Salicylates Urine Opiates Screen Neg Ur Methadone, Qual Neg Acetaminophen Urine Barbiturates Neg Ur Phencyclidine (PCP) Neg U Amphetamin/Meth Scrn Neg MDMA (Ecstasy) Screen Neg U Benzodiazepines Scrn Neg Ur Cocaine Metabolite Neg U Marijuana (THC) Screen Neg Ethyl Alcohol mg/dL COVID-19 Eval Order SARS-CoV-2, RNA, NAAT 12/07/20 12/07/20 12/07/20 17:56 17:56 17:56 WBC 6.58 RBC 4.15 L Hgb 12.9 Hct 37.8 MCV 91.1 MCH 31.1 MCHC 34.1 RDW Std Deviation 40.1 RDW Coeff of Keanu 11.9 Plt Count 318 MPV 10.5 H Immature Gran % (Auto) 0.2 Neut % (Auto) 64.6 Lymph % (Auto) 25.2 [place] % (Auto) 9.1 Eos % (Auto) 0.6 Baso % (Auto) 0.3 Neut # (Auto) 4.25 Lymph # (Auto) 1.66 [place] # (Auto) 0.60 H Eos # (Auto) 0.04 Baso # (Auto) 0.02 Immature Gran # (Auto) 0.01 Sodium 140 Potassium 4.6 Chloride 109 H Carbon Dioxide 27 Anion Gap 3.0 BUN 8 Creatinine 0.69 Est Cr Clr Drug Dosing 106.7 Est GFR ( Amer) 139.2 Est GFR (Non-Af Amer) 120.1 BUN/Creatinine Ratio 11.0 Glucose 94 POC Glucose Calcium 9.7 Total Bilirubin 1.4 H AST 11 L ALT 16 Alkaline Phosphatase 62 Total Protein 7.5 Albumin 3.9 Globulin 3.6 Albumin/Globulin Ratio 1.1 TSH 1.350 Urine Color Urine Appearance Urine pH Ur Specific [place] Urine Protein Urine Glucose (UA) Urine Ketones Urine Blood Urine Nitrite Urine Bilirubin Urine Urobilinogen Ur Leukocyte Esterase Urine WBC (Auto) Urine RBC (Auto) U Hyaline Cast (Auto) U Epithel Cells (Auto) Urine Bacteria (Auto) Urine Test Salicylates < 1.7 L Urine Opiates Screen Ur Methadone, Qual Acetaminophen < 2 L Urine Barbiturates Ur Phencyclidine (PCP) U Amphetamin/Meth Scrn MDMA (Ecstasy) Screen U Benzodiazepines Scrn Ur Cocaine Metabolite U Marijuana (THC) Screen Ethyl Alcohol mg/dL COVID-19 Eval Order SARS-CoV-2, RNA, NAAT 12/07/20 12/07/20 12/07/20 17:56 18:08 18:08 WBC RBC Hgb Hct MCV MCH MCHC RDW Std Deviation RDW Coeff of Keanu Plt Count MPV Immature Gran % (Auto) Neut % (Auto) Lymph % (Auto) [place] % (Auto) Eos % (Auto) Baso % (Auto) Neut # (Auto) Lymph # (Auto) [place] # (Auto) Eos # (Auto) Baso # (Auto) Immature Gran # (Auto) Sodium Potassium Chloride Carbon Dioxide Anion Gap BUN Creatinine Est Cr Clr Drug Dosing Est GFR ( Amer) Est GFR (Non-Af Amer) BUN/Creatinine Ratio Glucose POC Glucose Calcium Total Bilirubin AST ALT Alkaline Phosphatase Total Protein Albumin Globulin Albumin/Globulin Ratio TSH Urine Color Urine Appearance Urine pH Ur Specific [place] Urine Protein Urine Glucose (UA) Urine Ketones Urine Blood Urine Nitrite Urine Bilirubin Urine Urobilinogen Ur Leukocyte Esterase Urine WBC (Auto) Urine RBC (Auto) U Hyaline Cast (Auto) U Epithel Cells (Auto) Urine Bacteria (Auto) Urine Test Salicylates Urine Opiates Screen Ur Methadone, Qual Acetaminophen Urine Barbiturates Ur Phencyclidine (PCP) U Amphetamin/Meth Scrn MDMA (Ecstasy) Screen U Benzodiazepines Scrn Ur Cocaine Metabolite U Marijuana (THC) Screen Ethyl Alcohol mg/dL < 3.0 COVID-19 Eval [facility] SARS-CoV-2, RNA, NAAT NEGATIVE 12/08/20 12/08/20 08:55 12:42 WBC RBC Hgb Hct MCV MCH MCHC RDW Std Deviation RDW Coeff of Keanu Plt Count MPV Immature Gran % (Auto) Neut % (Auto) Lymph % (Auto) [place] % (Auto) Eos % (Auto) Baso % (Auto) Neut # (Auto) Lymph # (Auto) [place] # (Auto) Eos # (Auto) Baso # (Auto) Immature Gran # (Auto) Sodium Potassium Chloride Carbon Dioxide Anion Gap BUN Creatinine Est Cr Clr Drug Dosing Est GFR ( Amer) Est GFR (Non-Af Amer) BUN/Creatinine Ratio Glucose POC Glucose 217 H 132 H Calcium Total Bilirubin AST ALT Alkaline Phosphatase Total Protein Albumin Globulin Albumin/Globulin Ratio TSH Urine Color Urine Appearance Urine pH Ur Specific [place] Urine Protein Urine Glucose (UA) Urine Ketones Urine Blood Urine Nitrite Urine Bilirubin Urine Urobilinogen Ur Leukocyte Esterase Urine WBC (Auto) Urine RBC (Auto) U Hyaline Cast (Auto) U Epithel Cells (Auto) Urine Bacteria (Auto) Urine Test Salicylates Urine Opiates Screen Ur Methadone, Qual Acetaminophen Urine Barbiturates Ur Phencyclidine (PCP) U Amphetamin/Meth Scrn MDMA (Ecstasy) Screen U Benzodiazepines Scrn Ur Cocaine Metabolite U Marijuana (THC) Screen Ethyl Alcohol mg/dL COVID-19 Eval Order SARS-CoV-2, RNA, NAAT Current Inpatient Medications Current Inpatient Medications: Current Inpatient Medications Acetaminophen (Acetaminophen 325 Mg Tab) 650 mg PO Q4H PRN PRN Reason: Headache or Minor Fever Stop: 01/06/21 20:29 Al Hydrox/Mg Hydrox/Simethicone (Aluminum/Magnesium Susp 30 Ml Udc) 30 ml PO Q4H PRN PRN Reason: GI Upset Stop: 01/06/21 20:29 Cyclobenzaprine HCl (Cyclobenzaprine Hcl 5 Mg Tab) 5 mg PO BID PRN PRN Reason: muscle spasm Stop: 01/06/21 20:32 Dextrose (Dextrose 50% 50 Ml Syringe) 25 - 50 ml IV UD PRN; Protocol PRN Reason: Hypoglycemia Protocol Stop: 01/06/21 21:44 Epinephrine HCl (Epinephrine Inj 1 Mg/Ml Amp) 0.3 mg IM UD PRN PRN Reason: Anaphylaxis Stop: 01/06/21 21:26 Fluticasone Propionate (Fluticasone Hfa 220 Mcg Inhaler) 1 puffs INH QAM RANDOLPH Stop: 01/08/21 08:59 Glucagon (Glucagon For Inj 1 Mg Vial) 1 mg IM UD PRN; Protocol PRN Reason: Hypoglycemia Protocol Stop: 01/06/21 21:44 Glucose (Glucose 40% Gel 15 Gm Tube) 15 - 30 gm PO UD PRN; Protocol PRN Reason: Hypoglycemia Protocol Stop: 01/06/21 21:44 Glucose (Glucose 10 Tabs/Tube) 4 - 8 tabs PO UD PRN; Protocol PRN Reason: Hypoglycemia Protocol Stop: 01/06/21 21:44 Hydroxyzine HCl (Hydroxyzine Hcl 25 Mg Tab) 50 mg PO HSZ PRN PRN Reason: Insomnia Stop: 01/06/21 20:29 Hydroxyzine HCl (Hydroxyzine Hcl 25 Mg Tab) 25 mg PO Q4H PRN PRN Reason: Anxiety Stop: 01/06/21 20:29 Insulin Aspart (Insulin Aspart 100 Units/Ml 3 Ml Pen) 0 units SC ACHS RANDOLPH Stop: 01/06/21 21:59 Last Admin: 12/08/20 13:22 Dose: 2 units Documented by: Insulin Glargine (Insulin Glargine Solostar 100 Units/Ml 3 Ml Pen) 20 units SC DAILY RANDOLPH Stop: 01/07/21 08:59 Last Admin: 12/08/20 09:17 Dose: 20 units Documented by: Ketorolac Tromethamine (Ketorolac Tromethamine 10 Mg Tablet) 10 mg PO Q6H PRN PRN Reason: pain Stop: 12/13/20 13:41 Linaclotide (Linaclotide 145 Mcg Capsule) 145 mcg PO DAILY PRN PRN Reason: Gi Upset Stop: 01/06/21 21:29 Magnesium Hydroxide (Magnesium Hydroxide Susp 30 Ml Udc) 30 ml PO DAILY PRN PRN Reason: Constipation Stop: 01/06/21 20:29 Miscellaneous (Carbohydrates For Hypoglycemia ) 15 - 30 gm PO UD PRN PRN Reason: Hypoglycemia Treatment Stop: 01/06/21 21:44 Last Admin: 12/08/20 03:13 Dose: 23 gm Documented by: Miscellaneous Information (Pharmacy Glycemic Mgmt Consult) 0 ea N/A UD PRN PRN Reason: Consult Stop: 01/06/21 21:31 Ondansetron HCl (Ondansetron 8mg Od Tab) 8 mg PO DAILY PRN PRN Reason: Nausea Stop: 01/06/21 21:30 Pantoprazole Sodium (Pantoprazole 40 Mg Tab) 40 mg PO DAILYBB RANDOLPH; Protocol Stop: 01/07/21 07:59 Last Admin: 12/08/20 09:12 Dose: 40 mg Documented by: Perphenazine (Perphenazine 2 Mg Tablet) 2 mg PO BID [facility] Stop: 01/07/21 20:59 Propranolol HCl (Propranolol Hcl 60 Mg [place]) 60 mg PO [facility] Stop: 01/06/21 21:44 Last Admin: 12/07/20 22:47 Dose: Not Given Documented by: Sertraline HCl (Sertraline Hcl 100 Mg Tablet) 200 mg PO [facility] Stop: 01/07/21 08:59 Sodium Chloride (Sodium Chloride 0.65% Na Soln 45 Ml ([place])) 1 - 2 sprays NA PRN PRN PRN Reason: Nasal Dryness/Congestion Stop: 01/06/21 20:29 Trazodone HCl (Trazodone Hcl 50 Mg Tab) 50 mg PO [facility] Stop: 01/06/21 21:44 Last Admin: 12/07/20 22:47 Dose: Not Given Documented by: Vitamin D (Cholecalciferol 1,000 Units 25 Mcg Tab) [facility] [place] Stop: 01/07/21 08:59 Last Admin: 12/08/20 09:12 Dose: 4,000 units Documented by:
[2020-12-08] MEDS ORDERED: DOCUSATE SODIUM 100 MG CAP PO PRN (15:08)
[2020-12-08] MEDS: PERPHENAZINE 2 MG TABLET PO SCH (20:54)
[2020-12-08] MEDS: PROPRANOLOL HCL 60 MG LA CAP PO SCH (20:57)
[2020-12-08] MEDS: traZODone HCL 50 MG TAB PO SCH (20:57)
[2020-12-09] MEDS ORDERED: FLUTICASONE HFA 110MCG INHALER INH SCH (09:00)
[2020-12-09] MEDS: CHOLECALCIFEROL 1,000 UNITS 25 MCG TAB PO SCH (09:06)
[2020-12-09] MEDS: PANTOprazole 40 MG TAB PO SCH (09:06)
[2020-12-09] MEDS: FLUTICASONE HFA 220 MCG INHALER INH SCH (09:07)
[2020-12-09] MEDS: SERTRALINE HCL 100 MG TABLET PO SCH (09:08)
[2020-12-09] MEDS: PERPHENAZINE 2 MG TABLET PO SCH ×2 (09:08→21:02)
[2020-12-09] MEDS: INSULIN ASPART 100 UNITS/ML 3 ML PEN SC SCH ×4 (09:41→20:59)
[2020-12-09] MEDS: INSULIN GLARGINE SOLOSTAR 100 UNITS/ML 3 ML PEN SC SCH (09:42)
--- NOTE | 2020-12-09 11:02 | Psychiatric Progress Note ---
Date of Service December 09, 2020 Impression / Recommendations Impression 25 yo non-binary Minh with depressed mood and recurrent suicidal ideation due to depression superimposed on underlying borderline personality disorder. Patient on high risk medications should they overdose and has limited support system outside of treatment team. (1) Depression with suicidal ideation: (2) Borderline personality disorder: (3) Type I diabetes mellitus: 12/09/20-patient started Trilafon trial yesterday as per psych clinic. Risks/benefits/alternatives reviewed, reviewed less metabolic risks than atypicals but needs ongoing monitoring for TD. Patient tolerated first dose well. Discussed locked box for meds and will enlist assistance in notification to [facility] to secure weapon. 12/08/20--[facility] on q15 min checks (behavioral with suicide precautions) for safety. The patient will participate in group, recreational, and milieu therapies and will be offered additional individual and family sessions as clinically appropriate. They are refusing metabolic screening labs. Reprots HgbA1c as outpatient endocrine last month. risks/benefits/alternatives reviewed re: various augmenta tion strategies vs restart lithium vs trial of Trilafon 2 mg Bid as recommended by outpatient prescriber. Patient considering options. Insulin pump removed, glycemic management by pharmacy, behavioral douglas around dexcom/hospital policies to avoid splitting. Inventory Assets Strengths: connected to outpatient providers, knowledgeable re: diabetes Needs: decision around work Risk Factors Assessment : Yes Health Problems: Yes Mental Health Diagnoses: Yes Substance Use Disorders: No Previous Attempt: Yes (gesture) Protective Factors Assessment Employed: Yes Good Rapport with Provider: Yes Interval History Identifying Information 25 yo non-binary "Minh" (they/them pronouns) admit on 12/07/20 on a 201 commitment for SI with plan. Chief Complaint "I got some sleep!". Review of Systems Sleep Information Total Hours of Sleep: 7.5 Sleep Comments: Pt awake once due to hypoglycemic even - see nurse's note. Meal Information Percent Meal Consumed - Breakfast: 75 Percent Meal Consumed - Lunch: 80 Percent Meal Consumed - Dinner: 75 Subjective Subjective Patient was seen & assessed and interval progress reviewed with treatment team. Better rested today and received their hs meds correctly so less focussed on control of glucose checks. They were able to attend to an art project for 90 min last night. Continues to state if they were not in the hospital they would want to take Zofran but then went on to discuss all of the issues with their suicide plan and that the thinking about things/medical research work "for and against me, I wish I didn't know so much". Clearly no one available to assist with securing meds so discussed possible lock box to slow down access under times of low mood given impulsivity typically associated with BPD. They then admitted that their landlord (rents a room in someone's home rather than a separate apartment) keeps a gun "ready and unlocked". Reports why never would use a gun based on videos they have seen on the internet. Discussed mindfulness DBT concepts of nonjudgement, radical acceptance/non attachment and building a life worth living. Removing rx of Zofran and propranolol has other medical implications for patient and makes it more difficult to function and would only "worsen stress". Physical Exam Psychiatric Orientation: alert and oriented x 3 Apperance: appropriately dressed and appropriately groomed Eye Contact: good eye contact Motor Behavior: no abnormal motor movements Speech: normal rate/rhythm/volume of speech Affect: euthymic affect Mood: + depressed mood Thought Process: goal directed thought process Thought Content: reality based without delusions ongoing suicidal ideation "if not here in hospital" Homicidal Thoughts: denies homicidal thoughts Hallucinations: no auditory hallucinations and no visual hallucinations Cognition: attention grossly intact and language grossly intact Estimated Intelligence: consistent with education level Insight: + limited insight Judgement: + limited judgement Vital Signs (Past 24 Hours) Last Vital Signs Temp 36.7 C 12/09/20 06:52 Pulse 91 H 12/09/20 06:52 Resp 16 12/09/20 06:52 BP 89/56 L 12/09/20 06:52 Pulse Ox 97 12/08/20 21:03 Results & Data ([facility]) Laboratory Results Laboratory Results - last 24 hr 12/08/20 12/08/20 12/09/20 12:42 17:31 08:57 POC Glucose 132 H 73 228 H Current Inpatient Medications Current Inpatient Medications: Current Inpatient Medications Acetaminophen (Acetaminophen 325 Mg Tab) 650 mg PO Q4H PRN PRN Reason: Headache or Minor Fever Stop: 01/06/21 20:29 Al Hydrox/Mg Hydrox/Simethicone (Aluminum/Magnesium Susp 30 Ml Udc) 30 ml PO Q4H PRN PRN Reason: GI Upset Stop: 01/06/21 20:29 Cyclobenzaprine HCl (Cyclobenzaprine Hcl 5 Mg Tab) 5 mg PO BID PRN PRN Reason: muscle spasm Stop: 01/06/21 20:32 Dextrose (Dextrose 50% 50 Ml Syringe) 25 - 50 ml IV UD PRN; Protocol PRN Reason: Hypoglycemia Protocol Stop: 01/06/21 21:44 Docusate Sodium (Docusate Sodium 100 Mg Cap) 100 mg PO BID PRN PRN Reason: Constipation Stop: 01/07/21 20:59 Epinephrine HCl (Epinephrine Inj 1 Mg/Ml Amp) 0.3 mg IM UD PRN PRN Reason: Anaphylaxis Stop: 01/06/21 21:26 Fluticasone Propionate (Fluticasone Hfa 220 Mcg Inhaler) 1 puffs INH QAM [facility] Stop: 01/08/21 08:59 Last Admin: 12/09/20 09:07 Dose: 1 puffs Documented by: Glucagon (Glucagon For Inj 1 Mg Vial) 1 mg IM UD PRN; Protocol PRN Reason: Hypoglycemia Protocol Stop: 01/06/21 21:44 Glucose (Glucose 40% Gel 15 Gm Tube) 15 - 30 gm PO UD PRN; Protocol PRN Reason: Hypoglycemia Protocol Stop: 01/06/21 21:44 Glucose (Glucose 10 Tabs/Tube) 4 - 8 tabs PO UD PRN; Protocol PRN Reason: Hypoglycemia Protocol Stop: 01/06/21 21:44 Hydroxyzine HCl (Hydroxyzine Hcl 25 Mg Tab) 50 mg PO HSZ PRN PRN Reason: Insomnia Stop: 01/06/21 20:29 Hydroxyzine HCl (Hydroxyzine Hcl 25 Mg Tab) 25 mg PO Q4H PRN PRN Reason: Anxiety Stop: 01/06/21 20:29 Insulin Aspart (Insulin Aspart 100 Units/Ml 3 Ml Pen) 0 units SC ACHS [facility] Stop: 01/06/21 21:59 Last Admin: 12/09/20 09:41 Dose: 7 units Documented by: Insulin Glargine (Insulin Glargine Solostar 100 Units/Ml 3 Ml Pen) 20 units SC DAILY [facility] Stop: 01/07/21 08:59 Last Admin: 12/09/20 09:42 Dose: 20 units Documented by: Ketorolac Tromethamine (Ketorolac Tromethamine 10 Mg Tablet) 10 mg PO Q6H PRN PRN Reason: pain Stop: 12/13/20 13:41 Last Admin: 12/08/20 21:09 Dose: 10 mg Documented by: Linaclotide (Linaclotide 145 Mcg Capsule) 145 mcg PO DAILY PRN PRN Reason: Gi Upset Stop: 01/06/21 21:29 Magnesium Hydroxide (Magnesium Hydroxide Susp 30 Ml Udc) 30 ml PO DAILY PRN PRN Reason: Constipation Stop: 01/06/21 20:29 Miscellaneous (Carbohydrates For Hypoglycemia ) 15 - 30 gm PO UD PRN PRN Reason: Hypoglycemia Treatment Stop: 01/06/21 21:44 Last Admin: 12/08/20 03:13 Dose: 23 gm Documented by: Miscellaneous Information (Pharmacy Glycemic Mgmt Consult) 0 ea N/A UD PRN PRN Reason: Consult Stop: 01/06/21 21:31 Ondansetron HCl (Ondansetron 8mg Od Tab) 8 mg PO DAILY PRN PRN Reason: Nausea Stop: 01/06/21 21:30 Pantoprazole Sodium ([facility] 40 Mg [facility]) [facility] Protocol Stop: 01/07/21 07:59 Last Admin: 12/09/20 09:06 Dose: 40 mg Documented by: Perphenazine (Perphenazine 2 Mg Tablet) 2 mg PO BID [facility] Stop: 01/07/21 20:59 Last Admin: 12/09/20 09:08 Dose: 2 mg Documented by: Propranolol HCl (Propranolol Hcl 60 Mg [place]) 60 mg PO [facility] Stop: 01/06/21 21:44 Last Admin: 12/08/20 20:57 Dose: 60 mg Documented by: Sertraline HCl (Sertraline Hcl 100 Mg Tablet) 200 mg PO [facility] Stop: 01/07/21 08:59 Last Admin: 12/09/20 09:08 Dose: 200 mg Documented by: Sodium Chloride (Sodium Chloride 0.65% Na Soln 45 Ml ([place])) 1 - 2 sprays NA PRN PRN PRN Reason: Nasal Dryness/Congestion Stop: 01/06/21 20:29 Trazodone HCl (Trazodone Hcl 50 Mg Tab) 50 mg PO [facility] Stop: 01/06/21 21:44 Last Admin: 12/08/20 20:57 Dose: 50 mg Documented by: Vitamin D (Cholecalciferol 1,000 Units 25 Mcg Tab) 4,000 units PO QAM [facility] Stop: 01/07/21 08:59 Last Admin: 12/09/20 09:06 Dose: 4,000 units Documented by: Mental Health & Subst Abuse Tx Psychiatrist Name of Psychiatrist: [facility] - Dr. Sahu Psychiatrist's Psychiatric Appointment Comment: Orlando Luu, [address] [place] [address], [place] Therapist Name of Therapist: [facility] - [place] Therapist's Date of Therapist Appointment: 12/12/20 Therapy Appointment Comment: Orlando Luu, [address] [place] [address], [place] Boiler Fireman Name of Boiler Fireman: Nani Osorio Phone Number for Boiler Fireman: [phone] Date of Appointment with Boiler Fireman: 07/13/20 Time of Appointment with Boiler Fireman: 3:00 p.m. Case Management Appointment Comment: Will meet you in the [place]e Post Discharge Appointments Primary Care Physician Name Of Family Doctor: TARAH Murray Primary Care Date of Appointment with PCP: 12/15/20 Time of Appointment with PCP: 11:30 a.m. Provider Appointment Comment: [address], [address], [place] Contact Information Discharge Discharge Address: [address] (1) Type I diabetes mellitus Diabetes mellitus complication status: with other specified complication Qualified Code(s): E10.69 - Type 1 diabetes mellitus with other specified complication
[2020-12-09] MEDS: CARBOHYDRATES FOR HYPOGLYCEMIA PO PRN (16:29)
[2020-12-09] MEDS: traZODone HCL 50 MG TAB PO SCH (21:02)
[2020-12-09] MEDS: PROPRANOLOL HCL 60 MG LA CAP PO SCH (21:02)
[2020-12-10] MEDS: CHOLECALCIFEROL 1,000 UNITS 25 MCG TAB PO SCH (09:40)
[2020-12-10] MEDS: PANTOprazole 40 MG TAB PO SCH (09:40)
[2020-12-10] MEDS: FLUTICASONE HFA 220 MCG INHALER INH SCH (09:41)
[2020-12-10] MEDS: PERPHENAZINE 2 MG TABLET PO SCH ×2 (09:42→21:10)
[2020-12-10] MEDS: SERTRALINE HCL 100 MG TABLET PO SCH (09:42)
[2020-12-10] MEDS: INSULIN GLARGINE SOLOSTAR 100 UNITS/ML 3 ML PEN SC SCH (09:43)
[2020-12-10] MEDS: INSULIN ASPART 100 UNITS/ML 3 ML PEN SC SCH ×4 (09:44→21:18)
--- NOTE | 2020-12-10 10:44 | Psychiatric Progress Note ---
Date of Service December 10, 2020 Impression / Recommendations Impression 25 yo non-binary Minh with depressed mood and recurrent suicidal ideation due to depression superimposed on underlying borderline personality disorder. Patient on high risk medications should they overdose and has limited support system outside of treatment team. (1) Depression with suicidal ideation: (2) Borderline personality disorder: (3) Type I diabetes mellitus: 12/10/20-Patient continues to be in good behavioral control while on unit. Will continue current regimen, Zoloft 200mg qam, Trilafon 2mg BID. 12/09/20-patient started Trilafon trial yesterday as per psych clinic. Risks/benefits/alternatives reviewed, reviewed less metabolic risks than atypicals but needs ongoing monitoring for TD. Patient tolerated first dose well. Discussed locked box for meds and will enlist sw assistance in notification to [facility] to secure weapon. 12/08/20--The patient was [facility] to the [facility] on q15 min checks (behavioral with suicide precautions) for safety. The patient will participate in group, recreational, and milieu therapies and will be offered additional individual and family sessions as clinically appropriate. They are refusing metabolic screening labs. Reprots HgbA1c as outpatient endocrine last month. risks/benefits/alternatives reviewed re: various augmentation strategies vs restart lithium vs trial of Trilafon 2 mg Bid as recommended by outpatient prescriber. Patient considering options. Insulin pump removed, glycemic management by pharmacy, behavioral douglas around dexcom/hospital policies to avoid splitting. Inventory Assets Strengths: connected to outpatient providers, knowledgeable re: diabetes Needs: decision around work Risk Factors Assessment : Yes Do You Have Access To A Gun?: No Health Problems: Yes Mental Health Diagnoses: Yes Substance Use Disorders: No Previous Attempt: Yes (gesture) Protective Factors Assessment Employed: Yes Good Rapport with Provider: Yes Interval History Identifying Information 25 yo non-binary "Minh" (they/them pronouns) admit on 12/07/20 on a 201 commitment for SI with plan. Chief Complaint "still feeling low, but glad I exist today". Review of Systems Sleep Information Total Hours of Sleep: 7 Sleep Comments: Pt awake once due to hypoglycemic even - see nurse's note. Meal Information Percent Meal Consumed - Breakfast: 50 Percent Meal Consumed - Lunch: 75 Percent Meal Consumed - Dinner: 100 Subjective Subjective Patient seen, chart reviewed and case discussed with treatment team, nursing and social work. Patient reports a fair night of sleep and decent appetite. No side effects repo rted or observed. Regarding mood, patient reports some improvement which they attribute to the medications as well as the therapy they have received on the unit. Still reporting occasional SI at times. Responds well to groups although feels as if CBT is not as helpful. I spent 45 minutes with the patient, 50% of which was dedicated to counselling and coordination of care. Physical Exam Psychiatric Orientation: alert and oriented x 3 Apperance: appropriately dressed and appropriately groomed Eye Contact: good eye contact Motor Behavior: no abnormal motor movements Speech: normal rate/rhythm/volume of speech Affect: euthymic affect Mood: + depressed mood Thought Process: goal directed thought process Thought Content: reality based without delusions Suicidal Thoughts: denies suicidal thoughts Homicidal Thoughts: denies homicidal thoughts Hallucinations: no auditory hallucinations and no visual hallucinations Cognition: attention grossly intact and language grossly intact Estimated Intelligence: consistent with education level Insight: + limited insight Judgement: + limited judgement Vital Signs (Past 24 Hours) Last Vital Signs Temp 36.7 C 12/10/20 06:00 Pulse 79 12/10/20 06:04 Resp 16 12/10/20 06:00 BP 85/54 L 12/10/20 06:04 Pulse Ox 97 12/08/20 21:03 Results & Data ([facility]) Laboratory Results Laboratory Results - last 24 hr 12/09/20 12/09/20 12/09/20 12:40 16:25 16:44 POC Glucose 169 H 55 L* 82 12/09/20 12/10/20 20:50 09:20 POC Glucose 140 H 132 H Current Inpatient Medications Current Inpatient Medications: Current Inpatient Medications Acetaminophen (Acetaminophen 325 Mg Tab) 650 mg PO Q4H PRN PRN Reason: Headache or Minor Fever Stop: 01/06/21 20:29 Al Hydrox/Mg Hydrox/Simethicone (Aluminum/Magnesium Susp 30 Ml Udc) 30 ml PO Q4H PRN PRN Reason: GI Upset Stop: 01/06/21 20:29 Cyclobenzaprine HCl (Cyclobenzaprine Hcl 5 Mg Tab) 5 mg PO BID PRN PRN Reason: muscle spasm Stop: 01/06/21 20:32 Dextrose (Dextrose 50% 50 Ml Syringe) 25 - 50 ml IV UD PRN; Protocol PRN Reason: Hypoglycemia Protocol Stop: 01/06/21 21:44 Docusate Sodium (Docusate Sodium 100 Mg Cap) 100 mg PO BID PRN PRN Reason: Constipation Stop: 01/07/21 20:59 Epinephrine HCl (Epinephrine Inj 1 Mg/Ml Amp) 0.3 mg IM UD PRN PRN Reason: Anaphylaxis Stop: 01/06/21 21:26 Fluticasone Propionate (Fluticasone Hfa 220 Mcg Inhaler) 1 puffs INH QAM [facility] Stop: 01/08/21 08:59 Last Admin: 12/10/20 09:41 Dose: 1 puffs Documented by: Glucagon (Glucagon For Inj 1 Mg Vial) 1 mg IM UD PRN; Protocol PRN Reason: Hypoglycemia Protocol Stop: 01/06/21 21:44 Glucose (Glucose 40% Gel 15 Gm Tube) 15 - 30 gm PO UD PRN; Protocol PRN Reason: Hypoglycemia Protocol Stop: 01/06/21 21:44 Glucose (Glucose 10 Tabs/Tube) 4 - 8 tabs PO UD PRN; Protocol PRN Reason: Hypoglycemia Protocol Stop: 01/06/21 21:44 Hydroxyzine HCl (Hydroxyzine Hcl 25 Mg Tab) 50 mg PO HSZ PRN PRN Reason: Insomnia Stop: 01/06/21 20:29 Hydroxyzine HCl (Hydroxyzine Hcl 25 Mg Tab) 25 mg PO Q4H PRN PRN Reason: Anxiety Stop: 01/06/21 20:29 Insulin Aspart (Insulin Aspart 100 Units/Ml 3 Ml Pen) 0 units SC ACHS [facility] Stop: 01/06/21 21:59 Last Admin: 12/10/20 09:44 Dose: 3 units Documented by: Insulin Glargine (Insulin Glargine Solostar 100 Units/Ml 3 Ml Pen) 20 units SC DAILY [facility] Stop: 01/07/21 08:59 Last Admin: 12/10/20 09:43 Dose: 20 units Documented by: Ketorolac Tromethamine (Ketorolac Tromethamine 10 Mg Tablet) 10 mg PO Q6H PRN PRN Reason: pain Stop: 12/13/20 13:41 Last Admin: 12/08/20 21:09 Dose: 10 mg Documented by: Linaclotide (Linaclotide 145 Mcg Capsule) 145 mcg PO DAILY PRN PRN Reason: Gi Upset Stop: 01/06/21 21:29 Magnesium Hydroxide (Magnesium Hydroxide Susp 30 Ml Udc) 30 ml PO DAILY PRN PRN Reason: Constipation Stop: 01/06/21 20:29 Miscellaneous (Carbohydrates For Hypoglycemia ) 15 - 30 gm PO UD PRN PRN Reason: Hypoglycemia Treatment Stop: 01/06/21 21:44 Last Admin: 12/09/20 16:29 Dose: 15 gm Documented by: Miscellaneous Information (Pharmacy Glycemic Mgmt Consult) 0 ea N/A UD PRN PRN Reason: Consult Stop: 01/06/21 21:31 Ondansetron HCl (Ondansetron 8mg Od Tab) 8 mg PO DAILY PRN PRN Reason: Nausea Stop: 01/06/21 21:30 Pantoprazole Sodium ([facility] 40 Mg [facility]) [facility] Protocol Stop: 01/07/21 07:59 Last Admin: 12/10/20 09:40 Dose: 40 mg Documented by: Perphenazine (Perphenazine 2 Mg Tablet) 2 mg PO BID [facility] Stop: 01/07/21 20:59 Last Admin: 12/10/20 09:42 Dose: 2 mg Documented by: Propranolol HCl (Propranolol Hcl 60 Mg [place]) 60 mg PO [facility] Stop: 01/06/21 21:44 Last Admin: 12/09/20 21:02 Dose: 60 mg Documented by: Sertraline HCl (Sertraline Hcl 100 Mg Tablet) 200 mg PO QAM [facility] Stop: 01/07/21 08:59 Last Admin: 12/10/20 09:42 Dose: 200 mg Documented by: Sodium Chloride (Sodium Chloride 0.65% Na Soln 45 Ml ([place])) 1 - 2 sprays NA PRN PRN PRN Reason: Nasal Dryness/Congestion Stop: 01/06/21 20:29 Trazodone HCl (Trazodone Hcl 50 Mg Tab) 50 mg PO [facility] Stop: 01/06/21 21:44 Last Admin: 12/09/20 21:02 Dose: 50 mg Documented by: Vitamin D (Cholecalciferol 1,000 Units 25 Mcg Tab) 4,000 units PO QAM [facility] Stop: 01/07/21 08:59 Last Admin: 12/10/20 09:40 Dose: 4,000 units Documented by: Mental Health & Subst Abuse Tx Psychiatrist Name of Psychiatrist: [facility] - Dr. Sahu Psychiatrist's Date of Appointment with Psychiatrist: 12/14/20 Time of Appointment with Psychiatrist: 11:00 a.m. Psychiatric Appointment Comment: Next appt: 12/21 at 12:45 p.m. Therapist Name of Therapist: [facility] - [place] Therapist's Date of Therapist Appointment: 12/14/20 Time of Therapist Appointment: 5:00 p.m. Therapy Appointment Comment: [facility], [address] Floor, [place] Product Safety Technical Assistant Name of Product Safety Technical Assistant: Nani Osorio Phone Number for Product Safety Technical Assistant: [phone] Date of Appointment with Product Safety Technical Assistant: 07/13/20 Time of Appointment with Product Safety Technical Assistant: 3:00 p.m. Case Management Appointment Comment: [place] meet you in the park Post Discharge Appointments Primary Care Physician Name Of Family Doctor: TARAH Murray Primary Care Date of Appointment with PCP: 12/15/20 Time of Appointment with PCP: 11:30 a.m. Provider Appointment Comment: [address] [facility], [address], [place] Contact Information Discharge Discharge Address: [address] [place] [address] (1) Type I diabetes mellitus Diabetes mellitus complication status: with other specified complication Qualified Code(s): E10.69 - Type 1 diabetes mellitus with other specified complication
[2020-12-10] MEDS: traZODone HCL 50 MG TAB PO SCH (21:09)
[2020-12-10] MEDS: PROPRANOLOL HCL 60 MG LA CAP PO SCH (21:10)
[2020-12-11] MEDS: CHOLECALCIFEROL 1,000 UNITS 25 MCG TAB PO SCH (08:55)
[2020-12-11] MEDS: PANTOprazole 40 MG TAB PO SCH (08:55)
[2020-12-11] MEDS: FLUTICASONE HFA 220 MCG INHALER INH SCH (08:56)
[2020-12-11] MEDS: SERTRALINE HCL 100 MG TABLET PO SCH (08:57)
[2020-12-11] MEDS: PERPHENAZINE 2 MG TABLET PO SCH ×2 (08:57→21:32)
[2020-12-11] MEDS: INSULIN ASPART 100 UNITS/ML 3 ML PEN SC SCH ×4 (09:00→21:26)
[2020-12-11] MEDS: INSULIN GLARGINE SOLOSTAR 100 UNITS/ML 3 ML PEN SC SCH (09:06)
[2020-12-11] MEDS: hydrOXYzine HCl 25 MG TAB PO PRN (09:21)
--- NOTE | 2020-12-11 14:52 | Psychiatric Progress Note ---
Date of Service December 11, 2020 Impression / Recommendations Impression 25 yo non-binary Minh with depressed mood and recurrent suicidal ideation due to depression superimposed on underlying borderline personality disorder. Patient on high risk medications should they overdose and has limited support system outside of treatment team. (1) Depression with suicidal ideation: (2) Borderline personality disorder: (3) Type I diabetes mellitus: 12/10/20-Patient continues to be in good behavioral control while on unit. Will continue current regimen, Zoloft 200mg qam, Trilafon 2mg BID. 12/09/20-patient started Trilafon trial yesterday as per psych clinic. Risks/benefits/alternatives reviewed, reviewed less metabolic risks than atypicals but needs ongoing monitoring for TD. Patient tolerated first dose well. Discussed locked box for meds and will enlist sw assistance in notification to [facility] to secure weapon. 12/08/20--The patient was admitted to the [facility] ([facility] inpatient mental health unit) on q15 min checks (behavioral with suicide precautions) for safety. The patient will participate in group, recreational, and milieu therapies and will be offered additional individual and family sessions as clinically appropriate. They are refusing metabolic screening labs. Reprots HgbA1c as outpatient endocrine last month. risks/benefits/alternatives reviewed re: various augmentation strategies vs restart lithium vs trial of Trilafon 2 mg Bid as recommended by outpatient prescriber. Patient considering options. Insulin pump removed, glycemic management by pharmacy, behavioral douglas around dexcom/hospital policies to avoid splitting. Inventory Assets Strengths: connected to outpatient providers, knowledgeable re: diabetes Needs: decision around work Risk Factors Assessment : Yes Do You Have Access To A Gun?: No Health Problems: Yes Mental Health Diagnoses: Yes Substance Use Disorders: No Previous Attempt: Yes (gesture) Protective Factors Assessment Employed: Yes Good Rapport with Provider: Yes Interval History Identifying Information 25 yo non-binary "Minh" (they/them pronouns) admit on 12/07/20 on a 201 commitment for SI with plan. Chief Complaint "I'm okay, last night was rough". Review of Systems Sleep Information Total Hours of Sleep: 5.45 Sleep Comments: Pt awake once due to hypoglycemic even - see nurse's note. Meal Information Percent Meal Consumed - Breakfast: 50 Percent Meal Consumed - Lunch: 75 Percent Meal Consumed - Dinner: 100 Subjective Subjective Patient seen, chart reviewed and case discussed with treatment team, nursing and social work. Patient reports a fair night of sleep and decent appetite. No side effects reported or observed. Regarding mood, patient reports some improvement although does acknowledge a difficult night last night where patient felt significant urges to self harm. She reports having a better day today and was able to meaningfully contribute to group. I spent 30 minutes with the patient, 50% of which was dedicated to counselling and coordination of care. Physical Exam Psychiatric Orientation: alert and oriented x 3 Apperance: appropriately dressed and appropriately groomed Eye Contact: good eye contact Motor Behavior: no abnormal motor movements Speech: normal rate/rhythm/volume of speech Affect: euthymic affect Mood: + depressed mood Thought Process: goal directed thought process Thought Content: reality based without delusions Suicidal Thoughts: denies suicidal thoughts Homicidal Thoughts: denies homicidal thoughts Hallucinations: no auditory hallucinations and no visual hallucinations Cognition: attention grossly intact and language grossly intact Estimated Intelligence: consistent with education level Insight: + limited insight Judgement: + limited judgement Vital Signs (Past 24 Hours) Last Vital Signs Temp 36.6 C 12/11/20 06:00 Pulse 76 12/11/20 06:25 Resp 16 12/11/20 06:00 BP 87/59 L 12/11/20 06:25 Pulse Ox 97 12/08/20 21:03 Results & Data ([facility]) Laboratory Results Laboratory Results - last 24 hr 12/10/20 12/10/20 12/11/20 17:30 21:09 08:02 POC Glucose 115 H 182 H 268 H 12/11/20 12:34 POC Glucose 136 H Current Inpatient Medications Current Inpatient Medications: Current Inpatient Medications Acetaminophen (Acetaminophen 325 Mg Tab) 650 mg PO Q4H PRN PRN Reason: Headache or Minor Fever Stop: 01/06/21 20:29 Al Hydrox/Mg Hydrox/Simethicone (Aluminum/Magnesium Susp 30 Ml Udc) 30 ml PO Q4H PRN PRN Reason: GI Upset Stop: 01/06/21 20:29 Cyclobenzaprine HCl (Cyclobenzaprine Hcl 5 Mg Tab) 5 mg PO BID PRN PRN Reason: muscle spasm Stop: 01/06/21 20:32 Dextrose (Dextrose 50% 50 Ml Syringe) 25 - 50 ml IV UD PRN; Protocol PRN Reason: Hypoglycemia Protocol Stop: 01/06/21 21:44 Docusate Sodium (Docusate Sodium 100 Mg Cap) 100 mg PO BID PRN PRN Reason: Constipation Stop: 01/07/21 20:59 Epinephrine HCl (Epinephrine Inj 1 Mg/Ml Amp) 0.3 mg IM UD PRN PRN Reason: Anaphylaxis Stop: 01/06/21 21:26 Fluticasone Propionate (Fluticasone Hfa 220 Mcg Inhaler) 1 puffs INH QAM RANDOLPH Stop: 01/08/21 08:59 Last Admin: 12/11/20 08:56 Dose: 1 puffs Documented by: Glucagon (Glucagon For Inj 1 Mg Vial) 1 mg IM UD PRN; Protocol PRN Reason: Hypoglycemia Protocol Stop: 01/06/21 21:44 Glucose (Glucose 40% Gel 15 Gm Tube) 15 - 30 gm PO UD PRN; Protocol PRN Reason: Hypoglycemia Protocol Stop: 01/06/21 21:44 Glucose (Glucose 10 Tabs/Tube) 4 - 8 tabs PO UD PRN; Protocol PRN Reason: Hypoglycemia Protocol Stop: 01/06/21 21:44 Hydroxyzine HCl (Hydroxyzine Hcl 25 Mg Tab) 50 mg PO HSZ PRN PRN Reason: Insomnia Stop: 01/06/21 20:29 Hydroxyzine HCl (Hydroxyzine Hcl 25 Mg Tab) 25 mg PO Q4H PRN PRN Reason: Anxiety Stop: 01/06/21 20:29 Last Admin: 12/11/20 09:21 Dose: 25 mg Documented by: Insulin Aspart (Insulin Aspart 100 Units/Ml 3 Ml Pen) 0 units SC ACHS RANDOLPH Stop: 01/06/21 21:59 Last Admin: 12/11/20 12:55 Dose: 2 units Documented by: Insulin Glargine (Insulin Glargine Solostar 100 Units/Ml 3 Ml Pen) 20 units SC DAILY RANDOLPH Stop: 01/07/21 08:59 Last Admin: 12/11/20 09:06 Dose: 20 units Documented by: Ketorolac Tromethamine (Ketorolac Tromethamine 10 Mg Tablet) 10 mg PO Q6H PRN PRN Reason: pain Stop: 12/13/20 13:41 Last Admin: 12/08/20 21:09 Dose: 10 mg Documented by: Linaclotide (Linaclotide 145 Mcg Capsule) 145 mcg PO DAILY PRN PRN Reason: Gi Upset Stop: 01/06/21 21:29 Magnesium Hydroxide (Magnesium Hydroxide Susp 30 Ml Udc) 30 ml PO DAILY PRN PRN Reason: Constipation Stop: 01/06/21 20:29 Miscellaneous (Carbohydrates For Hypoglycemia ) 15 - 30 gm PO UD PRN PRN Reason: Hypoglycemia Treatment Stop: 01/06/21 21:44 Last Admin: 12/09/20 16:29 Dose: 15 gm Documented by: Miscellaneous Information (Pharmacy Glycemic Mgmt Consult) 0 ea N/A UD PRN PRN Reason: Consult Stop: 01/06/21 21:31 Ondansetron HCl (Ondansetron 8mg Od Tab) 8 mg PO DAILY PRN PRN Reason: Nausea Stop: 01/06/21 21:30 [facility]oprazole S[facility] ([facility] 40 Mg [facility]) [facility] Stop: 01/07/21 07:59 Last Admin: 12/11/20 08:55 Dose: 40 mg Documented by: Perphenazine (Perphenazine 2 Mg Tablet) 2 mg PO BID [facility] Stop: 01/07/21 20:59 Last Admin: 12/11/20 08:57 Dose: 2 mg Documented by: Propranolol HCl (Propranolol Hcl 60 Mg [place]) 60 mg PO [facility] Stop: 01/06/21 21:44 Last Admin: 12/10/20 21:10 Dose: 60 mg Documented by: Sertraline HCl (Sertraline Hcl 100 Mg Tablet) 200 mg PO QAM [facility] Stop: 01/07/21 08:59 Last Admin: 12/11/20 08:57 Dose: 200 mg Documented by: Sodium Chloride (Sodium Chloride 0.65% Na Soln 45 Ml ([place])) 1 - 2 sprays NA PRN PRN PRN Reason: Nasal Dryness/Congestion Stop: 01/06/21 20:29 Trazodone HCl (Trazodone Hcl 50 Mg Tab) 50 mg PO [facility] Stop: 01/06/21 21:44 Last Admin: 12/10/20 21:09 Dose: 50 mg Documented by: Vitamin D (Cholecalciferol 1,000 Units 25 Mcg Tab) 4,000 units PO QAM [facility] Stop: 01/07/21 08:59 Last Admin: 12/11/20 08:55 Dose: 4,000 units Documented by: Mental Health & Subst Abuse Tx Psychiatrist Name of Psychiatrist: [facility] - Dr. Sahu Psychiatrist's Date of Appointment with Psychiatrist: 12/14/20 Time of Appointment with Psychiatrist: 11:00 a.m. Psychiatric Appointment Comment: Next appt: 12/21 at 12:45 p.m. Therapist Name of Therapist: [facility] - [place] Therapist's Date of Therapist Appointment: 12/14/20 Time of Therapist Appointment: 5:00 p.m. Therapy Appointment Comment: [facility], [address] Floor, [place] Sugar Mixer Name of Sugar Mixer: Nani Osorio Phone Number for Sugar Mixer: [phone] Date of Appointment with Sugar Mixer: 07/13/20 Time of Appointment with Sugar Mixer: 3:00 p.m. Case Management Appointment Comment: [place] meet [place] the park Post Discharge Appointments Primary Care Physician Name Of Family Doctor: TARAH [facility] Date of Appointment with PCP: 12/15/20 Time of Appointment with PCP: 11:30 a.m. Provider Appointment Comment: [address] [facility], [address], [place] Contact Information Discharge Discharge Address: [address] [place] [address] (1) Type I diabetes mellitus Diabetes mellitus complication status: with other specified complication Qualified Code(s): E10.69 - Type 1 diabetes mellitus with other specified complication
[2020-12-11] MEDS: PROPRANOLOL HCL 60 MG LA CAP PO SCH (21:32)
[2020-12-11] MEDS: traZODone HCL 50 MG TAB PO SCH (21:32)
[2020-12-12] MEDS: CHOLECALCIFEROL 1,000 UNITS 25 MCG TAB PO SCH (08:45)
[2020-12-12] MEDS: FLUTICASONE HFA 220 MCG INHALER INH SCH (08:46)
[2020-12-12] MEDS: PANTOprazole 40 MG TAB PO SCH (08:46)
[2020-12-12] MEDS: SERTRALINE HCL 100 MG TABLET PO SCH (08:46)
[2020-12-12] MEDS: PERPHENAZINE 2 MG TABLET PO SCH (08:46)
[2020-12-12] MEDS: INSULIN ASPART 100 UNITS/ML 3 ML PEN SC SCH (09:33)
[2020-12-12] MEDS: INSULIN GLARGINE SOLOSTAR 100 UNITS/ML 3 ML PEN SC SCH (09:34)
[2020-12-12] MEDS: hydrOXYzine HCl 25 MG TAB PO PRN (09:54)
--- NOTE | 2020-12-12 15:48 | Discharge Summary ---
Date of Service December 12, 2020 History of Present Illness Last admitted to 07/16-07/20/20 for suicidal ideation with starting to carry out 3 step suicide plan. Patient is an insulin dependent diabetic with an insulin pump. They starts by counting pills, considering taking extra Zofran to keep from vomiting before ingesting i medications that have more cardiovascular side effects--like propranolol. 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 Reports being mis-gendered by staff there now they are "out". In general when asked about appetite, sleep, energy, states "everything is a shit show". Reports concerns about ability to use Dexcom continuous glucose monitoring while on unit. Notes longstanding issues with focus are worse. Feels they can only focus well for 2-3 hours on caffeine, admitted poor PO intake, sometimes restricting. Denies purging. Apparently did report seeing shadows in peripheral vision at times. Relates that lithium is one of few helpful meds in the past and disappointed it started to affect TSH (stopped last month for TSH >4) and prescriber attempted to replace with Rexulti but insurance required Abilify. Patient relates feeling more suicidal on Abilify and increase in overall depression and self-discontinued it just prior to her last med check. Also endorses high level of anxiety "8/10 for like ever" with breakthrough restlessness and chest discomfort several times a week. Also reports lack of focus alternating with hyperfocus, amotivation toward less preferred tasks, inability to finish tasks they start. Had testing in high school for dyscalculia and identified as having some issues with working memory, considering retesting. Physical Exam Mental Examination Appearance: Well Groomed Eye Contact: Direct Eye Contact Motor Behavior: Unremarkable Speech: Normal Mood: Anxious Affect: Anxious Thought Process: Intact Insight: Good Judgement: Good Psychiatric Orientation: alert and oriented x 3 Apperance: appropriately dressed and appropriately groomed Eye Contact: good eye contact Motor Behavior: no abnormal motor movements Speech: normal rate/rhythm/volume of speech Affect: euthymic affect Mood: + depressed mood Thought Process: goal directed thought process Thought Content: reality based without delusions Suicidal Thoughts: denies suicidal thoughts Homicidal Thoughts: denies homicidal thoughts Hallucinations: no auditory hallucinations and no visual hallucinations Cognition: attention grossly intact and language grossly intact Estimated Intelligence: consistent with education level Insight: + limited insight Judgement: + limited judgement Vital Signs (Past 24 Hours) Last Vital Signs Temp 36.7 C 12/12/20 12:39 Pulse 79 12/12/20 12:39 Resp 16 12/12/20 12:39 BP 92/58 L 12/12/20 12:39 Pulse Ox 97 12/12/20 12:39 Principal Diagnosis Major depressive disorder Psychiatric Data See daily stay summary. In short, safety was maintained, and the patient was cooperative with care. Medication changes included uptitration of Trilafon and they tolerated this well. A family session was held and safety plan was completed prior to discharge. Day of Discharge Assessment Today the patient voices readiness for discharge. They note improvement in mood and deny thoughts to harm self or others. Thoughts remain organized and they are improved from admission. There is no evidence of psychosis. They agree to take medications as prescribed and keep follow-up appointments. They are stable for discharge to outpatient level of care. Advance Directives Advance Directives Information Provided: Yes Advance Directives: No Mental Health Advance Directive: No Advance Directives on File: No Living Will: No Power of Psychology Technician: No Advance Directives Reason:: Declines as Mental Health Visit. Risk Factors Assessment : Yes Do You Have Access To A Gun?: No Health Problems: Yes Mental Health Diagnoses: Yes Substance Use Disorders: No Previous Attempt: Yes (gesture) Protective Factors Assessment Employed: Yes Good Rapport with Provider: Yes Discharge Data Lab Results 12/07/20 12/07/20 12/07/20 17:14 17:14 17:14 WBC RBC Hgb Hct MCV MCH MCHC RDW Std Deviation RDW Coeff of Keanu Plt Count MPV Immature Gran % (Auto) Neut % (Auto) Lymph % (Auto) [place] % (Auto) Eos % (Auto) Baso % (Auto) Neut # (Auto) Lymph # (Auto) [place] # (Auto) Eos # (Auto) Baso # (Auto) Immature Gran # (Auto) Sodium Potassium Chloride Carbon Dioxide Anion Gap BUN Creatinine Est Cr Clr Drug Dosing Est GFR ( Amer) Est GFR (Non-Af Amer) BUN/Creatinine Ratio Glucose POC Glucose Calcium Total Bilirubin AST ALT Alkaline Phosphatase Total Protein Albumin Globulin Albumin/Globulin Ratio TSH Urine Color Yellow Urine Appearance Clear Urine pH 8.5 H Ur Specific Cord 1.006 Urine Protein Negative Urine Glucose (UA) Negative Urine Ketones Negative Urine Blood Negative Urine Nitrite Negative Urine Bilirubin Negative Urine Urobilinogen Negative Ur Leukocyte Esterase Trace H Urine WBC (Auto) 1-5 Urine RBC (Auto) 0-4 U Hyaline Cast (Auto) 0 U Epithel Cells (Auto) 5-10 H Urine Bacteria (Auto) Negative Urine Test Negative Salicylates Urine Opiates Screen Neg Ur Methadone, Qual Neg Acetaminophen Urine Barbiturates Neg Ur Phencyclidine (PCP) Neg U Amphetamin/Meth Scrn Neg MDMA (Ecstasy) Screen Neg U Benzodiazepines Scrn Neg Ur Cocaine Metabolite Neg U Marijuana (THC) Screen Neg Ethyl Alcohol mg/dL COVID-19 Eval Order SARS-CoV-2, RNA, NAAT 12/07/20 12/07/20 12/07/20 17:56 17:56 17:56 WBC 6.58 RBC 4.15 L Hgb 12.9 Hct 37.8 MCV 91.1 MCH 31.1 MCHC 34.1 RDW Std Deviation 40.1 RDW Coeff of Keanu 11.9 Plt Count 318 MPV 10.5 H Immature Gran % (Auto) 0.2 Neut % (Auto) 64.6 Lymph % (Auto) 25.2 [place] % (Auto) 9.1 Eos % (Auto) 0.6 Baso % (Auto) 0.3 Neut # (Auto) 4.25 Lymph # (Auto) 1.66 [place] # (Auto) 0.60 H Eos # (Auto) 0.04 Baso # (Auto) 0.02 Immature Gran # (Auto) 0.01 Sodium 140 Potassium 4.6 Chloride 109 H Carbon Dioxide 27 Anion Gap 3.0 BUN 8 Creatinine 0.69 Est Cr Clr Drug Dosing 106.7 Est GFR ( Amer) 139.2 Est GFR (Non-Af Amer) 120.1 BUN/Creatinine Ratio 11.0 Glucose 94 POC Glucose Calcium 9.7 Total Bilirubin 1.4 H AST 11 L ALT 16 Alkaline Phosphatase 62 Total Protein 7.5 Albumin 3.9 Globulin 3.6 Albumin/Globulin Ratio 1.1 TSH 1.350 Urine Color Urine Appearance Urine pH Ur Specific Cord Urine Protein Urine Glucose (UA) Urine Ketones Urine Blood Urine Nitrite Urine Bilirubin Urine Urobilinogen Ur Leukocyte Esterase Urine WBC (Auto) Urine RBC (Auto) U Hyaline Cast (Auto) U Epithel Cells (Auto) Urine Bacteria (Auto) Urine Test Salicylates < 1.7 L Urine Opiates Screen Ur Methadone, Qual Acetaminophen < 2 L Urine Barbiturates Ur Phencyclidine (PCP) U Amphetamin/Meth Scrn MDMA (Ecstasy) Screen U Benzodiazepines Scrn Ur Cocaine Metabolite U Marijuana (THC) Screen Ethyl Alcohol mg/dL COVID-19 Eval Order SARS-CoV-2, RNA, NAAT 12/07/20 12/07/20 12/07/20 17:56 18:08 18:08 WBC RBC Hgb Hct MCV MCH MCHC RDW Std Deviation RDW Coeff of Keanu Plt Count MPV Immature Gran % (Auto) Neut % (Auto) Lymph % (Auto) [place] % (Auto) Eos % (Auto) Baso % (Auto) Neut # (Auto) Lymph # (Auto) [place] # (Auto) Eos # (Auto) Baso # (Auto) Immature Gran # (Auto) Sodium Potassium Chloride Carbon Dioxide Anion Gap BUN Creatinine Est Cr Clr Drug Dosing Est GFR ( Amer) Est GFR (Non-Af Amer) BUN/Creatinine Ratio Glucose POC Glucose Calcium Total Bilirubin AST ALT Alkaline Phosphatase Total Protein Albumin Globulin Albumin/Globulin Ratio TSH Urine Color Urine Appearance Urine pH Ur Specific Cord Urine Protein Urine Glucose (UA) Urine Ketones Urine Blood Urine Nitrite Urine Bilirubin Urine Urobilinogen Ur Leukocyte Esterase Urine WBC (Auto) Urine RBC (Auto) U Hyaline Cast (Auto) U Epithel Cells (Auto) Urine Bacteria (Auto) Urine Test Salicylates Urine Opiates Screen Ur Methadone, Qual Acetaminophen Urine Barbiturates Ur Phencyclidine (PCP) U Amphetamin/Meth Scrn MDMA (Ecstasy) Screen U Benzodiazepines Scrn Ur Cocaine Metabolite U Marijuana (THC) Screen Ethyl Alcohol mg/dL < 3.0 COVID-19 Eval Order Covid19 IDNow atMPAC SARS-CoV-2, RNA, NAAT NEGATIVE 12/08/20 12/08/20 12/08/20 08:55 12:42 17:31 WBC RBC Hgb Hct MCV MCH MCHC RDW Std Deviation RDW Coeff of Keanu Plt Count MPV Immature Gran % (Auto) Neut % (Auto) Lymph % (Auto) [place] % (Auto) Eos % (Auto) Baso % (Auto) Neut # (Auto) Lymph # (Auto) [place] # (Auto) Eos # (Auto) Baso # (Auto) Immature Gran # (Auto) Sodium Potassium Chloride Carbon Dioxide Anion Gap BUN Creatinine Est Cr Clr Drug Dosing Est GFR ( Amer) Est GFR (Non-Af Amer) BUN/Creatinine Ratio Glucose POC Glucose 217 H 132 H 73 Calcium Total Bilirubin AST ALT Alkaline Phosphatase Total Protein Albumin Globulin Albumin/Globulin Ratio TSH Urine Color Urine Appearance Urine pH Ur Specific Cord Urine Protein Urine Glucose (UA) Urine Ketones Urine Blood Urine Nitrite Urine Bilirubin Urine Urobilinogen Ur Leukocyte Esterase Urine WBC (Auto) Urine RBC (Auto) U Hyaline Cast (Auto) U Epithel Cells (Auto) Urine Bacteria (Auto) Urine Test Salicylates Urine Opiates Screen Ur Methadone, Qual Acetaminophen Urine Barbiturates Ur Phencyclidine (PCP) U Amphetamin/Meth Scrn MDMA (Ecstasy) Screen U Benzodiazepines Scrn Ur Cocaine Metabolite U Marijuana (THC) Screen Ethyl Alcohol mg/dL COVID-19 Eval Order SARS-CoV-2, RNA, NAAT 12/09/20 12/09/20 12/09/20 08:57 12:40 16:25 WBC RBC Hgb Hct MCV MCH MCHC RDW Std Deviation RDW Coeff of Keanu Plt Count MPV Immature Gran % (Auto) Neut % (Auto) Lymph % (Auto) [place] % (Auto) Eos % (Auto) Baso % (Auto) Neut # (Auto) Lymph # (Auto) [place] # (Auto) Eos # (Auto) Baso # (Auto) Immature Gran # (Auto) Sodium Potassium Chloride Carbon Dioxide Anion Gap BUN Creatinine Est Cr Clr Drug Dosing Est GFR ( Amer) Est GFR (Non-Af Amer) BUN/Creatinine Ratio Glucose POC Glucose 228 H 169 H 55 L* Calcium Total Bilirubin AST ALT Alkaline Phosphatase Total Protein Albumin Globulin Albumin/Globulin Ratio TSH Urine Color Urine Appearance Urine pH Ur Specific Cord Urine Protein Urine Glucose (UA) Urine Ketones Urine Blood Urine Nitrite Urine Bilirubin Urine Urobilinogen Ur Leukocyte Esterase Urine WBC (Auto) Urine RBC (Auto) U Hyaline Cast (Auto) U Epithel Cells (Auto) Urine Bacteria (Auto) Urine Test Salicylates Urine Opiates Screen Ur Methadone, Qual Acetaminophen Urine Barbiturates Ur Phencyclidine (PCP) U Amphetamin/Meth Scrn MDMA (Ecstasy) Screen U Benzodiazepines Scrn Ur Cocaine Metabolite U Marijuana (THC) Screen Ethyl Alcohol mg/dL COVID-19 Eval Order SARS-CoV-2, RNA, NAAT 12/09/20 12/09/20 12/10/20 16:44 20:50 09:20 WBC RBC Hgb Hct MCV MCH MCHC RDW Std Deviation RDW Coeff of Keanu Plt Count MPV Immature Gran % (Auto) Neut % (Auto) Lymph % (Auto) [place] % (Auto) Eos % (Auto) Baso % (Auto) Neut # (Auto) Lymph # (Auto) [place] # (Auto) Eos # (Auto) Baso # (Auto) Immature Gran # (Auto) Sodium Potassium Chloride Carbon Dioxide Anion Gap BUN Creatinine Est Cr Clr Drug Dosing Est GFR ( Amer) Est GFR (Non-Af Amer) BUN/Creatinine Ratio Glucose POC Glucose 82 140 H 132 H Calcium Total Bilirubin AST ALT Alkaline Phosphatase Total Protein Albumin Globulin Albumin/Globulin Ratio TSH Urine Color Urine Appearance Urine pH Ur Specific Cord Urine Protein Urine Glucose (UA) Urine Ketones Urine Blood Urine Nitrite Urine Bilirubin Urine Urobilinogen Ur Leukocyte Esterase Urine WBC (Auto) Urine RBC (Auto) U Hyaline Cast (Auto) U Epithel Cells (Auto) Urine Bacteria (Auto) Urine Test Salicylates Urine Opiates Screen Ur Methadone, Qual Acetaminophen Urine Barbiturates Ur Phencyclidine (PCP) U Amphetamin/Meth Scrn MDMA (Ecstasy) Screen U Benzodiazepines Scrn Ur Cocaine Metabolite U Marijuana (THC) Screen Ethyl Alcohol mg/dL COVID-19 Eval Order SARS-CoV-2, RNA, NAAT 12/10/20 12/10/20 12/10/20 12:53 17:30 21:09 WBC RBC Hgb Hct MCV MCH MCHC RDW Std Deviation RDW Coeff of Keanu Plt Count MPV Immature Gran % (Auto) Neut % (Auto) Lymph % (Auto) [place] % (Auto) Eos % (Auto) Baso % (Auto) Neut # (Auto) Lymph # (Auto) [place] # (Auto) Eos # (Auto) Baso # (Auto) Immature Gran # (Auto) Sodium Potassium Chloride Carbon Dioxide Anion Gap BUN Creatinine Est Cr Clr Drug Dosing Est GFR ( Amer) Est GFR (Non-Af Amer) BUN/Creatinine Ratio Glucose POC Glucose 141 H 115 H 182 H Calcium Total Bilirubin AST ALT Alkaline Phosphatase Total Protein Albumin Globulin Albumin/Globulin Ratio TSH Urine Color Urine Appearance Urine pH Ur Specific Cord Urine Protein Urine Glucose (UA) Urine Ketones Urine Blood Urine Nitrite Urine Bilirubin Urine Urobilinogen Ur Leukocyte Esterase Urine WBC (Auto) Urine RBC (Auto) U Hyaline Cast (Auto) U Epithel Cells (Auto) Urine Bacteria (Auto) Urine Test Salicylates Urine Opiates Screen Ur Methadone, Qual Acetaminophen Urine Barbiturates Ur Phencyclidine (PCP) U Amphetamin/Meth Scrn MDMA (Ecstasy) Screen U Benzodiazepines Scrn Ur Cocaine Metabolite U Marijuana (THC) Screen Ethyl Alcohol mg/dL COVID-19 Eval Order SARS-CoV-2, RNA, NAAT 12/11/20 12/11/20 12/11/20 08:02 12:34 16:33 WBC RBC Hgb Hct MCV MCH MCHC RDW Std Deviation RDW Coeff of Keanu Plt Count MPV Immature Gran % (Auto) Neut % (Auto) Lymph % (Auto) [place] % (Auto) Eos % (Auto) Baso % (Auto) Neut # (Auto) Lymph # (Auto) [place] # (Auto) Eos # (Auto) Baso # (Auto) Immature Gran # (Auto) Sodium Potassium Chloride Carbon Dioxide Anion Gap BUN Creatinine Est Cr Clr Drug Dosing Est GFR ( Amer) Est GFR (Non-Af Amer) BUN/Creatinine Ratio Glucose POC Glucose 268 H 136 H 138 H Calcium Total Bilirubin AST ALT Alkaline Phosphatase Total Protein Albumin Globulin Albumin/Globulin Ratio TSH Urine Color Urine Appearance Urine pH Ur Specific Cord Urine Protein Urine Glucose (UA) Urine Ketones Urine Blood Urine Nitrite Urine Bilirubin Urine Urobilinogen Ur Leukocyte Esterase Urine WBC (Auto) Urine RBC (Auto) U Hyaline Cast (Auto) U Epithel Cells (Auto) Urine Bacteria (Auto) Urine Test Salicylates Urine Opiates Screen Ur Methadone, Qual Acetaminophen Urine Barbiturates Ur Phencyclidine (PCP) U Amphetamin/Meth Scrn MDMA (Ecstasy) Screen U Benzodiazepines Scrn Ur Cocaine Metabolite U Marijuana (THC) Screen Ethyl Alcohol mg/dL COVID-19 Eval Order SARS-CoV-2, RNA, NAAT 12/11/20 12/12/20 21:13 08:32 WBC RBC Hgb Hct MCV MCH MCHC RDW Std Deviation RDW Coeff of Keanu Plt Count MPV Immature Gran % (Auto) Neut % (Auto) Lymph % (Auto) [place] % (Auto) Eos % (Auto) Baso % (Auto) Neut # (Auto) Lymph # (Auto) [place] # (Auto) Eos # (Auto) Baso # (Auto) Immature Gran # (Auto) Sodium Potassium Chloride Carbon Dioxide Anion Gap BUN Creatinine Est Cr Clr Drug Dosing Est GFR ( Amer) Est GFR (Non-Af Amer) BUN/Creatinine Ratio Glucose POC Glucose 293 H 113 H Calcium Total Bilirubin AST ALT Alkaline Phosphatase Total Protein Albumin Globulin Albumin/Globulin Ratio TSH Urine Color Urine Appearance Urine pH Ur Specific Cord Urine Protein Urine Glucose (UA) Urine Ketones Urine Blood Urine Nitrite Urine Bilirubin Urine Urobilinogen Ur Leukocyte Esterase Urine WBC (Auto) Urine RBC (Auto) U Hyaline Cast (Auto) U Epithel Cells (Auto) Urine Bacteria (Auto) Urine Test Salicylates Urine Opiates Screen Ur Methadone, Qual Acetaminophen Urine Barbiturates Ur Phencyclidine (PCP) U Amphetamin/Meth Scrn MDMA (Ecstasy) Screen U Benzodiazepines Scrn Ur Cocaine Metabolite U Marijuana (THC) Screen Ethyl Alcohol mg/dL COVID-19 Eval Order SARS-CoV-2, RNA, NAAT Hospital Course (1) Depression with suicidal ideation: (2) Borderline personality disorder: (3) Type I diabetes mellitus: 12/10/20-Patient continues to be in good behavioral control while on unit. Will continue current regimen, Zoloft 200mg qam, Trilafon 2mg BID. 12/09/20-patient started Trilafon trial yesterday as per psych clinic. Risks/benefits/alternatives reviewed, reviewed less metabolic risks than atypicals but needs ongoing monitoring for TD. Patient tolerated first dose well. Discussed locked box for meds and will enlist assistance in notification to [facility] to secure weapon. 12/08/20--The patient [facility] on q15 min checks (behavioral with suicide precautions) for safety. The patient will participate in group, recreational, and milieu therapies and will be offered additional individual and family sessions as clinically appropriate. They are refusing metabolic screening labs. Reprots HgbA1c as outpatient endocrine last month. risks/benefits/alternatives reviewed re: various augmentation strategies vs restart lithium vs trial of Trilafon 2 mg Bid as recommended by outpatient prescriber. Patient considering options. Insulin pump removed, glycemic management by pharmacy, behavioral douglas around dexcom/hospital policies to avoid splitting. Mental Health & Subst Abuse Tx Psychiatrist Name of Psychiatrist: [facility] - Dr. Sahu Psychiatrist's Date of Appointment with Psychiatrist: 12/14/20 Time of Appointment with Psychiatrist: 11:00 a.m. Psychiatric Appointment Comment: Next appt: 12/21 at 12:45 p.m. Psychiatrist Release of Information: Obtained, Reviewed and Signed Therapist Name of Therapist: [facility] - [place] Therapist's Date of Therapist Appointment: 12/12/20 Time of Therapist Appointment: 5:00 p.m. Therapy Appointment Comment: [address], [address], [place] Therapist Release of Information: Obtained, Reviewed and Signed Electrical Engineering Technician Name of Electrical Engineering Technician: Nani Osorio Phone Number for Electrical Engineering Technician: [phone] Date of Appointment with Electrical Engineering Technician: 07/13/20 Time of Appointment with Electrical Engineering Technician: 3:00 p.m. Case Management Appointment Comment: Will meet you in the [place] Electrical Engineering Technician Release of Information: Obtained, Reviewed and Signed Post Discharge Appointments Primary Care Physician Name Of Family Doctor: TARAH [facility] Date of Appointment with PCP: 12/15/20 Time of Appointment with PCP: 11:30 a.m. Provider Appointment Comment: [address], [address] Release of Information: Obtained, Reviewed and Signed Contact Information Discharge Discharge Address: [address] [place] [address] Discharge Plan Discharge Items Patient Disposition: Home - Self-Care Reason For Visit: MDD Discharge Diagnosis: Major depression Disorder Condition on Discharge: Good Activity: Resume your previous activity Non-emergency contact: Primary Care Provider and Psychiatrist Call non-emergency contact if: you have any medication questions and your symptoms worsen Follow-up/Referrals: Darian Murray, DO [Primary Care Provider] - Diet: Regular Addtl Attending Provider Instructions: SPECIAL CARE INSTRUCTIONS: 1. Follow through with your scheduled aftercare appointments. If unable to keep an appointment, please call to reschedule. 2. Take your medication only as prescribed. Medication should not be changed or stopped without the approval of your doctor. In the event of worsening symptoms or concerns about side effects, contact your doctor immediately. 3. Utilize new healthy coping skills, anger management skills, and stress management skills learned during your hospitalization. Journal feelings and process them with a support person. Identify stressors or situations that may result in relapse, deterioration or inappropriate behaviors and develop a plan to deal with those issues. 4. If your coping skills are ineffective and you are in crisis, contact your outpatient providers for direction. If unable to reach your providers, please call the [facility] CRISIS LINE AT , go to the [facility] walk-in center at [address], [address], [place], or go to the closest Emergency Room. 5. Avoid alcohol and un-prescribed drugs. 6. You have been provided with the Mental Health Advance Directives Pamphlet for your review. AFTERCARE APPOINTMENTS: * Please call your insurance company prior to your scheduled appointment to confirm your aftercare providers are covered. Take your insurance information to your appointments. WHO TO CALL AND WHEN: Medical Emergencies: For questions or emergencies related to your hospital stay, please contact the Inpatient Behavioral Health Unit at [phone]. A licensed clinician is on-call 26/11 for the Behavioral Health Unit for emergencies At any time you feel your situation is an emergency, you may also call 911 immediately. Pending Studies at Discharge: No Stand-Alone Forms: My [facility] [employer], Smoking Cessation Medications and DC Order Prescriptions: New cyclobenzaprine 5 mg Tablet 5 mg PO BID PRNQty: 0 RF: 0 epinephrine [Adrenalin] 1 mg/mL Solution 0.3 mg IM UD PRNQty: 0 RF: 0 propranolol 60 mg Capsule,Extended Release 24 Hr 60 mg PO HS Qty: 0 RF: 0 Continued Basaglar KwikPen U-100 Insulin 100 unit/mL (3 mL) insulin pen 19 units SQ DAILY PRN (Reason: Novolog Pump Failure) RF: 0 (DME) Ketostix Strip See Rx Instructions .ROUTE .MEDSUPPLY Qty: 100 RF: 2 Novolog U-100 Insulin aspart 100 unit/mL solution See Rx Instructions SQ DAILY Qty: 30 RF: 5 Glucagon (HCl) Emergency Kit 1 mg recon soln 1 mg IM Q20M PRN (Reason: hypoglycemia) Qty: 1 RF: 3 cholecalciferol (vitamin D3) [Vitamin D3] 50 mcg (2,000 unit) capsule 4,000 unit PO QAM RF: 0 (DME) Aerochamber MV spacer See Rx Instructions .ROUTE .MEDSUPPLY Qty: 1 RF: 0 Emgality Pen 120 mg/mL pen injector 120 mg SQ MONTHLY Qty: 1 RF: 5 (DME) comp.stocking,thigh,short,smal Misc See Rx Instructions .ROUTE .MEDSUPPLY Qty: 2 RF: 1 omeprazole 40 mg capsule,delayed release(DR/EC) 40 mg PO QAM RF: 0 Flovent HFA 220 mcg/actuation HFA aerosol inhaler 1 puff INHALATION QAM RF: 0 (DME) insulin pump controller Misc MISCELLANEOUS RF: 0 Linzess 145 mcg capsule 145 mcg PO DAILY PRN (Reason: Gi Upset) RF: 0 prednisolone acetate [Pred Forte] 1 % drops,suspension 1 drp OPB TID RF: 0 trazodone 50 mg Tablet 50 mg PO HS RF: 0 perphenazine 2 mg Tablet 2 mg PO BID Qty: 60 RF: 0 sertraline 100 mg Tablet 200 mg PO QAM Qty: 60 RF: 0 Discontinued lorazepam [Ativan] 0.5 mg tablet 0.5 mg PO DAILY PRN (Reason: Anxiety) RF: 0 propranolol 60 mg capsule,extended release 24 hr 60 mg PO HS Qty: 90 RF: 3 ondansetron HCl 8 mg tablet 8 mg PO DAILY PRN (Reason: Nausea) Qty: 30 RF: 0 cyclobenzaprine 5 mg tablet 5 mg PO BID PRN (Reason: muscle spasm) Qty: 20 RF: 0 epinephrine 0.3 mg/0.3 mL Auto-Injector 0.3 mg IM DIRECTED PRN (Reason: Anaphylaxis) RF: 0 Discharge Orders: Discharge Order (Routine); Ordered 12/12/20 Ordered By: Nayan Winchester Admission Data Admit Date/Time: 12/07/20 20:30 Attending Provider: Mary Elizabeth Admit Provider: Mary Elizabeth Primary Care Provider: Darian Murray Other Providers: Luis Eduardo Roe Other Interventions: Discharge Summary Assessment (RN) Last Done: 12/12/20 12:39 PSY Interdisciplinary Discharge Planning Last Done: 12/12/20 12:38 Coding Level of Care Code 28476 D/C day mgmt > 30 min Diagnoses Depression with suicidal ideation F32.9; R45.851 Borderline personality disorder F60.3 Type I diabetes mellitus E10.69 Diabetes mellitus complication status: with other specified complication Time Spent (min) 45
== END 2020-12-12 12:54 | disposition home or self-care (01) | DRG 881 ==
LOC: ED 16:27 → 3S 20:30

== ENCOUNTER 2021-10-22 01:51 | Inpatient (IN) ==
[2021-10-22 02:37] LABS: Appearance Urine Cloudy (Clear); Bacteria Urine Automated 2+ (Negative); Bilirubin Urine Negative (Negative); Blood Urine Negative (Negative); Color Urine Dark Yellow; Epithelial Cell Urine Auto >30 /lpf (0-5); Glucose Urine UA Negative (Negative); Ketones Urine Negative (Negative); Leukocyte Esterase Urine 3+ (Negative); Nitrite Urine Positive (Negative); Protein Urine Negative (Negative); Specific Gravity Urine 1.008 (1.000-1.030); Urobilinogen Urine Negative (Negative); WBC Urine Automated >30 /hpf (0-5); pH Urine 5.5 (4.5-7.5)
[2021-10-22 02:49] LABS: Cast Urine Automated 0 /lpf (0-5)
--- NOTE | 2021-10-22 02:51 | Emergency Department Note ---
Impression & Plan Intentional aspirin overdose, [facility] Provider Note NAME: MAYA MEYERS AGE: 26 SEX: F ARRIVES VIA: Walk-In INFORMANT: Patient ED PROVIDER(S): Kaci Fierro DO CHIEF COMPLAINT: Overdose PLAN: Disposition: Admit to the [facility] Condition: Stable MEDICAL DECISION MAKING: This is a 26-year-old female patient who presents to the emergency department after calling crisis. The patient has taken an overdose of aspirin nightly for the past couple of nights. The patient has had thoughts of wanting to hurt herself. She has a history of previous inpatient psychiatric stays. Unfortunately, she has had some loss of hearing as a result of the excessive aspirin intake. The patient's salicylate level was near 40. The case was discussed with the Poison Control Center and they recommended a bicarb drip, cardiac monitoring and medical admission. [facility] and they will evaluate for further inpatient care until her salicylate level drops below 20. At that point, she will be medically cleared and she can be evaluated by psychiatry. Triage Nursing notes reviewed and agree with tem. Vital Signs: reviewed and remarkable for tachycardia Differential diagnosis: Suicide attempt, drug overdose, mood disorder, thought disorder Diagnostics interpreted by me: Cardiac Monitoring: This tachycardia at 102 Laboratory studies: See below HPI: arrives for evaluation of overdose. The patient describes feeling "stuck" recently. She states that she did not rebound like she normally does after being admitted to the inpatient psychiatric facility at this hospital this past spring. The patient called crisis tonight stating that she felt suicidal and had taken an overdose of aspirin. The patient tells me that she has been upset about the loss of her therapist in felt stressed over her new job at [employer]. She took 10 aspirin tonight 12 aspirin yesterday and 13 aspirin 3 days ago. The patient does describe some hearing loss and feelings of constipation. ROS: See above HPI for pertinent positives & negatives. A total of 10 systems reviewed and were otherwise negative. 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 Extraocular eye muscles are intact, and sclera are anicteric. Nose - moist nasal mucosa without discharge. Mouth - moist buccal mucosa. Oropharynx is nonerythematous and there is no tonsillar exudate or edema noted. Neck: Supple; no JVD, nuchal rigidity, cervical lymphadenopathy, or auscultated bruits. Heart: Tachycardic rate and Regular rhythm. There is a normal S1 and S2 with no murmurs, clicks, or gallops appreciated. Lungs: Clear to auscultation bilaterally with no wheezes, rales, or rhonchi. Abdomen: Soft, completely nontender, nondistended, with good bowel sounds. There are no palpable pulsatile masses or hepatosplenomegaly. There is no guarding, rigidity, or rebound noted. Extremities: No evidence of cyanosis, clubbing, or edema. There are easily palpable peripheral pulses. Skin: warm and dry with good turgor and no rashes. Psych: The patient has a flat affect. She avoids all eye contact. She does admit to suicidal ideation and did overdose for the past 3 nights ED COURSE: Times/Reassessments: 0200: The patient was evaluated in room A7. A complete history and physical was performed. Previous electronic medical records were reviewed. Laboratory studies were drawn as above. Poison control was contacted. They recommended cardiac monitoring, medical admission, and an IV bicarb drip for the salicylate level greater than 30. I discussed the case with [facility] and they will evaluate for further management. The patient will be evaluated by psychiatry once they are medically cleared and the salicylate level drops below 20. Kaci Fierro DO Past Med/Surg History Medical History Acid reflux disease (~2013) Allergic rhinitis Asthma Borderline personality disorder Celiac disease Chronic joint pain Depression Diabetic gastroparesis associated with type 1 diabetes mellitus (~2017) DKA (diabetic ketoacidoses) Generalized anxiety disorder Gilbert's syndrome Irritable bowel syndrome with constipation Lumbar radiculopathy Migraines Osteopenia Osteoporosis Type I diabetes mellitus (~2013) Surgical History History of cataract surgery History of colonoscopy History of esophagogastroduodenoscopy (EGD) History of strabismus surgery Family History Mother Alcohol abuse Adult celiac disease Osteoporosis Seizure Celiac disease Father Skin cancer squamous cell Drug abuse Alcohol abuse Anxiety Seizure Grandfather Alcohol abuse Uncle Drug abuse Alcohol abuse Brother Drug abuse Unknown Cancer Grandmother Diabetes Colorectal cancer Celiac disease Grandmother Type 1 diabetes Other Bipolar 1 disorder No family history of adverse response to anesthesia Denies family history of Ovarian cancer Prostate cancer Myocardial infarction Breast cancer Lung cancer Hypertension Social History Smoking Status: Never smoker Tobacco Type: Cigarettes Age Started Using Tobacco: 18; Age Quit Using Tobacco: 20; Cigarettes Per Day: 1 per month; Second Hand Exposure: No; Hx Alcohol Use: No Hx Substance Use: No Preferred Language: [place] Communication Ability: Effective Visual Impairment: No Limitations Hearing Ability: Normal Peanut Sheller Required: No Beliefs That Will Affect Care: None and Spiritual Spiritual Healthcare Practices: Protective bracelet marital status: Single Current Living Situation: Alone Current Living Situation Comment: friend current occupational status: employed current occupation: [employer] Feels Safe at Home: Yes Childhood Exposure to Second-Hand Smoke: Yes caffeine: Yes Dental Care, Regularly: Yes Physical Activity Frequency: 3-4 Times per Week Physical Activity Frequency Comment: walks Seatbelt Use: always Sunscreen Use: Yes (when in the sun for an extended time) Assistive Devices: Glasses Allergies Allergies Allergy/AdvReac Type Severity Reaction Status Date / Time gluten Allergy Severe CELIAC'S Verified 08/11/21 11:03 DISEASE Penicillins Allergy Severe ANAPHYLAXIS Verified 08/11/21 11:03 shellfish derived Allergy Severe ANAPHYLAXIS Verified 08/11/21 11:03 apple Allergy Intermediate THROAT Verified 08/11/21 11:03 SWELLS house dust Allergy Intermediate Hives Verified 08/11/21 11:03 oxcarbazepine Allergy Intermediate Rash,hives Verified 08/11/21 11:03 and itchiness. lactose AdvReac Intermediate Gatrointestinal Verified 08/11/21 11:03 Upset sumatriptan [From Imitrex] AdvReac Intermediate INTENSIFIES Verified 08/11/21 11:03 HEADACHE Home Meds Home Medications Medication Instructions Recorded Confirmed insulin glargine 100 unit/mL (3 20 units SQ DAILY@16 PRN ml 11/26/18 10/22/21 mL) subcutaneous pen (Basaglar KwikPen U-100 Insulin) insulin pump controller 12/27/19 10/22/21 fluticasone propionate 220 220 mcg INHALATION QAM 02/12/21 10/22/21 mcg/actuation HFA aerosol inhaler (Flovent HFA) propranolol 60 mg capsule,24 60 mg PO HS 02/12/21 10/22/21 hr,extended release (Inderal LA) trazodone 50 mg tablet 50 mg PO HS 02/12/21 10/22/21 hydroxyzine HCl 25 mg tablet 25 mg PO DAILY PRN tab 05/12/21 10/22/21 cholecalciferol (vitamin D3) 50 100 mcg PO DAILY cap 07/04/21 10/22/21 mcg (2,000 unit) capsule ketorolac 10 mg tablet 10 mg PO Q6H PRN 07/04/21 10/22/21 prenat.vits,mathieu,pjd-urhp-pstlj 1 tab PO DAILY 07/04/21 10/22/21 vitamin E (dl, acetate) 45 mg (100 45 mg PO DAILY 07/04/21 10/22/21 unit) capsule sodium chloride 1 gram tablet 1,000 mg PO BID PRN 07/20/21 10/22/21 Fish Oil 1,000 mg PO DAILY 10/22/21 10/22/21 bupropion HCl 150 mg 24 hr tablet, 300 mg PO QAM 10/22/21 10/22/21 extended release Previous Rx's Medication Instructions Recorded inhalational spacing device #1 ea 03/27/19 (Aerochamber MV) comp.stocking,thigh,short,smal #2 ea 09/21/20 onabotulinumtoxinA 200 unit See Rx Instructions IM .COMPLEX #1 07/04/21 solution for injection (Botox) ea linaclotide 72 mcg capsule 72 mcg PO DAILY #30 cap 08/01/21 (Linzess) brexpiprazole 1 mg tablet (Rexulti) 1 mg PO DAILY #30 tab 08/03/21 acetone (urine) test (Ketostix) #100 ea 08/09/21 glucagon 3 mg/actuation nasal spray 3 mg INTRANASAL PRN #2 ea 08/09/21 insulin syringe-needle U-100 0.3 #100 ea 08/09/21 mL 29 gauge x 1/2" (BD Insulin Syringe) insulin aspart U-100 100 unit/mL 100 unit CONTINUOUS SUBCUTANEOUS 09/08/21 subcutaneous solution INFUSION CONTINOUS 90 Days #90 ml pantoprazole 40 mg tablet,delayed See Rx Instructions .ROUTE 09/22/21 release .COMPLEX #30 tab Results & Data (ED) Vital Signs Vital Signs - 24 hr 10/22/21 01:53 10/22/21 05:16 10/22/21 05:45 Temperature 36.3 C L 36.9 C 36.8 C Temperature Source Temporal Artery Scan Oral Oral Pulse Rate 103 H Pulse Rate [Left Finger] 91 H 89 Pulse Rhythm [Left Finger] Regular Pulse Strength [Left Finger] Normal Respiratory Rate 20 16 18 Respiratory Effort / Characteristics Non-Labored Spontaneous Non-Labored Spontaneous Respiratory Depth Normal Normal Respiratory Pattern Regular Blood Pressure 100/73 Blood Pressure [Left Arm] 98/54 L 108/74 Blood Pressure Mean 82 Blood Pressure Mean [Left Arm] 68 85 Blood Pressure Position Sitting Blood Pressure Position [Left Arm] Lying Lying Pulse Oximetry 96 98 97 Oxygen Delivery Method Room Air Room Air Room Air Sepsis Recent Fever Within 48 Hours No Sepsis New/Unexplained Change in Mental Status No Sepsis Action Taken by Nursing No Action Required Laboratory Data Result diagrams: 10/22/21 02:35 10/22/21 02:35 Lab Results 10/22/21 10/22/21 10/22/21 Range/Units 02:23 02:23 02:27 WBC (4.8-10.8) K/uL RBC (4.2-5.4) M/uL Hgb (12.0-16.0) g/dL Hct (37-47) % MCV (80-100) fL MCH (25-34) pg MCHC (32-36) g/dL RDW Std Deviation (36.4-46.3) fL RDW Coeff of Keanu (11.5-14.5) % Plt Count (130-400) K/uL MPV (7.4-10.4) fL Immature Gran % (Auto) % Neut % (Auto) % Lymph % (Auto) % [place] % (Auto) % Eos % (Auto) % Baso % (Auto) % Neut # (Auto) (1.4-6.5) K/uL Lymph # (Auto) (1.2-3.4) K/uL [place] # (Auto) (0.11-0.59) K/uL Eos # (Auto) (0-0.5) K/uL Baso # (Auto) (0-0.2) K/uL Immature Gran # (Auto) (0.00-0.02) K/uL Sodium (136-145) mmol/L Potassium (3.5-5.1) mmol/L Chloride (98-107) mmol/L Carbon Dioxide (21-32) mmol/L Anion Gap (3-11) BUN (6-23) mg/dl Creatinine (0.6-1.2) mg/dl Est Cr Clr Drug Dosing ml/min Est GFR ( Amer) ml/min Est GFR (Non-Af Amer) ml/min BUN/Creatinine Ratio (10-20) Glucose (70-99(Fasting)) mg/dl Calcium (8.5-10.1) mg/dl Total Bilirubin (0.2-1.0) mg/dl AST (13-39) U/L ALT (7-52) U/L Alkaline Phosphatase (34-104) U/L Total Protein (6.0-8.3) gm/dl Albumin (3.4-5.0) gm/dl Globulin (2.5-4.0) gm/dl Albumin/Globulin Ratio (0.9-2) TSH (0.300-4.500) uIu/ml Urine Color Dark Yellow Urine Appearance Cloudy A (Clear) Urine pH 5.5 (4.5-7.5) Ur Specific [place] 1.008 (1.000-1.030) Urine Protein Negative (Negative) Urine Glucose (UA) Negative (Negative) Urine Ketones Negative (Negative) Urine Blood Negative (Negative) Urine Nitrite Positive A (Negative) Urine Bilirubin Negative (Negative) Urine Urobilinogen Negative (Negative) Ur Leukocyte Esterase 3+ H (Negative) Urine WBC (Auto) >30 H (0-5) /hpf Urine RBC (Auto) 5-10 H (0-4) /hpf U Hyaline Cast (Auto) 0 (0-5) /lpf U Epithel Cells (Auto) >30 H (0-5) /lpf Urine Bacteria (Auto) 2+ H (Negative) POC Ur Test NEG (NEG) Salicylates (3.0-30) mg/dl Urine Opiates Screen Neg (Neg) Ur Methadone, Qual Neg (Neg) Acetaminophen (10-30) ug/ml Urine Barbiturates Neg (Neg) Ur Phencyclidine (PCP) Neg (Neg) U Amphetamin/Meth Scrn Neg (Neg) MDMA (Ecstasy) Screen Pos H (Neg) U Benzodiazepines Scrn Neg (Neg) Ur Cocaine Metabolite Neg (Neg) U Marijuana (THC) Screen Neg (Neg) Ethyl Alcohol mg/dL (<10.0) mg/dl SARS-CoV-2, RNA, NAAT (NEGATIVE) 10/22/21 10/22/21 10/22/21 Range/Units 02:35 02:35 02:35 WBC 8.34 (4.8-10.8) K/uL RBC 4.32 (4.2-5.4) M/uL Hgb 12.9 (12.0-16.0) g/dL Hct 37.6 (37-47) % MCV 87.0 (80-100) fL MCH 29.9 (25-34) pg MCHC 34.3 (32-36) g/dL RDW Std Deviation 39.0 (36.4-46.3) fL RDW Coeff of Keanu 12.2 (11.5-14.5) % Plt Count 264 (130-400) K/uL MPV 11.2 H (7.4-10.4) fL Immature Gran % (Auto) 0.1 % Neut % (Auto) 62.9 % Lymph % (Auto) 24.9 % [place] % (Auto) 10.1 % Eos % (Auto) 1.8 % Baso % (Auto) 0.2 % Neut # (Auto) 5.24 (1.4-6.5) K/uL Lymph # (Auto) 2.08 (1.2-3.4) K/uL [place] # (Auto) 0.84 H (0.11-0.59) K/uL Eos # (Auto) 0.15 (0-0.5) K/uL Baso # (Auto) 0.02 (0-0.2) K/uL Immature Gran # (Auto) 0.01 (0.00-0.02) K/uL Sodium 137 (136-145) mmol/L Potassium 3.6 (3.5-5.1) mmol/L Chloride 104 (98-107) mmol/L Carbon Dioxide 23 (21-32) mmol/L Anion Gap 10 (3-11) BUN 14 (6-23) mg/dl Creatinine 0.80 (0.6-1.2) mg/dl Est Cr Clr Drug Dosing 91.2 ml/min Est GFR ( Amer) 117.1 ml/min Est GFR (Non-Af Amer) 101.0 ml/min BUN/Creatinine Ratio 17.5 (10-20) Glucose 115 H (70-99(Fasting)) mg/dl Calcium 9.3 (8.5-10.1) mg/dl Total Bilirubin 0.6 (0.2-1.0) mg/dl AST 14 (13-39) U/L ALT 9 (7-52) U/L Alkaline Phosphatase 54 (34-104) U/L Total Protein 7.3 (6.0-8.3) gm/dl Albumin 4.3 (3.4-5.0) gm/dl Globulin 3.0 (2.5-4.0) gm/dl Albumin/Globulin Ratio 1.4 (0.9-2) TSH 2.613 (0.300-4.500) uIu/ml Urine Color Urine Appearance (Clear) Urine pH (4.5-7.5) Ur Specific [place] (1.000-1.030) Urine Protein (Negative) Urine Glucose (UA) (Negative) Urine Ketones (Negative) Urine Blood (Negative) Urine Nitrite (Negative) Urine Bilirubin (Negative) Urine Urobilinogen (Negative) Ur Leukocyte Esterase (Negative) Urine WBC (Auto) (0-5) /hpf Urine RBC (Auto) (0-4) /hpf U Hyaline Cast (Auto) (0-5) /lpf U Epithel Cells (Auto) (0-5) /lpf Urine Bacteria (Auto) (Negative) POC Ur Test (NEG) Salicylates (3.0-30) mg/dl Urine Opiates Screen (Neg) Ur Methadone, Qual (Neg) Acetaminophen (10-30) ug/ml Urine Barbiturates (Neg) Ur Phencyclidine (PCP) (Neg) U Amphetamin/Meth Scrn (Neg) MDMA (Ecstasy) Screen (Neg) U Benzodiazepines Scrn (Neg) Ur Cocaine Metabolite (Neg) U Marijuana (THC) Screen (Neg) Ethyl Alcohol mg/dL (<10.0) mg/dl SARS-CoV-2, RNA, NAAT (NEGATIVE) 10/22/21 10/22/21 10/22/21 Range/Units 02:35 02:35 02:38 WBC (4.8-10.8) K/uL RBC (4.2-5.4) M/uL Hgb (12.0-16.0) g/dL Hct (37-47) % MCV (80-100) fL MCH (25-34) pg MCHC (32-36) g/dL RDW Std Deviation (36.4-46.3) fL RDW Coeff of Keanu (11.5-14.5) % Plt Count (130-400) K/uL MPV (7.4-10.4) fL Immature Gran % (Auto) % Neut % (Auto) % Lymph % (Auto) % [place] % (Auto) % Eos % (Auto) % Baso % (Auto) % Neut # (Auto) (1.4-6.5) K/uL Lymph # (Auto) (1.2-3.4) K/uL [place] # (Auto) (0.11-0.59) K/uL Eos # (Auto) (0-0.5) K/uL Baso # (Auto) (0-0.2) K/uL Immature Gran # (Auto) (0.00-0.02) K/uL Sodium (136-145) mmol/L Potassium (3.5-5.1) mmol/L Chloride (98-107) mmol/L Carbon Dioxide (21-32) mmol/L Anion Gap (3-11) BUN (6-23) mg/dl Creatinine (0.6-1.2) mg/dl Est Cr Clr Drug Dosing ml/min Est GFR ( Amer) ml/min Est GFR (Non-Af Amer) ml/min BUN/Creatinine Ratio (10-20) Glucose (70-99(Fasting)) mg/dl Calcium (8.5-10.1) mg/dl Total Bilirubin (0.2-1.0) mg/dl AST (13-39) U/L ALT (7-52) U/L Alkaline Phosphatase (34-104) U/L Total Protein (6.0-8.3) gm/dl Albumin (3.4-5.0) gm/dl Globulin (2.5-4.0) gm/dl Albumin/Globulin Ratio (0.9-2) TSH (0.300-4.500) uIu/ml Urine Color Urine Appearance (Clear) Urine pH (4.5-7.5) Ur Specific [place] (1.000-1.030) Urine Protein (Negative) Urine Glucose (UA) (Negative) Urine Ketones (Negative) Urine Blood (Negative) Urine Nitrite (Negative) Urine Bilirubin (Negative) Urine Urobilinogen (Negative) Ur Leukocyte Esterase (Negative) Urine WBC (Auto) (0-5) /hpf Urine RBC (Auto) (0-4) /hpf U Hyaline Cast (Auto) (0-5) /lpf U Epithel Cells (Auto) (0-5) /lpf Urine Bacteria (Auto) (Negative) POC Ur Test (NEG) Salicylates 39.5 H* (3.0-30) mg/dl Urine Opiates Screen (Neg) Ur Methadone, Qual (Neg) Acetaminophen < 3 L (10-30) ug/ml Urine Barbiturates (Neg) Ur Phencyclidine (PCP) (Neg) U Amphetamin/Meth Scrn (Neg) MDMA (Ecstasy) Screen (Neg) U Benzodiazepines Scrn (Neg) Ur Cocaine Metabolite (Neg) U Marijuana (THC) Screen (Neg) Ethyl Alcohol mg/dL < 10.0 (<10.0) mg/dl SARS-CoV-2, RNA, NAAT NEGATIVE (NEGATIVE) 10/22/21 Range/Units 04:36 WBC (4.8-10.8) K/uL RBC (4.2-5.4) M/uL Hgb (12.0-16.0) g/dL Hct (37-47) % MCV (80-100) fL MCH (25-34) pg MCHC (32-36) g/dL RDW Std Deviation (36.4-46.3) fL RDW Coeff of Keanu (11.5-14.5) % Plt Count (130-400) K/uL MPV (7.4-10.4) fL Immature Gran % (Auto) % Neut % (Auto) % Lymph % (Auto) % [place] % (Auto) % Eos % (Auto) % Baso % (Auto) % Neut # (Auto) (1.4-6.5) K/uL Lymph # (Auto) (1.2-3.4) K/uL [place] # (Auto) (0.11-0.59) K/uL Eos # (Auto) (0-0.5) K/uL Baso # (Auto) (0-0.2) K/uL Immature Gran # (Auto) (0.00-0.02) K/uL Sodium (136-145) mmol/L Potassium (3.5-5.1) mmol/L Chloride (98-107) mmol/L Carbon Dioxide (21-32) mmol/L Anion Gap (3-11) BUN (6-23) mg/dl Creatinine (0.6-1.2) mg/dl Est Cr Clr Drug Dosing ml/min Est GFR ( Amer) ml/min Est GFR (Non-Af Amer) ml/min BUN/Creatinine Ratio (10-20) Glucose (70-99(Fasting)) mg/dl Calcium (8.5-10.1) mg/dl Total Bilirubin (0.2-1.0) mg/dl AST (13-39) U/L ALT (7-52) U/L Alkaline Phosphatase (34-104) U/L Total Protein (6.0-8.3) gm/dl Albumin (3.4-5.0) gm/dl Globulin (2.5-4.0) gm/dl Albumin/Globulin Ratio (0.9-2) TSH (0.300-4.500) uIu/ml Urine Color Urine Appearance (Clear) Urine pH (4.5-7.5) Ur Specific [place] (1.000-1.030) Urine Protein (Negative) Urine Glucose (UA) (Negative) Urine Ketones (Negative) Urine Blood (Negative) Urine Nitrite (Negative) Urine Bilirubin (Negative) Urine Urobilinogen (Negative) Ur Leukocyte Esterase (Negative) Urine WBC (Auto) (0-5) /hpf Urine RBC (Auto) (0-4) /hpf U Hyaline Cast (Auto) (0-5) /lpf U Epithel Cells (Auto) (0-5) /lpf Urine Bacteria (Auto) (Negative) POC Ur Test (NEG) Salicylates 36.0 H* (3.0-30) mg/dl Urine Opiates Screen (Neg) Ur Methadone, Qual (Neg) Acetaminophen (10-30) ug/ml Urine Barbiturates (Neg) Ur Phencyclidine (PCP) (Neg) U Amphetamin/Meth Scrn (Neg) MDMA (Ecstasy) Screen (Neg) U Benzodiazepines Scrn (Neg) Ur Cocaine Metabolite (Neg) U Marijuana (THC) Screen (Neg) Ethyl Alcohol mg/dL (<10.0) mg/dl SARS-CoV-2, RNA, NAAT (NEGATIVE) Administered Medications Sodium Bicarbonate 150 meq/Potassium Chloride 30 meq/Dextrose 1,165 mls @ 250 mls/hr IV .Q4H40M RANDOLPH Stop: 11/21/21 05:44 Last Admin: 10/22/21 06:09 Dose: 250 mls/hr Documented by: [id number] Discharge Plan Visit Data Chief Complaint: Mental Health Evaluation Stated Complaint: REF FOR EVAL ED Provider: Kaci Fierro Discharge Problem: Intentional aspirin overdose, Suicide attempt Forms Stand Alone Forms: My [facility], Suicide Prevention Resources Prescriptions Prescriptions: No Action Alistair Ruiz U-100 Insulin 100 unit/mL (3 mL) insulin pen 20 units SQ DAILY@16 PRN (Reason: Novolog Pump Failure) RF: 0 insulin aspart U-100 100 unit/mL solution 100 unit continuous subcutaneous infusion CONTINOUS 90 Days Qty: 90 RF: 1 pantoprazole 40 mg tablet,delayed release (DR/EC) See Rx Instructions .ROUTE .COMPLEX Qty: 30 RF: 2 (DME) Aerochamber MV spacer See Rx Instructions .ROUTE .MEDSUPPLY Qty: 1 RF: 0 hydroxyzine HCl 25 mg tablet 25 mg PO DAILY PRN (Reason: Anxiety) RF: 0 (DME) Ketostix Strip See Rx Instructions .ROUTE .MEDSUPPLY Qty: 100 RF: 2 glucagon 3 mg/actuation spray,non-aerosol 3 mg intranasal PRN Qty: 2 RF: 3 (DME) insulin syringe-needle U-100 [BD Insulin Syringe] 0.3 mL 29 gauge x 1/2" syringe See Rx Instructions .Route Qty: 100 RF: 3 (DME) comp.stocking,thigh,short,smal Misc See Rx Instructions .ROUTE .MEDSUPPLY Qty: 2 RF: 1 Linzess 72 mcg capsule 72 mcg PO DAILY Qty: 30 RF: 11 ketorolac 10 mg tablet 10 mg PO Q6H PRN (Reason: Pain) RF: 0 vitamin E (dl, acetate) 45 mg (100 unit) capsule 45 mg PO DAILY RF: 0 cholecalciferol (vitamin D3) 50 mcg (2,000 unit) capsule 100 mcg PO DAILY RF: 0 prenat.vits,mathieu,jcp-xwts-lcmgp Tablet 1 tab PO DAILY RF: 0 Botox 200 unit recon soln See Rx Instructions IM .COMPLEX Qty: 1 RF: 3 (DME) insulin pump controller Misc MISCELLANEOUS RF: 0 sodium chloride 1 gram tablet 1,000 mg PO BID PRN (Reason: orthostatic hypotension) RF: 0 Rexulti 1 mg tablet 1 mg PO DAILY Qty: 30 RF: 0 Fish Oil tablet 1,000 mg PO DAILY RF: 0 bupropion HCl 150 mg tablet extended release 24 hr 300 mg PO QAM RF: 0 propranolol [Inderal LA] 60 mg capsule,extended release 24 hr 60 mg PO HS RF: 0 trazodone 50 mg tablet 50 mg PO HS RF: 0 fluticasone propionate [Flovent HFA] 220 mcg/actuation HFA aerosol inhaler 220 mcg INHALATION QAM RF: 0 Referrals Referrals: Tamara Palomo PA-C [Primary Care Provider] - Discharge Problem: Intentional aspirin overdose Qualifiers: Encounter type: initial encounter Qualified Code(s): T39.012A - Poisoning by aspirin, intentional self-harm, initial encounter
[2021-10-22 02:52] LABS: Basophils # (auto) 0.02 K/uL (0-0.2); Basophils % (auto) 0.2 %; Eosinophils # (auto) 0.15 K/uL (0-0.5); Eosinophils % (auto) 1.8 %; Hematocrit (blood only) 37.6 % (37-47); Hemoglobin 12.9 g/dL (12.0-16.0); Immature Granulocytes # (auto) 0.01 K/uL (0.00-0.02); Immature Granulocytes % (auto) 0.1 %; Lymphocytes # (auto) 2.08 K/uL (1.2-3.4); Lymphocytes % (auto) 24.9 %; Mean Corpuscular Hemoglobin 29.9 pg (25-34); Mean Corpuscular Hgb Conc 34.3 g/dL (32-36); Mean Platelet Volume 11.2 fL (7.4-10.4); Monocytes # (auto) 0.84 K/uL (0.11-0.59); Monocytes % (auto) 10.1 %; Neutrophils # (auto) 5.24 K/uL (1.4-6.5); Neutrophils % (auto) 62.9 %; Platelet Count 264 K/uL (130-400); RDW Coefficient of Variation 12.2 % (11.5-14.5); Red Blood Count 4.32 M/uL (4.2-5.4); White Blood Count 8.34 K/uL (4.8-10.8)
[2021-10-22 03:10] LABS: Amphetamines+Metham, Urine Neg (Neg); Barbiturates, Urine Neg (Neg); Benzodiazepine, Urine Neg (Neg); Cocaine, Urine Neg (Neg); MDMA (Ecstacy), Urine Pos (Neg); Methadone, Urine Neg (Neg); Opiate, Urine Neg (Neg); Phencyclidine, Urine Neg (Neg)
[2021-10-22 03:12] LABS: Albumin Globulin Ratio 1.4 (0.9-2); Albumin Level 4.3 gm/dl (3.4-5.0); BUN Creatinine Ratio 17.5 (10-20); Bilirubin,Total 0.6 mg/dl (0.2-1.0); Calcium 9.3 mg/dl (8.5-10.1); Creatinine Clr Calc Pharmacy 91.2 ml/min; Est GFR (African American) 117.1 ml/min; Potassium 3.6 mmol/L (3.5-5.1); Total Protein 7.3 gm/dl (6.0-8.3)
[2021-10-22 03:32] LABS: Salicylate 39.5 mg/dl (3.0-30)
[2021-10-22 03:34] LABS: Acetaminophen < 3 ug/ml (10-30)
--- NOTE | 2021-10-22 05:52 | History & Physical Report ---
Date of Service October 22, 2021 Assessment & Plan (1) Intentional aspirin overdose: Plan: 26yo non-binary individual with a history of DM1, DKA, BPD, anxiety, and disordered eating presents after an intentional aspirin overdose. Salicylate toxicity Upon admission, VSS, patient with reduced hearing and tinnitus but otherwise asymptomatic EKG without arrhythmia or other concerning change Initial ASA level 39, potassium 3.6, other electrolytes wnl Discussed with poison control, who recommends: 3 amps NaHCO3 in 1L D5 with KCl 30mEq run at 250-500mL/hr until salicylate level<30 Repeat ASA and KCl q2h salicylate level<30 Repeat BMP until salicylate level<30 Patient is medically cleared for discharge once salicylate falls below 30 If patient develops agitation, may require benzos Continue home PPI Suicide attempt, NESHA, MDD, BPD Patient with an intentional overdose in the setting of multiple psychiatric comorbidities and prior attempts 1:1 sit, psychiatry precautions ordered Psychiatry consulted, appreciate recommendations Will continue home psych regimen for now DM1 Home meds held on admission Insulin management - Lantus 20u daily with ISS - Glycemic Management consultation appreciated. Patient has been evaluated by Pharmacy during prior admission BGS A1c ordered Resume home meds on discharge Migraine prophylaxis Continue home propranolol Asthma Patient without SOB at this time Continue home regimen Asymptomatic bacteriuria Patient without symptoms at this time, will hold off on intervention for now Culture pending FEN: bicarb in D5 with KCl @ 250mL/hr Code status: full code DVT ppx: not indicated Consults: poison control, psychiatry Case management: following Dispo: med/surg History of Present Illness Chief Complaint: ASA overdose Primary Care Provider: Tamara Palomo PA-C 26yo non-binary individual with a history of DM1, DKA, BPD, anxiety, and disordered eating presents after an intentional aspirin overdose. Patient notes they have been struggling to feel like themselves after an inpatient psychiatric stay a few months ago. Patient was feeling suicidal last night, and did call crisis, but then took ten 325mg aspirin tablets. Patient developed some reduced/ringing hearing in both ears since yesterday but says this has improved. Patient denies other symptoms recently or at the moment including fever, chills, sweating, headache, CP, SOB, abdominal pain, nausea, vomiting, constipation, diarrhea, or urinary symptoms. They report taking 12 325mg ASA yesterday and 13 325mg ASA the day before as well. Patient denies wanting to harm themselves last night, and says instead it was an impulsive decision. Patient does note taking twelve 325mg ASA the night before and thirteen the night before that, and admits knowing that their behavior could have been harmful. Patient denies current suicidal ideation, anxiety, impulsivity, AVH, or SI/HI at this time. Allergies Allergy/AdvReac Type Severity Reaction Status Date / Time gluten Allergy Severe CELIAC'S Verified 08/11/21 11:03 DISEASE Penicillins Allergy Severe ANAPHYLAXIS Verified 08/11/21 11:03 shellfish derived Allergy Severe ANAPHYLAXIS Verified 08/11/21 11:03 apple Allergy Intermediate THROAT Verified 08/11/21 11:03 SWELLS house dust Allergy Intermediate Hives Verified 08/11/21 11:03 oxcarbazepine Allergy Intermediate Rash,hives Verified 08/11/21 11:03 and itchiness. lactose AdvReac Intermediate Gatrointestinal Verified 08/11/21 11:03 Upset sumatriptan [From Imitrex] AdvReac Intermediate INTENSIFIES Verified 08/11/21 11:03 HEADACHE Home Medications Medication Instructions Recorded Confirmed Type insulin glargine 100 unit/mL (3 20 units SQ DAILY@16 PRN ml 11/26/18 10/22/21 History mL) subcutaneous pen (Basaglar KwikPen U-100 Insulin) inhalational spacing device #1 ea 03/27/19 10/22/21 Rx (Aerochamber MV) insulin pump controller 12/27/19 10/22/21 History comp.stocking,thigh,short,smal #2 ea 09/21/20 10/22/21 Rx fluticasone propionate 220 220 mcg INHALATION QAM 02/12/21 10/22/21 History mcg/actuation HFA aerosol inhaler (Flovent HFA) propranolol 60 mg capsule,24 60 mg PO HS 02/12/21 10/22/21 History hr,extended release (Inderal LA) trazodone 50 mg tablet 50 mg PO HS 02/12/21 10/22/21 History hydroxyzine HCl 25 mg tablet 25 mg PO DAILY PRN tab 05/12/21 10/22/21 History cholecalciferol (vitamin D3) 50 100 mcg PO DAILY cap 07/04/21 10/22/21 History mcg (2,000 unit) capsule ketorolac 10 mg tablet 10 mg PO Q6H PRN 07/04/21 10/22/21 History onabotulinumtoxinA 200 unit See Rx Instructions IM .COMPLEX #1 07/04/21 10/22/21 Rx solution for injection (Botox) jesus garnett.vits,mathieu,tpb-ipfb-rtfiy 1 tab PO DAILY 07/04/21 10/22/21 History vitamin E (dl, acetate) 45 mg (100 45 mg PO DAILY 07/04/21 10/22/21 History unit) capsule sodium chloride 1 gram tablet 1,000 mg PO BID PRN 07/20/21 10/22/21 History linaclotide 72 mcg capsule 72 mcg PO DAILY #30 cap 08/01/21 10/22/21 Rx (Linzess) brexpiprazole 1 mg tablet (Rexulti) 1 mg PO DAILY #30 tab 08/03/21 10/22/21 Rx acetone (urine) test (Ketostix) #100 ea 08/09/21 10/22/21 Rx glucagon 3 mg/actuation nasal spray 3 mg INTRANASAL PRN #2 ea 08/09/21 10/22/21 Rx insulin syringe-needle U-100 0.3 #100 ea 08/09/21 10/22/21 Rx mL 29 gauge x 1/2" (BD Insulin Syringe) insulin aspart U-100 100 unit/mL 100 unit CONTINUOUS SUBCUTANEOUS 09/08/21 10/22/21 Rx subcutaneous solution INFUSION CONTINOUS 90 Days #90 ml pantoprazole 40 mg tablet,delayed See Rx Instructions .ROUTE 09/22/21 10/22/21 Rx release .COMPLEX #30 tab Fish Oil 1,000 mg PO DAILY 10/22/21 10/22/21 History bupropion HCl 150 mg 24 hr tablet, 300 mg PO QAM 10/22/21 10/22/21 History extended release Past Med/Surg History Medical History Acid reflux disease (~2013) Allergic rhinitis Asthma Borderline personality disorder Celiac disease Chronic joint pain Depression Diabetic gastroparesis associated with type 1 diabetes mellitus (~2016) DKA (diabetic ketoacidoses) Generalized anxiety disorder Gilbert's syndrome Irritable bowel syndrome with constipation Lumbar radiculopathy Migraines Osteopenia Osteoporosis Type I diabetes mellitus (~2013) Surgical History History of cataract surgery History of colonoscopy History of esophagogastroduodenoscopy (EGD) History of strabismus surgery Family History Mother Alcohol abuse Adult celiac disease Osteoporosis Seizure Celiac disease Father Skin cancer squamous cell Drug abuse Alcohol abuse Anxiety Seizure Grandfather Alcohol abuse Uncle Drug abuse Alcohol abuse Brother Drug abuse Unknown Cancer Grandmother Diabetes Colorectal cancer Celiac disease Grandmother Type 1 diabetes Other Bipolar 1 disorder No family history of adverse response to anesthesia Denies family history of Ovarian cancer Prostate cancer Myocardial infarction Breast cancer Lung cancer Hypertension Social History Smoking Status: Former smoker Tobacco Type: Cigarettes Age Started Using Tobacco: 18; Age Quit Using Tobacco: 20; Cigarettes Per Day: 1 per month; Second Hand Exposure: Yes; Do You Dip or Chew Tobacco: No; Tobacco Cessation Education Requested by Patient: No Hx Alcohol Use: No Hx Substance Use: No Preferred Language: Sudanese Communication Ability: Effective Visual Impairment: No Limitations Hearing Ability: Normal Agent Ticketing Gate Required: No Beliefs That Will Affect Care: None marital status: Single Current Living Situation: Other Current Living Situation Comment: With landlord current occupational status: employed current occupation: [employer] Other Information That Helps Us Care for You: No Feels Safe at Home: Yes Safety Concerns: Feels Safe At This Time Childhood Exposure to Second-Hand Smoke: Yes caffeine: Yes Dental Care, Regularly: Yes Physical Activity Frequency: 3-4 Times per Week Physical Activity Frequency Comment: walks Seatbelt Use: always Sunscreen Use: Yes (when in the sun for an extended time) Assistive Devices: Glasses Review of Systems Review of Systems: All systems reviewed & are unremarkable except as noted in HPI & below Physical Exam Physical Exam: Constitutional: well-appearing, no acute distress, sitting up in hospital bed HEENT: NCAT, no conjunctival injection CV: regular rhythm, no murmur appreciated, extremities well-perfused, no LE edema Resp: CTABL, no wheezes/rales/rhonchi appreciated, no increased work of br eathing GI: soft, nondistended, nontender, BS normoactive Neuro: alert, oriented, no focal neurologic deficit appreciated Appearance: well-groomed, wearing hospital gown Behavior: calm, cooperative, eye contact fair Mood: "okay but a little overwhelmed" Affect: pleasant Speech: appropriate rate/quantity/volume Thought process: linear, coherent Thought content: appropriate to topic of discussion, denies SI/HI Results & Data Results & Data ([facility]) Vital Signs (Past 12 Hours) Vital Signs Temp Pulse Pulse Resp BP BP Pulse Ox 10/22/21 05:16 36.9 C 91 H 16 98/54 L 98 10/22/21 01:53 36.3 C L 103 H 20 100/73 96 Laboratory Results Laboratory Results WBC 8.34 K/uL (4.8-10.8) 10/22/21 02:35 RBC 4.32 M/uL (4.2-5.4) 10/22/21 02:35 Hgb 12.9 g/dL (12.0-16.0) 10/22/21 02:35 Hct 37.6 % (37-47) 10/22/21 02:35 MCV 87.0 fL (80-100) 10/22/21 02:35 MCH 29.9 pg (25-34) 10/22/21 02:35 MCHC 34.3 g/dL (32-36) 10/22/21 02:35 RDW Std Deviation 39.0 fL (36.4-46.3) 10/22/21 02:35 RDW Coeff of Keanu 12.2 % (11.5-14.5) 10/22/21 02:35 Plt Count 264 K/uL (130-400) 10/22/21 02:35 MPV 11.2 fL (7.4-10.4) H 10/22/21 02:35 Immature Gran % (Auto) 0.1 % 10/22/21 02:35 Neut % (Auto) 62.9 % 10/22/21 02:35 Lymph % (Auto) 24.9 % 10/22/21 02:35 [place] % (Auto) 10.1 % 10/22/21 02:35 Eos % (Auto) 1.8 % 10/22/21 02:35 Baso % (Auto) 0.2 % 10/22/21 02:35 Neut # (Auto) 5.24 K/uL (1.4-6.5) 10/22/21 02:35 Lymph # (Auto) 2.08 K/uL (1.2-3.4) 10/22/21 02:35 [place] # (Auto) 0.84 K/uL (0.11-0.59) H 10/22/21 02:35 Eos # (Auto) 0.15 K/uL (0-0.5) 10/22/21 02:35 Baso # (Auto) 0.02 K/uL (0-0.2) 10/22/21 02:35 Immature Gran # (Auto) 0.01 K/uL (0.00-0.02) 10/22/21 02:35 Sodium 137 mmol/L (136-145) 10/22/21 02:35 Potassium 3.6 mmol/L (3.5-5.1) 10/22/21 02:35 Chloride 104 mmol/L (98-107) 10/22/21 02:35 Carbon Dioxide 23 mmol/L (21-32) 10/22/21 02:35 Anion Gap 10 (3-11) 10/22/21 02:35 BUN 14 mg/dl (6-23) 10/22/21 02:35 Creatinine 0.80 mg/dl (0.6-1.2) 10/22/21 02:35 Est Cr Clr Drug Dosing 91.2 ml/min 10/22/21 02:35 Est GFR ( Amer) 117.1 ml/min 10/22/21 02:35 Est GFR (Non-Af Amer) 101.0 ml/min 10/22/21 02:35 BUN/Creatinine Ratio 17.5 (10-20) 10/22/21 02:35 Glucose 115 mg/dl (70-99(Fasting)) H 10/22/21 02:35 Calcium 9.3 mg/dl (8.5-10.1) 10/22/21 02:35 Total Bilirubin 0.6 mg/dl (0.2-1.0) 10/22/21 02:35 AST 14 U/L (13-39) 10/22/21 02:35 ALT 9 U/L (7-52) 10/22/21 02:35 Alkaline Phosphatase 54 U/L (34-104) 10/22/21 02:35 Total Protein 7.3 gm/dl (6.0-8.3) 10/22/21 02:35 Albumin 4.3 gm/dl (3.4-5.0) 10/22/21 02:35 Globulin 3.0 gm/dl (2.5-4.0) 10/22/21 02:35 Albumin/Globulin Ratio 1.4 (0.9-2) 10/22/21 02:35 TSH 2.613 uIu/ml (0.300-4.500) 10/22/21 02:35 Urine Color Dark Yellow 10/22/21 02:23 Urine Appearance Cloudy (Clear) A 10/22/21 02:23 Urine pH 5.5 (4.5-7.5) 10/22/21 02:23 Ur Specific Donovan 1.008 (1.000-1.030) 10/22/21 02:23 Urine Protein Negative (Negative) 10/22/21 02:23 Urine Glucose (UA) Negative (Negative) 10/22/21 02:23 Urine Ketones Negative (Negative) 10/22/21 02:23 Urine Blood Negative (Negative) 10/22/21 02:23 Urine Nitrite Positive (Negative) A 10/22/21 02:23 Urine Bilirubin Negative (Negative) 10/22/21 02:23 Urine Urobilinogen Negative (Negative) 10/22/21 02:23 Ur Leukocyte Esterase 3+ (Negative) H 10/22/21 02:23 Urine WBC (Auto) >30 /hpf (0-5) H 10/22/21 02:23 Urine RBC (Auto) 5-10 /hpf (0-4) H 10/22/21 02:23 U Hyaline Cast (Auto) 0 /lpf (0-5) 10/22/21 02:23 U Epithel Cells (Auto) >30 /lpf (0-5) H 10/22/21 02:23 Urine Bacteria (Auto) 2+ (Negative) H 10/22/21 02:23 POC Ur Test NEG (NEG) 10/22/21 02:27 Salicylates 36.0 mg/dl (3.0-30) H* 10/22/21 04:36 Urine Opiates Screen Neg (Neg) 10/22/21 02:23 Ur Methadone, Qual Neg (Neg) 10/22/21 02:23 Acetaminophen < 3 ug/ml (10-30) L 10/22/21 02:35 Urine Barbiturates Neg (Neg) 10/22/21 02:23 Ur Phencyclidine (PCP) Neg (Neg) 10/22/21 02:23 U Amphetamin/Meth Scrn Neg (Neg) 10/22/21 02:23 MDMA (Ecstasy) Screen Pos (Neg) H 10/22/21 02:23 U Benzodiazepines Scrn Neg (Neg) 10/22/21 02:23 Ur Cocaine Metabolite Neg (Neg) 10/22/21 02:23 U Marijuana (THC) Screen Neg (Neg) 10/22/21 02:23 Ethyl Alcohol mg/dL < 10.0 mg/dl (<10.0) 10/22/21 02:35 SARS-CoV-2, RNA, NAAT NEGATIVE (NEGATIVE) 10/22/21 02:38 Supervising Physician Co-Signing Physician Notes Patient seen and examined, chart reviewed, case discussed with Dr. Goss and I agree with the assessment an plan. In brief, patient is a 26yo non-binary person presenting with intentional ASA overdose. Patient reports the action was more in response to feeling overwhelmed rather than a true intent to end her life. She is struggling with recent change in employment as well as recent loss of her trusted therapist due to graduation. She admits to taking ASA 325mg tablets - 13 tabs three days ago, 12 tablets yesterday and 10 tablets today. She has some tinnitus and hearing loss - "feels like my headphones are in or I'm under water". No additional complaints. On exam she is afebrile, HD stable, non-toxic Skin - intact, no rash HEENT - MMM, Neck supple Heart - +S1/S2, regular, no m/r/g Lungs - CTA Abd - mildly tender diffusely without rebound/guarding or peritoneal signs Ext - warm, well perfused Labs and images reviewed. ASA level 39 -> 36 K within normal limits Assessment/Plan -Appreciate Poison Control assistance - patient to be treated with NaHCO3 gtt as above - frequent monitoring of ASA level and K Expect tinnitus and hearing loss to resolve after acute intoxication resolves -Check VBG -DM-I - Lantus 20u daily with ISS - Pharmacy consultation appreciated -Continue Propranolol for h/o migraine -Continue Protonix -Remainder as above Resident Activity Tracking Resident Involvement: Resident Care Provided Care Provided: Adult Hospital Medicine (1) Intentional aspirin overdose Encounter type: initial encounter Qualified Code(s): T39.012A - Poisoning by aspirin, intentional self-harm, initial encounter
[2021-10-22] MEDS: SODIUM BICARBONATE 8.4% 150 MEQ, POTASSIUM CHLORIDE 30 MEQ in DEXTROSE 5% 1,000 ML IV SCH ×2 (06:09→17:14)
[2021-10-22] MEDS ORDERED: DEXTROSE 50% 50 ML SYRINGE IV PRN ×2 (06:44→08:45)
[2021-10-22] MEDS ORDERED: GLUCOSE 40% GEL 15 GM TUBE PO PRN ×2 (06:44→08:45)
[2021-10-22] MEDS ORDERED: GLUCOSE 10 TABS/TUBE PO PRN ×2 (06:44→08:45)
[2021-10-22] MEDS ORDERED: GLUCAGON FOR INJ 1 MG VIAL SQ PRN ×2 (06:44→08:45)
[2021-10-22] MEDS ORDERED: CARBOHYDRATES FOR HYPOGLYCEMIA PO PRN ×2 (06:44→08:45)
--- NOTE | 2021-10-22 06:45 | Billing Data ---
Date of Service October 22, 2021 Coding Level of Care Code 98926 Initial Inpt Care Lvl 2
[2021-10-22] MEDS ORDERED: INSULIN ASPART PER UNIT SC SCH ×2 (07:30→12:00)
[2021-10-22 07:47] LABS: Albumin Globulin Ratio 1.5 (0.9-2); Albumin Level 3.9 gm/dl (3.4-5.0); BUN Creatinine Ratio 16.5 (10-20); Bilirubin,Total 0.6 mg/dl (0.2-1.0); Calcium 8.4 mg/dl (8.5-10.1); Creatinine Clr Calc Pharmacy 85.8 ml/min; Est GFR (African American) 108.8 ml/min; Est GFR (Non-African American) 93.9 ml/min; Globulin 2.6 gm/dl (2.5-4.0); Potassium 3.7 mmol/L (3.5-5.1); Total Protein 6.5 gm/dl (6.0-8.3)
[2021-10-22 07:51] LABS: Base Excess VBG 0.3 mEq/L; Oxygen Saturation VBG 80.1 %; pH VBG 7.45 (7.36-7.41)
[2021-10-22] MEDS ORDERED: PANTOprazole 40 MG TAB PO SCH (09:00)
[2021-10-22] MEDS ORDERED: linaCLOtide 72 MCG CAPSULE PO SCH (09:00)
[2021-10-22] MEDS ORDERED: FLUTICASONE FUROATE 100MCG 14 PUFFS/INHALER INH SCH (09:00)
[2021-10-22] MEDS ORDERED: buPROPion XL 300 MG TABCR PO SCH (09:00)
[2021-10-22] MEDS ORDERED: PHARMACY GLYCEMIC MGMT CONSULT PRN (10:46)
[2021-10-22] MEDS ORDERED: LANTUS PER UNIT CHARGE SQ ONE ×2 (11:30→17:00)
[2021-10-22] MEDS: INSULIN ASPART PER UNIT SC SCH ×3 (12:29→20:54)
--- NOTE | 2021-10-22 13:11 | Pharmacy Report ---
Pharmacy Glycemic Short Note 2 - Date of Service October 22, 2021 - Glycemic Short BSG Results (Last 24 hours): 10/22/21 10/22/21 10/22/21 02:35 06:46 06:50 Glucose 115 H 152 H POC Glucose 155 H 10/22/21 10/22/21 07:33 11:38 Glucose POC Glucose 180 H 176 H OUTPATIENT ANTIDIABETIC REGIMEN: * Novolog insulin pump ASSESSMENT: * TRINIDAD is a 26 year old female with T1DM, well known to pharmacy glycemic service * Presented overnight following intentional aspirin overdose * Initiated on sodium bicarb gtt mixed in dextrose @250 mL/hr, this has subsequently been discontinued * Diet ordered with lunch today * Confirmed with RN that insulin pump is not connected, patient agreeable to Lantus administration at dinnertime * Initial insulin regimen will be based on past inpatient data * BSGs ranging 155-180 mg/dL since time of admission PLAN FOR INPATIENT GLYCEMIC CONTROL: * Hold outpatient oral diabetes medications * Basal insulin * Lantus 20 units SC daily (to be given at 1700 today) * Bolus insulin * NovoLog per scale ACHS or Q6hrs while NPO * Goal Range: Low 110 mg/dL - High 140 mg/dL * Correction Factor: 50 mg/dL/unit * Nutritional / Prandial insulin per carb ratio of 1 unit per 8 grams CHO consumed
--- NOTE | 2021-10-22 14:06 | Communication Note ---
Date of Service: October 22, 2021 Yola is well known to me from previous stays/consults/ED visits. They are chronically high risk for suicide and will require inpatient psychiatric hospitalizaiton when medically cleared for a psych unit. Patient discussed with Drs. Wilcox and Zoie as patient must have stable PO intake/glucose control off of insulin pump after bicarb meets parameters for clearance. They completed PHQ-9 with liaison scoring 23, #2 on quesiton 9. Should remain on 1-on-1 on medical floor. They should not be allowed to leave AMA as meets involuntary commitment criteria. They are currently willing for 201 to 3S.
--- NOTE | 2021-10-22 16:51 | Communication Note ---
Date of Service: October 22, 2021 Patient, Yola, prefers pronouns they/them/their, seen at the bedside this morning. Patient states they feel the tinnitus has decreased and is only occasional right now but the decreased hearing has stayed at the same level. Patient denies lightheadedness, dizziness, fevers, chills, chest pain, shortness of breath. Yola states has some chronic abdominal pain mostly located in the LLQ that comes and goes. LMP was 1 week ago and menstrual periods come every 4-6 weeks. Gen Appearance: Not in any acute distress. Mood depressed, affect depressed however patient became more engaging as conversation went on. HEENT: AT/NC, PERRL, MMM. Heart: S1 and S2, mildly tachycardic, no murmurs. Lungs: Clear to auscultation bilaterally. Abdomen: BS+, soft, non-distended, mild tenderness to palpation LLQ and LUQ w/o guarding. Yola is a 26 year old non-binary individual w/ PmHx of T1DM, BPD, anxiety, disordered eating coming in for aspirin overdose. ASA Overdose: -Initial ASA level 39.5 -> 36 -> 34 -> 28 -> 22.8 -EKG w/o abnormalities. -Discussed with Poison Control -Given 3amps NaBicarb in 1L D5 while ASA levels >30 -ASA levels trended down x2 while <30 -Medically clear at this time. -Continue home PPI Suicide attempt, BPD, NESHA, MDD -Patient with an intentional overdose in the setting of multiple psychiatric comorbidities and prior attempts -1:1 sitter precautions ordered. -Psychiatry consulted, appreciate recommendations - high risk for suicide, will require inpatient psychiatric hospitalization when medically cleared. T1DM: -Patient usually on dexcom + pump at home, however did not bring -Lantus 20units w/ ISS. -Pharmacy glycemic consult in place. -Resume home medications on discharge Migraine Prophylaxis: -Continue home propranolol Asthma: -Patient without shortness of breath -Continue home medications. Asymptomatic bacteruria: -U/A w/ Nitrite, WBC, LE, 2+ bacteria; urine culture pending. -Patient without symptoms at this time, will hold off on intervention at this time. DVT Prophylaxis: None F/E/N/GI: T1DM Carb Consistent Code Status: Full code Dispo: Med/Surg w/ telemetry Attending Attestation: Patient seen and examined with PGY-1 Dr. Wilcox. Agree with history, exam findings, assessment and plan of care as outlined. In brief, Yola is a 26 year old nonbinary person (pronouns they/them) admitted following aspirin ingestion/overdose in a self harm attempt. Salicylate level has trended down nicely to 22.8. Bicarb gtt stopped. Anticipate that level will continue to downtrend. From this standpoint, she is medically stable for inpatient psychiatric unit. Basal bolus insulin ordered for glucose management as she will not be able to use her insulin pump on 3S. Psychiatry consulted for evaluation for inpatient psychiatric stay. [address] Safe tray[address] Appreciate psychiatry recommendations and assistance with disposition planning/coordination of care. Resident Activity Tracking Resident Involvement: Resident Care Provided Care Provided: Adult Hospital Medicine
--- NOTE | 2021-10-22 18:55 | Discharge Summary ---
Date of Service October 22, 2021 Admission HPI Per Admitting Provider 26yo non-binary individual with a history of DM1, DKA, BPD, anxiety, and disordered eating presents after an intentional aspirin overdose. Patient notes they have been struggling to feel like themselves after an inpatient psychiatric stay a few months ago. Patient was feeling suicidal last night, and did call crisis, but then took ten 325mg aspirin tablets. Patient developed some reduced/ringing hearing in both ears since yesterday but says this has improved. Patient denies other symptoms recently or at the moment including fever, chills, sweating, headache, CP, SOB, abdominal pain, nausea, vomiting, constipation, diarrhea, or urinary symptoms. They report taking 12 325mg ASA yesterday and 13 325mg ASA the day before as well. Patient denies wanting to harm themselves last night, and says instead it was an impulsive decision. Patient does note taking twelve 325mg ASA the night before and thirteen the night before that, and admits knowing that their behavior could have been harmful. Patient denies current suicidal ideation, anxiety, impulsivity, AVH, or SI/HI at this time. Admission Exam Per Admitting Provider Constitutional: well-appearing, no acute distress, sitting up in hospital bed HEENT: NCAT, no conjunctival injection CV: regular rhythm, no murmur appreciated, extremities well-perfused, no LE edema Resp: CTABL, no wheezes/rales/rhonchi appreciated, no increased work of breathing GI: soft, nondistended, nontender, BS normoactive Neuro: alert, oriented, no focal neurologic deficit appreciated Appearance: well-groomed, wearing hospital gown Behavior: calm, cooperative, eye contact fair Mood: "okay but a little overwhelmed" Affect: pleasant Speech: appropriate rate/quantity/volume Thought process: linear, coherent Thought content: appropriate to topic of discussion, denies SI/HI Principal Diagnosis Salicylate overdose Discharge Exam Constitutional WD/WN, vitals as above Eyes PERRL, conjunctivae normal, anicteric sclerae Respiratory normal respiratory effort, lungs clear to auscultation Cardiovascular RRR, no murmur, no edema Gastrointestinal (Abdomen) BS+, soft, non-distended, mild tenderness to palpation LLQ and LUQ, no guarding. Discharge Data Allergies Allergy/AdvReac Type Severity Reaction Status Date / Time gluten Allergy Severe CELIAC'S Verified 08/11/21 11:03 DISEASE Penicillins Allergy Severe ANAPHYLAXIS Verified 08/11/21 11:03 shellfish derived Allergy Severe ANAPHYLAXIS Verified 08/11/21 11:03 apple Allergy Intermediate THROAT Verified 08/11/21 11:03 SWELLS house dust Allergy Intermediate Hives Verified 08/11/21 11:03 oxcarbazepine Allergy Intermediate Rash,hives Verified 08/11/21 11:03 and itchiness. lactose AdvReac Intermediate Gatrointestinal Verified 08/11/21 11:03 Upset sumatriptan [From Imitrex] AdvReac Intermediate INTENSIFIES Verified 08/11/21 11:03 HEADACHE Consultations 10/22/21 05:25 ED Decision to Admit Stat 10/22/21 06:22 Consult Psychiatry Routine Hospital Course (1) Type I diabetes mellitus: (2) Suicide attempt: (3) Intentional aspirin overdose: (4) Anxiety: (5) Asthma: Yola is a 26 year old non-binary individual w/ PmHx of T1DM, BPD, anxiety, disordered eating coming in for aspirin overdose. ASA Overdose: -Initial ASA level 39.5 -> 36 -> 34 -> 28 -> 22.8 -EKG w/o abnormalities. -Discussed with Poison Control -Given 3amps NaBicarb in 1L D5 while ASA levels >30 -ASA levels trended down x2 while <30 -Medically clear at this time. -Continue home PPI Suicide attempt, BPD, NESHA, MDD -Patient with an intentional overdose in the setting of multiple psychiatric comorbidities and prior attempts -1:1 sitter precautions ordered. -Patient to be transferred to psychiatric inpatient [facility]. T1DM: -Patient usually on dexcom + pump at home, however did not bring -Lantus 20units w/ ISS. -Pharmacy glycemic consult in place. -Resume home medications on discharge Migraine Prophylaxis: -Continue home propranolol Asthma: -Patient without shortness of breath -Continue home medications. Asymptomatic bacteruria: -U/A w/ Nitrite, WBC, LE, 2+ bacteria; urine culture pending. -Patient without symptoms at this time, will hold off on intervention at this time. Total Time Total Time Spent Total Time Spent (In Minutes): Please see attending attestation. Discharge Plan Discharge Items Patient Disposition: Transfer Behavioral Health Fac Reason For Visit: INTENTIONAL OVERDOSE Discharge Diagnosis: Salicylate Overdose Activity: Per Instructions section Non-emergency contact: Primary Care Provider Call non-emergency contact if: your symptoms worsen, your pain is worsening and your temperature is above 101 Follow-up/Referrals: Tamara Palomo PA-C [Primary Care Provider] - Diet: Carb Count or DM1 Addtl Attending Provider Instructions: Yola is a 26 year old non-binary individual w/ PmHx of T1DM, BPD, anxiety, disordered eating coming in for aspirin overdose. ASA Overdose: -Initial ASA level 39.5 -> 36 -> 34 -> 28 -> 22.8 -EKG w/o abnormalities. -Discussed with Poison Control -Given 3amps NaBicarb in 1L D5 while ASA levels >30 -ASA levels trended down x2 while <30 -Medically clear at this time. -Continue home PPI Suicide attempt, BPD, NESHA, MDD -Patient with an intentional overdose in the setting of multiple psychiatric comorbidities and prior attempts -1:1 sitter precautions ordered. -Patient to be transferred to psychiatric inpatient. T1DM: -Patient usually on dexcom + pump at home, however did not bring -Lantus 20units w/ ISS. -Pharmacy glycemic consult in place. -Resume home medications on discharge Migraine Prophylaxis: -Continue home propranolol Asthma: -Patient without shortness of breath -Continue home medications. Asymptomatic bacteruria: -U/A w/ Nitrite, WBC, LE, 2+ bacteria; urine culture pending. -Patient without symptoms at this time, will hold off on intervention at this time. Pending Studies at Discharge: No Stand-Alone Forms: [facility] Medications and DC Order Prescriptions: Continued Basaglar KwikPen U-100 Insulin 100 unit/mL (3 mL) insulin pen 20 units SQ DAILY@16 PRN (Reason: Novolog Pump Failure) RF: 0 insulin aspart U-100 100 unit/mL solution 100 unit continuous subcutaneous infusion CONTINOUS 90 Days Qty: 90 RF: 1 pantoprazole 40 mg tablet,delayed release (DR/EC) See Rx Instructions .ROUTE .COMPLEX Qty: 30 RF: 2 (DME) Aerochamber MV spacer See Rx Instructions .ROUTE .MEDSUPPLY Qty: 1 RF: 0 hydroxyzine HCl 25 mg tablet 25 mg PO DAILY PRN (Reason: Anxiety) RF: 0 (DME) Ketostix Strip See Rx Instructions .ROUTE .MEDSUPPLY Qty: 100 RF: 2 glucagon 3 mg/actuation spray,non-aerosol 3 mg intranasal PRN Qty: 2 RF: 3 (DME) insulin syringe-needle U-100 [BD Insulin Syringe] 0.3 mL 29 gauge x 1/2" syringe See Rx Instructions .Route Qty: 100 RF: 3 (DME) comp.stocking,thigh,short,smal Misc See Rx Instructions .ROUTE .MEDSUPPLY Qty: 2 RF: 1 Linzess 72 mcg capsule 72 mcg PO DAILY Qty: 30 RF: 11 ketorolac 10 mg tablet 10 mg PO Q6H PRN (Reason: Pain) RF: 0 vitamin E (dl, acetate) 45 mg (100 unit) capsule 45 mg PO DAILY RF: 0 cholecalciferol (vitamin D3) 50 mcg (2,000 unit) capsule 100 mcg PO DAILY RF: 0 prenat.vits,mathieu,fuq-hgnq-ginns Tablet 1 tab PO DAILY RF: 0 Botox 200 unit recon soln See Rx Instructions IM .COMPLEX Qty: 1 RF: 3 (DME) insulin pump controller Misc MISCELLANEOUS RF: 0 sodium chloride 1 gram tablet 1,000 mg PO BID PRN (Reason: orthostatic hypotension) RF: 0 Rexulti 1 mg tablet 1 mg PO DAILY Qty: 30 RF: 0 Fish Oil tablet 1,000 mg PO DAILY RF: 0 bupropion HCl 150 mg tablet extended release 24 hr 300 mg PO QAM RF: 0 propranolol [Inderal LA] 60 mg capsule,extended release 24 hr 60 mg PO HS RF: 0 trazodone 50 mg tablet 50 mg PO HS RF: 0 fluticasone propionate [Flovent HFA] 220 mcg/actuation HFA aerosol inhaler 220 mcg INHALATION QAM RF: 0 Discharge Orders: Discharge Order (Routine); Ordered 10/22/21 Ordered By: Ethan Wilcox Admission Data Admit Date/Time: 10/22/21 06:22 Attending Provider: Suzanne Lino Admit Provider: Ryder Goss Primary Care Provider: Tamara Palomo Other Providers: Kamilla Ambrocio ; Mary Elizabeth ; Viri Cabrera ; Tata Bates Supervising Physician Co-Signing Physician Notes Patient seen and examined with PGY-1 Dr. Wilcox. Agree with history, exam findings, assessment and plan of care as outlined. In brief, Yola is a 26 year old nonbinary person (pronouns they/them) admitted following aspirin ingestion/overdose in a self harm attempt. Salicylate level has trended down nicely to 22.8. Bicarb gtt stopped. Anticipate that level will continue to downtrend. From this standpoint, they are medically stable for inpatient psychiatric unit. Basal bolus insulin ordered for glucose management as they will not be able to use their insulin pump on 3S. Blood sugars have been within reasonable ranges. Psychiatry consulted for evaluation for inpatient psychiatric stay. [address] tray[address] Appreciate psychiatry recommendations and assistance with disposition planning/coordination of care. Discharge to [facility] this evening. I personally spent 25 minutes discharge planning for this patient. Resident Activity Tracking Resident Involvement: Resident Care Provided Care Provided: Adult Hospital Medicine
[2021-10-22] MEDS ORDERED: traZODone HCL 50 MG TAB PO SCH (21:00)
[2021-10-22] MEDS ORDERED: PROPRANOLOL HCL 60 MG LA CAP PO SCH (21:00)
[2021-10-22] MEDS ORDERED: ALUMINUM/MAGNESIUM SUSP 30 ML UDC PO PRN (21:25)
[2021-10-22] MEDS ORDERED: BISMUTH SUBSALICYLATE LIQD 236 ML PO PRN (21:25)
[2021-10-22] MEDS ORDERED: MAGNESIUM HYDROXIDE SUSP 30 ML UDC PO PRN (21:25)
[2021-10-22] MEDS ORDERED: SODIUM CHLORIDE 0.65% NA SOLN 45 ML (OCEAN) PRN (21:25)
[2021-10-22] MEDS ORDERED: hydrOXYzine HCl 25 MG TAB PO PRN ×2 (21:25)
[2021-10-22] MEDS ORDERED: ACETAMINOPHEN 325 MG TAB PO PRN (21:25)
--- NOTE | 2021-10-23 07:59 | Psychiatric Consultation ---
Date of Consultation October 23, 2021 Psych History History of Present Illness see supplemental communication note. The patient was admitted to when medically cleared, time on floor <12 hrs. Allergies Allergy/AdvReac Type Severity Reaction Status Date / Time gluten Allergy Severe CELIAC'S Verified 08/11/21 11:03 DISEASE Penicillins Allergy Severe ANAPHYLAXIS Verified 08/11/21 11:03 shellfish derived Allergy Severe ANAPHYLAXIS Verified 08/11/21 11:03 apple Allergy Intermediate THROAT Verified 08/11/21 11:03 SWELLS house dust Allergy Intermediate Hives Verified 08/11/21 11:03 oxcarbazepine Allergy Intermediate Rash,hives Verified 08/11/21 11:03 and itchiness. lactose AdvReac Intermediate Gatrointestinal Verified 08/11/21 11:03 Upset sumatriptan [From Imitrex] AdvReac Intermediate INTENSIFIES Verified 08/11/21 11:03 HEADACHE Home Medications Medication Instructions Recorded Confirmed Type insulin glargine 100 unit/mL (3 20 units SQ DAILY@16 PRN ml 11/26/18 10/22/21 History mL) subcutaneous pen (Basaglar KwikPen U-100 Insulin) inhalational spacing device #1 ea 03/27/19 10/22/21 Rx (Aerochamber MV) insulin pump controller 12/27/19 10/22/21 History comp.stocking,thigh,short,smal #2 ea 09/21/20 10/22/21 Rx fluticasone propionate 220 220 mcg INHALATION QAM 02/12/21 10/22/21 History mcg/actuation HFA aerosol inhaler (Flovent HFA) propranolol 60 mg capsule,24 60 mg PO HS 02/12/21 10/22/21 History hr,extended release (Inderal LA) trazodone 50 mg tablet 50 mg PO HS 02/12/21 10/22/21 History hydroxyzine HCl 25 mg tablet 25 mg PO DAILY PRN tab 05/12/21 10/22/21 History cholecalciferol (vitamin D3) 50 100 mcg PO DAILY cap 07/04/21 10/22/21 History mcg (2,000 unit) capsule ketorolac 10 mg tablet 10 mg PO Q6H PRN 07/04/21 10/22/21 History onabotulinumtoxinA 200 unit See Rx Instructions IM .COMPLEX #1 07/04/21 10/22/21 Rx solution for injection (Botox) ea prenat.vits,mathieu,ose-uosj-sqpih 1 tab PO DAILY 07/04/21 10/22/21 History vitamin E (dl, acetate) 45 mg (100 45 mg PO DAILY 07/04/21 10/22/21 History unit) capsule sodium chloride 1 gram tablet 1,000 mg PO BID PRN 07/20/21 10/22/21 History linaclotide 72 mcg capsule 72 mcg PO DAILY #30 cap 08/01/21 10/22/21 Rx (Linzess) brexpiprazole 1 mg tablet (Rexulti) 1 mg PO DAILY #30 tab 08/03/21 10/22/21 Rx acetone (urine) test (Ketostix) #100 ea 08/09/21 10/22/21 Rx glucagon 3 mg/actuation nasal spray 3 mg INTRANASAL PRN #2 ea 08/09/21 10/22/21 Rx insulin syringe-needle U-100 0.3 #100 ea 08/09/21 10/22/21 Rx mL 29 gauge x 1/2" (BD Insulin Syringe) insulin aspart U-100 100 unit/mL 100 unit CONTINUOUS SUBCUTANEOUS 09/08/21 10/22/21 Rx subcutaneous solution INFUSION CONTINOUS 90 Days #90 ml pantoprazole 40 mg tablet,delayed See Rx Instructions .ROUTE 09/22/21 10/22/21 Rx release .COMPLEX #30 tab Fish Oil 1,000 mg PO DAILY 10/22/21 10/22/21 History bupropion HCl 150 mg 24 hr tablet, 300 mg PO QAM 10/22/21 10/22/21 History extended release Personal History Beliefs That Will Affect Care: None Patient History Medical History Acid reflux disease (~2013) Allergic rhinitis Asthma Borderline personality disorder Celiac disease Chronic joint pain Depression Diabetic gastroparesis associated with type 1 diabetes mellitus (~2016) DKA (diabetic ketoacidoses) Generalized anxiety disorder Gilbert's syndrome Irritable bowel syndrome with constipation Lumbar radiculopathy Migraines Osteopenia Osteoporosis Type I diabetes mellitus (~2013) Surgical History History of cataract surgery History of colonoscopy History of esophagogastroduodenoscopy (EGD) History of strabismus surgery Family History Mother Alcohol abuse Adult celiac disease Osteoporosis Seizure Celiac disease Father Skin cancer squamous cell Drug abuse Alcohol abuse Anxiety Seizure Grandfather Alcohol abuse Uncle Drug abuse Alcohol abuse Brother Drug abuse Unknown Cancer Grandmother Diabetes Colorectal cancer Celiac disease Grandmother Type 1 diabetes Other Bipolar 1 disorder No family history of adverse response to anesthesia Denies family history of Ovarian cancer Prostate cancer Myocardial infarction Breast cancer Lung cancer Hypertension Social History Smoking Status: Former smoker Tobacco Type: Cigarettes Age Started Using Tobacco: 18; Age Quit Using Tobacco: 20; Cigarettes Per Day: 1 per month; Second Hand Exposure: Yes; Hx Alcohol Use: No Hx Substance Use: No Preferred Language: Trinidadian Communication Ability: Effective Visual Impairment: No Limitations Hearing Ability: Normal Lease Administration Supervisor Required: No Beliefs That Will Affect Care: None marital status: Single Current Living Situation: Other Current Living Situation Comment: With landlord current occupational status: employed current occupation: [employer] Feels Safe at Home: Yes Childhood Exposure to Second-Hand Smoke: Yes caffeine: Yes Dental Care, Regularly: Yes Physical Activity Frequency: 3-4 Times per Week Physical Activity Frequency Comment: walks Seatbelt Use: always Sunscreen Use: Yes (when in the sun for an extended time) Assistive Devices: Glasses Physical Exam Vital Signs (Past 24 Hours): Last Vital Signs Temp 36.6 C 10/22/21 22:19 Pulse 97 H 10/22/21 22:19 Resp 16 10/22/21 22:19 BP 106/72 10/22/21 22:19 Pulse Ox 98 10/22/21 22:19 Coding Level of Care Code None
== END 2021-10-22 22:20 | DRG 918 ==
LOC: SUATTDRO → ED 01:51 → SUATTDRO 06:22 → EDINP 06:22 → 2N 09:30

== ENCOUNTER 2021-10-22 21:37 | Inpatient (IN) ==
[2021-10-22] MEDS ORDERED: BISMUTH SUBSALICYLATE LIQD 236 ML PO PRN (21:39)
[2021-10-22] MEDS ORDERED: hydrOXYzine HCl 25 MG TAB PO PRN ×2 (21:39)
[2021-10-22] MEDS ORDERED: ALUMINUM/MAGNESIUM SUSP 30 ML UDC PO PRN (21:39)
[2021-10-22] MEDS ORDERED: MAGNESIUM HYDROXIDE SUSP 30 ML UDC PO PRN (21:39)
[2021-10-22] MEDS ORDERED: SODIUM CHLORIDE 0.65% NA SOLN 45 ML (OCEAN) PRN (21:39)
[2021-10-22] MEDS ORDERED: PHARMACY GLYCEMIC MGMT CONSULT PRN (21:48)
[2021-10-22] MEDS: traZODone HCL 50 MG TAB PO SCH (23:49)
[2021-10-22] MEDS: PROPRANOLOL HCL 60 MG LA CAP PO SCH (23:51)
[2021-10-23] MEDS ORDERED: GLUCAGON FOR INJ 1 MG VIAL IM PRN (01:15)
[2021-10-23] MEDS ORDERED: DEXTROSE 50% 50 ML SYRINGE IV PRN (01:15)
[2021-10-23] MEDS ORDERED: GLUCOSE 10 TABS/TUBE PO PRN (01:15)
[2021-10-23] MEDS ORDERED: GLUCOSE 40% GEL 15 GM TUBE PO PRN (01:15)
[2021-10-23] MEDS ORDERED: CARBOHYDRATES FOR HYPOGLYCEMIA PO PRN (01:15)
[2021-10-23] MEDS: INSULIN ASPART PER UNIT SC SCH ×4 (08:48→22:18)
[2021-10-23] MEDS ORDERED: SODIUM CHLORIDE 1 GM TABLET PO PRN (09:39)
[2021-10-23] MEDS: OMEGA-3 (PURIFIED FISH OIL) 1 GM CAP PO SCH (10:45)
[2021-10-23] MEDS: buPROPion XL 300 MG TABCR PO SCH (10:45)
[2021-10-23] MEDS: linaCLOtide 72 MCG CAPSULE PO SCH (10:45)
[2021-10-23] MEDS: FLUTICASONE FUROATE 100MCG 14 PUFFS/INHALER INH SCH (10:47)
[2021-10-23] MEDS: CHOLECALCIFEROL 1,000 UNITS 25 MCG TAB PO SCH (11:22)
[2021-10-23] MEDS: PANTOprazole 40 MG TAB PO SCH ×2 (11:23→11:24)
--- NOTE | 2021-10-23 13:24 | Pharmacy Report ---
Pharmacy Glycemic Short Note 2 - Date of Service October 23, 2021 - Glycemic Short BSG Results (Last 24 hours): 10/23/21 10/23/21 10/23/21 00:11 08:11 12:57 POC Glucose 213 H 168 H 94 OUTPATIENT ANTIDIABETIC REGIMEN: * Novolog pump * HbA1C = 10.5% (08/04/21) ASSESSMENT: * Patient is a 26 y/o T1DM who presents to [facility]. Insulin pump removed yesterday evening and lantus 20 units given at 1700. * BSGs yesterday were 180-176-127 (when pump removed)-238 and today are 168-94 mg/dL. * Patient previously known to glycemic service so will continue previous regimen of Lantus 20 units daily @ 1700, Novolog CF 50 CR 8. * Prior to change to glycemic regimen will reach out to patient. PLAN FOR INPATIENT GLYCEMIC CONTROL: * Basal insulin * Lantus 20 units SQ Daily@1700 * Bolus insulin * NovoLog per scale ACHS or Q6hrs while NPO * Goal Range: Low 110 mg/dL - High 140 mg/dL * Correction Factor: 50 mg/dL/unit * Nutritional / Prandial insulin per carb ratio of 1 unit per 8 grams CHO consumed
[2021-10-23] MEDS: INSULIN GLARGINE SOLOSTAR 100 UNITS/ML 3 ML PEN SC SCH (17:41)
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
[2021-10-23] MEDS ORDERED: POLYETHYLENE (MIRALAX) 17 GM PACK PO PRN (18:33)
[2021-10-23] MEDS: SENNA 8.6 MG TAB PO SCH (19:54)
[2021-10-23] MEDS: PROPRANOLOL HCL 60 MG LA CAP PO SCH (21:55)
[2021-10-23] MEDS: traZODone HCL 50 MG TAB PO SCH (22:18)
[2021-10-24] MEDS: INSULIN ASPART PER UNIT SC SCH ×4 (09:14→22:20)
[2021-10-24] MEDS: CHOLECALCIFEROL 1,000 UNITS 25 MCG TAB PO SCH (09:42)
[2021-10-24] MEDS: buPROPion XL 300 MG TABCR PO SCH (09:42)
[2021-10-24] MEDS: TOCOPHERYL, DL-ALPHA 100 UNITS CAP PO SCH (09:43)
[2021-10-24] MEDS: OMEGA-3 (PURIFIED FISH OIL) 1 GM CAP PO SCH (09:44)
[2021-10-24] MEDS: FLUTICASONE FUROATE 100MCG 14 PUFFS/INHALER INH SCH (09:45)
[2021-10-24] MEDS: linaCLOtide 72 MCG CAPSULE PO SCH (09:45)
[2021-10-24] MEDS: PRENATAL VITAMIN 1 TAB PO SCH (09:46)
[2021-10-24] MEDS: SENNA 8.6 MG TAB PO SCH (09:47)
--- NOTE | 2021-10-24 09:50 | Psychiatric Progress Note ---
Date of Service October 24, 2021 Impression / Recommendations Impression 26 yo nonbinary person with recurrent SIB and suicide attempts s/p toxic ASA ingestion necessitating medical admission. Currently reports therapist of 2+ years graduated and this transition has been stressful as has been seeing twice a week plus DBT group. 10/24/21: unchanged, continue MNPR as non-binary. (1) Depression: (2) Borderline personality disorder: (3) Irritable bowel syndrome with constipation: (4) Celiac disease: (5) Type I diabetes mellitus: 10/24/21: consider Rexulti 2 mg retrial as outpatient, given that actions are driven by BPD and direct response to perceived abandonment by therapist, less likely to rx naltrexone trial. outpatient provider concurs that Wellbutrin helpful. 10/23/21: The patient was admitted to the [facility] ([facility] mental [facility] unit) on q15 min checks (behavioral with suicide precautions) for safety. The patient will participate in group, recreational, and milieu therapies and will be offered additional individual and family sessions as clinically appropriate. coordinate care with [facility] psych clinic. insulin pump out for safety on unit with glucose/insulin management by pharmacy. Linzess is non formulary so requesting miralax prn and senna to approximate. Rexulti is also non-formulary and is declining substitution. Inventory Assets Strengths: consistent with therapy up to this point, working Needs: safety plan, ongoing med management Suicide Risk Level Suicide Risk Level: High (q15 min suicide checks) (s/p ingestion, more ambivalent than actively SI at this time, agrees to seek out staff) Risk Factors Assessment : Yes Do You Have Access To A Gun?: Yes (landlord/housemate has firearm) Health Problems: Yes Mental Health Diagnoses: Yes Substance Use Disorders: No Previous Attempt: Yes Previous Psychiatric Hospitalization: Yes Protective Factors Assessment Employed: Yes Interval History Identifying Information MAYA MEYERS, prefers non-binary Yola is a 26-year-old genetic F who currently lives in [place], has a history of mutiple hospitalizations/suicide attempts, and was admitted on 10/22/21 22:21 on a 201 voluntary commitment on transfer from the medical floor s/p ASA ingestion with cinchonism. Chief Complaint "How's it going, going I guess", lying in bed clutching stuffed animal. Review of Systems Sleep Information Total Hours of Sleep: 6.5 Sleep Comments: pt given trazodone per rn. pt on q-15 minute checks Meal Information Percent Meal Consumed - Breakfast: 75 Percent Meal Consumed - Lunch: 25 Percent Meal Consumed - Dinner: 50 Subjective Subjective Patient was seen & assessed and interval progress reviewed with nursing and social work. Essentially no changes. Has settled into unit routine and is less focussed on various triggers. Rexulti is not available through non-formulary request. Will d/c order as no one to provide. Case reviewed with psych clinic provider. Patient was doing well until therapist transition. Prescriber has made herself readily available and patient has not followed safety plan pending reassignment, no therapist identified. Physical Exam Psychiatric Orientation: alert and oriented x 3 Apperance: appropriately dressed and appropriately groomed Eye Contact: good eye contact Motor Behavior: no abnormal motor movements Speech: normal rate/rhythm/volume of speech Affect: + depressed affect Mood: + depressed mood Thought Process: goal directed thought process Thought Content: reality based without delusions Suicidal Thoughts: denies suicidal thoughts (per see but ambivalent about being alive) and denies suicidal intent (no intent on unit and contracts to go to staff thought splits); + reports suicidal plan (long standing multistep plan re; her meds and pump) Homicidal Thoughts: denies homicidal thoughts Hallucinations: no auditory hallucinations and no visual hallucinations Cognition: attention grossly intact and language grossly intact Estimated Intelligence: consistent with education level Insight: + limited insight Judgement: + limited judgement Vital Signs (Past 24 Hours) Last Vital Signs Temp 37 C 10/24/21 06:55 Pulse 86 10/24/21 06:55 Resp 16 10/24/21 06:55 BP 85/61 L 10/24/21 06:55 Pulse Ox 95 10/22/21 22:39 Results & Data ([facility]) Laboratory Results Laboratory Results - last 24 hr 10/23/21 10/23/21 10/23/21 12:57 17:03 20:43 POC Glucose 94 151 H 102 H 10/24/21 08:14 POC Glucose 106 H Current Inpatient Medications Current Inpatient Medications: Current Inpatient Medications Al Hydrox/Mg Hydrox/Simethicone (Aluminum/Magnesium Susp 30 Ml Udc) 30 ml PO Q4H PRN PRN Reason: GI Upset Stop: 11/21/21 21:38 Bismuth Subsalicylate (Bismuth Subsalicylate Liqd 236 Ml) 15 ml PO PRN PRN PRN Reason: Loose Stool Stop: 11/21/21 21:38 Bupropion HCl (Bupropion Xl 300 Mg Tabcr) 300 mg PO QAM [facility] Stop: 11/22/21 10:29 Last Admin: 10/24/21 09:42 Dose: 300 mg Documented by: Dextrose (Dextrose 50% 50 Ml Syringe) 25 - 50 ml IV UD PRN; Protocol PRN Reason: Hypoglycemia Protocol Stop: 11/22/21 01:14 Fish Oil ([place]-3 (Purified Fish Oil) 1 Gm Cap) 1 gm PO QAM [facility] Stop: 11/22/21 10:29 Last Admin: 10/24/21 09:44 Dose: 1 gm Documented by: Fluticasone Furoate (Fluticasone Furoate 100mcg 14 Puffs/Inhaler) 1 puffs [facility]H [facility] Stop: 11/22/21 10:29 Last Admin: 10/24/21 09:45 Dose: 1 puffs Documented by: Glucagon (Glucagon For Inj 1 Mg Vial) 1 mg IM UD PRN; Protocol PRN Reason: Hypoglycemia Protocol Stop: 11/22/21 01:14 Glucose (Glucose 40% Gel 15 Gm Tube) 15 - 30 gm PO UD PRN; Protocol PRN Reason: Hypoglycemia Protocol Stop: 11/22/21 01:14 Glucose (Glucose 10 Tabs/Tube) 4 - 8 tabs PO UD PRN; Protocol PRN Reason: Hypoglycemia Protocol Stop: 11/22/21 01:14 Hydroxyzine HCl (Hydroxyzine Hcl 25 Mg Tab) 50 mg PO HSZ PRN PRN Reason: Insomnia Stop: 11/21/21 21:38 Hydroxyzine HCl (Hydroxyzine Hcl 25 Mg Tab) 25 mg PO Q4H PRN PRN Reason: Anxiety Stop: 11/21/21 21:38 Insulin Aspart (Insulin Aspart Per Unit) 0 units SC ACHS [facility] Stop: 11/22/21 07:59 Last Admin: 10/24/21 09:14 Dose: 3 units Documented by: Insulin Glargine (Insulin Glargine Solostar 100 Units/Ml 3 Ml Pen) 20 units SC DAILY@1700 [facility] Stop: 11/22/21 16:59 Last Admin: 10/23/21 17:41 Dose: 20 units Documented by: Linaclotide (Linaclotide 72 Mcg Capsule) 72 mcg PO DAILY [facility] Stop: 11/22/21 10:29 Last Admin: 10/24/21 09:45 Dose: 72 mcg Documented by: Magnesium Hydroxide (Magnesium Hydroxide Susp 30 Ml Udc) 30 ml PO DAILY PRN PRN Reason: Constipation Stop: 11/21/21 21:38 Miscellaneous (Carbohydrates For Hypoglycemia ) 15 - 30 gm PO UD PRN PRN Reason: Hypoglycemia Treatment Stop: 11/22/21 01:14 Miscellaneous (Rexulti 1 Mg Tablet ~ Order Awaiting Action) 1 ea N/A QS [facility] Stop: 11/22/21 15:59 Last Admin: 10/24/21 09:41 Dose: Not Given Documented by: Miscellaneous Information (Pharmacy Glycemic Mgmt Consult) 1 ea N/A UD PRN PRN Reason: Consult Stop: 11/21/21 21:47 Pantoprazole Sodium (Pantoprazole 40 Mg Tab) 40 mg PO DAILY [facility] Stop: 11/22/21 10:29 Last Admin: 10/23/21 11:24 Dose: 40 mg Documented by: Polyethylene Glycol (Polyethylene (Miralax) 17 Gm Pack) 17 gm PO DAILY PRN PRN Reason: Constipation Stop: 11/22/21 18:32 Prenat Multivit/[place]/Iron/Folic Ac ( Vitamin 1 Tab) 1 tab PO QAM [facility] Stop: 11/23/21 08:59 Last Admin: 10/24/21 09:46 Dose: 1 tab Documented by: Propranolol HCl (Propranolol Hcl 60 Mg La Cap) 60 mg PO HS [facility] Stop: 11/21/21 21:59 Last Admin: 10/23/21 21:55 Dose: 60 mg Documented by: Sennosides (Senna 8.6 Mg Tab) 8.6 mg PO QAM [facility] Stop: 11/22/21 18:44 Last Admin: 10/24/21 09:47 Dose: 8.6 mg Documented by: Sodium Chloride (Sodium Chloride 0.65% Na Soln 45 Ml ([place])) 1 - 2 sprays NA PRN PRN PRN Reason: Nasal Dryness/Congestion Stop: 11/21/21 21:38 Sodium Chloride (Sodium Chloride 1 Gm Tablet) 1 gm PO BID PRN PRN Reason: orthostatic hypotension Stop: 11/22/21 09:38 Trazodone HCl (Trazodone Hcl 50 Mg Tab) 50 mg PO HS [facility] Stop: 11/21/21 21:59 Last Admin: 10/23/21 22:18 Dose: 50 mg Documented by: Vitamin D (Cholecalciferol 1,000 Units 25 Mcg Tab) 4,000 units PO DAILY [facility] Stop: 11/22/21 10:29 Last Admin: 10/24/21 09:42 Dose: 4,000 units Documented by: Vitamin E (Tocopheryl, Dl-Alpha 100 Units Cap) 400 units PO QAM [facility] Stop: 11/23/21 08:59 Last Admin: 10/24/21 09:43 Dose: 400 units Documented by: Post Discharge Appointments Primary Care Physician Name Of Family Doctor: Tamara Palomo (1) Type I diabetes mellitus Diabetes mellitus complication status: with other specified complication Qualified Code(s): E10.69 - Type 1 diabetes mellitus with other specified complication
[2021-10-24] MEDS: INSULIN GLARGINE SOLOSTAR 100 UNITS/ML 3 ML PEN SC SCH (17:45)
[2021-10-24] MEDS: PROPRANOLOL HCL 60 MG LA CAP PO SCH (22:25)
[2021-10-24] MEDS: traZODone HCL 50 MG TAB PO SCH (22:25)
[2021-10-25] MEDS ORDERED: INSULIN ASPART PER UNIT SC SCH (02:00)
[2021-10-25] MEDS: buPROPion XL 300 MG TABCR PO SCH (09:26)
[2021-10-25] MEDS: SENNA 8.6 MG TAB PO SCH (09:26)
[2021-10-25] MEDS: PANTOprazole 40 MG TAB PO SCH (09:27)
[2021-10-25] MEDS: OMEGA-3 (PURIFIED FISH OIL) 1 GM CAP PO SCH (09:27)
[2021-10-25] MEDS: PRENATAL VITAMIN 1 TAB PO SCH (09:27)
[2021-10-25] MEDS: TOCOPHERYL, DL-ALPHA 100 UNITS CAP PO SCH (09:28)
[2021-10-25] MEDS: CHOLECALCIFEROL 1,000 UNITS 25 MCG TAB PO SCH (09:29)
[2021-10-25] MEDS: linaCLOtide 72 MCG CAPSULE PO SCH (09:30)
[2021-10-25] MEDS: FLUTICASONE FUROATE 100MCG 14 PUFFS/INHALER INH SCH (09:31)
[2021-10-25] MEDS: INSULIN ASPART PER UNIT SC SCH ×4 (09:40→21:18)
--- NOTE | 2021-10-25 16:51 | Psychiatric Progress Note ---
Date of Service October 25, 2021 Impression / Recommendations Impression 26 yo nonbinary person with recurrent SIB and suicide attempts s/p toxic ASA ingestion necessitating medical admission. Currently reports therapist of 2+ years graduated and this transition has been stressful as has been seeing twice a week plus DBT group. 10/25/21: unchanged, continue MNPR as non-binary. (1) Depression: (2) Borderline personality disorder: (3) Irritable bowel syndrome with constipation: (4) Celiac disease: (5) Type I diabetes mellitus: 10/25/21: risks/benefits/alternatives reviewed re: retrial of Zoloft in combination with Wellbutrin as they report positive response for mood/anxiety and benefit from Wellbutrin but in different ways. Would not commit to any changes in Rexulti. Needs support person meeting. 10/24/21: consider Rexulti 2 mg retrial as outpatient, given that actions are driven by BPD and direct response to perceived abandonment by therapist, less likely to rx naltrexone trial. outpatient provider concurs that Wellbutrin helpful. 10/23/21: The patient was admitted to the [facility] ([facility] inpatient mental health unit) on q15 min checks (behavioral with suicide precautions) for safety. The patient will participate in group, recreational, and milieu therapies and will be offered additional individual and family sessions as clinically appropriate. coordinate care with [facility] psych clinic. insulin pump out for safety on unit with glucose/insulin management by pharmacy. Linzess is non formulary so requesting miralax prn and senna to approximate. Rexulti is also non-formulary and is declining substitution. Inventory Assets Strengths: consistent with therapy up to this point, working Needs: safety plan, ongoing med management Suicide Risk Level Suicide Risk Level: High (q15 min suicide checks) (s/p ingestion, more ambivalent than actively SI at this time) Risk Factors Assessment : Yes Do You Have Access To A Gun?: Yes (landlord/housemate has firearm) Health Problems: Yes Mental Health Diagnoses: Yes Substance Use Disorders: No Previous Attempt: Yes Previous Psychiatric Hospitalization: Yes Protective Factors Assessment Employed: Yes Interval History Identifying Information MAYA MEYERS, prefers non-binary Yola is a 26-year-old genetic F who currently lives in [place], has a history of mutiple hospitalizations/suicide attempts, and was admitted on 10/22/21 22:21 on a 201 voluntary commitment on transfer from the medical floor s/p ASA ingestion with porfirio. Chief Complaint "yeah, I'm just bleh" Review of Systems Sleep Information Total Hours of Sleep: 6.5 Sleep Comments: pt given trazodone per rn. pt on q-15 minute checks Meal Information Percent Meal Consumed - Breakfast: 20 Percent Meal Consumed - Lunch: 50 Percent Meal Consumed - Dinner: 25 Subjective Subjective Patient was seen & assessed and interval progress reviewed with treatment team. Patient was acutely more suicidal last pm vs gamey with staff as discussed that could self-harm with katiana from tea bags. Was initially resistant to take juice for a KOLTON 69. Today is focussed on feelings re: transition in therapists and plans to have CM present for first few sessions. Physical Exam Psychiatric Orientation: alert and oriented x 3 Apperance: appropriately dressed and appropriately groomed Eye Contact: good eye contact Motor Behavior: no abnormal motor movements Speech: normal rate/rhythm/volume of speech Affect: + depressed affect Mood: + depressed mood Thought Process: goal directed thought process Thought Content: reality based without delusions Suicidal Thoughts: denies suicidal thoughts (per see but ambivalent about being alive) and denies suicidal intent (no intent on unit though splits); + reports suicidal plan (long standing multistep plan re; her meds and pump) Homicidal Thoughts: denies homicidal thoughts Hallucinations: no auditory hallucinations and no visual hallucinations Cognition: attention grossly intact and language grossly intact Estimated Intelligence: consistent with education level Insight: + limited insight Judgement: + limited judgement Vital Signs (Past 24 Hours) Last Vital Signs Temp 37 C 10/25/21 06:47 Pulse 102 H 10/25/21 06:47 Resp 16 10/25/21 06:47 BP 77/46 L 10/25/21 06:47 Pulse Ox 95 10/22/21 22:39 Results & Data ([facility]) Laboratory Results Laboratory Results - last 24 hr 10/24/21 10/24/21 10/24/21 17:17 21:32 21:35 POC Glucose 121 H 69 L* 71 10/25/21 10/25/21 10/25/21 03:08 08:58 12:52 POC Glucose 178 H 174 H 124 H Current Inpatient Medications Current Inpatient Medications: Current Inpatient Medications Al Hydrox/Mg Hydrox/Simethicone (Aluminum/Magnesium Susp 30 Ml Udc) 30 ml PO Q4H PRN PRN Reason: GI Upset Stop: 11/21/21 21:38 Bismuth Subsalicylate (Bismuth Subsalicylate Liqd 236 Ml) 15 ml PO PRN PRN PRN Reason: Loose Stool Stop: 11/21/21 21:38 Bupropion HCl (Bupropion Xl 300 Mg Tabcr) 300 mg PO QAM [facility] Stop: 11/22/21 10:29 Last Admin: 10/25/21 09:26 Dose: 300 mg Documented by: Dextrose (Dextrose 50% 50 Ml Syringe) 25 - 50 ml IV UD PRN; Protocol PRN Reason: Hypoglycemia Protocol Stop: 11/22/21 01:14 Fish Oil ([place]-3 (Purified Fish Oil) 1 Gm Cap) [facility] Stop: 11/22/21 10:29 Last Admin: 10/25/21 09:27 Dose: 1 gm Documented by: Fluticasone Furoate (Fluticasone Furoate 100mcg 14 Puffs/Inhaler) 1 puffs INH [facility] Stop: 11/22/21 10:29 Last Admin: 10/25/21 09:31 Dose: 1 puffs Documented by: Glucagon (Glucagon For Inj 1 Mg Vial) 1 mg IM UD PRN; Protocol PRN Reason: Hypoglycemia Protocol Stop: 11/22/21 01:14 Glucose (Glucose 40% Gel 15 Gm Tube) 15 - 30 gm PO UD PRN; Protocol PRN Reason: Hypoglycemia Protocol Stop: 11/22/21 01:14 Glucose (Glucose 10 Tabs/Tube) 4 - 8 tabs PO UD PRN; Protocol PRN Reason: Hypoglycemia Protocol Stop: 11/22/21 01:14 Hydroxyzine HCl (Hydroxyzine Hcl 25 Mg Tab) 50 mg PO HSZ PRN PRN Reason: Insomnia Stop: 11/21/21 21:38 Hydroxyzine HCl (Hydroxyzine Hcl 25 Mg Tab) 25 mg PO Q4H PRN PRN Reason: Anxiety Stop: 11/21/21 21:38 Insulin Aspart (Insulin Aspart Per Unit) 0 units SC [facility] Stop: 11/22/21 07:59 Last Admin: 10/25/21 13:35 Dose: Not Given Documented by: Insulin Glargine (Insulin Glargine Solostar 100 Units/Ml 3 Ml Pen) 20 units SC DAILY@1700 [facility] Stop: 11/22/21 16:59 Last Admin: 10/24/21 17:45 Dose: 20 units Documented by: Linaclotide (Linaclotide 72 Mcg Capsule) 72 mcg PO DAILY [facility] Stop: 11/22/21 10:29 Last Admin: 10/25/21 09:30 Dose: 72 mcg Documented by: Magnesium Hydroxide (Magnesium Hydroxide Susp 30 Ml Udc) 30 ml PO DAILY PRN PRN Reason: Constipation Stop: 11/21/21 21:38 Miscellaneous (Carbohydrates For Hypoglycemia ) 15 - 30 gm PO UD PRN PRN Reason: Hypoglycemia Treatment Stop: 11/22/21 01:14 Miscellaneous Information (Pharmacy Glycemic Mgmt Consult) 1 ea N/A UD PRN PRN Reason: Consult Stop: 11/21/21 21:47 Pantoprazole Sodium (Pantoprazole 40 Mg Tab) 40 mg PO DAILY [facility] Stop: 11/22/21 10:29 Last Admin: 10/25/21 09:27 Dose: 40 mg Documented by: Polyethylene Glycol (Polyethylene (Miralax) 17 Gm Pack) 17 gm PO DAILY PRN PRN Reason: Constipation Stop: 11/22/21 18:32 Prenat Multivit/[place]/Iron/Folic Ac ( Vitamin 1 Tab) 1 tab PO QAM [facility] Stop: 11/23/21 08:59 Last Admin: 10/25/21 09:27 Dose: 1 tab Documented by: Propranolol HCl (Propranolol Hcl 60 Mg La Cap) 60 mg PO HS [facility] Stop: 11/21/21 21:59 Last Admin: 10/24/21 22:25 Dose: 60 mg Documented by: Sennosides (Senna 8.6 Mg Tab) 8.6 mg PO QAM [facility] Stop: 11/22/21 18:44 Last Admin: 10/25/21 09:26 Dose: 8.6 mg Documented by: Sodium Chloride (Sodium Chloride 0.65% Na Soln 45 Ml ([place])) 1 - 2 sprays NA PRN PRN PRN Reason: Nasal Dryness/Congestion Stop: 11/21/21 21:38 Sodium Chloride (Sodium Chloride 1 Gm Tablet) 1 gm PO BID PRN PRN Reason: orthostatic hypotension Stop: 11/22/21 09:38 Trazodone HCl (Trazodone Hcl 50 Mg Tab) 50 mg PO HS [facility] Stop: 11/21/21 21:59 Last Admin: 10/24/21 22:25 Dose: 50 mg Documented by: Vitamin D (Cholecalciferol 1,000 Units 25 Mcg Tab) 4,000 units PO DAILY [facility] Stop: 11/22/21 10:29 Last Admin: 10/25/21 09:29 Dose: 4,000 units Documented by: Vitamin E (Tocopheryl, Dl-Alpha 100 Units Cap) 400 units PO QAM [facility] Stop: 11/23/21 08:59 Last Admin: 10/25/21 09:28 Dose: 400 units Documented by: Mental Health & Subst Abuse Tx Psychiatrist Name of Psychiatrist: [facility] - Dr. Annette Sahu Date of Appointment with Psychiatrist: 10/31/21 Time of Appointment with Psychiatrist: 11:00 AM Therapist Name of Therapist: [facility] - Nereida Butler Time of Therapist Appointment: Nereida will follow up to schedule. Staff Occupational Therapist Name of Staff Occupational Therapist: ELMIRA Caballero Post Discharge Appointments Primary Care Physician Name Of Family Doctor: TARAH Palomo (1) Type I diabetes mellitus Diabetes mellitus complication status: with other specified complication Qualified Code(s): E10.69 - Type 1 diabetes mellitus with other specified complication
[2021-10-25] MEDS: INSULIN GLARGINE SOLOSTAR 100 UNITS/ML 3 ML PEN SC SCH (17:39)
[2021-10-25] MEDS: SERTRALINE HCL 50 MG TABLET PO SCH (21:20)
[2021-10-25] MEDS: traZODone HCL 50 MG TAB PO SCH (21:21)
[2021-10-25] MEDS: PROPRANOLOL HCL 60 MG LA CAP PO SCH (21:25)
[2021-10-26] MEDS: OMEGA-3 (PURIFIED FISH OIL) 1 GM CAP PO SCH (09:02)
[2021-10-26] MEDS: linaCLOtide 72 MCG CAPSULE PO SCH (09:02)
[2021-10-26] MEDS: TOCOPHERYL, DL-ALPHA 100 UNITS CAP PO SCH (09:02)
[2021-10-26] MEDS: buPROPion XL 300 MG TABCR PO SCH (09:02)
[2021-10-26] MEDS: PRENATAL VITAMIN 1 TAB PO SCH (09:03)
[2021-10-26] MEDS: PANTOprazole 40 MG TAB PO SCH (09:03)
[2021-10-26] MEDS: CHOLECALCIFEROL 1,000 UNITS 25 MCG TAB PO SCH (09:03)
[2021-10-26] MEDS: SENNA 8.6 MG TAB PO SCH (09:03)
[2021-10-26] MEDS: FLUTICASONE FUROATE 100MCG 14 PUFFS/INHALER INH SCH (09:08)
--- NOTE | 2021-10-26 09:11 | Psychiatric Progress Note ---
Date of Service October 26, 2021 Impression / Recommendations Impression 26 yo nonbinary person with recurrent SIB and suicide attempts s/p toxic ASA ingestion necessitating medical admission. Currently reports therapist of 2+ years graduated and this transition has been stressful as has been seeing twice a week plus DBT group. 10/26/21: unchanged, continue MNPR as non-binary. (1) Depression: (2) Borderline personality disorder: (3) Irritable bowel syndrome with constipation: (4) Celiac disease: (5) Type I diabetes mellitus: 10/26/21: propranolol is being held due to hospital parameters. will have session with therapist, unit sw, and community case manager tomorrow. 10/25/21: risks/benefits/alternatives reviewed re: retrial of Zoloft in combination with Wellbutrin as they report positive response for mood/anxiety and benefit from Wellbutrin but in different ways. Would not commit to any changes in Rexulti. Needs support person meeting. 10/24/21: consider Rexulti 2 mg retrial as outpatient, given that actions are driven by BPD and direct response to perceived abandonment by therapist, less likely to rx naltrexone trial. outpatient provider concurs that Wellbutrin helpful. 10/23/21: The patient was admitted to the [facility] ([facility] inpatient mental health unit) on q15 min checks (behavioral with suicide precautions) for safety. The patient will participate in group, recreational, and milieu therapies and will be offered additional individual and family sessions as clinically appropriate. [facility]. insulin pump out for safety on unit with glucose/insulin management by pharmacy. Linzess is non formulary so requesting miralax prn and senna to approximate. Rexulti is also non-formulary and is declining substitution. Inventory Assets Strengths: consistent with therapy up to this point, working Needs: safety plan, ongoing med management Suicide Risk Level Suicide Risk Level: High (q15 min suicide checks) (s/p ingestion, more ambivalent than actively SI at this time) Risk Factors Assessment : Yes Do You Have Access To A Gun?: Yes (landlord/housemate has firearm) Health Problems: Yes Mental Health Diagnoses: Yes Substance Use Disorders: No Previous Attempt: Yes Previous Psychiatric Hospitalization: Yes Protective Factors Assessment Employed: Yes Interval History Identifying Information MAYA MEYERS prefers non-binary Yola is a 26-year-old genetic F who currently lives in [place], has a history of mutiple hospitalizations/suicide attempts, and was admitted on 10/22/21 22:21 on a 201 voluntary commitment on transfer from the medical floor s/p ASA ingestion with cinchonism. Chief Complaint "I wish staff understood DBT more, maybe I just want to stay like this, what's the point?". Review of Systems Sleep Information Total Hours of Sleep: 6.5 Sleep Comments: pt given trazodone per rn. pt on q-15 minute check Meal Information Percent Meal Consumed - Breakfast: 20 Percent Meal Consumed - Lunch: 50 Percent Meal Consumed - Dinner: 100 Subjective Subjective Patient was seen & assessed and interval progress reviewed with nursing and social work. Patient superficially respectful but feels it should be a patient's choice to self-harm on the unit. States if they were home they would have SIB to have the release. States took pills to see how far she would "go", but self- redirected to other topics when didn't get the reaction expecting. Extensive review of therapy history and things they did/didn't appreciate in last therapy relationship. States safety plans are useless on paper but then also wants therapist to look for that promise between sessions. Reviewed blood pressures given dosing of extended release beta peace. Is upset about hospital parameters. Denies orthostasis. Session continued for just over 1 hr and toward the end patient was opening up about relationship with biological mother and disappointment that she never truly apologized for ignoring Yola's diabetic symptoms. Yola received a text several months ago which just reinforced this but doesn't block mother's number. Physical Exam Psychiatric Orientation: alert and oriented x 3 Apperance: appropriately dressed and appropriately groomed Eye Contact: good eye contact Motor Behavior: no abnormal motor movements Speech: normal rate/rhythm/volume of speech Affect: + depressed affect Mood: + depressed mood Thought Process: goal directed thought process Thought Content: reality based without delusions Suicidal Thoughts: denies suicidal thoughts (has urges to SIB but no impulsivity noted.) and denies suicidal intent (no intent on unit though splits); + reports suicidal plan (long standing multistep plan re; her meds and pump) Homicidal Thoughts: denies homicidal thoughts Hallucinations: no auditory hallucinations and no visual hallucinations Cognition: attention grossly intact and language grossly intact Estimated Intelligence: consistent with education level Insight: + limited insight Judgement: + limited judgement Vital Signs (Past 24 Hours) Last Vital Signs Temp 36.9 C 10/26/21 07:02 Pulse 108 H 10/26/21 07:04 Resp 16 10/26/21 07:02 BP 78/49 L 10/26/21 07:04 Pulse Ox 95 10/22/21 22:39 Results & Data ([facility]) Laboratory Results Laboratory Results - last 24 hr 10/25/21 10/25/21 10/25/21 12:52 17:14 20:34 POC Glucose 124 H 269 H 117 H Current Inpatient Medications Current Inpatient Medications: Current Inpatient Medications Al Hydrox/Mg Hydrox/Simethicone (Aluminum/Magnesium Susp 30 Ml Udc) 30 ml PO Q4H PRN PRN Reason: GI Upset Stop: 11/21/21 21:38 Bismuth Subsalicylate (Bismuth Subsalicylate Liqd 236 Ml) 15 ml PO PRN PRN PRN Reason: Loose Stool Stop: 11/21/21 21:38 Bupropion HCl (Bupropion Xl 300 Mg Tabcr) 300 mg PO QAM [facility] Stop: 11/22/21 10:29 Last Admin: 10/26/21 09:02 Dose: 300 mg Documented by: Dextrose (Dextrose 50% 50 Ml Syringe) 25 - 50 ml IV UD PRN; Protocol PRN Reason: Hypoglycemia Protocol Stop: 11/22/21 01:14 Fish Oil ([place]-3 (Purified Fish Oil) 1 Gm Cap) 1 gm PO QAM [facility] Stop: 11/22/21 10:29 Last Admin: 10/26/21 09:02 Dose: 1 gm Documented by: Fluticasone Furoate (Fluticasone Furoate 100mcg 14 Puffs/Inhaler) 1 puffs INH QAM [facility] Stop: 11/22/21 10:29 Last Admin: 10/26/21 09:08 Dose: 1 puffs Documented by: Glucagon (Glucagon For Inj 1 Mg Vial) 1 mg IM UD PRN; Protocol PRN Reason: Hypoglycemia Protocol Stop: 11/22/21 01:14 Glucose (Glucose 40% Gel 15 Gm Tube) 15 - 30 gm PO UD PRN; Protocol PRN Reason: Hypoglycemia Protocol Stop: 11/22/21 01:14 Glucose (Glucose 10 Tabs/Tube) 4 - 8 tabs PO UD PRN; Protocol PRN Reason: Hypoglycemia Protocol Stop: 11/22/21 01:14 Hydroxyzine HCl (Hydroxyzine Hcl 25 Mg Tab) 50 mg PO HSZ PRN PRN Reason: Insomnia Stop: 11/21/21 21:38 Hydroxyzine HCl (Hydroxyzine Hcl 25 Mg Tab) 25 mg PO Q4H PRN PRN Reason: Anxiety Stop: 11/21/21 21:38 Insulin Aspart (Insulin Aspart Per Unit) 0 units SC ACHS [facility] Stop: 11/22/21 07:59 Last Admin: 10/25/21 21:18 Dose: 3 units Documented by: Insulin Glargine (Insulin Glargine Solostar 100 Units/Ml 3 Ml Pen) 20 units SC DAILY@1700 [facility] Stop: 11/22/21 16:59 Last Admin: 10/25/21 17:39 Dose: 20 units Documented by: Linaclotide (Linaclotide 72 Mcg Capsule) 72 mcg PO DAILY [facility] Stop: 11/22/21 10:29 Last Admin: 10/26/21 09:02 Dose: 72 mcg Documented by: Magnesium Hydroxide (Magnesium Hydroxide Susp 30 Ml Udc) 30 ml PO DAILY PRN PRN Reason: Constipation Stop: 11/21/21 21:38 Miscellaneous (Carbohydrates For Hypoglycemia ) 15 - 30 gm PO UD PRN PRN Reason: Hypoglycemia Treatment Stop: 11/22/21 01:14 Miscellaneous Information (Pharmacy Glycemic Mgmt Consult) 1 ea N/A UD PRN PRN Reason: Consult Stop: 11/21/21 21:47 Pantoprazole Sodium (Pantoprazole 40 Mg Tab) 40 mg PO DAILY [facility] Stop: 11/22/21 10:29 Last Admin: 10/26/21 09:03 Dose: 40 mg Documented by: Polyethylene Glycol (Polyethylene (Miralax) 17 Gm Pack) 17 gm PO DAILY PRN PRN Reason: Constipation Stop: 11/22/21 18:32 Prenat Multivit/[place]/Iron/Folic Ac ( Vitamin 1 Tab) 1 tab PO QAM [facility] Stop: 11/23/21 08:59 Last Admin: 10/26/21 09:03 Dose: 1 tab Documented by: Propranolol HCl (Propranolol Hcl 60 Mg [place]) 60 mg PO HS [facility] Stop: 11/21/21 21:59 Last Admin: 10/25/21 21:25 Dose: Not Given Documented by: Sennosides (Senna 8.6 Mg Tab) 8.6 mg PO QAM [facility] Stop: 11/22/21 18:44 Last Admin: 10/26/21 09:03 Dose: 8.6 mg Documented by: Sertraline HCl (Sertraline Hcl 50 Mg Tablet) 25 mg PO HS [facility] Stop: 11/24/21 21:59 Last Admin: 10/25/21 21:20 Dose: 25 mg Documented by: Sodium Chloride (Sodium Chloride 0.65% Na Soln 45 Ml ([place])) 1 - 2 sprays NA PRN PRN PRN Reason: Nasal Dryness/Congestion Stop: 11/21/21 21:38 Sodium Chloride (Sodium Chloride 1 Gm Tablet) 1 gm PO BID PRN PRN Reason: orthostatic hypotension Stop: 11/22/21 09:38 Trazodone HCl (Trazodone Hcl 50 Mg Tab) 50 mg PO HS [facility] Stop: 11/21/21 21:59 Last Admin: 10/25/21 21:21 Dose: 50 mg Documented by: Vitamin D (Cholecalciferol 1,000 Units 25 Mcg Tab) 4,000 units PO DAILY [facility] Stop: 11/22/21 10:29 Last Admin: 10/26/21 09:03 Dose: 4,000 units Documented by: Vitamin E (Tocopheryl, Dl-Alpha 100 Units Cap) 400 units PO QAM [facility] Stop: 11/23/21 08:59 Last Admin: 10/26/21 09:02 Dose: 400 units Documented by: Mental Health & Subst Abuse Tx Psychiatrist Name of Psychiatrist: [facility] - Dr. Annette Sahu Date of Appointment with Psychiatrist: 10/31/21 Time of Appointment with Psychiatrist: 11:00 AM Therapist Name of Therapist: [facility] - Nereida Butler Time of Therapist Appointment: Nereida will follow up to schedule. Tension Worker Name of Tension Worker: ELMIRA Caballero Post Discharge Appointments Primary Care Physician Name Of Family Doctor: TARAH Palomo (1) Type I diabetes mellitus Diabetes mellitus complication status: with other specified complication Qualified Code(s): E10.69 - Type 1 diabetes mellitus with other specified complication
[2021-10-26] MEDS: INSULIN ASPART PER UNIT SC SCH ×4 (09:37→21:53)
[2021-10-26] MEDS: INSULIN GLARGINE SOLOSTAR 100 UNITS/ML 3 ML PEN SC SCH (17:57)
[2021-10-26] MEDS: traZODone HCL 50 MG TAB PO SCH (21:51)
[2021-10-26] MEDS: SERTRALINE HCL 50 MG TABLET PO SCH (21:51)
[2021-10-26] MEDS: PROPRANOLOL HCL 60 MG LA CAP PO SCH (22:02)
[2021-10-27] MEDS: FLUTICASONE FUROATE 100MCG 14 PUFFS/INHALER INH SCH (08:56)
[2021-10-27] MEDS: CHOLECALCIFEROL 1,000 UNITS 25 MCG TAB PO SCH (08:57)
[2021-10-27] MEDS: buPROPion XL 300 MG TABCR PO SCH (08:57)
[2021-10-27] MEDS: OMEGA-3 (PURIFIED FISH OIL) 1 GM CAP PO SCH (08:57)
[2021-10-27] MEDS: linaCLOtide 72 MCG CAPSULE PO SCH (08:57)
[2021-10-27] MEDS: SENNA 8.6 MG TAB PO SCH (08:57)
[2021-10-27] MEDS: PANTOprazole 40 MG TAB PO SCH ×2 (08:57→21:33)
[2021-10-27] MEDS: PRENATAL VITAMIN 1 TAB PO SCH (08:57)
[2021-10-27] MEDS: TOCOPHERYL, DL-ALPHA 100 UNITS CAP PO SCH (08:58)
[2021-10-27] MEDS: INSULIN ASPART PER UNIT SC SCH ×4 (09:49→21:44)
--- NOTE | 2021-10-27 13:46 | Pharmacy Report ---
Pharmacy Glycemic Short Note 2 - Date of Service October 27, 2021 - Glycemic Short BSG Results (Last 24 hours): 10/26/21 10/26/21 10/27/21 17:14 20:19 08:50 POC Glucose 201 H 113 H 171 H 10/27/21 12:25 POC Glucose 270 H OUTPATIENT ANTIDIABETIC REGIMEN: * Novolog pump * HbA1C = 10.5% (08/04/21) ASSESSMENT: 10/27 * Patient received total of 40 units of insulin yesterday, of which 20 units were basal * Fasting BSG 171 mg/dL - reasonable to continue same basal as previous fasting BSGs okay * Continue same CF/CR for now 10/23 * Patient is a 26 y/o T1DM who presents to [facility]. Insulin pump removed yesterday evening and lantus 20 units given at 1700. * BSGs yesterday were 180-176-127 (when pump removed)-238 and today are 168-94 mg/dL. * Patient previously known to glycemic service so will continue previous regimen of Lantus 20 units daily @ 1700, Novolog CF 50 CR 8. * Prior to change to glycemic regimen will reach out to patient. PLAN FOR INPATIENT GLYCEMIC CONTROL: * Basal insulin * Lantus 20 units SQ Daily@1700 * Bolus insulin * NovoLog per scale ACHS or Q6hrs while NPO * Goal Range: Low 110 mg/dL - High 140 mg/dL * Correction Factor: 50 mg/dL/unit * Nutritional / Prandial insulin per carb ratio of 1 unit per 8 grams CHO consumed
--- NOTE | 2021-10-27 14:56 | Psychiatric Progress Note ---
Date of Service October 27, 2021 Impression / Recommendations Impression 26 yo nonbinary person with recurrent SIB and suicide attempts s/p toxic ASA ingestion necessitating medical admission. Currently reports therapist of 2+ years graduated and this transition has been stressful as has been seeing twice a week plus DBT group. 10/27/21: minimal change, continue MNPR as non-binary. (1) Depression: (2) Borderline personality disorder: (3) Irritable bowel syndrome with constipation: (4) Celiac disease: (5) Type I diabetes mellitus: 10/27/21: d/c extended release propranolol as 60 mg is lowest dose. trial of propranolol 20 mg BID with meals while hospitalized with parameters and monitor. 10/26/21: propranolol is being held due to hospital parameters. will have session with therapist, unit sw, and outpatient case manager tomorrow. 10/25/21: risks/benefits/alternatives reviewed re: retrial of Zoloft in combination with Wellbutrin as they report positive response for mood/anxiety and benefit from Wellbutrin but in different ways. Would not commit to any changes in Rexulti. Needs support person meeting. 10/24/21: consider Rexulti 2 mg retrial as outpatient, given that actions are driven by BPD and direct response to perceived abandonment by therapist, less likely to rx naltrexone trial. outpatient provider concurs that Wellbutrin helpful. 10/23/21: The patient [facility] on q15 min checks (behavioral with suicide precautions) for safety. The patient will participate in group, recreational, and milieu therapies and will be offered additional individual and family sessions as clinically appropriate. coordinate care with [facility] psych clinic. insulin pump out for safety on unit with glucose/insulin management by pharmacy. Linzess is non formulary so requesting miralax prn and senna to approximate. Rexulti is also non-formulary and is declining substitution. Inventory Assets Strengths: consistent with therapy up to this point, working Needs: safety plan, ongoing med management Suicide Risk Level Suicide Risk Level: High (q15 min suicide checks) (s/p ingestion, more ambivalent than actively SI at this time) Risk Factors Assessment : Yes Do You Have Access To A Gun?: Yes (landlord/housemate has firearm) Health Problems: Yes Mental Health Diagnoses: Yes Substance Use Disorders: No Previous Attempt: Yes Previous Psychiatric Hospitalization: Yes Protective Factors Assessment Employed: Yes Interval History Identifying Information eliud BRODYs non-binary Yola is a 26-year-old genetic F who currently lives in [place], has a history of mutiple hospitalizations/suicide attempts, and was admitted on 10/22/21 22:21 on a 201 voluntary commitment on transfer from the medical floor s/p ASA ingestion with cinchonism. Chief Complaint "i don't understand why I can't have medication that helps my tachycardia, it makes me tired." Review of Systems Sleep Information Total Hours of Sleep: 7 Sleep Comments: pt given trazodone per rn. pt on q-15 minute check Meal Information Percent Meal Consumed - Breakfast: 25 Percent Meal Consumed - Lunch: 75 Percent Meal Consumed - Dinner: 75 Subjective Subjective Patient was seen & assessed and interval progress reviewed with treatment team. Had 1st meeting with new therapist from psych clinic. Seemed less irritable today. Is starting to plan for next week/return to work. Tolerating meds. Physical Exam Psychiatric Orientation: alert and oriented x 3 Apperance: appropriately dressed and appropriately groomed Eye Contact: good eye contact Motor Behavior: no abnormal motor movements Speech: normal rate/rhythm/volume of speech Affect: + depressed affect Mood: + depressed mood Thought Process: goal directed thought process Thought Content: reality based without delusions Suicidal Thoughts: denies suicidal thoughts (has urges to SIB but no impulsivity noted.) and denies suicidal intent (no intent on unit though splits); + reports suicidal plan (long standing multistep plan re; her meds and pump) Homicidal Thoughts: denies homicidal thoughts Hallucinations: no auditory hallucinations and no visual hallucinations Cognition: attention grossly intact and language grossly intact Estimated Intelligence: consistent with education level Insight: + limited insight Judgement: + limited judgement Vital Signs (Past 24 Hours) Last Vital Signs Temp 36.9 C 10/27/21 06:00 Pulse 90 10/27/21 06:00 Resp 18 10/27/21 06:00 BP 97/67 L 10/27/21 06:00 Pulse Ox 95 10/22/21 22:39 Results & Data ([facility]) Laboratory Results Laboratory Results - last 24 hr 10/26/21 10/26/21 10/27/21 17:14 20:19 08:50 POC Glucose 201 H 113 H 171 H 10/27/21 12:25 POC Glucose 270 H Current Inpatient Medications Current Inpatient Medications: Current Inpatient Medications Al Hydrox/Mg Hydrox/Simethicone (Aluminum/Magnesium Susp 30 Ml Udc) 30 ml PO Q4H PRN PRN Reason: GI Upset Stop: 11/21/21 21:38 Bismuth Subsalicylate (Bismuth Subsalicylate Liqd 236 Ml) 15 ml PO PRN PRN PRN Reason: Loose Stool Stop: 11/21/21 21:38 Bupropion HCl (Bupropion Xl 300 Mg Tabcr) 300 mg PO QAM [facility] Stop: 11/22/21 10:29 Last Admin: 10/27/21 08:57 Dose: 300 mg Documented by: Dextrose (Dextrose 50% 50 Ml Syringe) 25 - 50 ml IV UD PRN; Protocol PRN Reason: Hypoglycemia Protocol Stop: 11/22/21 01:14 Fish Oil ([place]-3 (Purified Fish Oil) 1 Gm Cap) 1 gm PO QAM [facility] Stop: 11/22/21 10:29 Last Admin: 10/27/21 08:57 Dose: 1 gm Documented by: Fluticasone Furoate (Fluticasone Furoate 100mcg 14 Puffs/Inhaler) 1 puffs INH QAM [facility] Stop: 11/22/21 10:29 Last Admin: 10/27/21 08:56 Dose: 1 puffs Documented by: Glucagon (Glucagon For Inj 1 Mg Vial) 1 mg IM UD PRN; Protocol PRN Reason: Hypoglycemia Protocol Stop: 11/22/21 01:14 Glucose (Glucose 40% Gel 15 Gm Tube) 15 - 30 gm PO UD PRN; Protocol PRN Reason: Hypoglycemia Protocol Stop: 11/22/21 01:14 Glucose (Glucose 10 Tabs/Tube) 4 - 8 tabs PO UD PRN; Protocol PRN Reason: Hypoglycemia Protocol Stop: 11/22/21 01:14 Hydroxyzine HCl (Hydroxyzine Hcl 25 Mg Tab) 50 mg PO HSZ PRN PRN Reason: Insomnia Stop: 11/21/21 21:38 Hydroxyzine HCl (Hydroxyzine Hcl 25 Mg Tab) 25 mg PO Q4H PRN PRN Reason: Anxiety Stop: 11/21/21 21:38 Insulin Aspart (Insulin Aspart Per Unit) 0 units SC ACHS [facility] Stop: 11/22/21 07:59 Last Admin: 10/27/21 13:45 Dose: 6 units Documented by: Insulin Glargine (Insulin Glargine Solostar 100 Units/Ml 3 Ml Pen) 20 units SC DAILY@1700 [facility] Stop: 11/22/21 16:59 Last Admin: 10/26/21 17:57 Dose: 20 units Documented by: Linaclotide (Linaclotide 72 Mcg Capsule) 72 mcg PO DAILY [facility] Stop: 11/22/21 10:29 Last Admin: 10/27/21 08:57 Dose: 72 mcg Documented by: Magnesium Hydroxide (Magnesium Hydroxide Susp 30 Ml Udc) 30 ml PO DAILY PRN PRN Reason: Constipation Stop: 11/21/21 21:38 Miscellaneous (Carbohydrates For Hypoglycemia ) 15 - 30 gm PO UD PRN PRN Reason: Hypoglycemia Treatment Stop: 11/22/21 01:14 Miscellaneous Information (Pharmacy Glycemic Mgmt Consult) 1 ea N/A UD PRN PRN Reason: Consult Stop: 11/21/21 21:47 Pantoprazole Sodium (Pantoprazole 40 Mg Tab) 40 mg PO BID [facility] Stop: 11/26/21 20:59 Polyethylene Glycol (Polyethylene (Miralax) 17 Gm Pack) 17 gm PO DAILY PRN PRN Reason: Constipation Stop: 11/22/21 18:32 Prenat Multivit/[place]/Iron/Folic Ac ( Vitamin 1 Tab) 1 tab PO QAM [facility] Stop: 11/23/21 08:59 Last Admin: 10/27/21 08:57 Dose: 1 tab Documented by: Propranolol HCl (Propranolol Hcl 20 Mg Tab) 20 mg PO BIDM [facility] Stop: 11/26/21 17:44 Sennosides (Senna 8.6 Mg Tab) 8.6 mg PO QAM [facility] Stop: 11/22/21 18:44 Last Admin: 10/27/21 08:57 Dose: 8.6 mg Documented by: Sertraline HCl (Sertraline Hcl 50 Mg Tablet) 25 mg PO HS [facility] Stop: 11/24/21 21:59 Last Admin: 10/26/21 21:51 Dose: 25 mg Documented by: Sodium Chloride (Sodium Chloride 0.65% Na Soln 45 Ml ([place])) 1 - 2 sprays NA PRN PRN PRN Reason: Nasal Dryness/Congestion Stop: 11/21/21 21:38 Sodium Chloride (Sodium Chloride 1 Gm Tablet) 1 gm PO BID PRN PRN Reason: orthostatic hypotension Stop: 11/22/21 09:38 Trazodone HCl (Trazodone Hcl 50 Mg Tab) 50 mg PO HS [facility] Stop: 11/21/21 21:59 Last Admin: 10/26/21 21:51 Dose: 50 mg Documented by: Vitamin D (Cholecalciferol 1,000 Units 25 Mcg Tab) 4,000 units PO DAILY [facility] Stop: 11/22/21 10:29 Last Admin: 10/27/21 08:57 Dose: 4,000 units Documented by: Vitamin E (Tocopheryl, Dl-Alpha 100 Units Cap) 400 units PO QAM [facility] Stop: 11/23/21 08:59 Last Admin: 10/27/21 08:58 Dose: 400 units Documented by: Mental Health & Subst Abuse Tx Psychiatrist Name of Psychiatrist: [facility] - Dr. Annette Sahu Date of Appointment with Psychiatrist: 10/31/21 Time of Appointment with Psychiatrist: 11:00 AM Therapist Name of Therapist: [facility] - Nereida Butler Time of Therapist Appointment: Nereida will follow up to schedule. Car Servicer Name of Car Servicer: ELMIRA Caballero Post Discharge Appointments Primary Care Physician Name Of Family Doctor: TARAH Palomo (1) Type I diabetes mellitus Diabetes mellitus complication status: with other specified complication Qualified Code(s): E10.69 - Type 1 diabetes mellitus with other specified complication
[2021-10-27] MEDS: PROPRANOLOL HCL 20 MG TAB PO SCH (17:09)
[2021-10-27] MEDS: INSULIN GLARGINE SOLOSTAR 100 UNITS/ML 3 ML PEN SC SCH (18:19)
[2021-10-27] MEDS: SERTRALINE HCL 50 MG TABLET PO SCH (21:33)
[2021-10-27] MEDS: traZODone HCL 50 MG TAB PO SCH (21:36)
[2021-10-28] MEDS ORDERED: INSULIN ASPART PER UNIT SC SCH (08:00)
[2021-10-28] MEDS: INSULIN ASPART PER UNIT SC SCH ×5 (09:22→21:45)
[2021-10-28] MEDS: FLUTICASONE FUROATE 100MCG 14 PUFFS/INHALER INH SCH (09:26)
[2021-10-28] MEDS: buPROPion XL 300 MG TABCR PO SCH (09:28)
[2021-10-28] MEDS: CHOLECALCIFEROL 1,000 UNITS 25 MCG TAB PO SCH (09:28)
[2021-10-28] MEDS: OMEGA-3 (PURIFIED FISH OIL) 1 GM CAP PO SCH (09:29)
[2021-10-28] MEDS: linaCLOtide 72 MCG CAPSULE PO SCH (09:29)
[2021-10-28] MEDS: TOCOPHERYL, DL-ALPHA 100 UNITS CAP PO SCH (09:29)
[2021-10-28] MEDS: SENNA 8.6 MG TAB PO SCH (09:30)
[2021-10-28] MEDS: PANTOprazole 40 MG TAB PO SCH ×2 (09:31→21:49)
[2021-10-28] MEDS: PRENATAL VITAMIN 1 TAB PO SCH (09:31)
[2021-10-28] MEDS: PROPRANOLOL HCL 20 MG TAB PO SCH ×2 (11:17→18:03)
--- NOTE | 2021-10-28 16:52 | Psychiatric Progress Note ---
Date of Service October 28, 2021 Impression / Recommendations Impression 26 yo nonbinary person with recurrent SIB and suicide attempts s/p toxic ASA ingestion necessitating medical admission. Currently reports therapist of 2+ years graduated and this transition has been stressful as has been seeing twice a week plus DBT group as well as stress from new job. Diagnostically consistent with BPD and depression with marked increased risk of self-harm in context of outpatient provider transition and new job. The patient is deemed unstable and requires psychiatric hospitalization for diagnostic clarification, safety and stabilization, medication management and development of further coping skills. MNPR as identifies as non-binary 10/28/21: ongoing intrusive urges for self-harm but able to maintain safety on unit using distraction strategies and additional staff support felt to be unnecessary at this time as she is able to utilize coping strategies, motivated to use them and 1-on-1 would lead to further decompensation (1) Depression: (2) Borderline personality disorder: (3) Irritable bowel syndrome with constipation: (4) Celiac disease: (5) Type I diabetes mellitus: 10/28/21: switch sertraline to midday dosing as some activation at [facility]. Continuing to practice coping skills to manage self-harm urges and anger at transition of outpatient providers. 10/27/21: continue current medications and tx plan. 10/26/21: propranolol is being held due to hospital parameters. will have session with therapist, unit sw, and employment case manager tomorrow. 10/25/21: risks/benefits/alternatives reviewed re: retrial of Zoloft in combination with Wellbutrin as they report positive response for mood/anxiety and benefit from Wellbutrin but in different ways. Would not commit to any changes in Rexulti. Needs support person meeting. 10/24/21: consider Rexulti 2 mg retrial as outpatient, given that actions are driven by BPD and direct response to perceived abandonment by therapist, less likely to rx naltrexone trial. outpatient provider concurs that Wellbutrin helpful. 10/23/21: The patient was admitted to the [facility] ([facility] inpatient mental health unit) on q15 min checks (behavioral with suicide precautions) for safety. The patient will participate in group, recreational, and milieu therapies and will be offered additional individual and family sessions as clinically appropriate. coordinate care with [facility]. insulin pump out for safety on unit with glucose/insulin management by pharmacy. Elizabeth is non formulary so requesting miralax prn and senna to approximate. Dave is also non-formulary and is declining substitution. Inventory Assets Strengths: consistent with therapy up to this point, working Needs: safety plan, ongoing med management Suicide Risk Level Suicide Risk Level: High (q15 min suicide checks) (s/p ingestion, more ambivalent than active SI at this time and feels safe on the unit and agrees to go to staff if she feels unsafe, has intrusive self-harm thoughts but managing well with no impulsivity ) Risk Factors Assessment : Yes Do You Have Access To A Gun?: Yes (landlord/housemate has firearm) Health Problems: Yes Mental Health Diagnoses: Yes Substance Use Disorders: No Previous Attempt: Yes Previous Psychiatric Hospitalization: Yes Protective Factors Assessment Employed: Yes Interval History Identifying Information MAYA MEYERS, prefers non-binary Yola is a 26-year-old genetic F who currently lives in [place], has a history of mutiple hospitalizations/suicide attempts, and was admitted on 10/22/21 22:21 on a 201 voluntary commitment on transfer from the medical floor s/p ASA ingestion with porfirio. Chief Complaint "I'm still at a point where I don't want to safety plan and I feel angry and resentful and that's when I'm at higher risk for self-harm and attempting". Review of Systems Sleep Information Total Hours of Sleep: 6.5 Sleep Comments: pt given trazodone per rn. pt on q-15 minute check Meal Information Percent Meal Consumed - Breakfast: 10 Percent Meal Consumed - Lunch: 25 Percent Meal Consumed - Dinner: 50 Nutrition Comment: poor appetite; ate some banana and coffee Subjective Subjective Patient was seen & assessed and interval progress reviewed with treatment team nursing and social work. Continues to have intrusive thoughts regarding urges for self-harm due to anger about their long-time outpatient therapist transitioning. Discussed at length their concerns about this but also willingness to see benefits of working with new therapist who will focus more on anxiety and exposure which they feel will be helpful as this contributes to stress around transitions and with new job. Continues to have intermittent urges for self-harm and SI. States doesn't want to self-harm but also gets overwhelmed by thoughts and sometimes considers acting on thoughts but has been using distraction and reviewed other strategies they can try. They feels sertraline is helping her mood and motivation but may be activating at night, agrees to switch to midday dosing starting tomorrow. Physical Exam Psychiatric Orientation: alert and oriented x 3 Apperance: appropriately dressed and appropriately groomed Eye Contact: good eye contact Motor Behavior: no abnormal motor movements Speech: normal rate/rhythm/volume of speech Affect: + depressed affect Mood: + depressed mood Thought Process: goal directed thought process Thought Content: reality based without delusions Suicidal Thoughts: denies suicidal thoughts (has urges to SIB but no impulsivity noted.) and denies suicidal intent (no intent on unit though splits); + reports suicidal plan (long standing multistep plan re; her meds and pump) Homicidal Thoughts: denies homicidal thoughts Hallucinations: no auditory hallucinations and no visual hallucinations Cognition: attention grossly intact and language grossly intact Estimated Intelligence: consistent with education level Insight: + fair insight Judgement: + limited judgement Vital Signs (Past 24 Hours) Last Vital Signs Temp 36.9 C 10/28/21 06:00 Pulse 90 10/28/21 11:15 Resp 18 10/28/21 06:00 BP 108/75 10/28/21 11:15 Pulse Ox 95 10/22/21 22:39 Results & Data ([facility]) Laboratory Results Laboratory Results - last 24 hr 10/27/21 10/27/21 10/27/21 17:15 21:17 21:18 POC Glucose 172 H 64 L* 65 L* 10/27/21 10/28/21 10/28/21 21:40 08:47 12:45 POC Glucose 84 153 H 200 H Current Inpatient Medications Current Inpatient Medications: Current Inpatient Medications Al Hydrox/Mg Hydrox/Simethicone (Aluminum/Magnesium Susp 30 Ml Udc) 30 ml PO Q4H PRN PRN Reason: GI Upset Stop: 11/21/21 21:38 Bismuth Subsalicylate (Bismuth Subsalicylate Liqd 236 Ml) 15 ml PO PRN PRN PRN Reason: Loose Stool Stop: 11/21/21 21:38 Bupropion HCl (Bupropion Xl 300 Mg Tabcr) 300 mg PO QAM RANDOLPH Stop: 11/22/21 10:29 Last Admin: 10/28/21 09:28 Dose: 300 mg Documented by: Dextrose (Dextrose 50% 50 Ml Syringe) 25 - 50 ml IV UD PRN; Protocol PRN Reason: Hypoglycemia Protocol Stop: 11/22/21 01:14 Fish Oil ([place]-3 (Purified Fish Oil) 1 Gm Cap) 1 gm PO QAM RANDOLPH Stop: 11/22/21 10:29 Last Admin: 10/28/21 09:29 Dose: 1 gm Documented by: Fluticasone Furoate (Fluticasone Furoate 100mcg 14 Puffs/Inhaler) 1 puffs INH QAM RANDLOPH Stop: 11/22/21 10:29 Last Admin: 10/28/21 09:26 Dose: 1 puffs Documented by: Glucagon (Glucagon For Inj 1 Mg Vial) 1 mg IM UD PRN; Protocol PRN Reason: Hypoglycemia Protocol Stop: 11/22/21 01:14 Glucose (Glucose 40% Gel 15 Gm Tube) 15 - 30 gm PO UD PRN; Protocol PRN Reason: Hypoglycemia Protocol Stop: 11/22/21 01:14 Glucose (Glucose 10 Tabs/Tube) 4 - 8 tabs PO UD PRN; Protocol PRN Reason: Hypoglycemia Protocol Stop: 11/22/21 01:14 Hydroxyzine HCl (Hydroxyzine Hcl 25 Mg Tab) 50 mg PO HSZ PRN PRN Reason: Insomnia Stop: 11/21/21 21:38 Hydroxyzine HCl (Hydroxyzine Hcl 25 Mg Tab) 25 mg PO Q4H PRN PRN Reason: Anxiety Stop: 11/21/21 21:38 Insulin Aspart (Insulin Aspart Per Unit) 0 units SC 0800,1200 [facility] Stop: 11/27/21 07:59 Last Admin: 10/28/21 13:38 Dose: 5 units Documented by: Insulin Aspart (Insulin Aspart Per Unit) 0 units SC 1715,2200 [facility] Stop: 11/27/21 17:14 Insulin Glargine (Insulin Glargine Solostar 100 Units/Ml 3 Ml Pen) 20 units SC DAILY@1700 [facility] Stop: 11/22/21 16:59 Last Admin: 10/27/21 18:19 Dose: 20 units Documented by: Linaclotide (Linaclotide 72 Mcg Capsule) 72 mcg PO DAILY [facility] Stop: 11/22/21 10:29 Last Admin: 10/28/21 09:29 Dose: 72 mcg Documented by: Magnesium Hydroxide (Magnesium Hydroxide Susp 30 Ml Udc) 30 ml PO DAILY PRN PRN Reason: Constipation Stop: 11/21/21 21:38 Miscellaneous (Carbohydrates For Hypoglycemia ) 15 - 30 gm PO UD PRN PRN Reason: Hypoglycemia Treatment Stop: 11/22/21 01:14 Last Admin: 10/27/21 21:24 Dose: 15 gm Documented by: Miscellaneous Information (Pharmacy Glycemic Mgmt Consult) 1 ea N/A UD PRN PRN Reason: Consult Stop: 11/21/21 21:47 Pantoprazole Sodium (Pantoprazole 40 Mg Tab) 40 mg PO BID RANDOLPH Stop: 11/26/21 20:59 Last Admin: 10/28/21 09:31 Dose: 40 mg Documented by: Polyethylene Glycol (Polyethylene (Miralax) 17 Gm Pack) 17 gm PO DAILY PRN PRN Reason: Constipation Stop: 11/22/21 18:32 Prenat Multivit/[place]/Iron/Folic Ac ( Vitamin 1 Tab) 1 tab PO QAM [facility] Stop: 11/23/21 08:59 Last Admin: 10/28/21 09:31 Dose: 1 tab Documented by: Propranolol HCl (Propranolol Hcl 20 Mg Tab) 20 mg PO BIDM [facility] Stop: 11/26/21 17:44 Last Admin: 10/28/21 11:17 Dose: 20 mg Documented by: Sennosides (Senna 8.6 Mg Tab) 8.6 mg PO QAM [facility] Stop: 11/22/21 18:44 Last Admin: 10/28/21 09:30 Dose: 8.6 mg Documented by: Sertraline HCl (Sertraline Hcl 50 Mg Tablet) [address] [facility] Stop: 11/26/21 21:59 Last Admin: 10/27/21 21:33 Dose: 50 mg Documented by: Sodium Chloride (Sodium Chloride 0.65% Na Soln 45 Ml ([place])) 1 - 2 sprays NA PRN PRN PRN Reason: Nasal Dryness/Congestion Stop: 11/21/21 21:38 Sodium Chloride (Sodium Chloride 1 Gm Tablet) 1 gm PO BID PRN PRN Reason: orthostatic hypotension Stop: 11/22/21 09:38 Trazodone HCl (Trazodone Hcl 50 Mg Tab) [address] [facility] Stop: 11/21/21 21:59 Last Admin: 10/27/21 21:36 Dose: 50 mg Documented by: Vitamin D (Cholecalciferol 1,000 Units 25 Mcg Tab) 4,000 units PO DAILY RANDOLPH Stop: 11/22/21 10:29 Last Admin: 10/28/21 09:28 Dose: 4,000 units Documented by: Vitamin E (Tocopheryl, Dl-Alpha 100 Units Cap) 400 units PO QAM RANDOLPH Stop: 11/23/21 08:59 Last Admin: 10/28/21 09:29 Dose: 400 units Documented by: Mental Health & Subst Abuse Tx Psychiatrist Name of Psychiatrist: [facility] - Dr. Annette Sahu Psychiatrist's Date of Appointment with Psychiatrist: 10/31/21 Time of Appointment with Psychiatrist: 11:00 AM Psychiatric Appointment Comment: Orlando Manrique [address] [place] [address] Therapist Name of Therapist: [facility] - Nereida Butler Therapist's Date of Therapist Appointment: 10/31/21 Time of Therapist Appointment: 4:00 p.m. Therapy Appointment Comment: Orlando Manrique [address] [place] [address] Tower Equipment Installer Name of Tower Equipment Installer: ELMIRA Caballero Phone Number for Tower Equipment Installer: [phone] Post Discharge Appointments Primary Care Physician Name Of Family Doctor: [facility] Time of Appointment with PCP: Follow up as needed Provider Appointment Comment: [address], [place] Contact Information Discharge Discharge Address: [address] [place] [address] (1) Type I diabetes mellitus Diabetes mellitus complication status: with other specified complication Qualified Code(s): E10.69 - Type 1 diabetes mellitus with other specified complication
[2021-10-28] MEDS: INSULIN GLARGINE SOLOSTAR 100 UNITS/ML 3 ML PEN SC SCH (17:59)
[2021-10-28] MEDS: SERTRALINE HCL 50 MG TABLET PO SCH (21:48)
[2021-10-28] MEDS: traZODone HCL 50 MG TAB PO SCH (21:48)
[2021-10-29] MEDS: buPROPion XL 300 MG TABCR PO SCH (09:00)
[2021-10-29] MEDS: CHOLECALCIFEROL 1,000 UNITS 25 MCG TAB PO SCH (09:00)
[2021-10-29] MEDS: TOCOPHERYL, DL-ALPHA 100 UNITS CAP PO SCH (09:01)
[2021-10-29] MEDS: PANTOprazole 40 MG TAB PO SCH ×2 (09:02→21:15)
[2021-10-29] MEDS: linaCLOtide 72 MCG CAPSULE PO SCH (09:02)
[2021-10-29] MEDS: FLUTICASONE FUROATE 100MCG 14 PUFFS/INHALER INH SCH (09:02)
[2021-10-29] MEDS: OMEGA-3 (PURIFIED FISH OIL) 1 GM CAP PO SCH (09:02)
[2021-10-29] MEDS: SENNA 8.6 MG TAB PO SCH (09:03)
[2021-10-29] MEDS: PRENATAL VITAMIN 1 TAB PO SCH (09:03)
[2021-10-29] MEDS: INSULIN ASPART PER UNIT SC SCH ×4 (09:16→21:13)
--- NOTE | 2021-10-29 09:30 | Psychiatric Progress Note ---
Date of Service October 29, 2021 Impression / Recommendations Impression 26 yo nonbinary person with recurrent SIB and suicide attempts s/p toxic ASA ingestion necessitating medical admission. Currently reports therapist of 2+ years graduated and this transition has been stressful as has been seeing twice a week plus DBT group as well as stress from new job. Diagnostically consistent with BPD and depression with marked increased risk of self-harm in context of outpatient provider transition and new job. The patient is deemed unstable and requires psychiatric hospitalization for diagnostic clarification, safety and stabilization, medication management and development of further coping skills. MNPR as identifies as non-binary 10/29/21: ongoing intrusive urges for self-harm but able to maintain safety on unit using distraction strategies, tolerating medications, remains anxious and depressed and unable to safety contract outside of the hospital (1) Depression: (2) Borderline personality disorder: (3) Irritable bowel syndrome with constipation: (4) Celiac disease: (5) Type I diabetes mellitus: 10/29/21: Working on safety planning and ways to built protective factors and supports. Continue medications and tx plan. 10/28/21: switch sertraline to midday dosing as some activation at [facility]. Continuing to practice coping skills to manage self-harm urges and anger at transition of outpatient providers. 10/27/21: continue current medications and tx plan. 10/26/21: propranolol is being held due to hospital parameters. will have session with therapist, unit sw, and case folder tomorrow. 10/25/21: risks/benefits/alternatives reviewed re: retrial of Zoloft in combination with Wellbutrin as they report positive response for mood/anxiety and benefit from Wellbutrin but in different ways. Would not commit to any changes in Rexulti. Needs support person meeting. 10/24/21: consider Rexulti 2 mg retrial as outpatient, given that actions are driven by BPD and direct response to perceived abandonment by therapist, less likely to rx naltrexone trial. outpatient provider concurs that Wellbutrin helpful. 10/23/21: The patient was admitted to the [facility]) on q15 min checks (behavioral with suicide precautions) for safety. The patient will participate in group, recreational, and milieu therapies and will be offered additional individual and family sessions as clinically appropriate. coordinate care with [facility]. insulin pump out for safety on unit with glucose/insulin management by pharmacy. Linzess is non formulary so requesting miralax prn and senna to approximate. Rexulti is also non-formulary and is declining substitution. Inventory Assets Strengths: consistent with therapy up to this point, working Needs: safety plan, ongoing med management Suicide Risk Level Suicide Risk Level: Moderate (q15 min suicide checks) (s/p ingestion, more ambivalent than active SI at this time and feels safe on the unit and agrees to go to staff if she feels unsafe, has intrusive self-harm thoughts but managing well with no impulsivity ) Risk Factors Assessment : Yes Do You Have Access To A Gun?: Yes (landlord/housemate has firearm) Health Problems: Yes Mental Health Diagnoses: Yes Substance Use Disorders: No Previous Attempt: Yes Previous Psychiatric Hospitalization: Yes Protective Factors Assessment Employed: Yes Interval History Identifying Information MAYA MEYERS, prefers non-binary Yola is a 26-year-old genetic F who currently lives in [place], has a history of mutiple hospitalizations/suicide attempts, and was admitted on 10/22/21 22:21 on a 201 voluntary commitment on transfer from the medical floor s/p ASA ingestion with cinchonism. Chief Complaint "I'm still really angry and not wanting to engage in safety planning". Review of Systems Sleep Information Total Hours of Sleep: 7 Sleep Comments: pt given trazodone per rn. pt on q-15 minute check Meal Information Percent Meal Consumed - Breakfast: 10 Percent Meal Consumed - Lunch: 25 Percent Meal Consumed - Dinner: 25 Nutrition Comment: poor appetite; ate some banana and coffee Subjective Subjective Patient was seen & assessed and interval progress reviewed with treatment team nursing and social work. Had nausea yesterday with decreased po intake but attended groups but otherwise isolative to their room. They have been getting the propranolol. They did not attend community meeting because fell asleep shortly after dinner. They haven't showered since being here. Today they describe motivation to participate in CBT but also anxiety about the exposure activities and discomfort this may cause. Tolerated sertraline at lunch but upset stomach a bit since lunch arrived later and so they took on an empty stomach. Reviewed goals of safety planning given diagnosis of DBT and Yola's chronic SI and urges for self-harm. They agree that safety planning goals are to over time built resiliency by thinking about ways to built non-professional bryant pports and make friends and to ask their mobile psych peer to offer more structure related to anxiety exposure activities as right now it feels too much in Yola's hands and this feels overwhelming. No current SI but intermittent urges for self-harm. Physical Exam Psychiatric Orientation: alert and oriented x 3 Apperance: appropriately dressed and appropriately groomed Eye Contact: good eye contact Motor Behavior: no abnormal motor movements Speech: normal rate/rhythm/volume of speech Affect: + anxious affect Mood: + depressed mood and + anxious mood Thought Process: goal directed thought process Thought Content: reality based without delusions Suicidal Thoughts: denies suicidal thoughts (has urges to SIB but no impulsivity noted.), denies suicidal plan and denies suicidal intent (no intent on unit though splits) Homicidal Thoughts: denies homicidal thoughts Hallucinations: no auditory hallucinations and no visual hallucinations Cognition: attention grossly intact and language grossly intact Estimated Intelligence: consistent with education level Insight: + fair insight Judgement: + limited judgement Vital Signs (Past 24 Hours) Last Vital Signs Temp 37.1 C 10/28/21 20:29 Pulse 88 10/29/21 06:42 Resp 16 10/29/21 06:00 BP 87/55 L 10/29/21 06:42 Pulse Ox 95 10/22/21 22:39 Results & Data (U) Laboratory Results Laboratory Results - last 24 hr 10/28/21 10/28/21 10/28/21 12:45 17:21 21:31 POC Glucose 200 H 105 H 208 H 10/29/21 08:38 POC Glucose 125 H Current Inpatient Medications Current Inpatient Medications: Current Inpatient Medications Al Hydrox/Mg Hydrox/Simethicone (Aluminum/Magnesium Susp 30 Ml Udc) 30 ml PO Q4H PRN PRN Reason: GI Upset Stop: 11/21/21 21:38 Bismuth Subsalicylate (Bismuth Subsalicylate Liqd 236 Ml) 15 ml PO PRN PRN PRN Reason: Loose Stool Stop: 11/21/21 21:38 Bupropion HCl (Bupropion Xl 300 Mg Tabcr) 300 mg PO QAM RANDOLPH Stop: 11/22/21 10:29 Last Admin: 10/29/21 09:00 Dose: 300 mg Documented by: Dextrose (Dextrose 50% 50 Ml Syringe) 25 - 50 ml IV UD PRN; Protocol PRN Reason: Hypoglycemia Protocol Stop: 11/22/21 01:14 Fish Oil ([place]-3 (Purified Fish Oil) 1 Gm Cap) 1 gm PO QAM COUNT INCLUDES THE [facility] Stop: 11/22/21 10:29 Last Admin: 10/29/21 09:02 Dose: 1 gm Documented by: Fluticasone Furoate (Fluticasone Furoate 100mcg 14 Puffs/Inhaler) 1 puffs INH QAM COUNT INCLUDES THE [facility] Stop: 11/22/21 10:29 Last Admin: 10/29/21 09:02 Dose: 1 puffs Documented by: Glucagon (Glucagon For Inj 1 Mg Vial) 1 mg IM UD PRN; Protocol PRN Reason: Hypoglycemia Protocol Stop: 11/22/21 01:14 Glucose (Glucose 40% Gel 15 Gm Tube) 15 - 30 gm PO UD PRN; Protocol PRN Reason: Hypoglycemia Protocol Stop: 11/22/21 01:14 Glucose (Glucose 10 Tabs/Tube) 4 - 8 tabs PO UD PRN; Protocol PRN Reason: Hypoglycemia Protocol Stop: 11/22/21 01:14 Hydroxyzine HCl (Hydroxyzine Hcl 25 Mg Tab) 50 mg PO HSZ PRN PRN Reason: Insomnia Stop: 11/21/21 21:38 Hydroxyzine HCl (Hydroxyzine Hcl 25 Mg Tab) 25 mg PO Q4H PRN PRN Reason: Anxiety Stop: 11/21/21 21:38 Insulin Aspart (Insulin Aspart Per Unit) 0 units SC 0800,1200 COUNT INCLUDES THE [facility] Stop: 11/27/21 07:59 Last Admin: 10/29/21 09:16 Dose: 3 units Documented by: Insulin Aspart (Insulin Aspart Per Unit) 0 units SC 1715,2200 COUNT INCLUDES THE [facility] Stop: 11/27/21 17:14 Last Admin: 10/28/21 21:45 Dose: 3 units Documented by: Insulin Glargine (Insulin Glargine Solostar 100 Units/Ml 3 Ml Pen) 20 units SC DAILY@1700 COUNT INCLUDES THE [facility] Stop: 11/22/21 16:59 Last Admin: 10/28/21 17:59 Dose: 20 units Documented by: Linaclotide (Linaclotide 72 Mcg Capsule) 72 mcg PO DAILY COUNT INCLUDES THE [facility] Stop: 11/22/21 10:29 Last Admin: 10/29/21 09:02 Dose: 72 mcg Documented by: Magnesium Hydroxide (Magnesium Hydroxide Susp 30 Ml Udc) 30 ml PO DAILY PRN PRN Reason: Constipation Stop: 11/21/21 21:38 Miscellaneous (Carbohydrates For Hypoglycemia ) 15 - 30 gm PO UD PRN PRN Reason: Hypoglycemia Treatment Stop: 11/22/21 01:14 Last Admin: 10/27/21 21:24 Dose: 15 gm Documented by: Miscellaneous Information (Pharmacy Glycemic Mgmt Consult) 1 ea N/A UD PRN PRN Reason: Consult Stop: 11/21/21 21:47 Pantoprazole Sodium (Pantoprazole 40 Mg Tab) 40 mg PO BID RANDOLPH Stop: 11/26/21 20:59 Last Admin: 10/29/21 09:02 Dose: 40 mg Documented by: Polyethylene Glycol (Polyethylene (Miralax) 17 Gm Pack) 17 gm PO DAILY PRN PRN Reason: Constipation Stop: 11/22/21 18:32 Prenat Multivit/Bottom Ironer/Iron/Folic Ac ( Vitamin 1 Tab) 1 tab PO QAM COUNT INCLUDES THE [facility] Stop: 11/23/21 08:59 Last Admin: 10/29/21 09:03 Dose: 1 tab Documented by: Propranolol HCl (Propranolol Hcl 20 Mg Tab) 20 mg PO BIDM COUNT INCLUDES THE [facility] Stop: 11/26/21 17:44 Last Admin: 10/28/21 18:03 Dose: 20 mg Documented by: Sennosides (Senna 8.6 Mg Tab) 8.6 mg PO QAM RANDOLPH Stop: 11/22/21 18:44 Last Admin: 10/29/21 09:03 Dose: 8.6 mg Documented by: Sertraline HCl (Sertraline Hcl 50 Mg Tablet) 50 mg PO DAILYBL COUNT INCLUDES THE [facility] Stop: 11/28/21 11:59 Sodium Chloride (Sodium Chloride 0.65% Na Soln 45 Ml ([place])) 1 - 2 sprays NA PRN PRN PRN Reason: Nasal Dryness/Congestion Stop: 11/21/21 21:38 Sodium Chloride (Sodium Chloride 1 Gm Tablet) 1 gm PO BID PRN PRN Reason: orthostatic hypotension Stop: 11/22/21 09:38 Trazodone HCl (Trazodone Hcl 50 Mg Tab) 50 mg PO HS COUNT INCLUDES THE [facility] Stop: 11/21/21 21:59 Last Admin: 06/25/22 21:48 Dose: 50 mg Documented by: Vitamin D (Cholecalciferol 1,000 Units 25 Mcg Tab) 4,000 units PO DAILY RANDOLPH Stop: 11/22/21 10:29 Last Admin: 10/29/21 09:00 Dose: 4,000 units Documented by: Vitamin E (Tocopheryl, Dl-Alpha 100 Units Cap) 400 units PO QAM RANDOLPH Stop: 11/23/21 08:59 Last Admin: 10/29/21 09:01 Dose: 400 units Documented by: Mental Health & Subst Abuse Tx Psychiatrist Name of Psychiatrist: [facility] - Dr. Annette Sahu Psychiatrist's Date of Appointment with Psychiatrist: 10/31/21 Time of Appointment with Psychiatrist: 11:00 AM Psychiatric Appointment Comment: Orlando Manrique [address] [place] [address] Therapist Name of Therapist: [facility] - Nereida Butler Therapist's Date of Therapist Appointment: 10/31/21 Time of Therapist Appointment: 4:00 p.m. Therapy Appointment Comment: Orlando Manrique [address] [place] [address] Square Shear Operator Name of Square Shear Operator: ELMIRA Caballero Phone Number for Square Shear Operator: [phone] Post Discharge Appointments Primary Care Physician Name Of Family Doctor: TARAH [facility] Time of Appointment with PCP: Follow up as needed Provider Appointment Comment: [phone] , [place] Contact Information Discharge Discharge Address: [address] [place] [address] (1) Type I diabetes mellitus Diabetes mellitus complication status: with other specified complication Qualified Code(s): E10.69 - Type 1 diabetes mellitus with other specified complication
[2021-10-29] MEDS: PROPRANOLOL HCL 20 MG TAB PO SCH ×2 (09:58→17:44)
[2021-10-29] MEDS: SERTRALINE HCL 50 MG TABLET PO SCH (12:57)
--- NOTE | 2021-10-29 14:09 | Pharmacy Report ---
Pharmacy Glycemic Short Note 2 - Date of Service October 29, 2021 - Glycemic Short BSG Results (Last 24 hours): 10/28/21 10/28/21 10/29/21 17:21 21:31 08:38 POC Glucose 105 H 208 H 125 H 10/29/21 12:46 POC Glucose 130 H OUTPATIENT ANTIDIABETIC REGIMEN: * Novolog pump * HbA1C = 10.5% (08/04/21) ASSESSMENT: 10/29: * Bon received 33 units of insulin yesterday (20 units Lantus + 13 units Novolog) * Fasting BSG continues to improve - 125 mg/dL today. Continue current Lantus dose. * Lunch BSG is typically the highest of the day, therefore a tighter carb ratio will be used with breakfast and lunch. 10/27 * Patient received total of 40 units of insulin yesterday, of which 20 units were basal * Fasting BSG 171 mg/dL - reasonable to continue same basal as previous fasting BSGs okay * Continue same CF/CR for now 10/23 * Patient is a 26 y/o T1DM who presents to [facility]. Insulin pump removed yesterday evening and lantus 20 units given at 1700. * BSGs yesterday were 180-176-127 (when pump removed)-238 and today are 168-94 mg/dL. * Patient previously known to glycemic service so will continue previous regimen of Lantus 20 units daily @ 1700, Novolog CF 50 CR 8. * Prior to change to glycemic regimen will reach out to patient. PLAN FOR INPATIENT GLYCEMIC CONTROL: * Basal insulin * Lantus 20 units SQ Daily@1700 * Bolus insulin * NovoLog per scale ACHS or Q6hrs while NPO * Goal Range: Low 110 mg/dL - High 140 mg/dL * Correction Factor: 50 mg/dL/unit * Nutritional / Prandial insulin per carb ratio of 1 unit per 6 grams CHO consumed at breakfast & lunch, 1 unit per 9 grams CHO at dinner and HS
[2021-10-29] MEDS: INSULIN GLARGINE SOLOSTAR 100 UNITS/ML 3 ML PEN SC SCH (17:49)
[2021-10-29] MEDS: traZODone HCL 50 MG TAB PO SCH (21:16)
[2021-10-30] MEDS: buPROPion XL 300 MG TABCR PO SCH (08:44)
[2021-10-30] MEDS: PROPRANOLOL HCL 20 MG TAB PO SCH ×2 (08:44→17:19)
[2021-10-30] MEDS: SENNA 8.6 MG TAB PO SCH ×2 (08:45→08:59)
[2021-10-30] MEDS: OMEGA-3 (PURIFIED FISH OIL) 1 GM CAP PO SCH (08:45)
[2021-10-30] MEDS: PANTOprazole 40 MG TAB PO SCH ×2 (08:45→21:42)
[2021-10-30] MEDS: TOCOPHERYL, DL-ALPHA 100 UNITS CAP PO SCH (08:45)
[2021-10-30] MEDS: linaCLOtide 72 MCG CAPSULE PO SCH (08:45)
[2021-10-30] MEDS: PRENATAL VITAMIN 1 TAB PO SCH (08:45)
[2021-10-30] MEDS: CHOLECALCIFEROL 1,000 UNITS 25 MCG TAB PO SCH (08:45)
[2021-10-30] MEDS: FLUTICASONE FUROATE 100MCG 14 PUFFS/INHALER INH SCH (08:46)
--- NOTE | 2021-10-30 09:05 | Psychiatric Progress Note ---
Date of Service October 30, 2021 Impression / Recommendations Impression 26 yo nonbinary person with recurrent SIB and suicide attempts s/p toxic ASA ingestion necessitating medical admission. Currently reports therapist of 2+ years graduated and this transition has been stressful as has been seeing twice a week plus DBT group as well as stress from new job. Diagnostically consistent with BPD and depression with marked increased risk of self-harm in context of outpatient provider transition and new job. The patient is deemed unstable and requires psychiatric hospitalization for diagnostic clarification, safety and stabilization, medication management and development of further coping skills. MNPR as identifies as non-binary 10/30/21: lessening of intrusive self-harm thoughts and increased ability to safety plan and improving mood (1) Depression: (2) Borderline personality disorder: (3) Irritable bowel syndrome with constipation: (4) Celiac disease: (5) Type I diabetes mellitus: 10/30/21: Safety planning discussions. Continue medications and tx plan. 10/29/21: Working on safety planning and ways to built protective factors and supports. Continue medications and tx plan. 10/28/21: switch sertraline to midday dosing as some activation at [facility]. Continuing to practice coping skills to manage self-harm urges and anger at transition of outpatient providers. 10/27/21: continue current medications and tx plan. 10/26/21: propranolol is being held due to hospital parameters. will have session with therapist, unit sw, and caser tomorrow. 10/25/21: risks/benefits/alternatives reviewed re: retrial of Zoloft in com bination with Wellbutrin as they report positive response for mood/anxiety and benefit from Wellbutrin but in different ways. Would not commit to any changes in Rexulti. Needs support person meeting. 10/24/21: consider Rexulti 2 mg retrial as outpatient, given that actions are driven by BPD and direct response to perceived abandonment by therapist, less likely to rx naltrexone trial. outpatient provider concurs that Wellbutrin helpful. 10/23/21: The patient was admitted to the [facility] ([facility] inpatient mental health unit) on q15 min checks (behavioral with suicide precautions) for safety. The patient will participate in group, recreational, and milieu therapies and will be offered additional individual and family sessions as clinically appropriate. coordinate care with [facility]. insulin pump out for safety on unit with glucose/insulin management by pharmacy. Elizabeth is non formulary so requesting miralax prn and senna to approximate. Dave is also non-formulary and is declining substitution. Inventory Assets Strengths: consistent with therapy up to this point, working Needs: safety plan, ongoing med management Suicide Risk Level Suicide Risk Level: Moderate (q15 min suicide checks) (s/p ingestion, more ambivalent than active SI at this time and feels safe on the unit and agrees to go to staff if she feels unsafe, has intrusive self-harm thoughts but managing well with no impulsivity ) Risk Factors Assessment : Yes Do You Have Access To A Gun?: Yes (landlord/housemate has firearm) Health Problems: Yes Mental Health Diagnoses: Yes Substance Use Disorders: No Previous Attempt: Yes Previous Psychiatric Hospitalization: Yes Protective Factors Assessment Employed: Yes Interval History Identifying Information MAYA MEYERS, prefers non-binary Yola is a 26-year-old genetic F who currently lives in [place], has a history of mutiple hospitalizations/suicide attempts, and was admitted on 10/22/21 22:21 on a 201 voluntary commitment on transfer from the medical floor s/p ASA ingestion with cinchonism. Chief Complaint "There is a willingness to try now". Review of Systems Sleep Information Total Hours of Sleep: 6.5 Sleep Comments: pt given trazodone per rn. pt on q-15 minute check Meal Information Percent Meal Consumed - Breakfast: 15 Percent Meal Consumed - Lunch: 50 Percent Meal Consumed - Dinner: 50 Nutrition Comment: poor appetite; ate some banana and coffee Subjective Subjective Patient was seen & assessed and interval progress reviewed with treatment team nursing and social work. Yola reviewed that they continue to have chronic thoughts for self-harm but these are lessening in intensity and frequency and they feel a "willingness to try now" related to living. They rescheduled their outpatient therapy appointment as the clinic will be transitioning back to in- person appointments and the idea of attending a psychiatry and therapy appointment on the same day feels anxiety provoking. They reviewed safety planning and ways they can seek support and built more support over time. They found the switch in timing of sertraline to be helpful as they didn't experience the activation last night and slept better. They like taking it mid-day. Future- oriented about goals of exposure CBT therapy to help with anxiety. Reviewed that they continue to have reasons for living and ways to challenge intrusive- thoughts. Physical Exam Psychiatric Orientation: alert and oriented x 3 Apperance: appropriately dressed and appropriately groomed Eye Contact: good eye contact Motor Behavior: no abnormal motor movements Speech: normal rate/rhythm/volume of speech Affect: + anxious affect and + constricted affect (but smiles at times ) Mood: + anxious mood Thought Process: goal directed thought process Thought Content: reality based without delusions Suicidal Thoughts: denies suicidal thoughts (has urges to SIB but no impulsivity noted.), denies suicidal plan and denies suicidal intent Homicidal Thoughts: denies homicidal thoughts Hallucinations: no auditory hallucinations and no visual hallucinations Cognition: attention grossly intact and language grossly intact Estimated Intelligence: consistent with education level Insight: + fair insight Judgement: + fair judgement Vital Signs (Past 24 Hours) Last Vital Signs Temp 36.9 C 10/30/21 06:45 Pulse 91 H 10/30/21 06:45 Resp 16 10/30/21 06:45 BP 87/61 L 10/30/21 06:45 Pulse Ox 95 10/22/21 22:39 Results & Data ([facility]) Laboratory Results Laboratory Results - last 24 hr 10/29/21 10/29/21 10/29/21 12:46 17:17 20:41 POC Glucose 130 H 129 H 106 H 10/30/21 08:26 POC Glucose 96 Current Inpatient Medications Current Inpatient Medications: Current Inpatient Medications Al Hydrox/Mg Hydrox/Simethicone (Aluminum/Magnesium Susp 30 Ml Udc) 30 ml PO Q4H PRN PRN Reason: GI Upset Stop: 11/21/21 21:38 Bismuth Subsalicylate (Bismuth Subsalicylate Liqd 236 Ml) 15 ml PO PRN PRN PRN Reason: Loose Stool Stop: 11/21/21 21:38 Bupropion HCl (Bupropion Xl 300 Mg Tabcr) 300 mg PO QAM RANDOLPH Stop: 11/22/21 10:29 Last Admin: 10/30/21 08:44 Dose: 300 mg Documented by: Dextrose (Dextrose 50% 50 Ml Syringe) 25 - 50 ml IV UD PRN; Protocol PRN Reason: Hypoglycemia Protocol Stop: 11/22/21 01:14 Fish Oil (Largo-3 (Purified Fish Oil) 1 Gm Cap) 1 gm PO QAM RANDOLPH Stop: 11/22/21 10:29 Last Admin: 10/30/21 08:45 Dose: 1 gm Documented by: Fluticasone Furoate (Fluticasone Furoate 100mcg 14 Puffs/Inhaler) 1 puffs INH QAM RANDOLPH Stop: 11/22/21 10:29 Last Admin: 10/30/21 08:46 Dose: 1 puffs Documented by: Glucagon (Glucagon For Inj 1 Mg Vial) 1 mg IM UD PRN; Protocol PRN Reason: Hypoglycemia Protocol Stop: 11/22/21 01:14 Glucose (Glucose 40% Gel 15 Gm Tube) 15 - 30 gm PO UD PRN; Protocol PRN Reason: Hypoglycemia Protocol Stop: 11/22/21 01:14 Glucose (Glucose 10 Tabs/Tube) 4 - 8 tabs PO UD PRN; Protocol PRN Reason: Hypoglycemia Protocol Stop: 11/22/21 01:14 Hydroxyzine HCl (Hydroxyzine Hcl 25 Mg Tab) 50 mg PO HSZ PRN PRN Reason: Insomnia Stop: 11/21/21 21:38 Hydroxyzine HCl (Hydroxyzine Hcl 25 Mg Tab) 25 mg PO Q4H PRN PRN Reason: Anxiety Stop: 11/21/21 21:38 Insulin Aspart (Insulin Aspart Per Unit) 0 units SC 0800,1200 [facility] Stop: 11/27/21 07:59 Last Admin: 10/29/21 13:28 Dose: 4 units Documented by: Insulin Aspart (Insulin Aspart Per Unit) 0 units SC 1715,2200 [facility] Stop: 11/27/21 17:14 Last Admin: 10/29/21 21:13 Dose: 3 units Documented by: Insulin Glargine (Insulin Glargine Solostar 100 Units/Ml 3 Ml Pen) 20 units SC DAILY@1700 [facility] Stop: 11/22/21 16:59 Last Admin: 10/29/21 17:49 Dose: 20 units Documented by: Linaclotide (Linaclotide 72 Mcg Capsule) 72 mcg PO DAILY [facility] Stop: 11/22/21 10:29 Last Admin: 10/30/21 08:45 Dose: 72 mcg Documented by: Magnesium Hydroxide (Magnesium Hydroxide Susp 30 Ml Udc) 30 ml PO DAILY PRN PRN Reason: Constipation Stop: 11/21/21 21:38 Miscellaneous (Carbohydrates For Hypoglycemia ) 15 - 30 gm PO UD PRN PRN Reason: Hypoglycemia Treatment Stop: 11/22/21 01:14 Last Admin: 10/27/21 21:24 Dose: 15 gm Documented by: Miscellaneous Information (Pharmacy Glycemic Mgmt Consult) 1 ea N/A UD PRN PRN Reason: Consult Stop: 11/21/21 21:47 Pantoprazole Sodium (Pantoprazole 40 Mg Tab) 40 mg PO BID [facility] Stop: 11/26/21 20:59 Last Admin: 10/30/21 08:45 Dose: 40 mg Documented by: Polyethylene Glycol (Polyethylene (Miralax) 17 Gm Pack) 17 gm PO DAILY PRN PRN Reason: Constipation Stop: 11/22/21 18:32 Prenat Multivit/Pinhook/Iron/Folic Ac ( Vitamin 1 Tab) 1 tab PO QAM [facility] Stop: 11/23/21 08:59 Last Admin: 10/30/21 08:45 Dose: 1 tab Documented by: Propranolol HCl (Propranolol Hcl 20 Mg Tab) 20 mg PO BIDM [facility] Stop: 11/26/21 17:44 Last Admin: 10/30/21 08:44 Dose: 20 mg Documented by: Sennosides (Senna 8.6 Mg Tab) 8.6 mg PO QAM [facility] Stop: 11/22/21 18:44 Last Admin: 10/30/21 08:59 Dose: Not Given Documented by: Sertraline HCl (Sertraline Hcl 50 Mg Tablet) 50 mg PO DAILYBL [facility] Stop: 11/28/21 11:59 Last Admin: 10/29/21 12:57 Dose: 50 mg Documented by: Sodium Chloride (Sodium Chloride 0.65% Na Soln 45 Ml (Mower)) 1 - 2 sprays NA PRN PRN PRN Reason: Nasal Dryness/Congestion Stop: 11/21/21 21:38 Sodium Chloride (Sodium Chloride 1 Gm Tablet) 1 gm PO BID PRN PRN Reason: orthostatic hypotension Stop: 11/22/21 09:38 Trazodone HCl (Trazodone Hcl 50 Mg Tab) 50 mg PO HS [facility] Stop: 11/21/21 21:59 Last Admin: 10/29/21 21:16 Dose: 50 mg Documented by: Vitamin D (Cholecalciferol 1,000 Units 25 Mcg Tab) 4,000 units PO DAILY [facility] Stop: 11/22/21 10:29 Last Admin: 10/30/21 08:45 Dose: 4,000 units Documented by: Vitamin E (Tocopheryl, Dl-Alpha 100 Units Cap) 400 units PO QAM [facility] Stop: 11/23/21 08:59 Last Admin: 10/30/21 08:45 Dose: 400 units Documented by: Mental Health & Subst Abuse Tx Psychiatrist Name of Psychiatrist: [facility] - Dr. Annette Sahu Psychiatrist's Date of Appointment with Psychiatrist: 10/31/21 Time of Appointment with Psychiatrist: 11:00 AM Psychiatric Appointment Comment: Orlando Manrique, [address] [place] [address] Therapist Name of Therapist: [facility] - Nereida Butler Therapist's Date of Therapist Appointment: 10/31/21 Time of Therapist Appointment: 4:00 p.m. Therapy Appointment Comment: Orlando Manrique [address] [place] [address] Field Software Engineer Name of Field Software Engineer: ELMIRA Caballero Phone Number for Field Software Engineer: [phone] Post Discharge Appointments Primary Care Physician Name Of Family Doctor: [facility] Time of Appointment with PCP: Follow up as needed Provider Appointment Comment: [address], [place] Contact Information Discharge Discharge Address: [address] [place] [address] (1) Type I diabetes mellitus Diabetes mellitus complication status: with other specified complication Qualified Code(s): E10.69 - Type 1 diabetes mellitus with other specified complication
[2021-10-30] MEDS: INSULIN ASPART PER UNIT SC SCH ×4 (09:08→21:40)
[2021-10-30] MEDS: SERTRALINE HCL 50 MG TABLET PO SCH (12:16)
[2021-10-30] MEDS: INSULIN GLARGINE SOLOSTAR 100 UNITS/ML 3 ML PEN SC SCH (17:43)
[2021-10-30] MEDS: traZODone HCL 50 MG TAB PO SCH (21:42)
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
[2021-10-31] MEDS: linaCLOtide 72 MCG CAPSULE PO SCH (08:44)
[2021-10-31] MEDS: CHOLECALCIFEROL 1,000 UNITS 25 MCG TAB PO SCH (08:45)
[2021-10-31] MEDS: PRENATAL VITAMIN 1 TAB PO SCH (08:45)
[2021-10-31] MEDS: PANTOprazole 40 MG TAB PO SCH (08:45)
[2021-10-31] MEDS: OMEGA-3 (PURIFIED FISH OIL) 1 GM CAP PO SCH (08:45)
[2021-10-31] MEDS: FLUTICASONE FUROATE 100MCG 14 PUFFS/INHALER INH SCH (08:45)
[2021-10-31] MEDS: TOCOPHERYL, DL-ALPHA 100 UNITS CAP PO SCH (08:46)
[2021-10-31] MEDS: buPROPion XL 300 MG TABCR PO SCH (08:46)
[2021-10-31] MEDS: PROPRANOLOL HCL 20 MG TAB PO SCH (08:47)
[2021-10-31] MEDS: SENNA 8.6 MG TAB PO SCH (08:48)
[2021-10-31] MEDS: INSULIN ASPART PER UNIT SC SCH (09:30)
== END 2021-10-31 10:24 | disposition home or self-care (01) | DRG 881 ==
LOC: 3S 22:21

== ENCOUNTER 2021-11-04 21:04 | Inpatient (IN) ==
[2021-11-04] MEDS ORDERED: SODIUM CHLORIDE 0.9% 1000ML 1,000 ML IV ONE (21:33)
[2021-11-04] MEDS ORDERED: ONDANSETRON INJ 2 MG/ML 2 ML VIAL IV STA (21:33)
--- NOTE | 2021-11-04 21:43 | XRay Report ---
XR chest 1V portable CLINICAL HISTORY: SEPSIS TECHNIQUE: Single frontal radiograph of the chest was obtained. Comparison: Comparison is made to chest radiograph 08/01/2021 FINDINGS: No lines and tubes are seen. The cardiomediastinal silhouette is normal. The lungs are clear. No evid ence of pleural effusion or pneumothorax. IMPRESSION: No acute abnormalities and in particular no evidence of pneumonia. ACT 112: Negative or not required by law. Electronically signed by: Tariq Allred M.D. 11/04/2021 9:42 PM
[2021-11-04] MEDS ORDERED: SODIUM CHLORIDE 0.9% 1000ML 1,000 ML IV SCH (21:45)
[2021-11-04 21:56] LABS: Base Excess VBG -12.5 mEq/L; HCO3 VBG 14 mmol/L; Oxygen Saturation VBG < 60.0 %; PCO2 VBG 35 mmHg (38-50); PO2 VBG 22 mmHg; pH VBG 7.22 (7.36-7.41)
[2021-11-04 22:04] LABS: INR 1.1 (0.9-1.1); Partial Thromboplastin Time 27.4 Seconds (21.0-31.0)
[2021-11-04 22:07] LABS: Pregnancy Test, Serum Negative (Negative)
[2021-11-04 22:16] LABS: Albumin Globulin Ratio 1.4 (0.9-2); Albumin Level 4.7 gm/dl (3.4-5.0); BUN Creatinine Ratio 22.8 (10-20); Bilirubin,Total 2.4 mg/dl (0.2-1.0); Calcium 9.6 mg/dl (8.5-10.1); Creatinine Clr Calc Pharmacy 72.2 ml/min; Est GFR (African American) 88.3 ml/min; Est GFR (Non-African American) 76.2 ml/min; Globulin 3.4 gm/dl (2.5-4.0); Magnesium 1.8 mg/dl (1.7-2.4); Total Protein 8.1 gm/dl (6.0-8.3)
[2021-11-04] MEDS ORDERED: DKA GOAL RANGE 150-250 mg/dl ONE (22:18)
[2021-11-04] MEDS ORDERED: STAT IV Infusion **Titration per Protocol STA ×2 (22:18)
[2021-11-04] MEDS ORDERED: INSULIN REGULAR 250 UNITS in SODIUM CHLORIDE 0.9% 247.5 ML IV SCH (22:30)
[2021-11-04 22:47] LABS: Basophils # (auto) 0.02 K/uL (0-0.2); Basophils % (auto) 0.3 %; Hematocrit (blood only) 40.8 % (37-47); Immature Granulocytes # (auto) 0.02 K/uL (0.00-0.02); Immature Granulocytes % (auto) 0.3 %; Lymphocytes # (auto) 0.65 K/uL (1.2-3.4); Lymphocytes % (auto) 8.3 %; Mean Corpuscular Hemoglobin 30.5 pg (25-34); Mean Corpuscular Hgb Conc 34.3 g/dL (32-36); Mean Corpuscular Volume 88.9 fL (80-100); Mean Platelet Volume 11.6 fL (7.4-10.4); Monocytes # (auto) 0.18 K/uL (0.11-0.59); Monocytes % (auto) 2.3 %; Neutrophils # (auto) 6.94 K/uL (1.4-6.5); Neutrophils % (auto) 88.8 %; Platelet Count 343 K/uL (130-400); RDW Coefficient of Variation 12.2 % (11.5-14.5); Red Blood Count 4.59 M/uL (4.2-5.4); White Blood Count 7.81 K/uL (4.8-10.8)
[2021-11-04 22:59] LABS: Appearance Urine Clear (Clear); Bacteria Urine Automated 2+ (Negative); Bilirubin Urine Negative (Negative); Blood Urine Negative (Negative); Color Urine Yellow; Epithelial Cell Urine Auto >30 /lpf (0-5); Glucose Urine UA 3+ (Negative); Ketones Urine 4+ (Negative); Leukocyte Esterase Urine 1+ (Negative); Nitrite Urine Negative (Negative); Protein Urine Negative (Negative); Specific Gravity Urine 1.024 (1.000-1.030); Urobilinogen Urine Negative (Negative)
--- NOTE | 2021-11-04 23:06 | Emergency Department Note ---
History of Present Illness General Chief complaint: Hyperglycemia Stated complaint: NAUSEA, VOMITING, SOB, POSS DKA Time Seen by Provider: 11/04/21 21:24 History of Present Illness This 26-year-old type I diabetic presents to the ER complaining of hyperglycemia insulin pump malfunction with nausea and vomiting Location: Generalized Quality: Nausea Severity: Moderate Duration: Today Timing: Today Context: Patient noticed her pump was not working and was concerned and came in Modifying factors: better with insulin; worse with pump not working Patient states she did not notice right away that her pump was not working correctly. Patient denies chest pain, dyspnea, fevers, flulike illness, urinary symptoms, abdominal pain. She is concerned she is back in DKA. Patient took extra insulin today. Home Medications Medication Instructions Recorded Confirmed Type insulin glargine 100 unit/mL (3 20 units SQ DAILY@16 PRN ml 11/26/18 11/04/21 History mL) subcutaneous pen (Basaglar KwikPen U-100 Insulin) inhalational spacing device #1 ea 03/27/19 11/01/21 Rx (Aerochamber MV) insulin pump controller 12/27/19 11/01/21 History comp.stocking,thigh,short,smal #2 ea 09/21/20 11/01/21 Rx fluticasone propionate 220 220 mcg INHALATION QAM 02/12/21 11/04/21 History mcg/actuation HFA aerosol inhaler (Flovent HFA) propranolol 60 mg capsule,24 60 mg PO HS 02/12/21 11/04/21 History hr,extended release (Inderal LA) trazodone 50 mg tablet 50 mg PO HS 02/12/21 11/04/21 History hydroxyzine HCl 25 mg tablet 25 mg PO DAILY PRN tab 05/12/21 11/04/21 History cholecalciferol (vitamin D3) 50 100 mcg PO DAILY cap 07/04/21 11/04/21 History mcg (2,000 unit) capsule ketorolac 10 mg tablet 10 mg PO Q6H PRN 07/04/21 11/04/21 History onabotulinumtoxinA 200 unit See Rx Instructions IM .COMPLEX #1 07/04/21 11/04/21 Rx solution for injection (Botox) ea prenat.vits,mathieu,hjq-xbxw-nndnw 1 tab PO QAM 07/04/21 11/04/21 History vitamin E (dl, acetate) 45 mg (100 45 mg PO QAM 07/04/21 11/04/21 History unit) capsule sodium chloride 1 gram tablet 1,000 mg PO BID PRN 07/20/21 11/04/21 History acetone (urine) test (Ketostix) #100 ea 08/09/21 11/01/21 Rx glucagon 3 mg/actuation nasal spray 3 mg INTRANASAL PRN #2 ea 08/09/21 11/04/21 Rx insulin syringe-needle U-100 0.3 #100 ea 08/09/21 11/01/21 Rx mL 29 gauge x 1/2" (BD Insulin Syringe) insulin aspart U-100 100 unit/mL 100 unit CONTINUOUS SUBCUTANEOUS 09/08/21 11/04/21 Rx subcutaneous solution INFUSION CONTINOUS 90 Days #90 ml bupropion HCl 150 mg 24 hr tablet, 300 mg PO QAM 10/22/21 11/04/21 History extended release sertraline 50 mg tablet 50 mg PO DAILYBL 7 Days #7 tab 10/31/21 11/04/21 Rx brexpiprazole 1 mg tablet (Rexulti) 1 mg PO QAM 11/04/21 11/04/21 History linaclotide 72 mcg capsule 72 mcg PO DAILY PRN 11/04/21 11/04/21 History (Linzess) omega 5-yzb-vsg-fish oil 1,000 mg 1 cap PO HS 11/04/21 11/04/21 History (120 mg-180 mg) capsule (Fish Oil) pantoprazole 40 mg tablet,delayed 40 mg PO BID 11/04/21 11/04/21 History release Allergies Allergy/AdvReac Type Severity Reaction Status Date / Time gluten Allergy Severe CELIAC'S Verified 11/04/21 22:50 DISEASE Penicillins Allergy Severe ANAPHYLAXIS Verified 11/04/21 22:50 shellfish derived Allergy Severe ANAPHYLAXIS Verified 11/04/21 22:50 apple Allergy Intermediate THROAT Verified 11/04/21 22:50 SWELLS house dust Allergy Intermediate Hives Verified 11/04/21 22:50 oxcarbazepine Allergy Intermediate Rash,hives Verified 11/04/21 22:50 and itchiness. lactose AdvReac Intermediate Gatrointestinal Verified 11/04/21 22:50 Upset sumatriptan [From Imitrex] AdvReac Intermediate INTENSIFIES Verified 11/04/21 22:50 HEADACHE Past Med/Surg History Medical History Acid reflux disease (~2013) Allergic rhinitis Asthma . Borderline personality disorder . Celiac disease Chronic joint pain Depression Depression with suicidal ideation Diabetic gastroparesis associated with type 1 diabetes mellitus (~2016) DKA (diabetic ketoacidoses) Generalized anxiety disorder Gilbert's syndrome Intentional overdose Irritable bowel syndrome with constipation Lumbar radiculopathy Migraines Osteopenia Osteoporosis Type I diabetes mellitus (~2013) Followed by Endocrinology Surgical History History of cataract surgery bilateral History of colonoscopy History of esophagogastroduodenoscopy (EGD) History of strabismus surgery right Family History Mother Alcohol abuse Adult celiac disease Osteoporosis Seizure Celiac disease Father Skin cancer squamous cell Drug abuse Alcohol abuse Anxiety Seizure Grandfather Alcohol abuse Uncle Drug abuse Alcohol abuse Brother Drug abuse Unknown Cancer Grandmother Diabetes Colorectal cancer Celiac disease Grandmother Type 1 diabetes Other Bipolar 1 disorder No family history of adverse response to anesthesia Denies family history of Ovarian cancer Prostate cancer Myocardial infarction Breast cancer Lung cancer Hypertension Social History Smoking Status: Never smoker Tobacco Type: Cigarettes Age Started Using Tobacco: 18; Age Quit Using Tobacco: 20; Cigarettes Per Day: 1 per month; Second Hand Exposure: Yes; Hx Alcohol Use: No Hx Substance Use: No Preferred Language: Wallisian Communication Ability: Effective Visual Impairment: No Limitations Hearing Ability: Normal Senior Air Director Required: No Beliefs That Will Affect Care: None marital status: Single Current Living Situation: Other Current Living Situation Comment: With landlord current occupational status: employed current occupation: [employer] Feels Safe at Home: Yes Childhood Exposure to Second-Hand Smoke: Yes caffeine: Yes Dental Care, Regularly: Yes Physical Activity Frequency: 3-4 Times per Week Physical Activity Frequency Comment: walks Seatbelt Use: always Sunscreen Use: Yes (when in the sun for an extended time) Assistive Devices: Glasses Review of Systems A total of 10 systems reviewed and were otherwise negative Physical Exam Vital Signs Vital Signs - 24 hr 11/04/21 21:09 11/04/21 21:41 11/04/21 21:45 Temperature 36.5 C Temperature Source Temporal Artery Scan Pulse Rate 91 H Pulse Rate [Finger] 94 H Respiratory Rate 18 20 Respiratory Effort / Characteristics Non-Labored Spontaneous Respiratory Depth Normal Blood Pressure 93/63 L Blood Pressure [Left Arm] 90/43 L Blood Pressure Mean 73 Blood Pressure Mean [Left Arm] 58 Blood Pressure Position Sitting Pulse Oximetry 98 96 96 Oxygen Delivery Method Room Air Room Air Room Air Sepsis Recent Fever Within 48 Hours No Sepsis New/Unexplained Change in Mental Status N/A Sepsis Action Taken by Nursing No Action Required 11/04/21 22:01 11/04/21 22:30 11/04/21 23:43 Temperature Temperature Source Pulse Rate 95 H 100 H 96 H Pulse Rate [Finger] Respiratory Rate 24 24 20 Respiratory Effort / Characteristics Respiratory Depth Blood Pressure 82/45 L 88/48 L 99/52 L Blood Pressure [Left Arm] Blood Pressure Mean 57 61 67 Blood Pressure Mean [Left Arm] Blood Pressure Position Pulse Oximetry 97 100 99 Oxygen Delivery Method Sepsis Recent Fever Within 48 Hours Sepsis New/Unexplained Change in Mental Status Sepsis Action Taken by Nursing VITALS: Vitals are noted on the nurse's note and reviewed by myself. Vital signs blood pressure normally runs in the 90s. GENERAL: Pleasant female speaking in full sentences nauseous appearing, in no acute distress, nondiaphoretic, well-developed well-nourished. SKIN: The skin was without rashes, erythema, edema, or bruising. There is no tenting of the skin. Capillary reflex less than 2 seconds. HEAD: Normocephalic atraumatic. EARS: External auditory canals clear, tympanic membranes pearly curry without erythema or effusion bilaterally. EYES: Pupils equal round and reactive to light and accommodation. Conjunctivae without injection, sclerae without icterus. Extraocular movements intact. NOSE: Patent, turbinates without inflammation or discharge. MOUTH: Mucous membranes dry pharynx without erythema or exudate. Uvula midline. Airway patent. Tongue does not deviate. NECK: Supple without nuchal rigidity. No lymphadenopathy. No thyromegaly. Cervical spine is nontender. No JVD. HEART: Regular rate and rhythm LUNGS: Clear to auscultation bilaterally without wheezes, rales or rhonchi. No retractions or accessory muscle use. ABDOMEN: Positive bowel sounds x 4. Normal tympanic percussion. Soft, nontender, without masses or organomegaly. Benedict sign negative. No guarding or rebound tenderness. No CVA tenderness MUSCULOSKELETAL: No muscle atrophy, erythema, or edema noted. NEURO: Patient was alert and oriented to person place and time. Normal sensation to light and sharp touch. No focal neurological deficits. Course Administered Medications Insulin Human Regular 250 (units/ Sodium Chloride) 250 mls @ 5 mls/hr IV .Q24H RANDOLPH; Protocol Stop: 12/04/21 22:29 Last Admin: 11/04/21 22:46 Dose: 5 units/hr, 5 mls/hr Documented by: [id number] Cosigned by: [id number] Discontinued Medications Sodium Chloride (Nss 1000ml) 1,000 mls @ 999 mls/hr IV .Q1H1M RANDOLPH Stop: 11/04/21 22:45 Last Infusion: 11/04/21 22:50 Dose: 0 mls/hr Documented by: [id number] Admin: 11/04/21 21:45 Dose: 999 mls/hr Documented by: [id number] Sodium Chloride (Nss 1000ml) 1,000 mls @ 999 mls/hr IV .Q1H1M ONE Stop: 11/04/21 22:33 Last Infusion: 11/04/21 22:38 Dose: 0 mls/hr Documented by: [id number] Admin: 11/04/21 21:45 Dose: 999 mls/hr Documented by: [id number] Miscellaneous (Stat Iv Infusion Titration Per Protocol) 1 ea N/A NOW STA Stop: 11/04/21 22:19 Last Admin: 11/04/21 22:50 Dose: Not Given Documented by: [id number] Miscellaneous (Stat Iv Infusion Titration Per Protocol) 1 ea N/A NOW STA Stop: 11/04/21 22:19 Last Admin: 11/04/21 22:50 Dose: Not Given Documented by: [id number] Katelyn (Dka Goal Range 150-250 Mg/Dl) 1 ea N/A ONE ONE Stop: 11/04/21 22:19 Last Admin: 11/04/21 22:50 Dose: Not Given Documented by: [id number] Ondansetron HCl (Ondansetron Inj 2 Mg/Ml 2 Ml Vial) 4 mg IV NOW STA Stop: 11/04/21 21:34 Last Admin: 11/04/21 21:44 Dose: 4 mg Documented by: [id number] Critical Care Time Critical Care Time: Yes Total Critical Care Time: 35 I have personally spent 35 minutes of critical care time in the direct management of this patient. This includes bedside care, interpretation of diagnostic studies, and testing, discussion with consultants, patient, and family members, and other required patient management activities. This 35 minutes is in excess of all separately billable procedures. Medical Decision Making Medical Records Attestation: I reviewed the patient's medical records. Home Medications Current Medication List: was personally reviewed by me Laboratory Data Attestation: I reviewed the patient's lab results. Result diagrams: 11/04/21 21:31 11/04/21 21:31 Lab Results 11/04/21 11/04/21 11/04/21 Range/Units 21:12 21:31 21:31 WBC 7.81 (4.8-10.8) K/uL RBC 4.59 (4.2-5.4) M/uL Hgb 14.0 (12.0-16.0) g/dL Hct 40.8 (37-47) % MCV 88.9 (80-100) fL MCH 30.5 (25-34) pg MCHC 34.3 (32-36) g/dL RDW Std Deviation 39.0 (36.4-46.3) fL RDW Coeff of Keanu 12.2 (11.5-14.5) % Plt Count 343 (130-400) K/uL MPV 11.6 H (7.4-10.4) fL Immature Gran % (Auto) 0.3 % Neut % (Auto) 88.8 % Lymph % (Auto) 8.3 % [place] % (Auto) 2.3 % Eos % (Auto) 0.0 % Baso % (Auto) 0.3 % Neut # (Auto) 6.94 H (1.4-6.5) K/uL Lymph # (Auto) 0.65 L (1.2-3.4) K/uL [place] # (Auto) 0.18 (0.11-0.59) K/uL Eos # (Auto) 0.00 (0-0.5) K/uL Baso # (Auto) 0.02 (0-0.2) K/uL Immature Gran # (Auto) 0.02 (0.00-0.02) K/uL PT 12.0 (9.0-12.0) Seconds INR 1.1 (0.9-1.1) APTT 27.4 (21.0-31.0) Seconds PTT Ratio 1.0 VBG pH (7.36-7.41) VBG pCO2 (38-50) mmHg VBG pO2 mmHg VBG HCO3 mmol/L VBG O2 Saturation % VBG Base Excess mEq/L Sodium (136-145) mmol/L Potassium (3.5-5.1) mmol/L Chloride (98-107) mmol/L Carbon Dioxide (21-32) mmol/L Anion Gap (3-11) BUN (6-23) mg/dl Creatinine (0.6-1.2) mg/dl Est Cr Clr Drug Dosing ml/min Est GFR ( Amer) ml/min Est GFR (Non-Af Amer) ml/min BUN/Creatinine Ratio (10-20) Glucose (70-99(Fasting)) mg/dl POC Glucose 494 H* (70-99) mg/dl Calcium (8.5-10.1) mg/dl Magnesium (1.7-2.4) mg/dl Total Bilirubin (0.2-1.0) mg/dl AST (13-39) U/L ALT (7-52) U/L Alkaline Phosphatase (34-104) U/L Total Protein (6.0-8.3) gm/dl Albumin (3.4-5.0) gm/dl Globulin (2.5-4.0) gm/dl Albumin/Globulin Ratio (0.9-2) HCG, Qual (Negative) Urine Color Urine Appearance (Clear) Urine pH (4.5-7.5) Ur Specific [place] (1.000-1.030) Urine Protein (Negative) Urine Glucose (UA) (Negative) Urine Ketones (Negative) Urine Blood (Negative) Urine Nitrite (Negative) Urine Bilirubin (Negative) Urine Urobilinogen (Negative) Ur Leukocyte Esterase (Negative) Urine WBC (Auto) (0-5) /hpf Urine RBC (Auto) (0-4) /hpf U Hyaline Cast (Auto) (0-5) /lpf U Epithel Cells (Auto) (0-5) /lpf Urine Bacteria (Auto) (Negative) SARS-CoV-2, RNA, NAAT (NEGATIVE) 11/04/21 11/04/21 11/04/21 Range/Units 21:31 21:31 21:35 WBC (4.8-10.8) K/uL RBC (4.2-5.4) M/uL Hgb (12.0-16.0) g/dL Hct (37-47) % MCV (80-100) fL MCH (25-34) pg MCHC (32-36) g/dL RDW Std Deviation (36.4-46.3) fL RDW Coeff of Keanu (11.5-14.5) % Plt Count (130-400) K/uL MPV (7.4-10.4) fL Immature Gran % (Auto) % Neut % (Auto) % Lymph % (Auto) % [place] % (Auto) % Eos % (Auto) % Baso % (Auto) % Neut # (Auto) (1.4-6.5) K/uL Lymph # (Auto) (1.2-3.4) K/uL [place] # (Auto) (0.11-0.59) K/uL Eos # (Auto) (0-0.5) K/uL Baso # (Auto) (0-0.2) K/uL Immature Gran # (Auto) (0.00-0.02) K/uL PT (9.0-12.0) Seconds INR (0.9-1.1) APTT (21.0-31.0) Seconds PTT Ratio VBG pH (7.36-7.41) VBG pCO2 (38-50) mmHg VBG pO2 mmHg VBG HCO3 mmol/L VBG O2 Saturation % VBG Base Excess mEq/L Sodium 129 L (136-145) mmol/L Potassium 5.0 (3.5-5.1) mmol/L Chloride 95 L (98-107) mmol/L Carbon Dioxide 15 L (21-32) mmol/L Anion Gap 19 H (3-11) BUN 23 (6-23) mg/dl Creatinine 1.01 (0.6-1.2) mg/dl Est Cr Clr Drug Dosing 72.2 ml/min Est GFR ( Amer) 88.3 ml/min Est GFR (Non-Af Amer) 76.2 ml/min BUN/Creatinine Ratio 22.8 H (10-20) Glucose 539 H* (70-99(Fasting)) mg/dl POC Glucose (70-99) mg/dl Calcium 9.6 (8.5-10.1) mg/dl Magnesium 1.8 (1.7-2.4) mg/dl Total Bilirubin 2.4 H (0.2-1.0) mg/dl AST 15 (13-39) U/L ALT 14 (7-52) U/L Alkaline Phosphatase 60 (34-104) U/L Total Protein 8.1 (6.0-8.3) gm/dl Albumin 4.7 (3.4-5.0) gm/dl Globulin 3.4 (2.5-4.0) gm/dl Albumin/Globulin Ratio 1.4 (0.9-2) HCG, Qual Negative (Negative) Urine Color Urine Appearance (Clear) Urine pH (4.5-7.5) Ur Specific [place] (1.000-1.030) Urine Protein (Negative) Urine Glucose (UA) (Negative) Urine Ketones (Negative) Urine Blood (Negative) Urine Nitrite (Negative) Urine Bilirubin (Negative) Urine Urobilinogen (Negative) Ur Leukocyte Esterase (Negative) Urine WBC (Auto) (0-5) /hpf Urine RBC (Auto) (0-4) /hpf U Hyaline Cast (Auto) (0-5) /lpf U Epithel Cells (Auto) (0-5) /lpf Urine Bacteria (Auto) (Negative) SARS-CoV-2, RNA, NAAT NEGATIVE (NEGATIVE) 11/04/21 11/04/21 11/04/21 Range/Units 21:42 22:33 22:34 WBC (4.8-10.8) K/uL RBC (4.2-5.4) M/uL Hgb (12.0-16.0) g/dL Hct (37-47) % MCV (80-100) fL MCH (25-34) pg MCHC (32-36) g/dL RDW Std Deviation (36.4-46.3) fL RDW Coeff of Keanu (11.5-14.5) % Plt Count (130-400) K/uL MPV (7.4-10.4) fL Immature Gran % (Auto) % Neut % (Auto) % Lymph % (Auto) % [place] % (Auto) % Eos % (Auto) % Baso % (Auto) % Neut # (Auto) (1.4-6.5) K/uL Lymph # (Auto) (1.2-3.4) K/uL [place] # (Auto) (0.11-0.59) K/uL Eos # (Auto) (0-0.5) K/uL Baso # (Auto) (0-0.2) K/uL Immature Gran # (Auto) (0.00-0.02) K/uL PT (9.0-12.0) Seconds INR (0.9-1.1) APTT (21.0-31.0) Seconds PTT Ratio VBG pH 7.22 L (7.36-7.41) VBG pCO2 35 L (38-50) mmHg VBG pO2 22 mmHg VBG HCO3 14 mmol/L VBG O2 Saturation < 60.0 % VBG Base Excess -12.5 mEq/L Sodium (136-145) mmol/L Potassium (3.5-5.1) mmol/L Chloride (98-107) mmol/L Carbon Dioxide (21-32) mmol/L Anion Gap (3-11) BUN (6-23) mg/dl Creatinine (0.6-1.2) mg/dl Est Cr Clr Drug Dosing ml/min Est GFR ( Amer) ml/min Est GFR (Non-Af Amer) ml/min BUN/Creatinine Ratio (10-20) Glucose (70-99(Fasting)) mg/dl POC Glucose 426 H* 438 H* (70-99) mg/dl Calcium (8.5-10.1) mg/dl Magnesium (1.7-2.4) mg/dl Total Bilirubin (0.2-1.0) mg/dl AST (13-39) U/L ALT (7-52) U/L Alkaline Phosphatase (34-104) U/L Total Protein (6.0-8.3) gm/dl Albumin (3.4-5.0) gm/dl Globulin (2.5-4.0) gm/dl Albumin/Globulin Ratio (0.9-2) HCG, Qual (Negative) Urine Color Urine Appearance (Clear) Urine pH (4.5-7.5) Ur Specific [place] (1.000-1.030) Urine Protein (Negative) Urine Glucose (UA) (Negative) Urine Ketones (Negative) Urine Blood (Negative) Urine Nitrite (Negative) Urine Bilirubin (Negative) Urine Urobilinogen (Negative) Ur Leukocyte Esterase (Negative) Urine WBC (Auto) (0-5) /hpf Urine RBC (Auto) (0-4) /hpf U Hyaline Cast (Auto) (0-5) /lpf U Epithel Cells (Auto) (0-5) /lpf Urine Bacteria (Auto) (Negative) SARS-CoV-2, RNA, NAAT (NEGATIVE) 11/04/21 11/04/21 Range/Units 22:40 23:33 WBC (4.8-10.8) K/uL RBC (4.2-5.4) M/uL Hgb (12.0-16.0) g/dL Hct (37-47) % MCV (80-100) fL MCH (25-34) pg MCHC (32-36) g/dL RDW Std Deviation (36.4-46.3) fL RDW Coeff of Keanu (11.5-14.5) % Plt Count (130-400) K/uL MPV (7.4-10.4) fL Immature Gran % (Auto) % Neut % (Auto) % Lymph % (Auto) % [place] % (Auto) % Eos % (Auto) % Baso % (Auto) % Neut # (Auto) (1.4-6.5) K/uL Lymph # (Auto) (1.2-3.4) K/uL [place] # (Auto) (0.11-0.59) K/uL Eos # (Auto) (0-0.5) K/uL Baso # (Auto) (0-0.2) K/uL Immature Gran # (Auto) (0.00-0.02) K/uL PT (9.0-12.0) Seconds INR (0.9-1.1) APTT (21.0-31.0) Seconds PTT Ratio VBG pH 7.17 L (7.36-7.41) VBG pCO2 (38-50) mmHg VBG pO2 mmHg VBG HCO3 mmol/L VBG O2 Saturation % VBG Base Excess mEq/L Sodium (136-145) mmol/L Potassium (3.5-5.1) mmol/L Chloride (98-107) mmol/L Carbon Dioxide (21-32) mmol/L Anion Gap (3-11) BUN (6-23) mg/dl Creatinine (0.6-1.2) mg/dl Est Cr Clr Drug Dosing ml/min Est GFR ( Amer) ml/min Est GFR (Non-Af Amer) ml/min BUN/Creatinine Ratio (10-20) Glucose (70-99(Fasting)) mg/dl POC Glucose (70-99) mg/dl Calcium (8.5-10.1) mg/dl Magnesium (1.7-2.4) mg/dl Total Bilirubin (0.2-1.0) mg/dl AST (13-39) U/L ALT (7-52) U/L Alkaline Phosphatase (34-104) U/L Total Protein (6.0-8.3) gm/dl Albumin (3.4-5.0) gm/dl Globulin (2.5-4.0) gm/dl Albumin/Globulin Ratio (0.9-2) HCG, Qual (Negative) Urine Color Yellow Urine Appearance Clear (Clear) Urine pH 5.0 (4.5-7.5) Ur Specific [place] 1.024 (1.000-1.030) Urine Protein Negative (Negative) Urine Glucose (UA) 3+ H (Negative) Urine Ketones 4+ H (Negative) Urine Blood Negative (Negative) Urine Nitrite Negative (Negative) Urine Bilirubin Negative (Negative) Urine Urobilinogen Negative (Negative) Ur Leukocyte Esterase 1+ H (Negative) Urine WBC (Auto) 10-30 H (0-5) /hpf Urine RBC (Auto) 5-10 H (0-4) /hpf U Hyaline Cast (Auto) 1-5 (0-5) /lpf U Epithel Cells (Auto) >30 H (0-5) /lpf Urine Bacteria (Auto) 2+ H (Negative) SARS-CoV-2, RNA, NAAT (NEGATIVE) Imaging Data Attestation: I personally reviewed and interpreted this imaging study as follows: Radiologist's Impression: Chest X-Ray 11/04/21 21:32 XR chest 1V portable CLINICAL HISTORY: SEPSIS TECHNIQUE: Single frontal radiograph of the chest was obtained. Comparison: Comparison is made to chest radiograph 08/01/2021 FINDINGS: No lines and tubes are seen. The cardiomediastinal silhouette is normal. The lungs are clear. No evidence of pleural effusion or pneumothorax. IMPRESSION: No acute abnormalities and in particular no evidence of pneumonia. ACT 112: Negative or not required by law. Electronically signed by: Tariq Allred M.D. 11/04/2021 9:42 PM [facility] Narrative Prior records/ancillary studies reviewed and summarized above. Nursing notes reviewed. Additional history obtained from nursing. The patient's history was concerning for nausea vomiting and hyperglycemia. Differential diagnosis: Etiologies such as metabolic, infection, hypo/hyperglycemia, electrolyte abnormalities, cardiac sources, intracerebral event, toxicologic, neurologic, as well as others were entertained. Physical examination: As above. ER treatment provided: IV Lock An order was placed for continuous cardiac monitoring. The monitor shows a rate of 60-1 50 with a sinus rhythm. IV fluids, insulin drip, Zofran On reassessment the patient felt better. Diagnostics interpretation by me: ECG: Ordered for weakness EKG: Normal sinus, normal intervals, no acute ST-T wave changes. Impression normal sinus rhythm interpreted by myself I think arrhythmia is unlikely. EKG shows normal sinus rhythm with no interval abnormalities such as QT prolongation or WPW. There are no findings to suggest Brugada syndrome. Cardiac monitoring in the emergency department reveals no tachycardic or bradycardic dysrhythmia. Hypertrophic cardiomyopathy was considered but there are no clear historical elements pointing toward this. EKG is not suggestive. The QRS voltage is not extremely large and there are no suggestive Q waves. The labs revealed hyperglycemia with DKA pH 7.22 on a VBG Imaging studies: As above Consultation: A consultation was placed with the hospitalist. The case was discussed and diagnostics were reviewed. The patient was evaluated in the ER for further treatment. The herb grower midlevel Raphael was informed and will evaluate the patient. Exam and history seem consistent with DKA. Patient was started on IV fluids and then insulin drip. She was reassessed multiple times. Medicine is consulted. She will be admitted. By the evaluation outlined above emergent etiologies such as infection, cardiac sources, intracerebral event, toxologic, neurologic, as well as others were deemed relatively unlikely. The pt informed about the findings as listed above. All questions were answered and pleased with the treatment. The chart was completed utilizing [employer] Speech voice recognition software. Grammatical errors, random word insertions, pronoun errors, and incomplete sentences are an occassional consequence of this system due to software limitations, ambient noise, and hardware issues. Any formal questions or concerns about the content, text, or information contained within the body of t his dictation should be directly addressed to the physician portfolio assistant for clarification. Impression & Plan DKA (diabetic ketoacidosis) Discharge Plan Visit Data Chief Complaint: Hyperglycemia Stated Complaint: NAUSEA, VOMITING, SOB, POSS DKA ED Provider: Chau Nix ED Midlevel Provider: Viridiana Kolb Discharge Problem: DKA (diabetic ketoacidosis) Patient Disposition: Admitted As Inpatient Condition: Good Discharge Instructions Interventions: ED Discharge Assessment Last Done: 11/04/21 23:39 Forms Stand Alone Forms: [employer] Prescriptions Prescriptions: No Action Toshiaagledwin ClementikPen U-100 Insulin 100 unit/mL (3 mL) insulin pen 20 units SQ DAILY@16 PRN (Reason: Novolog Pump Failure) RF: 0 insulin aspart U-100 100 unit/mL solution 100 unit continuous subcutaneous infusion CONTINOUS 90 Days Qty: 90 RF: 1 (DME) Aerochamber MV spacer See Rx Instructions .ROUTE .MEDSUPPLY Qty: 1 RF: 0 hydroxyzine HCl 25 mg tablet 25 mg PO DAILY PRN (Reason: Anxiety) RF: 0 (DME) Ketostix Strip See Rx Instructions .ROUTE .MEDSUPPLY Qty: 100 RF: 2 glucagon 3 mg/actuation spray,non-aerosol 3 mg intranasal PRN Qty: 2 RF: 3 (DME) insulin syringe-needle U-100 [BD Insulin Syringe] 0.3 mL 29 gauge x 1/2" syringe See Rx Instructions .Route Qty: 100 RF: 3 (DME) comp.stocking,thigh,short,smal Misc See Rx Instructions .ROUTE .MEDSUPPLY Qty: 2 RF: 1 ketorolac 10 mg tablet 10 mg PO Q6H PRN (Reason: Pain) RF: 0 vitamin E (dl, acetate) 45 mg (100 unit) capsule 45 mg PO QAM RF: 0 cholecalciferol (vitamin D3) 50 mcg (2,000 unit) capsule 100 mcg PO DAILY RF: 0 prenat.vits,mathieu,epy-eoyl-uvesl Tablet 1 tab PO QAM RF: 0 Botox 200 unit recon soln See Rx Instructions IM .COMPLEX Qty: 1 RF: 3 (DME) insulin pump controller Misc MISCELLANEOUS RF: 0 sodium chloride 1 gram tablet 1,000 mg PO BID PRN (Reason: orthostatic hypotension) RF: 0 bupropion HCl 150 mg tablet extended release 24 hr 300 mg PO QAM RF: 0 propranolol [Inderal LA] 60 mg capsule,extended release 24 hr 60 mg PO HS RF: 0 trazodone 50 mg tablet 50 mg PO HS RF: 0 fluticasone propionate [Flovent HFA] 220 mcg/actuation HFA aerosol inhaler 220 mcg INHALATION QAM RF: 0 sertraline 50 mg Tablet 50 mg PO DAILYBL 7 Days Qty: 7 RF: 0 pantoprazole 40 mg tablet,delayed release (DR/EC) 40 mg PO BID RF: 0 omega 9-ose-gsx-fish oil [Fish Oil] 1,000 mg (120 mg-180 mg) Capsule 1 cap PO HS RF: 0 Rexulti 1 mg tablet 1 mg PO QAM RF: 0 Linzess 72 mcg capsule 72 mcg PO DAILY PRN (Reason: Constipation) RF: 0 Referrals Referrals: Tamara Palomo PA-C [Primary Care Provider] -
--- NOTE | 2021-11-04 23:40 | History & Physical Report ---
Date of Service November 04, 2021 Assessment & Plan (1) DKA (diabetic ketoacidosis): Plan: 26 y/o F Hx depression, POTS, celiac, DM I. Recent admission for intentional ASA OD. Multiple DKA admissions. Presents with nausea, vomiting and LLAMAS. She recognized this as DKA and reports that her insulin pump had failed. DKA was confirmed on arrival to the ER with a glucose of 540 and a PH of 7.2. There is no evidence of infection and she states that her systolic pressure is typically in the 80s. 1) DKA - ICU protocol - insulin GTT, IVF, serial lytes, VBG. 2) Depression - cont sertraline, bupropion 3) IBS - Linzess PRN 4) POTS - takes Inderal and sodium tablets when needed 5) Low blood pressure - may be at baseline - monitor and cont IVF. Full code - Lovenox prophylaxis Total time for this admit including review of labs, meds, imaging, records - discussion with pt and ER attending 52 min (2) Type I diabetes mellitus: (3) Celiac disease: History of Present Illness Chief Complaint: 26 y/o F Hx depression, POTS, celiac, DM I. Recent admission for intentional ASA OD. Multiple DKA admissions. Presents with nausea, vomiting and LLAMAS. She recognized this as DKA and reports that her insulin pump had failed. DKA was confirmed on arrival to the ER with a glucose of 540 and a PH of 7.2. The pt's BP is low on admission. There is no evidence of infection and she states that her systolic pressure is typically in the 80s. PMH: 1) DM I 2) Depression with prior suicide attempt 3) Borderline personality 4) Celiac 5) POTS 6) IBS D 7) Gilbert's syndrome 8) Colonic polyps Surgical: 1) Cataract 2) Polypectomy Social: Does not drink alcohol or smoke. Family: Father - CAD Mother - Celiac disease, bipolar Primary Care Provider: Tamara Palomo PA-C 26 y/o F Hx depression, POTS, celiac, DM I. Recent admission for intentional ASA OD. Multiple DKA admissions. Presents with nausea, vomiting and LLAMAS. She recognized this as DKA and reports that her insulin pump had failed. DKA was confirmed on arrival to the ER with a glucose of 540 and a PH of 7.2. The pt's BP is low on admission. There is no evidence of infection and she states that her systolic pressure is typically in the 80s. PMH: 1) DM I 2) Depression with prior suicide attempt 3) Borderline personality 4) Celiac 5) POTS 6) IBS D 7) Gilbert's syndrome 8) Colonic polyps Surgical: 1) Cataract 2) Polypectomy Social: Does not drink alcohol or smoke. Family: Father - CAD Mother - Celiac disease, bipolar Allergies Allergy/AdvReac Type Severity Reaction Status Date / Time gluten Allergy Severe CELIAC'S Verified 11/04/21 22:50 DISEASE Penicillins Allergy Severe ANAPHYLAXIS Verified 11/04/21 22:50 shellfish derived Allergy Severe ANAPHYLAXIS Verified 11/04/21 22:50 apple Allergy Intermediate THROAT Verified 11/04/21 22:50 SWELLS house dust Allergy Intermediate Hives Verified 11/04/21 22:50 oxcarbazepine Allergy Intermediate Rash,hives Verified 11/04/21 22:50 and itchiness. lactose AdvReac Intermediate Gatrointestinal Verified 11/04/21 22:50 Upset sumatriptan [From Imitrex] AdvReac Intermediate INTENSIFIES Verified 11/04/21 22:50 HEADACHE Home Medications Medication Instructions Recorded Confirmed Type insulin glargine 100 unit/mL (3 20 units SQ DAILY@16 PRN ml 11/26/18 11/04/21 History mL) subcutaneous pen (Basaglar KwikPen U-100 Insulin) inhalational spacing device #1 ea 03/27/19 11/01/21 Rx (Aerochamber MV) insulin pump controller 12/27/19 11/01/21 History comp.stocking,thigh,short,smal #2 ea 09/21/20 11/01/21 Rx fluticasone propionate 220 220 mcg INHALATION QAM 02/12/21 11/04/21 History mcg/actuation HFA aerosol inhaler (Flovent HFA) propranolol 60 mg capsule,24 60 mg PO HS 02/12/21 11/04/21 History hr,extended release (Inderal LA) trazodone 50 mg tablet 50 mg PO HS 02/12/21 11/04/21 History hydroxyzine HCl 25 mg tablet 25 mg PO DAILY PRN tab 05/12/21 11/04/21 History cholecalciferol (vitamin D3) 50 100 mcg PO DAILY cap 07/04/21 11/04/21 History mcg (2,000 unit) capsule ketorolac 10 mg tablet 10 mg PO Q6H PRN 07/04/21 11/04/21 History onabotulinumtoxinA 200 unit See Rx Instructions IM .COMPLEX #1 07/04/21 11/04/21 Rx solution for injection (Botox) jesus garnett.vits,mathieu,hhu-wgci-fhuih 1 tab PO QAM 07/04/21 11/04/21 History vitamin E (dl, acetate) 45 mg (100 45 mg PO QAM 07/04/21 11/04/21 History unit) capsule sodium chloride 1 gram tablet 1,000 mg PO BID PRN 07/20/21 11/04/21 History acetone (urine) test (Ketostix) #100 ea 08/09/21 11/01/21 Rx glucagon 3 mg/actuation nasal spray 3 mg INTRANASAL PRN #2 ea 08/09/21 11/04/21 Rx insulin syringe-needle U-100 0.3 #100 ea 08/09/21 11/01/21 Rx mL 29 gauge x 1/2" (BD Insulin Syringe) insulin aspart U-100 100 unit/mL 100 unit CONTINUOUS SUBCUTANEOUS 09/08/21 11/04/21 Rx subcutaneous solution INFUSION CONTINOUS 90 Days #90 ml bupropion HCl 150 mg 24 hr tablet, 300 mg PO QAM 10/22/21 11/04/21 History extended release sertraline 50 mg tablet 50 mg PO DAILYBL 7 Days #7 tab 10/31/21 11/04/21 Rx brexpiprazole 1 mg tablet (Rexulti) 1 mg PO QAM 11/04/21 11/04/21 History linaclotide 72 mcg capsule 72 mcg PO DAILY PRN 11/04/21 11/04/21 History (Linzess) omega 4-twu-izr-fish oil 1,000 mg 1 cap PO HS 11/04/21 11/04/21 History (120 mg-180 mg) capsule (Fish Oil) pantoprazole 40 mg tablet,delayed 40 mg PO BID 11/04/21 11/04/21 History release Past Med/Surg History Medical History Acid reflux disease (~2013) Allergic rhinitis Asthma . Borderline personality disorder . Celiac disease Chronic joint pain Depression Depression with suicidal ideation Diabetic gastroparesis associated with type 1 diabetes mellitus (~2016) DKA (diabetic ketoacidoses) Generalized anxiety disorder Gilbert's syndrome Intentional overdose Irritable bowel syndrome with constipation Lumbar radiculopathy Migraines Osteopenia Osteoporosis Type I diabetes mellitus (~2013) Followed by Endocrinology Surgical History History of cataract surgery bilateral History of colonoscopy History of esophagogastroduodenoscopy (EGD) History of strabismus surgery right Family History Mother Alcohol abuse Adult celiac disease Osteoporosis Seizure Celiac disease Father Skin cancer squamous cell Drug abuse Alcohol abuse Anxiety Seizure Grandfather Alcohol abuse Uncle Drug abuse Alcohol abuse Brother Drug abuse Unknown Cancer Grandmother Diabetes Colorectal cancer Celiac disease Grandmother Type 1 diabetes Other Bipolar 1 disorder No family history of adverse response to anesthesia Denies family history of Ovarian cancer Prostate cancer Myocardial infarction Breast cancer Lung cancer Hypertension Social History Smoking Status: Never smoker Tobacco Type: Cigarettes Age Started Using Tobacco: 18; Age Quit Using Tobacco: 20; Cigarettes Per Day: 1 per month; Second Hand Exposure: Yes; Hx Alcohol Use: No Hx Substance Use: No Preferred Language: Yoruba Communication Ability: Effective Visual Impairment: No Limitations Hearing Ability: Normal Floor Technician Required: No Beliefs That Will Affect Care: None marital status: Single Current Living Situation: Other Current Living Situation Comment: With landlord current occupational status: employed current occupation: [employer] Feels Safe at Home: Yes Childhood Exposure to Second-Hand Smoke: Yes caffeine: Yes Dental Care, Regularly: Yes Physical Activity Frequency: 3-4 Times per Week Physical Activity Frequency Comment: walks Seatbelt Use: always Sunscreen Use: Yes (when in the sun for an extended time) Assistive Devices: Glasses Review of Systems Review of Systems: Gen: Denies fevers, night sweats, rigors, fatigue, malaise, weight loss/gain ENT: Denies congestion, throat pain, hearing loss Eyes: Denies acute visual changes CV: Denies CP, palpitations Pulmonary: Denies SOB, cough, wheezing GI: + Nausea/vomiting Neuro: Denies acute or unilateral weakness, acute gait impairment. + LLAMAS. Musculoskeletal: Denies joint pain, inflammation Endocrine: Denies polydipsia, polyuria Skin: Denies acute rashes or ulcers Physical Exam Physical Exam: General: AAO x 3, no distress ENT: No erythema or exudates, no thrush Eyes: ANNE, EOMI Head and neck: Normocephalic, atraumatic, No JVD, neck is supple. Chest/heart: Nontender, S1,2, RRR, no murmurs, no gallops Lungs: CTAB, no wheezing or crackles Abdomen: Nontender, nondistended, BS+ Neuro: AAO x 3, speech is clear, no unilateral weakness or loss of sensation, coordination intact Musculoskeletal: No joint inflammation, muscle tenderness, FROM Skin: No acute rashes or ulcers Extremities: No clubbing, cyanosis, edema Results & Data Results & Data ([facility]) Vital Signs (Past 12 Hours) Vital Signs Temp Pulse Pulse Resp BP BP Pulse Ox 11/04/21 22:30 100 H 24 88/48 L 100 11/04/21 22:01 95 H 24 82/45 L 97 11/04/21 21:45 94 H 20 90/43 L 96 11/04/21 21:41 96 11/04/21 21:09 97.7 F 91 H 18 93/63 L 98 Code Status & VTE Plan VTE Prophylaxis Plan VTE Prophylaxis will be ordered: Yes PG Care Time/CCT Total # of Minutes Spent Total Time Spent with Patient: Total time spent is greater than 50% in coordination of care (as documented) at patient's floor/unit and/or counseling patient: Coding Level of Care Code 45456 Initial Inpt Care Lvl 3 Medical Decision Making High Complexity Diagnoses DKA (diabetic ketoacidosis) E11.10 Type I diabetes mellitus E10.69 Diabetes mellitus complication status: with other specified complication Celiac disease K90.0 (1) Type I diabetes mellitus Diabetes mellitus complication status: with other specified complication Qualified Code(s): E10.69 - Type 1 diabetes mellitus with other specified complication
[2021-11-05] MEDS ORDERED: STAT IV Infusion **Titration per Protocol STA ×2 (00:12)
[2021-11-05] MEDS ORDERED: ICU PROTOCOL FOR HYPERGLYCEMIA PRN (00:12)
[2021-11-05] MEDS ORDERED: INSULIN REGULAR 250 UNITS in SODIUM CHLORIDE 0.9% 247.5 ML IV SCH (00:12)
[2021-11-05] MEDS ORDERED: hydrOXYzine HCl 25 MG TAB PO PRN (00:12)
[2021-11-05] MEDS ORDERED: DKA GOAL RANGE 150-250 mg/dl ONE (00:12)
[2021-11-05] MEDS ORDERED: linaCLOtide 72 MCG CAPSULE PO PRN (00:40)
[2021-11-05 00:42] LABS: BUN Creatinine Ratio 24.7 (10-20); Calcium 8.5 mg/dl (8.5-10.1); Est GFR (African American) 102.9 ml/min; Est GFR (Non-African American) 88.8 ml/min; Magnesium 1.8 mg/dl (1.7-2.4); Phosphorus 4.3 mg/dl (2.5-4.9); Potassium 5.6 mmol/L (3.5-5.1)
[2021-11-05] MEDS ORDERED: SODIUM CHLOR 0.45% + 20MEQ KCL 20 MEQ/1,000 ML BAG IV SCH (00:45)
[2021-11-05] MEDS ORDERED: SODIUM CHLORIDE 0.45 % 1,000 ML IV SCH (00:45)
[2021-11-05] MEDS ORDERED: PHARMACY GLYCEMIC MGMT CONSULT PRN (00:56)
[2021-11-05] MEDS: ENOXAPARIN INJ 30 MG/0.3 ML SYR SQ SCH ×2 (01:26→21:04)
--- NOTE | 2021-11-05 01:33 | Critical Care Consultation ---
Date of Consultation November 05, 2021 Assessment & Plan (1) DKA (diabetic ketoacidosis): Impression: 26-year-old female with DM type I presents with DKA after insulin pump failure, requiring insulin drip and fluid resuscitation. Neuro - Depressioncontinue sertraline, bupropion Cardiac - Currently hemodynamically stable and normal sinus rhythm on monitor. History of POTS, continue Inderal and sodium tablets. Continuous monitoring on telemetry Respiratory - No tachypnea or respiratory distress. No pulmonary history. Maintaining oxygen saturation on room air. Continuous monitoring pulse ox GI - GERDPPI RENAL/LYTES - Creatinine stable. Monitor every 4 hour BMPs for electrolyte abnormalities, and anion gap High anion gap metabolic acidosis7.17 on VBG. Expect to improve with correction of glucose and fluid resuscitation -Trend every 4 hour B VBG's. No indication for bicarb at this time. Monitor - Strict I's and O's ENDO - DKAsecondary to DM type I (uncontrolled). Reports insulin pump failure at home x2 days -Last hemoglobin A1c 10.5 -Continue with IV fluid resuscitation and insulin drip per DKA protocol in ICU -Transition to sliding scale/basal bolus once appropriate HEME - H&H stable, monitor routine CBCs ID - No indication for infectious process at this time LINES/IV ACCESS - Peripheral IVs DVT PROPHYLAXIS - SCDs, Lovenox I have personally spent 45 minutes of critical care time in the direct management of this patient. This is a life/limb threatening event. This includes time spent evaluating patient, direct bedside care, chart review, placing orders, interpretation of diagnostic studies, discussion with consultants, patient, and family members, as well as other required patient management activities. This time is exclusive of all separately billable procedures, and teaching time and separate from and in addition to any other critical care service time. Thank you for allowing us to participate in the care of this patient. Please refer to my attending physician's documentation for any further recommendations. (2) Type I diabetes mellitus: (3) Depression: Supervising Physician Co-Signing Physician Notes I personally evaluated the patient in the morning. Patient feels improved. No specific complaints, bicarbonate improving acidosis resolving. Anticipate transition off insulin drip today and normalization that the patient would be stable for downgrade out of ICU later today. History of Present Illness Attending Physician: Yousif Moss MD History of Present Illness Patient is a 26-year-old female with past medical history of depression, celiac disease, POTS, and DM type I with recent admission for intentional ASA overdose. Patient states that she started having nausea earlier today and had 2 episodes of vomiting. She took a home ketone test which was positive. She stated that her insulin pump had kinked 2 days ago and failed. She arrived to the emergency department with elevated glucose of 540 and pH of 7.2. She was given 3 L crystalloid bolus and started on insulin drip. On evaluation patient is alert and oriented and does not appear to be in any distress. She denies any dizziness, headache, recent illness or fevers, sore throat, congestion, cough, shortness of breath, chest pain or palpitations, abdominal pain, or diarrhea. She does report general malaise. Patient to be admitted to ICU for further management this time. Allergies Allergy/AdvReac Type Severity Reaction Status Date / Time gluten Allergy Severe CELIAC'S Verified 11/04/21 22:50 DISEASE Penicillins Allergy Severe ANAPHYLAXIS Verified 11/04/21 22:50 shellfish derived Allergy Severe ANAPHYLAXIS Verified 11/04/21 22:50 apple Allergy Intermediate THROAT Verified 11/04/21 22:50 SWELLS house dust Allergy Intermediate Hives Verified 11/04/21 22:50 oxcarbazepine Allergy Intermediate Rash,hives Verified 11/04/21 22:50 and itchiness. lactose AdvReac Intermediate Gatrointestinal Verified 11/04/21 22:50 Upset sumatriptan [From Imitrex] AdvReac Intermediate INTENSIFIES Verified 11/04/21 22:50 HEADACHE Home Medications Medication Instructions Recorded Confirmed Type insulin glargine 100 unit/mL (3 20 units SQ DAILY@16 PRN ml 11/26/18 11/04/21 History mL) subcutaneous pen (Basaglar KwikPen U-100 Insulin) inhalational spacing device #1 ea 03/27/19 11/01/21 Rx (Aerochamber MV) insulin pump controller 12/27/19 11/01/21 History comp.stocking,thigh,short,smal #2 ea 09/21/20 11/01/21 Rx fluticasone propionate 220 220 mcg INHALATION QAM 02/12/21 11/04/21 History mcg/actuation HFA aerosol inhaler (Flovent HFA) propranolol 60 mg capsule,24 60 mg PO HS 02/12/21 11/04/21 History hr,extended release (Inderal LA) trazodone 50 mg tablet 50 mg PO HS 02/12/21 11/04/21 History hydroxyzine HCl 25 mg tablet 25 mg PO DAILY PRN tab 05/12/21 11/04/21 History cholecalciferol (vitamin D3) 50 100 mcg PO DAILY cap 07/04/21 11/04/21 History mcg (2,000 unit) capsule ketorolac 10 mg tablet 10 mg PO Q6H PRN 07/04/21 11/04/21 History onabotulinumtoxinA 200 unit See Rx Instructions IM .COMPLEX #1 07/04/21 11/04/21 Rx solution for injection (Botox) jesus garnett.vits,mathieu,dqo-fksn-wulsz 1 tab PO QAM 07/04/21 11/04/21 History vitamin E (dl, acetate) 45 mg (100 45 mg PO QAM 07/04/21 11/04/21 History unit) capsule sodium chloride 1 gram tablet 1,000 mg PO BID PRN 07/20/21 11/04/21 History acetone (urine) test (Ketostix) #100 ea 08/09/21 11/01/21 Rx glucagon 3 mg/actuation nasal spray 3 mg INTRANASAL PRN #2 ea 08/09/21 11/04/21 Rx insulin syringe-needle U-100 0.3 #100 ea 08/09/21 11/01/21 Rx mL 29 gauge x 1/2" (BD Insulin Syringe) insulin aspart U-100 100 unit/mL 100 unit CONTINUOUS SUBCUTANEOUS 09/08/21 11/04/21 Rx subcutaneous solution INFUSION CONTINOUS 90 Days #90 ml bupropion HCl 150 mg 24 hr tablet, 300 mg PO QAM 10/22/21 11/04/21 History extended release sertraline 50 mg tablet 50 mg PO DAILYBL 7 Days #7 tab 10/31/21 11/04/21 Rx brexpiprazole 1 mg tablet (Rexulti) 1 mg PO QAM 11/04/21 11/04/21 History linaclotide 72 mcg capsule 72 mcg PO DAILY PRN 11/04/21 11/04/21 History (Linzess) omega 5-fne-ykk-fish oil 1,000 mg 1 cap PO HS 11/04/21 11/04/21 History (120 mg-180 mg) capsule (Fish Oil) pantoprazole 40 mg tablet,delayed 40 mg PO BID 11/04/21 11/04/21 History release Patient History Medical History (Updated 11/05/21 @ 10:55 by Ana Villagran MD) Acid reflux disease (~2013) Allergic rhinitis Asthma . Borderline personality disorder . Celiac disease Chronic joint pain Depression Depression with suicidal ideation Diabetic gastroparesis associated with type 1 diabetes mellitus (~2016) DKA (diabetic ketoacidoses) Generalized anxiety disorder Gilbert's syndrome Intentional overdose Irritable bowel syndrome with constipation Lumbar radiculopathy Migraines Osteopenia Osteoporosis POTS (postural orthostatic tachycardia syndrome) Type I diabetes mellitus (~2013) Followed by Endocrinology Surgical History History of cataract surgery bilateral History of colonoscopy History of esophagogastroduodenoscopy (EGD) History of strabismus surgery right Family History Mother Alcohol abuse Adult celiac disease Osteoporosis Seizure Celiac disease Father Skin cancer squamous cell Drug abuse Alcohol abuse Anxiety Seizure Grandfather Alcohol abuse Uncle Drug abuse Alcohol abuse Brother Drug abuse Unknown Cancer Grandmother Diabetes Colorectal cancer Celiac disease Grandmother Type 1 diabetes Other Bipolar 1 disorder No family history of adverse response to anesthesia Denies family history of Ovarian cancer Prostate cancer Myocardial infarction Breast cancer Lung cancer Hypertension Social History Smoking Status: Former smoker Tobacco Type: Cigarettes Age Started Using Tobacco: 18; Age Quit Using Tobacco: 20; Cigarettes Per Day: 1 per month; Second Hand Exposure: Yes; Hx Alcohol Use: No Hx Substance Use: No Preferred Language: Chinese Communication Ability: Effective Visual Impairment: No Limitations Hearing Ability: Normal Equipment Maint Tech Required: No Beliefs That Will Affect Care: None marital status: Single Current Living Situation: Other Current Living Situation Comment: Lives with "Landlord" and "Landlady" current occupational status: employed current occupation: [employer] Feels Safe at Home: Yes Childhood Exposure to Second-Hand Smoke: Yes caffeine: Yes Dental Care, Regularly: Yes Physical Activity Frequency: 3-4 Times per Week Physical Activity Frequency Comment: walks Seatbelt Use: always Sunscreen Use: Yes (when in the sun for an extended time) Assistive Devices: Glasses Review of Systems Review of Systems: All systems reviewed & are unremarkable except as noted in HPI & below Physical Exam Constitutional: cooperative and comfortable Eyes: PERRL, conjunctivae normal, anicteric sclerae ENMT: external ear and nose normal, oropharynx normal Neck: trachea midline, no thyromegaly Respiratory: normal respiratory effort, lungs clear to auscultation Cardiovascular: RRR, no murmur, no edema Heart Sounds: normal S1 and normal S2 Extremities: no edema Gastrointestinal (Abdomen): normal bowel sounds, soft, nontender, no hepatosplenomegaly Musculoskeletal: no cyanosis or clubbing, extremities motor strength 5/5 Skin: no rashes, warm and dry Neurologic: PERRL, EOMI, accommodation nl, no face palsy, no dysarthria Psychiatric: A+Ox3, euthymic affect Results & Data Results & Data ([facility]) Vital Signs (Past 12 Hours) Vital Signs Temp Pulse Pulse Resp BP BP Pulse Ox 11/05/21 00:50 90 15 99 11/05/21 00:40 91 H 21 99 11/05/21 00:30 98 H 16 100 11/05/21 00:20 94 H 25 H 98 11/05/21 00:13 36.7 C 97 H 16 102/50 L 98 11/05/21 00:12 36.9 C 11/05/21 00:10 105 H 24 97 11/05/21 00:00 93 H 25 H 102/50 L 99 11/04/21 23:56 98 H 20 104/49 L 99 11/04/21 23:43 96 H 20 99/52 L 99 11/04/21 22:30 100 H 24 88/48 L 100 11/04/21 22:01 95 H 24 82/45 L 97 11/04/21 21:45 94 H 20 90/43 L 96 11/04/21 21:41 96 11/04/21 21:09 36.5 C 91 H 18 93/63 L 98 Coding Level of Care Code Critical Care 1st 30-74 mins Diagnoses DKA (diabetic ketoacidosis) E11.10 Type I diabetes mellitus E10.69 Diabetes mellitus complication status: with other specified complication Depression F32.9 (1) Type I diabetes mellitus Diabetes mellitus complication status: with other specified complication Qualified Code(s): E10.69 - Type 1 diabetes mellitus with other specified complication
[2021-11-05] MEDS ORDERED: D5W AND 1/2NSS 1,000 ML IV SCH (04:15)
[2021-11-05 04:56] LABS: BUN Creatinine Ratio 32.1 (10-20); Calcium 8.3 mg/dl (8.5-10.1); Creatinine Clr Calc Pharmacy 130.3 ml/min; Est GFR (African American) 148.1 ml/min; Est GFR (Non-African American) 127.8 ml/min; Magnesium 1.6 mg/dl (1.7-2.4); Phosphorus 3.5 mg/dl (2.5-4.9); Potassium 4.3 mmol/L (3.5-5.1)
[2021-11-05] MEDS: D5W AND 1/2NSS + 20MEQ KCL 20 MEQ/1,000 ML BAG IV SCH ×2 (06:04→11:04)
[2021-11-05] MEDS: MAGNESIUM SULFATE / D5W 1 GM/100 ML BAG IV SCH ×3 (06:04→09:53)
[2021-11-05] MEDS ORDERED: INSULIN ASPART PER UNIT SC SCH (07:30)
[2021-11-05] MEDS: INSULIN ASPART PER UNIT SC SCH ×5 (09:02→21:14)
[2021-11-05 09:28] LABS: BUN Creatinine Ratio 17.5 (10-20); Calcium 8.1 mg/dl (8.5-10.1); Creatinine Clr Calc Pharmacy 91.2 ml/min; Est GFR (African American) 117.1 ml/min; Magnesium 2.1 mg/dl (1.7-2.4); Phosphorus 2.7 mg/dl (2.5-4.9); Potassium 4.3 mmol/L (3.5-5.1)
[2021-11-05] MEDS: buPROPion XL 300 MG TABCR PO SCH (09:30)
[2021-11-05] MEDS: CHOLECALCIFEROL 1,000 UNITS 25 MCG TAB PO SCH (09:30)
[2021-11-05] MEDS: FLUTICASONE FUROATE 100MCG 14 PUFFS/INHALER INH SCH (09:31)
[2021-11-05] MEDS: PRENATAL VITAMIN 1 TAB PO SCH (09:31)
[2021-11-05] MEDS: PANTOprazole 40 MG TAB PO SCH ×2 (09:31→21:05)
--- NOTE | 2021-11-05 09:57 | Pharmacy Report ---
Pharmacy Glycemic Short Note 2 - Date of Service November 05, 2021 - Glycemic Short BSG Results (Last 24 hours): 11/04/21 11/04/21 11/04/21 21:12 21:31 22:33 Glucose 539 H* POC Glucose 494 H* 426 H* 11/04/21 11/04/21 11/05/21 22:34 23:33 00:05 Glucose 454 H* POC Glucose 438 H* 416 H* 11/05/21 11/05/21 11/05/21 01:19 02:42 03:43 Glucose POC Glucose 327 H* 254 H 229 H 11/05/21 11/05/21 11/05/21 04:24 05:06 06:11 Glucose 223 H POC Glucose 247 H 250 H 11/05/21 11/05/21 11/05/21 08:14 08:45 09:04 Glucose 283 H POC Glucose 254 H 254 H OUTPATIENT ANTIDIABETIC REGIMEN: * Novolog pump ASSESSMENT: * 26 year old admitted with DKA due to insulin pump failure. Recently admitted for intentional ASA overdose. Started on insulin infusion per DKA protocol. * Insulin drip running at 3.8 units/hr this morning - repeat labs improving more. Anion gap closed, PH >7.3, bicarb >15 meq/L. Reasonable to give a dose of basal insulin this morning * Patient known to us from other admissions for glycemic management. Patient controlled on last admission with Lantus 20 units daily, will give dose now. Patient receiving additional dextrose fluids, will discuss with provider plan PLAN FOR INPATIENT GLYCEMIC CONTROL: * Hold outpatient oral diabetes medications * Basal insulin * Lantus 20 units x 1 - overlap with insulin drip * Bolus insulin * follow insulin infusion calculator
[2021-11-05] MEDS ORDERED: LANTUS PER UNIT CHARGE SQ ONE (10:00)
--- NOTE | 2021-11-05 10:55 | Hospitalist Progress Note ---
Date of Service November 05, 2021 Assessment & Plan (1) DKA (diabetic ketoacidosis): Plan: 26 y/o F Hx depression, POTS, celiac, DM I. Recent admission for intentional ASA OD. Multiple DKA admissions. Presents with nausea, vomiting and LLAMAS. She recognized this as DKA and reports that her insulin pump had failed. DKA was confirmed on arrival to the ER with a glucose of 540 and a PH of 7.2. There is no evidence of infection and she states that her systolic pressure is typically in the 80s due to taking propranolol for POTS DKA - ICU protocol - insulin GTT, IVF, serial lytes, VBG. Now improving. Anion gap is closed and she has been weaned off insulin drip and on basal and bolus insulin. Electrolytes replaced today to include potassium and phosphorus and magnesium. Plan to transition back to insulin pump prior to discharge- has all the supplies with her. Follow-up with endocrinology as an outpatient Her hemoglobin A1c is 10.1 in 08/2021-uncontrolled Can transition out of the ICU -Continue to follow BMP, VBG, mag, Phos but can change to once daily -Appreciate pharmacy glycemic management -Discontinue IV fluids as she is now tolerating p.o. later in the day (2) Type I diabetes mellitus: Plan: As above (3) Depression: Plan: Controlled. With a recent admission for suicide attempt with aspirin overdose She denies SI/HI and follows with psychiatry at [facility] cont sertraline, bupropion, trazodone, hydroxyzine She needs to bring in her home Rexulti (4) POTS (postural orthostatic tachycardia syndrome): Plan: With soft blood pressures in the 80s systolic, mild tachycardia She did not get her propranolol last night She reports that immediate release propranolol has too rapid of an onset of action and causes her more lightheadedness even at lower doses Continue propranolol 60 mg at bedtime and change hold parameters to only hold for SBP less than 90 -Add NIEVES borges -Give scheduled dose of sodium chloride 1000 mg p.o. daily in the morning, first dose now-at home, she tries to take it as needed but by the time she has symptoms of lightheadedness, it is too late (5) Acid reflux disease: Plan: Continue Protonix 40 Mg p.o. twice daily (6) Celiac disease: Plan: Needs gluten-free diet Plan: DVT prophylaxis-add NIEVES hose for POTS, Lovenox Disposition-continued stay but can downgrade out of ICU to PCU. Will likely be able to discharge to home tomorrow Admission and Anticipated Discharge Date Admission Date: November 04, 2021 Subjective Patient reports feeling little bit better. Still some mild nausea and does not feel like eating much just yet. Denies headaches or fever, no chest pain or shortness of breath, no abdominal pain. Reports that her mood is fine and she denies any SI/HI. She reports her blood pressures are always low due to her propranolol but she has tried immediate release 20 mg dose before and it made her feel lightheaded- the slow release is better tolerated. She also has compression stockings but does not wear them. Review of Systems Review of Systems: All systems reviewed & are unremarkable except as noted in HPI & below Physical Exam Constitutional: WD/WN, vitals as above Eyes: + anicteric sclerae ENMT: external ear and nose normal, oropharynx normal Neck: trachea midline, no thyromegaly Respiratory: normal respiratory effort, lungs clear to auscultation Cardiovascular: RRR, no murmur, no edema Chest (Breasts): Chest: normal inspection of chest Gastrointestinal (Abdomen): normal bowel sounds, soft, nontender, no hepatosplenomegaly Musculoskeletal: Extremities: extremities normal to inspection; no cyanosis and no clubbing Skin: no rashes, warm and dry Neurologic: moves all extremities and awake; no focal motor deficits Psychiatric: A+Ox3, euthymic affect Lymphatic: no lymphedema Results & Data Results & Data ([facility]) Vital Signs (Past 12 Hours) Vital Signs Temp Pulse Pulse Resp BP BP Pulse Ox 11/05/21 10:15 90 22 87/54 L 97 11/05/21 10:00 88 15 85/54 L 97 11/05/21 09:45 91 H 24 85/44 L 97 11/05/21 09:30 94 H 14 88/47 L 96 11/05/21 09:15 87 23 90/55 L 94 11/05/21 09:00 88 21 86/51 L 95 11/05/21 08:45 101 H 22 85/51 L 97 11/05/21 08:30 91 H 16 81/53 L 94 11/05/21 08:15 93 H 17 91/46 L 96 11/05/21 08:07 97 H 20 86/47 L 97 11/05/21 08:00 86 20 76/38 L 95 11/05/21 07:00 96 H 15 83/37 L 96 11/05/21 04:24 36.9 C 11/05/21 04:20 93 H 15 96 11/05/21 04:10 96 H 26 H 96 11/05/21 04:00 101 H 28 H 103/52 L 96 11/05/21 03:53 97 H 24 11/05/21 03:40 95 H 24 96 11/05/21 03:30 87 22 96 11/05/21 03:20 90 22 95 11/05/21 03:10 88 23 95 11/05/21 03:00 90 19 89/46 L 95 11/05/21 02:50 92 H 23 96 11/05/21 02:40 91 H 25 H 95 11/05/21 02:30 87 18 96 11/05/21 02:20 90 22 96 11/05/21 02:10 88 24 96 11/05/21 02:00 90 19 89/46 L 96 11/05/21 01:50 88 21 96 11/05/21 01:40 88 32 H 97 11/05/21 01:30 86 28 H 97 11/05/21 01:20 87 23 98 11/05/21 01:10 97 H 21 98 11/05/21 01:00 88 25 H 90/54 L 98 11/05/21 00:50 90 15 99 11/05/21 00:40 91 H 21 99 11/05/21 00:30 98 H 16 100 11/05/21 00:20 94 H 25 H 98 11/05/21 00:13 36.7 C 97 H 16 102/50 L 98 11/05/21 00:12 36.9 C 96 H 11/05/21 00:10 105 H 24 97 11/05/21 00:00 93 H 25 H 102/50 L 99 11/04/21 23:56 98 H 20 104/49 L 99 11/04/21 23:43 96 H 20 99/52 L 99 Laboratory Results 11/05/21 11/05/21 11/05/21 Range/Units Unknown 10:03 09:04 WBC (4.8-10.8) K/uL RBC (4.2-5.4) M/uL Hgb (12.0-16.0) g/dL Hct (37-47) % MCV (80-100) fL MCH (25-34) pg MCHC (32-36) g/dL RDW Std Deviation (36.4-46.3) fL RDW Coeff of Keanu (11.5-14.5) % Plt Count (130-400) K/uL MPV (7.4-10.4) fL Immature Gran % (Auto) % Neut % (Auto) % Lymph % (Auto) % [place] % (Auto) % Eos % (Auto) % Baso % (Auto) % Neut # (Auto) (1.4-6.5) K/uL Lymph # (Auto) (1.2-3.4) K/uL [place] # (Auto) (0.11-0.59) K/uL Eos # (Auto) (0-0.5) K/uL Baso # (Auto) (0-0.2) K/uL Immature Gran # (Auto) (0.00-0.02) K/uL PT (9.0-12.0) Seconds INR (0.9-1.1) APTT (21.0-31.0) Seconds PTT Ratio VBG pH (7.36-7.41) VBG pCO2 (38-50) mmHg VBG pO2 mmHg VBG HCO3 mmol/L VBG O2 Saturation % VBG Base Excess mEq/L Sodium (136-145) mmol/L Potassium (3.5-5.1) mmol/L Chloride (98-107) mmol/L Carbon Dioxide (21-32) mmol/L Anion Gap (3-11) BUN (6-23) mg/dl Creatinine (0.6-1.2) mg/dl Est Cr Clr Drug Dosing ml/min Est GFR ( Amer) ml/min Est GFR (Non-Af Amer) ml/min BUN/Creatinine Ratio (10-20) Glucose (70-99(Fasting)) mg/dl POC Glucose 251 H 254 H (70-99) mg/dl Lactate (0.4-2.0) mmol/L Calcium (8.5-10.1) mg/dl Phosphorus (2.5-4.9) mg/dl Magnesium (1.7-2.4) mg/dl Total Bilirubin (0.2-1.0) mg/dl AST (13-39) U/L ALT (7-52) U/L Alkaline Phosphatase (34-104) U/L Total Protein (6.0-8.3) gm/dl Albumin (3.4-5.0) gm/dl Globulin (2.5-4.0) gm/dl Albumin/Globulin Ratio (0.9-2) HCG, Qual (Negative) Urine Color Urine Appearance (Clear) Urine pH (4.5-7.5) Ur Specific [place] (1.000-1.030) Urine Protein (Negative) Urine Glucose (UA) (Negative) Urine Ketones (Negative) Urine Blood (Negative) Urine Nitrite (Negative) Urine Bilirubin (Negative) Urine Urobilinogen (Negative) Ur Leukocyte Esterase (Negative) Urine WBC (Auto) (0-5) /hpf Urine RBC (Auto) (0-4) /hpf U Hyaline Cast (Auto) (0-5) /lpf U Epithel Cells (Auto) (0-5) /lpf Urine Bacteria (Auto) (Negative) Nasal Screen MRSA (PCR) Negative (Negative) SARS-CoV-2, RNA, NAAT (NEGATIVE) 11/05/21 11/05/21 11/05/21 Range/Units 08:45 08:45 08:14 WBC (4.8-10.8) K/uL RBC (4.2-5.4) M/uL Hgb (12.0-16.0) g/dL Hct (37-47) % MCV (80-100) fL MCH (25-34) pg MCHC (32-36) g/dL RDW Std Deviation (36.4-46.3) fL RDW Coeff of Keanu (11.5-14.5) % Plt Count (130-400) K/uL MPV (7.4-10.4) fL Immature Gran % (Auto) % Neut % (Auto) % Lymph % (Auto) % [place] % (Auto) % Eos % (Auto) % Baso % (Auto) % Neut # (Auto) (1.4-6.5) K/uL Lymph # (Auto) (1.2-3.4) K/uL [place] # (Auto) (0.11-0.59) K/uL Eos # (Auto) (0-0.5) K/uL Baso # (Auto) (0-0.2) K/uL Immature Gran # (Auto) (0.00-0.02) K/uL PT (9.0-12.0) Seconds INR (0.9-1.1) APTT (21.0-31.0) Seconds PTT Ratio VBG pH 7.33 L (7.36-7.41) VBG pCO2 (38-50) mmHg VBG pO2 mmHg VBG HCO3 mmol/L VBG O2 Saturation % VBG Base Excess mEq/L Sodium 132 L (136-145) mmol/L Potassium 4.3 (3.5-5.1) mmol/L Chloride 108 H (98-107) mmol/L Carbon Dioxide 19 L (21-32) mmol/L Anion Gap 5 (3-11) BUN 14 (6-23) mg/dl Creatinine 0.80 (0.6-1.2) mg/dl Est Cr Clr Drug Dosing 91.2 ml/min Est GFR ( Amer) 117.1 ml/min Est GFR (Non-Af Amer) 101.0 ml/min BUN/Creatinine Ratio 17.5 (10-20) Glucose 283 H (70-99(Fasting)) mg/dl POC Glucose 254 H (70-99) mg/dl Lactate (0.4-2.0) mmol/L Calcium 8.1 L (8.5-10.1) mg/dl Phosphorus 2.7 (2.5-4.9) mg/dl Magnesium 2.1 (1.7-2.4) mg/dl Total Bilirubin (0.2-1.0) mg/dl AST (13-39) U/L ALT (7-52) U/L Alkaline Phosphatase (34-104) U/L Total Protein (6.0-8.3) gm/dl Albumin (3.4-5.0) gm/dl Globulin (2.5-4.0) gm/dl Albumin/Globulin Ratio (0.9-2) HCG, Qual (Negative) Urine Color Urine Appearance (Clear) Urine pH (4.5-7.5) Ur Specific [place] (1.000-1.030) Urine Protein (Negative) Urine Glucose (UA) (Negative) Urine Ketones (Negative) Urine Blood (Negative) Urine Nitrite (Negative) Urine Bilirubin (Negative) Urine Urobilinogen (Negative) Ur Leukocyte Esterase (Negative) Urine WBC (Auto) (0-5) /hpf Urine RBC (Auto) (0-4) /hpf U Hyaline Cast (Auto) (0-5) /lpf U Epithel Cells (Auto) (0-5) /lpf Urine Bacteria (Auto) (Negative) Nasal Screen MRSA (PCR) (Negative) SARS-CoV-2, RNA, NAAT (NEGATIVE) 11/05/21 11/05/21 11/05/21 Range/Units 06:11 05:06 04:24 WBC (4.8-10.8) K/uL RBC (4.2-5.4) M/uL Hgb (12.0-16.0) g/dL Hct (37-47) % MCV (80-100) fL MCH (25-34) pg MCHC (32-36) g/dL RDW Std Deviation (36.4-46.3) fL RDW Coeff of Keanu (11.5-14.5) % Plt Count (130-400) K/uL MPV (7.4-10.4) fL Immature Gran % (Auto) % Neut % (Auto) % Lymph % (Auto) % [place] % (Auto) % Eos % (Auto) % Baso % (Auto) % Neut # (Auto) (1.4-6.5) K/uL Lymph # (Auto) (1.2-3.4) K/uL [place] # (Auto) (0.11-0.59) K/uL Eos # (Auto) (0-0.5) K/uL Baso # (Auto) (0-0.2) K/uL Immature Gran # (Auto) (0.00-0.02) K/uL PT (9.0-12.0) Seconds INR (0.9-1.1) APTT (21.0-31.0) Seconds PTT Ratio VBG pH 7.27 L (7.36-7.41) VBG pCO2 (38-50) mmHg VBG pO2 mmHg VBG HCO3 mmol/L VBG O2 Saturation % VBG Base Excess mEq/L Sodium (136-145) mmol/L Potassium (3.5-5.1) mmol/L Chloride (98-107) mmol/L Carbon Dioxide (21-32) mmol/L Anion Gap (3-11) BUN (6-23) mg/dl Creatinine (0.6-1.2) mg/dl Est Cr Clr Drug Dosing ml/min Est GFR ( Amer) ml/min Est GFR (Non-Af Amer) ml/min BUN/Creatinine Ratio (10-20) Glucose (70-99(Fasting)) mg/dl POC Glucose 250 H 247 H (70-99) mg/dl Lactate (0.4-2.0) mmol/L Calcium (8.5-10.1) mg/dl Phosphorus (2.5-4.9) mg/dl Magnesium (1.7-2.4) mg/dl Total Bilirubin (0.2-1.0) mg/dl AST (13-39) U/L ALT (7-52) U/L Alkaline Phosphatase (34-104) U/L Total Protein (6.0-8.3) gm/dl Albumin (3.4-5.0) gm/dl Globulin (2.5-4.0) gm/dl Albumin/Globulin Ratio (0.9-2) HCG, Qual (Negative) Urine Color Urine Appearance (Clear) Urine pH (4.5-7.5) Ur Specific [place] (1.000-1.030) Urine Protein (Negative) Urine Glucose (UA) (Negative) Urine Ketones (Negative) Urine Blood (Negative) Urine Nitrite (Negative) Urine Bilirubin (Negative) Urine Urobilinogen (Negative) Ur Leukocyte Esterase (Negative) Urine WBC (Auto) (0-5) /hpf Urine RBC (Auto) (0-4) /hpf U Hyaline Cast (Auto) (0-5) /lpf U Epithel Cells (Auto) (0-5) /lpf Urine Bacteria (Auto) (Negative) Nasal Screen MRSA (PCR) (Negative) SARS-CoV-2, RNA, NAAT (NEGATIVE) 11/05/21 11/05/21 11/05/21 Range/Units 04:24 03:43 02:42 WBC (4.8-10.8) K/uL RBC (4.2-5.4) M/uL Hgb (12.0-16.0) g/dL Hct (37-47) % MCV (80-100) fL MCH (25-34) pg MCHC (32-36) g/dL RDW Std Deviation (36.4-46.3) fL RDW Coeff of Keanu (11.5-14.5) % Plt Count (130-400) K/uL MPV (7.4-10.4) fL Immature Gran % (Auto) % Neut % (Auto) % Lymph % (Auto) % [place] % (Auto) % Eos % (Auto) % Baso % (Auto) % Neut # (Auto) (1.4-6.5) K/uL Lymph # (Auto) (1.2-3.4) K/uL [place] # (Auto) (0.11-0.59) K/uL Eos # (Auto) (0-0.5) K/uL Baso # (Auto) (0-0.2) K/uL Immature Gran # (Auto) (0.00-0.02) K/uL PT (9.0-12.0) Seconds INR (0.9-1.1) APTT (21.0-31.0) Seconds PTT Ratio VBG pH (7.36-7.41) VBG pCO2 (38-50) mmHg VBG pO2 mmHg VBG HCO3 mmol/L VBG O2 Saturation % VBG Base Excess mEq/L Sodium 132 L (136-145) mmol/L Potassium 4.3 D (3.5-5.1) mmol/L Chloride 108 H (98-107) mmol/L Carbon Dioxide 14 L (21-32) mmol/L Anion Gap 10 (3-11) BUN 18 (6-23) mg/dl Creatinine 0.56 L D (0.6-1.2) mg/dl Est Cr Clr Drug Dosing 130.3 ml/min Est GFR ( Amer) 148.1 ml/min Est GFR (Non-Af Amer) 127.8 ml/min BUN/Creatinine Ratio 32.1 H (10-20) Glucose 223 H (70-99(Fasting)) mg/dl POC Glucose 229 H 254 H (70-99) mg/dl Lactate (0.4-2.0) mmol/L Calcium 8.3 L (8.5-10.1) mg/dl Phosphorus 3.5 (2.5-4.9) mg/dl Magnesium 1.6 L (1.7-2.4) mg/dl Total Bilirubin (0.2-1.0) mg/dl AST (13-39) U/L ALT (7-52) U/L Alkaline Phosphatase (34-104) U/L Total Protein (6.0-8.3) gm/dl Albumin (3.4-5.0) gm/dl Globulin (2.5-4.0) gm/dl Albumin/Globulin Ratio (0.9-2) HCG, Qual (Negative) Urine Color Urine Appearance (Clear) Urine pH (4.5-7.5) Ur Specific [place] (1.000-1.030) Urine Protein (Negative) Urine Glucose (UA) (Negative) Urine Ketones (Negative) Urine Blood (Negative) Urine Nitrite (Negative) Urine Bilirubin (Negative) Urine Urobilinogen (Negative) Ur Leukocyte Esterase (Negative) Urine WBC (Auto) (0-5) /hpf Urine RBC (Auto) (0-4) /hpf U Hyaline Cast (Auto) (0-5) /lpf U Epithel Cells (Auto) (0-5) /lpf Urine Bacteria (Auto) (Negative) Nasal Screen MRSA (PCR) (Negative) SARS-CoV-2, RNA, NAAT (NEGATIVE) 11/05/21 11/05/21 11/04/21 Range/Units 01:19 00:05 23:33 WBC (4.8-10.8) K/uL RBC (4.2-5.4) M/uL Hgb (12.0-16.0) g/dL Hct (37-47) % MCV (80-100) fL MCH (25-34) pg MCHC (32-36) g/dL RDW Std Deviation (36.4-46.3) fL RDW Coeff of Keanu (11.5-14.5) % Plt Count (130-400) K/uL MPV (7.4-10.4) fL Immature Gran % (Auto) % Neut % (Auto) % Lymph % (Auto) % [place] % (Auto) % Eos % (Auto) % Baso % (Auto) % Neut # (Auto) (1.4-6.5) K/uL Lymph # (Auto) (1.2-3.4) K/uL [place] # (Auto) (0.11-0.59) K/uL Eos # (Auto) (0-0.5) K/uL Baso # (Auto) (0-0.2) K/uL Immature Gran # (Auto) (0.00-0.02) K/uL PT (9.0-12.0) Seconds INR (0.9-1.1) APTT (21.0-31.0) Seconds PTT Ratio VBG pH (7.36-7.41) VBG pCO2 (38-50) mmHg VBG pO2 mmHg VBG HCO3 mmol/L VBG O2 Saturation % VBG Base Excess mEq/L Sodium (136-145) mmol/L Potassium (3.5-5.1) mmol/L Chloride (98-107) mmol/L Carbon Dioxide (21-32) mmol/L Anion Gap (3-11) BUN (6-23) mg/dl Creatinine (0.6-1.2) mg/dl Est Cr Clr Drug Dosing ml/min Est GFR ( Amer) ml/min Est GFR (Non-Af Amer) ml/min BUN/Creatinine Ratio (10-20) Glucose (70-99(Fasting)) mg/dl POC Glucose 327 H* 416 H* (70-99) mg/dl Lactate 1.3 (0.4-2.0) mmol/L Calcium (8.5-10.1) mg/dl Phosphorus (2.5-4.9) mg/dl Magnesium (1.7-2.4) mg/dl Total Bilirubin (0.2-1.0) mg/dl AST (13-39) U/L ALT (7-52) U/L Alkaline Phosphatase (34-104) U/L Total Protein (6.0-8.3) gm/dl Albumin (3.4-5.0) gm/dl Globulin (2.5-4.0) gm/dl Albumin/Globulin Ratio (0.9-2) HCG, Qual (Negative) Urine Color Urine Appearance (Clear) Urine pH (4.5-7.5) Ur Specific [place] (1.000-1.030) Urine Protein (Negative) Urine Glucose (UA) (Negative) Urine Ketones (Negative) Urine Blood (Negative) Urine Nitrite (Negative) Urine Bilirubin (Negative) Urine Urobilinogen (Negative) Ur Leukocyte Esterase (Negative) Urine WBC (Auto) (0-5) /hpf Urine RBC (Auto) (0-4) /hpf U Hyaline Cast (Auto) (0-5) /lpf U Epithel Cells (Auto) (0-5) /lpf Urine Bacteria (Auto) (Negative) Nasal Screen MRSA (PCR) (Negative) SARS-CoV-2, RNA, NAAT (NEGATIVE) 11/04/21 11/04/21 11/04/21 Range/Units 23:33 23:33 22:40 WBC (4.8-10.8) K/uL RBC (4.2-5.4) M/uL Hgb (12.0-16.0) g/dL Hct (37-47) % MCV (80-100) fL MCH (25-34) pg MCHC (32-36) g/dL RDW Std Deviation (36.4-46.3) fL RDW Coeff of Keanu (11.5-14.5) % Plt Count (130-400) K/uL MPV (7.4-10.4) fL Immature Gran % (Auto) % Neut % (Auto) % Lymph % (Auto) % [place] % (Auto) % Eos % (Auto) % Baso % (Auto) % Neut # (Auto) (1.4-6.5) K/uL Lymph # (Auto) (1.2-3.4) K/uL [place] # (Auto) (0.11-0.59) K/uL Eos # (Auto) (0-0.5) K/uL Baso # (Auto) (0-0.2) K/uL Immature Gran # (Auto) (0.00-0.02) K/uL PT (9.0-12.0) Seconds INR (0.9-1.1) APTT (21.0-31.0) Seconds PTT Ratio VBG pH 7.17 L (7.36-7.41) VBG pCO2 (38-50) mmHg VBG pO2 mmHg VBG HCO3 mmol/L VBG O2 Saturation % VBG Base Excess mEq/L Sodium 131 L (136-145) mmol/L Potassium 5.6 H (3.5-5.1) mmol/L Chloride 103 (98-107) mmol/L Carbon Dioxide 12 L (21-32) mmol/L Anion Gap 16 H (3-11) BUN 22 (6-23) mg/dl Creatinine 0.89 (0.6-1.2) mg/dl Est Cr Clr Drug Dosing 82.0 ml/min Est GFR ( Amer) 102.9 ml/min Est GFR (Non-Af Amer) 88.8 ml/min BUN/Creatinine Ratio 24.7 H (10-20) Glucose 454 H* (70-99(Fasting)) mg/dl POC Glucose (70-99) mg/dl Lactate (0.4-2.0) mmol/L Calcium 8.5 (8.5-10.1) mg/dl Phosphorus 4.3 (2.5-4.9) mg/dl Magnesium 1.8 (1.7-2.4) mg/dl Total Bilirubin (0.2-1.0) mg/dl AST (13-39) U/L ALT (7-52) U/L Alkaline Phosphatase (34-104) U/L Total Protein (6.0-8.3) gm/dl Albumin (3.4-5.0) gm/dl Globulin (2.5-4.0) gm/dl Albumin/Globulin Ratio (0.9-2) HCG, Qual (Negative) Urine Color Yellow Urine Appearance Clear (Clear) Urine pH 5.0 (4.5-7.5) Ur Specific [place] 1.024 (1.000-1.030) Urine Protein Negative (Negative) Urine Glucose (UA) 3+ H (Negative) Urine Ketones 4+ H (Negative) Urine Blood Negative (Negative) Urine Nitrite Negative (Negative) Urine Bilirubin Negative (Negative) Urine Urobilinogen Negative (Negative) Ur Leukocyte Esterase 1+ H (Negative) Urine WBC (Auto) 10-30 H (0-5) /hpf Urine RBC (Auto) 5-10 H (0-4) /hpf U Hyaline Cast (Auto) 1-5 (0-5) /lpf U Epithel Cells (Auto) >30 H (0-5) /lpf Urine Bacteria (Auto) 2+ H (Negative) Nasal Screen MRSA (PCR) (Negative) SARS-CoV-2, RNA, NAAT (NEGATIVE) 11/04/21 11/04/21 11/04/21 Range/Units 22:34 22:33 21:42 WBC (4.8-10.8) K/uL RBC (4.2-5.4) M/uL Hgb (12.0-16.0) g/dL Hct (37-47) % MCV (80-100) fL MCH (25-34) pg MCHC (32-36) g/dL RDW Std Deviation (36.4-46.3) fL RDW Coeff of Keanu (11.5-14.5) % Plt Count (130-400) K/uL MPV (7.4-10.4) fL Immature Gran % (Auto) % Neut % (Auto) % Lymph % (Auto) % [place] % (Auto) % Eos % (Auto) % Baso % (Auto) % Neut # (Auto) (1.4-6.5) K/uL Lymph # (Auto) (1.2-3.4) K/uL [place] # (Auto) (0.11-0.59) K/uL Eos # (Auto) (0-0.5) K/uL Baso # (Auto) (0-0.2) K/uL Immature Gran # (Auto) (0.00-0.02) K/uL PT (9.0-12.0) Seconds INR (0.9-1.1) APTT (21.0-31.0) Seconds PTT Ratio VBG pH 7.22 L (7.36-7.41) VBG pCO2 35 L (38-50) mmHg VBG pO2 22 mmHg VBG HCO3 14 mmol/L VBG O2 Saturation < 60.0 % VBG Base Excess -12.5 mEq/L Sodium (136-145) mmol/L Potassium (3.5-5.1) mmol/L Chloride (98-107) mmol/L Carbon Dioxide (21-32) mmol/L Anion Gap (3-11) BUN (6-23) mg/dl Creatinine (0.6-1.2) mg/dl Est Cr Clr Drug Dosing ml/min Est GFR ( Amer) ml/min Est GFR (Non-Af Amer) ml/min BUN/Creatinine Ratio (10-20) Glucose (70-99(Fasting)) mg/dl POC Glucose 438 H* 426 H* (70-99) mg/dl Lactate (0.4-2.0) mmol/L Calcium (8.5-10.1) mg/dl Phosphorus (2.5-4.9) mg/dl Magnesium (1.7-2.4) mg/dl Total Bilirubin (0.2-1.0) mg/dl AST (13-39) U/L ALT (7-52) U/L Alkaline Phosphatase (34-104) U/L Total Protein (6.0-8.3) gm/dl Albumin (3.4-5.0) gm/dl Globulin (2.5-4.0) gm/dl Albumin/Globulin Ratio (0.9-2) HCG, Qual (Negative) Urine Color Urine Appearance (Clear) Urine pH (4.5-7.5) Ur Specific [place] (1.000-1.030) Urine Protein (Negative) Urine Glucose (UA) (Negative) Urine Ketones (Negative) Urine Blood (Negative) Urine Nitrite (Negative) Urine Bilirubin (Negative) Urine Urobilinogen (Negative) Ur Leukocyte Esterase (Negative) Urine WBC (Auto) (0-5) /hpf Urine RBC (Auto) (0-4) /hpf U Hyaline Cast (Auto) (0-5) /lpf U Epithel Cells (Auto) (0-5) /lpf Urine Bacteria (Auto) (Negative) Nasal Screen MRSA (PCR) (Negative) SARS-CoV-2, RNA, NAAT (NEGATIVE) 11/04/21 11/04/21 11/04/21 Range/Units 21:35 21:31 21:31 WBC (4.8-10.8) K/uL RBC (4.2-5.4) M/uL Hgb (12.0-16.0) g/dL Hct (37-47) % MCV (80-100) fL MCH (25-34) pg MCHC (32-36) g/dL RDW Std Deviation (36.4-46.3) fL RDW Coeff of Keanu (11.5-14.5) % Plt Count (130-400) K/uL MPV (7.4-10.4) fL Immature Gran % (Auto) % Neut % (Auto) % Lymph % (Auto) % [place] % (Auto) % Eos % (Auto) % Baso % (Auto) % Neut # (Auto) (1.4-6.5) K/uL Lymph # (Auto) (1.2-3.4) K/uL [place] # (Auto) (0.11-0.59) K/uL Eos # (Auto) (0-0.5) K/uL Baso # (Auto) (0-0.2) K/uL Immature Gran # (Auto) (0.00-0.02) K/uL PT (9.0-12.0) Seconds INR (0.9-1.1) APTT (21.0-31.0) Seconds PTT Ratio VBG pH (7.36-7.41) VBG pCO2 (38-50) mmHg VBG pO2 mmHg VBG HCO3 mmol/L VBG O2 Saturation % VBG Base Excess mEq/L Sodium 129 L (136-145) mmol/L Potassium 5.0 (3.5-5.1) mmol/L Chloride 95 L (98-107) mmol/L Carbon Dioxide 15 L (21-32) mmol/L Anion Gap 19 H (3-11) BUN 23 (6-23) mg/dl Creatinine 1.01 (0.6-1.2) mg/dl Est Cr Clr Drug Dosing 72.2 ml/min Est GFR ( Amer) 88.3 ml/min Est GFR (Non-Af Amer) 76.2 ml/min BUN/Creatinine Ratio 22.8 H (10-20) Glucose 539 H* (70-99(Fasting)) mg/dl POC Glucose (70-99) mg/dl Lactate (0.4-2.0) mmol/L Calcium 9.6 (8.5-10.1) mg/dl Phosphorus (2.5-4.9) mg/dl Magnesium 1.8 (1.7-2.4) mg/dl Total Bilirubin 2.4 H (0.2-1.0) mg/dl AST 15 (13-39) U/L ALT 14 (7-52) U/L Alkaline Phosphatase 60 (34-104) U/L Total Protein 8.1 (6.0-8.3) gm/dl Albumin 4.7 (3.4-5.0) gm/dl Globulin 3.4 (2.5-4.0) gm/dl Albumin/Globulin Ratio 1.4 (0.9-2) HCG, Qual Negative (Negative) Urine Color Urine Appearance (Clear) Urine pH (4.5-7.5) Ur Specific [place] (1.000-1.030) Urine Protein (Negative) Urine Glucose (UA) (Negative) Urine Ketones (Negative) Urine Blood (Negative) Urine Nitrite (Negative) Urine Bilirubin (Negative) Urine Urobilinogen (Negative) Ur Leukocyte Esterase (Negative) Urine WBC (Auto) (0-5) /hpf Urine RBC (Auto) (0-4) /hpf U Hyaline Cast (Auto) (0-5) /lpf U Epithel Cells (Auto) (0-5) /lpf Urine Bacteria (Auto) (Negative) Nasal Screen MRSA (PCR) (Negative) SARS-CoV-2, RNA, NAAT NEGATIVE (NEGATIVE) 11/04/21 11/04/21 11/04/21 Range/Units 21:31 21:31 21:12 WBC 7.81 (4.8-10.8) K/uL RBC 4.59 (4.2-5.4) M/uL Hgb 14.0 (12.0-16.0) g/dL Hct 40.8 (37-47) % MCV 88.9 (80-100) fL MCH 30.5 (25-34) pg MCHC 34.3 (32-36) g/dL RDW Std Deviation 39.0 (36.4-46.3) fL RDW Coeff of Keanu 12.2 (11.5-14.5) % Plt Count 343 (130-400) K/uL MPV 11.6 H (7.4-10.4) fL Immature Gran % (Auto) 0.3 % Neut % (Auto) 88.8 % Lymph % (Auto) 8.3 % [place] % (Auto) 2.3 % Eos % (Auto) 0.0 % Baso % (Auto) 0.3 % Neut # (Auto) 6.94 H (1.4-6.5) K/uL Lymph # (Auto) 0.65 L (1.2-3.4) K/uL [place] # (Auto) 0.18 (0.11-0.59) K/uL Eos # (Auto) 0.00 (0-0.5) K/uL Baso # (Auto) 0.02 (0-0.2) K/uL Immature Gran # (Auto) 0.02 (0.00-0.02) K/uL PT 12.0 (9.0-12.0) Seconds INR 1.1 (0.9-1.1) APTT 27.4 (21.0-31.0) Seconds PTT Ratio 1.0 VBG pH (7.36-7.41) VBG pCO2 (38-50) mmHg VBG pO2 mmHg VBG HCO3 mmol/L VBG O2 Saturation % VBG Base Excess mEq/L Sodium (136-145) mmol/L Potassium (3.5-5.1) mmol/L Chloride (98-107) mmol/L Carbon Dioxide (21-32) mmol/L Anion Gap (3-11) BUN (6-23) mg/dl Creatinine (0.6-1.2) mg/dl Est Cr Clr Drug Dosing ml/min Est GFR ( Amer) ml/min Est GFR (Non-Af Amer) ml/min BUN/Creatinine Ratio (10-20) Glucose (70-99(Fasting)) mg/dl POC Glucose 494 H* (70-99) mg/dl Lactate (0.4-2.0) mmol/L Calcium (8.5-10.1) mg/dl Phosphorus (2.5-4.9) mg/dl Magnesium (1.7-2.4) mg/dl Total Bilirubin (0.2-1.0) mg/dl AST (13-39) U/L ALT (7-52) U/L Alkaline Phosphatase (34-104) U/L Total Protein (6.0-8.3) gm/dl Albumin (3.4-5.0) gm/dl Globulin (2.5-4.0) gm/dl Albumin/Globulin Ratio (0.9-2) HCG, Qual (Negative) Urine Color Urine Appearance (Clear) Urine pH (4.5-7.5) Ur Specific [place] (1.000-1.030) Urine Protein (Negative) Urine Glucose (UA) (Negative) Urine Ketones (Negative) Urine Blood (Negative) Urine Nitrite (Negative) Urine Bilirubin (Negative) Urine Urobilinogen (Negative) Ur Leukocyte Esterase (Negative) Urine WBC (Auto) (0-5) /hpf Urine RBC (Auto) (0-4) /hpf U Hyaline Cast (Auto) (0-5) /lpf U Epithel Cells (Auto) (0-5) /lpf Urine Bacteria (Auto) (Negative) Nasal Screen MRSA (PCR) (Negative) SARS-CoV-2, RNA, NAAT (NEGATIVE) PG Care Time/CCT Total # of Minutes Spent Total Time Spent with Patient: Total time spent is greater than 50% in coordination of care (as documented) at patient's floor/unit and/or counseling patient: Coding Level of Care Code 21953 Subseq Hosp Care Lvl 3 Diagnoses DKA (diabetic ketoacidosis) E11.10 Type I diabetes mellitus E10.69 Diabetes mellitus complication status: with other specified complication Celiac disease K90.0 Acid reflux disease K21.9 Esophagitis presence: esophagitis presence not specified Depression F32.9 POTS (postural orthostatic tachycardia syndrome) I49.8 (1) Type I diabetes mellitus Diabetes mellitus complication status: with other specified complication Qualified Code(s): E10.69 - Type 1 diabetes mellitus with other specified complication (2) Acid reflux disease Esophagitis presence: esophagitis presence not specified Qualified Code(s): K21.9 - Gastro-esophageal reflux disease without esophagitis
[2021-11-05] MEDS: SERTRALINE HCL 50 MG TABLET PO SCH (11:03)
[2021-11-05] MEDS: PENDING D5 1/2NS+20mEq KCL IVF SCH (11:12)
[2021-11-05] MEDS: PENDING 1/2NSS+20mEq KCL IVF SCH (11:12)
[2021-11-05] MEDS: SODIUM CHLORIDE 1 GM TABLET PO SCH (12:02)
[2021-11-05 12:45] LABS: BUN Creatinine Ratio 15.1 (10-20); Calcium 8.2 mg/dl (8.5-10.1); Est GFR (African American) 130.8 ml/min; Est GFR (Non-African American) 112.9 ml/min; Magnesium 2.2 mg/dl (1.7-2.4); Phosphorus 1.9 mg/dl (2.5-4.9)
[2021-11-05] MEDS ORDERED: POTASSIUM PHOS 3 MMOL/1 ML INFUSION IV STA (14:48)
[2021-11-05] MEDS ORDERED: POTASSIUM PHOSPHATE 15 MMOL in SODIUM CHLORIDE 0.9% 250 ML IV ONE (15:00)
[2021-11-05 17:15] LABS: BUN Creatinine Ratio 13.4 (10-20); Calcium 8.1 mg/dl (8.5-10.1); Creatinine Clr Calc Pharmacy 108.9 ml/min; Est GFR (African American) 139.6 ml/min; Est GFR (Non-African American) 120.5 ml/min; Magnesium 1.7 mg/dl (1.7-2.4); Phosphorus 3.1 mg/dl (2.5-4.9)
[2021-11-05 17:36] LABS: Potassium 4.2 mmol/L (3.5-5.1)
[2021-11-05] MEDS ORDERED: PROPRANOLOL HCL 60 MG LA CAP PO SCH (21:00)
[2021-11-05] MEDS ORDERED: OMEGA-3 (PURIFIED FISH OIL) 1 GM CAP PO SCH (21:00)
[2021-11-05] MEDS ORDERED: traZODone HCL 50 MG TAB PO SCH (21:00)
[2021-11-06 06:04] LABS: Basophils # (auto) 0.01 K/uL (0-0.2); Basophils % (auto) 0.2 %; Eosinophils % (auto) 1.5 %; Hematocrit (blood only) 32.9 % (37-47); Hemoglobin 11.3 g/dL (12.0-16.0); Immature Granulocytes # (auto) 0.01 K/uL (0.00-0.02); Immature Granulocytes % (auto) 0.2 %; Lymphocytes # (auto) 2.37 K/uL (1.2-3.4); Lymphocytes % (auto) 36.3 %; Mean Corpuscular Hgb Conc 34.3 g/dL (32-36); Mean Corpuscular Volume 87.3 fL (80-100); Mean Platelet Volume 10.4 fL (7.4-10.4); Monocytes # (auto) 0.58 K/uL (0.11-0.59); Monocytes % (auto) 8.9 %; Neutrophils # (auto) 3.45 K/uL (1.4-6.5); Neutrophils % (auto) 52.9 %; Platelet Count 270 K/uL (130-400); RDW Coefficient of Variation 12.6 % (11.5-14.5); RDW Standard Deviation 40.5 fL (36.4-46.3); Red Blood Count 3.77 M/uL (4.2-5.4); White Blood Count 6.52 K/uL (4.8-10.8)
[2021-11-06 06:30] LABS: Albumin Globulin Ratio 1.4 (0.9-2); Albumin Level 3.2 gm/dl (3.4-5.0); BUN Creatinine Ratio 9.1 (10-20); Bilirubin,Total 1.4 mg/dl (0.2-1.0); Calcium 7.9 mg/dl (8.5-10.1); Creatinine Clr Calc Pharmacy 110.6 ml/min; Est GFR (African American) 140.3 ml/min; Est GFR (Non-African American) 121.1 ml/min; Globulin 2.3 gm/dl (2.5-4.0); Magnesium 1.5 mg/dl (1.7-2.4); Phosphorus 3.9 mg/dl (2.5-4.9); Potassium 3.8 mmol/L (3.5-5.1); Total Protein 5.5 gm/dl (6.0-8.3)
[2021-11-06] MEDS ORDERED: CARBOHYDRATES FOR HYPOGLYCEMIA PO PRN (06:59)
[2021-11-06] MEDS ORDERED: DEXTROSE 50% 50 ML SYRINGE IV PRN (06:59)
[2021-11-06] MEDS ORDERED: GLUCOSE 10 TABS/TUBE PO PRN (06:59)
[2021-11-06] MEDS ORDERED: GLUCAGON FOR INJ 1 MG VIAL SQ PRN (06:59)
[2021-11-06] MEDS ORDERED: GLUCOSE 40% GEL 15 GM TUBE PO PRN (06:59)
[2021-11-06] MEDS: INSULIN ASPART PER UNIT SC SCH ×3 (07:21→12:24)
[2021-11-06] MEDS: SODIUM CHLORIDE 1 GM TABLET PO SCH (08:00)
[2021-11-06] MEDS: PANTOprazole 40 MG TAB PO SCH (08:01)
[2021-11-06] MEDS: PRENATAL VITAMIN 1 TAB PO SCH (08:01)
[2021-11-06] MEDS: CHOLECALCIFEROL 1,000 UNITS 25 MCG TAB PO SCH (08:01)
[2021-11-06] MEDS: buPROPion XL 300 MG TABCR PO SCH (08:01)
[2021-11-06] MEDS ORDERED: LANTUS PER UNIT CHARGE SQ ONE ×2 (10:00→11:00)
[2021-11-06] MEDS: FLUTICASONE FUROATE 100MCG 14 PUFFS/INHALER INH SCH (10:23)
[2021-11-06] MEDS: SERTRALINE HCL 50 MG TABLET PO SCH (11:02)
--- NOTE | 2021-11-07 05:39 | Electrocardiogram Report ---
Test Reason : Blood Pressure : / mmHG Vent. Rate : 090 BPM Atrial Rate : 090 BPM P-R Int : 118 ms QRS Dur : 070 ms QT Int : 374 ms P-R-T Axes : 053 082 060 degrees QTc Int : 457 ms Normal sinus rhythm Normal ECG When compared with ECG of 03-AUG-2021 00:08, No significant change was found Confirmed by Marcos Piña ([id number]) on 11/07/2021 5:38:52 AM Referred By: REFERRED SELF Confirmed By:Marcos Piña
--- NOTE | 2021-11-08 11:47 | Discharge Summary ---
Date of Service November 06, 2021 Admission HPI Per Admitting Provider 26 y/o F Hx depression, POTS, celiac, DM I. Recent admission for intentional ASA OD. Multiple DKA admissions. Presents with nausea, vomiting and LLAMAS. She recognized this as DKA and reports that her insulin pump had failed. DKA was confirmed on arrival to the ER with a glucose of 540 and a PH of 7.2. The pt's BP is low on admission. There is no evidence of infection and she states that her systolic pressure is typically in the 80s. PMH: 1) DM I 2) Depression with prior suicide attempt 3) Borderline personality 4) Celiac 5) POTS 6) IBS D 7) Gilbert's syndrome 8) Colonic polyps Surgical: 1) Cataract 2) Polypectomy Social: Does not drink alcohol or smoke. Family: Father - CAD Mother - Celiac disease, bipolar Principal Diagnosis DKA Discharge Exam Constitutional WD/WN, vitals as above well developed, well nourished and + well hydrated; no acute distress Eyes PERRL, conjunctivae normal, anicteric sclerae ENMT external ear and nose normal, oropharynx normal Respiratory normal respiratory effort; no respiratory distress Musculoskeletal Moving all extremities equally Neurologic Speaking clearly, no aphasia Psychiatric A+Ox3, euthymic affect Discharge Data Allergies Allergy/AdvReac Type Severity Reaction Status Date / Time gluten Allergy Severe CELIAC'S Verified 11/04/21 22:50 DISEASE Penicillins Allergy Severe ANAPHYLAXIS Verified 11/04/21 22:50 shellfish derived Allergy Severe ANAPHYLAXIS Verified 11/04/21 22:50 apple Allergy Intermediate THROAT Verified 11/04/21 22:50 SWELLS house dust Allergy Intermediate Hives Verified 11/04/21 22:50 oxcarbazepine Allergy Intermediate Rash,hives Verified 11/04/21 22:50 and itchiness. lactose AdvReac Intermediate Gatrointestinal Verified 11/04/21 22:50 Upset sumatriptan [From Imitrex] AdvReac Intermediate INTENSIFIES Verified 11/04/21 22:50 HEADACHE Consultations 11/04/21 22:30 ED Decision to Admit Stat 11/05/21 00:12 Consult Collision Technician Routine Hospital Course (1) DKA (diabetic ketoacidosis): 26 y/o F Hx depression, POTS, celiac, DM I. Recent admission for intentional ASA OD. Multiple DKA admissions. Presents with nausea, vomiting and LLAMAS. She recognized this as DKA and reports that her insulin pump had failed. DKA was confirmed on arrival to the ER with a glucose of 540 and a PH of 7.2. There is no evidence of infection and she states that her systolic pressure is typically in the 80s due to taking propranolol for POTS DKA - ICU protocol - insulin GTT, IVF, serial lytes, VBG. Now improving. Anion gap is closed and she has been weaned off insulin drip and on basal and bolus insulin. Electrolytes replaced today to include potassium and phosphorus and magnesium. Plan to transition back to insulin pump prior to discharge- has all the supplies with her. Follow-up with endocrinology as an outpatient Her hemoglobin A1c is 10.1 in 08/2021-uncontrolled Can transition out of the ICU -Continue to follow BMP, VBG, mag, Phos but can change to once daily -Appreciate pharmacy glycemic management -Discontinue IV fluids as she is now tolerating p.o. later in the day On 11/06/21 Patient reports feeling well. Insulin pump is now working. Discussed with pharmacy, patient can be discharged. Plan is to hold basal insulin in the pump as basal dose was given today. Patient will resume tomorrow. Patient has no questions. (2) Type I diabetes mellitus: As above (3) Depression: Controlled. With a recent admission for suicide attempt with aspirin overdose She denies SI/HI and follows with psychiatry at [facility] psychiatric clinic cont sertraline, bupropion, trazodone, hydroxyzine She needs to bring in her home Rexulti (4) POTS (postural orthostatic tachycardia syndrome): With soft blood pressures in the 80s systolic, mild tachycardia She did not get her propranolol last night She reports that immediate release propranolol has too rapid of an onset of action and causes her more lightheadedness even at lower doses Continue propranolol 60 mg at bedtime and change hold parameters to only hold for SBP less than 90 -Add NIEVES hose -Give scheduled dose of sodium chloride 1000 mg p.o. daily in the morning, first dose now-at home, she tries to take it as needed but by the time she has symptoms of lightheadedness, it is too late (5) Acid reflux disease: Continue Protonix 40 Mg p.o. twice daily (6) Celiac disease: Needs gluten-free diet DVT prophylaxis-add NIEVES hose for POTS, Lovenox Total Time Total Time Spent Total Time Spent (In Minutes): 35 Discharge Plan Discharge Items Patient Disposition: Home - Self-Care Reason For Visit: DKA Discharge Diagnosis: DKA Condition on Discharge: Good Activity: Resume your previous activity Non-emergency contact: Primary Care Provider Call non-emergency contact if: you have any medication questions Follow-up/Referrals: Tamara Palomo PA-C [Primary Care Provider] - 11/17/21 3:00 pm Diet: Carb Count or DM1 Addtl Attending Provider Instructions: Please turn off basal settings off your pump today. ok to resume basal tomorrow. You have been hospitalized for an acute medical problem. During your stay at [facility], we have made an effort to correct the problem that brought you to the hospital while keeping you as comfortable as possible. Medications were used to bring your condition under control and your discharge instructions will include directions for any medications you should take after leaving the hospital. Please make sure you see your Primary Care Provider as part of your follow up plan. Pending Studies at Discharge: No Stand-Alone Forms: [facility], Work/School Release, Smoking Cessation Medications and DC Order Prescriptions: Continued Basaglar KwikPen U-100 Insulin 100 unit/mL (3 mL) insulin pen 20 units SQ DAILY@16 PRN (Reason: Novolog Pump Failure) RF: 0 insulin aspart U-100 100 unit/mL solution 100 unit continuous subcutaneous infusion CONTINOUS 90 Days Qty: 90 RF: 1 (DME) Aerochamber MV spacer See Rx Instructions .ROUTE .MEDSUPPLY Qty: 1 RF: 0 hydroxyzine HCl 25 mg tablet 25 mg PO DAILY PRN (Reason: Anxiety) RF: 0 (DME) Ketostix Strip See Rx Instructions .ROUTE .MEDSUPPLY Qty: 100 RF: 2 glucagon 3 mg/actuation spray,non-aerosol 3 mg intranasal PRN Qty: 2 RF: 3 (DME) insulin syringe-needle U-100 [BD Insulin Syringe] 0.3 mL 29 gauge x 1/2" syringe See Rx Instructions .Route Qty: 100 RF: 3 (DME) comp.stocking,thigh,short,smal Misc See Rx Instructions .ROUTE .MEDSUPPLY Qty: 2 RF: 1 ketorolac 10 mg tablet 10 mg PO Q6H PRN (Reason: Pain) RF: 0 vitamin E (dl, acetate) 45 mg (100 unit) capsule 45 mg PO QAM RF: 0 cholecalciferol (vitamin D3) 50 mcg (2,000 unit) capsule 100 mcg PO DAILY RF: 0 prenat.vits,mathieu,bpl-ickd-ytrgb Tablet 1 tab PO QAM RF: 0 Botox 200 unit recon soln See Rx Instructions IM .COMPLEX Qty: 1 RF: 3 (DME) insulin pump controller Misc MISCELLANEOUS RF: 0 sodium chloride 1 gram tablet 1,000 mg PO BID PRN (Reason: orthostatic hypotension) RF: 0 bupropion HCl 150 mg tablet extended release 24 hr 300 mg PO QAM RF: 0 propranolol [Inderal LA] 60 mg capsule,extended release 24 hr 60 mg PO HS RF: 0 trazodone 50 mg tablet 50 mg PO HS RF: 0 fluticasone propionate [Flovent HFA] 220 mcg/actuation HFA aerosol inhaler 220 mcg INHALATION QAM RF: 0 pantoprazole 40 mg tablet,delayed release (DR/EC) 40 mg PO BID RF: 0 omega 3-bje-goj-fish oil [Fish Oil] 1,000 mg (120 mg-180 mg) Capsule 1 cap PO HS RF: 0 Rexulti 1 mg tablet 1 mg PO QAM RF: 0 Linzess 72 mcg capsule 72 mcg PO DAILY PRN (Reason: Constipation) RF: 0 Discharge Orders: Discharge Order (Routine); Ordered 11/06/21 Ordered By: Dipesh Donis Admission Data Admit Date/Time: 11/04/21 23:18 Attending Provider: Dipesh Donis Admit Provider: Yousif Moss Primary Care Provider: Tamara Palomo Other Providers: Yousif Moss ; Darian Morgan Other Interventions: Discharge Summary Assessment (RN) Last Done: 11/06/21 12:49 Coding Level of Care Code D/C DAY MANAGEMENT >30 MINS Diagnoses DKA (diabetic ketoacidosis) E11.10 Type I diabetes mellitus E10.69 Diabetes mellitus complication status: with other specified complication Depression F32.9 POTS (postural orthostatic tachycardia syndrome) I49.8 Acid reflux disease K21.9 Esophagitis presence: esophagitis presence not specified Celiac disease K90.0
== END 2021-11-06 13:31 | disposition home or self-care (01) | DRG 638 ==
LOC: ED 21:04 → 1E 23:18 → SUATTDRO 23:18 → 1E 23:39 → 2S 11-05 16:54

== ENCOUNTER 2022-01-27 06:20 | Inpatient (IN) ==
--- NOTE | 2022-01-27 06:48 | Emergency Department Note ---
History of Present Illness General Chief complaint: Overdose (Accidental) Stated complaint: NAUSEA,DIZZINESS,TIREDNESS - ASPIRIN OD? Time Seen by Provider: 01/27/22 06:33 History of Present Illness 26-year-old female presents to the ED with a chief complaint of aspirin overdose. The patient, per the triage note consumed 3325 mg aspirin tablets, 9750 milligrams total. She reportedly did this between 1 and 4 AM. The patient also stated they upon entering that she had some nausea, dizziness and tiredness. When I presented myself to the patient and asked her what was going on, the patient did not respond. The patient remained silent and did not look at me. I asked her a couple of times what brings her to the emergency department and she did not respond. After snapping my fingers in front of her, she then responded by telling me not to do that and that that was obnoxious. I then asked her again what brings her to the emergency department or what happened she stated that she was not sure why she was here. She provided no additional information following this. He requested a different doctor, however there was no additional doctor available when she arrived and therefore to that I was the only doctor available. Home Medications Medication Instructions Recorded Confirmed Type insulin glargine 100 unit/mL (3 20 units subcut DAILY@16 PRN 11/26/18 01/27/22 History mL) subcutaneous pen (Basaglar Novolog Pump Failure KwikPen U-100 Insulin) inhalational spacing device #1 ea 03/27/19 01/16/22 Rx (Aerochamber MV spacer) insulin pump controller 12/27/19 01/16/22 History comp.stocking,thigh,short,smal #2 ea 09/21/20 01/16/22 Rx fluticasone propionate 220 220 mcg inhalation QAM 02/12/21 01/27/22 History mcg/actuation HFA aerosol inhaler (Flovent HFA) trazodone 50 mg tablet 50 mg PO HS 02/12/21 01/27/22 History hydroxyzine HCl 25 mg tablet 25 mg PO DAILY PRN Anxiety 05/12/21 01/27/22 History cholecalciferol (vitamin D3) 50 100 mcg PO DAILY 07/04/21 01/27/22 History mcg (2,000 unit) capsule prenat.vits,mathieu,xfp-acec-xhudo 1 tab PO QAM 07/04/21 01/27/22 History vitamin E (dl, acetate) 45 mg (100 45 mg PO QAM 07/04/21 01/27/22 History unit) capsule sodium chloride 1 gram tablet 1,000 mg PO BID PRN orthostatic 07/20/21 01/27/22 History hypotension acetone (urine) test (Ketostix #100 ea 08/09/21 01/16/22 Rx strips) glucagon 3 mg/actuation nasal spray 3 mg intranasal PRN hypoglycemia 08/09/21 01/27/22 Rx #2 ea insulin syringe-needle U-100 0.3 #100 ea 08/09/21 01/16/22 Rx mL 29 gauge x 1/2" (BD Insulin Syringe) insulin aspart U-100 100 unit/mL 100 unit continuous subcutaneous 09/08/21 01/27/22 Rx subcutaneous solution infusion CONTINOUS 90 days #90 mL brexpiprazole 1 mg tablet (Rexulti) 1 mg PO QAM 11/04/21 01/27/22 History linaclotide 72 mcg capsule 72 mcg PO DAILY PRN Constipation 11/04/21 01/27/22 History (Linzess) omega 9-yun-kzm-fish oil 1,000 mg 1 cap PO HS 11/04/21 01/27/22 History (120 mg-180 mg) capsule (Fish Oil) pantoprazole 40 mg tablet,delayed 40 mg PO BID 11/04/21 01/27/22 History release propranolol 60 mg capsule,24 60 mg PO HS #30 caps 11/22/21 01/27/22 Rx hr,extended release (Inderal LA) sertraline 50 mg tablet (Zoloft) 50 mg PO DAILY 12/12/21 01/27/22 History propranolol 10 mg tablet 10 mg PO BID PRN palpitations #60 01/16/22 01/27/22 Rx tabs onabotulinumtoxinA 200 unit See Rx Instructions IM .COMPLEX #1 01/17/22 01/27/22 Rx solution for injection (Botox) ea bupropion HCl 300 mg 24 hr tablet, 300 mg PO DAILY 01/27/22 01/27/22 History extended release Allergies Allergy/AdvReac Type Severity Reaction Status Date / Time gluten Allergy Severe CELIAC'S Verified 01/27/22 07:18 DISEASE Penicillins Allergy Severe ANAPHYLAXIS Verified 01/27/22 07:18 shellfish derived Allergy Severe ANAPHYLAXIS Verified 01/27/22 07:18 apple Allergy Intermediate THROAT Verified 01/27/22 07:18 SWELLS house dust Allergy Intermediate Hives Verified 01/27/22 07:18 oxcarbazepine Allergy Intermediate Rash,hives Verified 01/27/22 07:18 and itchiness. lactose AdvReac Intermediate Gatrointestinal Verified 01/27/22 07:18 Upset sumatriptan [From Imitrex] AdvReac Intermediate INTENSIFIES Verified 01/27/22 07:18 HEADACHE Past Med/Surg History Medical History Acid reflux disease (~2013) Allergic rhinitis Asthma . Borderline personality disorder . Celiac disease Chronic joint pain Depression Depression with suicidal ideation Diabetic gastroparesis associated with type 1 diabetes mellitus (~2016) DKA (diabetic ketoacidoses) Generalized anxiety disorder Gilbert's syndrome Intentional aspirin overdose Intentional overdose Irritable bowel syndrome with constipation Lumbar radiculopathy Migraines Osteopenia Osteoporosis POTS (postural orthostatic tachycardia syndrome) Type I diabetes mellitus (~2013) Followed by Endocrinology Surgical History History of cataract surgery bilateral History of colonoscopy History of esophagogastroduodenoscopy (EGD) History of strabismus surgery right Family History Mother Alcohol abuse Adult celiac disease Osteoporosis Seizure Celiac disease Father Skin cancer squamous cell Drug abuse Alcohol abuse Anxiety Seizure Grandfather Alcohol abuse Uncle Drug abuse Alcohol abuse Brother Drug abuse Unknown Cancer Grandmother Diabetes Colorectal cancer Celiac disease Grandmother Type 1 diabetes Other Bipolar 1 disorder No family history of adverse response to anesthesia Denies family history of Ovarian cancer Prostate cancer Myocardial infarction Breast cancer Lung cancer Hypertension Social History Smoking Status: Never smoker Tobacco Type: Cigarettes Age Started Using Tobacco: 18; Age Quit Using Tobacco: 20; Cigarettes Per Day: 1 per month; Second Hand Exposure: Yes; Hx Alcohol Use: No Hx Substance Use: No Preferred Language: Dominican Communication Ability: Effective Visual Impairment: No Limitations Hearing Ability: Normal Identity Access Management Architect Required: No Beliefs That Will Affect Care: None marital status: Single Current Living Situation: Other Current Living Situation Comment: Lives with "Landlord" and "Landlady" current occupational status: employed current occupation: [employer] Feels Safe at Home: Yes Childhood Exposure to Second-Hand Smoke: Yes caffeine: Yes Dental Care, Regularly: Yes Physical Activity Frequency: 3-4 Times per Week Physical Activity Frequency Comment: walks Seatbelt Use: always Sunscreen Use: Yes (when in the sun for an extended time) Assistive Devices: Glasses Review of Systems A total of 10 systems reviewed and were otherwise negative Physical Exam Vital Signs Vital Signs - 24 hr 01/27/22 06:28 01/27/22 07:01 01/27/22 07:09 Temperature 36.6 C Temperature Source Temporal Artery Scan Pulse Rate 71 Pulse Rate [Apical] 85 Pulse Rate from SpO2 Sensor Respiratory Rate 20 16 Respiratory Effort / Characteristics Non-Labored Spontaneous Respiratory Depth Normal Blood Pressure 109/74 Blood Pressure [Right Arm] 103/76 Blood Pressure Mean 85 Blood Pressure Mean [Right Arm] 85 Blood Pressure Position Sitting Blood Pressure Position [Right Arm] Lying Pulse Oximetry 98 100 Oxygen Delivery Method Room Air Room Air Room Air Sepsis Recent Fever Within 48 Hours No Sepsis New/Unexplained Change in Mental Status No Sepsis Action Taken by Nursing No Action Required 01/27/22 09:00 01/27/22 06:59 01/27/22 07:00 Temperature Temperature Source Pulse Rate 68 68 Pulse Rate [Apical] 84 Pulse Rate from SpO2 Sensor Respiratory Rate 18 21 23 Respiratory Effort / Characteristics Non-Labored Respiratory Depth Normal Blood Pressure Blood Pressure [Right Arm] 93/67 L Blood Pressure Mean Blood Pressure Mean [Right Arm] 75 Blood Pressure Position Blood Pressure Position [Right Arm] Pulse Oximetry 97 Oxygen Delivery Method Room Air Sepsis Recent Fever Within 48 Hours Sepsis New/Unexplained Change in Mental Status Sepsis Action Taken by Nursing 01/27/22 07:05 01/27/22 07:05 01/27/22 07:30 Temperature Temperature Source Pulse Rate 67 Pulse Rate [Apical] Pulse Rate from SpO2 Sensor 69 Respiratory Rate 24 Respiratory Effort / Characteristics Respiratory Depth Blood Pressure 103/76 109/68 Blood Pressure [Right Arm] Blood Pressure Mean 85 81 Blood Pressure Mean [Right Arm] Blood Pressure Position Blood Pressure Position [Right Arm] Pulse Oximetry 100 Oxygen Delivery Method Sepsis Recent Fever Within 48 Hours Sepsis New/Unexplained Change in Mental Status Sepsis Action Taken by Nursing 01/27/22 07:30 01/27/22 08:00 01/27/22 08:00 Temperature Temperature Source Pulse Rate 74 71 Pulse Rate [Apical] Pulse Rate from SpO2 Sensor 73 70 Respiratory Rate 18 21 Respiratory Effort / Characteristics Respiratory Depth Blood Pressure 102/69 Blood Pressure [Right Arm] Blood Pressure Mean 80 Blood Pressure Mean [Right Arm] Blood Pressure Position Blood Pressure Position [Right Arm] Pulse Oximetry 99 98 Oxygen Delivery Method Sepsis Recent Fever Within 48 Hours Sepsis New/Unexplained Change in Mental Status Sepsis Action Taken by Nursing 01/27/22 08:30 01/27/22 09:00 01/27/22 09:01 Temperature Temperature Source Pulse Rate 79 79 Pulse Rate [Apical] Pulse Rate from SpO2 Sensor 77 80 Respiratory Rate 15 12 Respiratory Effort / Characteristics Respiratory Depth Blood Pressure 93/67 L Blood Pressure [Right Arm] Blood Pressure Mean 75 Blood Pressure Mean [Right Arm] Blood Pressure Position Blood Pressure Position [Right Arm] Pulse Oximetry 100 99 Oxygen Delivery Method Sepsis Recent Fever Within 48 Hours Sepsis New/Unexplained Change in Mental Status Sepsis Action Taken by Nursing 01/27/22 09:01 01/27/22 09:30 01/27/22 09:30 Temperature Temperature Source Pulse Rate 83 77 Pulse Rate [Apical] Pulse Rate from SpO2 Sensor 77 77 Respiratory Rate 19 28 H Respiratory Effort / Characteristics Respiratory Depth Blood Pressure 100/63 Blood Pressure [Right Arm] Blood Pressure Mean 75 Blood Pressure Mean [Right Arm] Blood Pressure Position Blood Pressure Position [Right Arm] Pulse Oximetry 99 97 Oxygen Delivery Method Sepsis Recent Fever Within 48 Hours Sepsis New/Unexplained Change in Mental Status Sepsis Action Taken by Nursing 01/27/22 10:00 01/27/22 10:30 Temperature Temperature Source Pulse Rate 86 78 Pulse Rate [Apical] Pulse Rate from SpO2 Sensor 87 78 Respiratory Rate 16 21 Respiratory Effort / Characteristics Respiratory Depth Blood Pressure 104/72 Blood Pressure [Right Arm] Blood Pressure Mean 82 Blood Pressure Mean [Right Arm] Blood Pressure Position Blood Pressure Position [Right Arm] Pulse Oximetry 97 98 Oxygen Delivery Method Sepsis Recent Fever Within 48 Hours Sepsis New/Unexplained Change in Mental Status Sepsis Action Taken by Nursing CONSTITUTIONAL/VITAL SIGNS: Reviewed / noted above. GENERAL: Non-toxic in appearance. INTEGUMENTARY: Warm, dry, and [place]. HEAD: Normocephalic. EYES: without scleral icterus or trauma. ENT/OROPHARYNX: clear and moist. RESPIRATORY:No increased work of breathing. CARDIOVASCULAR: Regular rate and rhythm. EXTREMITIES: Warm and well perfused. NEUROLOGICAL: Intact without focal deficits. PSYCHIATRIC: Flat somewhat irritable affect. MUSCULOSKELETAL: Normally developed with good muscle tone. TRIAGE NURSING DOCUMENTATION REVIEWED. Course Administered Medications Sodium Bicarbonate 150 meq/Potassium Chloride 40 meq/Dextrose 1,170 mls @ 250 mls/hr IV .[id number] [facility] Stop: 02/26/22 09:29 Last Admin: 01/27/22 09:53 Dose: 250 mls/hr Documented By: HS Discontinued Medications Insulin Human Regular (Novolin-R Insulin Per Unit Charge) 6 units SC NOW STA Stop: 01/27/22 08:32 Last Admin: 01/27/22 08:59 Dose: 6 units Documented By: CRIS Co-signed By: KATHY Sodium Bicarbonate (Sodium Bicarb 8.4% Inj 50 Meq/50 Ml Syr) 150 meq IV NOW ONE Stop: 01/27/22 09:31 Last Admin: 01/27/22 10:05 Dose: 150 meq Documented By: THOM Critical Care Time Critical Care Time: Yes Total Critical Care Time: 30 I have personally spent 30 minutes of critical care time in the direct management of this patient. This includes bedside care, interpretation of diagnostic studies, and testing, discussion with consultants, patient, and family members, and other required patient management activities. This 30 minutes is in excess of all separately billable procedures. Medical Decision Making Differential Diagnosis Differential includes overdose on Tylenol/aspirin/ethanol, ethylene glycol, methanol, prescribed medications, not prescribe medications/street drugs, metabolic process, traumatic process. Medical Records Attestation: I reviewed the patient's medical records. Home Medications Current Medication List: was personally reviewed by me Laboratory Data Attestation: I reviewed the patient's lab results. Result diagrams: 01/27/22 06:56 01/27/22 08:25 Lab Results 01/27/22 01/27/22 01/27/22 Range/Units 06:56 06:56 06:56 WBC 8.32 (4.8-10.8) K/ul RBC 4.41 (3.93-5.22) M/uL Hgb 13.8 (12.0-16.0) g/dl Hct 38.9 (34.1-44.9) % MCV 88.2 (80.0-100.0) fL MCH 31.3 (25.0-34.0) pg MCHC 35.5 (32.0-36.0) g/dL RDW Std Deviation 35.9 L (36.4-46.3) fL RDW Coeff of Keanu 11.1 L (11.5-14.5) % Plt Count 391 (130-400) K/uL MPV 11.7 (9.4-12.3) fL Immature Gran % (Auto) 0.5 % Neut % (Auto) 54.3 % Lymph % (Auto) 32.7 % Iron % (Auto) 8.8 % Eos % (Auto) 2.4 % Baso % (Auto) 1.3 % Neut # (Auto) 4.52 (1.4-6.5) K/uL Lymph # (Auto) 2.72 (1.2-3.4) K/uL Iron # (Auto) 0.73 (0.24-0.82) K/uL Eos # (Auto) 0.20 (0-0.50) K/uL Baso # (Auto) 0.11 (0-0.2) K/uL Immature Gran # (Auto) 0.04 H (0.00-0.02) K/uL Sodium 131 L (136-145) mmol/L Potassium TNP Chloride 96 L (98-107) mmol/L Carbon Dioxide 27 (21-32) mmol/L Anion Gap 8 (3-11) BUN 12 (6-23) mg/dl Creatinine 0.80 (0.6-1.2) mg/dl Est Cr Clr Drug Dosing 91.2 ml/min Est GFR ( Amer) 117.1 ml/min Est GFR (Non-Af Amer) 101.0 ml/min BUN/Creatinine Ratio 15.0 (10-20) Glucose 445 H* (70-99(Fasting)) mg/dl Calcium 9.5 (8.5-10.1) mg/dl Total Bilirubin 0.5 (0.2-1.0) mg/dl AST TNP ALT 10 (7-52) U/L Alkaline Phosphatase 88 (34-104) U/L Total Protein 7.8 (6.0-8.3) gm/dl Albumin 4.4 (3.4-5.0) gm/dl Globulin 3.4 (2.5-4.0) gm/dl Albumin/Globulin Ratio 1.3 (0.9-2) TSH 3.678 (0.300-4.500) uIu/ml Urine Color Urine Appearance (Clear) Urine pH (4.5-7.5) Ur Specific Mather (1.000-1.030) Urine Protein (Negative) Urine Glucose (UA) (Negative) Urine Ketones (Negative) Urine Blood (Negative) Urine Nitrite (Negative) Urine Bilirubin (Negative) Urine Urobilinogen (Negative) Ur Leukocyte Esterase (Negative) Urine WBC (Auto) (0-5) /hpf Urine RBC (Auto) (0-4) /hpf U Hyaline Cast (Auto) (0-5) /lpf U Epithel Cells (Auto) (0-5) /lpf Urine Bacteria (Auto) (Negative) POC Ur Test (NEG) Salicylates (3.0-30) mg/dl Urine Opiates Screen (Neg) Ur Methadone, Qual (Neg) Acetaminophen (10-30) ug/ml Urine Barbiturates (Neg) Ur Phencyclidine (PCP) (Neg) U Amphetamin/Meth Scrn (Neg) MDMA (Ecstasy) Screen (Neg) U Benzodiazepines Scrn (Neg) Ur Cocaine Metabolite (Neg) U Marijuana (THC) Screen (Neg) Ethyl Alcohol mg/dL (<10.0) mg/dl SARS-CoV-2, RNA, NAAT (NEGATIVE) 01/27/22 01/27/22 01/27/22 Range/Units 06:56 06:56 06:56 WBC (4.8-10.8) K/ul RBC (3.93-5.22) M/uL Hgb (12.0-16.0) g/dl Hct (34.1-44.9) % MCV (80.0-100.0) fL MCH (25.0-34.0) pg MCHC (32.0-36.0) g/dL RDW Std Deviation (36.4-46.3) fL RDW Coeff of Keanu (11.5-14.5) % Plt Count (130-400) K/uL MPV (9.4-12.3) fL Immature Gran % (Auto) % Neut % (Auto) % Lymph % (Auto) % Iron % (Auto) % Eos % (Auto) % Baso % (Auto) % Neut # (Auto) (1.4-6.5) K/uL Lymph # (Auto) (1.2-3.4) K/uL Iron # (Auto) (0.24-0.82) K/uL Eos # (Auto) (0-0.50) K/uL Baso # (Auto) (0-0.2) K/uL Immature Gran # (Auto) (0.00-0.02) K/uL Sodium (136-145) mmol/L Potassium Chloride (98-107) mmol/L Carbon Dioxide (21-32) mmol/L Anion Gap (3-11) BUN (6-23) mg/dl Creatinine (0.6-1.2) mg/dl Est Cr Clr Drug Dosing ml/min Est GFR ( Amer) ml/min Est GFR (Non-Af Amer) ml/min BUN/Creatinine Ratio (10-20) Glucose (70-99(Fasting)) mg/dl Calcium (8.5-10.1) mg/dl Total Bilirubin (0.2-1.0) mg/dl AST ALT (7-52) U/L Alkaline Phosphatase (34-104) U/L Total Protein (6.0-8.3) gm/dl Albumin (3.4-5.0) gm/dl Globulin (2.5-4.0) gm/dl Albumin/Globulin Ratio (0.9-2) TSH (0.300-4.500) uIu/ml Urine Color Urine Appearance (Clear) Urine pH (4.5-7.5) Ur Specific Mather (1.000-1.030) Urine Protein (Negative) Urine Glucose (UA) (Negative) Urine Ketones (Negative) Urine Blood (Negative) Urine Nitrite (Negative) Urine Bilirubin (Negative) Urine Urobilinogen (Negative) Ur Leukocyte Esterase (Negative) Urine WBC (Auto) (0-5) /hpf Urine RBC (Auto) (0-4) /hpf U Hyaline Cast (Auto) (0-5) /lpf U Epithel Cells (Auto) (0-5) /lpf Urine Bacteria (Auto) (Negative) POC Ur Test (NEG) Salicylates 32.9 H* (3.0-30) mg/dl Urine Opiates Screen (Neg) Ur Methadone, Qual (Neg) Acetaminophen < 3 L (10-30) ug/ml Urine Barbiturates (Neg) Ur Phencyclidine (PCP) (Neg) U Amphetamin/Meth Scrn (Neg) MDMA (Ecstasy) Screen (Neg) U Benzodiazepines Scrn (Neg) Ur Cocaine Metabolite (Neg) U Marijuana (THC) Screen (Neg) Ethyl Alcohol mg/dL < 10.0 (<10.0) mg/dl SARS-CoV-2, RNA, NAAT (NEGATIVE) 01/27/22 01/27/22 01/27/22 Range/Units 07:46 07:46 07:46 WBC (4.8-10.8) K/ul RBC (3.93-5.22) M/uL Hgb (12.0-16.0) g/dl Hct (34.1-44.9) % MCV (80.0-100.0) fL MCH (25.0-34.0) pg MCHC (32.0-36.0) g/dL RDW Std Deviation (36.4-46.3) fL RDW Coeff of Keanu (11.5-14.5) % Plt Count (130-400) K/uL MPV (9.4-12.3) fL Immature Gran % (Auto) % Neut % (Auto) % Lymph % (Auto) % Iron % (Auto) % Eos % (Auto) % Baso % (Auto) % Neut # (Auto) (1.4-6.5) K/uL Lymph # (Auto) (1.2-3.4) K/uL Iron # (Auto) (0.24-0.82) K/uL Eos # (Auto) (0-0.50) K/uL Baso # (Auto) (0-0.2) K/uL Immature Gran # (Auto) (0.00-0.02) K/uL Sodium (136-145) mmol/L Potassium Chloride (98-107) mmol/L Carbon Dioxide (21-32) mmol/L Anion Gap (3-11) BUN (6-23) mg/dl Creatinine (0.6-1.2) mg/dl Est Cr Clr Drug Dosing ml/min Est GFR ( Amer) ml/min Est GFR (Non-Af Amer) ml/min BUN/Creatinine Ratio (10-20) Glucose (70-99(Fasting)) mg/dl Calcium (8.5-10.1) mg/dl Total Bilirubin (0.2-1.0) mg/dl AST ALT (7-52) U/L Alkaline Phosphatase (34-104) U/L Total Protein (6.0-8.3) gm/dl Albumin (3.4-5.0) gm/dl Globulin (2.5-4.0) gm/dl Albumin/Globulin Ratio (0.9-2) TSH (0.300-4.500) uIu/ml Urine Color Yellow Urine Appearance Clear (Clear) Urine pH 7.0 (4.5-7.5) Ur Specific Mather 1.017 (1.000-1.030) Urine Protein Negative (Negative) Urine Glucose (UA) 3+ H (Negative) Urine Ketones Trace H (Negative) Urine Blood 2+ H (Negative) Urine Nitrite Negative (Negative) Urine Bilirubin Negative (Negative) Urine Urobilinogen Negative (Negative) Ur Leukocyte Esterase Negative (Negative) Urine WBC (Auto) 1-5 (0-5) /hpf Urine RBC (Auto) 0-4 (0-4) /hpf U Hyaline Cast (Auto) 0 (0-5) /lpf U Epithel Cells (Auto) 10-20 H (0-5) /lpf Urine Bacteria (Auto) Negative (Negative) POC Ur Test NEG (NEG) Salicylates (3.0-30) mg/dl Urine Opiates Screen Neg (Neg) Ur Methadone, Qual Neg (Neg) Acetaminophen (10-30) ug/ml Urine Barbiturates Neg (Neg) Ur Phencyclidine (PCP) Neg (Neg) U Amphetamin/Meth Scrn Neg (Neg) MDMA (Ecstasy) Screen Neg (Neg) U Benzodiazepines Scrn Neg (Neg) Ur Cocaine Metabolite Neg (Neg) U Marijuana (THC) Screen Neg (Neg) Ethyl Alcohol mg/dL (<10.0) mg/dl SARS-CoV-2, RNA, NAAT (NEGATIVE) 01/27/22 01/27/22 01/27/22 Range/Units 08:25 09:39 10:17 WBC (4.8-10.8) K/ul RBC (3.93-5.22) M/uL Hgb (12.0-16.0) g/dl Hct (34.1-44.9) % MCV (80.0-100.0) fL MCH (25.0-34.0) pg MCHC (32.0-36.0) g/dL RDW Std Deviation (36.4-46.3) fL RDW Coeff of Keanu (11.5-14.5) % Plt Count (130-400) K/uL MPV (9.4-12.3) fL Immature Gran % (Auto) % Neut % (Auto) % Lymph % (Auto) % Iron % (Auto) % Eos % (Auto) % Baso % (Auto) % Neut # (Auto) (1.4-6.5) K/uL Lymph # (Auto) (1.2-3.4) K/uL Iron # (Auto) (0.24-0.82) K/uL Eos # (Auto) (0-0.50) K/uL Baso # (Auto) (0-0.2) K/uL Immature Gran # (Auto) (0.00-0.02) K/uL Sodium (136-145) mmol/L Potassium 5.1 Chloride (98-107) mmol/L Carbon Dioxide (21-32) mmol/L Anion Gap (3-11) BUN (6-23) mg/dl Creatinine (0.6-1.2) mg/dl Est Cr Clr Drug Dosing ml/min Est GFR ( Amer) ml/min Est GFR (Non-Af Amer) ml/min BUN/Creatinine Ratio (10-20) Glucose (70-99(Fasting)) mg/dl Calcium (8.5-10.1) mg/dl Total Bilirubin (0.2-1.0) mg/dl AST 13 ALT (7-52) U/L Alkaline Phosphatase (34-104) U/L Total Protein (6.0-8.3) gm/dl Albumin (3.4-5.0) gm/dl Globulin (2.5-4.0) gm/dl Albumin/Globulin Ratio (0.9-2) TSH (0.300-4.500) uIu/ml Urine Color Urine Appearance (Clear) Urine pH (4.5-7.5) Ur Specific Mather (1.000-1.030) Urine Protein (Negative) Urine Glucose (UA) (Negative) Urine Ketones (Negative) Urine Blood (Negative) Urine Nitrite (Negative) Urine Bilirubin (Negative) Urine Urobilinogen (Negative) Ur Leukocyte Esterase (Negative) Urine WBC (Auto) (0-5) /hpf Urine RBC (Auto) (0-4) /hpf U Hyaline Cast (Auto) (0-5) /lpf U Epithel Cells (Auto) (0-5) /lpf Urine Bacteria (Auto) (Negative) POC Ur Test (NEG) Salicylates 31.3 H* (3.0-30) mg/dl Urine Opiates Screen (Neg) Ur Methadone, Qual (Neg) Acetaminophen (10-30) ug/ml Urine Barbiturates (Neg) Ur Phencyclidine (PCP) (Neg) U Amphetamin/Meth Scrn (Neg) MDMA (Ecstasy) Screen (Neg) U Benzodiazepines Scrn (Neg) Ur Cocaine Metabolite (Neg) U Marijuana (THC) Screen (Neg) Ethyl Alcohol mg/dL (<10.0) mg/dl SARS-CoV-2, RNA, NAAT NEGATIVE (NEGATIVE) ECG Data Attestation: I personally reviewed and interpreted this ECG as follows: Additional Comments: Twelve-lead EKG:: Per my interpretation shows a normal sinus rhythm at a rate of 70. No ST elevation. No PVCs. Normal QTC. MDM Narrative 26-year-old female with possible intentional overdose on aspirin as detailed above. CBC was normal. Chemistry panel shows a glucose of 445. She is a insulin-dependent diabetic. Negative alcohol and negative acetaminophen. Salicylate level was 32.9. Urine drug screen is negative. test was negative. COVID test is negative. We spoke with the Po[facility] Control [facility]. They recommended 2 or 3 A of sodium bicarb. 3 A were given. They also recommen ded that the patient be started on a D5W with 150 mg of sodium bicarb and 40 mill equivalents of potassium at 250 cc/h for goal of a pH of 7.5-7.55. She is to have salicylate levels every 2 hours until salicylate levels are dropping and less than 30. A second salicylate level was performed and was 31.3. I did speak with the hospitalist about the patient. They will see the patient for further inpatient evaluation. Impression & Plan Salicylate overdose, Suicide attempt, Acute hyperglycemia Discharge Plan Visit Data Chief Complaint: Overdose (Accidental) Stated Complaint: NAUSEA,DIZZINESS,TIREDNESS - ASPIRIN OD? ED Provider: Parmjit Marcelino Discharge Problem: Salicylate overdose, Suicide attempt, Acute hyperglycemia Patient Disposition: Admitted As Inpatient Forms Stand Alone Forms: My [facility] Prescriptions Prescriptions: No Action Toshiaagledwin Ruiz U-100 Insulin 100 unit/mL (3 mL) insulin pen 20 units SQ DAILY@16 PRN (Reason: Novolog Pump Failure) Rx Instructions: If pump fails insulin aspart U-100 100 unit/mL solution 100 unit continuous subcutaneous infusion CONTINOUS 90 Days Qty: 90 1RF Rx Instructions: TDD 60 units/day propranolol [Inderal LA] 60 mg capsule,extended release 24 hr 60 mg PO HS Qty: 30 5RF Botox 200 unit recon soln See Rx Instructions IM .COMPLEX Qty: 1 3RF Rx Instructions: 155 UNITS IM IN THE FACE AND NECK MUSCLES EVERY 12 WEEKS PER MIGRAINE PROTOCOL (DME) Aerochamber MV spacer See Rx Instructions .ROUTE .MEDSUPPLY Qty: 1 0RF Rx Instructions: As directed hydroxyzine HCl 25 mg tablet 25 mg PO DAILY PRN (Reason: Anxiety) (DME) Ketostix Strip See Rx Instructions .ROUTE .MEDSUPPLY Qty: 100 2RF Rx Instructions: As directed to check ketones Trueplus glucagon 3 mg/actuation spray,non-aerosol 3 mg intranasal PRN Qty: 2 3RF (DME) insulin syringe-needle U-100 [BD Insulin Syringe] 0.3 mL 29 gauge x 1/2" syringe See Rx Instructions .Route Qty: 100 3RF Rx Instructions: As directed; 4x per day in case of pump failure propranolol 10 mg tablet 10 mg PO BID PRN (Reason: palpitations) Qty: 60 2RF sertraline [Zoloft] 50 mg tablet 50 mg PO DAILY (DME) comp.stocking,thigh,short,smal Misc See Rx Instructions .ROUTE .MEDSUPPLY Qty: 2 1RF Rx Instructions: As directed vitamin E (dl, acetate) 45 mg (100 unit) capsule 45 mg PO QAM cholecalciferol (vitamin D3) 50 mcg (2,000 unit) capsule 100 mcg PO DAILY prenat.vits,mathieu,hcg-eddw-tivhk Tablet 1 tab PO QAM (DME) insulin pump controller Misc MISCELLANEOUS sodium chloride 1 gram tablet 1,000 mg PO BID PRN (Reason: orthostatic hypotension) bupropion HCl 300 mg tablet extended release 24 hr 300 mg PO DAILY trazodone 50 mg tablet 50 mg PO HS fluticasone propionate [Flovent HFA] 220 mcg/actuation HFA aerosol inhaler 220 mcg INHALATION QAM pantoprazole 40 mg tablet,delayed release (DR/EC) 40 mg PO BID omega 1-phv-lds-fish oil [Fish Oil] 1,000 mg (120 mg-180 mg) Capsule 1 cap PO HS Rexulti 1 mg tablet 1 mg PO QAM Linzess 72 mcg capsule 72 mcg PO DAILY PRN (Reason: Constipation) Referrals Referrals: PCP,NO [Physician] -
[2022-01-27 07:25] LABS: Basophils # (auto) 0.11 K/uL (0-0.2); Basophils % (auto) 1.3 %; Eosinophils % (auto) 2.4 %; Hematocrit (blood only) 38.9 % (34.1-44.9); Hemoglobin 13.8 g/dl (12.0-16.0); Immature Granulocytes # (auto) 0.04 K/uL (0.00-0.02); Immature Granulocytes % (auto) 0.5 %; Lymphocytes # (auto) 2.72 K/uL (1.2-3.4); Lymphocytes % (auto) 32.7 %; Mean Corpuscular Hemoglobin 31.3 pg (25.0-34.0); Mean Corpuscular Hgb Conc 35.5 g/dL (32.0-36.0); Mean Corpuscular Volume 88.2 fL (80.0-100.0); Mean Platelet Volume 11.7 fL (9.4-12.3); Monocytes # (auto) 0.73 K/uL (0.24-0.82); Monocytes % (auto) 8.8 %; Neutrophils # (auto) 4.52 K/uL (1.4-6.5); Neutrophils % (auto) 54.3 %; Platelet Count 391 K/uL (130-400); RDW Coefficient of Variation 11.1 % (11.5-14.5); RDW Standard Deviation 35.9 fL (36.4-46.3); Red Blood Count 4.41 M/uL (3.93-5.22); White Blood Count 8.32 K/ul (4.8-10.8)
[2022-01-27 08:07] LABS: Appearance Urine Clear (Clear); Bacteria Urine Automated Negative (Negative); Bilirubin Urine Negative (Negative); Blood Urine 2+ (Negative); Cast Urine Automated 0 /lpf (0-5); Color Urine Yellow; Glucose Urine UA 3+ (Negative); Ketones Urine Trace (Negative); Leukocyte Esterase Urine Negative (Negative); Nitrite Urine Negative (Negative); Protein Urine Negative (Negative); RBC Urine Automated 0-4 /hpf (0-4); Specific Gravity Urine 1.017 (1.000-1.030); Urobilinogen Urine Negative (Negative)
[2022-01-27 08:09] LABS: Alanine Aminotransferase 10 U/L (7-52); Albumin Globulin Ratio 1.3 (0.9-2); Albumin Level 4.4 gm/dl (3.4-5.0); Alkaline Phosphatase 88 U/L (34-104); Anion Gap 8 (3-11); Bilirubin,Total 0.5 mg/dl (0.2-1.0); Blood Urea Nitrogen 12 mg/dl (6-23); Calcium 9.5 mg/dl (8.5-10.1); Carbon Dioxide 27 mmol/L (21-32); Chloride 96 mmol/L (98-107); Creatinine Clr Calc Pharmacy 91.2 ml/min; Est GFR (African American) 117.1 ml/min; Globulin 3.4 gm/dl (2.5-4.0); Glucose 445 mg/dl (70-99(Fasting)); Sodium 131 mmol/L (136-145); Total Protein 7.8 gm/dl (6.0-8.3)
[2022-01-27 08:31] LABS: Amphetamines+Metham, Urine Neg (Neg); Barbiturates, Urine Neg (Neg); Benzodiazepine, Urine Neg (Neg); Cocaine, Urine Neg (Neg); MDMA (Ecstacy), Urine Neg (Neg); Methadone, Urine Neg (Neg); Opiate, Urine Neg (Neg); Phencyclidine, Urine Neg (Neg)
[2022-01-27] MEDS ORDERED: NovoLIN-R INSULIN PER UNIT CHARGE SC STA (08:31)
[2022-01-27 09:05] LABS: Potassium 5.1 mmol/L (3.5-5.1)
[2022-01-27] MEDS ORDERED: SODIUM BICARBONATE 8.4% 150 MEQ, POTASSIUM CHLORIDE 40 MEQ in DEXTROSE 5% 1,000 ML IV SCH (09:30)
[2022-01-27] MEDS ORDERED: SODIUM BICARB 8.4% INJ 50 MEQ/50 ML SYR IV ONE (09:30)
[2022-01-27] MEDS ORDERED: linaCLOtide 72 MCG CAPSULE PO PRN (11:04)
[2022-01-27] MEDS ORDERED: hydrOXYzine HCl 25 MG TAB PO PRN (11:04)
[2022-01-27] MEDS ORDERED: SODIUM CHLORIDE 1 GM TABLET PO PRN (11:04)
[2022-01-27] MEDS ORDERED: PHARMACY GLYCEMIC MGMT CONSULT PRN (11:06)
[2022-01-27] MEDS ORDERED: NovoLIN-R INSULIN PER UNIT CHARGE IV STA (12:02)
--- NOTE | 2022-01-27 12:13 | History & Physical Report ---
Date of Service January 27, 2022 Assessment & Plan (1) Salicylate overdose: Plan: Suicide attempt in a 26 yo person with salicylate overdose. Patient took close to 10 grams of aspirin. Patient is out of the window for activated charcoal. Patient will be admitted to PCU. Have a one to one, consult psych. called poison control, placed on bicarb, and check salicylate levels. If below 30, ok to stop bicarb drip. will continue home protonix. will monitor headache and tinnitus. (2) POTS (postural orthostatic tachycardia syndrome): Plan: Patient on propranolol, their systolic BP is normally in the 80 (3) Suicide attempt: Plan: As noted above. (4) Depression: Plan: consulted psych. resume home meds (5) Borderline personality disorder: Plan: resume home meds (6) Chronic migraine: Plan: on propranolol, appears controlled. will monitor for symptoms History of Present Illness Chief Complaint: suicide ideation Primary Care Provider: Tamara Palomo PA-C Bon is a pleasant 26 yo person who comes to the ER after sttaing that they ingested close to 10 grams of aspirin. They reported that they took this sometime between 1 am and 4 am. Arrived at the ED around 6:40 am for help. Currently not having any symptoms. Allergies Allergy/AdvReac Type Severity Reaction Status Date / Time gluten Allergy Severe CELIAC'S Verified 01/27/22 07:18 DISEASE Penicillins Allergy Severe ANAPHYLAXIS Verified 01/27/22 07:18 shellfish derived Allergy Severe ANAPHYLAXIS Verified 01/27/22 07:18 apple Allergy Intermediate THROAT Verified 01/27/22 07:18 SWELLS house dust Allergy Intermediate Hives Verified 01/27/22 07:18 oxcarbazepine Allergy Intermediate Rash,hives Verified 01/27/22 07:18 and itchiness. lactose AdvReac Intermediate Gatrointestinal Verified 01/27/22 07:18 Upset sumatriptan [From Imitrex] AdvReac Intermediate INTENSIFIES Verified 01/27/22 07:18 HEADACHE Home Medications Medication Instructions Recorded Confirmed Type insulin glargine 100 unit/mL (3 20 units subcut DAILY@16 PRN 11/26/18 01/27/22 History mL) subcutaneous pen (Basaglar Novolog Pump Failure KwikPen U-100 Insulin) inhalational spacing device #1 ea 03/27/19 01/16/22 Rx (Aerochamber MV spacer) insulin pump controller 12/27/19 01/16/22 History comp.stocking,thigh,short,smal #2 ea 09/21/20 01/16/22 Rx fluticasone propionate 220 220 mcg inhalation QAM 02/12/21 01/27/22 History mcg/actuation HFA aerosol inhaler (Flovent HFA) trazodone 50 mg tablet 50 mg PO HS 02/12/21 01/27/22 History hydroxyzine HCl 25 mg tablet 25 mg PO DAILY PRN Anxiety 05/12/21 01/27/22 History cholecalciferol (vitamin D3) 50 100 mcg PO DAILY 07/04/21 01/27/22 History mcg (2,000 unit) capsule prenat.vits,mathieu,pcl-ygrj-hqmtq 1 tab PO QAM 07/04/21 01/27/22 History vitamin E (dl, acetate) 45 mg (100 45 mg PO QAM 07/04/21 01/27/22 History unit) capsule sodium chloride 1 gram tablet 1,000 mg PO BID PRN orthostatic 07/20/21 01/27/22 History hypotension acetone (urine) test (Ketostix #100 ea 08/09/21 01/16/22 Rx strips) glucagon 3 mg/actuation nasal spray 3 mg intranasal PRN hypoglycemia 08/09/21 01/27/22 Rx #2 ea insulin syringe-needle U-100 0.3 #100 ea 08/09/21 01/16/22 Rx mL 29 gauge x 1/2" (BD Insulin Syringe) insulin aspart U-100 100 unit/mL 100 unit continuous subcutaneous 09/08/21 01/27/22 Rx subcutaneous solution infusion CONTINOUS 90 days #90 mL brexpiprazole 1 mg tablet (Rexulti) 1 mg PO QAM 11/04/21 01/27/22 History linaclotide 72 mcg capsule 72 mcg PO DAILY PRN Constipation 11/04/21 01/27/22 History (Linzess) omega 6-apt-jfm-fish oil 1,000 mg 1 cap PO HS 11/04/21 01/27/22 History (120 mg-180 mg) capsule (Fish Oil) pantoprazole 40 mg tablet,delayed 40 mg PO BID 07/02/22 09/24/22 History release propranolol 60 mg capsule,24 60 mg PO HS #30 caps 11/22/21 01/27/22 Rx hr,extended release (Inderal LA) sertraline 50 mg tablet (Zoloft) 50 mg PO DAILY 12/12/21 01/27/22 History propranolol 10 mg tablet 10 mg PO BID PRN palpitations #60 01/16/22 01/27/22 Rx tabs onabotulinumtoxinA 200 unit See Rx Instructions IM .COMPLEX #1 01/17/22 01/27/22 Rx solution for injection (Botox) ea bupropion HCl 300 mg 24 hr tablet, 300 mg PO DAILY 01/27/22 01/27/22 History extended release Past Med/Surg History Medical History Acid reflux disease (~2013) Allergic rhinitis Asthma . Borderline personality disorder . Celiac disease Chronic joint pain Depression Depression with suicidal ideation Diabetic gastroparesis associated with type 1 diabetes mellitus (~2016) DKA (diabetic ketoacidoses) Generalized anxiety disorder Gilbert's syndrome Intentional aspirin overdose Intentional overdose Irritable bowel syndrome with constipation Lumbar radiculopathy Migraines Osteopenia Osteoporosis POTS (postural orthostatic tachycardia syndrome) Type I diabetes mellitus (~2013) Followed by Endocrinology Surgical History History of cataract surgery bilateral History of colonoscopy History of esophagogastroduodenoscopy (EGD) History of strabismus surgery right Family History Mother Alcohol abuse Adult celiac disease Osteoporosis Seizure Celiac disease Father Skin cancer squamous cell Drug abuse Alcohol abuse Anxiety Seizure Grandfather Alcohol abuse Uncle Drug abuse Alcohol abuse Brother Drug abuse Unknown Cancer Grandmother Diabetes Colorectal cancer Celiac disease Grandmother Type 1 diabetes Other Bipolar 1 disorder No family history of adverse response to anesthesia Denies family history of Ovarian cancer Prostate cancer Myocardial infarction Breast cancer Lung cancer Hypertension Social History Smoking Status: Never smoker Tobacco Type: Cigarettes Age Started Using Tobacco: 18; Age Quit Using Tobacco: 20; Cigarettes Per Day: 1 per month; Second Hand Exposure: Yes; Do You Dip or Chew Tobacco: No; Hx Alcohol Use: No Hx Substance Use: No Preferred Language: Yakut Communication Ability: Effective Visual Impairment: No Limitations Hearing Ability: Normal Consumer Educator Required: No Beliefs That Will Affect Care: None marital status: Single Current Living Situation: Other Current Living Situation Comment: roommates current occupational status: employed current occupation: [employer] Feels Safe at Home: Yes Safety Concerns: Feels Safe At This Time Childhood Exposure to Second-Hand Smoke: Yes caffeine: Yes Dental Care, Regularly: Yes Physical Activity Frequency: 3-4 Times per Week Physical Activity Frequency Comment: walks Seatbelt Use: always Sunscreen Use: Yes (when in the sun for an extended time) Assistive Devices: Glasses Review of Systems Constitutional: no fever Eyes: no blind spots Ear, Nose, Mouth, Throat: no ear pain Respiratory: no cough Cardiovascular: no chest pain Gastrointestinal: no abdominal pain Genitourinary: no dysuria Musculoskeletal: no back pain Integumentary: no acne Neurologic: no gait abnormality Psychiatric: no behavioral changes Endocrine: no fatigue Hematologic / Lymphatic: no easy bleeding Allergy / Immunological: no GI upset with certain foods Physical Exam Constitutional: WD/WN, vitals as above Eyes: PERRL, conjunctivae normal, anicteric sclerae ENMT: external ear and nose normal, oropharynx normal Neck: trachea midline, no thyromegaly Respiratory: normal respiratory effort, lungs clear to auscultation Cardiovascular: RRR, no murmur, no edema Gastrointestinal (Abdomen): normal bowel sounds, soft, nontender, no hepatosplenomegaly Musculoskeletal: no cyanosis or clubbing, extremities motor strength 5/5 Skin: no rashes, warm and dry Neurologic: PERRL, EOMI, accommodation nl, no face palsy, no dysarthria Psychiatric: A+Ox3, euthymic affect Lymphatic: no cervical or axillary lymphadenopathy Results & Data Results & Data ([facility]) Vital Signs (Past 12 Hours) Vital Signs Temp Pulse Pulse Resp BP BP Pulse Ox 01/27/22 10:30 78 21 104/72 98 01/27/22 10:00 86 16 97 01/27/22 09:30 77 28 H 97 01/27/22 09:30 100/63 01/27/22 09:01 83 19 99 01/27/22 09:01 93/67 L 01/27/22 09:00 79 12 99 01/27/22 08:30 79 15 100 01/27/22 08:00 71 21 98 09/24/22 08:00 102/69 01/27/22 07:30 74 18 99 01/27/22 07:30 109/68 01/27/22 07:05 67 24 100 01/27/22 07:05 103/76 01/27/22 07:00 68 23 01/27/22 06:59 68 21 01/27/22 09:00 84 18 93/67 L 97 01/27/22 07:09 85 16 103/76 100 01/27/22 07:01 01/27/22 06:28 36.6 C 71 20 109/74 98 O2 Del Method 01/27/22 10:30 01/27/22 10:00 01/27/22 09:30 01/27/22 09:30 01/27/22 09:01 01/27/22 09:01 01/27/22 09:00 01/27/22 08:30 01/27/22 08:00 01/27/22 08:00 01/27/22 07:30 01/27/22 07:30 01/27/22 07:05 01/27/22 07:05 01/27/22 07:00 01/27/22 06:59 01/27/22 09:00 Room Air 01/27/22 07:09 Room Air 01/27/22 07:01 Room Air 01/27/22 06:28 Room Air PG Care Time/CCT Total # of Minutes Spent Total Time Spent with Patient: Total time spent is greater than 50% in coordination of care (as documented) at patient's floor/unit and/or counseling patient: Coding Level of Care Code 30314 Initial Inpt Care Lvl 3 Diagnoses Salicylate overdose T39.091A POTS (postural orthostatic tachycardia syndrome) I49.8 Suicide attempt T14.91XA Depression F32.9 Borderline personality disorder F60.3 Chronic migraine G43.709
[2022-01-27 12:43] LABS: Base Excess VBG 8.2 mEq/L; HCO3 VBG 33 mmol/L; Oxygen Saturation VBG < 60.0 %; PCO2 VBG 44 mmHg (38-50); PO2 VBG 19 mmHg; pH VBG 7.48 (7.36-7.41)
--- NOTE | 2022-01-27 12:46 | Communication Note ---
Date of Service: January 27, 2022 consult received/reviewed. Patient is well known to me from various ED visits/inpatient stays and is a chronic high risk of suicide. Please continue 1- on-1 on medical floor. Patient is unable to leave AMA and should likely be 302 if unwilling to sign 201. They would need to be off of insulin pump with stable sugars prior to transfer to an inpatient psychiatry unit when nearing medical clearance.
[2022-01-27] MEDS ORDERED: LANTUS PER UNIT CHARGE SQ SCH (15:00)
[2022-01-27 15:20] LABS: Hematocrit (blood only) 36.5 % (34.1-44.9); Hemoglobin 13.1 g/dl (12.0-16.0)
[2022-01-27 15:21] LABS: Base Excess VBG 9.7 mEq/L; HCO3 VBG 34 mmol/L; Oxygen Saturation VBG < 60.0 %; PCO2 VBG 45 mmHg (38-50); PO2 VBG 25 mmHg; pH VBG 7.49 (7.36-7.41)
[2022-01-27 16:02] LABS: BUN Creatinine Ratio 17.3 (10-20); Calcium 8.4 mg/dl (8.5-10.1); Creatinine Clr Calc Pharmacy 97.3 ml/min; Est GFR (African American) 126.6 ml/min; Est GFR (Non-African American) 109.2 ml/min; Potassium 3.6 mmol/L (3.5-5.1)
[2022-01-27] MEDS: INSULIN ASPART PER UNIT SC SCH ×2 (17:46→20:41)
[2022-01-27] MEDS: traZODone HCL 50 MG TAB PO SCH (20:40)
[2022-01-27] MEDS: PANTOprazole 40 MG TAB PO SCH (20:41)
[2022-01-27] MEDS: OMEGA-3 (PURIFIED FISH OIL) 1 GM CAP PO SCH (20:41)
[2022-01-27] MEDS: PROPRANOLOL HCL 60 MG LA CAP PO SCH (20:41)
--- NOTE | 2022-01-27 23:04 | Electrocardiogram Report ---
Test Reason : Blood Pressure : / mmHG Vent. Rate : 070 BPM Atrial Rate : 070 BPM P-R Int : 124 ms QRS Dur : 074 ms QT Int : 410 ms P-R-T Axes : 074 079 064 degrees QTc Int : 442 ms Normal sinus rhythm Possible Left atrial enlargement Borderline ECG When compared with ECG of 04-NOV-2021 21:31, No significant change was found Confirmed by Marcos Piña ([id number]) on 01/27/2022 11:04:21 PM Referred By: REFERRED SELF Confirmed By:Marcos Piña
[2022-01-28] MEDS: INSULIN ASPART PER UNIT SC SCH ×7 (00:07→21:53)
[2022-01-28 08:00] LABS: Base Excess VBG -0.2 mEq/L; HCO3 VBG 25 mmol/L; Oxygen Saturation VBG 83.1 %; PCO2 VBG 41 mmHg (38-50); PO2 VBG 51 mmHg; pH VBG 7.39 (7.36-7.41)
[2022-01-28 08:01] LABS: Hematocrit (blood only) 34.9 % (34.1-44.9); Hemoglobin 12.1 g/dl (12.0-16.0); Mean Corpuscular Hgb Conc 34.7 g/dL (32.0-36.0); Mean Corpuscular Volume 89.5 fL (80.0-100.0); Platelet Count 294 K/uL (130-400); RDW Coefficient of Variation 11.5 % (11.5-14.5); RDW Standard Deviation 37.1 fL (36.4-46.3); White Blood Count 7.32 K/ul (4.8-10.8)
[2022-01-28] MEDS: PANTOprazole 40 MG TAB PO SCH ×2 (08:23→21:50)
[2022-01-28] MEDS: buPROPion XL 300 MG TABCR PO SCH (08:23)
[2022-01-28] MEDS: PRENATAL VITAMIN 1 TAB PO SCH (08:23)
[2022-01-28] MEDS: FLUTICASONE FUROATE 200MCG 14 PUFFS/INHALER INH SCH (08:23)
[2022-01-28] MEDS: SERTRALINE HCL 50 MG TABLET PO SCH (08:23)
[2022-01-28] MEDS: CHOLECALCIFEROL 1,000 UNITS 25 MCG TAB PO SCH (08:23)
[2022-01-28] MEDS: TOCOPHERYL, DL-ALPHA 100 UNITS CAP PO SCH (08:23)
[2022-01-28 09:11] LABS: BUN Creatinine Ratio 18.8 (10-20); Est GFR (African American) 141.7 ml/min; Est GFR (Non-African American) 122.3 ml/min; Potassium 3.6 mmol/L (3.5-5.1)
[2022-01-28] MEDS: BREXPIPRAZOLE 1 MG PO SCH (10:01)
--- NOTE | 2022-01-28 13:15 | Psychiatric Consultation ---
Date of Consultation January 28, 2022 Impression / Recommendations Impression 26 yo female with chronic SI/SIB admit s/p 2nd ASA OD, this gesture more significant than October 2021. (1) Depression: (2) Borderline personality disorder: (3) Diabetic gastroparesis associated with type 1 diabetes mellitus: (4) Salicylate overdose: Plan continue current meds, must remain off insulin pump for medical clearance for inpatient psych, patient states she would sign 201 at this point continue 1 on 1 Psych History Identifying Data 26 yo non-binary "J" is well known to our service from multiple ED visits/inpatient psychiatric admissions. Chronically hospitalized for SI and high risk given limited supports, access to insulin pump, etc. Last admission to our unit was just 10/22/21 for a lesser ASA OD as a self-harm gesture. Chief Complaint "do you have a bed or not", no eye contact, otherwise limited conversation History of Present Illness admitted yesterday for unknown amount of ASA (possibly 10 gms), salicylate level 31.3. Won't elaborate other than confirm they were taking medications as prescribed, perhaps not engaged regularly with therapy since other therapist left psych clinic. Insulin pump is out and eating/drinking. gluc checks "high but not horrible." Past Psychiatric History Previous Psych History: Previous Psych History: bipolar vs borderline personality disorder (identifies with latter, mood dx when younger) Outpatient Services: FARHANA Osorio, therapist Rochelle and NAVDEEP Alfred,PhD at psych clinic. Previous Psych Admissions: During 2015 hospitalization here, she was diagnosed with bipolar 1, anxiety NOS with symptoms of NESHA, panic, and PTSD that did not meet full criteria for anyone condition, and narcotic and cannabis abuse in remission. she was later di agnosed with borderline personality disorder, NESHA, depression, and eating disorder NOS. Current Psychiatric Diagnosis: BPD, NESHA, eating disorder, unspecified and depression Outpatient Services: NAVDEEP Kerns, PhD at the [facility]. Therapist, Cary Levin at the [facility]. ABHISHEK. FARHANA at the [facility]: Ora Previous Psych Admissions: Previous Psych Admissions: [facility] 10/25, 07/25, [facility] for 3 days in 2015 for SI. 11/2019 for depression, SI, and SIB. 12/25 2011 in [place] for suicide attempt by toxic ingestion. Do You Have Access To A Gun?: No History of Previous Suicide Attempt: Yes Describe Attempts in the Past: Overdose 4-5x (first age 15, last admission was Zofran ingestion, now ASA). Medication Trials: Lamotrigine - started here in 2014 Zolpidem Geodon Lunesta Depakote Trileptal -allergic Lorazepam -as needed for anxiety [place] Lamotrigine Sertraline Hydroxyzine for sleep Buspar Current Psychiatric Diagnosis: BPD; NESHA; Insomnia; MDD Describe Attempts in the Past: OD attempts in past; aborted attempt on 02/05 Current Psychiatric Diagnosis: BPD Do You Have Access To A Gun?: Yes (landlord/housemate has firearm) Allergies Allergy/AdvReac Type Severity Reaction Status Date / Time gluten Allergy Severe CELIAC'S Verified 01/27/22 07:18 DISEASE Penicillins Allergy Severe ANAPHYLAXIS Verified 01/27/22 07:18 shellfish derived Allergy Severe ANAPHYLAXIS Verified 01/27/22 07:18 apple Allergy Intermediate THROAT Verified 01/27/22 07:18 SWELLS house dust Allergy Intermediate Hives Verified 01/27/22 07:18 oxcarbazepine Allergy Intermediate Rash,hives Verified 01/27/22 07:18 and itchiness. lactose AdvReac Intermediate Gatrointestinal Verified 01/27/22 07:18 Upset sumatriptan [From Imitrex] AdvReac Intermediate INTENSIFIES Verified 01/27/22 07:18 HEADACHE Home Medications Medication Instructions Recorded Confirmed Type insulin glargine 100 unit/mL (3 20 units subcut DAILY@16 PRN 11/26/18 01/27/22 History mL) subcutaneous pen (Basaglar Novolog Pump Failure KwikPen U-100 Insulin) inhalational spacing device #1 ea 03/27/19 01/16/22 Rx (Aerochamber MV spacer) insulin pump controller 12/27/19 01/16/22 History comp.stocking,thigh,short,smal #2 ea 09/21/20 01/16/22 Rx fluticasone propionate 220 220 mcg inhalation QAM 02/12/21 01/27/22 History mcg/actuation HFA aerosol inhaler (Flovent HFA) trazodone 50 mg tablet 50 mg PO HS 02/12/21 01/27/22 History hydroxyzine HCl 25 mg tablet 25 mg PO DAILY PRN Anxiety 05/12/21 01/27/22 History cholecalciferol (vitamin D3) 50 100 mcg PO DAILY 07/04/21 01/27/22 History mcg (2,000 unit) capsule prenat.vits,mathieu,wcl-ejru-dtsad 1 tab PO QAM 07/04/21 01/27/22 History vitamin E (dl, acetate) 45 mg (100 45 mg PO QAM 07/04/21 01/27/22 History unit) capsule sodium chloride 1 gram tablet 1,000 mg PO BID PRN orthostatic 07/20/21 01/27/22 History hypotension acetone (urine) test (Ketostix #100 ea 08/09/21 01/16/22 Rx strips) glucagon 3 mg/actuation nasal spray 3 mg intranasal PRN hypoglycemia 08/09/21 01/27/22 Rx #2 ea insulin syringe-needle U-100 0.3 #100 ea 08/09/21 01/16/22 Rx mL 29 gauge x 1/2" (BD Insulin Syringe) insulin aspart U-100 100 unit/mL 100 unit continuous subcutaneous 09/08/21 01/27/22 Rx subcutaneous solution infusion CONTINOUS 90 days #90 mL brexpiprazole 1 mg tablet (Rexulti) 1 mg PO QAM 11/04/21 01/27/22 History linaclotide 72 mcg capsule 72 mcg PO DAILY PRN Constipation 11/04/21 01/27/22 History (Linzess) omega 5-vla-upg-fish oil 1,000 mg 1 cap PO HS 11/04/21 01/27/22 History (120 mg-180 mg) capsule (Fish Oil) pantoprazole 40 mg tablet,delayed 40 mg PO BID 11/04/21 01/27/22 History release propranolol 60 mg capsule,24 60 mg PO HS #30 caps 11/22/21 01/27/22 Rx hr,extended release (Inderal LA) sertraline 50 mg tablet (Zoloft) 50 mg PO DAILY 12/12/21 01/27/22 History propranolol 10 mg tablet 10 mg PO BID PRN palpitations #60 01/16/22 01/27/22 Rx tabs onabotulinumtoxinA 200 unit See Rx Instructions IM .COMPLEX #1 01/17/22 01/27/22 Rx solution for injection (Botox) ea bupropion HCl 300 mg 24 hr tablet, 300 mg PO DAILY 01/27/22 01/27/22 History extended release Personal History Beliefs That Will Affect Care: None Patient History Medical History Acid reflux disease (~2013) Allergic rhinitis Asthma . Borderline personality disorder . Celiac disease Chronic joint pain Depression Depression with suicidal ideation Diabetic gastroparesis associated with type 1 diabetes mellitus (~2016) DKA (diabetic ketoacidoses) Generalized anxiety disorder Gilbert's syndrome Intentional aspirin overdose Intentional overdose Irritable bowel syndrome with constipation Lumbar radiculopathy Migraines Osteopenia Osteoporosis POTS (postural orthostatic tachycardia syndrome) Type I diabetes mellitus (~2013) Followed by Endocrinology Surgical History History of cataract surgery bilateral History of colonoscopy History of esophagogastroduodenoscopy (EGD) History of strabismus surgery right Family History Mother Alcohol abuse Adult celiac disease Osteoporosis Seizure Celiac disease Father Skin cancer squamous cell Drug abuse Alcohol abuse Anxiety Seizure Grandfather Alcohol abuse Uncle Drug abuse Alcohol abuse Brother Drug abuse Unknown Cancer Grandmother Diabetes Colorectal cancer Celiac disease Grandmother Type 1 diabetes Other Bipolar 1 disorder No family history of adverse response to anesthesia Denies family history of Ovarian cancer Prostate cancer Myocardial infarction Breast cancer Lung cancer Hypertension Social History (Updated 01/28/22 @ 13:11 by Mary Elizabeth MD) Smoking Status: Never smoker Tobacco Type: Cigarettes Age Started Using Tobacco: 18; Age Quit Using Tobacco: 20; Cigarettes Per Day: 1 per month; Second Hand Exposure: Yes; Do You Dip or Chew Tobacco: No; Hx Alcohol Use: No Hx Substance Use: No Preferred Language: American Communication Ability: Effective Visual Impairment: No Limitations Hearing Ability: Normal Cash Teller Required: No Beliefs That Will Affect Care: None marital status: Single Current Living Situation: Other Current Living Situation Comment: roommates current occupational status: employed 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 won't elaborate on SI, etc. Did not appear to be responding to internal stimuli Vital Signs (Past 24 Hours): Last Vital Signs Temp 37.0 C 01/28/22 10:51 Pulse 85 01/28/22 10:51 Resp 18 01/28/22 10:51 BP 93/59 L 01/28/22 10:51 Pulse Ox 95 01/28/22 10:51 O2 Del Method 01/28/22 10:51 Review of Systems Unobtainable due to mental health condition Results & Data (PSY) Laboratory Results Labs 01/27/22 01/27/22 01/27/22 06:56 06:56 06:56 WBC 8.32 RBC 4.41 Hgb 13.8 Hct 38.9 MCV 88.2 MCH 31.3 MCHC 35.5 RDW Std Deviation 35.9 L RDW Coeff of Keanu 11.1 L Plt Count 391 MPV 11.7 Immature Gran % (Auto) 0.5 Neut % (Auto) 54.3 Lymph % (Auto) 32.7 [place] % (Auto) 8.8 Eos % (Auto) 2.4 Baso % (Auto) 1.3 Neut # (Auto) 4.52 Lymph # (Auto) 2.72 [place] # (Auto) 0.73 Eos # (Auto) 0.20 Baso # (Auto) 0.11 Immature Gran # (Auto) 0.04 H VBG pH VBG pCO2 VBG pO2 VBG HCO3 VBG O2 Saturation VBG Base Excess Sodium 131 L Potassium TNP Chloride 96 L Carbon Dioxide 27 Anion Gap 8 BUN 12 Creatinine 0.80 Est Cr Clr Drug Dosing 91.2 Est GFR ( Amer) 117.1 Est GFR (Non-Af Amer) 101.0 BUN/Creatinine Ratio 15.0 Glucose 445 H* POC Glucose Calcium 9.5 Total Bilirubin 0.5 AST TNP ALT 10 Alkaline Phosphatase 88 Total Protein 7.8 Albumin 4.4 Globulin 3.4 Albumin/Globulin Ratio 1.3 TSH 3.678 Urine Color Urine Appearance Urine pH Ur Specific [place] Urine Protein Urine Glucose (UA) Urine Ketones Urine Blood Urine Nitrite Urine Bilirubin Urine Urobilinogen Ur Leukocyte Esterase Urine WBC (Auto) Urine RBC (Auto) U Hyaline Cast (Auto) U Epithel Cells (Auto) Urine Bacteria (Auto) POC Ur Test Salicylates Urine Opiates Screen Ur Methadone, Qual Acetaminophen Urine Barbiturates Ur Phencyclidine (PCP) U Amphetamin/Meth Scrn MDMA (Ecstasy) Screen U Benzodiazepines Scrn Ur Cocaine Metabolite U Marijuana (THC) Screen Ethyl Alcohol mg/dL SARS-CoV-2, RNA, NAAT 01/27/22 01/27/22 01/27/22 06:56 06:56 06:56 WBC RBC Hgb Hct MCV MCH MCHC RDW Std Deviation RDW Coeff of Keanu Plt Count MPV Immature Gran % (Auto) Neut % (Auto) Lymph % (Auto) [place] % (Auto) Eos % (Auto) Baso % (Auto) Neut # (Auto) Lymph # (Auto) [place] # (Auto) Eos # (Auto) Baso # (Auto) Immature Gran # (Auto) VBG pH VBG pCO2 VBG pO2 VBG HCO3 VBG O2 Saturation VBG Base Excess Sodium Potassium Chloride Carbon Dioxide Anion Gap BUN Creatinine Est Cr Clr Drug Dosing Est GFR ( Amer) Est GFR (Non-Af Amer) BUN/Creatinine Ratio Glucose POC Glucose Calcium Total Bilirubin AST ALT Alkaline Phosphatase Total Protein Albumin Globulin Albumin/Globulin Ratio TSH Urine Color Urine Appearance Urine pH Ur Specific [place] Urine Protein Urine Glucose (UA) Urine Ketones Urine Blood Urine Nitrite Urine Bilirubin Urine Urobilinogen Ur Leukocyte Esterase Urine WBC (Auto) Urine RBC (Auto) U Hyaline Cast (Auto) U Epithel Cells (Auto) Urine Bacteria (Auto) POC Ur Test Salicylates 32.9 H* Urine Opiates Screen Ur Methadone, Qual Acetaminophen < 3 L Urine Barbiturates Ur Phencyclidine (PCP) U Amphetamin/Meth Scrn MDMA (Ecstasy) Screen U Benzodiazepines Scrn Ur Cocaine Metabolite U Marijuana (THC) Screen Ethyl Alcohol mg/dL < 10.0 SARS-CoV-2, RNA, NAAT 01/27/22 01/27/22 01/27/22 07:46 07:46 07:46 WBC RBC Hgb Hct MCV MCH MCHC RDW Std Deviation RDW Coeff of Keanu Plt Count MPV Immature Gran % (Auto) Neut % (Auto) Lymph % (Auto) [place] % (Auto) Eos % (Auto) Baso % (Auto) Neut # (Auto) Lymph # (Auto) [place] # (Auto) Eos # (Auto) Baso # (Auto) Immature Gran # (Auto) VBG pH VBG pCO2 VBG pO2 VBG HCO3 VBG O2 Saturation VBG Base Excess Sodium Potassium Chloride Carbon Dioxide Anion Gap BUN Creatinine Est Cr Clr Drug Dosing Est GFR ( Amer) Est GFR (Non-Af Amer) BUN/Creatinine Ratio Glucose POC Glucose Calcium Total Bilirubin AST ALT Alkaline Phosphatase Total Protein Albumin Globulin Albumin/Globulin Ratio TSH Urine Color Yellow Urine Appearance Clear Urine pH 7.0 Ur Specific [place] 1.017 Urine Protein Negative Urine Glucose (UA) 3+ H Urine Ketones Trace H Urine Blood 2+ H Urine Nitrite Negative Urine Bilirubin Negative Urine Urobilinogen Negative Ur Leukocyte Esterase Negative Urine WBC (Auto) 1-5 Urine RBC (Auto) 0-4 U Hyaline Cast (Auto) 0 U Epithel Cells (Auto) 10-20 H Urine Bacteria (Auto) Negative POC Ur Test NEG Salicylates Urine Opiates Screen Neg Ur Methadone, Qual Neg Acetaminophen Urine Barbiturates Neg Ur Phencyclidine (PCP) Neg U Amphetamin/Meth Scrn Neg MDMA (Ecstasy) Screen Neg U Benzodiazepines Scrn Neg Ur Cocaine Metabolite Neg U Marijuana (THC) Screen Neg Ethyl Alcohol mg/dL SARS-CoV-2, RNA, NAAT 01/27/22 01/27/22 01/27/22 08:25 09:39 10:17 WBC RBC Hgb Hct MCV MCH MCHC RDW Std Deviation RDW Coeff of Keanu Plt Count MPV Immature Gran % (Auto) Neut % (Auto) Lymph % (Auto) [place] % (Auto) Eos % (Auto) Baso % (Auto) Neut # (Auto) Lymph # (Auto) [place] # (Auto) Eos # (Auto) Baso # (Auto) Immature Gran # (Auto) VBG pH VBG pCO2 VBG pO2 VBG HCO3 VBG O2 Saturation VBG Base Excess Sodium Potassium 5.1 Chloride Carbon Dioxide Anion Gap BUN Creatinine Est Cr Clr Drug Dosing Est GFR ( Amer) Est GFR (Non-Af Amer) BUN/Creatinine Ratio Glucose POC Glucose Calcium Total Bilirubin AST 13 ALT Alkaline Phosphatase Total Protein Albumin Globulin Albumin/Globulin Ratio TSH Urine Color Urine Appearance Urine pH Ur Specific [place] Urine Protein Urine Glucose (UA) Urine Ketones Urine Blood Urine Nitrite Urine Bilirubin Urine Urobilinogen Ur Leukocyte Esterase Urine WBC (Auto) Urine RBC (Auto) U Hyaline Cast (Auto) U Epithel Cells (Auto) Urine Bacteria (Auto) POC Ur Test Salicylates 31.3 H* Urine Opiates Screen Ur Methadone, Qual Acetaminophen Urine Barbiturates Ur Phencyclidine (PCP) U Amphetamin/Meth Scrn MDMA (Ecstasy) Screen U Benzodiazepines Scrn Ur Cocaine Metabolite U Marijuana (THC) Screen Ethyl Alcohol mg/dL SARS-CoV-2, RNA, NAAT NEGATIVE 01/27/22 01/27/22 01/27/22 11:47 12:20 12:20 WBC RBC Hgb Hct MCV MCH MCHC RDW Std Deviation RDW Coeff of Keanu Plt Count MPV Immature Gran % (Auto) Neut % (Auto) Lymph % (Auto) [place] % (Auto) Eos % (Auto) Baso % (Auto) Neut # (Auto) Lymph # (Auto) [place] # (Auto) Eos # (Auto) Baso # (Auto) Immature Gran # (Auto) VBG pH Cancelled VBG pCO2 VBG pO2 VBG HCO3 VBG O2 Saturation VBG Base Excess Sodium Potassium Chloride Carbon Dioxide Anion Gap BUN Creatinine Est Cr Clr Drug Dosing Est GFR ( Amer) Est GFR (Non-Af Amer) BUN/Creatinine Ratio Glucose POC Glucose 404 H* Calcium Total Bilirubin AST ALT Alkaline Phosphatase Total Protein Albumin Globulin Albumin/Globulin Ratio TSH Urine Color Urine Appearance Urine pH Ur Specific [place] Urine Protein Urine Glucose (UA) Urine Ketones Urine Blood Urine Nitrite Urine Bilirubin Urine Urobilinogen Ur Leukocyte Esterase Urine WBC (Auto) Urine RBC (Auto) U Hyaline Cast (Auto) U Epithel Cells (Auto) Urine Bacteria (Auto) POC Ur Test Salicylates 28.9 Urine Opiates Screen Ur Methadone, Qual Acetaminophen Urine Barbiturates Ur Phencyclidine (PCP) U Amphetamin/Meth Scrn MDMA (Ecstasy) Screen U Benzodiazepines Scrn Ur Cocaine Metabolite U Marijuana (THC) Screen Ethyl Alcohol mg/dL SARS-CoV-2, RNA, NAAT 01/27/22 01/27/22 01/27/22 12:20 12:20 13:32 WBC RBC Hgb Hct MCV MCH MCHC RDW Std Deviation RDW Coeff of Keanu Plt Count MPV Immature Gran % (Auto) Neut % (Auto) Lymph % (Auto) [place] % (Auto) Eos % (Auto) Baso % (Auto) Neut # (Auto) Lymph # (Auto) [place] # (Auto) Eos # (Auto) Baso # (Auto) Immature Gran # (Auto) VBG pH 7.48 H VBG pCO2 44 VBG pO2 19 VBG HCO3 33 VBG O2 Saturation < 60.0 VBG Base Excess 8.2 Sodium Potassium 3.8 D Chloride Carbon Dioxide Anion Gap BUN Creatinine Est Cr Clr Drug Dosing Est GFR ( Amer) Est GFR (Non-Af Amer) BUN/Creatinine Ratio Glucose POC Glucose 351 H* Calcium Total Bilirubin AST ALT Alkaline Phosphatase Total Protein Albumin Globulin Albumin/Globulin Ratio TSH Urine Color Urine Appearance Urine pH Ur Specific [place] Urine Protein Urine Glucose (UA) Urine Ketones Urine Blood Urine Nitrite Urine Bilirubin Urine Urobilinogen Ur Leukocyte Esterase Urine WBC (Auto) Urine RBC (Auto) U Hyaline Cast (Auto) U Epithel Cells (Auto) Urine Bacteria (Auto) POC Ur Test Salicylates Urine Opiates Screen Ur Methadone, Qual Acetaminophen Urine Barbiturates Ur Phencyclidine (PCP) U Amphetamin/Meth Scrn MDMA (Ecstasy) Screen U Benzodiazepines Scrn Ur Cocaine Metabolite U Marijuana (THC) Screen Ethyl Alcohol mg/dL SARS-CoV-2, RNA, NAAT 01/27/22 01/27/22 01/27/22 14:54 14:56 15:03 WBC RBC Hgb Hct MCV MCH MCHC RDW Std Deviation RDW Coeff of Keanu Plt Count MPV Immature Gran % (Auto) Neut % (Auto) Lymph % (Auto) [place] % (Auto) Eos % (Auto) Baso % (Auto) Neut # (Auto) Lymph # (Auto) [place] # (Auto) Eos # (Auto) Baso # (Auto) Immature Gran # (Auto) VBG pH VBG pCO2 VBG pO2 VBG HCO3 VBG O2 Saturation VBG Base Excess Sodium Potassium Chloride Carbon Dioxide Anion Gap BUN Creatinine Est Cr Clr Drug Dosing Est GFR ( Amer) Est GFR (Non-Af Amer) BUN/Creatinine Ratio Glucose POC Glucose 341 H* 334 H* Calcium Total Bilirubin AST ALT Alkaline Phosphatase Total Protein Albumin Globulin Albumin/Globulin Ratio TSH Urine Color Urine Appearance Urine pH Ur Specific [place] Urine Protein Urine Glucose (UA) Urine Ketones Urine Blood Urine Nitrite Urine Bilirubin Urine Urobilinogen Ur Leukocyte Esterase Urine WBC (Auto) Urine RBC (Auto) U Hyaline Cast (Auto) U Epithel Cells (Auto) Urine Bacteria (Auto) POC Ur Test Salicylates 19.8 Urine Opiates Screen Ur Methadone, Qual Acetaminophen Urine Barbiturates Ur Phencyclidine (PCP) U Amphetamin/Meth Scrn MDMA (Ecstasy) Screen U Benzodiazepines Scrn Ur Cocaine Metabolite U Marijuana (THC) Screen Ethyl Alcohol mg/dL SARS-CoV-2, RNA, NAAT 01/27/22 01/27/22 01/27/22 15:03 15:03 15:03 WBC RBC Hgb 13.1 Hct 36.5 MCV MCH MCHC RDW Std Deviation RDW Coeff of Keanu Plt Count MPV Immature Gran % (Auto) Neut % (Auto) Lymph % (Auto) [place] % (Auto) Eos % (Auto) Baso % (Auto) Neut # (Auto) Lymph # (Auto) [place] # (Auto) Eos # (Auto) Baso # (Auto) Immature Gran # (Auto) VBG pH 7.49 H VBG pCO2 45 VBG pO2 25 VBG HCO3 34 VBG O2 Saturation < 60.0 VBG Base Excess 9.7 Sodium 134 L Potassium 3.6 Chloride 96 L Carbon Dioxide 29 Anion Gap 9 BUN 13 Creatinine 0.75 Est Cr Clr Drug Dosing 97.3 Est GFR ( Amer) 126.6 Est GFR (Non-Af Amer) 109.2 BUN/Creatinine Ratio 17.3 Glucose 372 H* POC Glucose Calcium 8.4 L Total Bilirubin AST ALT Alkaline Phosphatase Total Protein Albumin Globulin Albumin/Globulin Ratio TSH Urine Color Urine Appearance Urine pH Ur Specific [place] Urine Protein Urine Glucose (UA) Urine Ketones Urine Blood Urine Nitrite Urine Bilirubin Urine Urobilinogen Ur Leukocyte Esterase Urine WBC (Auto) Urine RBC (Auto) U Hyaline Cast (Auto) U Epithel Cells (Auto) Urine Bacteria (Auto) POC Ur Test Salicylates Urine Opiates Screen Ur Methadone, Qual Acetaminophen Urine Barbiturates Ur Phencyclidine (PCP) U Amphetamin/Meth Scrn MDMA (Ecstasy) Screen U Benzodiazepines Scrn Ur Cocaine Metabolite U Marijuana (THC) Screen Ethyl Alcohol mg/dL SARS-CoV-2, RNA, NAAT 01/27/22 01/27/22 01/27/22 16:09 16:10 20:15 WBC RBC Hgb Hct MCV MCH MCHC RDW Std Deviation RDW Coeff of Keanu Plt Count MPV Immature Gran % (Auto) Neut % (Auto) Lymph % (Auto) [place] % (Auto) Eos % (Auto) Baso % (Auto) Neut # (Auto) Lymph # (Auto) [place] # (Auto) Eos # (Auto) Baso # (Auto) Immature Gran # (Auto) VBG pH VBG pCO2 VBG pO2 VBG HCO3 VBG O2 Saturation VBG Base Excess Sodium Potassium Chloride Carbon Dioxide Anion Gap BUN Creatinine Est Cr Clr Drug Dosing Est GFR ( Amer) Est GFR (Non-Af Amer) BUN/Creatinine Ratio Glucose POC Glucose 359 H* 379 H* 294 H Calcium Total Bilirubin AST ALT Alkaline Phosphatase Total Protein Albumin Globulin Albumin/Globulin Ratio TSH Urine Color Urine Appearance Urine pH Ur Specific [place] Urine Protein Urine Glucose (UA) Urine Ketones Urine Blood Urine Nitrite Urine Bilirubin Urine Urobilinogen Ur Leukocyte Esterase Urine WBC (Auto) Urine RBC (Auto) U Hyaline Cast (Auto) U Epithel Cells (Auto) Urine Bacteria (Auto) POC Ur Test Salicylates Urine Opiates Screen Ur Methadone, Qual Acetaminophen Urine Barbiturates Ur Phencyclidine (PCP) U Amphetamin/Meth Scrn MDMA (Ecstasy) Screen U Benzodiazepines Scrn Ur Cocaine Metabolite U Marijuana (THC) Screen Ethyl Alcohol mg/dL SARS-CoV-2, RNA, NAAT 01/27/22 01/28/22 01/28/22 23:53 03:55 07:25 WBC RBC Hgb Hct MCV MCH MCHC RDW Std Deviation RDW Coeff of Keanu Plt Count MPV Immature Gran % (Auto) Neut % (Auto) Lymph % (Auto) [place] % (Auto) Eos % (Auto) Baso % (Auto) Neut # (Auto) Lymph # (Auto) [place] # (Auto) Eos # (Auto) Baso # (Auto) Immature Gran # (Auto) VBG pH VBG pCO2 VBG pO2 VBG HCO3 VBG O2 Saturation VBG Base Excess Sodium Potassium Chloride Carbon Dioxide Anion Gap BUN Creatinine Est Cr Clr Drug Dosing Est GFR ( Amer) Est GFR (Non-Af Amer) BUN/Creatinine Ratio Glucose POC Glucose 169 H 143 H 257 H Calcium Total Bilirubin AST ALT Alkaline Phosphatase Total Protein Albumin Globulin Albumin/Globulin Ratio TSH Urine Color Urine Appearance Urine pH Ur Specific [place] Urine Protein Urine Glucose (UA) Urine Ketones Urine Blood Urine Nitrite Urine Bilirubin Urine Urobilinogen Ur Leukocyte Esterase Urine WBC (Auto) Urine RBC (Auto) U Hyaline Cast (Auto) U Epithel Cells (Auto) Urine Bacteria (Auto) POC Ur Test Salicylates Urine Opiates Screen Ur Methadone, Qual Acetaminophen Urine Barbiturates Ur Phencyclidine (PCP) U Amphetamin/Meth Scrn MDMA (Ecstasy) Screen U Benzodiazepines Scrn Ur Cocaine Metabolite U Marijuana (THC) Screen Ethyl Alcohol mg/dL SARS-CoV-2, RNA, NAAT 01/28/22 01/28/22 01/28/22 07:51 07:51 07:51 WBC 7.32 RBC 3.90 L Hgb 12.1 Hct 34.9 MCV 89.5 MCH 31.0 MCHC 34.7 RDW Std Deviation 37.1 RDW Coeff of Keanu 11.5 Plt Count 294 MPV 11.0 Immature Gran % (Auto) Neut % (Auto) Lymph % (Auto) [place] % (Auto) Eos % (Auto) Baso % (Auto) Neut # (Auto) Lymph # (Auto) [place] # (Auto) Eos # (Auto) Baso # (Auto) Immature Gran # (Auto) VBG pH 7.39 VBG pCO2 41 VBG pO2 51 VBG HCO3 25 VBG O2 Saturation 83.1 VBG Base Excess -0.2 Sodium 134 L Potassium 3.6 Chloride 101 Carbon Dioxide 26 Anion Gap 7 BUN 12 Creatinine 0.64 Est Cr Clr Drug Dosing 114.0 Est GFR ( Amer) 141.7 Est GFR (Non-Af Amer) 122.3 BUN/Creatinine Ratio 18.8 Glucose 306 H* POC Glucose Calcium 8.0 L Total Bilirubin AST ALT Alkaline Phosphatase Total Protein Albumin Globulin Albumin/Globulin Ratio TSH Urine Color Urine Appearance Urine pH Ur Specific [place] Urine Protein Urine Glucose (UA) Urine Ketones Urine Blood Urine Nitrite Urine Bilirubin Urine Urobilinogen Ur Leukocyte Esterase Urine WBC (Auto) Urine RBC (Auto) U Hyaline Cast (Auto) U Epithel Cells (Auto) Urine Bacteria (Auto) POC Ur Test Salicylates Urine Opiates Screen Ur Methadone, Qual Acetaminophen Urine Barbiturates Ur Phencyclidine (PCP) U Amphetamin/Meth Scrn MDMA (Ecstasy) Screen U Benzodiazepines Scrn Ur Cocaine Metabolite U Marijuana (THC) Screen Ethyl Alcohol mg/dL SARS-CoV-2, RNA, NAAT 01/28/22 01/28/22 07:51 11:33 WBC RBC Hgb Hct MCV MCH MCHC RDW Std Deviation RDW Coeff of Keanu Plt Count MPV Immature Gran % (Auto) Neut % (Auto) Lymph % (Auto) [place] % (Auto) Eos % (Auto) Baso % (Auto) Neut # (Auto) Lymph # (Auto) [place] # (Auto) Eos # (Auto) Baso # (Auto) Immature Gran # (Auto) VBG pH VBG pCO2 VBG pO2 VBG HCO3 VBG O2 Saturation VBG Base Excess Sodium Potassium Chloride Carbon Dioxide Anion Gap BUN Creatinine Est Cr Clr Drug Dosing Est GFR ( Amer) Est GFR (Non-Af Amer) BUN/Creatinine Ratio Glucose POC Glucose 268 H Calcium Total Bilirubin AST ALT Alkaline Phosphatase Total Protein Albumin Globulin Albumin/Globulin Ratio TSH Urine Color Urine Appearance Urine pH Ur Specific [place] Urine Protein Urine Glucose (UA) Urine Ketones Urine Blood Urine Nitrite Urine Bilirubin Urine Urobilinogen Ur Leukocyte Esterase Urine WBC (Auto) Urine RBC (Auto) U Hyaline Cast (Auto) U Epithel Cells (Auto) Urine Bacteria (Auto) POC Ur Test Salicylates 3.9 Urine Opiates Screen Ur Methadone, Qual Acetaminophen Urine Barbiturates Ur Phencyclidine (PCP) U Amphetamin/Meth Scrn MDMA (Ecstasy) Screen U Benzodiazepines Scrn Ur Cocaine Metabolite U Marijuana (THC) Screen Ethyl Alcohol mg/dL SARS-CoV-2, RNA, NAAT Medications Administered Bupropion HCl (Bupropion Xl 300 Mg Tabcr) 300 mg PO DAILY RANDOLPH Stop: 02/27/22 08:59 Last Admin: 01/28/22 08:23 Dose: 300 mg Documented By: ANASTASIYA Fish Oil ([place]-3 (Purified Fish Oil) 1 Gm Cap) 1 gm PO HS RANDOLPH Stop: 02/26/22 20:59 Last Admin: 01/27/22 20:41 Dose: 1 gm Documented By: CASPER Fluticasone Furoate (Fluticasone Furoate 200mcg 14 Puffs/Inhaler) 1 puffs INH QAM RANDOLPH Stop: 02/27/22 08:59 Last Admin: 01/28/22 08:23 Dose: 1 puffs Documented By: ANASTASIYA Insulin Aspart (Insulin Aspart Per Unit) 0 units SC ACHS RANDOLPH Stop: 02/26/22 16:29 Last Admin: 01/28/22 12:33 Dose: 7 units Documented By: ANASTASIYA Co-signed By: AM Admin: 01/28/22 08:25 Dose: 7 units Documented By: ANASTASIYA Co-signed By: ENE Admin: 01/27/22 20:41 Dose: 4 units Documented By: CASPER Co-signed By: SUKHWINDER Admin: 01/27/22 17:46 Dose: 7 units Documented By: ANASTASIYA Co-signed By: ELDON Brexpiprazole 1 Mg* (Patient's Own Med) 1 each PO Q24H RANDOLPH Stop: 02/27/22 09:59 Last Admin: 01/28/22 10:01 Dose: 1 tab Documented By: ANASTASIYA Pantoprazole Sodium (Pantoprazole 40 Mg Tab) 40 mg PO BID RANDOLPH Stop: 02/26/22 20:59 Last Admin: 01/28/22 08:23 Dose: 40 mg Documented By: Admin: 01/27/22 20:41 Dose: 40 mg Documented By: CASPER Prenat Multivit/[place]/Iron/Folic Ac ( Vitamin 1 Tab) 1 tab PO QAM RANDOLPH Stop: 02/27/22 08:59 Last Admin: 01/28/22 08:23 Dose: 1 tab Documented By: ANASTASIYA Propranolol HCl (Propranolol Hcl 60 Mg La Cap) 60 mg PO HS RANDOLPH Stop: 02/26/22 20:59 Last Admin: 01/27/22 20:41 Dose: Not Given Documented By: CASPER Sertraline HCl (Sertraline Hcl 50 Mg Tablet) 50 mg PO DAILY RANDOLPH Stop: 02/27/22 08:59 Last Admin: 01/28/22 08:23 Dose: 50 mg Documented By: ANASTASIYA Trazodone HCl (Trazodone Hcl 50 Mg Tab) 50 mg PO HS RANDOLPH Stop: 02/26/22 20:59 Last Admin: 01/27/22 20:40 Dose: 50 mg Documented By: CASPER Vitamin D (Cholecalciferol 1,000 Units 25 Mcg Tab) 2,000 units PO DAILY RANDOLPH Stop: 02/27/22 08:59 Last Admin: 01/28/22 08:23 Dose: 2,000 units Documented By: ANASTASIYA Vitamin E (Tocopheryl, Dl-Alpha 100 Units Cap) 100 units PO QAM RANDOLPH Stop: 02/27/22 08:59 Last Admin: 01/28/22 08:23 Dose: 100 units Documented By: ANASTASIYA Coding Level of Care Code 33917 [facility] Intl Hosp Care Lvl 2 Diagnoses Depression F32.9 Borderline personality disorder F60.3 Diabetic gastroparesis associated with type 1 diabetes mellitus E10.43; K31.84 Salicylate overdose T39.091A
[2022-01-28] MEDS ORDERED: LANTUS PER UNIT CHARGE SQ SCH (16:00)
--- NOTE | 2022-01-28 16:08 | Hospitalist Progress Note ---
Date of Service January 28, 2022 Assessment & Plan (1) Salicylate overdose: Plan: Presents with suicide attempt with salicylate overdose. Patient took close to 10 grams of aspirin-it is unclear if it was enteric-coated or not. Patient was out of the window for activated charcoal at the time of admission. They were initially treated with sodium bicarbonate drip with attempts to keep pH at 7.5-7.55. Most recent pH is 7.39, however salicylate level is now down from 32 on admission to 3.9. Sodium bicarbonate drip was stopped prior to this morning. APAP levels are negative, urine drug screen negative, alcohol level negative. LFTs and renal function normal, CBC normal No evidence of bleeding, headache, tinnitus Mental status is completely normal, no tachypnea. No arrhythmias-has a history of sinus tachycardia and POTS They are medically stable at this time from the standpoint of overdose will continue home protonix. -Psychiatry consult appreciated-plan for voluntary inpatient psychiatric stay once bed becomes available as long as glucose checks are less than 250 (2) Type I diabetes mellitus: Plan: With hyperglycemia, no evidence of DKA Glycemic pharmacy control consult is placed Insulin pump is removed and they are receiving Lantus and NovoLog Goal is to get glucose under 250 prior to discharge to inpatient psychiatric facility Hemoglobin A1c still pending Follows with endocrinology as an outpatient (3) POTS (postural orthostatic tachycardia syndrome): Plan: Patient on propranolol, their systolic BP is normally in the 80s Compression stocks and salt tablets as needed (4) Suicide attempt: Plan: As noted above. Plan for inpatient psychiatric stay (5) Depression: Plan: Appreciate psychiatric consultation Continue home sertraline and brexpiprazole as well as bupropion and hydroxyzine as needed Trazodone at bedtime (6) Borderline personality disorder: Plan: Noted (7) Chronic migraine: Plan: on propranolol, appears controlled. will monitor for symptoms (8) Celiac disease: Plan: They need gluten-free diet Plan DVT prophylaxis ambulation Disposition-continued stay on telemetry, awaiting improvement in blood sugars and inpatient psychiatric bed on a voluntary basis Admission and Anticipated Discharge Date Admission Date: January 27, 2022 Subjective Patient reports they feel well. Denies headache or lightheadedness, no visual changes. Denies shortness of breath or chest pain, no abdominal pains or indigestion, no nausea or vomiting. No diarrhea. They are urinating. No bleeding from anywhere, no rashes or joint pains. They are eating and drinking without difficulty. Telemetry with normal sinus rhythm and sinus tachycardia with rates in the 110s I discussed their care with psychiatry Review of Systems Review of Systems: All systems reviewed & are unremarkable except as noted in HPI & below Physical Exam Constitutional: WD/WN, vitals as above Eyes: PERRL, conjunctivae normal, anicteric sclerae ENMT: external ear and nose normal, oropharynx normal Neck: trachea midline, no thyromegaly Respiratory: normal respiratory effort, lungs clear to auscultation Cardiovascular: RRR, no murmur, no edema Chest (Breasts): Chest: normal inspection of chest Gastrointestinal (Abdomen): normal bowel sounds, soft, nontender, no hepatosplenomegaly Musculoskeletal: Extremities: extremities normal to inspection; no cyanosis and no clubbing Skin: no rashes, warm and dry Neurologic: moves all extremities and awake; no focal motor deficits Psychiatric: A+Ox3, euthymic affect Lymphatic: no lymphedema Results & Data Results & Data ([facility]) Vital Signs (Past 12 Hours) Vital Signs Temp Pulse Pulse Resp BP Pulse Ox O2 Del Method 01/28/22 15:27 36.9 C 97 H 19 91/61 L 95 Room Air 01/28/22 10:51 37.0 C 85 18 93/59 L 95 Room Air 01/28/22 07:01 37.0 C 80 16 82/45 L 95 Room Air Laboratory Results 01/28/22 01/28/22 01/28/22 Range/Units 16:17 11:33 07:51 WBC (4.8-10.8) K/ul RBC (3.93-5.22) M/uL Hgb (12.0-16.0) g/dl Hct (34.1-44.9) % MCV (80.0-100.0) fL MCH (25.0-34.0) pg MCHC (32.0-36.0) g/dL RDW Std Deviation (36.4-46.3) fL RDW Coeff of Keanu (11.5-14.5) % Plt Count (130-400) K/uL MPV (9.4-12.3) fL VBG pH (7.36-7.41) VBG pCO2 (38-50) mmHg VBG pO2 mmHg VBG HCO3 mmol/L VBG O2 Saturation % VBG Base Excess mEq/L Sodium (136-145) mmol/L Potassium (3.5-5.1) mmol/L Chloride (98-107) mmol/L Carbon Dioxide (21-32) mmol/L Anion Gap (3-11) BUN (6-23) mg/dl Creatinine (0.6-1.2) mg/dl Est Cr Clr Drug Dosing ml/min Est GFR ( Amer) ml/min Est GFR (Non-Af Amer) ml/min BUN/Creatinine Ratio (10-20) Glucose (70-99(Fasting)) mg/dl POC Glucose 227 H 268 H (70-99) mg/dl Estimat Average Glucose Hemoglobin A1c Calcium (8.5-10.1) mg/dl Salicylates 3.9 (3.0-30) mg/dl 01/28/22 01/28/22 01/28/22 Range/Units 07:51 07:51 07:51 WBC 7.32 (4.8-10.8) K/ul RBC 3.90 L (3.93-5.22) M/uL Hgb 12.1 (12.0-16.0) g/dl Hct 34.9 (34.1-44.9) % MCV 89.5 (80.0-100.0) fL MCH 31.0 (25.0-34.0) pg MCHC 34.7 (32.0-36.0) g/dL RDW Std Deviation 37.1 (36.4-46.3) fL RDW Coeff of Keanu 11.5 (11.5-14.5) % Plt Count 294 (130-400) K/uL MPV 11.0 (9.4-12.3) fL VBG pH 7.39 (7.36-7.41) VBG pCO2 41 (38-50) mmHg VBG pO2 51 mmHg VBG HCO3 25 mmol/L VBG O2 Saturation 83.1 % VBG Base Excess -0.2 mEq/L Sodium 134 L (136-145) mmol/L Potassium 3.6 (3.5-5.1) mmol/L Chloride 101 (98-107) mmol/L Carbon Dioxide 26 (21-32) mmol/L Anion Gap 7 (3-11) BUN 12 (6-23) mg/dl Creatinine 0.64 (0.6-1.2) mg/dl Est Cr Clr Drug Dosing 114.0 ml/min Est GFR ( Amer) 141.7 ml/min Est GFR (Non-Af Amer) 122.3 ml/min BUN/Creatinine Ratio 18.8 (10-20) Glucose 306 H* (70-99(Fasting)) mg/dl POC Glucose (70-99) mg/dl Estimat Average Glucose Hemoglobin A1c Calcium 8.0 L (8.5-10.1) mg/dl Salicylates (3.0-30) mg/dl 01/28/22 01/28/22 01/27/22 Range/Units 07:25 03:55 23:53 WBC (4.8-10.8) K/ul RBC (3.93-5.22) M/uL Hgb (12.0-16.0) g/dl Hct (34.1-44.9) % MCV (80.0-100.0) fL MCH (25.0-34.0) pg MCHC (32.0-36.0) g/dL RDW Std Deviation (36.4-46.3) fL RDW Coeff of Keanu (11.5-14.5) % Plt Count (130-400) K/uL MPV (9.4-12.3) fL VBG pH (7.36-7.41) VBG pCO2 (38-50) mmHg VBG pO2 mmHg VBG HCO3 mmol/L VBG O2 Saturation % VBG Base Excess mEq/L Sodium (136-145) mmol/L Potassium (3.5-5.1) mmol/L Chloride (98-107) mmol/L Carbon Dioxide (21-32) mmol/L Anion Gap (3-11) BUN (6-23) mg/dl Creatinine (0.6-1.2) mg/dl Est Cr Clr Drug Dosing ml/min Est GFR ( Amer) ml/min Est GFR (Non-Af Amer) ml/min BUN/Creatinine Ratio (10-20) Glucose (70-99(Fasting)) mg/dl POC Glucose 257 H 143 H 169 H (70-99) mg/dl Estimat Average Glucose Hemoglobin A1c Calcium (8.5-10.1) mg/dl Salicylates (3.0-30) mg/dl 01/27/22 01/27/22 Range/Units 20:15 15:03 WBC (4.8-10.8) K/ul RBC (3.93-5.22) M/uL Hgb (12.0-16.0) g/dl Hct (34.1-44.9) % MCV (80.0-100.0) fL MCH (25.0-34.0) pg MCHC (32.0-36.0) g/dL RDW Std Deviation (36.4-46.3) fL RDW Coeff of Keanu (11.5-14.5) % Plt Count (130-400) K/uL MPV (9.4-12.3) fL VBG pH (7.36-7.41) VBG pCO2 (38-50) mmHg VBG pO2 mmHg VBG HCO3 mmol/L VBG O2 Saturation % VBG Base Excess mEq/L Sodium (136-145) mmol/L Potassium (3.5-5.1) mmol/L Chloride (98-107) mmol/L Carbon Dioxide (21-32) mmol/L Anion Gap (3-11) BUN (6-23) mg/dl Creatinine (0.6-1.2) mg/dl Est Cr Clr Drug Dosing ml/min Est GFR ( Amer) ml/min Est GFR (Non-Af Amer) ml/min BUN/Creatinine Ratio (10-20) Glucose (70-99(Fasting)) mg/dl POC Glucose 294 H (70-99) mg/dl Estimat Average Glucose Pending Hemoglobin A1c Pending Calcium (8.5-10.1) mg/dl Salicylates (3.0-30) mg/dl PG Care Time/CCT Total # of Minutes Spent Total Time Spent with Patient: Total time spent is greater than 50% in coordination of care (as documented) at patient's floor/unit and/or counseling patient: Coding Level of Care Code 79471 Subseq Hosp Care Lvl 3 Diagnoses Salicylate overdose T39.091A Type I diabetes mellitus E10.69 Diabetes mellitus complication status: with other specified complication POTS (postural orthostatic tachycardia syndrome) I49.8 Suicide attempt T14.91XA Depression F32.9 Borderline personality disorder F60.3 Chronic migraine G43.709 Celiac disease K90.0 (1) Type I diabetes mellitus Diabetes mellitus complication status: with other specified complication Qualified Code(s): E10.69 - Type 1 diabetes mellitus with other specified complication
[2022-01-28] MEDS: OMEGA-3 (PURIFIED FISH OIL) 1 GM CAP PO SCH (21:49)
[2022-01-28] MEDS: traZODone HCL 50 MG TAB PO SCH (21:50)
[2022-01-28] MEDS: PROPRANOLOL HCL 60 MG LA CAP PO SCH (21:50)
[2022-01-29] MEDS ORDERED: INSULIN ASPART PER UNIT SC SCH (02:00)
[2022-01-29 06:08] LABS: Basophils # (auto) 0.08 K/uL (0-0.2); Basophils % (auto) 1.1 %; Eosinophils # (auto) 0.16 K/uL (0-0.50); Eosinophils % (auto) 2.1 %; Hematocrit (blood only) 37.4 % (34.1-44.9); Hemoglobin 12.7 g/dl (12.0-16.0); Immature Granulocytes # (auto) 0.03 K/uL (0.00-0.02); Immature Granulocytes % (auto) 0.4 %; Lymphocytes # (auto) 2.06 K/uL (1.2-3.4); Lymphocytes % (auto) 27.3 %; Mean Corpuscular Hemoglobin 30.5 pg (25.0-34.0); Mean Corpuscular Volume 89.9 fL (80.0-100.0); Mean Platelet Volume 10.9 fL (9.4-12.3); Monocytes # (auto) 0.88 K/uL (0.24-0.82); Monocytes % (auto) 11.7 %; Neutrophils # (auto) 4.33 K/uL (1.4-6.5); Neutrophils % (auto) 57.4 %; Platelet Count 346 K/uL (130-400); RDW Coefficient of Variation 11.2 % (11.5-14.5); RDW Standard Deviation 36.9 fL (36.4-46.3); Red Blood Count 4.16 M/uL (3.93-5.22); White Blood Count 7.54 K/ul (4.8-10.8)
[2022-01-29 06:10] LABS: Base Excess VBG 5.8 mEq/L; HCO3 VBG 32 mmol/L; Oxygen Saturation VBG < 60.0 %; PCO2 VBG 50 mmHg (38-50); PO2 VBG 24 mmHg; pH VBG 7.41 (7.36-7.41)
[2022-01-29 06:41] LABS: Albumin Globulin Ratio 1.4 (0.9-2); Albumin Level 3.7 gm/dl (3.4-5.0); BUN Creatinine Ratio 22.7 (10-20); Bilirubin,Total 0.9 mg/dl (0.2-1.0); Calcium 8.6 mg/dl (8.5-10.1); Creatinine Clr Calc Pharmacy 110.6 ml/min; Est GFR (African American) 140.3 ml/min; Est GFR (Non-African American) 121.1 ml/min; Globulin 2.7 gm/dl (2.5-4.0); Potassium 3.2 mmol/L (3.5-5.1); Total Protein 6.4 gm/dl (6.0-8.3)
[2022-01-29] MEDS ORDERED: GLUCAGON FOR INJ 1 MG VIAL IM PRN (07:30)
[2022-01-29] MEDS ORDERED: DEXTROSE 50% 50 ML SYRINGE IV PRN (07:30)
[2022-01-29] MEDS ORDERED: GLUCOSE 40% GEL 15 GM TUBE PO PRN (07:30)
[2022-01-29] MEDS ORDERED: CARBOHYDRATES FOR HYPOGLYCEMIA PO PRN (07:30)
[2022-01-29] MEDS ORDERED: GLUCOSE 10 TAB/TUBE PO PRN (07:30)
[2022-01-29 08:03] LABS: Estimated Average Glucose 226 mg/dl; Hemoglobin A1C 9.5 % (4.5-5.6)
[2022-01-29] MEDS ORDERED: POTASSIUM CHLORIDE CRTAB 20 MEQ TABCR PO STA (08:28)
[2022-01-29] MEDS: buPROPion XL 300 MG TABCR PO SCH (08:54)
[2022-01-29] MEDS: CHOLECALCIFEROL 1,000 UNITS 25 MCG TAB PO SCH (08:54)
[2022-01-29] MEDS: TOCOPHERYL, DL-ALPHA 100 UNITS CAP PO SCH (08:54)
[2022-01-29] MEDS: FLUTICASONE FUROATE 200MCG 14 PUFFS/INHALER INH SCH (08:55)
[2022-01-29] MEDS: PRENATAL VITAMIN 1 TAB PO SCH (08:55)
[2022-01-29] MEDS: PANTOprazole 40 MG TAB PO SCH (08:55)
[2022-01-29] MEDS: SERTRALINE HCL 50 MG TABLET PO SCH (08:55)
[2022-01-29] MEDS: BREXPIPRAZOLE 1 MG PO SCH (08:56)
[2022-01-29] MEDS: INSULIN ASPART PER UNIT SC SCH ×2 (09:39→12:39)
--- NOTE | 2022-01-29 10:15 | Pharmacy Report ---
Pharmacy Glycemic Short Note 2 - Date of Service January 29, 2022 - Glycemic Short BSG Results (Last 24 hours): 01/28/22 01/28/22 01/28/22 11:33 16:17 20:57 Glucose POC Glucose 268 H 227 H 328 H* 01/29/22 01/29/22 01/29/22 02:07 05:45 07:15 Glucose 78 POC Glucose 186 H 100 H OUTPATIENT ANTIDIABETIC REGIMEN: * Novolog Insulin Pump ~ 60 units total per day * HbA1c = 9.5% (01/27/22) ASSESSMENT: * Admitted 01/27/22 secondary to intentional overdose. Pharmacy was consulted that day for assistance with inpatient glycemic management. * Pump taken off. BSG was 404 mg/dL. Received 15 units Lantus + 12 units Novolog on Saturday. Received 20 units Lantus + 22 units Novolog on Saturday. BSGs ranged 140-379 mg/dL. * Plan is for transfer to inpatient [facility] facility. Will need stable BSGs off pump prior to discharge. * Fasting BSG was 100 mg/dL this AM. Will reduced Lantus today. Tightened carb ratio slightly this AM. PLAN FOR INPATIENT GLYCEMIC CONTROL: * Continue to hold insulin pump * Basal insulin * Lantus 15 units SC daily at 1600 * Bolus insulin * NovoLog per scale ACHS or Q6hrs while NPO * Goal Range: Low 110 mg/dL - High 140 mg/dL * Correction Factor: 50 mg/dL/unit * Nutritional / Prandial insulin per carb ratio of 1 unit per 8 grams CHO consumed
--- NOTE | 2022-01-29 11:12 | Discharge Summary ---
Date of Service January 29, 2022 Admission HPI Per Admitting Provider Bon is a pleasant 26 yo person who comes to the ER after sttaing that they ingested close to 10 grams of aspirin. They reported that they took this sometime between 1 am and 4 am. Arrived at the ED around 6:40 am for help. Currently not having any symptoms. Principal Diagnosis ASA Overdose, Suicide attempt, hyperglycemia Discharge Exam Constitutional WD/WN, vitals as above Eyes PERRL, conjunctivae normal, anicteric sclerae ENMT external ear and nose normal, oropharynx normal Neck trachea midline, no thyromegaly Respiratory normal respiratory effort, lungs clear to auscultation Cardiovascular RRR, no murmur, no edema Chest (Breasts) Chest: normal inspection of chest Gastrointestinal (Abdomen) normal bowel sounds, soft, nontender, no hepatosplenomegaly Musculoskeletal Extremities: extremities normal to inspection; no cyanosis and no clubbing Skin no rashes, warm and dry Neurologic moves all extremities and awake; no focal motor deficits Psychiatric A+Ox3, euthymic affect Lymphatic no lymphedema Discharge Data Allergies Allergy/AdvReac Type Severity Reaction Status Date / Time gluten Allergy Severe CELIAC'S Verified 01/27/22 07:18 DISEASE Penicillins Allergy Severe ANAPHYLAXIS Verified 01/27/22 07:18 shellfish derived Allergy Severe ANAPHYLAXIS Verified 01/27/22 07:18 apple Allergy Intermediate THROAT Verified 01/27/22 07:18 SWELLS house dust Allergy Intermediate Hives Verified 01/27/22 07:18 oxcarbazepine Allergy Intermediate Rash,hives Verified 01/27/22 07:18 and itchiness. lactose AdvReac Intermediate Gatrointestinal Verified 01/27/22 07:18 Upset sumatriptan [From Imitrex] AdvReac Intermediate INTENSIFIES Verified 01/27/22 07:18 HEADACHE Consultations 01/27/22 11:21 Consult Psychiatry Routine 01/27/22 14:28 Consult Behavioral Health Liaison Routine Hospital Course (1) Salicylate overdose: Presents with suicide attempt with salicylate overdose. Patient took close to 10 grams of aspirin-it is unclear if it was enteric-coated or not. Patient was out of the window for activated charcoal at the time of admission. They were initially treated with sodium bicarbonate drip with attempts to keep pH at 7.5-7.55. Most recent pH is 7.40 and stable, salicylate level is now down from 32 on admission to <3,0 Sodium bicarbonate drip was stopped after running for a short amount of time APAP levels are negative, urine drug screen negative, alcohol level negative. LFTs and renal function normal, CBC normal No evidence of bleeding, headache, tinnitus Mental status is completely normal, no tachypnea. No arrhythmias-has a history of sinus tachycardia and POTS They are medically stable at this time from the standpoint of overdose will continue home protonix bid for GI protection -Psychiatry consult appreciated-plan for voluntary inpatient psychiatric stay (2) Type I diabetes mellitus: With hyperglycemia, no evidence of DKA Glycemic pharmacy control consult is placed. Tends to get high on glucose at lunchtime and drops in evening-Pharmacy is familiar with her management and should be consulted once on inpatient psych unit Insulin pump is removed and they are receiving Lantus and NovoLog Hemoglobin A1c uncontrolled at 9.5% Follows with endocrinology as an outpatient continue Lantus 15 units in afternoon and Novolog goal 100-140, CF 50, CR 1:8 and adjust as needed. Patient asks that there be no 2:00 AM glucose check if possible (3) POTS (postural orthostatic tachycardia syndrome): Patient on propranolol, their systolic BP is normally in the 80s but is actually improved here Compression stocks and salt tablets as needed follows with Cardiology as an outpt (4) Suicide attempt: As noted above. Plan for inpatient psychiatric stay (5) Depression: Appreciate psychiatric consultation Continue home sertraline and brexpiprazole as well as bupropion and hydroxyzine as needed Trazodone at bedtime (6) Borderline personality disorder: Noted (7) Chronic migraine: appears controlled. gets Botox injections will monitor for symptoms (8) Celiac disease: They need gluten-free diet Plan DVT prophylaxis ambulation Disposition-dc to inpatient psychiatric bed on a voluntary basis today Total Time Total Time Spent Total Time Spent (In Minutes): 35 min Discharge Plan Discharge Items Patient Disposition: Transfer Behavioral Health Fac Reason For Visit: ASPIRIN OVERDOSE Discharge Diagnosis: Aspirin overdose, suicide attempt, hyperglycemia Condition on Discharge: Good Activity: Resume your previous activity Non-emergency contact: Primary Care Provider and Psychiatrist Call non-emergency contact if: you have any medication questions Follow-up/Referrals: Tamara Palomo PA-C [Primary Care Provider] - (Follow up after discharge from hospital within 1-2 weeks) Diet: Carb Count or DM1 Addtl Attending Provider Instructions: Continue to remain off your insulin pump and receive Lantus and Novolog. Check blood sugars before each meal and at bedtime. You do not need the 2:00 AM blood sugar check. Otherwise, medical management as per Psychiatry. Would recommend Pharmacy Glycemic Consult for ongoing glucose management while on BHU. Pending Studies at Discharge: No Stand-Alone Forms: My [facility] Skilled Items DNR: No Lines: None Urinary Catheter: No Medications and DC Order Prescriptions: New insulin aspart U-100 [Novolog U-100 Insulin aspart] 100 unit/mL Solution See Rx Instructions .ROUTE .COMPLEX Qty: 10 0RF Rx Instructions: Range 110-140, Correction factor 50, Carbohydrate ratio 1 unit:8 grams insulin glargine [Lantus U-100 Insulin] 100 unit/mL Solution 15 unit subcut DAILY@1600 Qty: 10 0RF Continued Basaglar KwikPen U-100 Insulin 100 unit/mL (3 mL) insulin pen 20 units SQ DAILY@16 PRN (Reason: Novolog Pump Failure) Rx Instructions: If pump fails propranolol [Inderal LA] 60 mg capsule,extended release 24 hr 60 mg PO HS Qty: 30 5RF Botox 200 unit recon soln See Rx Instructions IM .COMPLEX Qty: 1 3RF Rx Instructions: 155 UNITS IM IN THE FACE AND NECK MUSCLES EVERY 12 WEEKS PER MIGRAINE PROTOCOL (DME) Aerochamber MV spacer See Rx Instructions .ROUTE .MEDSUPPLY Qty: 1 0RF Rx Instructions: As directed hydroxyzine HCl 25 mg tablet 25 mg PO DAILY PRN (Reason: Anxiety) (DME) Ketostix Strip See Rx Instructions .ROUTE .MEDSUPPLY Qty: 100 2RF Rx Instructions: As directed to check ketones Trueplus glucagon 3 mg/actuation spray,non-aerosol 3 mg intranasal PRN Qty: 2 3RF (DME) insulin syringe-needle U-100 [BD Insulin Syringe] 0.3 mL 29 gauge x 1/2" syringe See Rx Instructions .Route Qty: 100 3RF Rx Instructions: As directed; 4x per day in case of pump failure propranolol 10 mg tablet 10 mg PO BID PRN (Reason: palpitations) Qty: 60 2RF sertraline [Zoloft] 50 mg tablet 50 mg PO DAILY (DME) comp.stocking,thigh,short,smal Misc See Rx Instructions .ROUTE .MEDSUPPLY Qty: 2 1RF Rx Instructions: As directed vitamin E (dl, acetate) 45 mg (100 unit) capsule 45 mg PO QAM cholecalciferol (vitamin D3) 50 mcg (2,000 unit) capsule 100 mcg PO DAILY prenat.vits,mathieu,xxz-otov-pykra Tablet 1 tab PO QAM (DME) insulin pump controller Misc MISCELLANEOUS sodium chloride 1 gram tablet 1,000 mg PO BID PRN (Reason: orthostatic hypotension) bupropion HCl 300 mg tablet extended release 24 hr 300 mg PO DAILY trazodone 50 mg tablet 50 mg PO HS fluticasone propionate [Flovent HFA] 220 mcg/actuation HFA aerosol inhaler 220 mcg INHALATION QAM pantoprazole 40 mg tablet,delayed release (DR/EC) 40 mg PO BID omega 1-bbk-uzm-fish oil [Fish Oil] 1,000 mg (120 mg-180 mg) Capsule 1 cap PO HS Rexulti 1 mg tablet 1 mg PO QAM Linzess 72 mcg capsule 72 mcg PO DAILY PRN (Reason: Constipation) insulin aspart U-100 100 unit/mL solution 100 unit continuous subcutaneous infusion CONTINOUS 90 Days Qty: 90 1RF Rx Instructions: TDD 60 units/day Restart upon discharge from hospital Discharge Orders: Discharge Order (Routine); Ordered 01/29/22 Ordered By: Ana Villagran Admission Data Admit Date/Time: 01/27/22 10:58 Attending Provider: Ana Villagran Admit Provider: Dipesh Donis Primary Care Provider: Tamara Palomo Other Providers: Kamilla Ambrocio ; Mary Elizabeth ; Viri Cabrera Coding Level of Care Code D/C DAY MANAGEMENT >30 MINS Diagnoses Salicylate overdose T39.091A Type I diabetes mellitus E10.69 Diabetes mellitus complication status: with other specified complication POTS (postural orthostatic tachycardia syndrome) I49.8 Suicide attempt T14.91XA Depression F32.9 Borderline personality disorder F60.3 Chronic migraine G43.709 Celiac disease K90.0
[2022-01-29] MEDS ORDERED: LANTUS PER UNIT CHARGE SQ SCH (16:00)
== END 2022-01-29 13:06 | DRG 918 ==
LOC: ED 06:20 → SUATTDRO 10:58 → 2S 10:58

== ENCOUNTER 2022-01-29 13:07 | Inpatient (IN) ==
[2022-01-29] MEDS ORDERED: ALUMINUM/MAGNESIUM SUSP 30 ML UDC PO PRN (13:48)
[2022-01-29] MEDS ORDERED: hydrOXYzine HCl 25 MG TAB PO PRN ×2 (13:48)
[2022-01-29] MEDS ORDERED: BISMUTH SUBSALICYLATE LIQD 236 ML PO PRN (13:48)
[2022-01-29] MEDS ORDERED: MAGNESIUM HYDROXIDE SUSP 30 ML UDC PO PRN (13:48)
[2022-01-29] MEDS ORDERED: SODIUM CHLORIDE 0.65% NA SOLN 45 ML (OCEAN) PRN (13:48)
[2022-01-29] MEDS ORDERED: ACETAMINOPHEN 325 MG TAB PO PRN (13:48)
[2022-01-29] MEDS ORDERED: PHARMACY GLYCEMIC MGMT CONSULT PRN (14:25)
[2022-01-29] MEDS ORDERED: DEXTROSE 50% 50 ML SYRINGE IV PRN (14:45)
[2022-01-29] MEDS ORDERED: traZODone HCL 50 MG TAB PO PRN (14:45)
[2022-01-29] MEDS ORDERED: GLUCOSE 10 TAB/TUBE PO PRN (14:45)
[2022-01-29] MEDS ORDERED: PROPRANOLOL HCL 10 MG TAB PO PRN (14:45)
[2022-01-29] MEDS ORDERED: SODIUM CHLORIDE 1 GM TABLET PO PRN (14:45)
[2022-01-29] MEDS ORDERED: GLUCOSE 40% GEL 15 GM TUBE PO PRN (14:45)
[2022-01-29] MEDS ORDERED: GLUCAGON FOR INJ 1 MG VIAL IM PRN (14:45)
[2022-01-29] MEDS ORDERED: linaCLOtide 72 MCG CAPSULE PO PRN (14:45)
[2022-01-29] MEDS ORDERED: CARBOHYDRATES FOR HYPOGLYCEMIA PO PRN (14:45)
[2022-01-29] MEDS ORDERED: LANTUS PER UNIT CHARGE SQ SCH (17:15)
[2022-01-29] MEDS: INSULIN ASPART PER UNIT SC SCH ×2 (18:08→21:24)
[2022-01-29] MEDS: PANTOprazole 40 MG TAB PO SCH (21:16)
[2022-01-29] MEDS: OMEGA-3 (PURIFIED FISH OIL) 1 GM CAP PO SCH (21:16)
[2022-01-29] MEDS ORDERED: PROPRANOLOL HCL 60 MG LA CAP PO SCH (22:00)
--- NOTE | 2022-01-30 08:14 | History & Physical ---
Date of Service January 30, 2022 Impression / Recommendations Impression 26 yo non-binary patient with chronic SI/SIB, high risk due to access to insulilln/BP meds with medical knowledge, s/p ASA OD. (1) Depression: (2) Borderline personality disorder: (3) Eating disorder: (4) Type I diabetes mellitus: Diabetes mellitus complication status: with other specified complication Qualified Code(s): E10.69 - Type 1 diabetes mellitus with other specified complication (5) POTS (postural orthostatic tachycardia syndrome): (6) Suicide attempt: Plan The patient was admitted to the [facility] ([facility] inpatient mental health unit) on q15 min checks (behavioral with suicide precautions) for safety. The patient will participate in group, recreational, and milieu therapies and will be offered additional individual and family sessions as clinically appropriate. J is typically switched to shorter acting propranolol while inpatient as less splitting over parameters. Patient has glycemic pharmacy consult and has been cooperative thus far with staff/unit routine. Dietary consult. Suicide Risk Level Suicide Risk Level: High-Moderate (q15 min suicide checks) Risk Factors Assessment : Yes Do You Have Access To A Gun?: Yes (landlord/housemate has firearm) Health Problems: Yes Mental Health Diagnoses: Yes Previous Attempt: Yes Previous Psychiatric Hospitalization: Yes Protective Factors Assessment Employed: Yes [employer] with Provider: Yes (psych clinic, CM) Psychiatric History Identifying Data MAYA MEYERS is a 26-year-old biologic F who identifies as non-binary Bonifacio or Yola preferring "they/them" pronouns. They have a history of multiple inpatient admits for SI/SIB, include a stay in October 2021 for an ASA OD. They were admitted to the medical floor on 01/27/22 s/p ASA OD and was medically cleared for discharge/admission to on 01/29/22 13:07 on a 201 voluntary commitment. Chief Complaint Chronically hospitalized for SI and high risk given limited supports, access to insulin pump, etc History of Present Illness The patient was not particularly engaged in consultation on the med floor as per initial consult on 01/28/22, ingested: unknown amount of ASA (possibly 10 gms), salicylate level 31.3. Won't elaborate other than confirm they were taking medications as prescribed, perhaps not engaged regularly with therapy since other therapist left psych clinic. Insulin pump is out and eating/drinking. gluc checks "high but not horrible." Today they state "I hate my work" but doesn't see alot of options, they requested to reassigned to a different therapist at psych clinic so essentially some lapse in treatment. They seem to have some change in relationship with landlord as feels it was implied they may not be able to live there if have a suicide attempt there. This resulted in them reportedly ingesting the pills in the car and then not going inside when felt the need to lay down. "I don't feel safe there", meaning is looking for subsidized housing. Talks about the hopelessness in life though also actively managing diabetes and wanting to try a low nickel diet for their skin as recommended by derm. Past Psychiatric History Current Psychiatric Diagnosis: BPD Do You Have Access To A Gun?: Yes (landlord/housemate has firearm) Additional Notes: bipolar vs borderline personality disorder Outpatient Services: FARHANA Osorio, NAVDEEP Alfred,PhD at psych clinic. Previous Psych Admissions: During 2015 hospitalization here, they were diagnosed with bipolar 1, anxiety NOS with sympt oms of NESHA, panic, and PTSD that did not meet full criteria for anyone condition, and narcotic and cannabis abuse in remission. They were later diagnosed with borderline personality disorder, NESHA, depression, and eating disorder NOS. Current Psychiatric Diagnosis: BPD, NESHA, eating disorder, unspecified and depression Previous Psych Admissions: [facility] 10/25, 07/25, [facility] for 3 days in 2014 for SI. 11/2019 for depression, SI, and SIB. 12/25 2011 in [place] for suicide attempt by toxic ingestion. History of Previous Suicide Attempt: Yes Describe Attempts in the Past: Overdose 6+ (first age 15, last admission was Zofran ingestion, now 2nd ASA). Medication Trials: Lamotrigine - started here in 2014 Zolpidem Geodon Lunesta Depakote Trileptal -allergic Lorazepam - as needed for anxiety [place] Lamotrigine Sertraline Hydroxyzine for sleep Buspar Current Psychiatric Diagnosis: BPD; NESHA; Insomnia; MDD Describe Attempts in the Past: OD attempts in past; aborted attempt on 02/05; 10/25 as above Allergies Allergy/AdvReac Type Severity Reaction Status Date / Time gluten Allergy Severe CELIAC'S Verified 01/27/22 07:18 DISEASE Penicillins Allergy Severe ANAPHYLAXIS Verified 01/27/22 07:18 shellfish derived Allergy Severe ANAPHYLAXIS Verified 01/27/22 07:18 apple Allergy Intermediate THROAT Verified 01/27/22 07:18 SWELLS house dust Allergy Intermediate Hives Verified 01/27/22 07:18 oxcarbazepine Allergy Intermediate Rash,hives Verified 01/27/22 07:18 and itchiness. lactose AdvReac Intermediate Gatrointestinal Verified 01/27/22 07:18 Upset sumatriptan [From Imitrex] AdvReac Intermediate INTENSIFIES Verified 01/27/22 07:18 HEADACHE Home Medications Medication Instructions Recorded Confirmed Type insulin glargine 100 unit/mL (3 20 units subcut DAILY@16 PRN 11/26/18 01/29/22 History mL) subcutaneous pen (Basaglar Novolog Pump Failure KwikPen U-100 Insulin) inhalational spacing device #1 ea 03/27/19 01/29/22 Rx (Aerochamber MV spacer) insulin pump controller 12/27/19 01/29/22 History comp.stocking,thigh,short,smal #2 ea 09/21/20 01/29/22 Rx fluticasone propionate 220 220 mcg inhalation QAM 02/12/21 01/29/22 History mcg/actuation HFA aerosol inhaler (Flovent HFA) trazodone 50 mg tablet 50 mg PO HS PRN Insomnia 02/12/21 01/29/22 History hydroxyzine HCl 25 mg tablet 25 mg PO DAILY PRN Anxiety 05/12/21 01/29/22 History cholecalciferol (vitamin D3) 50 100 mcg PO DAILY 07/04/21 01/29/22 History mcg (2,000 unit) capsule prenat.vits,mathieu,apv-ejya-kdtkg 1 tab PO QAM 07/04/21 01/29/22 History vitamin E (dl, acetate) 45 mg (100 45 mg PO QAM 07/04/21 01/29/22 History unit) capsule sodium chloride 1 gram tablet 1,000 mg PO BID PRN orthostatic 07/20/21 01/29/22 History hypotension acetone (urine) test (Ketostix #100 ea 08/09/21 01/29/22 Rx strips) glucagon 3 mg/actuation nasal spray 3 mg intranasal PRN hypoglycemia 08/09/21 01/29/22 Rx #2 ea insulin syringe-needle U-100 0.3 #100 ea 08/09/21 01/29/22 Rx mL 29 gauge x 1/2" (BD Insulin Syringe) brexpiprazole 1 mg tablet (Rexulti) 1 mg PO QAM 11/04/21 01/29/22 History linaclotide 72 mcg capsule 72 mcg PO DAILY PRN Constipation 11/04/21 01/29/22 History (Linzess) omega 9-guv-xnq-fish oil 1,000 mg 1 cap PO HS 11/04/21 01/29/22 History (120 mg-180 mg) capsule (Fish Oil) pantoprazole 40 mg tablet,delayed 40 mg PO BID 11/04/21 01/29/22 History release propranolol 60 mg capsule,24 60 mg PO HS #30 caps 11/22/21 01/29/22 Rx hr,extended release (Inderal LA) sertraline 50 mg tablet (Zoloft) 50 mg PO DAILY 12/12/21 01/29/22 History propranolol 10 mg tablet 10 mg PO BID PRN palpitations #60 01/16/22 01/29/22 Rx tabs onabotulinumtoxinA 200 unit See Rx Instructions IM .COMPLEX #1 01/17/22 01/29/22 Rx solution for injection (Botox) ea insulin aspart U-100 100 unit/mL 100 unit continuous subcutaneous 01/29/22 01/29/22 Rx subcutaneous solution infusion CONTINOUS 90 days #90 mL insulin aspart U-100 100 unit/mL See Rx Instructions .Route 01/29/22 01/29/22 Rx subcutaneous solution (Novolog .COMPLEX #10 mL U-100 Insulin aspart) insulin glargine 100 unit/mL 15 unit (0.15 mL) subcut 01/29/22 01/29/22 Rx subcutaneous solution (Lantus DAILY@1600 #10 mL U-100 Insulin) bupropion HCl 450 mg 24 hr tablet, 450 mg PO QAM 01/30/22 01/30/22 History extended release Family History Family History of: Bipolar Family Mental Health History Comment: Father - Bipolar Alcohol History Hx of Alcohol Use Over the Past 12 Months: No Smoking Use Have You Smoked or Used Tobacco Products in the Last 30 Days: No tobacco type: cigars Smoking Status: Former smoker Substance History Hx of Prescription Med Misuse Over the Past 12 Months: No Hx of Over the Counter Med Misuse Over the Past 12 Months: No Hx of Inhalent Misuse Over the Past 12 Months: No Hx of Organic Substance Use Over the Past 12 Months: No Hx of Illegal Substances/Street Drug Use Over Past 12 Months: No Problems as a Result of Past Substance Use: None Identified Personal History Living Arrangements: Apartment Highest Grade Completed: Vocational Training Marital Status: Single Beliefs That Will Affect Care: None Hx Traumatic Life Events: Yes Patient History Medical History Acid reflux disease (~2013) Allergic rhinitis Asthma . Borderline personality disorder . Celiac disease Chronic joint pain Depression Depression with suicidal ideation Diabetic gastroparesis associated with type 1 diabetes mellitus (~2016) DKA (diabetic ketoacidoses) Generalized anxiety disorder Gilbert's syndrome Intentional aspirin overdose Intentional overdose Irritable bowel syndrome with constipation Lumbar radiculopathy Migraines Osteopenia Osteoporosis POTS (postural orthostatic tachycardia syndrome) Type I diabetes mellitus (~2013) Followed by Endocrinology Surgical History History of cataract surgery bilateral History of colonoscopy History of esophagogastroduodenoscopy (EGD) History of strabismus surgery right Family History Mother Alcohol abuse Adult celiac disease Osteoporosis Seizure Celiac disease Father Skin cancer squamous cell Drug abuse Alcohol abuse Anxiety Seizure Grandfather Alcohol abuse Uncle Drug abuse Alcohol abuse Brother Drug abuse Unknown Cancer Grandmother Diabetes Colorectal cancer Celiac disease Grandmother Type 1 diabetes Other Bipolar 1 disorder No family history of adverse response to anesthesia Denies family history of Ovarian cancer Prostate cancer Myocardial infarction Breast cancer Lung cancer Hypertension Social History Smoking Status: Former smoker Tobacco Type: Cigarettes Age Started Using Tobacco: 18; Age Quit Using Tobacco: 20; Cigarettes Per Day: 1 per month; Second Hand Exposure: Yes; Hx Alcohol Use: No Hx Substance Use: No Preferred Language: Kyrgyz Communication Ability: Effective Visual Impairment: No Limitations Hearing Ability: Normal Butadiene Compressor Operator Required: No Beliefs That Will Affect Care: None marital status: Single Current Living Situation: Other Current Living Situation Comment: roommates current occupational status: employed 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 Feels Safe at Home: Yes Childhood Exposure to Second-Hand Smoke: Yes caffeine: Yes Dental Care, Regularly: Yes Physical Activity Frequency: 3-4 Times per Week Physical Activity Frequency Comment: walks Seatbelt Use: always Sunscreen Use: Yes (when in the sun for an extended time) Assistive Devices: Glasses Review of Systems Review of Systems: All systems reviewed & are unremarkable except as noted in HPI & below Physical Exam Psychiatric: Orientation: alert and oriented x 3 Apperance: appropriately dressed and appropriately groomed Eye Contact: good eye contact Motor Behavior: no abnormal motor movements Speech: normal rate/rhythm/volume of speech Affect: + depressed affect Mood: + depressed mood Thought Process: goal directed thought process Thought Content: reality based without delusions Suicidal Thoughts: denies suicidal intent (on unit); + reports suicidal thoughts and + reports suicidal plan (OD, "like these were just trials") Homicidal Thoughts: denies homicidal thoughts Hallucinations: no auditory hallucinations and no visual hallucinations Cognition: attention grossly intact and language grossly intact Estimated Intelligence: consistent with education level Insight: + limited insight Judgement: + limited judgement Vital Signs (Past 24 Hours): Last Vital Signs Temp 36.9 C 01/30/22 06:32 Pulse 109 H 01/30/22 06:33 Resp 16 01/30/22 06:32 BP 91/63 L 01/30/22 06:33 Pulse Ox 98 01/29/22 14:08 O2 Del Method 01/29/22 14:08 Exam Statement: A physical exam was performed on the med floor by Dr. Donis and again by Dr. Villagran for the purposes of medical clearance. I accept their physicals as correct and adequate for the purposes of the inpatient physical exam. Results & Data ([facility]) Laboratory Results Laboratory Results - last 24 hr 01/29/22 01/29/22 16:47 21:12 POC Glucose 238 H 219 H Current Inpatient Medications Current Inpatient Medications: Current Inpatient Medications Acetaminophen (Acetaminophen 325 Mg Tab) 650 mg PO Q4H PRN PRN Reason: Headache or Minor Fever Stop: 02/28/22 13:47 Al Hydrox/Mg Hydrox/Simethicone (Aluminum/Magnesium Susp 30 Ml Udc) 30 ml PO Q4H PRN PRN Reason: GI Upset Stop: 02/28/22 13:47 Bismuth Subsalicylate (Bismuth Subsalicylate Liqd 236 Ml) 15 ml PO PRN PRN PRN Reason: Loose Stool Stop: 02/28/22 13:47 Brexpiprazole (Brexpiprazole 1 Mg Tab) 1 mg PO Q24H RANDOLPH Stop: 03/01/22 08:59 Bupropion HCl (Bupropion Xl 150 Mg Tabcr) 450 mg PO DAILY R[facility]OLPH Stop: 03/01/22 08:59 Dextrose (Dextrose 50% 50 Ml Syringe) 25 - 50 ml IV UD PRN; Protocol PRN Reason: Hypoglycemia Protocol Stop: 02/28/22 14:44 Fish Oil (Wideman-3 (Purified Fish Oil) 1 Gm Cap) 1 gm PO HS RANDOLPH Stop: 02/28/22 21:59 Last Admin: 01/29/22 21:16 Dose: 1 gm Fluticasone Furoate (Fluticasone Furoate 200mcg 14 Puffs/Inhaler) 1 puffs INH DAILY RANDOLPH Stop: 03/01/22 08:59 Glucagon (Glucagon For Inj 1 Mg Vial) 1 mg IM UD PRN; Protocol PRN Reason: Hypoglycemia Protocol Stop: 02/28/22 14:44 Glucose (Glucose 40% Gel 15 Gm Tube) 15 - 30 gm PO UD PRN; Protocol PRN Reason: Hypoglycemia Protocol Stop: 02/28/22 14:44 Glucose (Glucose 10 Tab/Tube) 4 - 8 tab PO UD PRN; Protocol PRN Reason: Hypoglycemia Protocol Stop: 02/28/22 14:44 Hydroxyzine HCl (Hydroxyzine Hcl 25 Mg Tab) 50 mg PO HSZ PRN PRN Reason: Insomnia Stop: 02/28/22 13:47 Hydroxyzine HCl (Hydroxyzine Hcl 25 Mg Tab) 25 mg PO Q4H PRN PRN Reason: Anxiety Stop: 02/28/22 13:47 Insulin Aspart (Insulin Aspart Per Unit) 0 units SC ACHS [facility] Stop: 02/28/22 17:14 Last Admin: 01/29/22 21:24 Dose: 2 units Insulin Glargine (Lantus Per Unit Charge) 15 units SQ DAILY@1715 [facility] Stop: 02/28/22 17:14 Last Admin: 01/29/22 18:08 Dose: 15 units Linaclotide (Linaclotide 72 Mcg Capsule) 72 mcg PO DAILY PRN PRN Reason: Constipation Stop: 02/28/22 14:44 Magnesium Hydroxide (Magnesium Hydroxide Susp 30 Ml Udc) 30 ml PO DAILY PRN PRN Reason: Constipation Stop: 02/28/22 13:47 Miscellaneous (Carbohydrates For Hypoglycemia ) 15 - 30 gm PO UD PRN PRN Reason: Hypoglycemia Treatment Stop: 02/28/22 14:44 Miscellaneous Information (Pharmacy Glycemic Mgmt Consult) 1 each N/A UD PRN PRN Reason: Consult Stop: 02/28/22 14:24 Pantoprazole Sodium (Pantoprazole 40 Mg Tab) 40 mg PO BID RANDOLPH Stop: 02/28/22 20:59 Last Admin: 01/29/22 21:16 Dose: 40 mg Prenat Multivit/[place]/Iron/Folic Ac ( Vitamin 1 Tab) 1 tab PO QAM [facility]PH Stop: 03/01/22 08:59 Propranolol HCl (Propranolol Hcl 10 Mg Tab) 10 mg PO BID PRN PRN Reason: palpitations Stop: 02/28/22 14:44 Propranolol HCl (Propranolol Hcl 60 Mg [place]) 60 mg PO HS RANDOLPH Stop: 02/28/22 21:59 Last Admin: 01/29/22 21:19 Dose: Not Given Sertraline HCl (Sertraline Hcl 50 Mg Tablet) 50 mg PO DAILY R[facility]OLPH Stop: 03/01/22 08:59 Sodium Chloride (Sodium Chloride 0.65% Na Soln 45 Ml ([place])) 1 - 2 sprays NA PRN PRN PRN Reason: Nasal Dryness/Congestion Stop: 02/28/22 13:47 Sodium Chloride (Sodium Chloride 1 Gm Tablet) 1 gm PO BID PRN PRN Reason: DIZZINESS Stop: 02/28/22 14:44 Trazodone HCl (Trazodone Hcl 50 Mg Tab) 50 mg PO HS PRN PRN Reason: Insomnia Stop: 02/28/22 14:44 Vitamin D (Cholecalciferol 1,000 Units 25 Mcg Tab) 4,000 units PO DAILY RANDOLPH Stop: 03/01/22 08:59 Vitamin E (Tocopheryl, Dl-Alpha 100 Units Cap) 100 units PO QAM [facility]OLPH Stop: 03/01/22 08:59
[2022-01-30] MEDS ORDERED: FLUTICASONE FUROATE 100MCG 14 PUFFS/INHALER INH SCH (09:00)
--- NOTE | 2022-01-30 09:06 | Pharmacy Report ---
Pharmacy Glycemic Short Note 2 - Date of Service January 30, 2022 - Glycemic Short BSG Results (Last 24 hours): 01/29/22 01/29/22 01/30/22 16:47 21:12 08:32 POC Glucose 238 H 219 H 173 H OUTPATIENT ANTIDIABETIC REGIMEN: * Novolog Insulin Pump ~ 60 units total per day * HbA1c = 9.5% (01/27/22) ASSESSMENT: 01/30 * Patient now admitted to mental health unit following yesterday's transfer * 29 units SQ insulin given over last 24 hrs while tolerating a diet * Prior inpatient records reviewed. Basal insulin needs typically range 15-20 units per day. Fasting BSG 173 this AM with 15 units basal on board. Pt did have a BSG drop to 78 following receipt of 20 units basal on 01/28 however she also received 4 units correctional insulin overnight which likely contributed. Will cautiously increase basal dose today given historical data. * Novolog historically has been more difficult to dose for this patient. Past patterns suggest she requires larger prandial insulin doses with breakfast and lunch and smaller doses with dinner and HS correction. 01/29 * Admitted 01/27/22 secondary to intentional overdose. Pharmacy was consulted that day for assistance with inpatient glycemic management. * Pump taken off. BSG was 404 mg/dL. Received 15 units Lantus + 12 units Novolog on Saturday. Received 20 units Lantus + 22 units Novolog on Saturday. BSGs ranged 140-379 mg/dL. * Plan is for transfer to inpatient psych facility. Will need stable BSGs off pump prior to discharge. * Fasting BSG was 100 mg/dL this AM. Will reduced Lantus today. Tightened carb ratio slightly this AM. PLAN FOR INPATIENT GLYCEMIC CONTROL: * Continue to hold insulin pump * Basal insulin * Lantus 17 units SC daily with evening meal * Bolus insulin * NovoLog per scale ACHS or Q6hrs while NPO * Goal Range: Low 110 mg/dL - High 140 mg/dL * Correction Factor: 50 mg/dL/unit * Nutritional / Prandial insulin per carb ratio of 1 unit per 8 grams CHO consumed with breakfast and lunch, 1 unit per 9 grams CHO with dinner and HS
[2022-01-30] MEDS ORDERED: PROPRANOLOL HCL 20 MG TAB PO STA (09:34)
[2022-01-30] MEDS: INSULIN ASPART PER UNIT SC SCH ×4 (09:35→21:32)
[2022-01-30] MEDS: BREXPIPRAZOLE 1 MG TAB PO SCH (09:36)
[2022-01-30] MEDS: buPROPion XL 150 MG TABCR PO SCH ×2 (09:37→15:14)
[2022-01-30] MEDS: FLUTICASONE FUROATE 200MCG 14 PUFFS/INHALER INH SCH (09:38)
[2022-01-30] MEDS: TOCOPHERYL, DL-ALPHA 100 UNITS CAP PO SCH (09:38)
[2022-01-30] MEDS: CHOLECALCIFEROL 1,000 UNITS 25 MCG TAB PO SCH (09:38)
[2022-01-30] MEDS: PANTOprazole 40 MG TAB PO SCH ×2 (09:39→21:36)
[2022-01-30] MEDS: SERTRALINE HCL 50 MG TABLET PO SCH (09:39)
[2022-01-30] MEDS: PRENATAL VITAMIN 1 TAB PO SCH (09:39)
[2022-01-30] MEDS: POLYETHYLENE (MIRALAX) 17 GM PACK PO SCH (10:13)
[2022-01-30] MEDS: PROPRANOLOL HCL 20 MG TAB PO SCH ×2 (10:14→21:37)
[2022-01-30] MEDS: buPROPion XL 300 MG TABCR PO SCH (12:52)
[2022-01-30] MEDS: LANTUS PER UNIT CHARGE SQ SCH (18:17)
[2022-01-30] MEDS: OMEGA-3 (PURIFIED FISH OIL) 1 GM CAP PO SCH (21:37)
[2022-01-31] MEDS: BREXPIPRAZOLE 1 MG TAB PO SCH (08:48)
[2022-01-31] MEDS: buPROPion XL 300 MG TABCR PO SCH (08:48)
[2022-01-31] MEDS: CHOLECALCIFEROL 1,000 UNITS 25 MCG TAB PO SCH (08:48)
[2022-01-31] MEDS: TOCOPHERYL, DL-ALPHA 100 UNITS CAP PO SCH (08:49)
[2022-01-31] MEDS: PRENATAL VITAMIN 1 TAB PO SCH (08:49)
[2022-01-31] MEDS: FLUTICASONE FUROATE 200MCG 14 PUFFS/INHALER INH SCH (08:49)
[2022-01-31] MEDS: PANTOprazole 40 MG TAB PO SCH ×2 (08:49→20:40)
[2022-01-31] MEDS: PROPRANOLOL HCL 20 MG TAB PO SCH ×2 (08:50→20:40)
[2022-01-31] MEDS: POLYETHYLENE (MIRALAX) 17 GM PACK PO SCH (08:54)
[2022-01-31] MEDS ORDERED: POLYETHYLENE (MIRALAX) 17 GM PACK PO SCH (09:00)
[2022-01-31] MEDS: INSULIN ASPART PER UNIT SC SCH ×4 (09:12→20:45)
[2022-01-31] MEDS: SERTRALINE HCL 50 MG TABLET PO SCH (10:06)
[2022-01-31] MEDS ORDERED: ONDANSETRON 4 MG OD TAB PO PRN (14:33)
[2022-01-31] MEDS: linaCLOtide 72 MCG CAPSULE PO SCH (15:19)
--- NOTE | 2022-01-31 15:40 | Psychiatric Progress Note ---
Date of Service January 31, 2022 Impression / Recommendations Impression 26 yo non-binary patient with chronic SI/SIB, high risk due to access to insulilln/BP meds with medical knowledge, s/p ASA OD. (1) Depression: (2) Borderline personality disorder: (3) Eating disorder: (4) Type I diabetes mellitus: (5) POTS (postural orthostatic tachycardia syndrome): (6) Suicide attempt: Plan 01/31/22: patient having some N due to Zoloft, requesting Zofran. 01/30/22: The patient was admitted to the [facility] on q15 min checks (behavioral with suicide precautions) for safety. The patient will participate in group, recreational, and milieu therapies and will be offered additional individual and family sessions as clinically appropriate. J is typically switched to shorter acting propranolol while inpatient as less splitting over parameters. Patient has glycemic pharmacy consult and has been cooperative thus far with staff/unit routine. Dietary consult. Suicide Risk Level Suicide Risk Level: High-Moderate (q15 min suicide checks) Risk Factors Assessment : Yes Do You Have Access To A Gun?: Yes (landlord/housemate has firearm) Health Problems: Yes Mental Health Diagnoses: Yes Previous Attempt: Yes Previous Psychiatric Hospitalization: Yes Protective Factors Assessment Employed: Yes Good Rapport with Provider: Yes (psych clinic, CM) Interval History Identifying Information MAYA MEYERS is a 26-year-old biologic F who identifies as non-binary J or Yola preferring "they/them" pronouns. They have a history of multiple inpatient admits for SI/SIB, include a stay in October 2021 for an ASA OD. They were admitted to the medical floor on 01/27/22 s/p ASA OD and was medically cleared for discharge/admission to on 01/29/22 13:07 on a 201 voluntary commitment. Chief Complaint "I guess I feel like I get put on the back burner alot" Review of Systems Sleep Information Total Hours of Sleep: 6.5 Meal Information Percent Meal Consumed - Breakfast: 50 Percent Meal Consumed - Lunch: 50 Percent Meal Consumed - Dinner: 75 Subjective Subjective Patient was seen & assessed and interval progress reviewed with treatment team. Is resistant to meeting with CM. Hasn't told their landlord they are hospitalized as "I don't want a parental relationship" then discussed how they feel aunt doesn't come to visit/think of her as she does her own children. Discussed job and remains resistant to any discussion around building a life worth living and makes provocative statements at any positive feedback/reinforcement that "I can do that and still want to down pills". Is very deliberate with use of ASA for OD as doesn't want to of an arrythmia as views as painful. Physical Exam Psychiatric Orientation: alert and oriented x 3 Apperance: appropriately dressed and appropriately groomed Eye Contact: good eye contact Motor Behavior: no abnormal motor movements Speech: normal rate/rhythm/volume of speech Affect: + depressed affect Mood: + depressed mood Thought Process: goal directed thought process Thought Content: reality based without delusions Suicidal Thoughts: denies suicidal intent (on unit); + reports suicidal thoughts and + reports suicidal plan (OD) Homicidal Thoughts: denies homicidal thoughts Hallucinations: no auditory hallucinations and no visual hallucinations Cognition: attention grossly intact and language grossly intact Estimated Intelligence: consistent with education level Insight: + limited insight Judgement: + limited judgement Vital Signs (Past 24 Hours) Last Vital Signs Temp 36.8 C 01/31/22 06:45 Pulse 86 01/31/22 06:45 Resp 16 01/31/22 06:45 BP 103/71 01/31/22 06:45 Pulse Ox 98 01/29/22 14:08 O2 Del Method 01/29/22 14:08 Results & Data ([facility]) Laboratory Results Laboratory Results - last 24 hr 01/30/22 01/30/22 01/31/22 17:09 21:16 08:42 POC Glucose 77 175 H 70 01/31/22 12:31 POC Glucose 107 H Current Inpatient Medications Current Inpatient Medications: Current Inpatient Medications Acetaminophen (Acetaminophen 325 Mg Tab) 650 mg PO Q4H PRN PRN Reason: Headache or Minor Fever Stop: 02/28/22 13:47 Al Hydrox/Mg Hydrox/Simethicone (Aluminum/Magnesium Susp 30 Ml Udc) 30 ml PO Q4H PRN PRN Reason: GI Upset Stop: 02/28/22 13:47 Bismuth Subsalicylate (Bismuth Subsalicylate Liqd 236 Ml) 15 ml PO PRN PRN PRN Reason: Loose Stool Stop: 02/28/22 13:47 Brexpiprazole (Brexpiprazole 1 Mg Tab) 1 mg PO Q24H R[facility]OLPH Stop: 03/01/22 08:59 Last Admin: 01/31/22 08:48 Dose: 1 mg Bupropion HCl (Bupropion Xl 300 Mg Tabcr) 300 mg PO DAILY R[facility]OLPH Stop: 03/02/22 08:59 Last Admin: 01/31/22 08:48 Dose: 300 mg Dextrose (Dextrose 50% 50 Ml Syringe) 25 - 50 ml IV UD PRN; Protocol PRN Reason: Hypoglycemia Protocol Stop: 02/28/22 14:44 Fish Oil ([place]-3 (Purified Fish Oil) 1 Gm Cap) 1 gm PO HS RANDOLPH Stop: 02/28/22 21:59 Last Admin: 01/30/22 21:37 Dose: 1 gm Fluticasone Furoate (Fluticasone Furoate 200mcg 14 Puffs/Inhaler) 1 puffs INH DAILY R[facility]OLPH Stop: 03/01/22 08:59 Last Admin: 01/31/22 08:49 Dose: 1 puffs Glucagon (Glucagon For Inj 1 Mg Vial) 1 mg IM UD PRN; Protocol PRN Reason: Hypoglycemia Protocol Stop: 02/28/22 14:44 Glucose (Glucose 40% Gel 15 Gm Tube) 15 - 30 gm PO UD PRN; Protocol PRN Reason: Hypoglycemia Protocol Stop: 02/28/22 14:44 Glucose (Glucose 10 Tab/Tube) 4 - 8 tab PO UD PRN; Protocol PRN Reason: Hypoglycemia Protocol Stop: 02/28/22 14:44 Hydroxyzine HCl (Hydroxyzine Hcl 25 Mg Tab) 50 mg PO HSZ PRN PRN Reason: Insomnia Stop: 02/28/22 13:47 Hydroxyzine HCl (Hydroxyzine Hcl 25 Mg Tab) 25 mg PO Q4H PRN PRN Reason: Anxiety Stop: 02/28/22 13:47 Insulin Aspart (Insulin Aspart Per Unit) 0 units SC ACHS RANDOLPH Stop: 03/02/22 11:59 Last Admin: 01/31/22 12:55 Dose: 2 units Insulin Glargine (Lantus Per Unit Charge) 17 units SQ DAILY@1715 [facility] Stop: 03/01/22 17:14 Last Admin: 01/30/22 18:17 Dose: 17 units Linaclotide (Linaclotide 72 Mcg Capsule) 72 mcg PO DAILY RANDOLPH Stop: 03/02/22 14:44 Last Admin: 01/31/22 15:19 Dose: 72 mcg Magnesium Hydroxide (Magnesium Hydroxide Susp 30 Ml Udc) 30 ml PO DAILY PRN PRN Reason: Constipation Stop: 02/28/22 13:47 Miscellaneous (Carbohydrates For Hypoglycemia ) 15 - 30 gm PO UD PRN PRN Reason: Hypoglycemia Treatment Stop: 02/28/22 14:44 Miscellaneous Information (Pharmacy Glycemic Mgmt Consult) 1 each N/A UD PRN PRN Reason: Consult Stop: 02/28/22 14:24 Ondansetron HCl (Ondansetron 4 Mg Od Tab) 4 mg PO Q6H PRN PRN Reason: Nausea Stop: 03/02/22 14:32 Pantoprazole Sodium (Pantoprazole 40 Mg Tab) 40 mg PO BID RANDOLPH Stop: 02/28/22 20:59 Last Admin: 01/31/22 08:49 Dose: 40 mg Polyethylene Glycol (Polyethylene (Miralax) 17 Gm Pack) 17 gm PO DAILY RANDOLPH Stop: 03/01/22 09:39 Last Admin: 01/31/22 08:54 Dose: 17 gm Prenat Multivit/[place]rywall Application Supervisor/Iron/Folic Ac ( Vitamin 1 Tab) 1 tab PO QAM R[place]OLPH Stop: 03/01/22 08:59 Last Admin: 01/31/22 08:49 Dose: 1 tab Propranolol HCl (Propranolol Hcl 10 Mg Tab) 10 mg PO BID PRN PRN Reason: palpitations Stop: 02/28/22 14:44 Propranolol HCl (Propranolol Hcl 20 Mg Tab) 20 mg PO BID R[facility]OLPH Stop: 03/01/22 09:44 Last Admin: 01/31/22 08:50 Dose: 20 mg Sertraline HCl (Sertraline Hcl 50 Mg Tablet) 50 mg PO DAILY R[facility]OLPH Stop: 03/01/22 08:59 Last Admin: 01/31/22 10:06 Dose: 50 mg Sodium Chloride (Sodium Chloride 0.65% Na Soln 45 Ml ([place])) 1 - 2 sprays NA PRN PRN PRN Reason: Nasal Dryness/Congestion Stop: 02/28/22 13:47 Sodium Chloride (Sodium Chloride 1 Gm Tablet) 1 gm PO BID PRN PRN Reason: DIZZINESS Stop: 02/28/22 14:44 Trazodone HCl (Trazodone Hcl 50 Mg Tab) 50 mg PO HS PRN PRN Reason: Insomnia Stop: 02/28/22 14:44 Vitamin D (Cholecalciferol 1,000 Units 25 Mcg Tab) 4,000 units PO DAILY RANDOLPH Stop: 03/01/22 08:59 Last Admin: 01/31/22 08:48 Dose: 4,000 units Vitamin E (Tocopheryl, Dl-Alpha 100 Units Cap) 100 units PO QAM R[facility]PH Stop: 03/01/22 08:59 Last Admin: 01/31/22 08:49 Dose: 100 units Mental Health & Subst Abuse Tx Psychiatrist Name of Psychiatrist: [facility] - Dr. Annette Sahu Psychiatrist's Date of Appointment with Psychiatrist: 02/13/22 Time of Appointment with Psychiatrist: 9:00 AM Psychiatric Appointment Comment: [address] [place], [place] [id number] [id number] Therapist Name of Therapist: [facility] - [facility] Lumber Checker Name of Lumber Checker: Nani Altamirano Phone Number for Lumber Checker: [phone] Post Discharge Appointments Primary Care Physician Name Of Family Doctor: Desirae Evans PA-C (for follow-up) Primary Care Date of Appointment with PCP: 02/07/22 Time of Appointment with PCP: 11:45 AM Provider Appointment Comment: [address] [facility] [place] [address] Contact Information Discharge Discharge Address: [address] [place] [id number] (1) Type I diabetes mellitus Diabetes mellitus complication status: with other specified complication Qualified Code(s): E10.69 - Type 1 diabetes mellitus with other specified complication
[2022-01-31] MEDS: LANTUS PER UNIT CHARGE SQ SCH (17:40)
[2022-01-31] MEDS: OMEGA-3 (PURIFIED FISH OIL) 1 GM CAP PO SCH (20:40)
[2022-02-01] MEDS: INSULIN ASPART PER UNIT SC SCH ×4 (09:15→20:37)
[2022-02-01] MEDS: BREXPIPRAZOLE 1 MG TAB PO SCH (09:31)
[2022-02-01] MEDS: CHOLECALCIFEROL 1,000 UNITS 25 MCG TAB PO SCH (09:32)
[2022-02-01] MEDS: buPROPion XL 300 MG TABCR PO SCH (09:32)
[2022-02-01] MEDS: FLUTICASONE FUROATE 200MCG 14 PUFFS/INHALER INH SCH (09:33)
[2022-02-01] MEDS: TOCOPHERYL, DL-ALPHA 100 UNITS CAP PO SCH (09:33)
[2022-02-01] MEDS: PROPRANOLOL HCL 20 MG TAB PO SCH ×2 (09:34→20:45)
[2022-02-01] MEDS: POLYETHYLENE (MIRALAX) 17 GM PACK PO SCH (09:34)
[2022-02-01] MEDS: linaCLOtide 72 MCG CAPSULE PO SCH (09:34)
[2022-02-01] MEDS: PANTOprazole 40 MG TAB PO SCH ×2 (09:34→20:36)
[2022-02-01] MEDS: PRENATAL VITAMIN 1 TAB PO SCH (09:34)
[2022-02-01] MEDS: SERTRALINE HCL 50 MG TABLET PO SCH (09:35)
--- NOTE | 2022-02-01 12:27 | Pharmacy Report ---
Pharmacy Glycemic Short Note 2 - Date of Service February 01, 2022 - Glycemic Short BSG Results (Last 24 hours): 01/31/22 01/31/22 01/31/22 12:31 16:58 20:17 POC Glucose 107 H 124 H 171 H 02/01/22 02/01/22 02/01/22 00:51 01:08 08:23 POC Glucose 58 L* 127 H 265 H 02/01/22 12:13 POC Glucose 113 H OUTPATIENT ANTIDIABETIC REGIMEN: * Novolog Insulin Pump ~ 60 units total per day * HbA1c = 9.5% (01/27/22) ASSESSMENT: 02/01/22 * Patient's BSGs yesterday were [phone] mg/dL. Patient had a mild hypoglycemic event around midnight which resolved with OJ. * Fasting today is 265 mg/dL but lunch trended downwards to 113 mg/dL. * Yesterday this pharmacist spoke with the patient about their glycemic care. Reviewed current dosing and adjusted Novolog slightly. * Patient happy with Lantus dosing and change to Novolog. 01/30 * Patient now admitted to mental health unit following yesterday's transfer * 29 units SQ insulin given over last 24 hrs while tolerating a diet * Prior inpatient records reviewed. Basal insulin needs typically range 15-20 units per day. Fasting BSG 173 this AM with 15 units basal on board. Pt did have a BSG drop to 78 following receipt of 20 units basal on 01/28 however she also received 4 units correctional insulin overnight which likely contributed. Will cautiously increase basal dose today given historical data. * Novolog historically has been more difficult to dose for this patient. Past patterns suggest she requires larger prandial insulin doses with breakfast and lunch and smaller doses with dinner and HS correction. 01/29 * Admitted 01/27/22 secondary to intentional overdose. Pharmacy was consulted that day for assistance with inpatient glycemic management. * Pump taken off. BSG was 404 mg/dL. Received 15 units Lantus + 12 units Novolog on Saturday. Received 20 units Lantus + 22 units Novolog on Saturday. BSGs ranged 140-379 mg/dL. * Plan is for transfer to inpatient psych facility. Will need stable BSGs off pump prior to discharge. * Fasting BSG was 100 mg/dL this AM. Will reduced Lantus today. Tightened carb ratio slightly this AM. PLAN FOR INPATIENT GLYCEMIC CONTROL: * Continue to hold insulin pump * Basal insulin * Lantus 17 units SC daily with evening meal * Bolus insulin * NovoLog per scale ACHS or Q6hrs while NPO * Goal Range: Low 110 mg/dL - High 140 mg/dL * Correction Factor: 50 mg/dL/unit * Nutritional / Prandial insulin per carb ratio of 1 unit per 8 grams CHO consumed
--- NOTE | 2022-02-01 13:19 | Psychiatric Progress Note ---
Date of Service February 01, 2022 Impression / Recommendations Impression 26 yo non-binary patient with chronic SI/SIB, high risk due to access to insulilln/BP meds with medical knowledge, s/p ASA OD. 02/01/22: ongoing chronic SI with rigidity in interactions. (1) Depression: (2) Borderline personality disorder: (3) Eating disorder: (4) Type I diabetes mellitus: (5) POTS (postural orthostatic tachycardia syndrome): (6) Suicide attempt: Plan 02/01/22: outpatient provider confirms not taking medications consistently prior to admission, particularly Zoloft as getting short supplies and hasn't been calling for refills. Appointments very sporadic. 01/31/22: patient having some N due to Zoloft, requesting Zofran. 01/30/22: The patient was admitted to the [facility] ([facility]) on q15 min checks (behavioral with suicide precautions) for safety. The patient will participate in group, recreational, and milieu therapies and will be offered additional individual and family sessions as clinically appropriate. J is typically switched to shorter acting propranolol while inpatient as less splitting over parameters. Patient has glycemic pharmacy consult and has been cooperative thus far with staff/unit routine. Dietary consult. Suicide Risk Level Suicide Risk Level: High-Moderate (q15 min suicide checks) Risk Factors Assessment : Yes Do You Have Access To A Gun?: Yes (landlord/housemate has firearm) Health Problems: Yes Mental Health Diagnoses: Yes Previous Attempt: Yes Previous Psychiatric Hospitalization: Yes Protective Factors Assessment Employed: Yes Good Rapport with Provider: Yes (psych clinic, ) Interval History Identifying Information MAYA MEYERS is a 26-year-old biologic F who identifies as non-binary J or Yola preferring "they/them" pronouns. They have a history of multiple inpatient admits for SI/SIB, include a stay in October 2021 for an ASA OD. They were admitted to the medical floor on 01/27/22 s/p ASA OD and was medically cleared for discharge/admission to on 01/29/22 13:07 on a 201 voluntary commitment. Chief Complaint "I feel like I'm going to have a meltdown today, I'm tired of being so emotionally restrained." Review of Systems Sleep Information Total Hours of Sleep: 8 Sleep Comments: awake for low blood sugar around 1am Meal Information Percent Meal Consumed - Breakfast: 80 Percent Meal Consumed - Lunch: 50 Percent Meal Consumed - Dinner: 25 Subjective Subjective Patient was seen & assessed and interval progress reviewed with nursing and social work. Patient continues with comments on unit routines/rules. Blocked a peer from sitting with her from lunch. Stated that there is no growth from trauma which halted peer discussion in group. Has been resistant to involving therapeutic case manager in stay and splitting with regards to their phone session/appointment scheduling. May be willing to titrate Rexulti. [place]patient [place] and was contacted re: possible increase in Rexulti; would not support Spravato referral. Physical Exam Psychiatric Orientation: alert and oriented x 3 Apperance: appropriately dressed and appropriately groomed Eye Contact: good eye contact Motor Behavior: no abnormal motor movements Speech: normal rate/rhythm/volume of speech Affect: + depressed affect Mood: + depressed mood Thought Process: goal directed thought process Thought Content: reality based without delusions Suicidal Thoughts: denies suicidal intent (on unit); + reports suicidal thoughts and + reports suicidal plan (OD) Homicidal Thoughts: denies homicidal thoughts Hallucinations: no auditory hallucinations and no visual hallucinations Cognition: attention grossly intact and language grossly intact Estimated Intelligence: consistent with education level Insight: + limited insight Judgement: + limited judgement Vital Signs (Past 24 Hours) Last Vital Signs Temp 36.8 C 02/01/22 06:45 Pulse 93 H 02/01/22 09:08 Resp 18 02/01/22 09:08 BP 112/81 02/01/22 09:08 Pulse Ox 98 01/29/22 14:08 O2 Del Method 01/29/22 14:08 Results & Data ([facility]) Laboratory Results Laboratory Results - last 24 hr 01/31/22 01/31/22 02/01/22 16:58 20:17 00:51 POC Glucose 124 H 171 H 58 L* 02/01/22 02/01/22 02/01/22 01:08 08:23 12:13 POC Glucose 127 H 265 H 113 H Current Inpatient Medications Current Inpatient Medications: Current Inpatient Medications Acetaminophen (Acetaminophen 325 Mg Tab) 650 mg PO Q4H PRN PRN Reason: Headache or Minor Fever Stop: 02/28/22 13:47 Al Hydrox/Mg Hydrox/Simethicone (Aluminum/Magnesium Susp 30 Ml Udc) 30 ml PO Q4H PRN PRN Reason: GI Upset Stop: 02/28/22 13:47 Bismuth Subsalicylate (Bismuth Subsalicylate Liqd 236 Ml) 15 ml PO PRN PRN PRN Reason: Loose Stool Stop: 02/28/22 13:47 Brexpiprazole (Brexpiprazole 1 Mg Tab) 1 mg PO Q24H R[facility]OLPH Stop: 03/01/22 08:59 Last Admin: 02/01/22 09:31 Dose: 1 mg Bupropion HCl (Bupropion Xl 300 Mg Tabcr) 300 mg PO DAILY RANDOLPH Stop: 03/02/22 08:59 Last Admin: 02/01/22 09:32 Dose: 300 mg Dextrose (Dextrose 50% 50 Ml Syringe) 25 - 50 ml IV UD PRN; Protocol PRN Reason: Hypoglycemia Protocol Stop: 02/28/22 14:44 Fish Oil ([place]-3 (Purified Fish Oil) 1 Gm Cap) 1 gm PO HS RANDOLPH Stop: 02/28/22 21:59 Last Admin: 01/31/22 20:40 Dose: 1 gm Fluticasone Furoate (Fluticasone Furoate 200mcg 14 Puffs/Inhaler) 1 puffs INH DAILY R[facility]OLPH Stop: 03/01/22 08:59 Last Admin: 02/01/22 09:33 Dose: 1 puffs Glucagon (Glucagon For Inj 1 Mg Vial) 1 mg IM UD PRN; Protocol PRN Reason: Hypoglycemia Protocol Stop: 02/28/22 14:44 Glucose (Glucose 40% Gel 15 Gm Tube) 15 - 30 gm PO UD PRN; Protocol PRN Reason: Hypoglycemia Protocol Stop: 02/28/22 14:44 Glucose (Glucose 10 Tab/Tube) 4 - 8 tab PO UD PRN; Protocol PRN Reason: Hypoglycemia Protocol Stop: 02/28/22 14:44 Hydroxyzine HCl (Hydroxyzine Hcl 25 Mg Tab) 50 mg PO HSZ PRN PRN Reason: Insomnia Stop: 02/28/22 13:47 Hydroxyzine HCl (Hydroxyzine Hcl 25 Mg Tab) 25 mg PO Q4H PRN PRN Reason: Anxiety Stop: 02/28/22 13:47 Insulin Aspart (Insulin Aspart Per Unit) 0 units SC ACHS RANDOLPH Stop: 03/02/22 11:59 Last Admin: 02/01/22 09:15 Dose: 7 units Insulin Glargine (Lantus Per Unit Charge) 17 units SQ DAILY@1715 [facility] Stop: 03/01/22 17:14 Last Admin: 01/31/22 17:40 Dose: 17 units Linaclotide (Linaclotide 72 Mcg Capsule) 72 mcg PO DAILY [facility] Stop: 03/02/22 14:44 Last Admin: 02/01/22 09:34 Dose: 72 mcg Magnesium Hydroxide (Magnesium Hydroxide Susp 30 Ml Udc) 30 ml PO DAILY PRN PRN Reason: Constipation Stop: 02/28/22 13:47 Miscellaneous (Carbohydrates For Hypoglycemia ) 15 - 30 gm PO UD PRN PRN Reason: Hypoglycemia Treatment Stop: 02/28/22 14:44 Last Admin: 02/01/22 01:14 Dose: 15 gm Miscellaneous Information (Pharmacy Glycemic Mgmt Consult) 1 each N/A UD PRN PRN Reason: Consult Stop: 02/28/22 14:24 Ondansetron HCl (Ondansetron 4 Mg Od Tab) 4 mg PO Q6H PRN PRN Reason: Nausea Stop: 03/02/22 14:32 Last Admin: 02/01/22 08:45 Dose: 4 mg Pantoprazole Sodium (Pantoprazole 40 Mg Tab) 40 mg PO BID [facility] Stop: 02/28/22 20:59 Last Admin: 02/01/22 09:34 Dose: 40 mg Polyethylene Glycol (Polyethylene (Miralax) 17 Gm Pack) 17 gm PO DAILY [facility] Stop: 03/01/22 09:39 Last Admin: 02/01/22 09:34 Dose: 17 gm Prenat Multivit/[place]/Iron/Folic Ac ( Vitamin 1 Tab) 1 tab PO QAM [facility] Stop: 03/01/22 08:59 Last Admin: 02/01/22 09:34 Dose: 1 tab Propranolol HCl (Propranolol Hcl 10 Mg Tab) 10 mg PO BID PRN PRN Reason: palpitations Stop: 02/28/22 14:44 Propranolol HCl (Propranolol Hcl 20 Mg Tab) 20 mg PO BID [facility] Stop: 03/01/22 09:44 Last Admin: 02/01/22 09:34 Dose: 20 mg Sertraline HCl (Sertraline Hcl 50 Mg Tablet) 50 mg PO DAILY [facility] Stop: 03/01/22 08:59 Last Admin: 02/01/22 09:35 Dose: 50 mg Sodium Chloride (Sodium Chloride 0.65% Na Soln 45 Ml ([place])) 1 - 2 sprays NA PRN PRN PRN Reason: Nasal Dryness/Congestion Stop: 02/28/22 13:47 Sodium Chloride (Sodium Chloride 1 Gm Tablet) 1 gm PO BID PRN PRN Reason: DIZZINESS Stop: 02/28/22 14:44 Trazodone HCl (Trazodone Hcl 50 Mg Tab) 50 mg PO HS PRN PRN Reason: Insomnia Stop: 02/28/22 14:44 Vitamin D (Cholecalciferol 1,000 Units 25 Mcg Tab) 4,000 units PO DAILY [facility] Stop: 03/01/22 08:59 Last Admin: 02/01/22 09:32 Dose: 4,000 units Vitamin E (Tocopheryl, Dl-Alpha 100 Units Cap) 100 units PO QAM [facility] Stop: 03/01/22 08:59 Last Admin: 02/01/22 09:33 Dose: 100 units Mental Health & Subst Abuse Tx Psychiatrist Name of Psychiatrist: [facility] - Dr. Annette Sahu Psychiatrist's Date of Appointment with Psychiatrist: 02/13/22 Time of Appointment with Psychiatrist: 9:00 AM Psychiatric Appointment Comment: [address] [facility] [place] [address] Therapist Name of Therapist: [facility] - [facility] Therapist's Date of Therapist Appointment: 02/06/22 Time of Therapist Appointment: 10 AM Therapy Appointment Comment: [address] [facility] [place] [address] Bow String Maker Name of Bow String Maker: Nani Altamirano Phone Number for Bow String Maker: [phone] Post Discharge Appointments Primary Care Physician Name Of Family Doctor: Desirae Evans PA-C (for follow-up) Primary Care Date of Appointment with PCP: 02/07/22 Time of Appointment with PCP: 11:45 AM Provider Appointment Comment: [address] [place] [address] Contact Information Discharge Discharge Address: [address] [place] [phone] (1) Type I diabetes mellitus Diabetes mellitus complication status: with other specified complication Qualified Code(s): E10.69 - Type 1 diabetes mellitus with other specified complication
[2022-02-01] MEDS: LANTUS PER UNIT CHARGE SQ SCH (17:58)
[2022-02-01] MEDS: OMEGA-3 (PURIFIED FISH OIL) 1 GM CAP PO SCH (20:36)
--- NOTE | 2022-02-02 08:59 | Pharmacy Report ---
Pharmacy Glycemic Short Note 2 - Date of Service February 02, 2022 - Glycemic Short BSG Results (Last 24 hours): 02/01/22 02/01/22 02/01/22 12:13 17:13 20:19 POC Glucose 113 H 146 H 215 H 02/02/22 08:46 POC Glucose 231 H OUTPATIENT ANTIDIABETIC REGIMEN: * Novolog Insulin Pump ~ 60 units total per day * HbA1c = 9.5% (01/27/22) ASSESSMENT: 02/02: * Patient prefers that pharmacy check in prior to making any dosing changes. * Received 39 units of insulin yesterday (17 units basal + 22 units bolus) * BSGs adequate: [phone] mg/dL * Fasting BSG improved to 231 mg/dL today. * No changes necessary. 02/01: * Patient's BSGs yesterday were [phone] mg/dL. Patient had a mild hypoglycemic event around midnight which resolved with OJ. * Fasting today is 265 mg/dL but lunch trended downwards to 113 mg/dL. * Yesterday this pharmacist spoke with the patient about their glycemic care. Reviewed current dosing and adjusted Novolog slightly. * Patient happy with Lantus dosing and change to Novolog. PLAN FOR INPATIENT GLYCEMIC CONTROL: * Continue to hold insulin pump * Basal insulin * Lantus 17 units SC daily with evening meal * Bolus insulin * NovoLog per scale ACHS or Q6hrs while NPO * Goal Range: Low 110 mg/dL - High 150 mg/dL * Correction Factor: 50 mg/dL/unit * Nutritional / Prandial insulin per carb ratio of 1 unit per 8 grams CHO consumed
[2022-02-02] MEDS: FLUTICASONE FUROATE 200MCG 14 PUFFS/INHALER INH SCH (09:29)
[2022-02-02] MEDS: BREXPIPRAZOLE 1 MG TAB PO SCH (09:29)
[2022-02-02] MEDS: CHOLECALCIFEROL 1,000 UNITS 25 MCG TAB PO SCH (09:31)
[2022-02-02] MEDS: linaCLOtide 72 MCG CAPSULE PO SCH (09:31)
[2022-02-02] MEDS: PANTOprazole 40 MG TAB PO SCH (09:31)
[2022-02-02] MEDS: buPROPion XL 300 MG TABCR PO SCH (09:31)
[2022-02-02] MEDS: TOCOPHERYL, DL-ALPHA 100 UNITS CAP PO SCH (09:31)
[2022-02-02] MEDS: PRENATAL VITAMIN 1 TAB PO SCH (09:31)
[2022-02-02] MEDS: POLYETHYLENE (MIRALAX) 17 GM PACK PO SCH (09:32)
[2022-02-02] MEDS: SERTRALINE HCL 50 MG TABLET PO SCH (09:32)
[2022-02-02] MEDS: INSULIN ASPART PER UNIT SC SCH (09:43)
[2022-02-02] MEDS: PROPRANOLOL HCL 20 MG TAB PO SCH (09:51)
--- NOTE | 2022-02-02 09:57 | Discharge Summary ---
Date of Service February 02, 2022 History of Present Illness The patient was not particularly engaged in consultation on the med floor as per initial consult on 01/28/22, ingested: unknown amount of ASA (possibly 10 gms), salicylate level 31.3. Won't elaborate other than confirm they were taking medications as prescribed, perhaps not engaged regularly with therapy since other therapist left psych clinic. Insulin pump is out and eating/drinking. gluc checks "high but not horrible." Today they state "I hate my work" but doesn't see alot of options, they requested to reassigned to a different therapist at psych clinic so essentially some lapse in treatment. They seem to have some change in relationship with [facility] as feels it was implied they may not be able to live there if have a suicide attempt there. This resulted in them reportedly ingesting the pills in the car and then not going inside when felt the need to lay down. "I don't feel safe there", meaning is looking for subsidized housing. Talks about the hopelessness in life though also actively managing diabetes and wanting to try a low nickel diet for their skin as recommended by derm. Physical Exam Psychiatric See admission H&P and DOD assessment. Vital Signs (Past 24 Hours) Last Vital Signs Temp 36.9 C 02/02/22 06:46 Pulse 95 H 02/02/22 06:46 Resp 16 02/02/22 06:46 BP 96/64 L 02/02/22 09:52 Pulse Ox 98 01/29/22 14:08 O2 Del Method 01/29/22 14:08 Principal Diagnosis depression Psychiatric Data See daily stay summary. In short, safety was maintained and the patient was superficially cooperative yet dismissive of care. Medication changes included restarting their outpatient medications following transfer from the medical floor and they tolerated this well with only mild N. They were initially resistant to involving case management in their stay but ultimately complied with phone session and are scheduled to meet with their therapist. A safety plan was completed prior to discharge. The patient seems to dismiss their longstanding diagnosis of borderline personality disorder but does recognize suicidal thoughts are chronic and that acute inpatient hospitalization can do little to mitigate their significant risk factors--prior attempts, diabetes/access to insulin, access to medically necessary medications with no one to secure, chronic SIB. Gestures have been escalating in frequency during period of missed appointments and now transitions through psych clinic. They have a good relationship with their outpatient prescriber and are agreeable to increase Rexulti upon discharge to assist with mood stabilization for emotional regulation. Day of Discharge Assessment Today the patient is requesting discharge. They note improvement in mood and deny imminent thoughts to harm self or others. Thoughts remain organized and they are improved from admission. There is no evidence of psychosis. They agree to take mediations as prescribed and keep follow-up appointments. They are stable for discharge to outpatient level of care. Transition of Care Transition Of Care Record: was reviewed with the patient Advance Directives Advance Directives Information Provided: Yes Advance Directives: No Mental Health Advance Directive: No Advance Directives on File: No Living Will: No Power of Body Recall Instructor: No Advance Directives Reason:: Declines as Mental Health Visit. Suicide Risk Level Suicide Risk Level Comments: Suicide risk at discharge is deemed "low" as the patient is no longer requiring 24-hr monitoring, has a safety plan, and is free of suicidal ideation at discharge. They have chronic risks as above that cannot be fully mitigated. Risk Factors Assessment : Yes Do You Have Access To A Gun?: No (landlord has firearm, is aware of issues and has secured in past) Health Problems: Yes Mental Health Diagnoses: Yes Previous Attempt: Yes Previous Psychiatric Hospitalization: Yes Protective Factors Assessment Employed: Yes [employer] with Provider: Yes (psych clinic, CM) Tobacco Cessation at Discharge Tobacco Cessation Medication Prescribed at Discharge: Not Applicable/Non-Smoker Total Time Total Time Spent: Greater Than 30 Minutes Total Time Includes: Examination of the patient, Discharge Planning and Medication Reconciliation Discharge Data Lab Results 01/29/22 01/29/22 01/30/22 16:47 21:12 08:32 POC Glucose 238 H 219 H 173 H 01/30/22 01/30/22 01/30/22 12:04 17:09 21:16 POC Glucose 183 H 77 175 H 01/31/22 01/31/22 01/31/22 08:42 12:31 16:58 POC Glucose 70 107 H 124 H 01/31/22 02/01/22 02/01/22 20:17 00:51 01:08 POC Glucose 171 H 58 L* 127 H 02/01/22 02/01/22 02/01/22 08:23 12:13 17:13 POC Glucose 265 H 113 H 146 H 02/01/22 02/02/22 20:19 08:46 POC Glucose 215 H 231 H Hospital Course (1) Depression: (2) Borderline personality disorder: (3) Eating disorder: (4) Type I diabetes mellitus: (5) POTS (postural orthostatic tachycardia syndrome): (6) Suicide attempt: Plan 02/01/22: outpatient provider confirms not taking medications consistently prior to admission, particularly Zoloft as getting short supplies and hasn't been calling for refills. Appointments very sporadic. 01/31/22: patient having some N due to Zoloft, requesting Zofran. 01/30/22: The patient was admitted to the [facility] on q15 min checks (behavioral with suicide precautions) for safety. The patient will participate in group, recreational, and milieu therapies and will be offered additional individual and family sessions as clinically appropriate. J is typically switched to shorter acting propranolol while inpatient as less splitting over parameters. Patient has glycemic pharmacy consult and has been cooperative thus far with staff/unit routine. Dietary consult. Mental Health & Subst Abuse Tx Psychiatrist Name of Psychiatrist: [facility] - Dr. Annette Sahu Psychiatrist's Date of Appointment with Psychiatrist: 02/13/22 Time of Appointment with Psychiatrist: 9:00 AM Psychiatric Appointment Comment: [address] [place] [address] Therapist Name of Therapist: [facility] Date of Therapist Appointment: 02/06/22 Time of Therapist Appointment: 10 AM Therapy Appointment Comment: [address] [place] [address] Rail Grinder Name of Rail Grinder: Nani Altamirano Phone Number for Rail Grinder: [phone] Post Discharge Appointments Primary Care Physician Name Of Family Doctor: Desirae Evans PA-C (for follow-up) Primary Care Date of Appointment with PCP: 02/07/22 Time of Appointment with PCP: 11:45 AM Provider Appointment Comment: [address] [place] [address] Smoking Cessation Counseling Tobacco Cessation Medication Prescribed at Discharge: Not Applicable/Non-Smoker Contact Information Discharge Discharge Address: [address] [place] [address] Discharge Plan Discharge Items Patient Disposition: Home - Self-Care Reason For Visit: MDD Discharge Diagnosis: depressive disorder Activity: Resume your previous activity Non-emergency contact: Primary Care Provider, Psychiatrist, Therapist and Padder Cushion Call non-emergency contact if: you have any medication questions Follow-up/Referrals: PCP,NO [Primary Care Provider] - Diet: Gluten Free and Lactose Intolerant Addtl Attending Provider Instructions: SPECIAL CARE INSTRUCTIONS: 1. Follow through with your scheduled aftercare appointments. If unable to keep an appointment, please call to reschedule. 2. Take your medication only as prescribed. Medication should not be changed or stopped without the approval of your doctor. In the event of worsening symptoms or concerns about side effects, contact your doctor immediately. 3. Utilize new healthy coping skills, anger management skills, and stress management skills learned during your hospitalization. Journal feelings and process them with a support person. Identify stressors or situations that may result in relapse, deterioration or inappropriate behaviors and develop a plan to deal with those issues. 4. If your coping skills are ineffective and you are in crisis, contact your outpatient providers for direction. If unable to reach your providers, please call the [facility] CRISIS LINE AT , go to the [facility] walk-in center at [address] [place] [address], [facility], [place], or go to the closest Emergency Room. 5. Avoid alcohol and un-prescribed drugs. 6. You have been provided with the Mental Health Advance Directives Pamphlet for your review. 7. Your condition is stable for discharge to outpatient level of care, but recovery is an ongoing process. Ifthoughts to harm yourself or others return, follow the safety plan developed during your stay. Planning for a safe return home includes securing weapons. Our treatment team recommends weaponsbe removed from the home until your outpatient provider reassesses your progress. In rare cases where the items themselvescannot be removed, guns and ammunitionshould be secured separatelyand keys stored by a reliable personoutside of the home. If you were admitted on an involuntary commitment, the police or other legal authorities may be involved in this process. AFTERCARE APPOINTMENTS: * Please call your insurance company prior to your scheduled appointment to confirm your aftercare providers are covered. Take your insurance information to your appointments. WHO TO CALL AND WHEN: Medical Emergencies: For questions or emergencies related to your hospital stay, please contact the Inpatient Behavioral Health Unit at [phone]. A orthotic/prosthetic clinician is on-call 26/11 for the Behavioral Health Unit for emergencies At any time you feel your situation is an emergency, you may also call 911 immediately. Pending Studies at Discharge: No Stand-Alone Forms: My [facility] [employer] [facility], Smoking Cessation Medications and DC Order Prescriptions: New Rexulti 2 mg tablet 2 mg PO DAILY Qty: 30 0RF bupropion HCl 300 mg Tablet Extended Release 24 Hr 300 mg PO DAILY Qty: 1 0RF Continued Basaglar KwikPen U-100 Insulin 100 unit/mL (3 mL) insulin pen 20 units SQ DAILY@16 PRN (Reason: Novolog Pump Failure) Rx Instructions: If pump fails propranolol [Inderal LA] 60 mg capsule,extended release 24 hr 60 mg PO HS Qty: 30 5RF Botox 200 unit recon soln See Rx Instructions IM .COMPLEX Qty: 1 3RF Rx Instructions: 155 UNITS IM IN THE FACE AND NECK MUSCLES EVERY 12 WEEKS PER MIGRAINE PROTOCOL (DME) Aerochamber MV spacer See Rx Instructions .ROUTE .MEDSUPPLY Qty: 1 0RF Rx Instructions: As directed hydroxyzine HCl 25 mg tablet 25 mg PO DAILY PRN (Reason: Anxiety) (DME) Ketostix Strip See Rx Instructions .ROUTE .MEDSUPPLY Qty: 100 2RF Rx Instructions: As directed to check ketones Trueplus glucagon 3 mg/actuation spray,non-aerosol 3 mg intranasal PRN Qty: 2 3RF (DME) insulin syringe-needle U-100 [BD Insulin Syringe] 0.3 mL 29 gauge x 1/2" syringe See Rx Instructions .Route Qty: 100 3RF Rx Instructions: As directed; 4x per day in case of pump failure (DME) comp.stocking,thigh,short,smal Misc See Rx Instructions .ROUTE .MEDSUPPLY Qty: 2 1RF Rx Instructions: As directed vitamin E (dl, acetate) 45 mg (100 unit) capsule 45 mg PO QAM cholecalciferol (vitamin D3) 50 mcg (2,000 unit) capsule 100 mcg PO DAILY prenat.vits,mathieu,mik-nmub-yggch Tablet 1 tab PO QAM (DME) insulin pump controller Misc MISCELLANEOUS sodium chloride 1 gram tablet 1,000 mg PO BID PRN (Reason: orthostatic hypotension) insulin aspart U-100 [Novolog U-100 Insulin aspart] 100 unit/mL Solution See Rx Instructions .ROUTE .COMPLEX Qty: 10 0RF Rx Instructions: Range 110-140, Correction factor 50, Carbohydrate ratio 1 unit:8 grams insulin aspart U-100 100 unit/mL solution 100 unit continuous subcutaneous infusion CONTINOUS 90 Days Qty: 90 1RF Rx Instructions: TDD 60 units/day Restart upon discharge from hospital trazodone 50 mg tablet 50 mg PO HS PRN (Reason: Insomnia) fluticasone propionate [Flovent HFA] 220 mcg/actuation HFA aerosol inhaler 220 mcg INHALATION QAM pantoprazole 40 mg tablet,delayed release (DR/EC) 40 mg PO BID omega 7-kzs-ebv-fish oil [Fish Oil] 1,000 mg (120 mg-180 mg) Capsule 1 cap PO HS Linzess 72 mcg capsule 72 mcg PO DAILY PRN (Reason: Constipation) sertraline [Zoloft] 50 mg tablet 50 mg PO DAILY Qty: 7 0RF Discontinued propranolol 10 mg tablet 10 mg PO BID PRN (Reason: palpitations) Qty: 60 2RF insulin glargine [Lantus U-100 Insulin] 100 unit/mL Solution 15 unit subcut DAILY@1600 Qty: 10 0RF Rexulti 1 mg tablet 1 mg PO QAM bupropion HCl 450 mg Tablet Extended Release 24 Hr 450 mg PO QAM Discharge Orders: Discharge Order (Routine); Ordered 02/02/22 Ordered By: Mary Elizabeth Admission Data Admit Date/Time: 01/29/22 13:07 Attending Provider: Mary Elizabeth Admit Provider: Mary Elizabeth Primary Care Provider: PCP,NO Other Interventions: Discharge Summary Assessment (RN) Last Done: 02/02/22 10:22 PSY Interdisciplinary Discharge Planning Last Done: 02/02/22 10:31 Coding Level of Care Code 14411 D/C day mgmt > 30 min Diagnoses Depression F32.9 Borderline personality disorder F60.3 Eating disorder F50.9 Type I diabetes mellitus E10.69 Diabetes mellitus complication status: with other specified complication POTS (postural orthostatic tachycardia syndrome) I49.8 Suicide attempt T14.91XA
== END 2022-02-02 11:16 | disposition home or self-care (01) | DRG 881 ==
LOC: 3S 13:07